=== PATIENT | female | born 1960 | race American Indian/Alaskan Native ===

== ENCOUNTER 2018-01-04 11:30 | Inpatient (IN) | payer MEDICAID, OTHER ==
[2018-01-04 11:35] VITALS: BMI 24.1
[2018-01-04] MEDS ORDERED: Iodixanol 320 mg/ml 150 ml Bottle IV ONE (11:41)
[2018-01-04 11:49] LABS: BASO # 0.1 K/uL (0.0-0.2); BASO % 0.8 % (0.0-2.0); EOS % 0.1 % (0.0-4.0); HEMOGLOBIN 13.1 g/dL (11.0-16.0); LYMPH # 2.4 K/uL (1.0-4.3); LYMPH % 21.8 % (20.0-40.0); MEAN CELL VOLUME 95.3 fL (81.0-99.0); MEAN CORPUSCULAR HEMOGLOBIN 32.6 pg (27.0-31.0); MEAN CORPUSCULAR HGB CONC 34.2 g/dL (33.0-37.0); MEAN PLATELET VOLUME 7.9 fL (7.2-11.7); MONO # 0.8 K/uL (0.0-0.8); MONO % 7.1 % (0.0-10.0); NEUT # 7.8 K/uL (1.8-7.0); NEUT % 70.2 % (50.0-75.0); RBC 4.03 Mil/uL (3.80-5.20); RED CELL DISTRIBUTION WIDTH 15.3 % (11.5-14.5); WHITE BLOOD COUNT 11.1 K/uL (4.8-10.8)
[2018-01-04 11:57] LABS: INR 1.1; PROTHROMBIN TIME 12.2 SECONDS (9.7-12.2)
[2018-01-04 12:02] LABS: ALB/GLOB RATIO 0.9 (1.0-2.1); ALBUMIN 3.9 g/dL (3.5-5.0); ALT/SGPT 59 U/L (9-52); AST/SGOT 88 U/L (14-36); BLOOD UREA NITROGEN 4 mg/dL (7-17); GFR AFRICAN-AMERICAN > 60; GFR NON-AFRICAN AMERICAN > 60; HDL CHOLESTEROL 81 mg/dL (30-70)
--- NOTE | 2018-01-04 12:07 | CT ---
PROCEDURE: CT HEAD WITHOUT CONTRAST. HISTORY: Code Stroke, left-sided weakness COMPARISON: None available. TECHNIQUE: Axial computed tomography images were obtained through the head/brain without intravenous contrast. Radiation dose: Total exam DLP = 860.66 mGy-cm. This CT exam was performed using one or more of the following dose reduction techniques: Automated exposure control, adjustment of the mA and/or kV according to patient size, and/or use of iterative reconstruction technique. FINDINGS: HEMORRHAGE: No intracranial hemorrhage. BRAIN: Hypodensity and loss of rushing-white matter differentiation noted at the right temporal frontal anterior parietal lobe suggestive of acute right MCA territory infarction. There is suspicious for right dens MCA sign. No atrophy or chronic microvascular ischemic changes. VENTRICLES: Unremarkable. No hydrocephalus. CALVARIUM: Unremarkable. PARANASAL SINUSES: Unremarkable as visualized. No significant inflammatory changes. MASTOID AIR CELLS: Unremarkable as visualized. No inflammatory changes. OTHER FINDINGS: None. IMPRESSION: Large hypodensity at the right brain suggestive of acute right MCA territory infarction. Suspicious for right dense MCA sign. If clinically warranted CTA of the head is suggested to evaluate for right MCA occlusion.
[2018-01-04 12:12] LABS: LDL CHOLESTEROL 92 mg/dL (0-129)
[2018-01-04] MEDS ORDERED: Potassium Chl 40 mEq in D5-1/2 1,000 ML IV SCH (12:30)
--- NOTE | 2018-01-04 12:43 | CT ---
PROCEDURE: CT Angiography of the NECK AND Brain. HISTORY: code stroke, LEFT-SIDED WEAKNESS COMPARISON: None available. TECHNIQUE: CT angiography of the neck and intracranial arteries was performed. Coronal and sagittal maximum intensity projection reformated images were generated. This CT exam was performed using one or more of the following dose reduction techniques: Automated exposure control, adjustment of the mA and/or kV according to patient size, and/or use of iterative reconstruction technique. Total exam DLP: 514.46 FINDINGS: There is common origin of the right brachiocephalic artery and left common carotid artery. The left vertebral artery originates from the aortic arch. RIGHT CAROTID ARTERIES: Common Carotid Artery: Tortuous without evidence of focal stenosis. Carotid Bifurcation: Small foci of calcifications seen. Internal Carotid Artery:There is focal moderate approximately 75-80 percent stenosis seen at the origin of right internal carotid artery. External Carotid Artery (proximal branches): Normal. LEFT CAROTID ARTERIES: Common Carotid Artery: Atherosclerotic calcifications seen at the distal left common carotid artery Carotid Bifurcation: Atherosclerotic disease and mural thickening with focal stenosis noted at the carotid bifurcation Internal Carotid Artery:Mild approximately 50 percent stenosis seen at the origin of the left internal carotid artery. External Carotid Artery (proximal branches): Normal. VERTEBRAL ARTERIES: Right Vertebral Artery: Patent Left Vertebral Artery: Patent INTERNAL CEREBRAL ARTERIES: . The skull base, petrous, cavernous and supraclinoid segments are bilaterally patent. There are foci of mild approximately 50 percent stenosis seen at the supraclinoid portion of the left internal carotid artery There are foci of atherosclerotic calcifications seen at the supraclinoid segments and in the internal terminus portion of the distal internal carotid arteries. ANTERIOR CEREBRAL ARTERIES: The left A1 is very small in size/hypoplastic. The right A1 is patent. Post anterior cerebral arteries are patent. MIDDLE CEREBRAL ARTERIES: There is diffuse narrowing of the M1 segment of the right middle cerebral artery. There is a sharp cart of at the M1 bifurcation of the right middle cerebral artery. There is occlusion of the anterior temporal into segment of the right middle cerebral artery. POSTERIOR CIRCULATION: Basilar Artery: Unremarkable. Distal Vertebral Arteries: Small size distal vertebral arteries noted. Posterior Cerebral Arteries: Post posterior cerebral arteries are patent. Posterior Inferior Cerebellar Arteries: Unremarkable. ANEURYSM/ VASCULAR MALFORMATIONS: None. OTHER FINDINGS: None. IMPRESSION: Focal moderate stenosis approximately 75-80 percent noted at the origin of the right internal carotid artery with possible soft plaque. Mild approximately 55 percent stenosis noted at the origin of the left internal carotid artery. Diffuse atherosclerotic disease and calcification noted at the distal internal carotid arteries bilaterally with foci of mild stenosis noted at the supraclinoid portion of the left internal carotid artery. Diffuse approximately 50 percent stenosis of M1 segment of the right middle cerebral artery. Sharp cut off at the M1 bifurcation of the right middle cerebral artery noted. Occlusion of the anterior temporal M2 segment of the right middle cerebral artery at its origin.
--- NOTE | 2018-01-04 12:53 | C.PDOC ---
History Of Present Illness Patient is a 57 y/o female who presents to the ED with family complaining of slurred speech and leaning to the left side at 11am this morning. Patient's family reported patient was last seen at baseline around 9:30 pm last night. Patient admits to drinking Merlot last night; family notes slurred speech subsequent to 9:30pm when patient answered a phone call, but attributed it to alcohol intoxication; patient also rolled out of bed last night and hit head. Denies any CP or SOB. No other physical complaints at this time. Time Seen by Provider: 01/04/18 11:35 Chief Complaint (Nursing): Weakness/Neurological Deficit History Per: Patient, Family History/Exam Limitations: no limitations Onset/Duration Of Symptoms: Hrs (last at baseline at 9:30pm last night) Current Symptoms Are (Timing): Still Present Recent travel outside of the [place]: No - Symptoms Of CVA Associated Symptoms: Impaired Speech, Decreased Ability To Walk (leaning to the left) Recent Head Trauma: Yes Past Medical History Reviewed: Historical Data, Nursing Documentation, Vital Signs Vital Signs: Last Vital Signs Temp 98 F 01/04/18 13:13 Pulse 99 H 01/04/18 13:13 Resp 18 01/04/18 13:13 BP 173/104 H 01/04/18 13:13 Pulse Ox 100 01/04/18 13:25 - Medical History PMH: No Chronic Diseases Surgical History: No Surg Hx Family History: States: No Known Family Hx - Social History Hx Tobacco Use: Yes Hx Alcohol Use: Yes Hx Substance Use: No - Immunization History Hx Tetanus Toxoid Vaccination: No Hx Influenza Vaccination: No Hx Pneumococcal Vaccination: No Review Of Systems Neurological: Positive for: Change in Speech (slurred) Physical Exam - Physical Exam Appears: No Acute Distress Skin: Normal Color, Warm, Dry Head: Atraumatic, Normacephalic Eye(s): right: Other (right gaze palsy with inability to look to the left) Oral Mucosa: Moist Cardiovascular: Rhythm Regular, No Murmur Respiratory: Normal Breath Sounds, No Rales, No Rhonchi, No Wheezing Gastrointestinal/Abdominal: Soft, No Tenderness Neurological/Psych: Normal Motor (0/5 strength in left upper and lower extremities) Other Neurological Findings: Facial Palsy (left facial palsy) Additional Physical Exam Comments: Assessment: CVA ED Course And Treatment - Laboratory Results Result Diagrams: 01/04/18 11:43 01/04/18 11:43 ECG: Interpreted By Me, Viewed By Me ECG Rhythm: Sinus Rhythm, Nonspecific Changes Interpretation Of ECG: normal intervals, normal axis, no ST/T wave abnormalities Rate From EC (bpm) O2 Sat by Pulse Oximetry: 100 (room air) Pulse Ox Interpretation: Normal - CT Scan/US CTA Other Rad Studies (CT/US): Interpreted By Me, Read By Radiologist CT/US Interpretation: PROCEDURE: CT Angiography of the NECK AND Brain. HISTORY : code stroke, LEFT-SIDED WEAKNESS. COMPARISON: None available. TECHNIQUE: CT angiography of the neck and intracranial arteries was performed. Coronal and sagittal maximum intensity projection reformated images were generated. This CT exam was performed using one or more of the following dose reduction techniques: Automated exposure control, adjustment of the mA and/or kV according to patient size, and/or use of iterative reconstruction technique. Total exam DLP: 514.46. FINDINGS: There is common origin of the right brachiocephalic artery and left common carotid artery. The left vertebral artery originates from the aortic arch. RIGHT CAROTID ARTERIES: Common Carotid Artery: Tortuous without evidence of focal stenosis. Carotid Bifurcation: Small foci of calcifications seen. Internal Carotid Artery:There is focal moderate approximately 75-80 percent stenosis seen at the origin of right internal carotid artery. External Carotid Artery (proximal branches): Normal. LEFT CAROTID ARTERIES: Common Carotid Artery: Atherosclerotic calcifications seen at the distal left common carotid artery. Carotid Bifurcation: Atherosclerotic disease and mural thickening with focal stenosis noted at the carotid bifurcation. Internal Carotid Artery:Mild approximately 50 percent stenosis seen at the origin of the left internal carotid artery. External Carotid Artery (proximal branches): Normal. VERTEBRAL ARTERIES: Right Vertebral Artery: Patent. Left Vertebral Artery: Patent. INTERNAL CEREBRAL ARTERIES: . The skull base, petrous, cavernous and supraclinoid segments are bilaterally patent. There are foci of mild approximately 50 percent stenosis seen at the supraclinoid portion of the left internal carotid artery There are foci of atherosclerotic calcifications seen at the supraclinoid segments and in the internal terminus portion of the distal internal carotid arteries. ANTERIOR CEREBRAL ARTERIES: The left A1 is very small in size/hypoplastic. The right A1 is patent. Post anterior cerebral arteries are patent. MIDDLE CEREBRAL ARTERIES: There is diffuse narrowing of the M1 segment of the right middle cerebral artery. There is a sharp cart of at the M1 bifurcation of the right middle cerebral artery. There is occlusion of the anterior temporal into segment of the right middle cerebral artery. POSTERIOR CIRCULATION: Basilar Artery: Unremarkable. Distal Vertebral Arteries : Small size distal vertebral arteries noted. Posterior Cerebral Arteries: Post posterior cerebral arteries are patent. Posterior Inferior Cerebellar Arteries: Unremarkable. ANEURYSM/ VASCULAR MALFORMATIONS: None. OTHER FINDINGS: None. IMPRESSION: Focal moderate stenosis approximately 75-80 percent noted at the origin of the right internal carotid artery with possible soft plaque. Mild approximately 55 percent stenosis noted at the origin of the left internal carotid artery. Diffuse atherosclerotic disease and calcification noted at the distal internal carotid arteries bilaterally with foci of mild stenosis noted at the supraclinoid portion of the left internal carotid artery. Diffuse approximately 50 percent stenosis of M1 segment of the right middle cerebral artery. Sharp cut off at the M1 bifurcation of the right middle cerebral artery noted. Occlusion of the anterior temporal M2 segment of the right middle cerebral artery at its origin. CT head Other Rad Studies (CT/US): Interpreted By Me, Read By Radiologist CT/US Interpretation: PROCEDURE: CT HEAD WITHOUT CONTRAST. HISTORY: Code Stroke, left-sided weakness. COMPARISON: None available. TECHNIQUE: Axial computed tomography images were obtained through the head/brain without intravenous contrast. Radiation dose: Total exam DLP = 860.66 mGy-cm. This CT exam was performed using one or more of the following dose reduction techniques: Automated exposure control, adjustment of the mA and/or kV according to patient size, and/or use of iterative reconstruction technique. FINDINGS: HEMORRHAGE: No intracranial hemorrhage. BRAIN: Hypodensity and loss of rushing-white matter differentiation noted at the right temporal frontal anterior parietal lobe suggestive of acute right MCA territory infarction. There is suspicious for right dens MCA sign. No atrophy or chronic microvascular ischemic changes. VENTRICLES: Unremarkable. No hydrocephalus. CALVARIUM: Unremarkable. PARANASAL SINUSES: Unremarkable as visualized. No significant inflammatory changes. MASTOID AIR CELLS: Unremarkable as visualized. No inflammatory changes. OTHER FINDINGS: None. IMPRESSION: Large hypodensity at the right brain suggestive of acute right MCA territory infarction. Suspicious for right dense MCA sign. If clinically warranted CTA of the head is suggested to evaluate for right MCA occlusion. Progress Note: Head CT, EKG, CXR, drug screen, echo, and blood work ordered. Aspirin, IV fluids, and dextrose administered. Case discussed with Dr. Lebron; Dr. Villarreal notified for admission. ICU evaluated and accepted patient under Dr. Villarreal's service. - Physician Consult Information Time Consulting Physician Contacted: 12:30 Physician Contacted: Lars Castillo Outcome Of Conversation: CT and CTA ordered. CT demonstrates right CVA and case discussed further with Dr. Castillo at 12:40pm; patient is not a candidate for TPA. Critical Care Time - Critical Care Note Total Time (in mins): 90 Documented critical care: time excludes all time spent performing seperately billable procedures. Disposition Discussed With DrNicole: Vitaliy Villarreal Doctor Will See Patient In The: Hospital Counseled Patient/Family Regarding: Studies Performed, Diagnosis - Disposition Disposition: HOSPITALIZED Disposition Time: 13:21 Condition: FAIR - Clinical Impression Clinical Impression: CVA (cerebral vascular accident) - Scribe Statement The provider has reviewed the documentation as recorded by the Scribe Bridgette Ingram All medical record entries made by the Scribe were at my direction and personally dictated by me. I have reviewed the chart and agree that the record accurately reflects my personal performance of the history, physical exam, medical decision making, and the department course for this patient. I have also personally directed, reviewed, and agree with the discharge instructions and disposition. NIHSS Stroke Scale - Date/Time Evaluation Performed Date Performed: 01/04/18 Time Performed: 11:35 When Was NIHSS Performed: Baseline - How Severe is the Stroke Level of Consciousness: 0=Alert LOC to Questions: 0=Both comments correct LOC to commands: 0=Obeys both correctly Best Gaze: 1=Partial gaze palsy Visual: 1=Partial hemianopia Facial: 2=Partial (lower face paralysis) Motor Arm - Left: 4=No movement Motor Arm - Right: 0=No drift Motor Leg - Left: 4=No movement Motor Leg - Right: 0=No drift Limb Ataxia: 1=Present Upper or Lower Sensory: 1=Mild to moderate loss Best Language: 1=Mild to moderate aphasia Dysarthia: 1=Mild to moderate slurring Extinction & Inattention (Neglect): 1=Partial neglect (mild santino-attention) Score: 17
[2018-01-04 12:59] LABS: SQUAMOUS EPITHIAL < 1 /hpf (0-5); URINE BACTERIA MANY (<OCC); URINE BILIRUBIN NEGATIVE (NEGATIVE); URINE BLOOD 1+ (NEGATIVE); URINE CLARITY Clear (Clear); URINE COLOR Yellow (YELLOW); URINE GLUCOSE (UA) NORMAL (Normal); URINE LEUKOCYTE ESTERASE NEG Leu/uL (Negative); URINE PROTEIN NEGATIVE (NEGATIVE); URINE UROBILINOGEN NORMAL mg/dL (0.2-1.0)
[2018-01-04 13:19] LABS: BENZODIAZEPINES, UR NEGATIVE (NEGATIVE); OPIATES, UR NEGATIVE (NEGATIVE); PHENCYCLIDINE, UR NEGATIVE (NEGATIVE)
[2018-01-04 13:25] LABS: BARBITURATES, UR NEGATIVE (NEGATIVE)
--- NOTE | 2018-01-04 13:34 | CP.PCM.CON ---
History of Present Illness - History of Present Illness History of Present Illness: Chief complaint: Slurred speech History of present illness: Consultation was called for ICU because of the acute CVA. Patient is a 57-year-old female with known history of hypertension but not on any medication as per the family patient does not take any medication, but she used to be a heavy smoker. On also heavy drinker. Patient was living in [place], she recently came to [place]. Yesterday she was comparing of some headache, and she was also having some trouble according to the patient's family but at that time they did not call the ambulance, and it other family members was trying to get the ambulance but unable to bring her to the hospital. Again this morning when she wake up she was having slurred speech, weakness on the left side, and called the ambulance and came to the emergency room. The family is at bedside. Patient's sister at bedside I spoke to her in details. According to her patient is a heavy drinker, and also heavy smoker, does not see , and doesn't take any medications. In the past patient was hospitalized with the alcoholic intoxication and withdrawal. Past medical history unknown Allergies no known drug allergy Personal history: Alcoholic, and also smoker long time. Review of systems: Patient is currently awake and responding, but dense hemiplegia on the left side , and also slurred speech noted. Patient is able to understand. She does not have any chest pain, mild headache in the back of the neck noted, also sensory symptoms in the left leg on the left side noted On examination: Vital signs are reviewed Mild tachycardia, and elevated blood pressure noted Chest bilateral good air entry. Regular heart sound. Abdomen soft. Nontender. Next images no pedal edema CEO NA patient is alert and awake. Oriented. Patient has a dense hemiplegia involving the left side, associated with a sensory loss. Decreased reflexes. The patient able to comprehend, able to speak, left-sided facial weakness noted Labs reviewed Nonspecific Serum alcohol level less than [address] scan of the head showing evidence of acute right MCA territory infarct with the demarcation in the brain, suggesting recent acute CVA, non-negative CT angiogram showing atherosclerotic disease involving the right MCA occlusion Also right coronary artery disease 75-80% occlusion Assessment and recommendation: 57-year-old female with a possible history of alcoholism and hypertension and withdrawal admitted with acute right-sided ischemic infarct, and associated with left-sided dense hemiplegia with the sensory symptoms. Underlying alcoholism, withdrawal cannot be ruled out. Hypertension. Atherosclerosis. Closely monitor. ICU. Neuro watch. Neurosurgical intervention may be needed, neurological consultation. Antiplatelets, anticholesterol and DVT prophylaxis aspiration prevention and other routine ICU management Past Patient History - Past Social History Smoking Status: Heavy Smoker > 10 Cigarettes Daily - PSYCHIATRIC Hx Substance Use: No - SURGICAL HISTORY Hx Surgeries: No Meds Allergies/Adverse Reactions: Allergies Allergy/AdvReac Type Severity Reaction Status Date / Time No Known Allergies Allergy Verified 01/04/18 11:34 - Medications Medications: Current Medications Potassium Chloride/Dextrose/Sod Cl (Potassium Chl 40 Meq In D5-1/2ns) 1,000 mls @ 0 mls/hr IV .Q0M REYNALDO PRN Reason: Per Protocol Rosuvastatin Calcium (Crestor) 5 mg PO HS REYNALDO Results - Vital Signs Recent Vital Signs: Last Vital Signs Temp 98 F 01/04/18 13:13 Pulse 99 H 01/04/18 13:13 Resp 18 01/04/18 13:13 BP 173/104 H 01/04/18 13:13 Pulse Ox 100 01/04/18 13:27 - Labs Result Diagrams: 01/04/18 11:43 01/04/18 11:43 Labs: Laboratory Results - last 24 hr 01/04/18 01/04/18 01/04/18 11:35 11:43 11:43 WBC 11.1 H RBC 4.03 Hgb 13.1 Hct 38.4 MCV 95.3 MCH 32.6 H MCHC 34.2 RDW 15.3 H Plt Count 281 MPV 7.9 Neut % (Auto) 70.2 Lymph % (Auto) 21.8 Kane % (Auto) 7.1 Eos % (Auto) 0.1 Baso % (Auto) 0.8 Neut # (Auto) 7.8 H Lymph # (Auto) 2.4 Kane # (Auto) 0.8 Eos # (Auto) 0.0 Baso # (Auto) 0.1 PT 12.2 INR 1.1 APTT 26 Sodium Potassium Chloride Carbon Dioxide Anion Gap BUN Creatinine Est GFR ( Amer) Est GFR (Non-Af Amer) POC Glucose (mg/dL) 98 Random Glucose Hemoglobin A1c Calcium Total Bilirubin AST ALT Alkaline Phosphatase Troponin I Total Protein Albumin Globulin Albumin/Globulin Ratio Triglycerides Cholesterol LDL Cholesterol Direct HDL Cholesterol Urine Color Urine Clarity Urine pH Ur Specific [place] Urine Protein Urine Glucose (UA) Urine Ketones Urine Blood Urine Nitrate Urine Bilirubin Urine Urobilinogen Ur Leukocyte Esterase Urine WBC (Auto) Urine RBC (Auto) Ur Squamous Epith Cells Urine Bacteria Urine Opiates Screen Urine Methadone Screen Ur Barbiturates Screen Ur Phencyclidine Scrn Ur Amphetamines Screen U Benzodiazepines Scrn U Oth Cocaine Metabols U Cannabinoids Screen Alcohol, Quantitative Blood Type Antibody Screen 01/04/18 01/04/18 01/04/18 11:43 11:43 11:43 WBC RBC Hgb Hct MCV MCH MCHC RDW Plt Count MPV Neut % (Auto) Lymph % (Auto) Kane % (Auto) Eos % (Auto) Baso % (Auto) Neut # (Auto) Lymph # (Auto) Kane # (Auto) Eos # (Auto) Baso # (Auto) PT INR APTT Sodium 141 Potassium 3.1 L Chloride 106 Carbon Dioxide 22 Anion Gap 16 BUN 4 L Creatinine 0.5 L Est GFR ( Amer) > 60 Est GFR (Non-Af Amer) > 60 POC Glucose (mg/dL) Random Glucose 106 H Hemoglobin A1c 5.0 Calcium 9.0 Total Bilirubin 0.9 AST 88 H ALT 59 H Alkaline Phosphatase 96 Troponin I < 0.0120 Total Protein 8.0 Albumin 3.9 Globulin 4.1 H Albumin/Globulin Ratio 0.9 L Triglycerides 248 H Cholesterol 210 H LDL Cholesterol Direct 92 HDL Cholesterol 81 H Urine Color Urine Clarity Urine pH Ur Specific [place] Urine Protein Urine Glucose (UA) Urine Ketones Urine Blood Urine Nitrate Urine Bilirubin Urine Urobilinogen Ur Leukocyte Esterase Urine WBC (Auto) Urine RBC (Auto) Ur Squamous Epith Cells Urine Bacteria Urine Opiates Screen Urine Methadone Screen Ur Barbiturates Screen Ur Phencyclidine Scrn Ur Amphetamines Screen U Benzodiazepines Scrn U Oth Cocaine Metabols U Cannabinoids Screen Alcohol, Quantitative < 10 Blood Type O POSITIVE Antibody Screen Negative 01/04/18 01/04/18 12:38 12:38 WBC RBC Hgb Hct MCV MCH MCHC RDW Plt Count MPV Neut % (Auto) Lymph % (Auto) Kane % (Auto) Eos % (Auto) Baso % (Auto) Neut # (Auto) Lymph # (Auto) Kane # (Auto) Eos # (Auto) Baso # (Auto) PT INR APTT Sodium Potassium Chloride Carbon Dioxide Anion Gap BUN Creatinine Est GFR ( Amer) Est GFR (Non-Af Amer) POC Glucose (mg/dL) Random Glucose Hemoglobin A1c Calcium Total Bilirubin AST ALT Alkaline Phosphatase Troponin I Total Protein Albumin Globulin Albumin/Globulin Ratio Triglycerides Cholesterol LDL Cholesterol Direct HDL Cholesterol Urine Color Yellow Urine Clarity Clear Urine pH 5.0 Ur Specific [place] 1.031 H Urine Protein Negative Urine Glucose (UA) Normal Urine Ketones Negative Urine Blood 1+ H Urine Nitrate Positive H Urine Bilirubin Negative Urine Urobilinogen Normal Ur Leukocyte Esterase Neg Urine WBC (Auto) 2 Urine RBC (Auto) 1 Ur Squamous Epith Cells < 1 Urine Bacteria Many H Urine Opiates Screen Negative Urine Methadone Screen Negative Ur Barbiturates Screen Negative Ur Phencyclidine Scrn Negative Ur Amphetamines Screen Negative U Benzodiazepines Scrn Negative U Oth Cocaine Metabols Negative U Cannabinoids Screen Negative Alcohol, Quantitative Blood Type Antibody Screen
[2018-01-04] MEDS ORDERED: Thiamine 100 mg/ml Inj IV ONE (13:38)
[2018-01-04] MEDS ORDERED: Sodium Chloride 0.9% 1,000 ML IV SCH (13:45)
--- NOTE | 2018-01-04 15:17 | CP.PCM.HP ---
<Juanita Yan - Last Filed: 01/04/18 15:30> History of Present Illness - History of Present Illness History of Present Illness: HPI: Patient is a 57 year old female with no significant PMH who presents to the ED with LEFT sided paralysis. Her family was at bedside. Patient was here from [place] visiting her family and last night she started having slurred speech around 8 pm. The family was a little concerned but knew she had been drinking wine so they were unsure if it was an actual problem. They then noticed she was acting "off" and had some weakness in her LEFT arm around 9:45 pm. Family called the ambulance, however when the ambulance arrived, the son and patient would not let the EMS in the door. Patient says she had a RIGHT- sided headache all night and then when she woke up this morning she could not move her LEFT arm or leg and also had no feeling in these extremities. Patient relays a recent history of tauma to her head stating that she had fallen on her birthday in [birth year] and noticed blurring of her vision out of her LEFT eye since then. She also remembers falling out of her bed yesterday morning and bumping her head. She denies any fever, chills, dizziness, changes in her hearing, chest pain, SOB, palpitations, cough, abdominal pain, nausea, vomiting , diarrhea, constipation, dysuria, urinary frequency, blood in urine/stool, and lower extremity pain or edema. PMD: patient cannot remember the name but sees a primary care doctor in [place] PMH: denies Meds: denies Allergies: NKDA FH: denies SH: heavy drinker (quit drinking liquor 1 month ago but still has wine everyday) ; smokes 1/2-1 PPD for 45 years; denies elicit drug use Present on Admission - Present on Admission Any Indicators Present on Admission: No Review of Systems - Constitutional Constitutional: Headache, Weakness. absent: Chills, Fever - EENT Eyes: Blurred Vision (left eye ), Diplopia (left eye ) Ears: absent: Decreased Hearing Nose/Mouth/Throat: Dysphagia - Cardiovascular Cardiovascular: absent: Chest Pain, Dyspnea, Palpitations - Respiratory Respiratory: absent: Cough, Dyspnea - Gastrointestinal Gastrointestinal: absent: Abdominal Pain, Change in Bowel Habits, Constipation, Diarrhea, Hematochezia, Melena, Nausea, Vomiting - Genitourinary Genitourinary: absent: Dysuria, Urinary Frequency, Urinary Urgency - Musculoskeletal Musculoskeletal: Limited Range of Motion, Muscle Weakness, Numbness - Integumentary Integumentary: absent: Rash - Neurological Neurological: Abnormal Speech, Numbness, Headaches, Loss of Vision, Sensory Deficit, Weakness. absent: Abnormal Hearing, Syncope - Psychiatric Psychiatric: Anxiety - Hematologic/Lymphatic Hematologic: absent: Easy Bleeding, Easy Bruising Past Patient History - Past Social History Smoking Status: Heavy Smoker > 10 Cigarettes Daily - PSYCHIATRIC Hx Substance Use: No - SURGICAL HISTORY Hx Surgeries: No Meds Allergies/Adverse Reactions: Allergies Allergy/AdvReac Type Severity Reaction Status Date / Time No Known Allergies Allergy Verified 01/04/18 11:34 Physical Exam - Constitutional Appears: Non-toxic, No Acute Distress - Head Exam Head Exam: ATRAUMATIC, NORMAL INSPECTION, NORMOCEPHALIC - Eye Exam Additional comments: Left pupil sluggish to react to light rightward gaze preference - ENT Exam ENT Exam: Mucous Membranes Moist - Neck Exam Neck exam: Positive for: Normal Inspection - Respiratory Exam Respiratory Exam: Clear to Auscultation Bilateral, NORMAL BREATHING PATTERN - Cardiovascular Exam Cardiovascular Exam: Tachycardia, REGULAR RHYTHM, +S1, +S2. absent: Diastolic murmur, Gallop, Rubs, Systolic Murmur - GI/Abdominal Exam GI & Abdominal Exam: Normal Bowel Sounds, Soft. absent: Distended, Tenderness - Extremities Exam Extremities exam: Negative for: calf tenderness, pedal edema - Back Exam Back exam: NORMAL INSPECTION - Neurological Exam Neurological exam: Alert, Motor Sensory Deficit, Oriented x3 - Expanded Neurological Exam Expanded Neurological exam: Tremor (occasional, patient attributes this to anxiety ) Speech: Slurred Speech Cranial nerves: EOM's Intact: Abnormal Left, Abnormal Right (right gaze preference), Facial Palsey w/Forehead Movement: Abnormal Left, Facial Sensation : Abnormal Left, Tongue Deviation: Abnormal Left Upper motor neuron: Victoriano Neglect: Abnormal Left Sensory exam: Lower Extremity 2 Point Discrimination: Abnormal Left, Lower Extremity Light Touch: Abnormal Left, Lower Extremity Pin Prick: Abnormal Left, Lower Extremity Temperature: Abnormal Left, Upper Extremity 2 Point Discrimination: Abnormal Left, Upper Extremity Light Touch: Abnormal Left, Upper Extremity Pin Prick: Abnormal Left, Upper Extremity Temperature: Abnormal Left Neuro motor strength exam: Left Upper Extremity: 0, Right Upper Extremity: 5, Left Lower Extremity: 0, Right Lower Extremity: 5 DTR: Achilles Tendon Left: 0, Brachioradialis Left: 1+, Patellar Left: 0, Tricep Left: 1+ Coma Scale Eye Opening: SPONTANEOUS Coma Scale Motor Response: OBEYS COMMANDS Coma Scale Verbal: Oriented Coma Scale Total: 15 - Psychiatric Exam Psychiatric exam: Anxious - Skin Skin Exam: Dry, Intact, Normal Color, Warm Results - Vital Signs Recent Vital Signs: Last Vital Signs Temp 98.3 F 01/04/18 13:45 Pulse 89 01/04/18 14:03 Resp 18 01/04/18 14:03 BP 170/106 H 01/04/18 14:03 Pulse Ox 99 01/04/18 14:03 - Labs Result Diagrams: 01/04/18 11:43 01/04/18 11:43 Labs: Laboratory Results - last 24 hr 01/04/18 01/04/18 01/04/18 11:35 11:43 11:43 WBC 11.1 H RBC 4.03 Hgb 13.1 Hct 38.4 MCV 95.3 MCH 32.6 H MCHC 34.2 RDW 15.3 H Plt Count 281 MPV 7.9 Neut % (Auto) 70.2 Lymph % (Auto) 21.8 Stevens % (Auto) 7.1 Eos % (Auto) 0.1 Baso % (Auto) 0.8 Neut # (Auto) 7.8 H Lymph # (Auto) 2.4 Stevens # (Auto) 0.8 Eos # (Auto) 0.0 Baso # (Auto) 0.1 PT 12.2 INR 1.1 APTT 26 Sodium Potassium Chloride Carbon Dioxide Anion Gap BUN Creatinine Est GFR ( Amer) Est GFR (Non-Af Amer) POC Glucose (mg/dL) 98 Random Glucose Hemoglobin A1c Calcium Total Bilirubin AST ALT Alkaline Phosphatase Troponin I Total Protein Albumin Globulin Albumin/Globulin Ratio Triglycerides Cholesterol LDL Cholesterol Direct HDL Cholesterol Urine Color Urine Clarity Urine pH Ur Specific [place] Urine Protein Urine Glucose (UA) Urine Ketones Urine Blood Urine Nitrate Urine Bilirubin Urine Urobilinogen Ur Leukocyte Esterase Urine WBC (Auto) Urine RBC (Auto) Ur Squamous Epith Cells Urine Bacteria Urine Opiates Screen Urine Methadone Screen Ur Barbiturates Screen Ur Phencyclidine Scrn Ur Amphetamines Screen U Benzodiazepines Scrn U Oth Cocaine Metabols U Cannabinoids Screen Alcohol, Quantitative Blood Type Antibody Screen 01/04/18 01/04/18 01/04/18 11:43 11:43 11:43 WBC RBC Hgb Hct MCV MCH MCHC RDW Plt Count MPV Neut % (Auto) Lymph % (Auto) Stevens % (Auto) Eos % (Auto) Baso % (Auto) Neut # (Auto) Lymph # (Auto) Stevens # (Auto) Eos # (Auto) Baso # (Auto) PT INR APTT Sodium 141 Potassium 3.1 L Chloride 106 Carbon Dioxide 22 Anion Gap 16 BUN 4 L Creatinine 0.5 L Est GFR ( Amer) > 60 Est GFR (Non-Af Amer) > 60 POC Glucose (mg/dL) Random Glucose 106 H Hemoglobin A1c 5.0 Calcium 9.0 Total Bilirubin 0.9 AST 88 H ALT 59 H Alkaline Phosphatase 96 Troponin I < 0.0120 Total Protein 8.0 Albumin 3.9 Globulin 4.1 H Albumin/Globulin Ratio 0.9 L Triglycerides 248 H Cholesterol 210 H LDL Cholesterol Direct 92 HDL Cholesterol 81 H Urine Color Urine Clarity Urine pH Ur Specific [place] Urine Protein Urine Glucose (UA) Urine Ketones Urine Blood Urine Nitrate Urine Bilirubin Urine Urobilinogen Ur Leukocyte Esterase Urine WBC (Auto) Urine RBC (Auto) Ur Squamous Epith Cells Urine Bacteria Urine Opiates Screen Urine Methadone Screen Ur Barbiturates Screen Ur Phencyclidine Scrn Ur Amphetamines Screen U Benzodiazepines Scrn U Oth Cocaine Metabols U Cannabinoids Screen Alcohol, Quantitative < 10 Blood Type O POSITIVE Antibody Screen Negative 01/04/18 01/04/18 12:38 12:38 WBC RBC Hgb Hct MCV MCH MCHC RDW Plt Count MPV Neut % (Auto) Lymph % (Auto) Stevens % (Auto) Eos % (Auto) Baso % (Auto) Neut # (Auto) Lymph # (Auto) Stevens # (Auto) Eos # (Auto) Baso # (Auto) PT INR APTT Sodium Potassium Chloride Carbon Dioxide Anion Gap BUN Creatinine Est GFR ( Amer) Est GFR (Non-Af Amer) POC Glucose (mg/dL) Random Glucose Hemoglobin A1c Calcium Total Bilirubin AST ALT Alkaline Phosphatase Troponin I Total Protein Albumin Globulin Albumin/Globulin Ratio Triglycerides Cholesterol LDL Cholesterol Direct HDL Cholesterol Urine Color Yellow Urine Clarity Clear Urine pH 5.0 Ur Specific [place] 1.031 H Urine Protein Negative Urine Glucose (UA) Normal Urine Ketones Negative Urine Blood 1+ H Urine Nitrate Positive H Urine Bilirubin Negative Urine Urobilinogen Normal Ur Leukocyte Esterase Neg Urine WBC (Auto) 2 Urine RBC (Auto) 1 Ur Squamous Epith Cells < 1 Urine Bacteria Many H Urine Opiates Screen Negative Urine Methadone Screen Negative Ur Barbiturates Screen Negative Ur Phencyclidine Scrn Negative Ur Amphetamines Screen Negative U Benzodiazepines Scrn Negative U Oth Cocaine Metabols Negative U Cannabinoids Screen Negative Alcohol, Quantitative Blood Type Antibody Screen Assessment & Plan - Assessment and Plan (Free Text) Plan: Acute CVA - CT head noncontrast 11:30 AM 01/04 - large hypodensity at the right brain suggestive of acute right MCA territory infarction - Dr. Castillo, neurology consulted help appreciated: not a TPA candidate - out of time window - Admission to ICU - NIHSS - 17 - Neuro checks Q1hour, BP checks Q15 min (will intervene if bp exceed 210/110) - Elevate head of bed to 30 degrees, aspiration precautions - will follow up repeat CT in 12 hours to observe for progression and monitor for herniation - Head/Neck CTA - right coronary artyer disease 75-80% oclusion - Patient failed nursing swallow screen - f/u swalloe eval - NPO - ASA 325 given rectally in the ED - Crestor to be given when patient is able to tolerate PO, will consider NG placement - PT/OT - HbA1c 5 - UDS negative, Alcohol <10 - f/u TSH, am labs Hyperlipidemia - Tchol 210, Triglycerides 248, LDL 92, HDL 81 - Statin to be started when patient can tolerate PO Hypokalemia - K 3.1 - f/u Mg - Replaced with IV K Elevated LFTS - f/u hepatitis, GGT Leukocytosis - could be reactive - f/u UA, chest X ray Prophylaxis - Protonix 40mg IVP daily - SCDs <Vitaliy Villarreal H - Last Filed: 01/04/18 17:14> Results - Vital Signs Recent Vital Signs: Last Vital Signs Temp 98.1 F 01/04/18 16:03 Pulse 98 H 01/04/18 16:08 Resp 15 01/04/18 16:08 BP 170/106 H 01/04/18 14:03 Pulse Ox 100 01/04/18 16:08 - Labs Result Diagrams: 01/04/18 11:43 01/04/18 11:43 Labs: Laboratory Results - last 24 hr 01/04/18 01/04/18 01/04/18 11:35 11:43 11:43 WBC 11.1 H RBC 4.03 Hgb 13.1 Hct 38.4 MCV 95.3 MCH 32.6 H MCHC 34.2 RDW 15.3 H Plt Count 281 MPV 7.9 Neut % (Auto) 70.2 Lymph % (Auto) 21.8 Stevens % (Auto) 7.1 Eos % (Auto) 0.1 Baso % (Auto) 0.8 Neut # (Auto) 7.8 H Lymph # (Auto) 2.4 Stevens # (Auto) 0.8 Eos # (Auto) 0.0 Baso # (Auto) 0.1 PT 12.2 INR 1.1 APTT 26 Sodium Potassium Chloride Carbon Dioxide Anion Gap BUN Creatinine Est GFR ( Amer) Est GFR (Non-Af Amer) POC Glucose (mg/dL) 98 Random Glucose Hemoglobin A1c Calcium Total Bilirubin AST ALT Alkaline Phosphatase Troponin I Total Protein Albumin Globulin Albumin/Globulin Ratio Triglycerides Cholesterol LDL Cholesterol Direct HDL Cholesterol Urine Color Urine Clarity Urine pH Ur Specific [place] Urine Protein Urine Glucose (UA) Urine Ketones Urine Blood Urine Nitrate Urine Bilirubin Urine Urobilinogen Ur Leukocyte Esterase Urine WBC (Auto) Urine RBC (Auto) Ur Squamous Epith Cells Urine Bacteria Urine Opiates Screen Urine Methadone Screen Ur Barbiturates Screen Ur Phencyclidine Scrn Ur Amphetamines Screen U Benzodiazepines Scrn U Oth Cocaine Metabols U Cannabinoids Screen Alcohol, Quantitative Blood Type Antibody Screen 01/04/18 01/04/18 01/04/18 11:43 11:43 11:43 WBC RBC Hgb Hct MCV MCH MCHC RDW Plt Count MPV Neut % (Auto) Lymph % (Auto) Stevens % (Auto) Eos % (Auto) Baso % (Auto) Neut # (Auto) Lymph # (Auto) Stevens # (Auto) Eos # (Auto) Baso # (Auto) PT INR APTT Sodium 141 Potassium 3.1 L Chloride 106 Carbon Dioxide 22 Anion Gap 16 BUN 4 L Creatinine 0.5 L Est GFR ( Amer) > 60 Est GFR (Non-Af Amer) > 60 POC Glucose (mg/dL) Random Glucose 106 H Hemoglobin A1c 5.0 Calcium 9.0 Total Bilirubin 0.9 AST 88 H ALT 59 H Alkaline Phosphatase 96 Troponin I < 0.0120 Total Protein 8.0 Albumin 3.9 Globulin 4.1 H Albumin/Globulin Ratio 0.9 L Triglycerides 248 H Cholesterol 210 H LDL Cholesterol Direct 92 HDL Cholesterol 81 H Urine Color Urine Clarity Urine pH Ur Specific [place] Urine Protein Urine Glucose (UA) Urine Ketones Urine Blood Urine Nitrate Urine Bilirubin Urine Urobilinogen Ur Leukocyte Esterase Urine WBC (Auto) Urine RBC (Auto) Ur Squamous Epith Cells Urine Bacteria Urine Opiates Screen Urine Methadone Screen Ur Barbiturates Screen Ur Phencyclidine Scrn Ur Amphetamines Screen U Benzodiazepines Scrn U Oth Cocaine Metabols U Cannabinoids Screen Alcohol, Quantitative < 10 Blood Type O POSITIVE Antibody Screen Negative 01/04/18 01/04/18 12:38 12:38 WBC RBC Hgb Hct MCV MCH MCHC RDW Plt Count MPV Neut % (Auto) Lymph % (Auto) Stevens % (Auto) Eos % (Auto) Baso % (Auto) Neut # (Auto) Lymph # (Auto) Stevens # (Auto) Eos # (Auto) Baso # (Auto) PT INR APTT Sodium Potassium Chloride Carbon Dioxide Anion Gap BUN Creatinine Est GFR ( Amer) Est GFR (Non-Af Amer) POC Glucose (mg/dL) Random Glucose Hemoglobin A1c Calcium Total Bilirubin AST ALT Alkaline Phosphatase Troponin I Total Protein Albumin Globulin Albumin/Globulin Ratio Triglycerides Cholesterol LDL Cholesterol Direct HDL Cholesterol Urine Color Yellow Urine Clarity Clear Urine pH 5.0 Ur Specific [place] 1.031 H Urine Protein Negative Urine Glucose (UA) Normal Urine Ketones Negative Urine Blood 1+ H Urine Nitrate Positive H Urine Bilirubin Negative Urine Urobilinogen Normal Ur Leukocyte Esterase Neg Urine WBC (Auto) 2 Urine RBC (Auto) 1 Ur Squamous Epith Cells < 1 Urine Bacteria Many H Urine Opiates Screen Negative Urine Methadone Screen Negative Ur Barbiturates Screen Negative Ur Phencyclidine Scrn Negative Ur Amphetamines Screen Negative U Benzodiazepines Scrn Negative U Oth Cocaine Metabols Negative U Cannabinoids Screen Negative Alcohol, Quantitative Blood Type Antibody Screen Attending/Attestation - Attestation I have personally seen and examined this patient.: Yes I have fully participated in the care of the patient.: Yes I have reviewed all pertinent clinical information: Yes Notes (Text): Medical attending: Patient was seen and examined by me. Agree with the above note by the general medical practitioner. After reported, this is a 57 year old female who [place] when at 8 PM yesterday the family did note change in the patient. The patient - there were some family members who were concerned and at that time called an ambulance however when they did come to the house for some reason EMS was then turned away. By the morning the patient was still noted to by other family members to have weakness and this time she was brought to the ER. In the emergency room she had finding concerning for a CVA since she had very significant left arm, left leg weakness as well as left facial drooping. There is no muscle strength on the left side as well as no sensation. A CT scan was done and showed she did in fact have an acute CVA involving the Right MCA area. ER notified neurology and because of the length of time before she came into the ER she was out of the window for TPA to be given. She was able to talk, however voice / speech is very slurred. She is aware of person, place and time. There is Right side eye deviation. She has difficulty with moving eyes to the left. Pupils do contract. Her togune deviates to the left side. A CTA of the head and neck was done showing she does have on the right coronary artery stenosis of 75 to 80%. When the patient is more stable we will probably need either vascular surgery eval or neurological interventional evaluation. ASA was given rectally. She will be monitored in the ICU for changes in blood pressure as well as for any potential further neurological changes. A CT scan of the head will be repeated in 12 hrs. Because she failed the swallow study, she will be NPO. She we will also repeat swallowing study as well. I did explain to the patient and family that at some point she may need an NGT for a short period of time. Also the patient is a heavy smoker as well, we discussed this with the family. Our other large concern is the extent that the patient drinks alcohol. For now there is a PRN ativan order. However I'm not certain the patient is telling us everything about her drinking. thank you Vitaliy Villarreal
--- NOTE | 2018-01-04 15:19 | CP.PCM.PN ---
Objective - Vital Signs/Intake and Output Vital Signs (last 24 hours): Temp Pulse Resp BP Pulse Ox 98.3 F 89 18 170/106 H 99 01/04/18 13:45 01/04/18 14:03 01/04/18 14:03 01/04/18 14:03 01/04/18 14:03 - Medications Medications: Current Medications Aspirin (Aspirin) 325 mg PO DAILY REYNALDO Potassium Chloride/Dextrose/Sod Cl (Potassium Chl 40 Meq In D5-1/2ns) 1,000 mls @ 0 mls/hr IV .Q0M REYNALDO PRN Reason: Per Protocol Folic Acid 1 mg/ Sodium (Chloride) 100.2 mls @ 60 mls/hr IV DAILY REYNALDO Sodium Chloride (Sodium Chloride 0.9%) 1,000 mls @ 50 mls/hr IV .Q20H REYNALDO Last Admin: 01/04/18 14:22 Dose: 50 mls/hr Lorazepam (Ativan) 1 mg IVP Q6H PRN PRN Reason: Anxiety Pantoprazole Sodium (Protonix Inj) 40 mg IVP DAILY REYNALDO Rosuvastatin Calcium (Crestor) 5 mg PO HS REYNALDO - Labs Labs: 01/04/18 11:43 01/04/18 11:43 PT 12.2 SECONDS (9.7-12.2) 01/04/18 11:43 INR 1.1 01/04/18 11:43 APTT 26 SECONDS (21-34) 01/04/18 11:43 Assessment and Plan - Assessment and Plan (Free Text) Assessment: Acute CVA - CT head noncontrast 11:30 AM 01/04 - large hypodensity at the right brain suggestive of acute right MCA territory infarction - Dr. Castillo, neurology consulted help appreciated: not a TPA candidate - out of time window - Admission to ICU - NIHSS - 17 - Neuro checks Q1hour, BP checks Q15 min (will intervene if bp exceed 210/110) - Elevate head of bed to 30 degrees, aspiration precautions - will follow up repeat CT in 12 hours to observe for progression and monitor for herniation - Head/Neck CTA - right coronary artyer disease 75-80% oclusion - Patient failed nursing swallow screen - f/u swalloe eval - NPO - ASA 325 given rectally in the ED - Crestor to be given when patient is able to tolerate PO, will consider NG placement - PT/OT - HbA1c 5 - UDS negative, Alcohol <10 - f/u TSH, am labs Hyperlipidemia - Tchol 210, Triglycerides 248, LDL 92, HDL 81 - Statin to be started when patient can tolerate PO Hypokalemia - K 3.1 - f/u Mg - Replaced with IV K Elevated LFTS - f/u hepatitis, GGT Leukocytosis - could be reactive - f/u UA, chest X ray Prophylaxis - Protonix 40mg IVP daily - SCDs
--- NOTE | 2018-01-04 16:44 | RAD ---
HISTORY: Code Stroke COMPARISON: Comparison is made to 10/28/2012 FINDINGS: LUNGS: No active pulmonary disease. PLEURA: No significant pleural effusion identified, no pneumothorax apparent. CARDIOVASCULAR: Normal. OSSEOUS STRUCTURES: No significant abnormalities. VISUALIZED UPPER ABDOMEN: Normal. OTHER FINDINGS: None. IMPRESSION: No active disease.
--- NOTE | 2018-01-04 19:41 | CP.PCM.CON ---
History of Present Illness - History of Present Illness History of Present Illness: Mrs. Bui is a 57-year-old woman with no significant past medical history, who presented to the ED with left side weakness. The last time she was known well was last night at around 9 PM. According to the family's report, the patient began having left side weakness at around 9:45 PM last night and EMS was called, but the patient did not want to let them in. She had a right sided headache all night and when she woke up this morning, she could not move her left side. She presented to the ED this morning and CT scan of the head showed a large right MCA subacute ischemic stroke. CTA of the head/neck showed right ICA stenosis and right MCA multiple areas of occlusions and stenosis. She was not a candidate for IV tPA due to being outside the 4.5 hour time window, and was not a good candidate for thrombectomy due to multiple areas of completed infarct and ASPECT score below 6. Review of Systems - Review of Systems All systems: reviewed and no additional remarkable complaints except Past Patient History - Past Social History Smoking Status: Heavy Smoker > 10 Cigarettes Daily - MUSCULOSKELETAL/RHEUMATOLOGICAL Hx Falls: No - PSYCHIATRIC Hx Substance Use: No - SURGICAL HISTORY Hx Surgeries: No Meds Allergies/Adverse Reactions: Allergies Allergy/AdvReac Type Severity Reaction Status Date / Time No Known Allergies Allergy Verified 01/04/18 11:34 - Medications Medications: Current Medications Aspirin (Aspirin) 325 mg PO DAILY [facility] Potassium Chloride/Dextrose/Sod Cl (Potassium Chl 40 Meq In D5-1/2ns) 1,000 mls @ 0 mls/hr IV .Q0M [facility] PRN Reason: Per Protocol Folic Acid 1 mg/ Sodium (Chloride) 100.2 mls @ 60 mls/hr IV DAILY [facility] Sodium Chloride (Sodium Chloride 0.9%) 1,000 mls @ 50 mls/hr IV .Q20H [facility] Last Admin: 01/04/18 14:22 Dose: 50 mls/hr Lorazepam (Ativan) 1 mg IVP Q6H PRN PRN Reason: Anxiety Pantoprazole Sodium (Protonix Inj) 40 mg IVP DAILY [facility] Rosuvastatin Calcium (Crestor) 5 mg PO HS [facility] Physical Exam - Neurological Exam Additional comments: Dysarthria, not aphasia. Left side hemiplegia, left side neglect with anesthesia, upgoing plantar response. NIHSS = 14 Results - Vital Signs Recent Vital Signs: Last Vital Signs Temp 98.1 F 01/04/18 16:03 Pulse 98 H 01/04/18 16:08 Resp 15 01/04/18 16:08 BP 170/106 H 01/04/18 14:03 Pulse Ox 100 01/04/18 16:08 - Labs Result Diagrams: 01/04/18 11:43 01/04/18 11:43 Labs: Laboratory Results - last 24 hr 01/04/18 01/04/18 01/04/18 11:35 11:43 11:43 WBC 11.1 H RBC 4.03 Hgb 13.1 Hct 38.4 MCV 95.3 MCH 32.6 H MCHC 34.2 RDW 15.3 H Plt Count 281 MPV 7.9 Neut % (Auto) 70.2 Lymph % (Auto) 21.8 Leake % (Auto) 7.1 Eos % (Auto) 0.1 Baso % (Auto) 0.8 Neut # (Auto) 7.8 H Lymph # (Auto) 2.4 Leake # (Auto) 0.8 Eos # (Auto) 0.0 Baso # (Auto) 0.1 PT 12.2 INR 1.1 APTT 26 Sodium Potassium Chloride Carbon Dioxide Anion Gap BUN Creatinine Est GFR ( Amer) Est GFR (Non-Af Amer) POC Glucose (mg/dL) 98 Random Glucose Hemoglobin A1c Calcium Total Bilirubin AST ALT Alkaline Phosphatase Troponin I Total Protein Albumin Globulin Albumin/Globulin Ratio Triglycerides Cholesterol LDL Cholesterol Direct HDL Cholesterol Urine Color Urine Clarity Urine pH Ur Specific [place] Urine Protein Urine Glucose (UA) Urine Ketones Urine Blood Urine Nitrate Urine Bilirubin Urine Urobilinogen Ur Leukocyte Esterase Urine WBC (Auto) Urine RBC (Auto) Ur Squamous Epith Cells Urine Bacteria Urine Opiates Screen Urine Methadone Screen Ur Barbiturates Screen Ur Phencyclidine Scrn Ur Amphetamines Screen U Benzodiazepines Scrn U Oth Cocaine Metabols U Cannabinoids Screen Alcohol, Quantitative Blood Type Antibody Screen 01/04/18 01/04/18 01/04/18 11:43 11:43 11:43 WBC RBC Hgb Hct MCV MCH MCHC RDW Plt Count MPV Neut % (Auto) Lymph % (Auto) Leake % (Auto) Eos % (Auto) Baso % (Auto) Neut # (Auto) Lymph # (Auto) Leake # (Auto) Eos # (Auto) Baso # (Auto) PT INR APTT Sodium 141 Potassium 3.1 L Chloride 106 Carbon Dioxide 22 Anion Gap 16 BUN 4 L Creatinine 0.5 L Est GFR ( Amer) > 60 Est GFR (Non-Af Amer) > 60 POC Glucose (mg/dL) Random Glucose 106 H Hemoglobin A1c 5.0 Calcium 9.0 Total Bilirubin 0.9 AST 88 H ALT 59 H Alkaline Phosphatase 96 Troponin I < 0.0120 Total Protein 8.0 Albumin 3.9 Globulin 4.1 H Albumin/Globulin Ratio 0.9 L Triglycerides 248 H Cholesterol 210 H LDL Cholesterol Direct 92 HDL Cholesterol 81 H Urine Color Urine Clarity Urine pH Ur Specific [place] Urine Protein Urine Glucose (UA) Urine Ketones Urine Blood Urine Nitrate Urine Bilirubin Urine Urobilinogen Ur Leukocyte Esterase Urine WBC (Auto) Urine RBC (Auto) Ur Squamous Epith Cells Urine Bacteria Urine Opiates Screen Urine Methadone Screen Ur Barbiturates Screen Ur Phencyclidine Scrn Ur Amphetamines Screen U Benzodiazepines Scrn U Oth Cocaine Metabols U Cannabinoids Screen Alcohol, Quantitative < 10 Blood Type O POSITIVE Antibody Screen Negative 01/04/18 01/04/18 01/04/18 12:38 12:38 17:33 WBC RBC Hgb Hct MCV MCH MCHC RDW Plt Count MPV Neut % (Auto) Lymph % (Auto) Leake % (Auto) Eos % (Auto) Baso % (Auto) Neut # (Auto) Lymph # (Auto) Leake # (Auto) Eos # (Auto) Baso # (Auto) PT INR APTT Sodium Potassium Chloride Carbon Dioxide Anion Gap BUN Creatinine Est GFR ( Amer) Est GFR (Non-Af Amer) POC Glucose (mg/dL) 102 Random Glucose Hemoglobin A1c Calcium Total Bilirubin AST ALT Alkaline Phosphatase Troponin I Total Protein Albumin Globulin Albumin/Globulin Ratio Triglycerides Cholesterol LDL Cholesterol Direct HDL Cholesterol Urine Color Yellow Urine Clarity Clear Urine pH 5.0 Ur Specific [place] 1.031 H Urine Protein Negative Urine Glucose (UA) Normal Urine Ketones Negative Urine Blood 1+ H Urine Nitrate Positive H Urine Bilirubin Negative Urine Urobilinogen Normal Ur Leukocyte Esterase Neg Urine WBC (Auto) 2 Urine RBC (Auto) 1 Ur Squamous Epith Cells < 1 Urine Bacteria Many H Urine Opiates Screen Negative Urine Methadone Screen Negative Ur Barbiturates Screen Negative Ur Phencyclidine Scrn Negative Ur Amphetamines Screen Negative U Benzodiazepines Scrn Negative U Oth Cocaine Metabols Negative U Cannabinoids Screen Negative Alcohol, Quantitative Blood Type Antibody Screen Assessment & Plan (1) CVA (cerebral vascular accident) Assessment and Plan: Continue close observation in the ICU and check for signs of cerebral edema or herniation by monitoring pupil diameter hourly. Furthermore, I recommend the followin. Telemetry 2. MRI of the brain without contrast 3. Echocardiogram with bubble study 4. Aspirin 81 mg daily and Plavix 75 mg daily, place NGT if needed 5. Check lipids, HbA1c, B12, folate, Vitamin D, homocysteine levels, hypercoagulable work-up 6. PT/OT eval and treatment early 7. DVT Px 8. Fluids with NS at 100 mL/hr 9. Repeat CT head without contrast at 11 PM to evaluate for midline shift 10. Case management consult Thank you. Status: Acute Priority: High
[2018-01-04] MEDS: Sodium Chloride 0.9% 1,000 ML IV SCH (20:02)
[2018-01-04] MEDS ORDERED: SODIUM CHLORIDE IV ONE (23:00)
[2018-01-04] MEDS ORDERED: [UNRECOGNIZED DRUG - OTHER] IV ONE (23:00)
--- NOTE | 2018-01-04 23:43 | CT ---
EXAM: CT Head Without Intravenous Contrast CLINICAL HISTORY: 57 years old, female; Condition or disease; Other: 12 hr follow up for stroke; Additional info: Code damien - repeat 12 hours TECHNIQUE: Axial computed tomography images of the head/brain without intravenous contrast. All CT scans at this facility use one or more dose reduction techniques, viz.: automated exposure control; ma/kV adjustment per patient size (including targeted exams where dose is matched to indication; i.e. head); or iterative reconstruction technique. Coronal and sagittal reformatted images were created and reviewed. COMPARISON: No relevant prior studies available. Prior report dated the same day. FINDINGS: Brain: Decreased attenuation and loss of rushing-white matter differentiation in the right frontal, parietal and temporal lobes consistent with an acute infarct. There is mass effect upon the right lateral ventricle with mild midline shift to the left approximately 3 mm. No acute hemorrhage. Ventricles: Unremarkable. No ventriculomegaly. Bones/joints: Unremarkable. No acute fracture. Soft tissues: Unremarkable. Sinuses: Unremarkable as visualized. No acute sinusitis. Mastoid air cells: Unremarkable as visualized. No mastoid effusion. IMPRESSION: Acute infarct in the right frontal, parietal and temporal lobes. No acute hemorrhage. Midline shift to the left. Prior images have been requested for direct comparison. Comparison is made to prior report.
[2018-01-05] MEDS: Acetaminophen-Codeine 300/30 mg Tab PO PRN ×2 (00:15→09:00)
[2018-01-05] MEDS: Sodium Chloride 0.9% 1,000 ML IV SCH (05:09)
[2018-01-05 06:03] LABS: BASO % 0.3 % (0.0-2.0); EOS % 0.1 % (0.0-4.0); HEMOGLOBIN 11.8 g/dL (11.0-16.0); LYMPH # 1.6 K/uL (1.0-4.3); LYMPH % 22.2 % (20.0-40.0); MEAN CORPUSCULAR HEMOGLOBIN 32.5 pg (27.0-31.0); MEAN CORPUSCULAR HGB CONC 33.9 g/dL (33.0-37.0); MEAN PLATELET VOLUME 8.3 fL (7.2-11.7); MONO # 0.5 K/uL (0.0-0.8); MONO % 7.3 % (0.0-10.0); NEUT # 5.1 K/uL (1.8-7.0); NEUT % 70.1 % (50.0-75.0); NRBC % 0.1 % (0.0-2.0); RBC 3.64 Mil/uL (3.80-5.20); RED CELL DISTRIBUTION WIDTH 15.2 % (11.5-14.5); WHITE BLOOD COUNT 7.2 K/uL (4.8-10.8)
--- NOTE | 2018-01-05 06:47 | CP.PCM.PN ---
Subjective - Date & Time of Evaluation Date of Evaluation: 01/05/18 Time of Evaluation: 06:41 - Subjective Subjective: Ms. Bui was seen and examined at the bedside in ICU. She is alert, awake, able to verbalize place ( hospital), but unable to state time and person. She denies any headache, dizziness. She is able to follow simple commands such as field accommodation, raising her bilateral upper and lower extremities with left upper extremity flaccid, left lower extremity able to response to pain stimuli. She has left facial droop and left side neglect. She has mild dysarthria. Her pupils are unequal with right 3 mm, brisk and left eye 4 mm sluggish.She complain of headache last night, CT of the head without contrast done and showed acute infarct in the right frontal, parietal, and temporal lobes. No macute hemorrhage. Midline shift to the left. Objective - Vital Signs/Intake and Output Vital Signs (last 24 hours): Temp Pulse Resp BP Pulse Ox 98.4 F 85 14 176/98 H 98 01/05/18 06:00 01/05/18 06:00 01/05/18 06:00 01/05/18 05:11 01/05/18 06:00 Intake and Output: 01/04/18 01/05/18 18:59 06:59 Intake Total 250 985 Output Total 620 600 Balance -370 385 - Medications Medications: Current Medications Acetaminophen/Codeine Phosphate (Tylenol/Codeine 300 Mg/30 Mg) 1 ea PO Q4 PRN PRN Reason: Headache Last Admin: 01/05/18 00:15 Dose: 1 ea Aspirin (Aspirin) 325 mg PO DAILY [facility] Potassium Chloride/Dextrose/Sod Cl (Potassium Chl 40 Meq In D5-1/2ns) 1,000 mls @ 0 mls/hr IV .Q0M [facility] PRN Reason: Per Protocol Folic Acid 1 mg/ Sodium (Chloride) 100.2 mls @ 60 mls/hr IV DAILY [facility] Sodium Chloride (Sodium Chloride 0.9%) 1,000 mls @ 100 mls/hr IV .Q10H [facility] Last Admin: 01/05/18 05:09 Dose: Not Given Sodium Chloride 195.2 meq/ (Sodium Chloride) 1,000 mls @ 75 mls/hr IV ONCE ONE Stop: 01/05/18 12:19 Last Admin: 01/05/18 00:15 Dose: 75 mls/hr Lorazepam (Ativan) 1 mg IVP Q6H PRN PRN Reason: Anxiety Pantoprazole Sodium (Protonix Inj) 40 mg IVP DAILY [facility] Rosuvastatin Calcium (Crestor) 5 mg PO HS [facility] Last Admin: 01/04/18 21:11 Dose: Not Given - Labs Labs: 01/05/18 05:56 01/04/18 11:43 PT 12.2 SECONDS (9.7-12.2) 01/04/18 11:43 INR 1.1 01/04/18 11:43 APTT 26 SECONDS (21-34) 01/04/18 11:43 - Constitutional Appears: No Acute Distress - Head Exam Head Exam: NORMAL INSPECTION - Eye Exam Pupil Exam: Unequal Additional comments: pupils are unequal with right 3 mm, brisk and left eye 4 mm sluggish - Neurological Exam Neurological Exam: Alert, Awake Neuro motor strength exam: Left Upper Extremity: 0, Right Upper Extremity: 4, Left Lower Extremity: 0, Right Lower Extremity: 4 Additional comments: able to follow simple commands such as field accommodation, raising her bilateral upper and lower extremities with left upper extremity flaccid, left lower extremity able to response to pain stimuli. She has left facial droop and left side neglect. She has mild dysarthria. Her pupils are unequal with right 3 mm, brisk and left eye 4 mm sluggish Assessment and Plan (1) CVA (cerebral vascular accident) Assessment & Plan: Case discussed with Dr. Jacob, continue all current medical, physical, occupational, and speech therapies. Recommend repeat CT scan of the head today. Recommend aspirin 81 mg via NGT daily and plavix 75 mg via NGT daily. Recommend permissive HTN until 11am and control blood pressure after 11 am. Pending MRI of the brain and echocardiogram. Status: Acute
[2018-01-05 06:54] LABS: HEPATITIS B SURFACE AG Negative (NEGATIVE)
[2018-01-05 06:59] LABS: HEPATITIS A IGM NEGATIVE (NEGATIVE); HEPATITIS B CORE AB NEGATIVE (NEGATIVE)
[2018-01-05 07:11] LABS: HEPATITIS C ANTIBODY NEGATIVE (NEGATIVE)
[2018-01-05 07:32] LABS: ALB/GLOB RATIO 0.9 (1.0-2.1); ALT/SGPT 37 U/L (9-52); AST/SGOT 53 U/L (14-36); BLOOD UREA NITROGEN 3 mg/dL (7-17); CALCIUM 8.3 mg/dl (8.6-10.4); GAMMA GLUTAMYL TRANSPEPTIDASE 550 U/L (8-78); GFR AFRICAN-AMERICAN > 60; GFR NON-AFRICAN AMERICAN > 60; HDL CHOLESTEROL 77 mg/dL (30-70)
[2018-01-05 08:12] LABS: LDL CHOLESTEROL 137 mg/dL (0-129)
[2018-01-05 09:00] LABS: FOLATE > 20.0 ng/mL
[2018-01-05] MEDS ORDERED: Magnesium Sulfate 1 gm in D5W 1 GM/100 ML BAG IVPB ONE (09:28)
--- NOTE | 2018-01-05 10:15 | CT ---
PROCEDURE: CT scan brain dated 01/05/2018. HISTORY: Followup midline shift, CVA COMPARISON: Comparison made with prior study dated 01/04/2018 TECHNIQUE: Contiguous helical/transaxial computed tomography images were obtained through the head/brain without intravenous contrast. Radiation dose: Total exam DLP = 1038.09 mGy-cm. This CT exam was performed using one or more of the following dose reduction techniques: Automated exposure control, adjustment of the mA and/or kV according to patient size, and/or use of iterative reconstruction technique. . FINDINGS: HEMORRHAGE: No acute parenchymal subarachnoid nor extra-axial hemorrhage. BRAIN: Re- demonstrated are large areas of low attenuation throughout the the right cerebral hemisphere consistent with is patient's history acute MCA and the LAURI territory infarct changes. There is overlying sulcal effacement and compression of the right lateral ventricle including the right temporal horn with mild persistent [id number] midline shift. . Additionally, there are mild diffuse/confluent chronic periventricular white matter ischemic changes seen about the left frontal horn and scattered throughout the deep and subcortical white matter of the left cerebral hemisphere is well. Vascular calcifications both carotid siphons again noted. VENTRICLES: No obstructive hydrocephalus. CALVARIUM: There are no acute calvarial fractures. PARANASAL SINUSES: Mild mucosal thickening noted within the ethmoid air complex. MASTOID AIR CELLS: Unremarkable as visualized. No inflammatory changes. OTHER FINDINGS: None. IMPRESSION: Large right MCA and LAURI territory infarct changes which involve a large portion of the right cerebral hemisphere. The infarct exerts considerable mass effect with overlying sulcal effacement and compressive effects on the right lateral ventricle particularly the right temporal horn with mild [id number] midline shift. No evidence of acute intracranial hemorrhage. Mild underlying chronic white matter ischemic changes seen left cerebral hemisphere as well. No obstructive hydrocephalus.
--- NOTE | 2018-01-05 12:23 | CP.PCM.PN ---
Subjective - Date & Time of Evaluation Date of Evaluation: 01/05/18 Time of Evaluation: 09:30 - Subjective Subjective: Patient was seen and examined by me earlier in the morning. She had just returned from the 3rd CT scan of the head w/o contrast. Overnight the second CT of the head @ 23:00 showed again the the stroke however there was the development of a mid-line shift development. She was given hypertonic saline overnight and the third repeat CT of the head shows she still has the midline shift - however it does not look as severe as the second one. The patient was awake and alert. Her voice was still slurred, however not as severe as yesterday. Overnight she did have an NGT, this was removed earlier in the morning before I saw her. She still has the full left side 0/5 muscle strength as well as the left facial droop. Also still has the lateral eye deviation and tounge deviation as well. The left pupil was sluggish to light response. Nevertheless I spoke with patient as well as patient's power of disability attorney that should the swelling return or worsen - then she may need surgical intervention to relieve the pressure in the brain. I louis out a picture to help explain this to the family members at bedside. Objective - Vital Signs/Intake and Output Vital Signs (last 24 hours): Temp Pulse Resp BP Pulse Ox 98.4 F 85 14 189/105 H 99 01/05/18 06:00 01/05/18 07:11 01/05/18 07:11 01/05/18 07:11 01/05/18 07:11 Intake and Output: 01/05/18 01/05/18 06:59 18:59 Intake Total 985 75 Output Total 600 Balance 385 75 - Medications Medications: Current Medications Acetaminophen/Codeine Phosphate (Tylenol/Codeine 300 Mg/30 Mg) 1 ea PO Q4 PRN PRN Reason: Headache Last Admin: 01/05/18 09:00 Dose: 1 ea Aspirin (Aspirin Chewable) 81 mg NG DAILY [facility] Last Admin: 01/05/18 09:00 Dose: 81 mg Clopidogrel Bisulfate (Plavix) 75 mg NG DAILY [facility] Last Admin: 01/05/18 09:01 Dose: 75 mg Famotidine (Pepcid) 20 mg IVP Q12 [facility] Last Admin: 01/05/18 09:01 Dose: 20 mg Potassium Chloride/Dextrose/Sod Cl (Potassium Chl 40 Meq In D5-1/2ns) 1,000 mls @ 0 mls/hr IV .Q0M [facility] PRN Reason: Per Protocol Folic Acid 1 mg/ Sodium (Chloride) 100.2 mls @ 60 mls/hr IV DAILY [facility] Last Admin: 01/05/18 10:18 Dose: 60 mls/hr Sodium Chloride (Sodium Chloride 0.9%) 1,000 mls @ 100 mls/hr IV .Q10H [facility] Last Admin: 01/05/18 05:09 Dose: Not Given Potassium Chloride (Potassium Chloride 20 Meq/100 Ml) 20 meq in 100 mls @ 50 mls/hr IVPB Q4H [facility] Stop: 01/05/18 23:29 Last Admin: 01/05/18 10:18 Dose: 50 mls/hr Lorazepam (Ativan) 1 mg IVP Q6H PRN PRN Reason: Anxiety Rosuvastatin Calcium (Crestor) 5 mg PO HS [facility] Last Admin: 01/04/18 21:11 Dose: Not Given - Labs Labs: 01/05/18 05:56 01/05/18 05:56 PT 12.2 SECONDS (9.7-12.2) 01/04/18 11:43 INR 1.1 01/04/18 11:43 APTT 26 SECONDS (21-34) 01/04/18 11:43 - Constitutional Appears: Chronically Ill - Eye Exam Pupil Exam: Irregular, Unequal Additional comments: Pupil left side sluggish to light. There is a lateral gaze that is not easily overcome. - ENT Exam Additional comments: left tounge deviation - Cardiovascular Exam Cardiovascular Exam: REGULAR RHYTHM - GI/Abdominal Exam GI & Abdominal Exam: Soft, Normal Bowel Sounds - Neurological Exam Neurological Exam: Alert, Awake. absent: CN II-XII Intact, Reflexes Normal Neuro motor strength exam: Left Upper Extremity: 0, Right Upper Extremity: 4, Left Lower Extremity: 0, Right Lower Extremity: 4 Additional comments: As mentioned previously there is left upper and lower extremity weakness. 0/5 strength. Also no sensation at all in the upper and lower extremities. There is lateral gaze not easily overcome, the left pupil is slower to react to light There is also tounge deviation noted as well. - Psychiatric Exam Psychiatric exam: Depressed, Flat Affect Assessment and Plan - Assessment and Plan (Free Text) Assessment: Acute CVA affecting the right parietal/temporal area. 01/05/2018: The second head CT at 23:00 showed midline shifting from right to left. She was given hypertonic saline. The third CT this morning done at 8:30 again shows the the midline shift, to my very untrained eyes it looked not as severe as the second CT. Nevertheless from what I understand ICU is continuing with the hypertonic saline. I also had a very long discussion with the patient's family at bedside and told them that she may need neurosurgical intervention to relieve the pressure that was seen. Later today for MRI, echo. She had NGT removed earlier this morning for swallow eval. She is on Plavix and Crestor. This might need to be placed back in again depending on swallow eval. - CT 1:30 AM 01/04 - large hypodensity at the right brain suggestive of acute right MCA territory infarction - CT @ 12:30: there is mass affect now a 3 mm left shift - CT @ 8:00 AM showed the right MCA/LAURI area with mass effect and compreesion with right to left midline shoft - Dr. Castillo, neurology consulted help appreciated: not a TPA candidate - out of time window - NIHSS - 17 - Neuro checks Q1hour, BP checks Q15 min (will intervene if bp exceed 210/110) - Elevate head of bed to 30 degrees, aspiration precautions - will follow up repeat CT in 12 hours to observe for progression and monitor for herniation - Head/Neck CTA - right coronary artyer disease 75-80% oclusion - Patient failed nursing swallow screen in ER - NPO Heavy alcohol use 01/05/2018: Patient maybe a heavy alcohol user. She did not show signs of withdrawl this morning. Continue to monitor. Hyperlipidemia Tchol 210, Triglycerides 248, LDL 92, HDL 81 Statin to be started when patient can tolerate PO Prophylaxis Protonix 40mg IVP daily [facility]
[2018-01-05 14:30] LABS: BLOOD UREA NITROGEN 2 mg/dL (7-17); CALCIUM 7.9 mg/dl (8.6-10.4); GFR AFRICAN-AMERICAN > 60; GFR NON-AFRICAN AMERICAN > 60
--- NOTE | 2018-01-05 16:15 | MRI ---
PROCEDURE: MRI of the brain dated 01/05/2018. HISTORY: CVA COMPARISON: Comparison made with prior CT scan brain earlier same day TECHNIQUE: Multiplanar, multisequence MR images of the brain were obtained without intravenous contrast enhancement. FINDINGS: DWI: Acute infarct changes involving distal branches of the right middle cerebral artery as well as right anterior cerebral artery (which involves the portions of the right cerebral hemisphere including the right basal ganglia. Questionable early hemorrhagic conversion changes right basal ganglia evidenced by foci of dark T2 signal in these locations on gradient echo sequence with isointense T1 signal Diffuse cytotoxic edema does exert surrounding mass effect with mild overlying sulcal effacement as well as compression of the right lateral ventricle (Particularly the right frontal horn) and minimal shift of the septum pellucidum from right to left. BRAIN PARENCHYMA: Mild chronic white matter ischemic changes are also seen left cerebral hemisphere VENTRICLES: No obstructive hydrocephalus. . CRANIUM: Unremarkable ORBITS: Orbits and contents unremarkable. . PARANASAL SINUSES/MASTOIDS: Mucoperiosteal inflammatory changes both maxillary antra left greater than right and to a lesser degree ethmoid air complex. VASCULAR SYSTEM: Visualized major vascular flow voids at skull base patent. . OTHER FINDINGS: None. IMPRESSION: Acute infarct changes involving a good portion of the right cerebral hemisphere (distal branches of the right middle cerebral artery and anterior cerebral nor arteries). Questionable early hemorrhagic conversion changes right basal ganglia evidenced by foci of dark T2 signal in these locations on gradient echo sequence with isointense T1 signal. Persistent mass effect with mild midline shift HEMORRHAGE: Questionable early hemorrhagic conversion changes right basal ganglia evidenced by foci of dark T2 signal in these locations on gradient echo sequence with isointense T1 signal
[2018-01-05] MEDS ORDERED: Sodium Chloride 3% 500 ML IV ONE (17:00)
--- NOTE | 2018-01-05 18:51 | RAD ---
HISTORY: central line placed. right IJ COMPARISON: 01/04/2018. FINDINGS: LUNGS: No active pulmonary disease. PLEURA: No significant pleural effusion identified, no pneumothorax apparent. CARDIOVASCULAR: No radiographic findings to suggest acute or significant cardiovascular disease. Venous access catheter in satisfactory position. The tip is within 2 cm of the cavoatrial junction. OSSEOUS STRUCTURES: No significant abnormalities. VISUALIZED UPPER ABDOMEN: Normal. OTHER FINDINGS: None. IMPRESSION: Satisfactory position of recently placed right IJ venous access catheter. No pneumothorax.
--- NOTE | 2018-01-05 19:08 | CP.CCUPN ---
CCU Subjective - Physician Review Subjective (Free Text): 01/05/18 18:51 Patient seen and examined. Patient complaining of mild headache. Patient continues to have left sided weakness. CCU Objective - Vital Signs / Intake & Output Vital Signs (Last 4 hours): Vital Signs Temp Pulse Resp BP Pulse Ox 01/05/18 16:00 98.1 F 01/05/18 15:11 77 13 162/93 H 01/05/18 15:00 76 14 100 Intake and Output (Last 8hrs): Intake & Output 01/05/18 01/05/18 01/05/18 06:59 14:59 22:59 Intake Total 685 1000 Output Total 600 Balance 85 1000 Weight 151 lb 0.266 oz Intake: Intake, IV Amount 625 1000 Right Forearm 625 600 y line to R FA 400 Oral 0 0 Other 60 Output: Urine 600 Urine, Voided 600 Other: # Bowel Movements 1 - Physical Exam Head: Positive for: Atraumatic, Normocephalic Pupils: Positive for: PERRL Mouth: Positive for: Moist Mucous Membranes Respiratory/Chest: Positive for: Clear to Auscultation. Negative for: Wheezes, Rales, Rhonchi Cardiovascular: Positive for: Regular Rate and Rhythm, Normal S1, S2 Abdomen: Positive for: Normal Bowel Sounds. Negative for: Tenderness, Distention Upper Extremity: Positive for: Normal Inspection Lower Extremity: Positive for: Normal Inspection Neurological: Positive for: GCS=15. Negative for: Motor Func Grossly Intact ( left sided weakness upper and lower extremities) Skin: Positive for: Warm, Dry Psychiatric: Positive for: Alert, Oriented x 3 - Medications Active Medications: Active Medications Generic Name Dose Route Start Last Admin Trade Name Freq PRN Reason Stop Dose Admin Acetaminophen/Codeine Phosphate 1 ea 01/04/18 23:44 01/05/18 09:00 Tylenol/Codeine 300 Mg/30 Mg PO 1 ea Q4 PRN Administration Headache Aspirin 81 mg 01/05/18 09:00 01/05/18 09:00 Aspirin Chewable NG 81 mg DAILY REYNALDO Administration Clopidogrel Bisulfate 75 mg 01/05/18 09:00 01/05/18 09:01 Plavix NG 75 mg DAILY REYNALDO Administration Famotidine 20 mg 01/05/18 09:00 01/05/18 09:01 Pepcid IVP 20 mg Q12 REYNALDO Administration Folic Acid 1 mg/ Sodium 100.2 mls @ 60 mls/hr 01/05/18 10:00 01/05/18 10:18 Chloride IV 60 mls/hr DAILY REYNALDO Administration Potassium Chloride 20 meq in 100 mls @ 50 mls/hr 01/05/18 09:30 01/05/18 10: 18 Potassium Chloride 20 Meq/100 Ml IVPB 01/05/18 23:29 50 mls/hr Q4H REYNALDO Administration Sodium Chloride 500 mls @ 50 mls/hr 01/05/18 17:00 Hypertonic Saline 3% IV 01/06/18 02:59 ONCE ONE Lorazepam 1 mg 01/04/18 13:38 Ativan IVP Q6H PRN Anxiety Rosuvastatin Calcium 5 mg 01/04/18 22:00 01/04/18 21:11 Crestor PO Not Given HS REYNALDO - Patient Studies Lab Studies: Lab Studies 01/05/18 01/05/18 01/05/18 Range/Units 17:49 14:06 14:06 WBC (4.8-10.8) K/uL RBC (3.80-5.20) Mil/uL Hgb (11.0-16.0) g/dL Hct (34.0-47.0) % MCV (81.0-99.0) fL MCH (27.0-31.0) pg MCHC (33.0-37.0) g/dL RDW (11.5-14.5) % Plt Count (130-400) K/uL MPV (7.2-11.7) fL Neut % (Auto) (50.0-75.0) % Lymph % (Auto) (20.0-40.0) % Placer % (Auto) (0.0-10.0) % Eos % (Auto) (0.0-4.0) % Baso % (Auto) (0.0-2.0) % Neut # (Auto) (1.8-7.0) K/uL Lymph # (Auto) (1.0-4.3) K/uL Placer # (Auto) (0.0-0.8) K/uL Eos # (Auto) (0.0-0.7) K/uL Baso # (Auto) (0.0-0.2) K/uL Sodium 143 (132-148) mmol/L Potassium 2.6 L (3.6-5.2) mmol/L Chloride 111 H (98-107) mmol/L Carbon Dioxide 22 (22-30) mmol/L Anion Gap 13 (10-20) BUN 2 L (7-17) mg/dL Creatinine 0.5 L (0.7-1.2) mg/dL Est GFR ( Amer) > 60 Est GFR (Non-Af Amer) > 60 POC Glucose (mg/dL) 97 (65-110) mg/dL Random Glucose 89 (65-105) mg/dL Hemoglobin A1c (4.2-6.5) % Serum Osmolality 307 H (272-300) mosm/kg Calcium 7.9 L (8.6-10.4) mg/dl Phosphorus (2.5-4.5) mg/dL Magnesium (1.6-2.3) mg/dL Total Bilirubin (0.2-1.3) mg/dL GGT (8-78) U/L AST (14-36) U/L ALT (9-52) U/L Alkaline Phosphatase (38-126) U/L Total Protein (6.3-8.3) g/dL Albumin (3.5-5.0) g/dL Globulin (2.2-3.9) gm/dL Albumin/Globulin Ratio (1.0-2.1) Triglycerides (0-149) mg/dL Cholesterol (0-199) mg/dL LDL Cholesterol Direct (0-129) mg/dL HDL Cholesterol (30-70) mg/dL Vitamin B12 (239-931) pg/mL Folate ng/mL Homocysteine (4.7-12.6) umol/L Hepatitis A IgM Ab (NEGATIVE) Hep Bs Antigen (NEGATIVE) Hep B Core IgM Ab (NEGATIVE) Hepatitis C Antibody (NEGATIVE) 01/05/18 01/05/18 01/05/18 Range/Units 12:10 06:02 05:56 WBC (4.8-10.8) K/uL RBC (3.80-5.20) Mil/uL Hgb (11.0-16.0) g/dL Hct (34.0-47.0) % MCV (81.0-99.0) fL MCH (27.0-31.0) pg MCHC (33.0-37.0) g/dL RDW (11.5-14.5) % Plt Count (130-400) K/uL MPV (7.2-11.7) fL Neut % (Auto) (50.0-75.0) % Lymph % (Auto) (20.0-40.0) % Placer % (Auto) (0.0-10.0) % Eos % (Auto) (0.0-4.0) % Baso % (Auto) (0.0-2.0) % Neut # (Auto) (1.8-7.0) K/uL Lymph # (Auto) (1.0-4.3) K/uL Placer # (Auto) (0.0-0.8) K/uL Eos # (Auto) (0.0-0.7) K/uL Baso # (Auto) (0.0-0.2) K/uL Sodium (132-148) mmol/L Potassium (3.6-5.2) mmol/L Chloride (98-107) mmol/L Carbon Dioxide (22-30) mmol/L Anion Gap (10-20) BUN (7-17) mg/dL Creatinine (0.7-1.2) mg/dL Est GFR ( Amer) Est GFR (Non-Af Amer) POC Glucose (mg/dL) 102 110 (65-110) mg/dL Random Glucose (65-105) mg/dL Hemoglobin A1c (4.2-6.5) % Serum Osmolality 297 (272-300) mosm/kg Calcium (8.6-10.4) mg/dl Phosphorus (2.5-4.5) mg/dL Magnesium (1.6-2.3) mg/dL Total Bilirubin (0.2-1.3) mg/dL GGT (8-78) U/L AST (14-36) U/L ALT (9-52) U/L Alkaline Phosphatase (38-126) U/L Total Protein (6.3-8.3) g/dL Albumin (3.5-5.0) g/dL Globulin (2.2-3.9) gm/dL Albumin/Globulin Ratio (1.0-2.1) Triglycerides (0-149) mg/dL Cholesterol (0-199) mg/dL LDL Cholesterol Direct (0-129) mg/dL HDL Cholesterol (30-70) mg/dL Vitamin B12 (239-931) pg/mL Folate ng/mL Homocysteine (4.7-12.6) umol/L Hepatitis A IgM Ab (NEGATIVE) Hep Bs Antigen (NEGATIVE) Hep B Core IgM Ab (NEGATIVE) Hepatitis C Antibody (NEGATIVE) 01/05/18 01/05/18 01/05/18 Range/Units 05:56 05:56 05:56 WBC (4.8-10.8) K/uL RBC (3.80-5.20) Mil/uL Hgb (11.0-16.0) g/dL Hct (34.0-47.0) % MCV (81.0-99.0) fL MCH (27.0-31.0) pg MCHC (33.0-37.0) g/dL RDW (11.5-14.5) % Plt Count (130-400) K/uL MPV (7.2-11.7) fL Neut % (Auto) (50.0-75.0) % Lymph % (Auto) (20.0-40.0) % Placer % (Auto) (0.0-10.0) % Eos % (Auto) (0.0-4.0) % Baso % (Auto) (0.0-2.0) % Neut # (Auto) (1.8-7.0) K/uL Lymph # (Auto) (1.0-4.3) K/uL Placer # (Auto) (0.0-0.8) K/uL Eos # (Auto) (0.0-0.7) K/uL Baso # (Auto) (0.0-0.2) K/uL Sodium 142 (132-148) mmol/L Potassium 2.8 L (3.6-5.2) mmol/L Chloride 111 H (98-107) mmol/L Carbon Dioxide 21 L (22-30) mmol/L Anion Gap 13 (10-20) BUN 3 L (7-17) mg/dL Creatinine 0.5 L (0.7-1.2) mg/dL Est GFR ( Amer) > 60 Est GFR (Non-Af Amer) > 60 POC Glucose (mg/dL) (65-110) mg/dL Random Glucose 95 (65-105) mg/dL Hemoglobin A1c 4.9 (4.2-6.5) % Serum Osmolality (272-300) mosm/kg Calcium 8.3 L (8.6-10.4) mg/dl Phosphorus 3.9 (2.5-4.5) mg/dL Magnesium 1.7 (1.6-2.3) mg/dL Total Bilirubin 1.1 (0.2-1.3) mg/dL GGT 550 H (8-78) U/L AST 53 H D (14-36) U/L ALT 37 (9-52) U/L Alkaline Phosphatase 73 (38-126) U/L Total Protein 6.6 (6.3-8.3) g/dL Albumin 3.0 L D (3.5-5.0) g/dL Globulin 3.5 (2.2-3.9) gm/dL Albumin/Globulin Ratio 0.9 L (1.0-2.1) Triglycerides 116 D (0-149) mg/dL Cholesterol 215 H (0-199) mg/dL LDL Cholesterol Direct 137 H (0-129) mg/dL HDL Cholesterol 77 H (30-70) mg/dL Vitamin B12 587 (239-931) pg/mL Folate > 20.0 ng/mL Homocysteine 33.1 H (4.7-12.6) umol/L Hepatitis A IgM Ab Negative (NEGATIVE) Hep Bs Antigen Negative (NEGATIVE) Hep B Core IgM Ab Negative (NEGATIVE) Hepatitis C Antibody Negative (NEGATIVE) 01/05/18 01/04/18 Range/Units 05:56 23:36 WBC 7.2 (4.8-10.8) K/uL RBC 3.64 L (3.80-5.20) Mil/uL Hgb 11.8 (11.0-16.0) g/dL Hct 34.9 (34.0-47.0) % MCV 96.0 (81.0-99.0) fL MCH 32.5 H (27.0-31.0) pg MCHC 33.9 (33.0-37.0) g/dL RDW 15.2 H (11.5-14.5) % Plt Count 246 (130-400) K/uL MPV 8.3 (7.2-11.7) fL Neut % (Auto) 70.1 (50.0-75.0) % Lymph % (Auto) 22.2 (20.0-40.0) % Placer % (Auto) 7.3 (0.0-10.0) % Eos % (Auto) 0.1 (0.0-4.0) % Baso % (Auto) 0.3 (0.0-2.0) % Neut # (Auto) 5.1 (1.8-7.0) K/uL Lymph # (Auto) 1.6 (1.0-4.3) K/uL Placer # (Auto) 0.5 (0.0-0.8) K/uL Eos # (Auto) 0.0 (0.0-0.7) K/uL Baso # (Auto) 0.0 (0.0-0.2) K/uL Sodium (132-148) mmol/L Potassium (3.6-5.2) mmol/L Chloride (98-107) mmol/L Carbon Dioxide (22-30) mmol/L Anion Gap (10-20) BUN (7-17) mg/dL Creatinine (0.7-1.2) mg/dL Est GFR ( Amer) Est GFR (Non-Af Amer) POC Glucose (mg/dL) 100 (65-110) mg/dL Random Glucose (65-105) mg/dL Hemoglobin A1c (4.2-6.5) % Serum Osmolality (272-300) mosm/kg Calcium (8.6-10.4) mg/dl Phosphorus (2.5-4.5) mg/dL Magnesium (1.6-2.3) mg/dL Total Bilirubin (0.2-1.3) mg/dL GGT (8-78) U/L AST (14-36) U/L ALT (9-52) U/L Alkaline Phosphatase (38-126) U/L Total Protein (6.3-8.3) g/dL Albumin (3.5-5.0) g/dL Globulin (2.2-3.9) gm/dL Albumin/Globulin Ratio (1.0-2.1) Triglycerides (0-149) mg/dL Cholesterol (0-199) mg/dL LDL Cholesterol Direct (0-129) mg/dL HDL Cholesterol (30-70) mg/dL Vitamin B12 (239-931) pg/mL Folate ng/mL Homocysteine (4.7-12.6) umol/L Hepatitis A IgM Ab (NEGATIVE) Hep Bs Antigen (NEGATIVE) Hep B Core IgM Ab (NEGATIVE) Hepatitis C Antibody (NEGATIVE) Laboratory Results - last 24 hr 01/04/18 01/05/18 01/05/18 23:36 05:56 05:56 WBC 7.2 RBC 3.64 L Hgb 11.8 Hct 34.9 MCV 96.0 MCH 32.5 H MCHC 33.9 RDW 15.2 H Plt Count 246 MPV 8.3 Neut % (Auto) 70.1 Lymph % (Auto) 22.2 Placer % (Auto) 7.3 Eos % (Auto) 0.1 Baso % (Auto) 0.3 Neut # (Auto) 5.1 Lymph # (Auto) 1.6 Placer # (Auto) 0.5 Eos # (Auto) 0.0 Baso # (Auto) 0.0 Sodium 142 Potassium 2.8 L Chloride 111 H Carbon Dioxide 21 L Anion Gap 13 BUN 3 L Creatinine 0.5 L Est GFR ( Amer) > 60 Est GFR (Non-Af Amer) > 60 POC Glucose (mg/dL) 100 Random Glucose 95 Hemoglobin A1c Serum Osmolality Calcium 8.3 L Phosphorus 3.9 Magnesium 1.7 Total Bilirubin 1.1 GGT 550 H AST 53 H D ALT 37 Alkaline Phosphatase 73 Total Protein 6.6 Albumin 3.0 L D Globulin 3.5 Albumin/Globulin Ratio 0.9 L Triglycerides 116 D Cholesterol 215 H LDL Cholesterol Direct 137 H HDL Cholesterol 77 H Vitamin B12 587 Folate > 20.0 Homocysteine 33.1 H Hepatitis A IgM Ab Hep Bs Antigen Hep B Core IgM Ab Hepatitis C Antibody 01/05/18 01/05/18 01/05/18 05:56 05:56 05:56 WBC RBC Hgb Hct MCV MCH MCHC RDW Plt Count MPV Neut % (Auto) Lymph % (Auto) Placer % (Auto) Eos % (Auto) Baso % (Auto) Neut # (Auto) Lymph # (Auto) Placer # (Auto) Eos # (Auto) Baso # (Auto) Sodium Potassium Chloride Carbon Dioxide Anion Gap BUN Creatinine Est GFR ( Amer) Est GFR (Non-Af Amer) POC Glucose (mg/dL) Random Glucose Hemoglobin A1c 4.9 Serum Osmolality 297 Calcium Phosphorus Magnesium Total Bilirubin GGT AST ALT Alkaline Phosphatase Total Protein Albumin Globulin Albumin/Globulin Ratio Triglycerides Cholesterol LDL Cholesterol Direct HDL Cholesterol Vitamin B12 Folate Homocysteine Hepatitis A IgM Ab Negative Hep Bs Antigen Negative Hep B Core IgM Ab Negative Hepatitis C Antibody Negative 01/05/18 01/05/18 01/05/18 06:02 12:10 14:06 WBC RBC Hgb Hct MCV MCH MCHC RDW Plt Count MPV Neut % (Auto) Lymph % (Auto) Placer % (Auto) Eos % (Auto) Baso % (Auto) Neut # (Auto) Lymph # (Auto) Placer # (Auto) Eos # (Auto) Baso # (Auto) Sodium 143 Potassium 2.6 L Chloride 111 H Carbon Dioxide 22 Anion Gap 13 BUN 2 L Creatinine 0.5 L Est GFR ( Amer) > 60 Est GFR (Non-Af Amer) > 60 POC Glucose (mg/dL) 110 102 Random Glucose 89 Hemoglobin A1c Serum Osmolality Calcium 7.9 L Phosphorus Magnesium Total Bilirubin GGT AST ALT Alkaline Phosphatase Total Protein Albumin Globulin Albumin/Globulin Ratio Triglycerides Cholesterol LDL Cholesterol Direct HDL Cholesterol Vitamin B12 Folate Homocysteine Hepatitis A IgM Ab Hep Bs Antigen Hep B Core IgM Ab Hepatitis C Antibody 01/05/18 01/05/18 14:06 17:49 WBC RBC Hgb Hct MCV MCH MCHC RDW Plt Count MPV Neut % (Auto) Lymph % (Auto) Placer % (Auto) Eos % (Auto) Baso % (Auto) Neut # (Auto) Lymph # (Auto) Placer # (Auto) Eos # (Auto) Baso # (Auto) Sodium Potassium Chloride Carbon Dioxide Anion Gap BUN Creatinine Est GFR ( Amer) Est GFR (Non-Af Amer) POC Glucose (mg/dL) 97 Random Glucose Hemoglobin A1c Serum Osmolality 307 H Calcium Phosphorus Magnesium Total Bilirubin GGT AST ALT Alkaline Phosphatase Total Protein Albumin Globulin Albumin/Globulin Ratio Triglycerides Cholesterol LDL Cholesterol Direct HDL Cholesterol Vitamin B12 Folate Homocysteine Hepatitis A IgM Ab Hep Bs Antigen Hep B Core IgM Ab Hepatitis C Antibody Fingerstick Blood Sugar Results: 110 Critical Care Progress Note - Nutrition Nutrition: Nutrition Category Date Time Status NPO Diet [DIET] Diets 01/04/18 Dinner Active Assessment/Plan - Assessment and Plan (Free Text) Assessment: This is a 57 year old female with no significant PMHx who presented with left sided weakness. Patient has large MCA and LAURI territory infarct. Neuro Neurology consulted Hypertonic saline running Per neuro keep sodium between 145-150 and serum osmolality below 320 Recheck Q12H Cardio May gradually reduce the BP Crestor 5 HS Pulm saturating well GI NPO diet Pepcid 20 mg IV BID Heme/onc f/u bilateral LE dopplers Prophylaxis Pepcid not currently on VTE due to risk of bleeding Right IJ TLC placed Discussed with Dr. Lebron
--- NOTE | 2018-01-05 19:09 | PCM.PROC ---
Procedures Attestation:: I certify that I have explained the specified Operation(s) or Procedure(s), risks, benefits and reasonable alternatives to the Patient and/or other person responsible. The opportunity was given to ask questions and all questions answered - Central Line Placement Right Internal Jugular Triple Lumen Catheter Aseptic technique was employed throughout the procedure: Hand Hygiene done prior to procedure, Full sterile barriers (mask, hair cover, sterile gown, sterile gloves), Full body sterile drape, Chloraprep Antiseptic: 30 second prep for IJ or SC sites Central Line Prep: Chlorhexidine-Alcohol Combination Local Anesthesia Used: Lidocaine 2% Ultrasound Used for Placement: Yes Central Line Lumen Inserted: triple Post Procedure: Sutured in Place, Good Blood Return, All Ports Aspirated, Flushed, Capped, Sterile Dressing Applied Secured by: Suture Post procedure dressing: Chlorhexidine disc (Biopatch) Post Procedure X-Ray: Yes Patient Tolerated Procedure: Well Immediate Complications: None
[2018-01-05] MEDS ORDERED: Labetalol 25mg/5ml Syringe IVP STA (21:06)
[2018-01-05] MEDS ORDERED: Nitroglycerin 2% Ointment Foilpak UD TOP ONE (23:30)
[2018-01-06] MEDS ORDERED: Morphine 4 MG/ML VIAL IVP STA (00:14)
--- NOTE | 2018-01-06 01:22 | CARD ---
APPROVED REPORT EXAM: Two-dimensional and M-mode echocardiogram with Doppler and color Doppler. Other Information Quality : GoodRhythm : INDICATION Congestive Heart Failure RISK FACTORS Hypertension 2D DIMENSIONS IVSd0.8 (0.7-1.1cm)LVDd4.2 (3.9-5.9cm) PWd0.9 (0.7-1.1cm)LVDs1.9 (2.5-4.0cm) FS (%) 55.5 %LVEF (%)70.0 (>50%) M-Mode DIMENSIONS Left Atrium (MM)2.44 (2.5-4.0cm)Aortic Root2.84 (2.2-3.7cm) Aortic Cusp Exc.1.64 (1.5-2.0cm) Mitral Valve MV E Ugknfzrd69.4cm/sMV A Eayforhp96.0cm/sE/A ratio1.0 TDI E/Lateral E'0.0E/Medial E'0.0 Tricuspid Valve TR Peak [id number]/sTR Peak Gr.21mmHg LEFT VENTRICLE The left ventricle is normal size. There is normal left ventricular wall thickness. Left ventricle systolic function is normal. The Ejection Fraction is 65-70%. There is normal LV segmental wall motion. The left ventricular diastolic function is normal. There is no ventricular septal defect visualized. RIGHT VENTRICLE The right ventricle is normal size. The right ventricular systolic function is normal. ATRIA The left atrium size is normal. The right atrium size is normal. AORTIC VALVE The aortic valve is mildly sclerotic. The aortic valve is tri-cuspid. No aortic regurgitation is present. There is no aortic valvular stenosis. MITRAL VALVE The mitral valve is normal in structure. There is no evidence of mitral valve prolapse. There is no mitral valve regurgitation noted. TRICUSPID VALVE The tricuspid valve is normal in structure. There is no tricuspid valve regurgitation noted. PULMONIC VALVE The pulmonic valve is not well visualized. There is no pulmonic valvular regurgitation. GREAT VESSELS The aortic root is normal in size. The ascending aorta is normal in size. The IVC is normal in size and collapses >50% with inspiration. PERICARDIAL EFFUSION There is no pericardial effusion. <Conclusion> Left ventricle systolic function is normal. The Ejection Fraction is 65-70%. There is normal LV segmental wall motion.
--- NOTE | 2018-01-06 02:03 | CARD ---
APPROVED REPORT EKG Measurement Heart [id number] <Conclusion> Normal sinus rhythm Normal ECG
[2018-01-06 06:20] LABS: BASO % 0.5 % (0.0-2.0); EOS % 0.4 % (0.0-4.0); HEMOGLOBIN 10.6 g/dL (11.0-16.0); LYMPH # 1.2 K/uL (1.0-4.3); LYMPH % 19.3 % (20.0-40.0); MEAN CELL VOLUME 97.7 fL (81.0-99.0); MEAN CORPUSCULAR HEMOGLOBIN 32.9 pg (27.0-31.0); MEAN CORPUSCULAR HGB CONC 33.7 g/dL (33.0-37.0); MEAN PLATELET VOLUME 8.5 fL (7.2-11.7); MONO # 0.5 K/uL (0.0-0.8); MONO % 8.4 % (0.0-10.0); NEUT # 4.5 K/uL (1.8-7.0); NEUT % 71.4 % (50.0-75.0); NRBC % 0.1 % (0.0-2.0); RBC 3.22 Mil/uL (3.80-5.20); RED CELL DISTRIBUTION WIDTH 15.3 % (11.5-14.5); WHITE BLOOD COUNT 6.3 K/uL (4.8-10.8)
[2018-01-06 06:40] LABS: ALB/GLOB RATIO 0.8 (1.0-2.1); ALBUMIN 2.9 g/dL (3.5-5.0); ALT/SGPT 29 U/L (9-52); AST/SGOT 40 U/L (14-36); BLOOD UREA NITROGEN 2 mg/dL (7-17); CALCIUM 8.6 mg/dl (8.6-10.4); GFR AFRICAN-AMERICAN > 60; GFR NON-AFRICAN AMERICAN > 60
[2018-01-06] MEDS ORDERED: Sodium Chloride 3% 500 ML IV ONE ×3 (07:30→19:30)
[2018-01-06] MEDS: Acetaminophen-Codeine 300/30 mg Tab PO PRN ×2 (10:57→17:47)
--- NOTE | 2018-01-06 11:23 | CP.CCUPN ---
<Hesham Fragoso - Last Filed: 01/06/18 15:26> CCU Subjective - Physician Review Subjective (Free Text): 01/05/18 18:51 Patient seen and examined. Patient complaining of mild headache. Patient continues to have left sided weakness. 01/06/18 11:17 Patient seen and examined. Patient continues to complain of headache. Patient is also complaining of neck discomfort as well. She continues to have left sided weakness, although she has recovered some sensation on the left side now. CCU Objective - Vital Signs / Intake & Output Vital Signs (Last 4 hours): Vital Signs Temp Pulse Resp BP Pulse Ox 01/06/18 10:11 87 15 196/106 H 100 01/06/18 10:00 68 14 97 01/06/18 09:11 71 15 178/101 H 98 01/06/18 09:00 83 13 100 01/06/18 08:11 99 H 15 189/111 H 100 01/06/18 08:00 98.5 F 72 13 100 Intake and Output (Last 8hrs): Intake & Output 01/05/18 01/06/18 01/06/18 22:59 06:59 14:59 Intake Total 450 400 50 Output Total 700 900 0 Balance -250 -500 50 Weight 156 lb Intake: Intake, IV Amount 450 400 50 Right Forearm 100 Right Internal Jugular 250 400 50 y line to R FA 100 Output: Urine 700 900 Urine, Voided 700 900 Stool 0 0 0 - Physical Exam Head: Positive for: Atraumatic, Normocephalic Pupils: Positive for: PERRL Mouth: Positive for: Moist Mucous Membranes Respiratory/Chest: Positive for: Clear to Auscultation. Negative for: Wheezes, Rales, Rhonchi Cardiovascular: Positive for: Regular Rate and Rhythm, Normal S1, S2 Abdomen: Positive for: Normal Bowel Sounds. Negative for: Tenderness, Distention Upper Extremity: Positive for: Normal Inspection Lower Extremity: Positive for: Normal Inspection Neurological: Positive for: GCS=15. Negative for: Motor Func Grossly Intact ( left sided weakness upper and lower extremities) Skin: Positive for: Warm, Dry Psychiatric: Positive for: Alert, Oriented x 3 - Medications Active Medications: Active Medications Generic Name Dose Route Start Last Admin Trade Name Freq PRN Reason Stop Dose Admin Acetaminophen/Codeine Phosphate 1 ea 01/04/18 23:44 01/06/18 10:57 Tylenol/Codeine 300 Mg/30 Mg PO 1 ea Q4 PRN Administration Headache Aspirin 81 mg 01/05/18 09:00 01/06/18 09:49 Aspirin Chewable NG 81 mg DAILY REYNALDO Administration Clopidogrel Bisulfate 75 mg 01/05/18 09:00 01/06/18 09:49 Plavix NG 75 mg DAILY REYNALDO Administration Famotidine 20 mg 01/05/18 09:00 01/06/18 09:57 Pepcid IVP 20 mg Q12 REYNALDO Administration Hydralazine HCl 10 mg 01/06/18 11:05 Apresoline IVP 01/06/18 11:06 STAT STA Folic Acid 1 mg/ Sodium 100.2 mls @ 60 mls/hr 01/05/18 10:00 01/06/18 09:47 Chloride IV 60 mls/hr DAILY REYNALDO Administration Sodium Chloride 500 mls @ 50 mls/hr 01/06/18 07:30 01/06/18 09:59 Hypertonic Saline 3% IV 01/06/18 17:29 50 mls/hr .Q10H ONE Administration Lorazepam 1 mg 01/04/18 13:38 01/05/18 15:45 Ativan IVP 1 mg Q6H PRN Administration Anxiety Rosuvastatin Calcium 5 mg 01/04/18 22:00 01/05/18 23:17 Crestor PO 5 mg HS REYNALDO Administration - Patient Studies Lab Studies: Microbiology Studies 01/04/18 Unknown MRSA Culture (Admit) - Final Naris MRSA NOT DETECTED Lab Studies 01/06/18 01/06/18 01/06/18 Range/Units 06:14 06:12 06:04 WBC 6.3 (4.8-10.8) K/uL RBC 3.22 L (3.80-5.20) Mil/uL Hgb 10.6 L (11.0-16.0) g/dL Hct 31.4 L (34.0-47.0) % MCV 97.7 (81.0-99.0) fL MCH 32.9 H (27.0-31.0) pg MCHC 33.7 (33.0-37.0) g/dL RDW 15.3 H (11.5-14.5) % Plt Count 202 (130-400) K/uL MPV 8.5 (7.2-11.7) fL Neut % (Auto) 71.4 (50.0-75.0) % Lymph % (Auto) 19.3 L (20.0-40.0) % Ocean % (Auto) 8.4 (0.0-10.0) % Eos % (Auto) 0.4 (0.0-4.0) % Baso % (Auto) 0.5 (0.0-2.0) % Neut # (Auto) 4.5 (1.8-7.0) K/uL Lymph # (Auto) 1.2 (1.0-4.3) K/uL Ocean # (Auto) 0.5 (0.0-0.8) K/uL Eos # (Auto) 0.0 (0.0-0.7) K/uL Baso # (Auto) 0.0 (0.0-0.2) K/uL Sodium 142 (132-148) mmol/L Potassium 3.8 (3.6-5.2) mmol/L Chloride 112 H (98-107) mmol/L Carbon Dioxide 24 (22-30) mmol/L Anion Gap 10 (10-20) BUN 2 L (7-17) mg/dL Creatinine 0.5 L (0.7-1.2) mg/dL Est GFR ( Amer) > 60 Est GFR (Non-Af Amer) > 60 POC Glucose (mg/dL) 104 (65-110) mg/dL Random Glucose 103 (65-105) mg/dL Serum Osmolality (272-300) mosm/kg Calcium 8.6 (8.6-10.4) mg/dl Phosphorus 3.4 (2.5-4.5) mg/dL Magnesium 1.8 (1.6-2.3) mg/dL Total Bilirubin 0.7 (0.2-1.3) mg/dL AST 40 H D (14-36) U/L ALT 29 (9-52) U/L Alkaline Phosphatase 69 (38-126) U/L Total Protein 6.3 (6.3-8.3) g/dL Albumin 2.9 L (3.5-5.0) g/dL Globulin 3.4 (2.2-3.9) gm/dL Albumin/Globulin Ratio 0.8 L (1.0-2.1) 01/06/18 01/06/18 01/05/18 Range/Units 03:36 00:30 21:03 WBC (4.8-10.8) K/uL RBC (3.80-5.20) Mil/uL Hgb (11.0-16.0) g/dL Hct (34.0-47.0) % MCV (81.0-99.0) fL MCH (27.0-31.0) pg MCHC (33.0-37.0) g/dL RDW (11.5-14.5) % Plt Count (130-400) K/uL MPV (7.2-11.7) fL Neut % (Auto) (50.0-75.0) % Lymph % (Auto) (20.0-40.0) % Ocean % (Auto) (0.0-10.0) % Eos % (Auto) (0.0-4.0) % Baso % (Auto) (0.0-2.0) % Neut # (Auto) (1.8-7.0) K/uL Lymph # (Auto) (1.0-4.3) K/uL Ocean # (Auto) (0.0-0.8) K/uL Eos # (Auto) (0.0-0.7) K/uL Baso # (Auto) (0.0-0.2) K/uL Sodium (132-148) mmol/L Potassium (3.6-5.2) mmol/L Chloride (98-107) mmol/L Carbon Dioxide (22-30) mmol/L Anion Gap (10-20) BUN (7-17) mg/dL Creatinine (0.7-1.2) mg/dL Est GFR ( Amer) Est GFR (Non-Af Amer) POC Glucose (mg/dL) 108 (65-110) mg/dL Random Glucose (65-105) mg/dL Serum Osmolality 304 H 296 (272-300) mosm/kg Calcium (8.6-10.4) mg/dl Phosphorus (2.5-4.5) mg/dL Magnesium (1.6-2.3) mg/dL Total Bilirubin (0.2-1.3) mg/dL AST (14-36) U/L ALT (9-52) U/L Alkaline Phosphatase (38-126) U/L Total Protein (6.3-8.3) g/dL Albumin (3.5-5.0) g/dL Globulin (2.2-3.9) gm/dL Albumin/Globulin Ratio (1.0-2.1) 01/05/18 01/05/18 01/05/18 Range/Units 17:49 14:06 14:06 WBC (4.8-10.8) K/uL RBC (3.80-5.20) Mil/uL Hgb (11.0-16.0) g/dL Hct (34.0-47.0) % MCV (81.0-99.0) fL MCH (27.0-31.0) pg MCHC (33.0-37.0) g/dL RDW (11.5-14.5) % Plt Count (130-400) K/uL MPV (7.2-11.7) fL Neut % (Auto) (50.0-75.0) % Lymph % (Auto) (20.0-40.0) % Ocean % (Auto) (0.0-10.0) % Eos % (Auto) (0.0-4.0) % Baso % (Auto) (0.0-2.0) % Neut # (Auto) (1.8-7.0) K/uL Lymph # (Auto) (1.0-4.3) K/uL Ocean # (Auto) (0.0-0.8) K/uL Eos # (Auto) (0.0-0.7) K/uL Baso # (Auto) (0.0-0.2) K/uL Sodium 143 (132-148) mmol/L Potassium 2.6 L (3.6-5.2) mmol/L Chloride 111 H (98-107) mmol/L Carbon Dioxide 22 (22-30) mmol/L Anion Gap 13 (10-20) BUN 2 L (7-17) mg/dL Creatinine 0.5 L (0.7-1.2) mg/dL Est GFR ( Amer) > 60 Est GFR (Non-Af Amer) > 60 POC Glucose (mg/dL) 97 (65-110) mg/dL Random Glucose 89 (65-105) mg/dL Serum Osmolality 307 H (272-300) mosm/kg Calcium 7.9 L (8.6-10.4) mg/dl Phosphorus (2.5-4.5) mg/dL Magnesium (1.6-2.3) mg/dL Total Bilirubin (0.2-1.3) mg/dL AST (14-36) U/L ALT (9-52) U/L Alkaline Phosphatase (38-126) U/L Total Protein (6.3-8.3) g/dL Albumin (3.5-5.0) g/dL Globulin (2.2-3.9) gm/dL Albumin/Globulin Ratio (1.0-2.1) / Range/Units 12:10 WBC (4.8-10.8) K/uL RBC (3.80-5.20) Mil/uL Hgb (11.0-16.0) g/dL Hct (34.0-47.0) % MCV (81.0-99.0) fL MCH (27.0-31.0) pg MCHC (33.0-37.0) g/dL RDW (11.5-14.5) % Plt Count (130-400) K/uL MPV (7.2-11.7) fL Neut % (Auto) (50.0-75.0) % Lymph % (Auto) (20.0-40.0) % Ocean % (Auto) (0.0-10.0) % Eos % (Auto) (0.0-4.0) % Baso % (Auto) (0.0-2.0) % Neut # (Auto) (1.8-7.0) K/uL Lymph # (Auto) (1.0-4.3) K/uL Ocean # (Auto) (0.0-0.8) K/uL Eos # (Auto) (0.0-0.7) K/uL Baso # (Auto) (0.0-0.2) K/uL Sodium (132-148) mmol/L Potassium (3.6-5.2) mmol/L Chloride (98-107) mmol/L Carbon Dioxide (22-30) mmol/L Anion Gap (10-20) BUN (7-17) mg/dL Creatinine (0.7-1.2) mg/dL Est GFR ( Amer) Est GFR (Non-Af Amer) POC Glucose (mg/dL) 102 (65-110) mg/dL Random Glucose (65-105) mg/dL Serum Osmolality (272-300) mosm/kg Calcium (8.6-10.4) mg/dl Phosphorus (2.5-4.5) mg/dL Magnesium (1.6-2.3) mg/dL Total Bilirubin (0.2-1.3) mg/dL AST (14-36) U/L ALT (9-52) U/L Alkaline Phosphatase (38-126) U/L Total Protein (6.3-8.3) g/dL Albumin (3.5-5.0) g/dL Globulin (2.2-3.9) gm/dL Albumin/Globulin Ratio (1.0-2.1) Laboratory Results - last 24 hr 01/05/18 01/05/18 01/05/18 12:10 14:06 14:06 WBC RBC Hgb Hct MCV MCH MCHC RDW Plt Count MPV Neut % (Auto) Lymph % (Auto) Ocean % (Auto) Eos % (Auto) Baso % (Auto) Neut # (Auto) Lymph # (Auto) Ocean # (Auto) Eos # (Auto) Baso # (Auto) Sodium 143 Potassium 2.6 L Chloride 111 H Carbon Dioxide 22 Anion Gap 13 BUN 2 L Creatinine 0.5 L Est GFR ( Amer) > 60 Est GFR (Non-Af Amer) > 60 POC Glucose (mg/dL) 102 Random Glucose 89 Serum Osmolality 307 H Calcium 7.9 L Phosphorus Magnesium Total Bilirubin AST ALT Alkaline Phosphatase Total Protein Albumin Globulin Albumin/Globulin Ratio 01/05/18 01/05/18 01/06/18 17:49 21:03 00:30 WBC RBC Hgb Hct MCV MCH MCHC RDW Plt Count MPV Neut % (Auto) Lymph % (Auto) Ocean % (Auto) Eos % (Auto) Baso % (Auto) Neut # (Auto) Lymph # (Auto) Ocean # (Auto) Eos # (Auto) Baso # (Auto) Sodium Potassium Chloride Carbon Dioxide Anion Gap BUN Creatinine Est GFR ( Amer) Est GFR (Non-Af Amer) POC Glucose (mg/dL) 97 108 Random Glucose Serum Osmolality 296 Calcium Phosphorus Magnesium Total Bilirubin AST ALT Alkaline Phosphatase Total Protein Albumin Globulin Albumin/Globulin Ratio 01/06/18 01/06/18 01/06/18 03:36 06:04 06:12 WBC 6.3 RBC 3.22 L Hgb 10.6 L Hct 31.4 L MCV 97.7 MCH 32.9 H MCHC 33.7 RDW 15.3 H Plt Count 202 MPV 8.5 Neut % (Auto) 71.4 Lymph % (Auto) 19.3 L Ocean % (Auto) 8.4 Eos % (Auto) 0.4 Baso % (Auto) 0.5 Neut # (Auto) 4.5 Lymph # (Auto) 1.2 Ocean # (Auto) 0.5 Eos # (Auto) 0.0 Baso # (Auto) 0.0 Sodium Potassium Chloride Carbon Dioxide Anion Gap BUN Creatinine Est GFR ( Amer) Est GFR (Non-Af Amer) POC Glucose (mg/dL) 104 Random Glucose Serum Osmolality 304 H Calcium Phosphorus Magnesium Total Bilirubin AST ALT Alkaline Phosphatase Total Protein Albumin Globulin Albumin/Globulin Ratio 01/06/18 06:14 WBC RBC Hgb Hct MCV MCH MCHC RDW Plt Count MPV Neut % (Auto) Lymph % (Auto) Ocean % (Auto) Eos % (Auto) Baso % (Auto) Neut # (Auto) Lymph # (Auto) Ocean # (Auto) Eos # (Auto) Baso # (Auto) Sodium 142 Potassium 3.8 Chloride 112 H Carbon Dioxide 24 Anion Gap 10 BUN 2 L Creatinine 0.5 L Est GFR ( Amer) > 60 Est GFR (Non-Af Amer) > 60 POC Glucose (mg/dL) Random Glucose 103 Serum Osmolality Calcium 8.6 Phosphorus 3.4 Magnesium 1.8 Total Bilirubin 0.7 AST 40 H D ALT 29 Alkaline Phosphatase 69 Total Protein 6.3 Albumin 2.9 L Globulin 3.4 Albumin/Globulin Ratio 0.8 L Fingerstick Blood Sugar Results: 104 Critical Care Progress Note - Nutrition Nutrition: Nutrition Category Date Time Status NPO Diet [DIET] Diets 01/04/18 Dinner Active Assessment/Plan - Assessment and Plan (Free Text) Assessment: This is a 57 year old female with no significant PMHx who presented with left sided weakness. 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 There are early signs of hemorrhagic conversion per MRI. Neuro Neurology consulted Hypertonic saline running Per neuro keep sodium between 145-150 and serum osmolality below 320 Recheck Q12H f/u further neurology recommendations Cardio May gradually reduce the BP Crestor 5 HS Pulm saturating well GI NPO diet Pepcid 20 mg IV BID Heme/onc f/u bilateral LE dopplers Prophylaxis Pepcid not currently on VTE due to risk of bleeding Right IJ TLC placed on 01/05/[address] Sanchez <Andrade Sanchez S - Last Filed: 01/06/18 16:54> CCU Objective - Vital Signs / Intake & Output Vital Signs (Last 4 hours): Vital Signs Temp Pulse Resp BP Pulse Ox 01/06/18 16:11 91 H 16 165/107 H 01/06/18 16:00 97.6 F 105 H 23 01/06/18 15:12 96 H 16 188/109 H 01/06/18 15:00 95 H 15 84 L 01/06/18 14:47 100 H 15 162/114 H 100 01/06/18 14:20 94 H 14 184/107 H 99 01/06/18 14:11 101 H 15 192/109 H 100 01/06/18 14:00 80 13 100 01/06/18 13:12 95 H 13 156/90 H 01/06/18 13:00 80 13 98 Intake and Output (Last 8hrs): Intake & Output 01/06/18 01/06/18 01/06/18 06:59 14:59 22:59 Intake Total 400 350 100 Output Total 900 0 Balance -500 350 100 Weight 156 lb Intake: Intake, IV Amount 400 350 100 Right Internal Jugular 400 350 100 Output: Urine 900 Urine, Voided 900 Stool 0 0 - Medications Active Medications: Active Medications Generic Name Dose Route Start Last Admin Trade Name Freq PRN Reason Stop Dose Admin Acetaminophen/Codeine Phosphate 1 ea 01/04/18 23:44 01/06/18 10:57 Tylenol/Codeine 300 Mg/30 Mg PO 1 ea Q4 PRN Administration Headache Aspirin 81 mg 01/05/18 09:00 01/06/18 09:49 Aspirin Chewable NG 81 mg DAILY REYNALDO Administration Clopidogrel Bisulfate 75 mg 01/05/18 09:00 01/06/18 09:49 Plavix NG 75 mg DAILY REYNALDO Administration Famotidine 20 mg 01/05/18 09:00 01/06/18 09:57 Pepcid IVP 20 mg Q12 REYNALDO Administration Folic Acid 1 mg/ Sodium 100.2 mls @ 60 mls/hr 01/05/18 10:00 01/06/18 09:47 Chloride IV 60 mls/hr DAILY REYNALDO Administration Sodium Chloride 500 mls @ 50 mls/hr 01/06/18 07:30 01/06/18 09:59 Hypertonic Saline 3% IV 01/06/18 17:29 50 mls/hr .Q10H ONE Administration Lorazepam 1 mg 01/04/18 13:38 01/05/18 15:45 Ativan IVP 1 mg Q6H PRN Administration Anxiety Rosuvastatin Calcium 5 mg 01/04/18 22:00 01/05/18 23:17 Crestor PO 5 mg HS REYNALDO Administration - Patient Studies Lab Studies: Microbiology Studies 01/04/18 Unknown MRSA Culture (Admit) - Final Naris MRSA NOT DETECTED Lab Studies 01/06/18 01/06/18 01/06/18 Range/Units 11:38 06:14 06:12 WBC 6.3 (4.8-10.8) K/uL RBC 3.22 L (3.80-5.20) Mil/uL Hgb 10.6 L (11.0-16.0) g/dL Hct 31.4 L (34.0-47.0) % MCV 97.7 (81.0-99.0) fL MCH 32.9 H (27.0-31.0) pg MCHC 33.7 (33.0-37.0) g/dL RDW 15.3 H (11.5-14.5) % Plt Count 202 (130-400) K/uL MPV 8.5 (7.2-11.7) fL Neut % (Auto) 71.4 (50.0-75.0) % Lymph % (Auto) 19.3 L (20.0-40.0) % Ocean % (Auto) 8.4 (0.0-10.0) % Eos % (Auto) 0.4 (0.0-4.0) % Baso % (Auto) 0.5 (0.0-2.0) % Neut # (Auto) 4.5 (1.8-7.0) K/uL Lymph # (Auto) 1.2 (1.0-4.3) K/uL Ocean # (Auto) 0.5 (0.0-0.8) K/uL Eos # (Auto) 0.0 (0.0-0.7) K/uL Baso # (Auto) 0.0 (0.0-0.2) K/uL Sodium 142 (132-148) mmol/L Potassium 3.8 (3.6-5.2) mmol/L Chloride 112 H (98-107) mmol/L Carbon Dioxide 24 (22-30) mmol/L Anion Gap 10 (10-20) BUN 2 L (7-17) mg/dL Creatinine 0.5 L (0.7-1.2) mg/dL Est GFR ( Amer) > 60 Est GFR (Non-Af Amer) > 60 POC Glucose (mg/dL) 123 H (65-110) mg/dL Random Glucose 103 (65-105) mg/dL Serum Osmolality (272-300) mosm/kg Calcium 8.6 (8.6-10.4) mg/dl Phosphorus 3.4 (2.5-4.5) mg/dL Magnesium 1.8 (1.6-2.3) mg/dL Total Bilirubin 0.7 (0.2-1.3) mg/dL AST 40 H D (14-36) U/L ALT 29 (9-52) U/L Alkaline Phosphatase 69 (38-126) U/L Total Protein 6.3 (6.3-8.3) g/dL Albumin 2.9 L (3.5-5.0) g/dL Globulin 3.4 (2.2-3.9) gm/dL Albumin/Globulin Ratio 0.8 L (1.0-2.1) 01/06/18 01/06/18 01/06/18 Range/Units 06:04 03:36 00:30 WBC (4.8-10.8) K/uL RBC (3.80-5.20) Mil/uL Hgb (11.0-16.0) g/dL Hct (34.0-47.0) % MCV (81.0-99.0) fL MCH (27.0-31.0) pg MCHC (33.0-37.0) g/dL RDW (11.5-14.5) % Plt Count (130-400) K/uL MPV (7.2-11.7) fL Neut % (Auto) (50.0-75.0) % Lymph % (Auto) (20.0-40.0) % Ocean % (Auto) (0.0-10.0) % Eos % (Auto) (0.0-4.0) % Baso % (Auto) (0.0-2.0) % Neut # (Auto) (1.8-7.0) K/uL Lymph # (Auto) (1.0-4.3) K/uL Ocean # (Auto) (0.0-0.8) K/uL Eos # (Auto) (0.0-0.7) K/uL Baso # (Auto) (0.0-0.2) K/uL Sodium (132-148) mmol/L Potassium (3.6-5.2) mmol/L Chloride (98-107) mmol/L Carbon Dioxide (22-30) mmol/L Anion Gap (10-20) BUN (7-17) mg/dL Creatinine (0.7-1.2) mg/dL Est GFR ( Amer) Est GFR (Non-Af Amer) POC Glucose (mg/dL) 104 108 (65-110) mg/dL Random Glucose (65-105) mg/dL Serum Osmolality 304 H (272-300) mosm/kg Calcium (8.6-10.4) mg/dl Phosphorus (2.5-4.5) mg/dL Magnesium (1.6-2.3) mg/dL Total Bilirubin (0.2-1.3) mg/dL AST (14-36) U/L ALT (9-52) U/L Alkaline Phosphatase (38-126) U/L Total Protein (6.3-8.3) g/dL Albumin (3.5-5.0) g/dL Globulin (2.2-3.9) gm/dL Albumin/Globulin Ratio (1.0-2.1) 01/05/18 01/05/18 Range/Units 21:03 17:49 WBC (4.8-10.8) K/uL RBC (3.80-5.20) Mil/uL Hgb (11.0-16.0) g/dL Hct (34.0-47.0) % MCV (81.0-99.0) fL MCH (27.0-31.0) pg MCHC (33.0-37.0) g/dL RDW (11.5-14.5) % Plt Count (130-400) K/uL MPV (7.2-11.7) fL Neut % (Auto) (50.0-75.0) % Lymph % (Auto) (20.0-40.0) % Ocean % (Auto) (0.0-10.0) % Eos % (Auto) (0.0-4.0) % Baso % (Auto) (0.0-2.0) % Neut # (Auto) (1.8-7.0) K/uL Lymph # (Auto) (1.0-4.3) K/uL Ocean # (Auto) (0.0-0.8) K/uL Eos # (Auto) (0.0-0.7) K/uL Baso # (Auto) (0.0-0.2) K/uL Sodium (132-148) mmol/L Potassium (3.6-5.2) mmol/L Chloride (98-107) mmol/L Carbon Dioxide (22-30) mmol/L Anion Gap (10-20) BUN (7-17) mg/dL Creatinine (0.7-1.2) mg/dL Est GFR ( Amer) Est GFR (Non-Af Amer) POC Glucose (mg/dL) 97 (65-110) mg/dL Random Glucose (65-105) mg/dL Serum Osmolality 296 (272-300) mosm/kg Calcium (8.6-10.4) mg/dl Phosphorus (2.5-4.5) mg/dL Magnesium (1.6-2.3) mg/dL Total Bilirubin (0.2-1.3) mg/dL AST (14-36) U/L ALT (9-52) U/L Alkaline Phosphatase (38-126) U/L Total Protein (6.3-8.3) g/dL Albumin (3.5-5.0) g/dL Globulin (2.2-3.9) gm/dL Albumin/Globulin Ratio (1.0-2.1) Laboratory Results - last 24 hr 01/05/18 01/05/18 01/06/18 17:49 21:03 00:30 WBC RBC Hgb Hct MCV MCH MCHC RDW Plt Count MPV Neut % (Auto) Lymph % (Auto) Ocean % (Auto) Eos % (Auto) Baso % (Auto) Neut # (Auto) Lymph # (Auto) Ocean # (Auto) Eos # (Auto) Baso # (Auto) Sodium Potassium Chloride Carbon Dioxide Anion Gap BUN Creatinine Est GFR ( Amer) Est GFR (Non-Af Amer) POC Glucose (mg/dL) 97 108 Random Glucose Serum Osmolality 296 Calcium Phosphorus Magnesium Total Bilirubin AST ALT Alkaline Phosphatase Total Protein Albumin Globulin Albumin/Globulin Ratio 01/06/18 01/06/18 01/06/18 03:36 06:04 06:12 WBC 6.3 RBC 3.22 L Hgb 10.6 L Hct 31.4 L MCV 97.7 MCH 32.9 H MCHC 33.7 RDW 15.3 H Plt Count 202 MPV 8.5 Neut % (Auto) 71.4 Lymph % (Auto) 19.3 L Ocean % (Auto) 8.4 Eos % (Auto) 0.4 Baso % (Auto) 0.5 Neut # (Auto) 4.5 Lymph # (Auto) 1.2 Ocean # (Auto) 0.5 Eos # (Auto) 0.0 Baso # (Auto) 0.0 Sodium Potassium Chloride Carbon Dioxide Anion Gap BUN Creatinine Est GFR ( Amer) Est GFR (Non-Af Amer) POC Glucose (mg/dL) 104 Random Glucose Serum Osmolality 304 H Calcium Phosphorus Magnesium Total Bilirubin AST ALT Alkaline Phosphatase Total Protein Albumin Globulin Albumin/Globulin Ratio 01/06/18 01/06/18 06:14 11:38 WBC RBC Hgb Hct MCV MCH MCHC RDW Plt Count MPV Neut % (Auto) Lymph % (Auto) Ocean % (Auto) Eos % (Auto) Baso % (Auto) Neut # (Auto) Lymph # (Auto) Ocean # (Auto) Eos # (Auto) Baso # (Auto) Sodium 142 Potassium 3.8 Chloride 112 H Carbon Dioxide 24 Anion Gap 10 BUN 2 L Creatinine 0.5 L Est GFR ( Amer) > 60 Est GFR (Non-Af Amer) > 60 POC Glucose (mg/dL) 123 H Random Glucose 103 Serum Osmolality Calcium 8.6 Phosphorus 3.4 Magnesium 1.8 Total Bilirubin 0.7 AST 40 H D ALT 29 Alkaline Phosphatase 69 Total Protein 6.3 Albumin 2.9 L Globulin 3.4 Albumin/Globulin Ratio 0.8 L Critical Care Progress Note - Nutrition Nutrition: Nutrition Category Date Time Status Pureed [Dysphagia/Modified Consistency Diet] [DIET] Diets 01/06/18 Lunch Active Attending/Attestation - Attestation I have personally seen and examined this patient.: Yes I have fully participated in the care of the patient.: Yes I have reviewed all pertinent clinical information: Yes Notes (Text): 01/06/18 16:54 patient seen and examined in the intensive care unit. mRI and repeat CAT scan of the head noted Patient on aspirin and Plavix Continue 3% normal saline and monitor sodium and serum osmolality Neurology follow-up
--- NOTE | 2018-01-06 12:23 | CP.PCM.PN ---
Subjective - Date & Time of Evaluation Date of Evaluation: 01/06/18 Time of Evaluation: 12:00 - Subjective Subjective: Patient was seen and examined by me. When I saw her she was difficult to arouse - per nursing she had just recieved tylenol - before this she was very awake and alert, albeit with ongoing left leg weakness that is not changed since she came in with the CVA She had an MRI yesterday and this showed acute infarct involving the R cerebral hemisphere and also questionable early hemmorrhagic conversion. And there is the persistent mass effect with midline shift The patient is going for another CT scan at this moment. Per neurology may have to stop the ASA and Plavix depending on this new CT scan She remains on slow hypertonic saline at this moment. Objective - Vital Signs/Intake and Output Vital Signs (last 24 hours): Temp Pulse Resp BP Pulse Ox 98.5 F 87 15 196/106 H 100 01/06/18 08:00 01/06/18 10:11 01/06/18 10:11 01/06/18 10:11 01/06/18 10:11 Intake and Output: 01/06/18 01/06/18 06:59 18:59 Intake Total 650 50 Output Total 900 0 Balance -250 50 - Medications Medications: Current Medications Acetaminophen/Codeine Phosphate (Tylenol/Codeine 300 Mg/30 Mg) 1 ea PO Q4 PRN PRN Reason: Headache Last Admin: 01/06/18 10:57 Dose: 1 ea Aspirin (Aspirin Chewable) 81 mg NG DAILY [facility] Last Admin: 01/06/18 09:49 Dose: 81 mg Clopidogrel Bisulfate (Plavix) 75 mg NG DAILY [facility] Last Admin: 01/06/18 09:49 Dose: 75 mg Famotidine (Pepcid) 20 mg IVP Q12 [facility] Last Admin: 01/06/18 09:57 Dose: 20 mg Folic Acid 1 mg/ Sodium (Chloride) 100.2 mls @ 60 mls/hr IV DAILY [facility] Last Admin: 01/06/18 09:47 Dose: 60 mls/hr Sodium Chloride (Hypertonic Saline 3%) 500 mls @ 50 mls/hr IV .Q10H ONE Stop: 01/06/18 17:29 Last Admin: 01/06/18 09:59 Dose: 50 mls/hr Lorazepam (Ativan) 1 mg IVP Q6H PRN PRN Reason: Anxiety Last Admin: 01/05/18 15:45 Dose: 1 mg Rosuvastatin Calcium (Crestor) 5 mg PO HS [facility] Last Admin: 01/05/18 23:17 Dose: 5 mg - Labs Labs: 01/06/18 06:12 01/06/18 06:14 PT 12.2 SECONDS (9.7-12.2) 01/04/18 11:43 INR 1.1 01/04/18 11:43 APTT 26 SECONDS (21-34) 01/04/18 11:43 Assessment and Plan - Assessment and Plan (Free Text) Assessment: Acute CVA affecting the right parietal/temporal area. 01/06/2018: Patient remains on slow IVF hypertonic saline. She underwent MRI and besides the CVA she had it also is reported as questionable hemorrhage seen. Per neurology we are getting a new CT of the head and decide if need to stop the ASA and Plavix. The echo returned, EF is 55 to 60% 01/05/2018: The second head CT at 23:00 showed midline shifting from right to left. She was given hypertonic saline. The third CT this morning done at 8:30 again shows the the midline shift, to my very untrained eyes it looked not as severe as the second CT. Nevertheless from what I understand ICU is continuing with the hypertonic saline. I also had a very long discussion with the patient's family at bedside and told them that she may need neurosurgical intervention to relieve the pressure that was seen. Later today for MRI, echo. She had NGT removed earlier this morning for swallow eval. She is on Plavix and Crestor. This might need to be placed back in again depending on swallow eval. - CT 1:30 AM 01/04 - large hypodensity at the right brain suggestive of acute right MCA territory infarction - CT @ 12:30: there is mass affect now a 3 mm left shift - CT @ 8:00 AM showed the right MCA/LAURI area with mass effect and compreesion with right to left midline shoft - Dr. Castillo, neurology consulted help appreciated: not a TPA candidate - out of time window - NIHSS - 17 - Neuro checks Q1hour, BP checks Q15 min (will intervene if bp exceed 210/110) - Elevate head of bed to 30 degrees, aspiration precautions - will follow up repeat CT in 12 hours to observe for progression and monitor for herniation - Head/Neck CTA - right coronary artyer disease 75-80% oclusion - Patient failed nursing swallow screen in ER - NPO Heavy alcohol use 01/05/2018: Patient maybe a heavy alcohol user. She did not show signs of withdrawl this morning. Continue to monitor. Hyperlipidemia Tchol 210, Triglycerides 248, LDL 92, HDL 81 Statin to be started when patient can tolerate PO Prophylaxis Protonix 40mg IVP daily SCDs
--- NOTE | 2018-01-06 13:42 | CT ---
PROCEDURE: CT HEAD WITHOUT CONTRAST. HISTORY: stroke COMPARISON: None available. TECHNIQUE: Axial computed tomography images were obtained through the head/brain without intravenous contrast. Radiation dose: Total exam DLP = 1147.31 mGy-cm. This CT exam was performed using one or more of the following dose reduction techniques: Automated exposure control, adjustment of the mA and/or kV according to patient size, and/or use of iterative reconstruction technique. FINDINGS: HEMORRHAGE: No interval intracranial hemorrhage. BRAIN: A large right lower brain infarction is appreciated affecting distributions of the right anterior and middle cerebral arteries once again with persistent effacement of the sulci throughout the right cerebrum and causing a minimal leftward midline shift of 3-4 mm once again. The right lateral ventricle remains partially effaced. No definite newly infarcted territory seen outside of this distribution with the right frontal parietal and temporal lobes again affected at the mid to superior distribution overall. Left cerebral hemisphere remains diffusely unremarkable as well as the brainstem and cerebellum. No suspicious extra-axial fluid collection. Basilar cisterns remain widely patent. Trace chronic microangiopathy is seen at the left cerebrum once again. VENTRICLES: Unremarkable. No hydrocephalus. CALVARIUM: Unremarkable. PARANASAL SINUSES: Unremarkable as visualized. No significant inflammatory changes. MASTOID AIR CELLS: Unremarkable as visualized. No inflammatory changes. OTHER FINDINGS: None. 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 No interval intracranial hemorrhage or expansion of the infarcted territory appreciated. Limited age-related neuro degenerative change reiterated at the left cerebral hemisphere.
[2018-01-07] MEDS: Acetaminophen-Codeine 300/30 mg Tab PO PRN ×2 (01:15→06:35)
[2018-01-07 06:14] LABS: BASO % 0.4 % (0.0-2.0); EOS % 0.3 % (0.0-4.0); HEMOGLOBIN 11.4 g/dL (11.0-16.0); LYMPH # 1.6 K/uL (1.0-4.3); LYMPH % 18.5 % (20.0-40.0); MEAN CELL VOLUME 95.7 fL (81.0-99.0); MEAN CORPUSCULAR HGB CONC 34.5 g/dL (33.0-37.0); MEAN PLATELET VOLUME 8.4 fL (7.2-11.7); MONO # 0.7 K/uL (0.0-0.8); NEUT # 6.2 K/uL (1.8-7.0); NEUT % 72.8 % (50.0-75.0); NRBC % 0.1 % (0.0-2.0); RBC 3.46 Mil/uL (3.80-5.20); RED CELL DISTRIBUTION WIDTH 15.2 % (11.5-14.5); WHITE BLOOD COUNT 8.5 K/uL (4.8-10.8)
[2018-01-07 06:26] LABS: ALB/GLOB RATIO 0.8 (1.0-2.1); ALBUMIN 3.2 g/dL (3.5-5.0); ALT/SGPT 31 U/L (9-52); AST/SGOT 40 U/L (14-36); CALCIUM 8.6 mg/dl (8.6-10.4); GFR AFRICAN-AMERICAN > 60; GFR NON-AFRICAN AMERICAN > 60
--- NOTE | 2018-01-07 06:38 | CP.PCM.PN ---
Subjective - Date & Time of Evaluation Date of Evaluation: 01/07/18 Time of Evaluation: 06:33 - Subjective Subjective: Ms. Bui was seen and examined at the bedside in ICU. She is alert, oriented in all spheres. Her speech is clear.She denies any dizziness, blurred vision, nausea, or vomiting. She is complaining of headache with pain scale 5/10, located in the right parietal area, radiating to her right side of her neck.She was able to follow commands with left facial droop, and left hemiplegia. Sensation is asymmetrical especially on the left side. She is currently receiving 3% hytertonic IV at 50 ml/hr.solution According to staff, the patient has episode of confusion at nighttime. The MRI of the brain done 01/05/2018 showed acute infarct changes involving a good portion of the right cerebral hemisphere ( distal braches) of the right MCA and anterior cerebbral arteries. Questionable early hemorrhagic conversion changes right basal ganglia evidenced by foci dark T2 signal in theses location. Persistent mass effect with mild midline shift. CT scan done 01/06/2018 showed stable large right right infarcted involving the right anterior MCA territories and stable mass effect effacing the sulci of the right cerebral hemispheres in causing a limited leftward some fall seen shift 3-4 mm . No interval intracranial hemorrhage or expansion of the infarcted territory. Limited age-related neuro-degenerative change reiterated at the left cerebral hemisphere. Latest Na level -140 and serum osmolality- 289.There was no untoward events overnight. Objective - Vital Signs/Intake and Output Vital Signs (last 24 hours): Temp Pulse Resp BP Pulse Ox 98.9 F 86 14 159/72 H 99 01/07/18 04:00 01/07/18 04:01 01/07/18 04:01 01/07/18 04:01 01/07/18 04:01 Intake and Output: 01/06/18 01/07/18 18:59 06:59 Intake Total 550 620 Output Total 600 300 Balance -50 320 - Medications Medications: Current Medications Acetaminophen/Codeine Phosphate (Tylenol/Codeine 300 Mg/30 Mg) 1 ea PO Q4 PRN PRN Reason: Headache Last Admin: 01/07/18 01:15 Dose: 1 ea Aspirin (Aspirin Chewable) 81 mg NG DAILY [facility] Last Admin: 01/06/18 09:49 Dose: 81 mg Clopidogrel Bisulfate (Plavix) 75 mg NG DAILY [facility] Last Admin: 01/06/18 09:49 Dose: 75 mg Famotidine (Pepcid) 20 mg IVP Q12 [facility] Last Admin: 01/06/18 22:00 Dose: 20 mg Hydralazine HCl (Apresoline) 10 mg IVP Q6H PRN PRN Reason: SBP>160 Last Admin: 01/06/18 22:00 Dose: 10 mg Folic Acid 1 mg/ Sodium (Chloride) 100.2 mls @ 60 mls/hr IV DAILY [facility] Last Admin: 01/06/18 09:47 Dose: 60 mls/hr Lorazepam (Ativan) 1 mg IVP Q6H PRN PRN Reason: Anxiety Last Admin: 01/05/18 15:45 Dose: 1 mg Rosuvastatin Calcium (Crestor) 5 mg PO HS [facility] Last Admin: 01/06/18 22:00 Dose: 5 mg - Labs Labs: 01/07/18 06:04 01/07/18 06:04 PT 12.2 SECONDS (9.7-12.2) 01/04/18 11:43 INR 1.1 01/04/18 11:43 APTT 26 SECONDS (21-34) 01/04/18 11:43 - Constitutional Appears: No Acute Distress - Head Exam Head Exam: NORMAL INSPECTION - Eye Exam Pupil Exam: Irregular Additional comments: right eye 2 mm- brisk and left eye 3 mm sluggish - Neurological Exam Neurological Exam: Alert, Awake, Oriented x3 Neuro motor strength exam: Left Upper Extremity: 0, Right Upper Extremity: 5, Left Lower Extremity: 0, Right Lower Extremity: 5 Additional comments: Neurological improved , she is alert, oriented, follows commands with asymmetrical sensation. Assessment and Plan (1) CVA (cerebral vascular accident) Assessment & Plan: Case discussed with Dr. Jacob, continue all current medical, physical, and occupational therapies. Recommend depakote for her recurrent headache and will help with her mood stability. If the headache persist to repeat CT scan of the head without contrast.Seroquel 25 mg PO at HS for her confusion at nighttime. Recommend to monitor valproic and liver enzymes. Status: Acute
[2018-01-07 06:40] LABS: BLOOD UREA NITROGEN < 2 mg/dL (7-17)
[2018-01-07] MEDS: Valproate 500 MG in Sodium Chloride 0.9% 100 ML IVPB SCH ×3 (07:15→22:41)
[2018-01-07] MEDS ORDERED: Potassium Chloride 20 mEq/15 ml LIQ UD PO ONE ×2 (07:45→09:15)
--- NOTE | 2018-01-07 09:06 | VASCLAB ---
PROCEDURE: Lower Extremity Venous Duplex Exam. HISTORY: LE Edema PRIORS: None. TECHNIQUE: Bilateral common femoral, femoral, popliteal and posterior tibial, peroneal and great saphenous veins were evaluated. Flow was assessed with color Doppler, compressibility, assessment of phasic flow and augmentation response. Report prepared by BHUPINDER Reyes, RVT FINDINGS: RIGHT: 1. Common Femoral Vein: 1.1. Compressibility - Fully compressible: Thrombus - None : Flow - Phasic: Augmentation -Normal: Reflux - None. 2. Femoral Vein: 2.1. Compressibility - Fully compressible: Thrombus - None : Flow - Phasic: Augmentation -Normal: Reflux - None. 3. Popliteal Vein: 3.1. Compressibility - Fully compressible: Thrombus - None : Flow - Phasic: Augmentation -Normal: Reflux - None. 4. Posterior Tibial Vein: 4.1. Compressibility - Fully compressible: Thrombus - None: Flow - Phasic: Augmentation -Normal: Reflux - None. 5. Peroneal Vein: 5.1. Compressibility - Fully compressible: Thrombus - None: Flow - Phasic: Augmentation -Normal: Reflux - None. 6. Great Saphenous Vein: 6.1. Compressibility - Fully compressible: Thrombus - None: Flow - Phasic: Augmentation - Normal: Reflux - severe. LEFT: 1. Common Femoral Vein: 1.1. Compressibility - Fully compressible: Thrombus - None: Flow - Phasic: Augmentation -Normal: Reflux - None. 2. Femoral Vein: 2.1. Compressibility - Fully compressible: Thrombus - None: Flow - Phasic: Augmentation -Normal: Reflux - None. 3. Popliteal Vein: 3.1. Compressibility - Fully compressible: Thrombus - None : Flow - Phasic: Augmentation -Normal: Reflux - None. 4. Posterior Tibial Vein: 4.1. Compressibility - Fully compressible: Thrombus - None: Flow - Phasic: Augmentation -Normal: Reflux - None. 5. Peroneal Vein: 5.1. Compressibility - Fully compressible: Thrombus - None: Flow - Phasic: Augmentation -Normal: Reflux - None. 6. Great Saphenous Vein: 6.1. Compressibility - Fully compressible: Thrombus - None: Flow - Phasic: Augmentation - Normal: Reflux - None. OTHER FINDINGS: Right: None significant. Left: None significant. IMPRESSION: Right: No evidence of deep or superficial vein thrombosis of the right lower extremity. Valvular incompetence of the right greater saphenous vein. Left: No evidence of deep or superficial vein thrombosis of the left lower extremity. Normal valve function noted of the left side.
[2018-01-07] MEDS: Magnesium Sulfate 1 gm in D5W 1 GM/100 ML BAG IVPB SCH ×2 (09:17→11:45)
[2018-01-07] MEDS ORDERED: Sodium Chloride 3% 500 ML IV ONE ×2 (10:00→20:55)
--- NOTE | 2018-01-07 11:49 | CT ---
PROCEDURE: CT HEAD WITHOUT CONTRAST. HISTORY: follow up hemorrhagic conversion seen in the MRI, COMPARISON: None available. TECHNIQUE: Axial computed tomography images were obtained through the head/brain without intravenous contrast. Radiation dose: Total exam DLP = 832.2 not mGy-cm. This CT exam was performed using one or more of the following dose reduction techniques: Automated exposure control, adjustment of the mA and/or kV according to patient size, and/or use of iterative reconstruction technique. FINDINGS: HEMORRHAGE: No intracranial hemorrhage. BRAIN: Large right frontotemporoparietal infarct unchanged in extent compared to prior examination. This involves both LAURI and MCA territory. 2-3 mm midline shift towards the left. Mild effacement of the right lateral ventricle. VENTRICLES: No hydrocephalus. 2-3 mm midline shift towards the left. Mild effacement of right lateral ventricle. No downward herniation. CALVARIUM: Unremarkable. PARANASAL SINUSES: Unremarkable as visualized. No significant inflammatory changes. MASTOID AIR CELLS: Unremarkable as visualized. No inflammatory changes. OTHER FINDINGS: None. IMPRESSION: Acute/ subacute right frontotemporoparietal infarct. This involves both the LAURI and MCA territory. No hemorrhage. 2-3 mm midline shift towards the left. No significant change from prior examination.
--- NOTE | 2018-01-07 11:51 | CP.CCUPN ---
<Hesham Fragoso - Last Filed: 01/07/18 11:43> CCU Subjective - Physician Review Subjective (Free Text): 01/05/18 18:51 Patient seen and examined. Patient complaining of mild headache. Patient continues to have left sided weakness. 01/06/18 11:17 Patient seen and examined. Patient continues to complain of headache. Patient is also complaining of neck discomfort as well. She continues to have left sided weakness, although she has recovered some sensation on the left side now. 01/07/18 11:43 Patient seen and examined. Patient has continued left sided weakness. Patient is also feeling lethargic this morning after having been given medication overnight for agitation/confusion. CCU Objective - Vital Signs / Intake & Output Vital Signs (Last 4 hours): Vital Signs Temp Pulse Resp BP Pulse Ox 01/07/18 10:01 94 H 17 148/87 98 01/07/18 10:00 95 H 17 98 01/07/18 09:01 95 H 14 165/88 H 98 01/07/18 09:00 101 H 16 98 01/07/18 08:01 95 H 15 140/79 98 01/07/18 08:00 98.1 F 97 H 16 98 Intake and Output (Last 8hrs): Intake & Output 01/06/18 01/07/18 01/07/18 22:59 06:59 14:59 Intake Total 460 560 400 Output Total 600 500 Balance -140 60 400 Weight 148 lb 3 oz Intake: Intake, IV Amount 400 500 400 Right Internal Jugular 200 Right Medial Port 200 400 200 Internal Jugular Right Proximal Port 0 100 200 Internal Jugular Oral 60 60 Output: Urine 600 500 Urine, Voided 600 500 - Physical Exam Head: Positive for: Atraumatic, Normocephalic Pupils: Positive for: PERRL Mouth: Positive for: Moist Mucous Membranes Nose (Internal): Positive for: Other (Right IJ TLC) Respiratory/Chest: Positive for: Clear to Auscultation. Negative for: Wheezes, Rales, Rhonchi Cardiovascular: Positive for: Regular Rate and Rhythm, Normal S1, S2 Abdomen: Positive for: Normal Bowel Sounds. Negative for: Tenderness, Distention Upper Extremity: Positive for: Normal Inspection Lower Extremity: Positive for: Normal Inspection Neurological: Positive for: GCS=15. Negative for: Motor Func Grossly Intact ( left sided weakness upper and lower extremities) Skin: Positive for: Warm, Dry Psychiatric: Positive for: Alert, Oriented x 3 - Medications Active Medications: Active Medications Generic Name Dose Route Start Last Admin Trade Name Freq PRN Reason Stop Dose Admin Acetaminophen/Codeine Phosphate 1 ea 01/04/18 23:44 01/07/18 06:35 Tylenol/Codeine 300 Mg/30 Mg PO 1 ea Q4 PRN Administration Headache Aspirin 81 mg 01/05/18 09:00 01/06/18 09:49 Aspirin Chewable NG 81 mg DAILY REYNALDO Administration Clopidogrel Bisulfate 75 mg 01/05/18 09:00 01/06/18 09:49 Plavix NG 75 mg DAILY REYNALDO Administration Famotidine 20 mg 01/05/18 09:00 01/07/18 09:17 Pepcid IVP 20 mg Q12 REYNALDO Administration Hydralazine HCl 10 mg 01/06/18 18:26 01/07/18 06:35 Apresoline IVP 10 mg Q6H PRN Administration SBP>160 Folic Acid 1 mg/ Sodium 100.2 mls @ 60 mls/hr 01/05/18 10:00 01/07/18 09:59 Chloride IV 60 mls/hr DAILY REYNALDO Administration Valproate Sodium 500 mg/ 105 mls @ 0 mls/hr 01/07/18 06:39 01/07/18 09:54 Sodium Chloride IVPB 500 mls/hr Q12 REYNALDO Administration Per Protocol Sodium Chloride 500 mls @ 50 mls/hr 01/07/18 10:00 01/07/18 10:00 Hypertonic Saline 3% IV 01/07/18 19:59 50 mls/hr .Q10H ONE Administration Lorazepam 1 mg 01/04/18 13:38 01/05/18 15:45 Ativan IVP 1 mg Q6H PRN Administration Anxiety Quetiapine Fumarate 25 mg 01/07/18 17:00 Seroquel PO DAILY REYNALDO Rosuvastatin Calcium 5 mg 01/04/18 22:00 01/06/18 22:00 Crestor PO 5 mg HS REYNALDO Administration - Patient Studies Lab Studies: Lab Studies 01/07/18 01/07/18 01/07/18 Range/Units 11:22 07:33 06:04 WBC (4.8-10.8) K/uL RBC (3.80-5.20) Mil/uL Hgb (11.0-16.0) g/dL Hct (34.0-47.0) % MCV (81.0-99.0) fL MCH (27.0-31.0) pg MCHC (33.0-37.0) g/dL RDW (11.5-14.5) % Plt Count (130-400) K/uL MPV (7.2-11.7) fL Neut % (Auto) (50.0-75.0) % Lymph % (Auto) (20.0-40.0) % [place] % (Auto) (0.0-10.0) % Eos % (Auto) (0.0-4.0) % Baso % (Auto) (0.0-2.0) % Neut # (Auto) (1.8-7.0) K/uL Lymph # (Auto) (1.0-4.3) K/uL [place] # (Auto) (0.0-0.8) K/uL Eos # (Auto) (0.0-0.7) K/uL Baso # (Auto) (0.0-0.2) K/uL Sodium (132-148) mmol/L Potassium (3.6-5.2) mmol/L Chloride (98-107) mmol/L Carbon Dioxide (22-30) mmol/L Anion Gap (10-20) BUN (7-17) mg/dL Creatinine (0.7-1.2) mg/dL Est GFR ( Amer) Est GFR (Non-Af Amer) POC Glucose (mg/dL) 121 H 128 H (65-110) mg/dL Random Glucose (65-105) mg/dL Serum Osmolality 289 (272-300) mosm/kg Calcium (8.6-10.4) mg/dl Phosphorus (2.5-4.5) mg/dL Magnesium (1.6-2.3) mg/dL Total Bilirubin (0.2-1.3) mg/dL AST (14-36) U/L ALT (9-52) U/L Alkaline Phosphatase (38-126) U/L Total Protein (6.3-8.3) g/dL Albumin (3.5-5.0) g/dL Globulin (2.2-3.9) gm/dL Albumin/Globulin Ratio (1.0-2.1) 01/07/18 01/07/18 01/06/18 Range/Units 06:04 06:04 21:09 WBC 8.5 (4.8-10.8) K/uL RBC 3.46 L (3.80-5.20) Mil/uL Hgb 11.4 (11.0-16.0) g/dL Hct 33.1 L (34.0-47.0) % MCV 95.7 D (81.0-99.0) fL MCH 33.0 H (27.0-31.0) pg MCHC 34.5 (33.0-37.0) g/dL RDW 15.2 H (11.5-14.5) % Plt Count 216 (130-400) K/uL MPV 8.4 (7.2-11.7) fL Neut % (Auto) 72.8 (50.0-75.0) % Lymph % (Auto) 18.5 L (20.0-40.0) % [place] % (Auto) 8.0 (0.0-10.0) % Eos % (Auto) 0.3 (0.0-4.0) % Baso % (Auto) 0.4 (0.0-2.0) % Neut # (Auto) 6.2 (1.8-7.0) K/uL Lymph # (Auto) 1.6 (1.0-4.3) K/uL [place] # (Auto) 0.7 (0.0-0.8) K/uL Eos # (Auto) 0.0 (0.0-0.7) K/uL Baso # (Auto) 0.0 (0.0-0.2) K/uL Sodium 140 (132-148) mmol/L Potassium 3.1 L (3.6-5.2) mmol/L Chloride 106 (98-107) mmol/L Carbon Dioxide 25 (22-30) mmol/L Anion Gap 13 (10-20) BUN < 2 L (7-17) mg/dL Creatinine 0.4 L (0.7-1.2) mg/dL Est GFR ( Amer) > 60 Est GFR (Non-Af Amer) > 60 POC Glucose (mg/dL) 101 (65-110) mg/dL Random Glucose 116 H (65-105) mg/dL Serum Osmolality (272-300) mosm/kg Calcium 8.6 (8.6-10.4) mg/dl Phosphorus 3.7 (2.5-4.5) mg/dL Magnesium 1.5 L (1.6-2.3) mg/dL Total Bilirubin 0.7 (0.2-1.3) mg/dL AST 40 H (14-36) U/L ALT 31 (9-52) U/L Alkaline Phosphatase 73 (38-126) U/L Total Protein 6.9 (6.3-8.3) g/dL Albumin 3.2 L (3.5-5.0) g/dL Globulin 3.8 (2.2-3.9) gm/dL Albumin/Globulin Ratio 0.8 L (1.0-2.1) 01/06/18 01/06/18 01/06/18 Range/Units 18:54 17:32 11:38 WBC (4.8-10.8) K/uL RBC (3.80-5.20) Mil/uL Hgb (11.0-16.0) g/dL Hct (34.0-47.0) % MCV (81.0-99.0) fL MCH (27.0-31.0) pg MCHC (33.0-37.0) g/dL RDW (11.5-14.5) % Plt Count (130-400) K/uL MPV (7.2-11.7) fL Neut % (Auto) (50.0-75.0) % Lymph % (Auto) (20.0-40.0) % [place] % (Auto) (0.0-10.0) % Eos % (Auto) (0.0-4.0) % Baso % (Auto) (0.0-2.0) % Neut # (Auto) (1.8-7.0) K/uL Lymph # (Auto) (1.0-4.3) K/uL [place] # (Auto) (0.0-0.8) K/uL Eos # (Auto) (0.0-0.7) K/uL Baso # (Auto) (0.0-0.2) K/uL Sodium (132-148) mmol/L Potassium (3.6-5.2) mmol/L Chloride (98-107) mmol/L Carbon Dioxide (22-30) mmol/L Anion Gap (10-20) BUN (7-17) mg/dL Creatinine (0.7-1.2) mg/dL Est GFR ( Amer) Est GFR (Non-Af Amer) POC Glucose (mg/dL) 104 123 H (65-110) mg/dL Random Glucose (65-105) mg/dL Serum Osmolality 293 (272-300) mosm/kg Calcium (8.6-10.4) mg/dl Phosphorus (2.5-4.5) mg/dL Magnesium (1.6-2.3) mg/dL Total Bilirubin (0.2-1.3) mg/dL AST (14-36) U/L ALT (9-52) U/L Alkaline Phosphatase (38-126) U/L Total Protein (6.3-8.3) g/dL Albumin (3.5-5.0) g/dL Globulin (2.2-3.9) gm/dL Albumin/Globulin Ratio (1.0-2.1) Laboratory Results - last 24 hr 01/06/18 01/06/18 01/06/18 11:38 17:32 18:54 WBC RBC Hgb Hct MCV MCH MCHC RDW Plt Count MPV Neut % (Auto) Lymph % (Auto) [place] % (Auto) Eos % (Auto) Baso % (Auto) Neut # (Auto) Lymph # (Auto) [place] # (Auto) Eos # (Auto) Baso # (Auto) Sodium Potassium Chloride Carbon Dioxide Anion Gap BUN Creatinine Est GFR ( Amer) Est GFR (Non-Af Amer) POC Glucose (mg/dL) 123 H 104 Random Glucose Serum Osmolality 293 Calcium Phosphorus Magnesium Total Bilirubin AST ALT Alkaline Phosphatase Total Protein Albumin Globulin Albumin/Globulin Ratio 01/06/18 01/07/18 01/07/18 21:09 06:04 06:04 WBC 8.5 RBC 3.46 L Hgb 11.4 Hct 33.1 L MCV 95.7 D MCH 33.0 H MCHC 34.5 RDW 15.2 H Plt Count 216 MPV 8.4 Neut % (Auto) 72.8 Lymph % (Auto) 18.5 L [place] % (Auto) 8.0 Eos % (Auto) 0.3 Baso % (Auto) 0.4 Neut # (Auto) 6.2 Lymph # (Auto) 1.6 [place] # (Auto) 0.7 Eos # (Auto) 0.0 Baso # (Auto) 0.0 Sodium 140 Potassium 3.1 L Chloride 106 Carbon Dioxide 25 Anion Gap 13 BUN < 2 L Creatinine 0.4 L Est GFR ( Amer) > 60 Est GFR (Non-Af Amer) > 60 POC Glucose (mg/dL) 101 Random Glucose 116 H Serum Osmolality Calcium 8.6 Phosphorus 3.7 Magnesium 1.5 L Total Bilirubin 0.7 AST 40 H ALT 31 Alkaline Phosphatase 73 Total Protein 6.9 Albumin 3.2 L Globulin 3.8 Albumin/Globulin Ratio 0.8 L 01/07/18 01/07/18 01/07/18 06:04 07:33 11:22 WBC RBC Hgb Hct MCV MCH MCHC RDW Plt Count MPV Neut % (Auto) Lymph % (Auto) [place] % (Auto) Eos % (Auto) Baso % (Auto) Neut # (Auto) Lymph # (Auto) [place] # (Auto) Eos # (Auto) Baso # (Auto) Sodium Potassium Chloride Carbon Dioxide Anion Gap BUN Creatinine Est GFR ( Amer) Est GFR (Non-Af Amer) POC Glucose (mg/dL) 128 H 121 H Random Glucose Serum Osmolality 289 Calcium Phosphorus Magnesium Total Bilirubin AST ALT Alkaline Phosphatase Total Protein Albumin Globulin Albumin/Globulin Ratio Fingerstick Blood Sugar Results: 101 Critical Care Progress Note - Nutrition Nutrition: Nutrition Category Date Time Status Pureed [Dysphagia/Modified Consistency Diet] [DIET] Diets 01/06/18 Lunch Active Assessment/Plan - Assessment and Plan (Free Text) Assessment: This is a 57 year old female with no significant PMHx who presented with left sided weakness. 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 There are early signs of hemorrhagic conversion per MRI. Repeat head CT demonstrates no significant changes in midline shift. Neuro Neurology consulted Hypertonic saline running Per neuro keep sodium between 145-150 and serum osmolality below 320 Recheck Q12H in nursing communications Repeat head CT demonstrates no significant changes in midline shift. f/u further neurology recommendations Cardio May gradually reduce the BP Hydralazine 10 mg IV Q6 prn Crestor 5 HS Pulm saturating well GI Pureed diet Pepcid 20 mg IV BID Heme/onc Bilateral LE dopplers negative preliminary Prophylaxis Pepcid not currently on VTE due to risk of bleeding Right IJ TLC placed on 01/05/[address] Sanchez <Andrade Sanchez - Last Filed: 01/07/18 18:00> CCU Objective - Vital Signs / Intake & Output Vital Signs (Last 4 hours): Vital Signs Temp Pulse Resp BP Pulse Ox 01/07/18 17:01 178/88 H 01/07/18 17:00 106 H 13 99 01/07/18 16:01 107 H 17 163/80 H 99 01/07/18 16:00 98.4 F 01/07/18 15:01 101 H 19 157/78 H 99 01/07/18 15:00 102 H 13 99 01/07/18 14:01 96 H 14 170/92 H 99 01/07/18 14:00 101 H 12 159/87 H 99 Intake and Output (Last 8hrs): Intake & Output 01/07/18 01/07/18 01/07/18 06:59 14:59 22:59 Intake Total 560 1180 510 Output Total 500 Balance 60 1180 510 Weight 148 lb 3 oz Intake: Intake, IV Amount 500 700 150 Right Medial Port 400 400 150 Internal Jugular Right Proximal Port 100 300 Internal Jugular Oral 60 480 360 Output: Urine 500 Urine, Voided 500 - Medications Active Medications: Active Medications Generic Name Dose Route Start Last Admin Trade Name Freq PRN Reason Stop Dose Admin Acetaminophen/Codeine Phosphate 1 ea 01/04/18 23:44 01/07/18 06:35 Tylenol/Codeine 300 Mg/30 Mg PO 1 ea Q4 PRN Administration Headache Aspirin 81 mg 01/05/18 09:00 01/07/18 12:04 Aspirin Chewable NG 81 mg DAILY REYNALDO Administration Clopidogrel Bisulfate 75 mg 01/05/18 09:00 01/07/18 12:04 Plavix NG 75 mg DAILY REYNALDO Administration Famotidine 20 mg 01/05/18 09:00 01/07/18 09:17 Pepcid IVP 20 mg Q12 REYNALDO Administration Hydralazine HCl 10 mg 01/06/18 18:26 01/07/18 06:35 Apresoline IVP 10 mg Q6H PRN Administration SBP>160 Folic Acid 1 mg/ Sodium 100.2 mls @ 60 mls/hr 01/05/18 10:00 01/07/18 09:59 Chloride IV 60 mls/hr DAILY REYNALDO Administration Valproate Sodium 500 mg/ 105 mls @ 0 mls/hr 01/07/18 06:39 01/07/18 09:54 Sodium Chloride IVPB 500 mls/hr Q12 REYNALDO Administration Per Protocol Sodium Chloride 500 mls @ 50 mls/hr 01/07/18 10:00 01/07/18 10:00 Hypertonic Saline 3% IV 01/07/18 19:59 50 mls/hr .Q10H ONE Administration Lorazepam 1 mg 01/04/18 13:38 01/05/18 15:45 Ativan IVP 1 mg Q6H PRN Administration Anxiety Quetiapine Fumarate 25 mg 01/07/18 17:00 Seroquel PO DAILY REYNALDO Rosuvastatin Calcium 5 mg 01/04/18 22:00 01/06/18 22:00 Crestor PO 5 mg HS REYNALDO Administration - Patient Studies Lab Studies: Lab Studies 01/07/18 01/07/18 01/07/18 Range/Units 15:57 11:22 07:33 WBC (4.8-10.8) K/uL RBC (3.80-5.20) Mil/uL Hgb (11.0-16.0) g/dL Hct (34.0-47.0) % MCV (81.0-99.0) fL MCH (27.0-31.0) pg MCHC (33.0-37.0) g/dL RDW (11.5-14.5) % Plt Count (130-400) K/uL MPV (7.2-11.7) fL Neut % (Auto) (50.0-75.0) % Lymph % (Auto) (20.0-40.0) % [place] % (Auto) (0.0-10.0) % Eos % (Auto) (0.0-4.0) % Baso % (Auto) (0.0-2.0) % Neut # (Auto) (1.8-7.0) K/uL Lymph # (Auto) (1.0-4.3) K/uL [place] # (Auto) (0.0-0.8) K/uL Eos # (Auto) (0.0-0.7) K/uL Baso # (Auto) (0.0-0.2) K/uL Sodium (132-148) mmol/L Potassium (3.6-5.2) mmol/L Chloride (98-107) mmol/L Carbon Dioxide (22-30) mmol/L Anion Gap (10-20) BUN (7-17) mg/dL Creatinine (0.7-1.2) mg/dL Est GFR ( Amer) Est GFR (Non-Af Amer) POC Glucose (mg/dL) 119 H 121 H 128 H (65-110) mg/dL Random Glucose (65-105) mg/dL Serum Osmolality (272-300) mosm/kg Calcium (8.6-10.4) mg/dl Phosphorus (2.5-4.5) mg/dL Magnesium (1.6-2.3) mg/dL Total Bilirubin (0.2-1.3) mg/dL AST (14-36) U/L ALT (9-52) U/L Alkaline Phosphatase (38-126) U/L Total Protein (6.3-8.3) g/dL Albumin (3.5-5.0) g/dL Globulin (2.2-3.9) gm/dL Albumin/Globulin Ratio (1.0-2.1) 01/07/18 01/07/18 01/07/18 Range/Units 06:04 06:04 06:04 WBC 8.5 (4.8-10.8) K/uL RBC 3.46 L (3.80-5.20) Mil/uL Hgb 11.4 (11.0-16.0) g/dL Hct 33.1 L (34.0-47.0) % MCV 95.7 D (81.0-99.0) fL MCH 33.0 H (27.0-31.0) pg MCHC 34.5 (33.0-37.0) g/dL RDW 15.2 H (11.5-14.5) % Plt Count 216 (130-400) K/uL MPV 8.4 (7.2-11.7) fL Neut % (Auto) 72.8 (50.0-75.0) % Lymph % (Auto) 18.5 L (20.0-40.0) % [place] % (Auto) 8.0 (0.0-10.0) % Eos % (Auto) 0.3 (0.0-4.0) % Baso % (Auto) 0.4 (0.0-2.0) % Neut # (Auto) 6.2 (1.8-7.0) K/uL Lymph # (Auto) 1.6 (1.0-4.3) K/uL [place] # (Auto) 0.7 (0.0-0.8) K/uL Eos # (Auto) 0.0 (0.0-0.7) K/uL Baso # (Auto) 0.0 (0.0-0.2) K/uL Sodium 140 (132-148) mmol/L Potassium 3.1 L (3.6-5.2) mmol/L Chloride 106 (98-107) mmol/L Carbon Dioxide 25 (22-30) mmol/L Anion Gap 13 (10-20) BUN < 2 L (7-17) mg/dL Creatinine 0.4 L (0.7-1.2) mg/dL Est GFR ( Amer) > 60 Est GFR (Non-Af Amer) > 60 POC Glucose (mg/dL) (65-110) mg/dL Random Glucose 116 H (65-105) mg/dL Serum Osmolality 289 (272-300) mosm/kg Calcium 8.6 (8.6-10.4) mg/dl Phosphorus 3.7 (2.5-4.5) mg/dL Magnesium 1.5 L (1.6-2.3) mg/dL Total Bilirubin 0.7 (0.2-1.3) mg/dL AST 40 H (14-36) U/L ALT 31 (9-52) U/L Alkaline Phosphatase 73 (38-126) U/L Total Protein 6.9 (6.3-8.3) g/dL Albumin 3.2 L (3.5-5.0) g/dL Globulin 3.8 (2.2-3.9) gm/dL Albumin/Globulin Ratio 0.8 L (1.0-2.1) 01/06/18 01/06/1818 Range/Units 21:09 18:54 17:32 WBC (4.8-10.8) K/uL RBC (3.80-5.20) Mil/uL Hgb (11.0-16.0) g/dL Hct (34.0-47.0) % MCV (81.0-99.0) fL MCH (27.0-31.0) pg MCHC (33.0-37.0) g/dL RDW (11.5-14.5) % Plt Count (130-400) K/uL MPV (7.2-11.7) fL Neut % (Auto) (50.0-75.0) % Lymph % (Auto) (20.0-40.0) % [place] % (Auto) (0.0-10.0) % Eos % (Auto) (0.0-4.0) % Baso % (Auto) (0.0-2.0) % Neut # (Auto) (1.8-7.0) K/uL Lymph # (Auto) (1.0-4.3) K/uL [place] # (Auto) (0.0-0.8) K/uL Eos # (Auto) (0.0-0.7) K/uL Baso # (Auto) (0.0-0.2) K/uL Sodium (132-148) mmol/L Potassium (3.6-5.2) mmol/L Chloride (98-107) mmol/L Carbon Dioxide (22-30) mmol/L Anion Gap (10-20) BUN (7-17) mg/dL Creatinine (0.7-1.2) mg/dL Est GFR ( Amer) Est GFR (Non-Af Amer) POC Glucose (mg/dL) 101 104 (65-110) mg/dL Random Glucose (65-105) mg/dL Serum Osmolality 293 (272-300) mosm/kg Calcium (8.6-10.4) mg/dl Phosphorus (2.5-4.5) mg/dL Magnesium (1.6-2.3) mg/dL Total Bilirubin (0.2-1.3) mg/dL AST (14-36) U/L ALT (9-52) U/L Alkaline Phosphatase (38-126) U/L Total Protein (6.3-8.3) g/dL Albumin (3.5-5.0) g/dL Globulin (2.2-3.9) gm/dL Albumin/Globulin Ratio (1.0-2.1) Laboratory Results - last 24 hr 01/06/18 01/06/18 01/06/18 17:32 18:54 21:09 WBC RBC Hgb Hct MCV MCH MCHC RDW Plt Count MPV Neut % (Auto) Lymph % (Auto) [place] % (Auto) Eos % (Auto) Baso % (Auto) Neut # (Auto) Lymph # (Auto) [place] # (Auto) Eos # (Auto) Baso # (Auto) Sodium Potassium Chloride Carbon Dioxide Anion Gap BUN Creatinine Est GFR ( Amer) Est GFR (Non-Af Amer) POC Glucose (mg/dL) 104 101 Random Glucose Serum Osmolality 293 Calcium Phosphorus Magnesium Total Bilirubin AST ALT Alkaline Phosphatase Total Protein Albumin Globulin Albumin/Globulin Ratio 01/07/18 01/07/18 01/07/18 06:04 06:04 06:04 WBC 8.5 RBC 3.46 L Hgb 11.4 Hct 33.1 L MCV 95.7 D MCH 33.0 H MCHC 34.5 RDW 15.2 H Plt Count 216 MPV 8.4 Neut % (Auto) 72.8 Lymph % (Auto) 18.5 L [place] % (Auto) 8.0 Eos % (Auto) 0.3 Baso % (Auto) 0.4 Neut # (Auto) 6.2 Lymph # (Auto) 1.6 [place] # (Auto) 0.7 Eos # (Auto) 0.0 Baso # (Auto) 0.0 Sodium 140 Potassium 3.1 L Chloride 106 Carbon Dioxide 25 Anion Gap 13 BUN < 2 L Creatinine 0.4 L Est GFR ( Amer) > 60 Est GFR (Non-Af Amer) > 60 POC Glucose (mg/dL) Random Glucose 116 H Serum Osmolality 289 Calcium 8.6 Phosphorus 3.7 Magnesium 1.5 L Total Bilirubin 0.7 AST 40 H ALT 31 Alkaline Phosphatase 73 Total Protein 6.9 Albumin 3.2 L Globulin 3.8 Albumin/Globulin Ratio 0.8 L 01/07/18 01/07/18 01/07/18 07:33 11:22 15:57 WBC RBC Hgb Hct MCV MCH MCHC RDW Plt Count MPV Neut % (Auto) Lymph % (Auto) [place] % (Auto) Eos % (Auto) Baso % (Auto) Neut # (Auto) Lymph # (Auto) [place] # (Auto) Eos # (Auto) Baso # (Auto) Sodium Potassium Chloride Carbon Dioxide Anion Gap BUN Creatinine Est GFR ( Amer) Est GFR (Non-Af Amer) POC Glucose (mg/dL) 128 H 121 H 119 H Random Glucose Serum Osmolality Calcium Phosphorus Magnesium Total Bilirubin AST ALT Alkaline Phosphatase Total Protein Albumin Globulin Albumin/Globulin Ratio Critical Care Progress Note - Nutrition Nutrition: Nutrition Category Date Time Status Pureed [Dysphagia/Modified Consistency Diet] [DIET] Diets 01/06/18 Lunch Active Attending/Attestation - Attestation I have personally seen and examined this patient.: Yes I have fully participated in the care of the patient.: Yes I have reviewed all pertinent clinical information: Yes Notes (Text): 01/07/18 17:56 patient seen and examined in the intensive care unit. Case discussed with house staff in the morning patient is awake and responsive with left-sided weakness Hypertonic saline running Per neuro keep sodium between 145-150 and serum osmolality below [address] demonstrates no significant changes patient started on Depakote and seraquil by neurology
--- NOTE | 2018-01-07 11:57 | CP.PCM.PN ---
Subjective - Date & Time of Evaluation Date of Evaluation: 01/07/18 Time of Evaluation: 11:15 - Subjective Subjective: Patient was seen and examined by me earlier in the morning. Her daughter (Renetta Lobato) and POA was also at bedside. The patient had a lot of questions. To help answer their questions I louis out on a piece of paper a very simple picture of the brain of where the stroke was as well as why she has the left body weakness. Also they had questions about why she has needed so many head CTs and I louis out in the picture that there was swelling and how it is pushing and edema etc. I think that helped the patient and family understand the situation. Currently still on the slow hypertonic IVF, remains on the plavix and ASA for now. Objective - Vital Signs/Intake and Output Vital Signs (last 24 hours): Temp Pulse Resp BP Pulse Ox 98.1 F 94 H 17 148/87 98 01/07/18 08:00 01/07/18 10:01 01/07/18 10:01 01/07/18 10:01 01/07/18 10:01 Intake and Output: 01/07/18 01/07/18 06:59 18:59 Intake Total 820 450 Output Total 500 Balance 320 450 - Medications Medications: Current Medications Acetaminophen/Codeine Phosphate (Tylenol/Codeine 300 Mg/30 Mg) 1 ea PO Q4 PRN PRN Reason: Headache Last Admin: 01/07/18 06:35 Dose: 1 ea Aspirin (Aspirin Chewable) 81 mg NG DAILY [facility] Last Admin: 01/06/18 09:49 Dose: 81 mg Clopidogrel Bisulfate (Plavix) 75 mg NG DAILY [facility] Last Admin: 01/06/18 09:49 Dose: 75 mg Famotidine (Pepcid) 20 mg IVP Q12 [facility] Last Admin: 01/07/18 09:17 Dose: 20 mg Hydralazine HCl (Apresoline) 10 mg IVP Q6H PRN PRN Reason: SBP>160 Last Admin: 01/07/18 06:35 Dose: 10 mg Folic Acid 1 mg/ Sodium (Chloride) 100.2 mls @ 60 mls/hr IV DAILY [facility] Last Admin: 01/07/18 09:59 Dose: 60 mls/hr Valproate Sodium 500 mg/ (Sodium Chloride) 105 mls @ 0 mls/hr IVPB Q12 [facility] PRN Reason: Per Protocol Last Admin: 01/07/18 09:54 Dose: 500 mls/hr Sodium Chloride (Hypertonic Saline 3%) 500 mls @ 50 mls/hr IV .Q10H ONE Stop: 01/07/18 19:59 Last Admin: 01/07/18 10:00 Dose: 50 mls/hr Lorazepam (Ativan) 1 mg IVP Q6H PRN PRN Reason: Anxiety Last Admin: 01/05/18 15:45 Dose: 1 mg Quetiapine Fumarate (Seroquel) 25 mg PO DAILY [facility] Rosuvastatin Calcium (Crestor) 5 mg PO HS [facility] Last Admin: 01/06/18 22:00 Dose: 5 mg - Labs Labs: 01/07/18 06:04 01/07/18 06:04 PT 12.2 SECONDS (9.7-12.2) 01/04/18 11:43 INR 1.1 01/04/18 11:43 APTT 26 SECONDS (21-34) 01/04/18 11:43 - Constitutional Appears: Agitated, Chronically Ill - Eye Exam Eye Exam: absent: EOMI, Normal appearance Pupil Exam: Unequal Additional comments: Cannot move eyes to the right. Also the left pupil is again slow to light reaction - ENT Exam Additional comments: central line - Respiratory Exam Respiratory Exam: Clear to Ausculation Bilateral, NORMAL BREATHING PATTERN - Cardiovascular Exam Cardiovascular Exam: REGULAR RHYTHM - GI/Abdominal Exam GI & Abdominal Exam: Soft. 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 01/07: Repeat CT scans have not shown hemmorage. There is still a midline shift that 2 to 3 mm. On slow hypertonic saline 01/06/2018: Patient remains on slow IVF hypertonic saline. She underwent MRI and besides the CVA she had it also is reported as questionable hemorrhage seen. Per neurology we are getting a new CT of the head and decide if need to stop the ASA and Plavix. The echo returned, EF is 55 to 60% 01/05/2018: The second head CT at 23:00 showed midline shifting from right to left. She was given hypertonic saline. The third CT this morning done at 8:30 again shows the the midline shift, to my very untrained eyes it looked not as severe as the second CT. Nevertheless from what I understand ICU is continuing with the hypertonic saline. I also had a very long discussion with the patient's family at bedside and told them that she may need neurosurgical intervention to relieve the pressure that was seen. Later today for MRI, echo. She had NGT removed earlier this morning for swallow eval. She is on Plavix and Crestor. This might need to be placed back in again depending on swallow eval. - CT 01/07: Again shows the CVA involing the LAURI and MCA area. No bleeding. 2-3 mm midline shift. No signifigant change - CT 1:30 AM 01/04 - large hypodensity at the right brain suggestive of acute right MCA territory infarction - CT @ 12:30: there is mass affect now a 3 mm left shift - CT @ 8:00 AM showed the right MCA/LAURI area with mass effect and compreesion with right to left midline shoft - Dr. Castillo, neurology consulted help appreciated: not a TPA candidate - out of time window - NIHSS - 17 - Neuro checks Q1hour, BP checks Q15 min (will intervene if bp exceed 210/110) - Elevate head of bed to 30 degrees, aspiration precautions - will follow up repeat CT in 12 hours to observe for progression and monitor for herniation - Head/Neck CTA - right coronary artyer disease 75-80% oclusion Heavy alcohol use 01/05/2018: Patient maybe a heavy alcohol user. She did not show signs of withdrawl this morning. Continue to monitor. Hyperlipidemia Tchol 210, Triglycerides 248, LDL 92, HDL 81 01/07: Remains on Plavix and Statin and ASA Prophylaxis Protonix 40mg IVP daily SCDs
[2018-01-07 18:04] LABS: BLOOD UREA NITROGEN 2 mg/dL (7-17); CALCIUM 8.3 mg/dl (8.6-10.4); GFR AFRICAN-AMERICAN > 60; GFR NON-AFRICAN AMERICAN > 60
[2018-01-08] MEDS: Acetaminophen-Codeine 300/30 mg Tab PO PRN ×2 (00:02→21:45)
[2018-01-08 04:33] LABS: BASO % 0.3 % (0.0-2.0); EOS # 0.1 K/uL (0.0-0.7); EOS % 0.8 % (0.0-4.0); HEMOGLOBIN 10.6 g/dL (11.0-16.0); LYMPH # 1.2 K/uL (1.0-4.3); LYMPH % 14.5 % (20.0-40.0); MEAN CELL VOLUME 97.1 fL (81.0-99.0); MEAN CORPUSCULAR HEMOGLOBIN 32.3 pg (27.0-31.0); MEAN CORPUSCULAR HGB CONC 33.3 g/dL (33.0-37.0); MEAN PLATELET VOLUME 7.9 fL (7.2-11.7); MONO # 0.7 K/uL (0.0-0.8); NEUT # 6.5 K/uL (1.8-7.0); NEUT % 76.4 % (50.0-75.0); RBC 3.28 Mil/uL (3.80-5.20); RED CELL DISTRIBUTION WIDTH 15.2 % (11.5-14.5); WHITE BLOOD COUNT 8.5 K/uL (4.8-10.8)
[2018-01-08 04:57] LABS: ALB/GLOB RATIO 0.9 (1.0-2.1); ALBUMIN 2.9 g/dL (3.5-5.0); ALT/SGPT 17 U/L (9-52); AST/SGOT 36 U/L (14-36); BILIRUBIN,DIRECT 0.4 mg/dL (0.0-0.4); BLOOD UREA NITROGEN 2 mg/dL (7-17); CALCIUM 8.4 mg/dl (8.6-10.4); GFR AFRICAN-AMERICAN > 60; GFR NON-AFRICAN AMERICAN > 60
--- NOTE | 2018-01-08 07:02 | CP.PCM.PN ---
Subjective - Date & Time of Evaluation Date of Evaluation: 01/08/18 Time of Evaluation: 06:56 - Subjective Subjective: Ms. Bui was seen and examined at the bedside in ICU. She remains alert, oriented and able to remember of stating wrong time earlier. She denies any headache, dizziness. She is able to follow simple commands and able to verbalize immediate needs to staff. She remains with left facial droop and left hemiplegia. She also has left side neglect. She has bilateral lower extremities SCD's. The CT scan done 01/07/2018 showed acute/subacute right frontotemporoparietal infarct. This involves both LAURI and MCA territory. There is no hemorrhage, There is 2-3 mm midline shift towards the left. There is no significant change from prior examination. There was no untoward events overnight. Objective - Vital Signs/Intake and Output Vital Signs (last 24 hours): Temp Pulse Resp BP Pulse Ox 98.7 F 100 H 20 129/73 97 01/08/18 04:00 01/08/18 06:00 01/08/18 06:00 01/08/18 06:01 01/08/18 06:00 Intake and Output: 01/07/18 01/08/18 18:59 06:59 Intake Total 1740 1680 Output Total 300 Balance 1440 1680 - Medications Medications: Current Medications Acetaminophen/Codeine Phosphate (Tylenol/Codeine 300 Mg/30 Mg) 1 ea PO Q4 PRN PRN Reason: Headache Last Admin: 01/08/18 00:02 Dose: 1 ea Aspirin (Aspirin Chewable) 81 mg NG DAILY [facility] Last Admin: 01/07/18 12:04 Dose: 81 mg Clopidogrel Bisulfate (Plavix) 75 mg NG DAILY [facility] Last Admin: 01/07/18 12:04 Dose: 75 mg Famotidine (Pepcid) 20 mg PO BID [facility] Last Admin: 01/07/18 23:26 Dose: 20 mg Hydralazine HCl (Apresoline) 10 mg IVP Q6H PRN PRN Reason: SBP>160 Last Admin: 01/08/18 01:06 Dose: 10 mg Folic Acid 1 mg/ Sodium (Chloride) 100.2 mls @ 60 mls/hr IV DAILY [facility] Last Admin: 01/07/18 09:59 Dose: 60 mls/hr Valproate Sodium 500 mg/ (Sodium Chloride) 105 mls @ 0 mls/hr IVPB Q12 [facility] PRN Reason: Per Protocol Last Admin: 01/07/18 22:41 Dose: 100 mls/hr Lorazepam (Ativan) 1 mg IVP Q6H PRN PRN Reason: Anxiety Last Admin: 01/08/18 03:34 Dose: 1 mg Quetiapine Fumarate (Seroquel) 25 mg PO DAILY [facility] Last Admin: 01/07/18 18:26 Dose: 25 mg Rosuvastatin Calcium (Crestor) 5 mg PO HS [facility] Last Admin: 01/07/18 22:43 Dose: 5 mg - Labs Labs: 01/08/18 04:30 01/08/18 04:30 PT 12.2 SECONDS (9.7-12.2) 01/04/18 11:43 INR 1.1 01/04/18 11:43 APTT 26 SECONDS (21-34) 01/04/18 11:43 - Constitutional Appears: No Acute Distress - Head Exam Head Exam: NORMAL INSPECTION - Eye Exam Pupil Exam: Irregular Additional comments: right eye - 2mm ( brisk) and left 3mm sluggish - Neurological Exam Neurological Exam: Alert, Awake Neuro motor strength exam: Left Upper Extremity: 0, Right Upper Extremity: 5, Left Lower Extremity: 0, Right Lower Extremity: 5 Additional comments: She is alert, oriented, able to follow simple commands. Sensation is asymmetrical adenike. in her left side. Assessment and Plan (1) CVA (cerebral vascular accident) Assessment & Plan: Case discussed with Dr. Jacob, continue all current medical, physical, occupational, and speech therapies. Recommend to treat any underlying electrolyte abnormalities and blood pressure control. Valproic level schedule heladio. Status: Acute
[2018-01-08] MEDS ORDERED: Potassium Chloride 20 mEq/15 ml LIQ UD PO ONE (08:00)
[2018-01-08] MEDS ORDERED: Sodium Chloride 3% 500 ML IV ONE (08:30)
[2018-01-08] MEDS: Valproate 500 MG in Sodium Chloride 0.9% 100 ML IVPB SCH ×2 (09:25→21:45)
--- NOTE | 2018-01-08 13:18 | CP.CCUPN ---
<Hesham Fragoso - Last Filed: 01/08/18 13:09> CCU Subjective - Physician Review Subjective (Free Text): 01/05/18 18:51 Patient seen and examined. Patient complaining of mild headache. Patient continues to have left sided weakness. 01/06/18 11:17 Patient seen and examined. Patient continues to complain of headache. Patient is also complaining of neck discomfort as well. She continues to have left sided weakness, although she has recovered some sensation on the left side now. 01/07/18 11:43 Patient seen and examined. Patient has continued left sided weakness. Patient is also feeling lethargic this morning after having been given medication overnight for agitation/confusion. 01/08/18 13:09 Patient seen and examined. Patient remains with left sided weakness. Patient continues to have intermittent headache likely also exacerbated by positioning of her neck when she sleeps. CCU Objective - Vital Signs / Intake & Output Vital Signs (Last 4 hours): Vital Signs Pulse Resp BP Pulse Ox 01/08/18 13:02 105 H 21 117/69 99 01/08/18 12:12 99 H 23 153/84 H 100 01/08/18 11:01 111 H 19 172/85 H 100 01/08/18 10:28 117 H 19 174/81 H Intake and Output (Last 8hrs): Intake & Output 01/07/18 01/08/18 01/08/18 22:59 06:59 14:59 Intake Total 1250 990 780 Output Total 300 250 Balance 950 990 530 Intake: Intake, IV Amount 650 600 430 Right Medial Port 450 600 225 Internal Jugular Right Proximal Port 200 205 Internal Jugular Oral 600 390 350 Output: Urine 300 250 Urine, Voided 300 250 Other: # Bowel Movements 1 - Physical Exam Head: Positive for: Atraumatic, Normocephalic Pupils: Positive for: PERRL Mouth: Positive for: Moist Mucous Membranes Neck: Positive for: Other (Right IJ TLC) Respiratory/Chest: Positive for: Clear to Auscultation. Negative for: Wheezes, Rales, Rhonchi Cardiovascular: Positive for: Regular Rate and Rhythm, Normal S1, S2 Abdomen: Positive for: Normal Bowel Sounds. Negative for: Tenderness, Distention Upper Extremity: Positive for: Normal Inspection Lower Extremity: Positive for: Normal Inspection Neurological: Positive for: GCS=15. Negative for: Motor Func Grossly Intact ( left sided weakness upper and lower extremities) Skin: Positive for: Warm, Dry Psychiatric: Positive for: Alert, Oriented x 3 - Medications Active Medications: Active Medications Generic Name Dose Route Start Last Admin Trade Name Freq PRN Reason Stop Dose Admin Acetaminophen/Codeine Phosphate 1 ea 01/04/18 23:44 01/08/18 00:02 Tylenol/Codeine 300 Mg/30 Mg PO 1 ea Q4 PRN Administration Headache Amlodipine Besylate 10 mg 01/08/18 10:00 01/08/18 10:56 Norvasc PO 10 mg DAILY REYNALDO Administration Aspirin 81 mg 01/05/18 09:00 01/08/18 09:40 Aspirin Chewable NG 81 mg DAILY REYNALDO Administration Clopidogrel Bisulfate 75 mg 01/05/18 09:00 01/08/18 09:40 Plavix NG 75 mg DAILY REYNALDO Administration Famotidine 20 mg 01/07/18 22:30 01/08/18 09:40 Pepcid PO 20 mg BID REYNALDO Administration Heparin Sodium (Porcine) 5,000 units 01/08/18 11:00 01/08/18 10:32 Heparin SC 5,000 units Q12H REYNALDO Administration Hydralazine HCl 10 mg 01/06/18 18:26 01/08/18 09:44 Apresoline IVP 10 mg Q6H PRN Administration SBP>160 Folic Acid 1 mg/ Sodium 100.2 mls @ 60 mls/hr 01/05/18 10:00 01/08/18 09:28 Chloride IV 60 mls/hr DAILY REYNALDO Administration Valproate Sodium 500 mg/ 105 mls @ 0 mls/hr 01/07/18 06:39 01/08/18 09:25 Sodium Chloride IVPB 105 mls/hr Q12 REYNALDO Administration Per Protocol Sodium Chloride 500 mls @ 75 mls/hr 01/08/18 08:30 01/08/18 08:00 Hypertonic Saline 3% IV 01/08/18 15:09 75 mls/hr .Q6H40M ONE Administration Lorazepam 1 mg 01/04/18 13:38 01/08/18 03:34 Ativan IVP 1 mg Q6H PRN Administration Anxiety Quetiapine Fumarate 25 mg 01/07/18 17:00 01/08/18 09:40 Seroquel PO 25 mg DAILY REYNALDO Administration Rosuvastatin Calcium 5 mg 01/04/18 22:00 01/07/18 22:43 Crestor PO 5 mg HS REYNALDO Administration - Patient Studies Lab Studies: Lab Studies 01/08/18 01/08/18 01/08/18 Range/Units 11:20 07:17 04:30 WBC 8.5 (4.8-10.8) K/uL RBC 3.28 L (3.80-5.20) Mil/uL Hgb 10.6 L (11.0-16.0) g/dL Hct 31.8 L (34.0-47.0) % MCV 97.1 (81.0-99.0) fL MCH 32.3 H (27.0-31.0) pg MCHC 33.3 (33.0-37.0) g/dL RDW 15.2 H (11.5-14.5) % Plt Count 199 (130-400) K/uL MPV 7.9 (7.2-11.7) fL Neut % (Auto) 76.4 H (50.0-75.0) % Lymph % (Auto) 14.5 L (20.0-40.0) % [place] % (Auto) 8.0 (0.0-10.0) % Eos % (Auto) 0.8 (0.0-4.0) % Baso % (Auto) 0.3 (0.0-2.0) % Neut # (Auto) 6.5 (1.8-7.0) K/uL Lymph # (Auto) 1.2 (1.0-4.3) K/uL [place] # (Auto) 0.7 (0.0-0.8) K/uL Eos # (Auto) 0.1 (0.0-0.7) K/uL Baso # (Auto) 0.0 (0.0-0.2) K/uL Sodium (132-148) mmol/L Potassium (3.6-5.2) mmol/L Chloride (98-107) mmol/L Carbon Dioxide (22-30) mmol/L Anion Gap (10-20) BUN (7-17) mg/dL Creatinine (0.7-1.2) mg/dL Est GFR ( Amer) Est GFR (Non-Af Amer) POC Glucose (mg/dL) 114 H 101 (65-110) mg/dL Random Glucose (65-105) mg/dL Serum Osmolality (272-300) mosm/kg Calcium (8.6-10.4) mg/dl Phosphorus (2.5-4.5) mg/dL Magnesium (1.6-2.3) mg/dL Total Bilirubin (0.2-1.3) mg/dL Direct Bilirubin (0.0-0.4) mg/dL AST (14-36) U/L ALT (9-52) U/L Alkaline Phosphatase (38-126) U/L Total Protein (6.3-8.3) g/dL Albumin (3.5-5.0) g/dL Globulin (2.2-3.9) gm/dL Albumin/Globulin Ratio (1.0-2.1) 01/08/18 01/07/18 01/07/18 Range/Units 04:30 17:48 17:48 WBC (4.8-10.8) K/uL RBC (3.80-5.20) Mil/uL Hgb (11.0-16.0) g/dL Hct (34.0-47.0) % MCV (81.0-99.0) fL MCH (27.0-31.0) pg MCHC (33.0-37.0) g/dL RDW (11.5-14.5) % Plt Count (130-400) K/uL MPV (7.2-11.7) fL Neut % (Auto) (50.0-75.0) % Lymph % (Auto) (20.0-40.0) % [place] % (Auto) (0.0-10.0) % Eos % (Auto) (0.0-4.0) % Baso % (Auto) (0.0-2.0) % Neut # (Auto) (1.8-7.0) K/uL Lymph # (Auto) (1.0-4.3) K/uL [place] # (Auto) (0.0-0.8) K/uL Eos # (Auto) (0.0-0.7) K/uL Baso # (Auto) (0.0-0.2) K/uL Sodium 143 140 (132-148) mmol/L Potassium 3.5 L 3.5 L (3.6-5.2) mmol/L Chloride 111 H 109 H (98-107) mmol/L Carbon Dioxide 23 23 (22-30) mmol/L Anion Gap 12 12 (10-20) BUN 2 L 2 L (7-17) mg/dL Creatinine 0.5 L 0.6 L (0.7-1.2) mg/dL Est GFR ( Amer) > 60 > 60 Est GFR (Non-Af Amer) > 60 > 60 POC Glucose (mg/dL) (65-110) mg/dL Random Glucose 93 130 H (65-105) mg/dL Serum Osmolality 294 (272-300) mosm/kg Calcium 8.4 L 8.3 L (8.6-10.4) mg/dl Phosphorus 3.4 (2.5-4.5) mg/dL Magnesium 1.9 (1.6-2.3) mg/dL Total Bilirubin 0.5 (0.2-1.3) mg/dL Direct Bilirubin 0.4 (0.0-0.4) mg/dL AST 36 (14-36) U/L ALT 17 (9-52) U/L Alkaline Phosphatase 70 (38-126) U/L Total Protein 6.2 L (6.3-8.3) g/dL Albumin 2.9 L (3.5-5.0) g/dL Globulin 3.3 (2.2-3.9) gm/dL Albumin/Globulin Ratio 0.9 L (1.0-2.1) 01/07/18 Range/Units 15:57 WBC (4.8-10.8) K/uL RBC (3.80-5.20) Mil/uL Hgb (11.0-16.0) g/dL Hct (34.0-47.0) % MCV (81.0-99.0) fL MCH (27.0-31.0) pg MCHC (33.0-37.0) g/dL RDW (11.5-14.5) % Plt Count (130-400) K/uL MPV (7.2-11.7) fL Neut % (Auto) (50.0-75.0) % Lymph % (Auto) (20.0-40.0) % [place] % (Auto) (0.0-10.0) % Eos % (Auto) (0.0-4.0) % Baso % (Auto) (0.0-2.0) % Neut # (Auto) (1.8-7.0) K/uL Lymph # (Auto) (1.0-4.3) K/uL [place] # (Auto) (0.0-0.8) K/uL Eos # (Auto) (0.0-0.7) K/uL Baso # (Auto) (0.0-0.2) K/uL Sodium (132-148) mmol/L Potassium (3.6-5.2) mmol/L Chloride (98-107) mmol/L Carbon Dioxide (22-30) mmol/L Anion Gap (10-20) BUN (7-17) mg/dL Creatinine (0.7-1.2) mg/dL Est GFR ( Amer) Est GFR (Non-Af Amer) POC Glucose (mg/dL) 119 H (65-110) mg/dL Random Glucose (65-105) mg/dL Serum Osmolality (272-300) mosm/kg Calcium (8.6-10.4) mg/dl Phosphorus (2.5-4.5) mg/dL Magnesium (1.6-2.3) mg/dL Total Bilirubin (0.2-1.3) mg/dL Direct Bilirubin (0.0-0.4) mg/dL AST (14-36) U/L ALT (9-52) U/L Alkaline Phosphatase (38-126) U/L Total Protein (6.3-8.3) g/dL Albumin (3.5-5.0) g/dL Globulin (2.2-3.9) gm/dL Albumin/Globulin Ratio (1.0-2.1) Laboratory Results - last 24 hr 01/07/18 01/07/18 01/07/18 15:57 17:48 17:48 WBC RBC Hgb Hct MCV MCH MCHC RDW Plt Count MPV Neut % (Auto) Lymph % (Auto) [place] % (Auto) Eos % (Auto) Baso % (Auto) Neut # (Auto) Lymph # (Auto) [place] # (Auto) Eos # (Auto) Baso # (Auto) Sodium 140 Potassium 3.5 L Chloride 109 H Carbon Dioxide 23 Anion Gap 12 BUN 2 L Creatinine 0.6 L Est GFR ( Amer) > 60 Est GFR (Non-Af Amer) > 60 POC Glucose (mg/dL) 119 H Random Glucose 130 H Serum Osmolality 294 Calcium 8.3 L Phosphorus Magnesium Total Bilirubin Direct Bilirubin AST ALT Alkaline Phosphatase Total Protein Albumin Globulin Albumin/Globulin Ratio 01/08/18 01/08/18 01/08/18 04:30 04:30 07:17 WBC 8.5 RBC 3.28 L Hgb 10.6 L Hct 31.8 L MCV 97.1 MCH 32.3 H MCHC 33.3 RDW 15.2 H Plt Count 199 MPV 7.9 Neut % (Auto) 76.4 H Lymph % (Auto) 14.5 L [place] % (Auto) 8.0 Eos % (Auto) 0.8 Baso % (Auto) 0.3 Neut # (Auto) 6.5 Lymph # (Auto) 1.2 [place] # (Auto) 0.7 Eos # (Auto) 0.1 Baso # (Auto) 0.0 Sodium 143 Potassium 3.5 L Chloride 111 H Carbon Dioxide 23 Anion Gap 12 BUN 2 L Creatinine 0.5 L Est GFR ( Amer) > 60 Est GFR (Non-Af Amer) > 60 POC Glucose (mg/dL) 101 Random Glucose 93 Serum Osmolality Calcium 8.4 L Phosphorus 3.4 Magnesium 1.9 Total Bilirubin 0.5 Direct Bilirubin 0.4 AST 36 ALT 17 Alkaline Phosphatase 70 Total Protein 6.2 L Albumin 2.9 L Globulin 3.3 Albumin/Globulin Ratio 0.9 L 01/08/18 11:20 WBC RBC Hgb Hct MCV MCH MCHC RDW Plt Count MPV Neut % (Auto) Lymph % (Auto) [place] % (Auto) Eos % (Auto) Baso % (Auto) Neut # (Auto) Lymph # (Auto) [place] # (Auto) Eos # (Auto) Baso # (Auto) Sodium Potassium Chloride Carbon Dioxide Anion Gap BUN Creatinine Est GFR ( Amer) Est GFR (Non-Af Amer) POC Glucose (mg/dL) 114 H Random Glucose Serum Osmolality Calcium Phosphorus Magnesium Total Bilirubin Direct Bilirubin AST ALT Alkaline Phosphatase Total Protein Albumin Globulin Albumin/Globulin Ratio Fingerstick Blood Sugar Results: 101 Critical Care Progress Note - Nutrition Nutrition: Nutrition Category Date Time Status Pureed [Dysphagia/Modified Consistency Diet] [DIET] Diets 01/06/18 Lunch Active Assessment/Plan - Assessment and Plan (Free Text) Assessment: This is a 57 year old female with no significant PMHx who presented with left sided weakness. 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 There are early signs of hemorrhagic conversion per MRI. Serial repeat head CT demonstrates no significant changes in midline shift. Neuro Neurology on consult Hypertonic saline discontinued The repeat head CT's have shown no significant changes in midline shift. f/u further neurology recommendations Cardio May gradually reduce the BP Hydralazine 10 mg IV Q6 prn Norvasc 10 mg PO daily Will add HCTZ if needed later Crestor 5 HS Pulm saturating well GI Pureed diet Pepcid 20 mg PO BID Heme/onc Bilateral LE dopplers negative preliminary Prophylaxis Pepcid Heparin SC Q12H Right IJ TLC placed on 01/05/[address] Davis <Rony Davis - Last Filed: 01/08/18 15:18> CCU Objective - Vital Signs / Intake & Output Vital Signs (Last 4 hours): Vital Signs Temp Pulse Resp BP Pulse Ox 01/08/18 14:01 100 H 19 109/65 99 01/08/18 13:02 105 H 21 117/69 99 01/08/18 12:12 99 H 23 153/84 H 100 01/08/18 12:00 98.8 F 98 01/08/18 11:01 111 H 19 172/85 H 100 01/08/18 10:28 117 H 19 174/81 H Intake and Output (Last 8hrs): Intake & Output 01/07/18 01/08/18 01/08/18 22:59 06:59 14:59 Intake Total 1250 990 880 Output Total 300 250 Balance 950 990 630 Intake: Intake, IV Amount 650 600 430 Right Medial Port 450 600 225 Internal Jugular Right Proximal Port 200 205 Internal Jugular Oral 600 390 450 Output: Urine 300 250 Urine, Voided 300 250 Other: # Bowel Movements 1 - Medications Active Medications: Active Medications Generic Name Dose Route Start Last Admin Trade Name Freq PRN Reason Stop Dose Admin Acetaminophen/Codeine Phosphate 1 ea 01/04/18 23:44 01/08/18 00:02 Tylenol/Codeine 300 Mg/30 Mg PO 1 ea Q4 PRN Administration Headache Amlodipine Besylate 10 mg 01/08/18 10:00 01/08/18 10:56 Norvasc PO 10 mg DAILY REYNALDO Administration Aspirin 81 mg 01/05/18 09:00 01/08/18 09:40 Aspirin Chewable NG 81 mg DAILY REYNALDO Administration Clopidogrel Bisulfate 75 mg 01/05/18 09:00 01/08/18 09:40 Plavix NG 75 mg DAILY REYNALDO Administration Famotidine 20 mg 01/07/18 22:30 01/08/18 09:40 Pepcid PO 20 mg BID REYNALDO Administration Heparin Sodium (Porcine) 5,000 units 01/08/18 11:00 01/08/18 10:32 Heparin SC 5,000 units Q12H REYNALDO Administration Hydralazine HCl 10 mg 01/06/18 18:26 01/08/18 09:44 Apresoline IVP 10 mg Q6H PRN Administration SBP>160 Folic Acid 1 mg/ Sodium 100.2 mls @ 60 mls/hr 01/05/18 10:00 01/08/18 09:28 Chloride IV 60 mls/hr DAILY REYNALDO Administration Valproate Sodium 500 mg/ 105 mls @ 0 mls/hr 01/07/18 06:39 01/08/18 09:25 Sodium Chloride IVPB 105 mls/hr Q12 REYNALDO Administration Per Protocol Sodium Chloride 500 mls @ 75 mls/hr 01/08/18 08:30 01/08/18 08:00 Hypertonic Saline 3% IV 01/08/18 15:09 75 mls/hr .Q6H40M ONE Administration Lorazepam 1 mg 01/04/18 13:38 01/08/18 03:34 Ativan IVP 1 mg Q6H PRN Administration Anxiety Quetiapine Fumarate 25 mg 01/07/18 17:00 01/08/18 09:40 Seroquel PO 25 mg DAILY REYNALDO Administration Rosuvastatin Calcium 5 mg 01/04/18 22:00 01/07/18 22:43 Crestor PO 5 mg HS REYNALDO Administration - Patient Studies Lab Studies: Lab Studies 01/08/18 01/08/18 01/08/18 Range/Units 11:20 07:17 04:30 WBC 8.5 (4.8-10.8) K/uL RBC 3.28 L (3.80-5.20) Mil/uL Hgb 10.6 L (11.0-16.0) g/dL Hct 31.8 L (34.0-47.0) % MCV 97.1 (81.0-99.0) fL MCH 32.3 H (27.0-31.0) pg MCHC 33.3 (33.0-37.0) g/dL RDW 15.2 H (11.5-14.5) % Plt Count 199 (130-400) K/uL MPV 7.9 (7.2-11.7) fL Neut % (Auto) 76.4 H (50.0-75.0) % Lymph % (Auto) 14.5 L (20.0-40.0) % [place] % (Auto) 8.0 (0.0-10.0) % Eos % (Auto) 0.8 (0.0-4.0) % Baso % (Auto) 0.3 (0.0-2.0) % Neut # (Auto) 6.5 (1.8-7.0) K/uL Lymph # (Auto) 1.2 (1.0-4.3) K/uL [place] # (Auto) 0.7 (0.0-0.8) K/uL Eos # (Auto) 0.1 (0.0-0.7) K/uL Baso # (Auto) 0.0 (0.0-0.2) K/uL Sodium (132-148) mmol/L Potassium (3.6-5.2) mmol/L Chloride (98-107) mmol/L Carbon Dioxide (22-30) mmol/L Anion Gap (10-20) BUN (7-17) mg/dL Creatinine (0.7-1.2) mg/dL Est GFR ( Amer) Est GFR (Non-Af Amer) POC Glucose (mg/dL) 114 H 101 (65-110) mg/dL Random Glucose (65-105) mg/dL Serum Osmolality (272-300) mosm/kg Calcium (8.6-10.4) mg/dl Phosphorus (2.5-4.5) mg/dL Magnesium (1.6-2.3) mg/dL Total Bilirubin (0.2-1.3) mg/dL Direct Bilirubin (0.0-0.4) mg/dL AST (14-36) U/L ALT (9-52) U/L Alkaline Phosphatase (38-126) U/L Total Protein (6.3-8.3) g/dL Albumin (3.5-5.0) g/dL Globulin (2.2-3.9) gm/dL Albumin/Globulin Ratio (1.0-2.1) 01/08/18 01/07/18 01/07/18 Range/Units 04:30 17:48 17:48 WBC (4.8-10.8) K/uL RBC (3.80-5.20) Mil/uL Hgb (11.0-16.0) g/dL Hct (34.0-47.0) % MCV (81.0-99.0) fL MCH (27.0-31.0) pg MCHC (33.0-37.0) g/dL RDW (11.5-14.5) % Plt Count (130-400) K/uL MPV (7.2-11.7) fL Neut % (Auto) (50.0-75.0) % Lymph % (Auto) (20.0-40.0) % [place] % (Auto) (0.0-10.0) % Eos % (Auto) (0.0-4.0) % Baso % (Auto) (0.0-2.0) % Neut # (Auto) (1.8-7.0) K/uL Lymph # (Auto) (1.0-4.3) K/uL [place] # (Auto) (0.0-0.8) K/uL Eos # (Auto) (0.0-0.7) K/uL Baso # (Auto) (0.0-0.2) K/uL Sodium 143 140 (132-148) mmol/L Potassium 3.5 L 3.5 L (3.6-5.2) mmol/L Chloride 111 H 109 H (98-107) mmol/L Carbon Dioxide 23 23 (22-30) mmol/L Anion Gap 12 12 (10-20) BUN 2 L 2 L (7-17) mg/dL Creatinine 0.5 L 0.6 L (0.7-1.2) mg/dL Est GFR ( Amer) > 60 > 60 Est GFR (Non-Af Amer) > 60 > 60 POC Glucose (mg/dL) (65-110) mg/dL Random Glucose 93 130 H (65-105) mg/dL Serum Osmolality 294 (272-300) mosm/kg Calcium 8.4 L 8.3 L (8.6-10.4) mg/dl Phosphorus 3.4 (2.5-4.5) mg/dL Magnesium 1.9 (1.6-2.3) mg/dL Total Bilirubin 0.5 (0.2-1.3) mg/dL Direct Bilirubin 0.4 (0.0-0.4) mg/dL AST 36 (14-36) U/L ALT 17 (9-52) U/L Alkaline Phosphatase 70 (38-126) U/L Total Protein 6.2 L (6.3-8.3) g/dL Albumin 2.9 L (3.5-5.0) g/dL Globulin 3.3 (2.2-3.9) gm/dL Albumin/Globulin Ratio 0.9 L (1.0-2.1) 01/07/18 Range/Units 15:57 WBC (4.8-10.8) K/uL RBC (3.80-5.20) Mil/uL Hgb (11.0-16.0) g/dL Hct (34.0-47.0) % MCV (81.0-99.0) fL MCH (27.0-31.0) pg MCHC (33.0-37.0) g/dL RDW (11.5-14.5) % Plt Count (130-400) K/uL MPV (7.2-11.7) fL Neut % (Auto) (50.0-75.0) % Lymph % (Auto) (20.0-40.0) % [place] % (Auto) (0.0-10.0) % Eos % (Auto) (0.0-4.0) % Baso % (Auto) (0.0-2.0) % Neut # (Auto) (1.8-7.0) K/uL Lymph # (Auto) (1.0-4.3) K/uL [place] # (Auto) (0.0-0.8) K/uL Eos # (Auto) (0.0-0.7) K/uL Baso # (Auto) (0.0-0.2) K/uL Sodium (132-148) mmol/L Potassium (3.6-5.2) mmol/L Chloride (98-107) mmol/L Carbon Dioxide (22-30) mmol/L Anion Gap (10-20) BUN (7-17) mg/dL Creatinine (0.7-1.2) mg/dL Est GFR ( Amer) Est GFR (Non-Af Amer) POC Glucose (mg/dL) 119 H (65-110) mg/dL Random Glucose (65-105) mg/dL Serum Osmolality (272-300) mosm/kg Calcium (8.6-10.4) mg/dl Phosphorus (2.5-4.5) mg/dL Magnesium (1.6-2.3) mg/dL Total Bilirubin (0.2-1.3) mg/dL Direct Bilirubin (0.0-0.4) mg/dL AST (14-36) U/L ALT (9-52) U/L Alkaline Phosphatase (38-126) U/L Total Protein (6.3-8.3) g/dL Albumin (3.5-5.0) g/dL Globulin (2.2-3.9) gm/dL Albumin/Globulin Ratio (1.0-2.1) Laboratory Results - last 24 hr 01/07/18 01/07/18 01/07/18 15:57 17:48 17:48 WBC RBC Hgb Hct MCV MCH MCHC RDW Plt Count MPV Neut % (Auto) Lymph % (Auto) [place] % (Auto) Eos % (Auto) Baso % (Auto) Neut # (Auto) Lymph # (Auto) [place] # (Auto) Eos # (Auto) Baso # (Auto) Sodium 140 Potassium 3.5 L Chloride 109 H Carbon Dioxide 23 Anion Gap 12 BUN 2 L Creatinine 0.6 L Est GFR ( Amer) > 60 Est GFR (Non-Af Amer) > 60 POC Glucose (mg/dL) 119 H Random Glucose 130 H Serum Osmolality 294 Calcium 8.3 L Phosphorus Magnesium Total Bilirubin Direct Bilirubin AST ALT Alkaline Phosphatase Total Protein Albumin Globulin Albumin/Globulin Ratio 01/08/18 01/08/18 01/08/18 04:30 04:30 07:17 WBC 8.5 RBC 3.28 L Hgb 10.6 L Hct 31.8 L MCV 97.1 MCH 32.3 H MCHC 33.3 RDW 15.2 H Plt Count 199 MPV 7.9 Neut % (Auto) 76.4 H Lymph % (Auto) 14.5 L [place] % (Auto) 8.0 Eos % (Auto) 0.8 Baso % (Auto) 0.3 Neut # (Auto) 6.5 Lymph # (Auto) 1.2 [place] # (Auto) 0.7 Eos # (Auto) 0.1 Baso # (Auto) 0.0 Sodium 143 Potassium 3.5 L Chloride 111 H Carbon Dioxide 23 Anion Gap 12 BUN 2 L Creatinine 0.5 L Est GFR ( Amer) > 60 Est GFR (Non-Af Amer) > 60 POC Glucose (mg/dL) 101 Random Glucose 93 Serum Osmolality Calcium 8.4 L Phosphorus 3.4 Magnesium 1.9 Total Bilirubin 0.5 Direct Bilirubin 0.4 AST 36 ALT 17 Alkaline Phosphatase 70 Total Protein 6.2 L Albumin 2.9 L Globulin 3.3 Albumin/Globulin Ratio 0.9 L 01/08/18 11:20 WBC RBC Hgb Hct MCV MCH MCHC RDW Plt Count MPV Neut % (Auto) Lymph % (Auto) [place] % (Auto) Eos % (Auto) Baso % (Auto) Neut # (Auto) Lymph # (Auto) [place] # (Auto) Eos # (Auto) Baso # (Auto) Sodium Potassium Chloride Carbon Dioxide Anion Gap BUN Creatinine Est GFR ( Amer) Est GFR (Non-Af Amer) POC Glucose (mg/dL) 114 H Random Glucose Serum Osmolality Calcium Phosphorus Magnesium Total Bilirubin Direct Bilirubin AST ALT Alkaline Phosphatase Total Protein Albumin Globulin Albumin/Globulin Ratio Critical Care Progress Note - Nutrition Nutrition: Nutrition Category Date Time Status Pureed [Dysphagia/Modified Consistency Diet] [DIET] Diets 01/06/18 Lunch Active Attending/Attestation - Attestation I have personally seen and examined this patient.: Yes I have fully participated in the care of the patient.: Yes I have reviewed all pertinent clinical information: Yes Notes (Text): 01/08/18 14:16 I have seen and examined the patient. Medical records, lab studies, and imaging were reviewed by me and a management plan was formulated on multidisciplinary rounds with resident Dr. Fragoso. I agree with their documented assessment and plan. Patient still has dense left sided hemiparesis, no dramatic improvements. Stopping hypertonic saline, starting DVT prophylaxis. Critical Care Time 35 minutes. Multi-disciplinary rounds were performed with house staff, nursing, speech therapy, respiratory therapy, pharmacy and nutrition with integrated input from the primary team/attending and other consulting services. The documented time is cumulative and includes review of patient data/exams/labs/chart review and examination of the patient on rounds and throughout the day; time is exclusive of any procedures or teaching time.
--- NOTE | 2018-01-08 18:30 | CP.PCM.PN ---
Subjective - Date & Time of Evaluation Date of Evaluation: 01/08/18 Time of Evaluation: 18:27 - Subjective Subjective: patient aao confused slightly has some neglect of left side Objective - Vital Signs/Intake and Output Vital Signs (last 24 hours): Temp Pulse Resp BP Pulse Ox 97.6 F 108 H 18 149/80 100 01/08/18 16:00 01/08/18 18:01 01/08/18 18:01 01/08/18 18:01 01/08/18 18:01 Intake and Output: 01/08/18 01/08/18 06:59 18:59 Intake Total 1680 1275 Output Total 800 Balance 1680 475 - Medications Medications: Current Medications Acetaminophen/Codeine Phosphate (Tylenol/Codeine 300 Mg/30 Mg) 1 ea PO Q4 PRN PRN Reason: Headache Last Admin: 01/08/18 00:02 Dose: 1 ea Amlodipine Besylate (Norvasc) 10 mg PO DAILY [facility] Last Admin: 01/08/18 10:56 Dose: 10 mg Ascorbic Acid (Vitamin C 500 Mg Tab) 500 mg PO DAILY [facility] Aspirin (Aspirin Chewable) 81 mg NG DAILY [facility] Last Admin: 01/08/18 09:40 Dose: 81 mg Clopidogrel Bisulfate (Plavix) 75 mg NG DAILY [facility] Last Admin: 01/08/18 09:40 Dose: 75 mg Famotidine (Pepcid) 20 mg PO BID [facility] Last Admin: 01/08/18 17:28 Dose: 20 mg Fluoxetine HCl (Prozac) 20 mg PO DAILY [facility] Stop: 02/07/18 18:14 Heparin Sodium (Porcine) (Heparin) 5,000 units SC Q12H [facility] Last Admin: 01/08/18 10:32 Dose: 5,000 units Hydralazine HCl (Apresoline) 10 mg IVP Q6H PRN PRN Reason: SBP>160 Last Admin: 01/08/18 09:44 Dose: 10 mg Folic Acid 1 mg/ Sodium (Chloride) 100.2 mls @ 60 mls/hr IV DAILY [facility] Last Admin: 01/08/18 09:28 Dose: 60 mls/hr Valproate Sodium 500 mg/ (Sodium Chloride) 105 mls @ 0 mls/hr IVPB Q12 [facility] PRN Reason: Per Protocol Last Admin: 01/08/18 09:25 Dose: 105 mls/hr Lorazepam (Ativan) 1 mg IVP Q6H PRN PRN Reason: Anxiety Last Admin: 01/08/18 03:34 Dose: 1 mg Quetiapine Fumarate (Seroquel) 25 mg PO DAILY [facility] Last Admin: 01/08/18 09:40 Dose: 25 mg Rosuvastatin Calcium (Crestor) 5 mg PO HS [facility] Last Admin: 01/07/18 22:43 Dose: 5 mg Zinc Sulfate (Zinc Sulfate 220 Mg Cap) 220 mg PO DAILY [facility] - Labs Labs: 01/08/18 04:30 01/08/18 04:30 PT 12.2 SECONDS (9.7-12.2) 01/04/18 11:43 INR 1.1 01/04/18 11:43 APTT 26 SECONDS (21-34) 01/04/18 11:43 - Constitutional Appears: Non-toxic, No Acute Distress - Head Exam Head Exam: ATRAUMATIC - Eye Exam Eye Exam: Normal appearance - ENT Exam ENT Exam: Mucous Membranes Dry - Respiratory Exam Respiratory Exam: Clear to Ausculation Bilateral, NORMAL BREATHING PATTERN - Cardiovascular Exam Cardiovascular Exam: REGULAR RHYTHM, +S1, +S2 - GI/Abdominal Exam GI & Abdominal Exam: Soft, Normal Bowel Sounds. 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
[2018-01-09 06:25] LABS: BASO % 0.2 % (0.0-2.0); EOS # 0.1 K/uL (0.0-0.7); EOS % 1.1 % (0.0-4.0); HEMOGLOBIN 9.7 g/dL (11.0-16.0); LYMPH # 1.2 K/uL (1.0-4.3); LYMPH % 16.9 % (20.0-40.0); MEAN CELL VOLUME 96.4 fL (81.0-99.0); MEAN CORPUSCULAR HEMOGLOBIN 33.1 pg (27.0-31.0); MEAN CORPUSCULAR HGB CONC 34.3 g/dL (33.0-37.0); MONO # 0.7 K/uL (0.0-0.8); MONO % 10.3 % (0.0-10.0); NEUT % 71.5 % (50.0-75.0); RBC 2.94 Mil/uL (3.80-5.20); RED CELL DISTRIBUTION WIDTH 15.3 % (11.5-14.5)
[2018-01-09 06:56] LABS: BLOOD UREA NITROGEN 2 mg/dL (7-17); GFR AFRICAN-AMERICAN > 60; GFR NON-AFRICAN AMERICAN > 60
[2018-01-09 06:57] LABS: ALB/GLOB RATIO 0.9 (1.0-2.1); ALBUMIN 2.7 g/dL (3.5-5.0); ALT/SGPT 19 U/L (9-52); AST/SGOT 28 U/L (14-36); CALCIUM 8.4 mg/dl (8.6-10.4)
--- NOTE | 2018-01-09 07:06 | CP.PCM.PN ---
Subjective - Date & Time of Evaluation Date of Evaluation: 01/09/18 Time of Evaluation: 07:06 - Subjective Subjective: Ms. Bui was seen and examined at the bedside in ICU. She remains alert, oriented and able to remember of stating wrong time earlier. She denies any headache, dizziness. She is able to follow simple commands and able to verbalize immediate needs to staff. She remains with left facial droop and left hemiplegia. She also has left side neglect. She has bilateral lower extremities SCD's. According to the staff, patient has episode of disorientation of time between 12 midnight and 3 am. The patient claims that she usually eats breakfast early in the morning. There was no untoward events overnight. Objective - Vital Signs/Intake and Output Vital Signs (last 24 hours): Temp Pulse Resp BP Pulse Ox 98.2 F 85 18 166/88 H 99 01/09/18 04:00 01/09/18 07:01 01/09/18 07:01 01/09/18 07:01 01/09/18 07:01 Intake and Output: 01/09/18 01/09/18 06:59 18:59 Intake Total 301 0 Output Total 1600 Balance -1299 0 - Medications Medications: Current Medications Acetaminophen/Codeine Phosphate (Tylenol/Codeine 300 Mg/30 Mg) 1 ea PO Q4 PRN PRN Reason: Headache Last Admin: 01/08/18 21:45 Dose: 1 ea Amlodipine Besylate (Norvasc) 10 mg PO DAILY [facility] Last Admin: 01/08/18 10:56 Dose: 10 mg Ascorbic Acid (Vitamin C 500 Mg Tab) 500 mg PO DAILY [facility] Last Admin: 01/08/18 18:29 Dose: 500 mg Aspirin (Aspirin Chewable) 81 mg NG DAILY [facility] Last Admin: 01/08/18 09:40 Dose: 81 mg Clopidogrel Bisulfate (Plavix) 75 mg NG DAILY [facility] Last Admin: 01/08/18 09:40 Dose: 75 mg Famotidine (Pepcid) 20 mg PO BID [facility] Last Admin: 01/08/18 17:28 Dose: 20 mg Fluoxetine HCl (Prozac) 20 mg PO DAILY [facility] Stop: 02/07/18 18:14 Last Admin: 01/08/18 18:29 Dose: 20 mg Heparin Sodium (Porcine) (Heparin) 5,000 units SC Q12H [facility] Last Admin: 01/08/18 22:00 Dose: 5,000 units Hydralazine HCl (Apresoline) 10 mg IVP Q6H PRN PRN Reason: SBP>160 Last Admin: 01/08/18 09:44 Dose: 10 mg Folic Acid 1 mg/ Sodium (Chloride) 100.2 mls @ 60 mls/hr IV DAILY [facility] Last Admin: 01/08/18 09:28 Dose: 60 mls/hr Valproate Sodium 500 mg/ (Sodium Chloride) 105 mls @ 0 mls/hr IVPB Q12 [facility] PRN Reason: Per Protocol Last Admin: 01/08/18 21:45 Dose: 100 mls/hr Lorazepam (Ativan) 1 mg IVP Q6H PRN PRN Reason: Anxiety Last Admin: 01/09/18 03:55 Dose: 1 mg Quetiapine Fumarate (Seroquel) 25 mg PO DAILY [facility] Last Admin: 01/08/18 09:40 Dose: 25 mg Rosuvastatin Calcium (Crestor) 5 mg PO HS [facility] Last Admin: 01/08/18 21:45 Dose: 5 mg Zinc Sulfate (Zinc Sulfate 220 Mg Cap) 220 mg PO DAILY [facility] Last Admin: 01/08/18 18:29 Dose: 220 mg - Labs Labs: 01/09/18 06:15 01/09/18 06:15 PT 12.2 SECONDS (9.7-12.2) 01/04/18 11:43 INR 1.1 01/04/18 11:43 APTT 26 SECONDS (21-34) 01/04/18 11:43 - Constitutional Appears: Well, No Acute Distress - Head Exam Head Exam: NORMAL INSPECTION - Eye Exam Pupil Exam: PERRL, Unequal Additional comments: right 3 mm, left 4 mm both are sluggish Assessment and Plan (1) CVA (cerebral vascular accident) Assessment & Plan: Case discussed with Dr. Jacob, continue all current medical, physical, occupational, and speech therapies. Recommend blood pressure control and acute rehab for discharge planning. Status: Acute
[2018-01-09] MEDS ORDERED: Potassium Chloride 20 mEq/15 ml LIQ UD PO ONE (08:00)
[2018-01-09] MEDS: Magnesium Sulfate 1 gm in D5W 1 GM/100 ML BAG IVPB SCH ×2 (08:05→09:00)
[2018-01-09] MEDS: Valproate 500 MG in Sodium Chloride 0.9% 100 ML IVPB SCH ×2 (09:00→22:30)
--- NOTE | 2018-01-09 16:50 | CP.PCM.PN ---
Subjective - Date & Time of Evaluation Date of Evaluation: 01/09/18 Time of Evaluation: 16:49 - Subjective Subjective: sleepy some neglect left side nurse reported some confusion at night Objective - Vital Signs/Intake and Output Vital Signs (last 24 hours): Temp Pulse Resp BP Pulse Ox 98.2 F 92 H 16 115/65 97 01/09/18 12:00 01/09/18 15:02 01/09/18 15:02 01/09/18 15:02 01/09/18 15:02 Intake and Output: 01/09/18 01/09/18 06:59 18:59 Intake Total 301 980 Output Total 1600 900 Balance -1299 80 - Medications Medications: Current Medications Acetaminophen/Codeine Phosphate (Tylenol/Codeine 300 Mg/30 Mg) 1 ea PO Q4 PRN PRN Reason: Headache Last Admin: 01/08/18 21:45 Dose: 1 ea Amlodipine Besylate (Norvasc) 10 mg PO DAILY [facility] Last Admin: 01/09/18 09:38 Dose: 10 mg Ascorbic Acid (Vitamin C 500 Mg Tab) 500 mg PO DAILY [facility] Last Admin: 01/09/18 09:39 Dose: 500 mg Aspirin (Aspirin Chewable) 81 mg NG DAILY [facility] Last Admin: 01/09/18 09:39 Dose: 81 mg Clopidogrel Bisulfate (Plavix) 75 mg NG DAILY [facility] Last Admin: 01/09/18 09:40 Dose: 75 mg Famotidine (Pepcid) 20 mg PO BID [facility] Last Admin: 01/09/18 09:39 Dose: 20 mg Fluoxetine HCl (Prozac) 20 mg PO DAILY [facility] Stop: 02/07/18 18:14 Last Admin: 01/09/18 09:40 Dose: 20 mg Heparin Sodium (Porcine) (Heparin) 5,000 units SC Q12H [facility] Last Admin: 01/09/18 10:04 Dose: 5,000 units Hydralazine HCl (Apresoline) 10 mg IVP Q6H PRN PRN Reason: SBP>160 Last Admin: 01/08/18 09:44 Dose: 10 mg Folic Acid 1 mg/ Sodium (Chloride) 100.2 mls @ 60 mls/hr IV DAILY [facility] Last Admin: 01/09/18 10:01 Dose: 60 mls/hr Valproate Sodium 500 mg/ (Sodium Chloride) 105 mls @ 0 mls/hr IVPB Q12 [facility] PRN Reason: Per Protocol Last Admin: 01/09/18 09:00 Dose: 105 mls/hr Lorazepam (Ativan) 1 mg IVP Q6H PRN PRN Reason: Anxiety Last Admin: 01/09/18 03:55 Dose: 1 mg Quetiapine Fumarate (Seroquel) 25 mg PO DAILY [facility] Last Admin: 01/09/18 09:40 Dose: 25 mg Rosuvastatin Calcium (Crestor) 5 mg PO HS [facility] Last Admin: 01/08/18 21:45 Dose: 5 mg Zinc Sulfate (Zinc Sulfate 220 Mg Cap) 220 mg PO DAILY [facility] Last Admin: 01/09/18 09:41 Dose: 220 mg - Labs Labs: 01/09/18 06:15 01/09/18 06:15 PT 12.2 SECONDS (9.7-12.2) 01/04/18 11:43 INR 1.1 01/04/18 11:43 APTT 26 SECONDS (21-34) 01/04/18 11:43 - Head Exam Head Exam: ATRAUMATIC - Respiratory Exam Respiratory Exam: Clear to Ausculation Bilateral, NORMAL BREATHING PATTERN - Cardiovascular Exam Cardiovascular Exam: REGULAR RHYTHM, +S1, +S2 - Neurological Exam Neurological Exam: Alert, Awake, Oriented x3 Neuro motor strength exam: Left Upper Extremity: 0, Right Upper Extremity: 5, Left Lower Extremity: 0, Right Lower Extremity: 5 - Psychiatric Exam Psychiatric exam: Anxious - Skin Skin Exam: Normal Color Assessment and Plan - Assessment and Plan (Free Text) Assessment: acute cva of right mca- leading to left side paralysis right side brain swelling post cva PT/OT
[2018-01-10] MEDS: Valproate 500 MG in Sodium Chloride 0.9% 100 ML IVPB SCH ×2 (09:43→22:00)
--- NOTE | 2018-01-10 09:57 | CP.PCM.PN ---
Subjective - Date & Time of Evaluation Date of Evaluation: 01/10/18 Time of Evaluation: 09:30 - Subjective Subjective: Patient was seen and examined by me. The patient was awake and alert. As previously mentioned she continues to have the left body total hemiplegia, hemiparesis. She has the left facial droop. The left pupil remains dilated as well. Family not present at this moment Objective - Vital Signs/Intake and Output Vital Signs (last 24 hours): Temp Pulse Resp BP Pulse Ox 98.1 F 80 14 150/76 100 01/10/18 04:00 01/10/18 08:00 01/10/18 08:00 01/10/18 06:37 01/10/18 08:00 Intake and Output: 01/10/18 01/10/18 06:59 18:59 Intake Total 320 Output Total 1550 Balance -1230 - Medications Medications: Current Medications Acetaminophen/Codeine Phosphate (Tylenol/Codeine 300 Mg/30 Mg) 1 ea PO Q4 PRN PRN Reason: Headache Last Admin: 01/08/18 21:45 Dose: 1 ea Amlodipine Besylate (Norvasc) 10 mg PO DAILY [facility] Last Admin: 01/10/18 09:44 Dose: 10 mg Ascorbic Acid (Vitamin C 500 Mg Tab) 500 mg PO DAILY [facility] Last Admin: 01/10/18 09:44 Dose: 500 mg Aspirin (Aspirin Chewable) 81 mg NG DAILY [facility] Last Admin: 01/10/18 09:44 Dose: 81 mg Clopidogrel Bisulfate (Plavix) 75 mg NG DAILY [facility] Last Admin: 01/10/18 09:44 Dose: 75 mg Famotidine (Pepcid) 20 mg PO BID [facility] Last Admin: 01/10/18 09:44 Dose: 20 mg Fluoxetine HCl (Prozac) 20 mg PO DAILY [facility] Stop: 02/07/18 18:14 Last Admin: 01/10/18 09:44 Dose: 20 mg Heparin Sodium (Porcine) (Heparin) 5,000 units SC Q12H [facility] Last Admin: 01/09/18 22:28 Dose: 5,000 units Hydralazine HCl (Apresoline) 10 mg IVP Q6H PRN PRN Reason: SBP>160 Last Admin: 01/08/18 09:44 Dose: 10 mg Folic Acid 1 mg/ Sodium (Chloride) 100.2 mls @ 60 mls/hr IV DAILY [facility] Last Admin: 01/10/18 09:44 Dose: 60 mls/hr Valproate Sodium 500 mg/ (Sodium Chloride) 105 mls @ 0 mls/hr IVPB Q12 [facility] PRN Reason: Per Protocol Last Admin: 01/10/18 09:43 Dose: 100 mls/hr Lorazepam (Ativan) 1 mg IVP Q6H PRN PRN Reason: Anxiety Last Admin: 01/09/18 03:55 Dose: 1 mg Quetiapine Fumarate (Seroquel) 25 mg PO DAILY [facility] Last Admin: 01/10/18 09:44 Dose: 25 mg Rosuvastatin Calcium (Crestor) 5 mg PO HS [facility] Last Admin: 01/09/18 22:29 Dose: 5 mg Zinc Sulfate (Zinc Sulfate 220 Mg Cap) 220 mg PO DAILY [facility] Last Admin: 01/10/18 09:44 Dose: 220 mg - Labs Labs: 01/09/18 06:15 01/09/18 06:15 PT 12.2 SECONDS (9.7-12.2) 01/04/18 11:43 INR 1.1 01/04/18 11:43 APTT 26 SECONDS (21-34) 01/04/18 11:43 - Constitutional Appears: No Acute Distress, Unkempt, Chronically Ill - Eye Exam Eye Exam: EOMI - ENT Exam ENT Exam: Mucous Membranes Moist - Respiratory Exam Respiratory Exam: Clear to Ausculation Bilateral, NORMAL BREATHING PATTERN - Cardiovascular Exam Cardiovascular Exam: REGULAR RHYTHM - GI/Abdominal Exam GI & Abdominal Exam: Soft, Normal Bowel Sounds - Neurological Exam Neurological Exam: Alert, Awake, Oriented x3 Neuro motor strength exam: Left Upper Extremity: 0, Right Upper Extremity: 4, Left Lower Extremity: 0, Right Lower Extremity: 4 - Psychiatric Exam Psychiatric exam: Depressed, Flat Affect - Skin Skin Exam: Normal Color, Warm Assessment and Plan - Assessment and Plan (Free Text) Assessment: Acute CVA affecting the right parietal/temporal area. 01/10: Continue with PT/OT. Today added on lisinopril 5 for more BP control. Continue previous medications. 01/07: Repeat CT scans have not shown hemmorage. There is still a midline shift that 2 to 3 mm. On slow hypertonic saline 01/06/2018: Patient remains on slow IVF hypertonic saline. She underwent MRI and besides the CVA she had it also is reported as questionable hemorrhage seen. Per neurology we are getting a new CT of the head and decide if need to stop the ASA and Plavix. The echo returned, EF is 55 to 60% 01/05/2018: The second head CT at 23:00 showed midline shifting from right to left. She was given hypertonic saline. The third CT this morning done at 8:30 again shows the the midline shift, to my very untrained eyes it looked not as severe as the second CT. Nevertheless from what I understand ICU is continuing with the hypertonic saline. I also had a very long discussion with the patient's family at bedside and told them that she may need neurosurgical intervention to relieve the pressure that was seen. Later today for MRI, echo. She had NGT removed earlier this morning for swallow eval. She is on Plavix and Crestor. This might need to be placed back in again depending on swallow eval. - CT 01/07: Again shows the CVA involing the LAURI and MCA area. No bleeding. 2-3 mm midline shift. No signifigant change - CT 1:30 AM 01/04 - large hypodensity at the right brain suggestive of acute right MCA territory infarction - CT @ 12:30: there is mass affect now a 3 mm left shift - CT @ 8:00 AM showed the right MCA/LAURI area with mass effect and compreesion with right to left midline shoft - Dr. Castillo, neurology consulted help appreciated: not a TPA candidate - out of time window - NIHSS - 17 - Neuro checks Q1hour, BP checks Q15 min (will intervene if bp exceed 210/110) - Elevate head of bed to 30 degrees, aspiration precautions - will follow up repeat CT in 12 hours to observe for progression and monitor for herniation - Head/Neck CTA - right coronary artyer disease 75-80% oclusion Heavy alcohol use 01/05/2018: Patient maybe a heavy alcohol user. She did not show signs of withdrawl this morning. Continue to monitor. Hyperlipidemia Tchol 210, Triglycerides 248, LDL 92, HDL 81 01/07: Remains on Plavix and Statin and ASA Prophylaxis Protonix 40mg IVP daily [facility]
[2018-01-11 07:45] LABS: BASO % 0.4 % (0.0-2.0); EOS # 0.1 K/uL (0.0-0.7); EOS % 1.2 % (0.0-4.0); LYMPH # 1.6 K/uL (1.0-4.3); LYMPH % 31.2 % (20.0-40.0); MEAN CELL VOLUME 96.7 fL (81.0-99.0); MEAN CORPUSCULAR HEMOGLOBIN 32.4 pg (27.0-31.0); MEAN CORPUSCULAR HGB CONC 33.5 g/dL (33.0-37.0); MEAN PLATELET VOLUME 8.1 fL (7.2-11.7); MONO # 0.8 K/uL (0.0-0.8); MONO % 15.2 % (0.0-10.0); NEUT # 2.7 K/uL (1.8-7.0); NRBC % 0.1 % (0.0-2.0); RBC 3.4 Mil/uL (3.80-5.20); RED CELL DISTRIBUTION WIDTH 15.2 % (11.5-14.5); WHITE BLOOD COUNT 5.2 K/uL (4.8-10.8)
[2018-01-11 08:05] LABS: ALB/GLOB RATIO 0.9 (1.0-2.1); ALBUMIN 3.4 g/dL (3.5-5.0); ALT/SGPT 34 U/L (9-52); AST/SGOT 69 U/L (14-36); BLOOD UREA NITROGEN 5 mg/dL (7-17); CALCIUM 9.3 mg/dl (8.6-10.4); GFR AFRICAN-AMERICAN > 60; GFR NON-AFRICAN AMERICAN > 60
--- NOTE | 2018-01-11 08:24 | CP.PCM.PN ---
Subjective - Date & Time of Evaluation Date of Evaluation: 01/11/18 Time of Evaluation: 08:00 - Subjective Subjective: Patient was moved out of ICU last night. No acute changes overnight. She denied chest pain, denied shortness of breath, denied palpitations. She still has the left side hemiparesis/neglect. Left side facial droop, and also left pupil remains sluggish and non responsive to light. Starting additional BP medication today. Normally family is present at bedside, however not this morning. Objective - Vital Signs/Intake and Output Vital Signs (last 24 hours): Temp Pulse Resp BP Pulse Ox 98.3 F 87 20 150/90 97 01/11/18 04:19 01/11/18 04:19 01/11/18 04:19 01/11/18 04:28 01/11/18 04:19 Intake and Output: 01/11/18 01/11/18 06:59 18:59 Intake Total 118 Output Total 725 Balance -607 - Medications Medications: Current Medications Acetaminophen/Codeine Phosphate (Tylenol/Codeine 300 Mg/30 Mg) 1 ea PO Q4 PRN PRN Reason: Headache Last Admin: 01/08/18 21:45 Dose: 1 ea Amlodipine Besylate (Norvasc) 10 mg PO DAILY [facility] Last Admin: 01/10/18 09:44 Dose: 10 mg Ascorbic Acid (Vitamin C 500 Mg Tab) 500 mg PO DAILY [facility] Last Admin: 01/10/18 09:44 Dose: 500 mg Aspirin (Aspirin Chewable) 81 mg NG DAILY [facility] Last Admin: 01/10/18 09:44 Dose: 81 mg Clopidogrel Bisulfate (Plavix) 75 mg NG DAILY [facility] Last Admin: 01/10/18 09:44 Dose: 75 mg Famotidine (Pepcid) 20 mg PO BID [facility] Last Admin: 01/10/18 18:54 Dose: 20 mg Fluoxetine HCl (Prozac) 20 mg PO DAILY [facility] Stop: 02/07/18 18:14 Last Admin: 01/10/18 09:44 Dose: 20 mg Heparin Sodium (Porcine) (Heparin) 5,000 units SC Q12H [facility] Last Admin: 01/10/18 22:00 Dose: 5,000 units Hydralazine HCl (Apresoline) 10 mg IVP Q6H PRN PRN Reason: SBP>160 Last Admin: 01/08/18 09:44 Dose: 10 mg Folic Acid 1 mg/ Sodium (Chloride) 100.2 mls @ 60 mls/hr IV DAILY [facility] Last Admin: 01/10/18 09:44 Dose: 60 mls/hr Valproate Sodium 500 mg/ (Sodium Chloride) 105 mls @ 0 mls/hr IVPB Q12 [facility] PRN Reason: Per Protocol Last Admin: 01/10/18 22:00 Dose: 100 mls/hr Lisinopril (Zestril) 5 mg PO DAILY [facility] Lorazepam (Ativan) 1 mg IVP Q6H PRN PRN Reason: Anxiety Last Admin: 01/09/18 03:55 Dose: 1 mg Quetiapine Fumarate (Seroquel) 25 mg PO DAILY [facility] Last Admin: 01/10/18 09:44 Dose: 25 mg Rosuvastatin Calcium (Crestor) 5 mg PO HS [facility] Last Admin: 01/10/18 22:00 Dose: 5 mg Zinc Sulfate (Zinc Sulfate 220 Mg Cap) 220 mg PO DAILY [facility] Last Admin: 01/10/18 09:44 Dose: 220 mg - Labs Labs: 01/11/18 07:36 01/11/18 07:36 PT 12.2 SECONDS (9.7-12.2) 01/04/18 11:43 INR 1.1 01/04/18 11:43 APTT 26 SECONDS (21-34) 01/04/18 11:43 - Head Exam Additional comments: Left face drooping, nasal labial fold - Eye Exam Pupil Exam: Irregular, Unequal Additional comments: The left pupil - like before non responsive to light. Also she continues to have no left lateral movment - ENT Exam ENT Exam: Mucous Membranes Moist - Respiratory Exam Respiratory Exam: Clear to Ausculation Bilateral, NORMAL BREATHING PATTERN - Cardiovascular Exam Cardiovascular Exam: REGULAR RHYTHM - GI/Abdominal Exam GI & Abdominal Exam: Soft, Normal Bowel Sounds - Neurological Exam Neurological Exam: Alert, Awake, Motor Sensory Deficit, Oriented x3. absent: CN II-XII Intact Neuro motor strength exam: Left Upper Extremity: 0, Right Upper Extremity: 4, Left Lower Extremity: 0, Right Lower Extremity: 4 - Psychiatric Exam Psychiatric exam: Depressed, Flat Affect - Skin Skin Exam: Normal Color, Warm Assessment and Plan - Assessment and Plan (Free Text) Assessment: Acute CVA affecting the right parietal/temporal area. 01/11: Probably will need acute rehab, however given social situation this may not be possible. Will need to see what case workers / social workers are able to do this comming week. 01/10: Continue with PT/OT. Today added on lisinopril 5 for more BP control. Continue previous medications. 01/07: Repeat CT scans have not shown hemmorage. There is still a midline shift that 2 to 3 mm. On slow hypertonic saline 01/06/2018: Patient remains on slow IVF hypertonic saline. She underwent MRI and besides the CVA she had it also is reported as questionable hemorrhage seen. Per neurology we are getting a new CT of the head and decide if need to stop the ASA and Plavix. The echo returned, EF is 55 to 60% 01/05/2018: The second head CT at 23:00 showed midline shifting from right to left. She was given hypertonic saline. The third CT this morning done at 8:30 again shows the the midline shift, to my very untrained eyes it looked not as severe as the second CT. Nevertheless from what I understand ICU is continuing with the hypertonic saline. I also had a very long discussion with the patient's family at bedside and told them that she may need neurosurgical intervention to relieve the pressure that was seen. Later today for MRI, echo. She had NGT removed earlier this morning for swallow eval. She is on Plavix and Crestor. This might need to be placed back in again depending on swallow eval. - CT 01/07: Again shows the CVA involing the LAURI and MCA area. No bleeding. 2-3 mm midline shift. No signifigant change - CT 1:30 AM 01/04 - large hypodensity at the right brain suggestive of acute right MCA territory infarction - CT @ 12:30: there is mass affect now a 3 mm left shift - CT @ 8:00 AM showed the right MCA/LAURI area with mass effect and compreesion with right to left midline shoft - Dr. Castillo, neurology consulted help appreciated: not a TPA candidate - out of time window - NIHSS - 17 - Neuro checks Q1hour, BP checks Q15 min (will intervene if bp exceed 210/110) - Elevate head of bed to 30 degrees, aspiration precautions - will follow up repeat CT in 12 hours to observe for progression and monitor for herniation - Head/Neck CTA - right coronary artyer disease 75-80% oclusion Heavy alcohol use 01/11: We haven't had any problems with withdrawl symptoms 01/05/2018: Patient maybe a heavy alcohol user. She did not show signs of withdrawl this morning. Continue to monitor. Hyperlipidemia Tchol 210, Triglycerides 248, LDL 92, HDL 81 01/07: Remains on Plavix and Statin and ASA Prophylaxis Protonix 40mg IVP daily [facility]
[2018-01-11] MEDS: Valproate 500 MG in Sodium Chloride 0.9% 100 ML IVPB SCH ×2 (09:46→21:29)
--- NOTE | 2018-01-11 11:09 | CP.PCM.PN ---
Subjective - Date & Time of Evaluation Date of Evaluation: 01/11/18 Time of Evaluation: 11:09 - Subjective Subjective: Ms. Bui was seen and examined at the bedside . She remains alert, oriented. She is very sleepy but able to answer and follow simple commands.She denies any headache, dizziness. She able to verbalize immediate needs to staff. She remains with left facial droop and left hemiplegia. She also has left side neglect. She has bilateral lower extremities SCD's. She is ableto tolerate PO intake. She is on telesitter for patient safety. There was no untoward events overnight. Objective - Vital Signs/Intake and Output Vital Signs (last 24 hours): Temp Pulse Resp BP Pulse Ox 98.0 F 87 18 169/86 H 100 01/11/18 07:05 01/11/18 08:00 01/11/18 07:05 01/11/18 07:05 01/11/18 07:05 Intake and Output: 01/11/18 01/11/18 06:59 18:59 Intake Total 118 Output Total 725 Balance -607 - Medications Medications: Current Medications Amlodipine Besylate (Norvasc) 10 mg PO DAILY [facility] Last Admin: 01/11/18 09:42 Dose: 10 mg Ascorbic Acid (Vitamin C 500 Mg Tab) 500 mg PO DAILY [facility] Last Admin: 01/11/18 09:42 Dose: 500 mg Aspirin (Aspirin Chewable) 81 mg NG DAILY [facility] Last Admin: 01/11/18 09:42 Dose: 81 mg Clopidogrel Bisulfate (Plavix) 75 mg NG DAILY [facility] Last Admin: 01/11/18 09:42 Dose: 75 mg Famotidine (Pepcid) 20 mg PO BID [facility] Last Admin: 01/11/18 09:42 Dose: 20 mg Fluoxetine HCl (Prozac) 20 mg PO DAILY [facility] Stop: 02/07/18 18:14 Last Admin: 01/11/18 09:42 Dose: 20 mg Hydralazine HCl (Apresoline) 10 mg IVP Q6H PRN PRN Reason: SBP>160 Last Admin: 01/08/18 09:44 Dose: 10 mg Folic Acid 1 mg/ Sodium (Chloride) 100.2 mls @ 60 mls/hr IV DAILY [facility] Last Admin: 01/11/18 09:48 Dose: 60 mls/hr Valproate Sodium 500 mg/ (Sodium Chloride) 105 mls @ 0 mls/hr IVPB Q12 [facility] PRN Reason: Per Protocol Last Admin: 01/11/18 09:46 Dose: 100 mls/hr Lisinopril (Zestril) 5 mg PO DAILY [facility] Last Admin: 01/11/18 09:42 Dose: 5 mg Lorazepam (Ativan) 1 mg IVP Q6H PRN PRN Reason: Anxiety Last Admin: 01/09/18 03:55 Dose: 1 mg Quetiapine Fumarate (Seroquel) 25 mg PO DAILY [facility] Last Admin: 01/11/18 09:42 Dose: 25 mg Rosuvastatin Calcium (Crestor) 5 mg PO HS [facility] Last Admin: 01/10/18 22:00 Dose: 5 mg Zinc Sulfate (Zinc Sulfate 220 Mg Cap) 220 mg PO DAILY [facility] Last Admin: 01/11/18 09:42 Dose: 220 mg - Labs Labs: 01/11/18 07:36 01/11/18 07:36 PT 12.2 SECONDS (9.7-12.2) 01/04/18 11:43 INR 1.1 01/04/18 11:43 APTT 26 SECONDS (21-34) 01/04/18 11:43 - Head Exam Head Exam: NORMAL INSPECTION - Neurological Exam Neurological Exam: Alert, Awake, Oriented x3 Neuro motor strength exam: Left Upper Extremity: 0, Right Upper Extremity: 4, Left Lower Extremity: 0, Right Lower Extremity: 4 Additional comments: Neurological unchanged from previous examination. Assessment and Plan (1) CVA (cerebral vascular accident) Assessment & Plan: Fernando discussed with Dr. Jacob, continue all current medical, physical, occupational , and speech therapies. Recommend blood pressure control. If patient continues to be very sleepy becoming lethargic to repeat a CT of the head without contrast. Status: Acute
[2018-01-12] MEDS ORDERED: Acetaminophen-Codeine 300/30 mg Tab PO ONE (00:41)
--- NOTE | 2018-01-12 07:58 | CP.PCM.PN ---
Subjective - Date & Time of Evaluation Date of Evaluation: 01/12/18 Time of Evaluation: 07:54 - Subjective Subjective: Ms. Bui is seen and examined at the bedside. She remains alert, oriented in all spheres. She complains of experiencing very mild frontal headache with pain scale 2/10, non-radiating, denies any blurred vision, dizziness, lightheadedness , nausea, or vomiting. She is able to follow simple commands with left facial droop, left side hemiplegia. She is requesting to step up her diet, explained to the patient the importance of re-evaluation of swallowing in order to do that , verbalizes understanding. She reamins on telesitter for patient safety.There was no untoward events overnight. Objective - Vital Signs/Intake and Output Vital Signs (last 24 hours): Temp Pulse Resp BP Pulse Ox 98.1 F 71 18 134/80 98 01/12/18 07:20 01/12/18 07:20 01/12/18 07:20 01/12/18 07:20 01/12/18 07:20 Intake and Output: 01/12/18 01/12/18 06:59 18:59 Intake Total 120 Output Total 900 Balance -780 - Medications Medications: Current Medications Amlodipine Besylate (Norvasc) 10 mg PO DAILY [facility] Last Admin: 01/11/18 09:42 Dose: 10 mg Ascorbic Acid (Vitamin C 500 Mg Tab) 500 mg PO DAILY [facility] Last Admin: 01/11/18 09:42 Dose: 500 mg Aspirin (Aspirin Chewable) 81 mg NG DAILY [facility] Last Admin: 01/11/18 09:42 Dose: 81 mg Clopidogrel Bisulfate (Plavix) 75 mg NG DAILY [facility] Last Admin: 01/11/18 09:42 Dose: 75 mg Famotidine (Pepcid) 20 mg PO BID [facility] Last Admin: 01/11/18 17:42 Dose: 20 mg Fluoxetine HCl (Prozac) 20 mg PO DAILY [facility] Stop: 02/07/18 18:14 Last Admin: 01/11/18 09:42 Dose: 20 mg Hydralazine HCl (Apresoline) 10 mg IVP Q6H PRN PRN Reason: SBP>160 Last Admin: 01/08/18 09:44 Dose: 10 mg Folic Acid 1 mg/ Sodium (Chloride) 100.2 mls @ 60 mls/hr IV DAILY [facility] Last Admin: 01/11/18 09:48 Dose: 60 mls/hr Valproate Sodium 500 mg/ (Sodium Chloride) 105 mls @ 0 mls/hr IVPB Q12 [facility] PRN Reason: Per Protocol Last Admin: 01/11/18 21:29 Dose: 100 mls/hr Lisinopril (Zestril) 5 mg PO DAILY [facility] Last Admin: 01/11/18 09:42 Dose: 5 mg Quetiapine Fumarate (Seroquel) 25 mg PO DAILY [facility] Last Admin: 01/11/18 09:42 Dose: 25 mg Rosuvastatin Calcium (Crestor) 40 mg PO HS [facility] Last Admin: 01/11/18 21:30 Dose: 40 mg Zinc Sulfate (Zinc Sulfate 220 Mg Cap) 220 mg PO DAILY [facility] Last Admin: 01/11/18 09:42 Dose: 220 mg - Labs Labs: 01/11/18 07:36 01/11/18 07:36 PT 12.2 SECONDS (9.7-12.2) 01/04/18 11:43 INR 1.1 01/04/18 11:43 APTT 26 SECONDS (21-34) 01/04/18 11:43 - Constitutional Appears: No Acute Distress - Head Exam Head Exam: NORMAL INSPECTION - Neurological Exam Neurological Exam: Alert, Awake, Oriented x3 Neuro motor strength exam: Left Upper Extremity: 0, Right Upper Extremity: 4, Left Lower Extremity: 0, Right Lower Extremity: 4 Additional comments: Neurological unchanged from previous examination. Assessment and Plan (1) CVA (cerebral vascular accident) Assessment & Plan: Case discussed with Dr. Castillo, continue all current medical, physical, and occupational therapies. Recommend blood pressure control and maintain head of bed at least 30 degrees. Recommend acute rehab for discharge planning. Status: Acute
[2018-01-12 08:14] LABS: ALB/GLOB RATIO 0.9 (1.0-2.1); ALBUMIN 3.4 g/dL (3.5-5.0); ALT/SGPT 31 U/L (9-52); AST/SGOT 64 U/L (14-36); BLOOD UREA NITROGEN 8 mg/dL (7-17); CALCIUM 9.5 mg/dl (8.6-10.4); GFR AFRICAN-AMERICAN > 60; GFR NON-AFRICAN AMERICAN > 60
--- NOTE | 2018-01-12 09:58 | CP.PCM.PN ---
<Juanita Yan - Last Filed: 01/12/18 12:57> Subjective - Date & Time of Evaluation Date of Evaluation: 01/12/18 Time of Evaluation: 06:50 - Subjective Subjective: Patient seen and examined at bedside. Patient resting comfortably in bed with no new complaints at this time. Patient says she has been working on moving her left side but still has not been able to do so, however, she is regaining some sensation there. She denies fever, chills, chest pain, SOB, palpitations, abdominal pain, n/v/d/c, and lower extremity swelling/pain. Objective - Vital Signs/Intake and Output Vital Signs (last 24 hours): Temp Pulse Resp BP Pulse Ox 98.1 F 71 18 134/80 98 01/12/18 07:20 01/12/18 07:20 01/12/18 07:20 01/12/18 07:20 01/12/18 07:20 Intake and Output: 01/12/18 01/12/18 06:59 18:59 Intake Total 120 Output Total 900 Balance -780 - Medications Medications: Current Medications Amlodipine Besylate (Norvasc) 10 mg PO DAILY [facility] Last Admin: 01/11/18 09:42 Dose: 10 mg Ascorbic Acid (Vitamin C 500 Mg Tab) 500 mg PO DAILY [facility] Last Admin: 01/11/18 09:42 Dose: 500 mg Aspirin (Aspirin Chewable) 81 mg NG DAILY [facility] Last Admin: 01/11/18 09:42 Dose: 81 mg Clopidogrel Bisulfate (Plavix) 75 mg NG DAILY [facility] Last Admin: 01/11/18 09:42 Dose: 75 mg Famotidine (Pepcid) 20 mg PO BID [facility] Last Admin: 01/11/18 17:42 Dose: 20 mg Fluoxetine HCl (Prozac) 20 mg PO DAILY [facility] Stop: 02/07/18 18:14 Last Admin: 01/11/18 09:42 Dose: 20 mg Hydralazine HCl (Apresoline) 10 mg IVP Q6H PRN PRN Reason: SBP>160 Last Admin: 01/08/18 09:44 Dose: 10 mg Folic Acid 1 mg/ Sodium (Chloride) 100.2 mls @ 60 mls/hr IV DAILY [facility] Last Admin: 01/11/18 09:48 Dose: 60 mls/hr Valproate Sodium 500 mg/ (Sodium Chloride) 105 mls @ 0 mls/hr IVPB Q12 [facility] PRN Reason: Per Protocol Last Admin: 01/11/18 21:29 Dose: 100 mls/hr Lisinopril (Zestril) 5 mg PO DAILY [facility] Last Admin: 01/11/18 09:42 Dose: 5 mg Quetiapine Fumarate (Seroquel) 25 mg PO DAILY [facility] Last Admin: 01/11/18 09:42 Dose: 25 mg Rosuvastatin Calcium (Crestor) 40 mg PO HS [facility] Last Admin: 01/11/18 21:30 Dose: 40 mg Zinc Sulfate (Zinc Sulfate 220 Mg Cap) 220 mg PO DAILY [facility] Last Admin: 01/11/18 09:42 Dose: 220 mg - Labs Labs: 01/11/18 07:36 01/12/18 06:57 PT 12.2 SECONDS (9.7-12.2) 01/04/18 11:43 INR 1.1 01/04/18 11:43 APTT 26 SECONDS (21-34) 01/04/18 11:43 - Constitutional Appears: Non-toxic, No Acute Distress - Head Exam Head Exam: ATRAUMATIC, NORMAL INSPECTION, NORMOCEPHALIC - Eye Exam Eye Exam: PERRL (sluggish response on the left). absent: EOMI (right gaze preference) - ENT Exam ENT Exam: Mucous Membranes Moist - Respiratory Exam Respiratory Exam: Clear to Ausculation Bilateral, NORMAL BREATHING PATTERN - Cardiovascular Exam Cardiovascular Exam: RRR, +S1, +S2 - GI/Abdominal Exam GI & Abdominal Exam: Soft, Normal Bowel Sounds. absent: Distended, Tenderness - Extremities Exam Extremities Exam: absent: Calf Tenderness, Pedal Edema - Neurological Exam Neurological Exam: Alert, Awake. absent: CN II-XII Intact (left facial droop) Neuro motor strength exam: Left Upper Extremity: 0, Right Upper Extremity: 4, Left Lower Extremity: 0, Right Lower Extremity: 4 - Psychiatric Exam Psychiatric exam: Normal Affect, Normal Mood - Skin Skin Exam: Dry, Intact, Normal Color, Warm Assessment and Plan - Assessment and Plan (Free Text) Plan: Disposition: Patient needs acute rehab at discharge, however she has no insurance. Case management is working on securing some kind of outpatient rehab , but patient will stay here in the meantime. Acute CVA affecting the right parietal/temporal area. * Dr. Castillo (neuro) consulted, help appreciated * Pureed/dysphagia diet * Head of bed elevation * PT/OT Imaging: * 01/[address]: Large hypodensity at the right brain suggestive of acute right MCA territory infarction. Suspicious for right dense MCA sign. If clinically warranted CTA of the head is suggested to evaluate for right MCA occlusion. * 01/04 CTA head and neck: Focal moderate stenosis approximately 75-80 percent noted at the origin of the right internal carotid artery with possible soft plaque. Mild approximately 55 percent stenosis noted at the origin of the left internal carotid artery. Diffuse atherosclerotic disease and calcification noted at the distal internal carotid arteries bilaterally with foci of mild stenosis noted at the supraclinoid portion of the left internal carotid artery. Diffuse approximately 50 percent stenosis of M1 segment of the right middle cerebral artery. Sharp cut off at the M1 bifurcation of the right middle cerebral artery noted. Occlusion of the anterior temporal M2 segment of the right middle cerebral artery at its origin. * 01/[address]: Acute infarct in the right frontal, parietal and temporal lobes. No acute hemorrhage. Midline shift to the left. Prior images have been requested for direct comparison. Comparison is made to prior report. * 01/04 Echo: Normal study with EF 65-70% * 01/[address]: Large right MCA and LAURI territory infarct changes which involve a large portion of the right cerebral hemisphere. The infarct exerts considerable mass effect with overlying sulcal effacement and compressive effects on the right lateral ventricle particularly the right temporal horn with mild [id number] midline shift. No evidence of acute intracranial hemorrhage. Mild underlying chronic white matter ischemic changes seen left cerebral hemisphere as well. No obstructive hydrocephalus. * 01/05 MRI Brain: Acute infarct changes involving a good portion of the right cerebral hemisphere (distal branches of the right middle cerebral artery and anterior cerebral nor arteries). Questionable early hemorrhagic conversion changes right basal ganglia evidenced by foci of dark T2 signal in these locations on gradient echo sequence with isointense T1 signal. Persistent mass effect with mild midline shift. HEMORRHAGE: Questionable early hemorrhagic conversion changes right basal ganglia evidenced by foci of dark T2 signal in these locations on gradient echo sequence with isointense T1 signal * 01/05 Lower extremity US: negative for DVT * 01/[address]: Stable large right renal infarcted involving the right anterior middle cerebral artery territories as discussed above with stable mass effect effacing the sulci of the right cerebral hemisphere in causing a limited leftward some fall seen shift of 3-4 mm once again. No interval intracranial hemorrhage or expansion of the infarcted territory appreciated. Limited age- related neuro degenerative change reiterated at the left cerebral hemisphere. * 01/[address]: Acute/ subacute right frontotemporoparietal infarct. This involves both the LAURI and MCA territory. No hemorrhage. 2-3 mm midline shift towards the left. No significant change from prior examination. Meds: * Norvasc 10 mg QD * Hydralazine 10 mg IV Q6 PRN * Lisinopril 5 mg QD * ASA 81 mg QD * Plavix 75 mg QD * Valproate 500 mg IV Q12h * Seroquel 25 mg QD * Fluoxetine 20 mg QD * Zinc 220 mg QD Heavy alcohol use * No withdrawal symptoms up to this point * Counseled on cessation Hyperlipidemia * Cholesterol 210, Triglycerides 248, LDL 92, HDL 81 * Crestor 40 mg HS Prophylaxis * Pepcid 20 mg BID * SCDs <Lacy Keenan - Last Filed: 01/12/18 17:07> Objective - Vital Signs/Intake and Output Vital Signs (last 24 hours): Temp Pulse Resp BP Pulse Ox 98.1 F 79 20 106/72 98 01/12/18 15:00 01/12/18 15:00 01/12/18 15:00 01/12/18 15:00 01/12/18 15:00 Intake and Output: 01/12/18 01/12/18 06:59 18:59 Intake Total 120 Output Total 900 Balance -780 - Medications Medications: Current Medications Amlodipine Besylate (Norvasc) 10 mg PO DAILY [facility] Last Admin: 01/12/18 10:23 Dose: 10 mg Ascorbic Acid (Vitamin C 500 Mg Tab) 500 mg PO DAILY [facility] Last Admin: 01/12/18 10:23 Dose: 500 mg Aspirin (Aspirin Chewable) 81 mg NG DAILY [facility] Last Admin: 01/12/18 10:23 Dose: 81 mg Clopidogrel Bisulfate (Plavix) 75 mg NG DAILY [facility] Last Admin: 01/12/18 10:23 Dose: 75 mg Famotidine (Pepcid) 20 mg PO BID [facility] Last Admin: 01/12/18 10:23 Dose: 20 mg Fluoxetine HCl (Prozac) 20 mg PO DAILY [facility] Stop: 02/07/18 18:14 Last Admin: 01/12/18 10:23 Dose: 20 mg Hydralazine HCl (Apresoline) 10 mg IVP Q6H PRN PRN Reason: SBP>160 Last Admin: 01/08/18 09:44 Dose: 10 mg Folic Acid 1 mg/ Sodium (Chloride) 100.2 mls @ 60 mls/hr IV DAILY [facility] Last Admin: 01/12/18 11:33 Dose: 60 mls/hr Valproate Sodium 500 mg/ (Sodium Chloride) 105 mls @ 0 mls/hr IVPB Q12 [facility] PRN Reason: Per Protocol Last Admin: 01/12/18 10:25 Dose: 100 mls/hr Lisinopril (Zestril) 5 mg PO DAILY [facility] Last Admin: 01/12/18 10:23 Dose: 5 mg Loratadine (Claritin) 10 mg PO DAILY PRN PRN Reason: Allergy symptoms Quetiapine Fumarate (Seroquel) 25 mg PO DAILY [facility] Last Admin: 01/12/18 10:23 Dose: 25 mg Rosuvastatin Calcium (Crestor) 40 mg PO HS [facility] Last Admin: 01/11/18 21:30 Dose: 40 mg Zinc Sulfate (Zinc Sulfate 220 Mg Cap) 220 mg PO DAILY [facility] Last Admin: 01/12/18 10:23 Dose: 220 mg - Labs Labs: 01/11/18 07:36 01/12/18 06:57 PT 12.2 SECONDS (9.7-12.2) 01/04/18 11:43 INR 1.1 01/04/18 11:43 APTT 26 SECONDS (21-34) 01/04/18 11:43 Attending/Attestation - Attestation I have personally seen and examined this patient.: Yes I have fully participated in the care of the patient.: Yes I have reviewed all pertinent clinical information, including history, physical exam and plan: Yes Notes (Text): seen and examined Has left side weakness d/w her sister at bed side Assessment,plan and medications discussed with the resident I agree with the documentation
[2018-01-12] MEDS: Valproate 500 MG in Sodium Chloride 0.9% 100 ML IVPB SCH ×2 (10:25→21:29)
--- NOTE | 2018-01-13 07:53 | CP.PCM.PN ---
<Juanita Yan - Last Filed: 01/13/18 14:27> Subjective - Date & Time of Evaluation Date of Evaluation: 01/13/18 Time of Evaluation: 07:49 - Subjective Subjective: Patient seen and examined at bedside. Patient resting comfortably in bed with no new complaints at this time. Patient still working on moving her left side and regaining some sensation. Patient is complaining of nasal congestion and pruritus that she attributes to allergies, however she has no rash. She denies fever, chills, chest pain, SOB, palpitations, abdominal pain, n/v/d/c, and lower extremity swelling/pain. Objective - Vital Signs/Intake and Output Vital Signs (last 24 hours): Temp Pulse Resp BP Pulse Ox 98.0 F 73 20 127/78 97 01/13/18 03:00 01/13/18 04:25 01/13/18 03:00 01/13/18 03:00 01/13/18 03:00 Intake and Output: 01/13/18 01/13/18 06:59 18:59 Intake Total 670 Output Total 600 Balance 70 - Medications Medications: Current Medications Amlodipine Besylate (Norvasc) 10 mg PO DAILY [facility] Last Admin: 01/12/18 10:23 Dose: 10 mg Ascorbic Acid (Vitamin C 500 Mg Tab) 500 mg PO DAILY [facility] Last Admin: 01/12/18 10:23 Dose: 500 mg Aspirin (Aspirin Chewable) 81 mg NG DAILY [facility] Last Admin: 01/12/18 10:23 Dose: 81 mg Clopidogrel Bisulfate (Plavix) 75 mg NG DAILY [facility] Last Admin: 01/12/18 10:23 Dose: 75 mg Famotidine (Pepcid) 20 mg PO BID [facility] Last Admin: 01/12/18 17:11 Dose: 20 mg Fluoxetine HCl (Prozac) 20 mg PO DAILY [facility] Stop: 02/07/18 18:14 Last Admin: 01/12/18 10:23 Dose: 20 mg Hydralazine HCl (Apresoline) 10 mg IVP Q6H PRN PRN Reason: SBP>160 Last Admin: 01/08/18 09:44 Dose: 10 mg Folic Acid 1 mg/ Sodium (Chloride) 100.2 mls @ 60 mls/hr IV DAILY [facility] Last Admin: 01/12/18 11:33 Dose: 60 mls/hr Valproate Sodium 500 mg/ (Sodium Chloride) 105 mls @ 0 mls/hr IVPB Q12 [facility] PRN Reason: Per Protocol Last Admin: 01/12/18 21:29 Dose: 100 mls/hr Lisinopril (Zestril) 5 mg PO DAILY [facility] Last Admin: 01/12/18 10:23 Dose: 5 mg Loratadine (Claritin) 10 mg PO DAILY PRN PRN Reason: Allergy symptoms Quetiapine Fumarate (Seroquel) 25 mg PO DAILY [facility] Last Admin: 01/12/18 10:23 Dose: 25 mg Rosuvastatin Calcium (Crestor) 40 mg PO HS [facility] Last Admin: 01/12/18 21:29 Dose: 40 mg Zinc Sulfate (Zinc Sulfate 220 Mg Cap) 220 mg PO DAILY [facility] Last Admin: 01/12/18 10:23 Dose: 220 mg - Labs Labs: 01/11/18 07:36 01/12/18 06:57 PT 12.2 SECONDS (9.7-12.2) 01/04/18 11:43 INR 1.1 01/04/18 11:43 APTT 26 SECONDS (21-34) 01/04/18 11:43 - Additional Findings Additional findings: - Constitutional Appears: Non-toxic, No Acute Distress - Head Exam Head Exam: ATRAUMATIC, NORMAL INSPECTION, NORMOCEPHALIC - Eye Exam Eye Exam: PERRL (sluggish response on the left). EOMI Patient can now move eyes to the left - ENT Exam ENT Exam: Mucous Membranes Moist - Respiratory Exam Respiratory Exam: Clear to Ausculation Bilateral, NORMAL BREATHING PATTERN - Cardiovascular Exam Cardiovascular Exam: RRR, +S1, +S2 - GI/Abdominal Exam GI & Abdominal Exam: Soft, Normal Bowel Sounds. absent: Distended, Tenderness - Extremities Exam Extremities Exam: absent: Calf Tenderness, Pedal Edema - Neurological Exam Neurological Exam: Alert, Awake. absent: CN II-XII Intact (left facial droop) Neuro motor strength exam: Left Upper Extremity: 0, Right Upper Extremity: 4, Left Lower Extremity: 0, Right Lower Extremity: 4 - Psychiatric Exam Psychiatric exam: Normal Affect, Normal Mood - Skin Skin Exam: Dry, Intact, Normal Color, Warm Assessment and Plan - Assessment and Plan (Free Text) Plan: Disposition: Patient needs acute rehab at discharge, however she has no insurance. Will continue to work with case management for discharge plans. Per PT, patient can not use a wheelchair because she cannot transfer from bed to chair without max assistance. Acute CVA affecting the right parietal/temporal area. * Dr. Castillo (neuro) consulted, help appreciated * Pureed/dysphagia diet * Head of bed elevation * PT/OT Imaging: * 01/[address]: Large hypodensity at the right brain suggestive of acute right MCA territory infarction. Suspicious for right dense MCA sign. If clinically warranted CTA of the head is suggested to evaluate for right MCA occlusion. * 01/04 CTA head and neck: Focal moderate stenosis approximately 75-80 percent noted at the origin of the right internal carotid artery with possible soft plaque. Mild approximately 55 percent stenosis noted at the origin of the left internal carotid artery. Diffuse atherosclerotic disease and calcification noted at the distal internal carotid arteries bilaterally with foci of mild stenosis noted at the supraclinoid portion of the left internal carotid artery. Diffuse approximately 50 percent stenosis of M1 segment of the right middle cerebral artery. Sharp cut off at the M1 bifurcation of the right middle cerebral artery noted. Occlusion of the anterior temporal M2 segment of the right middle cerebral artery at its origin. * 01/[address]: Acute infarct in the right frontal, parietal and temporal lobes. No acute hemorrhage. Midline shift to the left. Prior images have been requested for direct comparison. Comparison is made to prior report. * 01/04 Echo: Normal study with EF 65-70% * 01/[address]: Large right MCA and LAURI territory infarct changes which involve a large portion of the right cerebral hemisphere. The infarct exerts considerable mass effect with overlying sulcal effacement and compressive effects on the right lateral ventricle particularly the right temporal horn with mild [id number] midline shift. No evidence of acute intracranial hemorrhage. Mild underlying chronic white matter ischemic changes seen left cerebral hemisphere as well. No obstructive hydrocephalus. * 01/05 MRI Brain: Acute infarct changes involving a good portion of the right cerebral hemisphere (distal branches of the right middle cerebral artery and anterior cerebral nor arteries). Questionable early hemorrhagic conversion changes right basal ganglia evidenced by foci of dark T2 signal in these locations on gradient echo sequence with isointense T1 signal. Persistent mass effect with mild midline shift. HEMORRHAGE: Questionable early hemorrhagic conversion changes right basal ganglia evidenced by foci of dark T2 signal in these locations on gradient echo sequence with isointense T1 signal * 4/16 Lower extremity US: negative for DVT * 01/[address]: Stable large right renal infarcted involving the right anterior middle cerebral artery territories as discussed above with stable mass effect effacing the sulci of the right cerebral hemisphere in causing a limited leftward some fall seen shift of 3-4 mm once again. No interval intracranial hemorrhage or expansion of the infarcted territory appreciated. Limited age- related neuro degenerative change reiterated at the left cerebral hemisphere. * 01/[address]: Acute/ subacute right frontotemporoparietal infarct. This involves both the LAURI and MCA territory. No hemorrhage. 2-3 mm midline shift towards the left. No significant change from prior examination. Meds: * Norvasc 10 mg QD * Lisinopril 5 mg QD * ASA 81 mg QD * Plavix 75 mg QD * Valproate 500 mg IV Q12h - will change to PO if OK'd by neurology * Seroquel 25 mg QD * Fluoxetine 20 mg QD * Zinc 220 mg QD Heavy alcohol use * No withdrawal symptoms up to this point * Counseled on cessation Hyperlipidemia * Cholesterol 210, Triglycerides 248, LDL 92, HDL 81 * Crestor 40 mg HS Prophylaxis * Pepcid 20 mg BID * SCDs <Lacy Keenan - Last Filed: 01/14/18 15:02> Objective - Vital Signs/Intake and Output Vital Signs (last 24 hours): Temp Pulse Resp BP Pulse Ox 98.1 F 78 20 131/84 98 01/14/18 12:30 01/14/18 12:30 01/14/18 12:30 01/14/18 12:30 01/14/18 12:30 Intake and Output: 01/14/18 01/14/18 06:59 18:59 Intake Total 800 Output Total 2700 Balance -1900 - Medications Medications: Current Medications Amlodipine Besylate (Norvasc) 10 mg PO DAILY [facility] Last Admin: 01/14/18 10:24 Dose: 10 mg Ascorbic Acid (Vitamin C 500 Mg Tab) 500 mg PO DAILY [facility] Last Admin: 01/14/18 10:24 Dose: 500 mg Aspirin (Aspirin Chewable) 81 mg NG DAILY [facility] Last Admin: 01/14/18 10:24 Dose: 81 mg Clopidogrel Bisulfate (Plavix) 75 mg NG DAILY [facility] Last Admin: 01/14/18 10:25 Dose: 75 mg Famotidine (Pepcid) 20 mg PO BID [facility] Last Admin: 01/14/18 10:24 Dose: 20 mg Fluoxetine HCl (Prozac) 20 mg PO DAILY [facility] Stop: 02/07/18 18:14 Last Admin: 01/14/18 10:25 Dose: 20 mg Folic Acid (Folic Acid) 1 mg PO DAILY [facility] Last Admin: 01/14/18 10:25 Dose: 1 mg Valproate Sodium 500 mg/ (Sodium Chloride) 105 mls @ 0 mls/hr IVPB Q12 [facility] PRN Reason: Per Protocol Last Admin: 01/14/18 10:26 Dose: 100 mls/hr Lisinopril (Zestril) 5 mg PO DAILY [facility] Last Admin: 01/14/18 10:24 Dose: 5 mg Loratadine (Claritin) 10 mg PO DAILY PRN PRN Reason: Allergy symptoms Quetiapine Fumarate (Seroquel) 25 mg PO DAILY [facility] Last Admin: 01/14/18 10:24 Dose: 25 mg Rosuvastatin Calcium (Crestor) 40 mg PO HS [facility] Last Admin: 01/13/18 21:32 Dose: 40 mg Zinc Sulfate (Zinc Sulfate 220 Mg Cap) 220 mg PO DAILY [facility] Last Admin: 01/14/18 10:25 Dose: 220 mg - Labs Labs: 01/14/18 06:25 01/14/18 06:25 PT 12.2 SECONDS (9.7-12.2) 01/04/18 11:43 INR 1.1 01/04/18 11:43 APTT 26 SECONDS (21-34) 01/04/18 11:43 Attending/Attestation - Attestation I have personally seen and examined this patient.: Yes I have fully participated in the care of the patient.: Yes I have reviewed all pertinent clinical information, including history, physical exam and plan: Yes Notes (Text): seen and examined by me,no changes noted patient has no complain. spoke to her son at bedside 1.CVA with left hemiparesis 2.Hyperlipidemia 3.HTN 4.Smoker Patient is a good candidate for rehab.Applying for medicaid d/w CW Discuss with the resident. I agree with the documentation of the resident's assessment and the plan
[2018-01-13 08:18] LABS: BASO # 0.1 K/uL (0.0-0.2); BASO % 0.9 % (0.0-2.0); EOS # 0.1 K/uL (0.0-0.7); EOS % 1.2 % (0.0-4.0); HEMOGLOBIN 10.8 g/dL (11.0-16.0); LYMPH % 34.8 % (20.0-40.0); MEAN CELL VOLUME 96.2 fL (81.0-99.0); MEAN CORPUSCULAR HEMOGLOBIN 32.6 pg (27.0-31.0); MEAN CORPUSCULAR HGB CONC 33.9 g/dL (33.0-37.0); MONO # 0.8 K/uL (0.0-0.8); MONO % 13.3 % (0.0-10.0); NEUT # 2.8 K/uL (1.8-7.0); NEUT % 49.8 % (50.0-75.0); NRBC % 0.1 % (0.0-2.0); RBC 3.32 Mil/uL (3.80-5.20); RED CELL DISTRIBUTION WIDTH 15.2 % (11.5-14.5); WHITE BLOOD COUNT 5.7 K/uL (4.8-10.8)
[2018-01-13 08:37] LABS: ALB/GLOB RATIO 0.9 (1.0-2.1); ALBUMIN 3.5 g/dL (3.5-5.0); ALT/SGPT 34 U/L (9-52); AST/SGOT 71 U/L (14-36); BLOOD UREA NITROGEN 10 mg/dL (7-17); CALCIUM 9.3 mg/dl (8.6-10.4); GFR AFRICAN-AMERICAN > 60; GFR NON-AFRICAN AMERICAN > 60
[2018-01-13] MEDS: Valproate 500 MG in Sodium Chloride 0.9% 100 ML IVPB SCH ×2 (10:12→21:32)
[2018-01-14 06:33] LABS: BASO % 0.5 % (0.0-2.0); EOS # 0.1 K/uL (0.0-0.7); EOS % 1.2 % (0.0-4.0); HEMOGLOBIN 11.3 g/dL (11.0-16.0); LYMPH # 1.7 K/uL (1.0-4.3); LYMPH % 27.8 % (20.0-40.0); MEAN CORPUSCULAR HEMOGLOBIN 32.6 pg (27.0-31.0); MEAN CORPUSCULAR HGB CONC 33.9 g/dL (33.0-37.0); MEAN PLATELET VOLUME 7.4 fL (7.2-11.7); MONO # 0.8 K/uL (0.0-0.8); MONO % 12.7 % (0.0-10.0); NEUT # 3.5 K/uL (1.8-7.0); NEUT % 57.8 % (50.0-75.0); NRBC % 0.1 % (0.0-2.0); RBC 3.47 Mil/uL (3.80-5.20); RED CELL DISTRIBUTION WIDTH 14.7 % (11.5-14.5)
[2018-01-14 06:57] LABS: ALB/GLOB RATIO 0.9 (1.0-2.1); ALBUMIN 3.6 g/dL (3.5-5.0); ALT/SGPT 28 U/L (9-52); AST/SGOT 59 U/L (14-36); BLOOD UREA NITROGEN 9 mg/dL (7-17); CALCIUM 9.6 mg/dl (8.6-10.4); GFR AFRICAN-AMERICAN > 60; GFR NON-AFRICAN AMERICAN > 60
--- NOTE | 2018-01-14 07:18 | CP.PCM.PN ---
<Juanita Yan - Last Filed: 01/14/18 11:28> Subjective - Date & Time of Evaluation Date of Evaluation: 01/14/18 Time of Evaluation: 07:17 - Subjective Subjective: Patient seen and examined at bedside. Patient resting comfortably in bed. She is complaining of headache, nasal/sinus congestion, and sore throat. Patient is asking for allergy medication. I told the patient I ordered Claritin for her but she says she has not been getting it. I told her to make sure she asks the nurse for this. Patient otherwise denies fever, chills, chest pain, cough, SOB, palpitations, abdominal pain, n/v/d/c, and lower extremity pain/swelling. Objective - Vital Signs/Intake and Output Vital Signs (last 24 hours): Temp Pulse Resp BP Pulse Ox 98.6 F 77 20 137/81 97 01/14/18 04:05 01/14/18 04:19 01/14/18 04:05 01/14/18 04:05 01/14/18 04:05 Intake and Output: 01/14/18 01/14/18 06:59 18:59 Intake Total 800 Output Total 2700 Balance -1900 - Medications Medications: Current Medications Amlodipine Besylate (Norvasc) 10 mg PO DAILY [facility] Last Admin: 01/13/18 10:06 Dose: 10 mg Ascorbic Acid (Vitamin C 500 Mg Tab) 500 mg PO DAILY [facility] Last Admin: 01/13/18 10:05 Dose: 500 mg Aspirin (Aspirin Chewable) 81 mg NG DAILY [facility] Last Admin: 01/13/18 10:05 Dose: 81 mg Clopidogrel Bisulfate (Plavix) 75 mg NG DAILY [facility] Last Admin: 01/13/18 10:05 Dose: 75 mg Famotidine (Pepcid) 20 mg PO BID [facility] Last Admin: 01/13/18 17:39 Dose: 20 mg Fluoxetine HCl (Prozac) 20 mg PO DAILY [facility] Stop: 02/07/18 18:14 Last Admin: 01/13/18 10:11 Dose: 20 mg Folic Acid (Folic Acid) 1 mg PO DAILY [facility] Valproate Sodium 500 mg/ (Sodium Chloride) 105 mls @ 0 mls/hr IVPB Q12 [facility] PRN Reason: Per Protocol Last Admin: 01/13/18 21:32 Dose: 100 mls/hr Lisinopril (Zestril) 5 mg PO DAILY [facility] Last Admin: 01/13/18 10:05 Dose: 5 mg Loratadine (Claritin) 10 mg PO DAILY PRN PRN Reason: Allergy symptoms Quetiapine Fumarate (Seroquel) 25 mg PO DAILY [facility] Last Admin: 01/13/18 10:05 Dose: 25 mg Rosuvastatin Calcium (Crestor) 40 mg PO HS [facility] Last Admin: 01/13/18 21:32 Dose: 40 mg Zinc Sulfate (Zinc Sulfate 220 Mg Cap) 220 mg PO DAILY [facility] Last Admin: 01/13/18 10:05 Dose: 220 mg - Labs Labs: 01/14/18 06:25 01/14/18 06:25 PT 12.2 SECONDS (9.7-12.2) 01/04/18 11:43 INR 1.1 01/04/18 11:43 APTT 26 SECONDS (21-34) 01/04/18 11:43 - Additional Findings Additional findings: - Constitutional Appears: Non-toxic, No Acute Distress - Head Exam Head Exam: ATRAUMATIC, NORMAL INSPECTION, NORMOCEPHALIC - Eye Exam Eye Exam: PERRL (sluggish response on the left). EOMI Patient can now move eyes to the left - ENT Exam ENT Exam: Mucous Membranes Moist Throat clear without erythema or exudates - Respiratory Exam Respiratory Exam: Clear to Ausculation Bilateral, NORMAL BREATHING PATTERN - Cardiovascular Exam Cardiovascular Exam: RRR, +S1, +S2 - GI/Abdominal Exam GI & Abdominal Exam: Soft, Normal Bowel Sounds. absent: Distended, Tenderness - Extremities Exam Extremities Exam: absent: Calf Tenderness, Pedal Edema - Neurological Exam Neurological Exam: Alert, Awake. absent: CN II-XII Intact (left facial droop) Neuro motor strength exam: Left Upper Extremity: 0, Right Upper Extremity: 4, Left Lower Extremity: 0, Right Lower Extremity: 4 - Psychiatric Exam Psychiatric exam: Normal Affect, Normal Mood - Skin Skin Exam: Dry, Intact, Normal Color, Warm Assessment and Plan - Assessment and Plan (Free Text) Plan: Disposition: Patient needs acute rehab at discharge, however she has no insurance. Will continue to work with case management for discharge plans. Per PT, patient can not use a wheelchair because she cannot transfer from bed to chair without max assistance. Acute CVA affecting the right parietal/temporal area. * Dr. Castillo (neuro) consulted, help appreciated * Pureed/dysphagia diet * Head of bed elevation * PT/OT Imaging: * 01/[address]: Large hypodensity at the right brain suggestive of acute right MCA territory infarction. Suspicious for right dense MCA sign. If clinically warranted CTA of the head is suggested to evaluate for right MCA occlusion. * 01/04 CTA head and neck: Focal moderate stenosis approximately 75-80 percent noted at the origin of the right internal carotid artery with possible soft plaque. Mild approximately 55 percent stenosis noted at the origin of the left internal carotid artery. Diffuse atherosclerotic disease and calcification noted at the distal internal carotid arteries bilaterally with foci of mild stenosis noted at the supraclinoid portion of the left internal carotid artery. Diffuse approximately 50 percent stenosis of M1 segment of the right middle cerebral artery. Sharp cut off at the M1 bifurcation of the right middle cerebral artery noted. Occlusion of the anterior temporal M2 segment of the right middle cerebral artery at its origin. * 01/[address]: Acute infarct in the right frontal, parietal and temporal lobes. No acute hemorrhage. Midline shift to the left. Prior images have been requested for direct comparison. Comparison is made to prior report. * 01/04 Echo: Normal study with EF 65-70% * 01/[address]: Large right MCA and LAURI territory infarct changes which involve a large portion of the right cerebral hemisphere. The infarct exerts considerable mass effect with overlying sulcal effacement and compressive effects on the right lateral ventricle particularly the right temporal horn with mild [id number] midline shift. No evidence of acute intracranial hemorrhage. Mild underlying chronic white matter ischemic changes seen left cerebral hemisphere as well. No obstructive hydrocephalus. * 01/05 MRI Brain: Acute infarct changes involving a good portion of the right cerebral hemisphere (distal branches of the right middle cerebral artery and anterior cerebral nor arteries). Questionable early hemorrhagic conversion changes right basal ganglia evidenced by foci of dark T2 signal in these locations on gradient echo sequence with isointense T1 signal. Persistent mass effect with mild midline shift. HEMORRHAGE: Questionable early hemorrhagic conversion changes right basal ganglia evidenced by foci of dark T2 signal in these locations on gradient echo sequence with isointense T1 signal * 01/05 Lower extremity US: negative for DVT * 01/[address]: Stable large right renal infarcted involving the right anterior middle cerebral artery territories as discussed above with stable mass effect effacing the sulci of the right cerebral hemisphere in causing a limited leftward some fall seen shift of 3-4 mm once again. No interval intracranial hemorrhage or expansion of the infarcted territory appreciated. Limited age- related neuro degenerative change reiterated at the left cerebral hemisphere. * 01/[address]: Acute/ subacute right frontotemporoparietal infarct. This involves both the LAURI and MCA territory. No hemorrhage. 2-3 mm midline shift towards the left. No significant change from prior examination. Meds: * Norvasc 10 mg QD * Lisinopril 5 mg QD * ASA 81 mg QD * Plavix 75 mg QD * Valproate 500 mg IV Q12h - will change to PO if OK'd by neurology * Seroquel 25 mg QD * Fluoxetine 20 mg QD * Zinc 220 mg QD Heavy alcohol use * No withdrawal symptoms up to this point * Counseled on cessation Hyperlipidemia * Cholesterol 210, Triglycerides 248, LDL 92, HDL 81 * Crestor 40 mg HS Prophylaxis * Pepcid 20 mg BID * SCDs * Claritin PRN allergy symptoms <Lacy Keenan - Last Filed: 01/14/18 15:03> Objective - Vital Signs/Intake and Output Vital Signs (last 24 hours): Temp Pulse Resp BP Pulse Ox 98.1 F 78 20 131/84 98 01/14/18 12:30 01/14/18 12:30 01/14/18 12:30 01/14/18 12:30 01/14/18 12:30 Intake and Output: 01/14/18 01/14/18 06:59 18:59 Intake Total 800 Output Total 2700 Balance -1900 - Medications Medications: Current Medications Amlodipine Besylate (Norvasc) 10 mg PO DAILY [facility] Last Admin: 01/14/18 10:24 Dose: 10 mg Ascorbic Acid (Vitamin C 500 Mg Tab) 500 mg PO DAILY [facility] Last Admin: 01/14/18 10:24 Dose: 500 mg Aspirin (Aspirin Chewable) 81 mg NG DAILY [facility] Last Admin: 01/14/18 10:24 Dose: 81 mg Clopidogrel Bisulfate (Plavix) 75 mg NG DAILY [facility] Last Admin: 01/14/18 10:25 Dose: 75 mg Famotidine (Pepcid) 20 mg PO BID [facility] Last Admin: 01/14/18 10:24 Dose: 20 mg Fluoxetine HCl (Prozac) 20 mg PO DAILY [facility] Stop: 02/07/18 18:14 Last Admin: 01/14/18 10:25 Dose: 20 mg Folic Acid (Folic Acid) 1 mg PO DAILY [facility] Last Admin: 01/14/18 10:25 Dose: 1 mg Valproate Sodium 500 mg/ (Sodium Chloride) 105 mls @ 0 mls/hr IVPB Q12 [facility] PRN Reason: Per Protocol Last Admin: 01/14/18 10:26 Dose: 100 mls/hr Lisinopril (Zestril) 5 mg PO DAILY [facility] Last Admin: 01/14/18 10:24 Dose: 5 mg Loratadine (Claritin) 10 mg PO DAILY PRN PRN Reason: Allergy symptoms Quetiapine Fumarate (Seroquel) 25 mg PO DAILY [facility] Last Admin: 01/14/18 10:24 Dose: 25 mg Rosuvastatin Calcium (Crestor) 40 mg PO HS [facility] Last Admin: 01/13/18 21:32 Dose: 40 mg Zinc Sulfate (Zinc Sulfate 220 Mg Cap) 220 mg PO DAILY [facility] Last Admin: 01/14/18 10:25 Dose: 220 mg - Labs Labs: 01/14/18 06:25 01/14/18 06:25 PT 12.2 SECONDS (9.7-12.2) 01/04/18 11:43 INR 1.1 01/04/18 11:43 APTT 26 SECONDS (21-34) 01/04/18 11:43 Attending/Attestation - Attestation I have personally seen and examined this patient.: Yes I have fully participated in the care of the patient.: Yes I have reviewed all pertinent clinical information, including history, physical exam and plan: Yes Notes (Text): The patient was seen and examined by me,no changes noted patient has no complain. spoke to her sister at bedside 1.CVA with left hemiparesis 2.Hyperlipidemia 3.HTN 4.Smoker Patient is a good candidate for rehab.Applying for medicaid we will follow with [facility] Discuss with the resident. I agree with the documentation of the resident's assessment and the plan
--- NOTE | 2018-01-14 07:22 | CP.PCM.PN ---
Subjective - Date & Time of Evaluation Date of Evaluation: 01/14/18 Time of Evaluation: 07:22 - Subjective Subjective: Ms. Bui is seen and examined at the bedside. She remains alert, oriented in all spheres. She complains of experiencing very mild frontal headache with pain scale 7/10, non-radiating, located in the frontal area, denies any blurred vision, dizziness, lightheadedness, nausea, or vomiting. She is able to follow simple commands with left facial droop, left side hemiplegia, and left side neglect.She is requesting to step up her diet, explained to the patient the importance of re-evaluation of swallowing in order to do that, verbalizes understanding. She has bilateral SCD on her lower extremities.She remains on telesitter for patient safety.There was no untoward events overnight. Objective - Vital Signs/Intake and Output Vital Signs (last 24 hours): Temp Pulse Resp BP Pulse Ox 98.6 F 77 20 137/81 97 01/14/18 04:05 01/14/18 04:19 01/14/18 04:05 01/14/18 04:05 01/14/18 04:05 Intake and Output: 01/14/18 01/14/18 06:59 18:59 Intake Total 800 Output Total 2700 Balance -1900 - Medications Medications: Current Medications Amlodipine Besylate (Norvasc) 10 mg PO DAILY [facility] Last Admin: 01/13/18 10:06 Dose: 10 mg Ascorbic Acid (Vitamin C 500 Mg Tab) 500 mg PO DAILY [facility] Last Admin: 01/13/18 10:05 Dose: 500 mg Aspirin (Aspirin Chewable) 81 mg NG DAILY [facility] Last Admin: 01/13/18 10:05 Dose: 81 mg Clopidogrel Bisulfate (Plavix) 75 mg NG DAILY [facility] Last Admin: 01/13/18 10:05 Dose: 75 mg Famotidine (Pepcid) 20 mg PO BID [facility] Last Admin: 01/13/18 17:39 Dose: 20 mg Fluoxetine HCl (Prozac) 20 mg PO DAILY [facility] Stop: 02/07/18 18:14 Last Admin: 01/13/18 10:11 Dose: 20 mg Folic Acid (Folic Acid) 1 mg PO DAILY [facility] Valproate Sodium 500 mg/ (Sodium Chloride) 105 mls @ 0 mls/hr IVPB Q12 [facility] PRN Reason: Per Protocol Last Admin: 01/13/18 21:32 Dose: 100 mls/hr Lisinopril (Zestril) 5 mg PO DAILY [facility] Last Admin: 01/13/18 10:05 Dose: 5 mg Loratadine (Claritin) 10 mg PO DAILY PRN PRN Reason: Allergy symptoms Quetiapine Fumarate (Seroquel) 25 mg PO DAILY [facility] Last Admin: 01/13/18 10:05 Dose: 25 mg Rosuvastatin Calcium (Crestor) 40 mg PO HS [facility] Last Admin: 01/13/18 21:32 Dose: 40 mg Zinc Sulfate (Zinc Sulfate 220 Mg Cap) 220 mg PO DAILY [facility] Last Admin: 01/13/18 10:05 Dose: 220 mg - Labs Labs: 01/14/18 06:25 01/14/18 06:25 PT 12.2 SECONDS (9.7-12.2) 01/04/18 11:43 INR 1.1 01/04/18 11:43 APTT 26 SECONDS (21-34) 01/04/18 11:43 - Constitutional Appears: No Acute Distress - Head Exam Head Exam: NORMAL INSPECTION - Neurological Exam Neurological Exam: Alert, Awake, Oriented x3 Neuro motor strength exam: Left Upper Extremity: 0, Right Upper Extremity: 4, Left Lower Extremity: 0, Right Lower Extremity: 4 Additional comments: Neurological unchanged from previous examination. Assessment and Plan (1) CVA (cerebral vascular accident) Assessment & Plan: Case discussed with Dr. Castillo, continue all current medical, physical, and occupational therapies. Recommend blood pressure control and maintain head of bed at least 30 degrees. Recommend out of bed to amos chair. Status: Acute
[2018-01-14] MEDS: Valproate 500 MG in Sodium Chloride 0.9% 100 ML IVPB SCH ×2 (10:26→21:46)
[2018-01-14] MEDS ORDERED: guaiFENesin 100 mg/5 ml Syrup UD PO STA (16:43)
--- NOTE | 2018-01-15 07:18 | CP.PCM.PN ---
<Juanita Yan - Last Filed: 01/15/18 10:40> Subjective - Date & Time of Evaluation Date of Evaluation: 01/15/18 Time of Evaluation: 07:18 - Subjective Subjective: Patient seen and examined at bedside. Patient resting comfortably in bed with no new complaints at this time. Patient is still having a right sided frontal headache. She continues to show left sided paralysis, facial droop, and hemineglect. She denies fever, chills, chest pain, SOB, abdominal pain, N/V/D/C , and lower extremity pain/swelling. Objective - Vital Signs/Intake and Output Vital Signs (last 24 hours): Temp Pulse Resp BP Pulse Ox 98.2 F 69 20 144/82 97 01/15/18 05:00 01/15/18 05:00 01/15/18 05:00 01/15/18 05:00 01/14/18 23:40 Intake and Output: 01/15/18 01/15/18 06:59 18:59 Output Total 1300 Balance -1300 - Medications Medications: Current Medications Amlodipine Besylate (Norvasc) [address] [facility] Last Admin: 01/14/18 10:24 Dose: 10 mg Ascorbic Acid (Vitamin C 500 Mg Tab) [address] [facility] Last Admin: 01/14/18 10:24 Dose: 500 mg Aspirin (Aspirin Chewable) [address] [facility] Last Admin: 01/14/18 10:24 Dose: 81 mg Clopidogrel Bisulfate (Plavix) [address] [facility] Last Admin: 01/14/18 10:25 Dose: 75 mg Famotidine (Pepcid) [address] [facility] Last Admin: 01/14/18 18:11 Dose: 20 mg Fluoxetine HCl (Prozac) [address] [facility] Stop: 02/07/18 18:14 Last Admin: 01/14/18 10:25 Dose: 20 mg Folic Acid (Folic Acid) [address] [facility] Last Admin: 01/14/18 10:25 Dose: 1 mg Valproate Sodium 500 mg/ (Sodium Chloride) 105 mls @ 0 mls/hr IVPB Q12 [facility] PRN Reason: Per Protocol Last Admin: 01/14/18 21:46 Dose: 100 mls/hr Lisinopril (Zestril) [address] [facility] Last Admin: 01/14/18 10:24 Dose: 5 mg Loratadine (Claritin) 10 mg PO DAILY PRN PRN Reason: Allergy symptoms Quetiapine Fumarate (Seroquel) [address] [facility] Last Admin: 01/14/18 10:24 Dose: 25 mg Rosuvastatin Calcium (Crestor) [address] [facility] Last Admin: 01/14/18 21:40 Dose: 40 mg Zinc Sulfate (Zinc Sulfate 220 Mg Cap) [address] [facility] Last Admin: 01/14/18 10:25 Dose: 220 mg - Labs Labs: 01/14/18 06:25 01/14/18 06:25 PT 12.2 SECONDS (9.7-12.2) 01/04/18 11:43 INR 1.1 01/04/18 11:43 APTT 26 SECONDS (21-34) 01/04/18 11:43 - Additional Findings Additional findings: - Constitutional Appears: Non-toxic, No Acute Distress - Head Exam Head Exam: ATRAUMATIC, NORMAL INSPECTION, NORMOCEPHALIC - Eye Exam Eye Exam: PERRL (sluggish response on the left). EOMI - ENT Exam ENT Exam: Mucous Membranes Moist - Respiratory Exam Respiratory Exam: Clear to Ausculation Bilateral, NORMAL BREATHING PATTERN - Cardiovascular Exam Cardiovascular Exam: RRR, +S1, +S2 - GI/Abdominal Exam GI & Abdominal Exam: Soft, Normal Bowel Sounds. absent: Distended, Tenderness - Extremities Exam Extremities Exam: absent: Calf Tenderness, Pedal Edema - Neurological Exam Neurological Exam: Alert, Awake. absent: CN II-XII Intact (left facial droop) Neuro motor strength exam: Left Upper Extremity: 0, Right Upper Extremity: 4, Left Lower Extremity: 0, Right Lower Extremity: 4 - Psychiatric Exam Psychiatric exam: Normal Affect, Normal Mood - Skin Skin Exam: Dry, Intact, Normal Color, Warm Assessment and Plan - Assessment and Plan (Free Text) Plan: Disposition: Patient needs acute rehab at discharge, however she has no insurance. Will continue to work with case management for discharge plans. Per PT, patient can not use a wheelchair because she cannot transfer from bed to chair without max assistance. Acute CVA affecting the right parietal/temporal area. * Dr. Castillo (neuro) consulted, help appreciated * Pureed/dysphagia diet * Head of bed elevation * PT/OT Imaging: * 01/[address]: Large hypodensity at the right brain suggestive of acute right MCA territory infarction. Suspicious for right dense MCA sign. If clinically warranted CTA of the head is suggested to evaluate for right MCA occlusion. * 01/04 CTA head and neck: Focal moderate stenosis approximately 75-80 percent noted at the origin of the right internal carotid artery with possible soft plaque. Mild approximately 55 percent stenosis noted at the origin of the left internal carotid artery. Diffuse atherosclerotic disease and calcification noted at the distal internal carotid arteries bilaterally with foci of mild stenosis noted at the supraclinoid portion of the left internal carotid artery. Diffuse approximately 50 percent stenosis of M1 segment of the right middle cerebral artery. Sharp cut off at the M1 bifurcation of the right middle cerebral artery noted. Occlusion of the anterior temporal M2 segment of the right middle cerebral artery at its origin. * 01/[address]: Acute infarct in the right frontal, parietal and temporal lobes. No acute hemorrhage. Midline shift to the left. Prior images have been requested for direct comparison. Comparison is made to prior report. * 01/04 Echo: Normal study with EF 65-70% * 01/[address]: Large right MCA and LAURI territory infarct changes which involve a large portion of the right cerebral hemisphere. The infarct exerts considerable mass effect with overlying sulcal effacement and compressive effects on the right lateral ventricle particularly the right temporal horn with mild [id number] midline shift. No evidence of acute intracranial hemorrhage. Mild underlying chronic white matter ischemic changes seen left cerebral hemisphere as well. No obstructive hydrocephalus. * 01/05 MRI Brain: Acute infarct changes involving a good portion of the right cerebral hemisphere (distal branches of the right middle cerebral artery and anterior cerebral nor arteries). Questionable early hemorrhagic conversion changes right basal ganglia evidenced by foci of dark T2 signal in these locations on gradient echo sequence with isointense T1 signal. Persistent mass effect with mild midline shift. HEMORRHAGE: Questionable early hemorrhagic conversion changes right basal ganglia evidenced by foci of dark T2 signal in these locations on gradient echo sequence with isointense T1 signal * 01/05 Lower extremity US: negative for DVT * 01/[address]: Stable large right renal infarcted involving the right anterior middle cerebral artery territories as discussed above with stable mass effect effacing the sulci of the right cerebral hemisphere in causing a limited leftward some fall seen shift of 3-4 mm once again. No interval intracranial hemorrhage or expansion of the infarcted territory appreciated. Limited age- related neuro degenerative change reiterated at the left cerebral hemisphere. * 01/[address]: Acute/ subacute right frontotemporoparietal infarct. This involves both the LAURI and MCA territory. No hemorrhage. 2-3 mm midline shift towards the left. No significant change from prior examination. Meds: * Norvasc 10 mg QD * Lisinopril 5 mg QD * ASA 81 mg QD * Plavix 75 mg QD * Valproate 500 mg IV Q12h - will change to PO if OK'd by neurology * Seroquel 25 mg QD * Fluoxetine 20 mg QD * Zinc 220 mg QD Headache * Per Neuro, was given 1 dose of decadron and mag sulfate today with plan to repeat Head CT Heavy alcohol use * No withdrawal symptoms up to this point * Counseled on cessation Hyperlipidemia * Cholesterol 210, Triglycerides 248, LDL 92, HDL 81 * Crestor 40 mg HS Prophylaxis * Pepcid 20 mg BID * SCDs * Claritin PRN allergy symptoms <Lacy Keenan - Last Filed: 01/15/18 16:55> Objective - Vital Signs/Intake and Output Vital Signs (last 24 hours): Temp Pulse Resp BP Pulse Ox 97.4 F L 90 20 129/87 98 01/15/18 15:32 01/15/18 15:32 01/15/18 15:32 01/15/18 15:32 01/15/18 15:32 Intake and Output: 01/15/18 01/15/18 06:59 18:59 Intake Total 120 700 Output Total 1300 200 Balance -1180 500 - Medications Medications: Current Medications Amlodipine Besylate (Norvasc) [address] [facility] Last Admin: 01/15/18 10:38 Dose: 10 mg Ascorbic Acid (Vitamin C 500 Mg Tab) [address] [facility] Last Admin: 01/15/18 10:37 Dose: 500 mg Aspirin (Aspirin Chewable) [address] [facility] Last Admin: 01/15/18 10:38 Dose: 81 mg Clopidogrel Bisulfate (Plavix) [address] [facility] Last Admin: 01/15/18 10:38 Dose: 75 mg Famotidine (Pepcid) [address] [facility] Last Admin: 01/15/18 10:38 Dose: 20 mg Fluoxetine HCl (Prozac) [address] [facility] Stop: 02/07/18 18:14 Last Admin: 01/15/18 10:38 Dose: 20 mg Folic Acid (Folic Acid) [address] [facility] Last Admin: 01/15/18 10:38 Dose: 1 mg Valproate Sodium 500 mg/ (Sodium Chloride) 105 mls @ 0 mls/hr IVPB Q12 [facility] PRN Reason: Per Protocol Last Admin: 01/15/18 10:25 Dose: 100 mls/hr Lisinopril (Zestril) [address] [facility] Last Admin: 01/15/18 10:38 Dose: 5 mg Loratadine (Claritin) 10 mg PO DAILY PRN PRN Reason: Allergy symptoms Quetiapine Fumarate (Seroquel) [address] [facility] Last Admin: 01/15/18 13:35 Dose: Not Given Rosuvastatin Calcium (Crestor) [address] [facility] Last Admin: 01/14/18 21:40 Dose: 40 mg Zinc Sulfate (Zinc Sulfate 220 Mg Cap) [address] [facility] Last Admin: 01/15/18 10:38 Dose: 220 mg - Labs Labs: 01/14/18 06:25 01/14/18 06:25 PT 12.2 SECONDS (9.7-12.2) 01/04/18 11:43 INR 1.1 01/04/18 11:43 APTT 26 SECONDS (21-34) 01/04/18 11:43 Attending/Attestation - Attestation I have personally seen and examined this patient.: Yes I have fully participated in the care of the patient.: Yes I have reviewed all pertinent clinical information, including history, physical exam and plan: Yes Notes (Text): Seen and examined Had headache this morining. CT brain done.No acute bleeding,no new infarct Patient was told about the report.she thinks headache may be due to Sleep disturbance. 1.CVA with left hemiparesis Pending rehab placement /medicaid continue asprin,statin and plavix On Valproat and seroquel 2.Hypertension continue amlodipine and lisinopril 3.hyperlipidemia 4.DVT prophy-not on DVT prophylasix due to questionable hemorrhagic conversion on infarct On pepcid for GI d/w Resident.follow SW for medicaid and placement
--- NOTE | 2018-01-15 08:14 | CP.PCM.PN ---
Subjective - Date & Time of Evaluation Date of Evaluation: 01/15/18 Time of Evaluation: 08:14 - Subjective Subjective: Ms. Bui is seen and examined at the bedside. She remains alert, oriented in all spheres. She complains of experiencing very mild frontal headache with pain scale 8/10, non-radiating, located in the frontal area, denies any blurred vision, dizziness, lightheadedness, nausea, or vomiting. She is able to follow simple commands with left facial droop, left side hemiplegia, and left side neglect.She is requesting to step up her diet, explained to the patient the importance of re-evaluation of swallowing in order to do that, verbalizes understanding. She has bilateral SCD on her lower extremities.She remains on telesitter for patient safety. She had an episode of abdominal pain yesterday which toradol was given with relief.There was no untoward events overnight. Objective - Vital Signs/Intake and Output Vital Signs (last 24 hours): Temp Pulse Resp BP Pulse Ox 98.2 F 69 20 144/82 97 01/15/18 05:00 01/15/18 05:00 01/15/18 05:00 01/15/18 05:00 01/14/18 23:40 Intake and Output: 01/15/18 01/15/18 06:59 18:59 Output Total 1300 Balance -1300 - Medications Medications: Current Medications Amlodipine Besylate (Norvasc) 10 mg PO DAILY [facility] Last Admin: 01/14/18 10:24 Dose: 10 mg Ascorbic Acid (Vitamin C 500 Mg Tab) 500 mg PO DAILY [facility] Last Admin: 01/14/18 10:24 Dose: 500 mg Aspirin (Aspirin Chewable) 81 mg NG DAILY [facility] Last Admin: 01/14/18 10:24 Dose: 81 mg Clopidogrel Bisulfate (Plavix) 75 mg NG DAILY [facility] Last Admin: 01/14/18 10:25 Dose: 75 mg Dexamethasone (Decadron Inj) 10 mg IVP ONCE ONE Stop: 01/15/18 08:14 Famotidine (Pepcid) 20 mg PO BID [facility] Last Admin: 01/14/18 18:11 Dose: 20 mg Fluoxetine HCl (Prozac) 20 mg PO DAILY [facility] Stop: 02/07/18 18:14 Last Admin: 01/14/18 10:25 Dose: 20 mg Folic Acid (Folic Acid) 1 mg PO DAILY [facility] Last Admin: 01/14/18 10:25 Dose: 1 mg Valproate Sodium 500 mg/ (Sodium Chloride) 105 mls @ 0 mls/hr IVPB Q12 [facility] PRN Reason: Per Protocol Last Admin: 01/14/18 21:46 Dose: 100 mls/hr Magnesium Sulfate/Dextrose (Magnesium Sulfate 1 Gm/100 Ml D5w) 1 gm in 100 mls @ 300 mls/hr IVPB Q30M [facility] Stop: 01/15/18 09:04 Lisinopril (Zestril) 5 mg PO DAILY [facility] Last Admin: 01/14/18 10:24 Dose: 5 mg Loratadine (Claritin) 10 mg PO DAILY PRN PRN Reason: Allergy symptoms Quetiapine Fumarate (Seroquel) 25 mg PO DAILY [facility] Last Admin: 01/14/18 10:24 Dose: 25 mg Rosuvastatin Calcium (Crestor) 40 mg PO HS [facility] Last Admin: 01/14/18 21:40 Dose: 40 mg Zinc Sulfate (Zinc Sulfate 220 Mg Cap) 220 mg PO DAILY [facility] Last Admin: 01/14/18 10:25 Dose: 220 mg - Labs Labs: 01/14/18 06:25 01/14/18 06:25 PT 12.2 SECONDS (9.7-12.2) 01/04/18 11:43 INR 1.1 01/04/18 11:43 APTT 26 SECONDS (21-34) 01/04/18 11:43 - Constitutional Appears: No Acute Distress - Head Exam Head Exam: NORMAL INSPECTION - Neurological Exam Neurological Exam: Alert, Awake, Oriented x3 Neuro motor strength exam: Left Upper Extremity: 0, Right Upper Extremity: 4, Left Lower Extremity: 0, Right Lower Extremity: 4 Additional comments: Neurological unchanged from previous examination. Assessment and Plan (1) CVA (cerebral vascular accident) Assessment & Plan: Case discussed with Dr. Castillo, continue all current medical, physical, and occupational therapies. Recommend blood pressure control and maintain head of bed at least 30 degrees. Recommend out of bed to amos chair. Status: Acute (2) Headache Assessment & Plan: Case discussed with Dr. Castillo, recommend magnesium sulfate 2 gms IVPB for one dose and decadron 10 mg IV for one dose, and repeat CT scan of the head without contrast. Status: Acute
[2018-01-15] MEDS: Magnesium Sulfate 1 gm in D5W 1 GM/100 ML BAG IVPB SCH ×2 (08:59→12:04)
[2018-01-15] MEDS: Valproate 500 MG in Sodium Chloride 0.9% 100 ML IVPB SCH ×2 (10:25→21:48)
--- NOTE | 2018-01-15 12:21 | CT ---
PROCEDURE: CT HEAD WITHOUT CONTRAST. HISTORY: headache, follow up ischemic stroke COMPARISON: None available. TECHNIQUE: Axial computed tomography images were obtained through the head/brain without intravenous contrast. Radiation dose: Total exam DLP = 1009.67 mGy-cm. This CT exam was performed using one or more of the following dose reduction techniques: Automated exposure control, adjustment of the mA and/or kV according to patient size, and/or use of iterative reconstruction technique. FINDINGS: HEMORRHAGE: No intracranial hemorrhage. BRAIN: No intracranial mass. Previously noted right LAURI and MCA infarcts are less prominent. There is some residual patchy low-attenuation particularly in the MCA territory. There is high attenuation seen along the cortical ribbon in both LAURI and MCA distribution likely representing cortical laminar necrosis. . VENTRICLES: No hydrocephalus. Minimal midline shift towards the left by approximately 1 mm. No downward herniation. Basilar cisterns are preserved. CALVARIUM: Unremarkable. PARANASAL SINUSES: Unremarkable as visualized. No significant inflammatory changes. MASTOID AIR CELLS: Unremarkable as visualized. No inflammatory changes. OTHER FINDINGS: None. IMPRESSION: Expected changes status post right frontotemporoparietal infarct now with cortical laminar necrosis. No hemorrhage. Minimal midline shift.
[2018-01-15 16:29] LABS: BASO % 0.2 % (0.0-2.0); HEMOGLOBIN 11.7 g/dL (11.0-16.0); LYMPH # 0.5 K/uL (1.0-4.3); LYMPH % 9.3 % (20.0-40.0); MEAN CELL VOLUME 95.4 fL (81.0-99.0); MEAN CORPUSCULAR HEMOGLOBIN 32.9 pg (27.0-31.0); MEAN CORPUSCULAR HGB CONC 34.5 g/dL (33.0-37.0); MEAN PLATELET VOLUME 7.7 fL (7.2-11.7); MONO % 0.8 % (0.0-10.0); NEUT % 89.7 % (50.0-75.0); NRBC % 0.1 % (0.0-2.0); PLATELET COUNT 453 K/uL (130-400); RBC 3.57 Mil/uL (3.80-5.20); RED CELL DISTRIBUTION WIDTH 14.4 % (11.5-14.5); WHITE BLOOD COUNT 5.6 K/uL (4.8-10.8)
[2018-01-15 16:47] LABS: ALBUMIN 3.9 g/dL (3.5-5.0); ALT/SGPT 32 U/L (9-52); AST/SGOT 48 U/L (14-36); BLOOD UREA NITROGEN 14 mg/dL (7-17); CALCIUM 9.5 mg/dl (8.6-10.4); GFR AFRICAN-AMERICAN > 60; GFR NON-AFRICAN AMERICAN > 60
[2018-01-15 17:46] LABS: BANDS 1 % (0-2); LYMPHOCYTE 11 % (20-40); MICROCYTOSIS SLIGHT; MONOCYTE 3 % (0-10); NEUTROPHIL 85 % (50-75); PLATELET ESTIMATE NORMAL (NORMAL); TOTAL CELLS COUNTED 100
[2018-01-15 17:47] LABS: HYPOCHROMIC SLIGHT
[2018-01-16] MEDS ORDERED: Acetaminophen 650mg/20.3ml solution UD PO STA ×2 (06:00→06:08)
--- NOTE | 2018-01-16 06:55 | CP.PCM.PN ---
Subjective - Date & Time of Evaluation Date of Evaluation: 01/16/18 Time of Evaluation: 06:54 - Subjective Subjective: Ms. Bui is seen and examined at the bedside. She remains alert, oriented in all spheres. She complains of experiencing very mild frontal headache with pain scale 1/10, non-radiating, located in the frontal area, denies any blurred vision, dizziness, lightheadedness, nausea, or vomiting. She further claims due to being awake most of the night.She is able to follow simple commands with left facial droop, left side hemiplegia, and left side neglect.She is requesting to step up her diet, explained to the patient the importance of re- evaluation of swallowing in order to do that, verbalizes understanding. She has bilateral SCD on her lower extremities.She remains on telesitter for patient safety. CT scan of the head done yesterday showed expected changes status post right frontotemporoparietal infarct with cortical nectrosis. There is no hemorrhage. There is a minimal midline shift. There was untoward events overnight. Objective - Vital Signs/Intake and Output Vital Signs (last 24 hours): Temp Pulse Resp BP Pulse Ox 97.9 F 82 20 156/86 H 98 01/16/18 04:54 01/16/18 04:54 01/16/18 04:54 01/16/18 04:54 01/16/18 04:54 Intake and Output: 01/15/18 01/16/18 18:59 06:59 Intake Total 700 Output Total 200 400 Balance 500 -400 - Medications Medications: Current Medications Amlodipine Besylate (Norvasc) 10 mg PO DAILY [facility] Last Admin: 01/15/18 10:38 Dose: 10 mg Ascorbic Acid (Vitamin C 500 Mg Tab) 500 mg PO DAILY [facility] Last Admin: 01/15/18 10:37 Dose: 500 mg Aspirin (Aspirin Chewable) 81 mg NG DAILY [facility] Last Admin: 01/15/18 10:38 Dose: 81 mg Clopidogrel Bisulfate (Plavix) 75 mg NG DAILY [facility] Last Admin: 01/15/18 10:38 Dose: 75 mg Famotidine (Pepcid) 20 mg PO BID [facility] Last Admin: 01/15/18 18:14 Dose: 20 mg Fluoxetine HCl (Prozac) 20 mg PO DAILY [facility] Stop: 02/07/18 18:14 Last Admin: 01/15/18 10:38 Dose: 20 mg Folic Acid (Folic Acid) 1 mg PO DAILY [facility] Last Admin: 01/15/18 10:38 Dose: 1 mg Valproate Sodium 500 mg/ (Sodium Chloride) 105 mls @ 0 mls/hr IVPB Q12 [facility] PRN Reason: Per Protocol Last Admin: 01/15/18 21:48 Dose: 100 mls/hr Lisinopril (Zestril) 5 mg PO DAILY [facility] Last Admin: 01/15/18 10:38 Dose: 5 mg Loratadine (Claritin) 10 mg PO DAILY PRN PRN Reason: Allergy symptoms Last Admin: 01/15/18 19:44 Dose: 10 mg Quetiapine Fumarate (Seroquel) 25 mg PO DAILY [facility] Last Admin: 01/15/18 13:35 Dose: Not Given Rosuvastatin Calcium (Crestor) 40 mg PO HS [facility] Last Admin: 01/15/18 21:17 Dose: 40 mg Zinc Sulfate (Zinc Sulfate 220 Mg Cap) 220 mg PO DAILY [facility] Last Admin: 01/15/18 10:38 Dose: 220 mg - Labs Labs: 01/15/18 16:24 01/15/18 16:24 PT 12.2 SECONDS (9.7-12.2) 01/04/18 11:43 INR 1.1 01/04/18 11:43 APTT 26 SECONDS (21-34) 01/04/18 11:43 - Constitutional Appears: No Acute Distress - Head Exam Head Exam: NORMAL INSPECTION - Neurological Exam Neurological Exam: Alert, Awake, Oriented x3 Neuro motor strength exam: Left Upper Extremity: 0, Right Upper Extremity: 5, Left Lower Extremity: 0, Right Lower Extremity: 5 Additional comments: Neurological unchanged from previous examination. Assessment and Plan (1) CVA (cerebral vascular accident) Assessment & Plan: Case discussed with Dr. Castillo, continue all current medical, physical, occupational, and speech therapies. Recommend monitoring valproic level. Status: Acute
[2018-01-16 08:25] LABS: HEMOGLOBIN 11.7 g/dL (11.0-16.0); MEAN CELL VOLUME 95.7 fL (81.0-99.0); MEAN CORPUSCULAR HEMOGLOBIN 33.6 pg (27.0-31.0); MEAN CORPUSCULAR HGB CONC 35.1 g/dL (33.0-37.0); RBC 3.48 Mil/uL (3.80-5.20); RED CELL DISTRIBUTION WIDTH 14.7 % (11.5-14.5)
[2018-01-16 08:26] LABS: BASO % 0.2 % (0.0-2.0); LYMPH # 1.1 K/uL (1.0-4.3); LYMPH % 12.2 % (20.0-40.0); MONO # 0.7 K/uL (0.0-0.8); MONO % 7.2 % (0.0-10.0); NEUT # 7.2 K/uL (1.8-7.0); NEUT % 80.4 % (50.0-75.0)
[2018-01-16 08:52] LABS: ALB/GLOB RATIO 0.9 (1.0-2.1); ALBUMIN 3.7 g/dL (3.5-5.0); ALT/SGPT 32 U/L (9-52); AST/SGOT 44 U/L (14-36); BLOOD UREA NITROGEN 13 mg/dL (7-17); CALCIUM 9.9 mg/dl (8.6-10.4); GFR AFRICAN-AMERICAN > 60; GFR NON-AFRICAN AMERICAN > 60
[2018-01-16] MEDS: Divalproex 500 mg DR Tab PO SCH ×2 (09:44→22:19)
--- NOTE | 2018-01-16 12:54 | CP.PCM.PN ---
<Chelle Sanches - Last Filed: 01/16/18 12:55> Subjective - Date & Time of Evaluation Date of Evaluation: 01/16/18 Time of Evaluation: 07:00 - Subjective Subjective: PGY1- Medicine Note Patient seen and examined at bedside. Patient resting comfortably in bed with no new complaints at this time. Patient is still having a right sided frontal headache. She continues to show left sided paralysis, facial droop, and hemineglect. She denies fever, chills, chest pain, SOB, abdominal pain, N/V/D/C , and lower extremity pain/swelling. Objective - Vital Signs/Intake and Output Vital Signs (last 24 hours): Temp Pulse Resp BP Pulse Ox 98.3 F 82 18 153/85 H 99 01/16/18 07:00 01/16/18 10:50 01/16/18 07:00 01/16/18 10:50 01/16/18 07:00 Intake and Output: 01/16/18 01/16/18 06:59 18:59 Intake Total 120 Output Total 1050 Balance -930 - Medications Medications: Current Medications Amlodipine Besylate (Norvasc) 10 mg PO DAILY [facility] Last Admin: 01/16/18 09:42 Dose: 10 mg Ascorbic Acid (Vitamin C 500 Mg Tab) 500 mg PO DAILY [facility] Last Admin: 01/16/18 09:42 Dose: 500 mg Aspirin (Aspirin Chewable) 81 mg NG DAILY [facility] Last Admin: 01/16/18 09:41 Dose: 81 mg Clopidogrel Bisulfate (Plavix) 75 mg NG DAILY [facility] Last Admin: 01/16/18 09:42 Dose: 75 mg Divalproex Sodium (Depakote Dr) 500 mg PO Q12 [facility] Last Admin: 01/16/18 09:44 Dose: 500 mg Famotidine (Pepcid) 20 mg PO BID [facility] Last Admin: 01/16/18 09:43 Dose: 20 mg Fluoxetine HCl (Prozac) 20 mg PO DAILY [facility] Stop: 02/07/18 18:14 Last Admin: 01/16/18 09:42 Dose: 20 mg Folic Acid (Folic Acid) 1 mg PO DAILY [facility] Last Admin: 01/16/18 09:42 Dose: 1 mg Lisinopril (Zestril) 5 mg PO DAILY [facility] Last Admin: 01/16/18 09:41 Dose: 5 mg Loratadine (Claritin) 10 mg PO DAILY PRN PRN Reason: Allergy symptoms Last Admin: 01/15/18 19:44 Dose: 10 mg Quetiapine Fumarate (Seroquel) 25 mg PO DAILY [facility] Last Admin: 01/16/18 10:50 Dose: 25 mg Rosuvastatin Calcium (Crestor) 40 mg PO HS [facility] Last Admin: 01/15/18 21:17 Dose: 40 mg Zinc Sulfate (Zinc Sulfate 220 Mg Cap) 220 mg PO DAILY [facility] Last Admin: 01/16/18 09:42 Dose: 220 mg - Labs Labs: 01/16/18 08:13 01/16/18 08:13 PT 12.2 SECONDS (9.7-12.2) 01/04/18 11:43 INR 1.1 01/04/18 11:43 APTT 26 SECONDS (21-34) 01/04/18 11:43 - Additional Findings Additional findings: - Constitutional Appears: Non-toxic, No Acute Distress - Head Exam Head Exam: ATRAUMATIC, NORMAL INSPECTION, NORMOCEPHALIC - Eye Exam Eye Exam: PERRL (sluggish response on the left). EOMI - ENT Exam ENT Exam: Mucous Membranes Moist - Respiratory Exam Respiratory Exam: Clear to Ausculation Bilateral, NORMAL BREATHING PATTERN - Cardiovascular Exam Cardiovascular Exam: RRR, +S1, +S2 - GI/Abdominal Exam GI & Abdominal Exam: Soft, Normal Bowel Sounds. absent: Distended, Tenderness - Extremities Exam Extremities Exam: absent: Calf Tenderness, Pedal Edema - Neurological Exam Neurological Exam: Alert, Awake. absent: CN II-XII Intact (left facial droop) Neuro motor strength exam: Left Upper Extremity: 0, Right Upper Extremity: 4, Left Lower Extremity: 0, Right Lower Extremity: 4 - Psychiatric Exam Psychiatric exam: Normal Affect, Normal Mood - Skin Skin Exam: Dry, Intact, Normal Color, Warm Assessment and Plan - Assessment and Plan (Free Text) Assessment: Disposition: Patient needs acute rehab at discharge, however she has no insurance. Will continue to work with case management for discharge plans. Per PT, patient can not use a wheelchair because she cannot transfer from bed to chair without max assistance. Acute CVA affecting the right parietal/temporal area. * Dr. Castillo (neuro) consulted, help appreciated * Pureed/dysphagia diet * Head of bed elevation * PT/OT Imaging: * 01/[address]: Large hypodensity at the right brain suggestive of acute right MCA territory infarction. Suspicious for right dense MCA sign. If clinically warranted CTA of the head is suggested to evaluate for right MCA occlusion. * 01/04 CTA head and neck: Focal moderate stenosis approximately 75-80 percent noted at the origin of the right internal carotid artery with possible soft plaque. Mild approximately 55 percent stenosis noted at the origin of the left internal carotid artery. Diffuse atherosclerotic disease and calcification noted at the distal internal carotid arteries bilaterally with foci of mild stenosis noted at the supraclinoid portion of the left internal carotid artery. Diffuse approximately 50 percent stenosis of M1 segment of the right middle cerebral artery. Sharp cut off at the M1 bifurcation of the right middle cerebral artery noted. Occlusion of the anterior temporal M2 segment of the right middle cerebral artery at its origin. * 01/[address]: Acute infarct in the right frontal, parietal and temporal lobes. No acute hemorrhage. Midline shift to the left. Prior images have been requested for direct comparison. Comparison is made to prior report. * 01/04 Echo: Normal study with EF 65-70% * 01/[address]: Large right MCA and LAURI territory infarct changes which involve a large portion of the right cerebral hemisphere. The infarct exerts considerable mass effect with overlying sulcal effacement and compressive effects on the right lateral ventricle particularly the right temporal horn with mild [id number] midline shift. No evidence of acute intracranial hemorrhage. Mild underlying chronic white matter ischemic changes seen left cerebral hemisphere as well. No obstructive hydrocephalus. * 01/05 MRI Brain: Acute infarct changes involving a good portion of the right cerebral hemisphere (distal branches of the right middle cerebral artery and anterior cerebral nor arteries). Questionable early hemorrhagic conversion changes right basal ganglia evidenced by foci of dark T2 signal in these locations on gradient echo sequence with isointense T1 signal. Persistent mass effect with mild midline shift. HEMORRHAGE: Questionable early hemorrhagic conversion changes right basal ganglia evidenced by foci of dark T2 signal in these locations on gradient echo sequence with isointense T1 signal * 01/05 Lower extremity US: negative for DVT * 01/[address]: Stable large right renal infarcted involving the right anterior middle cerebral artery territories as discussed above with stable mass effect effacing the sulci of the right cerebral hemisphere in causing a limited leftward some fall seen shift of 3-4 mm once again. No interval intracranial hemorrhage or expansion of the infarcted territory appreciated. Limited age- related neuro degenerative change reiterated at the left cerebral hemisphere. * 01/[address]: Acute/ subacute right frontotemporoparietal infarct. This involves both the LAURI and MCA territory. No hemorrhage. 2-3 mm midline shift towards the left. No significant change from prior examination. Meds: * Norvasc 10 mg QD * Lisinopril 5 mg QD * ASA 81 mg QD * Plavix 75 mg QD * Valproate 500 mg IV Q12h - will change to PO if OK'd by neurology * Seroquel 25 mg QD * Fluoxetine 20 mg QD * Zinc 220 mg QD Headache * Per Neuro, was given 1 dose of decadron and mag sulfate today with plan to repeat Head CT Heavy alcohol use * No withdrawal symptoms up to this point * Counseled on cessation Hyperlipidemia * Cholesterol 210, Triglycerides 248, LDL 92, HDL 81 * Crestor 40 mg HS Prophylaxis * Pepcid 20 mg BID * SCDs * Claritin PRN allergy symptoms <Lacy Keenan - Last Filed: 01/18/18 20:08> Objective - Vital Signs/Intake and Output Vital Signs (last 24 hours): Temp Pulse Resp BP Pulse Ox 98.3 F 80 18 143/88 99 01/16/18 07:00 01/16/18 12:45 01/16/18 07:00 01/16/18 12:45 01/16/18 07:00 Intake and Output: 01/16/18 01/16/18 06:59 18:59 Intake Total 120 400 Output Total 1050 200 Balance -930 200 - Medications Medications: Current Medications Amlodipine Besylate (Norvasc) 10 mg PO DAILY [facility] Last Admin: 01/16/18 09:42 Dose: 10 mg Ascorbic Acid (Vitamin C 500 Mg Tab) 500 mg PO DAILY [facility] Last Admin: 01/16/18 09:42 Dose: 500 mg Aspirin (Aspirin Chewable) 81 mg NG DAILY [facility] Last Admin: 01/16/18 09:41 Dose: 81 mg Clopidogrel Bisulfate (Plavix) 75 mg NG DAILY [facility] Last Admin: 01/16/18 09:42 Dose: 75 mg Divalproex Sodium (Depakote Dr) 500 mg PO Q12 [facility] Last Admin: 01/16/18 09:44 Dose: 500 mg Famotidine (Pepcid) 20 mg PO BID [facility] Last Admin: 01/16/18 09:43 Dose: 20 mg Fluoxetine HCl (Prozac) 20 mg PO DAILY [facility] Stop: 02/07/18 18:14 Last Admin: 01/16/18 09:42 Dose: 20 mg Folic Acid (Folic Acid) 1 mg PO DAILY [facility] Last Admin: 01/16/18 09:42 Dose: 1 mg Lisinopril (Zestril) 5 mg PO DAILY [facility] Last Admin: 01/16/18 09:41 Dose: 5 mg Loratadine (Claritin) 10 mg PO DAILY PRN PRN Reason: Allergy symptoms Last Admin: 01/15/18 19:44 Dose: 10 mg Quetiapine Fumarate (Seroquel) 25 mg PO DAILY [facility] Last Admin: 01/16/18 10:50 Dose: 25 mg Rosuvastatin Calcium (Crestor) 40 mg PO HS [facility] Last Admin: 01/15/18 21:17 Dose: 40 mg Zinc Sulfate (Zinc Sulfate 220 Mg Cap) 220 mg PO DAILY [facility] Last Admin: 01/16/18 09:42 Dose: 220 mg - Labs Labs: 01/16/18 08:13 01/16/18 08:13 PT 12.2 SECONDS (9.7-12.2) 01/04/18 11:43 INR 1.1 01/04/18 11:43 APTT 26 SECONDS (21-34) 01/04/18 11:43 Attending/Attestation - Attestation I have personally seen and examined this patient.: Yes I have fully participated in the care of the patient.: Yes I have reviewed all pertinent clinical information, including history, physical exam and plan: Yes Notes (Text): Seen and examined by me. I agree with the resident's documentation of the assessment and the plan. No new changes
--- NOTE | 2018-01-17 00:03 | CP.PCM.PN ---
<Juanita Yan - Last Filed: 01/17/18 00:00> Subjective - Date & Time of Evaluation Date of Evaluation: 01/17/18 Time of Evaluation: 00:00 - Subjective Subjective: Patient seen and examined at bedside. Patient resting comfortably in bed with no new complaints at this time. Patient continues to have mild right sided frontal headache. She denies fever, chills, chest pain, SOB, abdominal pain, N/V /D/C, and lower extremity pain/swelling. Objective - Vital Signs/Intake and Output Vital Signs (last 24 hours): Temp Pulse Resp BP Pulse Ox 97.4 F L 84 20 145/90 95 01/16/18 15:02 01/16/18 15:02 01/16/18 15:02 01/16/18 15:02 01/16/18 15:02 Intake and Output: 01/16/18 01/17/18 18:59 06:59 Intake Total 400 250 Output Total 200 475 Balance 200 -225 - Medications Medications: Current Medications Amlodipine Besylate (Norvasc) 10 mg PO DAILY [facility] Last Admin: 01/16/18 09:42 Dose: 10 mg Ascorbic Acid (Vitamin C 500 Mg Tab) 500 mg PO DAILY [facility] Last Admin: 01/16/18 09:42 Dose: 500 mg Aspirin (Aspirin Chewable) 81 mg NG DAILY [facility] Last Admin: 01/16/18 09:41 Dose: 81 mg Clopidogrel Bisulfate (Plavix) 75 mg NG DAILY [facility] Last Admin: 01/16/18 09:42 Dose: 75 mg Divalproex Sodium (Depakote Dr) 500 mg PO Q12 [facility] Last Admin: 01/16/18 22:19 Dose: 500 mg Famotidine (Pepcid) 20 mg PO BID [facility] Last Admin: 01/16/18 17:39 Dose: 20 mg Fluoxetine HCl (Prozac) 20 mg PO DAILY [facility] Stop: 02/07/18 18:14 Last Admin: 01/16/18 09:42 Dose: 20 mg Folic Acid (Folic Acid) 1 mg PO DAILY [facility] Last Admin: 01/16/18 09:42 Dose: 1 mg Lisinopril (Zestril) 5 mg PO DAILY [facility] Last Admin: 01/16/18 09:41 Dose: 5 mg Loratadine (Claritin) 10 mg PO DAILY PRN PRN Reason: Allergy symptoms Last Admin: 01/15/18 19:44 Dose: 10 mg Quetiapine Fumarate (Seroquel) 25 mg PO DAILY [facility] Last Admin: 01/16/18 10:50 Dose: 25 mg Rosuvastatin Calcium (Crestor) 40 mg PO HS [facility] Last Admin: 01/16/18 22:19 Dose: 40 mg Zinc Sulfate (Zinc Sulfate 220 Mg Cap) 220 mg PO DAILY [facility] Last Admin: 01/16/18 09:42 Dose: 220 mg - Labs Labs: 01/16/18 08:13 01/16/18 08:13 PT 12.2 SECONDS (9.7-12.2) 01/04/18 11:43 INR 1.1 01/04/18 11:43 APTT 26 SECONDS (21-34) 01/04/18 11:43 - Additional Findings Additional findings: - Constitutional Appears: Non-toxic, No Acute Distress - Head Exam Head Exam: ATRAUMATIC, NORMAL INSPECTION, NORMOCEPHALIC - Eye Exam Eye Exam: PERRL (sluggish response on the left). EOMI - ENT Exam ENT Exam: Mucous Membranes Moist - Respiratory Exam Respiratory Exam: Clear to Ausculation Bilateral, NORMAL BREATHING PATTERN - Cardiovascular Exam Cardiovascular Exam: RRR, +S1, +S2 - GI/Abdominal Exam GI & Abdominal Exam: Soft, Normal Bowel Sounds. absent: Distended, Tenderness - Extremities Exam Extremities Exam: absent: Calf Tenderness, Pedal Edema - Neurological Exam Neurological Exam: Alert, Awake. absent: CN II-XII Intact (left facial droop) Neuro motor strength exam: Left Upper Extremity: 0, Right Upper Extremity: 4, Left Lower Extremity: 0, Right Lower Extremity: 4 - Psychiatric Exam Psychiatric exam: Normal Affect, Normal Mood - Skin Skin Exam: Dry, Intact, Normal Color, Warm Assessment and Plan - Assessment and Plan (Free Text) Plan: Disposition: Patient needs acute rehab at discharge, however she has no insurance. Will continue to work with case management for discharge plans. Per PT, patient can not use a wheelchair because she cannot transfer from bed to chair without max assistance. Acute CVA affecting the right parietal/temporal area. * Dr. Castillo (neuro) consulted, help appreciated * Pureed/dysphagia diet * Head of bed elevation * PT/OT Imaging: * 01/[address]: Large hypodensity at the right brain suggestive of acute right MCA territory infarction. Suspicious for right dense MCA sign. If clinically warranted CTA of the head is suggested to evaluate for right MCA occlusion. * 01/04 CTA head and neck: Focal moderate stenosis approximately 75-80 percent noted at the origin of the right internal carotid artery with possible soft plaque. Mild approximately 55 percent stenosis noted at the origin of the left internal carotid artery. Diffuse atherosclerotic disease and calcification noted at the distal internal carotid arteries bilaterally with foci of mild stenosis noted at the supraclinoid portion of the left internal carotid artery. Diffuse approximately 50 percent stenosis of M1 segment of the right middle cerebral artery. Sharp cut off at the M1 bifurcation of the right middle cerebral artery noted. Occlusion of the anterior temporal M2 segment of the right middle cerebral artery at its origin. * 01/[address]: Acute infarct in the right frontal, parietal and temporal lobes. No acute hemorrhage. Midline shift to the left. Prior images have been requested for direct comparison. Comparison is made to prior report. * 01/04 Echo: Normal study with EF 65-70% * 01/[address]: Large right MCA and LAURI territory infarct changes which involve a large portion of the right cerebral hemisphere. The infarct exerts considerable mass effect with overlying sulcal effacement and compressive effects on the right lateral ventricle particularly the right temporal horn with mild [id number] midline shift. No evidence of acute intracranial hemorrhage. Mild underlying chronic white matter ischemic changes seen left cerebral hemisphere as well. No obstructive hydrocephalus. * 01/05 MRI Brain: Acute infarct changes involving a good portion of the right cerebral hemisphere (distal branches of the right middle cerebral artery and anterior cerebral nor arteries). Questionable early hemorrhagic conversion changes right basal ganglia evidenced by foci of dark T2 signal in these locations on gradient echo sequence with isointense T1 signal. Persistent mass effect with mild midline shift. HEMORRHAGE: Questionable early hemorrhagic conversion changes right basal ganglia evidenced by foci of dark T2 signal in these locations on gradient echo sequence with isointense T1 signal * 01/05 Lower extremity US: negative for DVT * 01/[address]: Stable large right renal infarcted involving the right anterior middle cerebral artery territories as discussed above with stable mass effect effacing the sulci of the right cerebral hemisphere in causing a limited leftward some fall seen shift of 3-4 mm once again. No interval intracranial hemorrhage or expansion of the infarcted territory appreciated. Limited age- related neuro degenerative change reiterated at the left cerebral hemisphere. * 01/[address]: Acute/ subacute right frontotemporoparietal infarct. This involves both the LAURI and MCA territory. No hemorrhage. 2-3 mm midline shift towards the left. No significant change from prior examination. Meds: * Norvasc 10 mg QD * Lisinopril 5 mg QD * ASA 81 mg QD * Plavix 75 mg QD * Valproate 500 mg IV Q12h - will change to PO if OK'd by neurology * Seroquel 25 mg QD * Fluoxetine 20 mg QD * Zinc 220 mg QD Headache * Per Neuro, was given 1 dose of decadron and mag sulfate today with plan to repeat Head CT Heavy alcohol use * No withdrawal symptoms up to this point * Counseled on cessation Hyperlipidemia * Cholesterol 210, Triglycerides 248, LDL 92, HDL 81 * Crestor 40 mg HS Prophylaxis * Pepcid 20 mg BID * SCDs * Claritin PRN allergy symptoms <Lacy Keenan - Last Filed: 01/18/18 20:10> Objective - Vital Signs/Intake and Output Vital Signs (last 24 hours): Temp Pulse Resp BP Pulse Ox 98.2 F 79 20 101/69 97 01/18/18 15:57 01/18/18 15:57 01/18/18 15:57 01/18/18 15:57 01/18/18 15:57 Intake and Output: 01/18/18 01/19/18 18:59 06:59 Intake Total 480 Output Total 250 Balance 230 - Medications Medications: Current Medications Amlodipine Besylate (Norvasc) 10 mg PO DAILY [facility] Last Admin: 01/18/18 09:20 Dose: 10 mg Ascorbic Acid (Vitamin C 500 Mg Tab) 500 mg PO DAILY [facility] Last Admin: 01/18/18 09:20 Dose: 500 mg Aspirin (Aspirin Chewable) 81 mg NG DAILY [facility] Last Admin: 01/18/18 09:20 Dose: 81 mg Clopidogrel Bisulfate (Plavix) 75 mg NG DAILY [facility] Last Admin: 01/18/18 09:20 Dose: 75 mg Divalproex Sodium (Depakote Dr) 500 mg PO Q12 [facility] Last Admin: 01/18/18 09:21 Dose: 500 mg Docusate Sodium (Colace) 100 mg PO BID [facility] Last Admin: 01/18/18 17:40 Dose: 100 mg Famotidine (Pepcid) 20 mg PO BID [facility] Last Admin: 01/18/18 17:40 Dose: 20 mg Fluoxetine HCl (Prozac) 20 mg PO DAILY [facility] Stop: 02/07/18 18:14 Last Admin: 01/18/18 09:21 Dose: 20 mg Folic Acid (Folic Acid) 1 mg PO DAILY [facility] Last Admin: 01/18/18 09:20 Dose: 1 mg Lisinopril (Zestril) 5 mg PO DAILY [facility] Last Admin: 01/18/18 09:20 Dose: 5 mg Loratadine (Claritin) 10 mg PO DAILY PRN PRN Reason: Allergy symptoms Last Admin: 01/18/18 17:40 Dose: 10 mg Quetiapine Fumarate (Seroquel) 25 mg PO DAILY [facility] Last Admin: 01/18/18 09:20 Dose: 25 mg Rosuvastatin Calcium (Crestor) 40 mg PO HS [facility] Last Admin: 01/17/18 21:21 Dose: 40 mg Tetrahydrozoline HCl/Zinc Sulfate (Visine 0.05% Opht Soln) 2 ml OD Q4H PRN PRN Reason: itchy eyes Zinc Sulfate (Zinc Sulfate 220 Mg Cap) 220 mg PO DAILY [facility] Last Admin: 01/18/18 09:21 Dose: 220 mg - Labs Labs: 01/18/18 08:04 01/18/18 08:04 PT 12.2 SECONDS (9.7-12.2) 01/04/18 11:43 INR 1.1 01/04/18 11:43 APTT 26 SECONDS (21-34) 01/04/18 11:43 Attending/Attestation - Attestation I have personally seen and examined this patient.: Yes I have fully participated in the care of the patient.: Yes I have reviewed all pertinent clinical information, including history, physical exam and plan: Yes Notes (Text): The patient was seen and examined by me,no changes noted patient has no complain. 1.CVA with left hemiparesis 2.Hyperlipidemia 3.HTN 4.Smoker Discuss with the resident. I agree with the documentation of the resident's assessment and the plan
[2018-01-17 07:39] LABS: BASO # 0.1 K/uL (0.0-0.2); BASO % 0.8 % (0.0-2.0); EOS % 0.5 % (0.0-4.0); HEMOGLOBIN 11.4 g/dL (11.0-16.0); LYMPH # 2.3 K/uL (1.0-4.3); MEAN CELL VOLUME 95.5 fL (81.0-99.0); MEAN CORPUSCULAR HEMOGLOBIN 32.8 pg (27.0-31.0); MEAN CORPUSCULAR HGB CONC 34.4 g/dL (33.0-37.0); MEAN PLATELET VOLUME 7.9 fL (7.2-11.7); MONO # 0.8 K/uL (0.0-0.8); MONO % 10.5 % (0.0-10.0); NEUT # 4.1 K/uL (1.8-7.0); NEUT % 57.2 % (50.0-75.0); NRBC % 0.1 % (0.0-2.0); RBC 3.48 Mil/uL (3.80-5.20); RED CELL DISTRIBUTION WIDTH 14.7 % (11.5-14.5); WHITE BLOOD COUNT 7.3 K/uL (4.8-10.8)
[2018-01-17 08:17] LABS: ALBUMIN 3.7 g/dL (3.5-5.0); ALT/SGPT 46 U/L (9-52); AST/SGOT 52 U/L (14-36); BLOOD UREA NITROGEN 13 mg/dL (7-17); CALCIUM 9.8 mg/dl (8.6-10.4); GFR AFRICAN-AMERICAN > 60; GFR NON-AFRICAN AMERICAN > 60
[2018-01-17] MEDS: Divalproex 500 mg DR Tab PO SCH ×2 (11:14→21:21)
--- NOTE | 2018-01-18 02:34 | CP.PCM.PN ---
<Juanita Yan - Last Filed: 01/18/18 02:32> Subjective - Date & Time of Evaluation Date of Evaluation: 01/18/18 Time of Evaluation: 02:32 - Subjective Subjective: Patient seen and examined at bedside. Patient resting comfortably in bed. Patient is complaining of abdominal pain and asking for toradol which she says helped her yesterday. She denies fever, chills, chest pain, SOB, N/V/D/C, and lower extremity pain/swelling. Objective - Vital Signs/Intake and Output Vital Signs (last 24 hours): Temp Pulse Resp BP Pulse Ox 98.9 F 75 20 120/81 98 01/17/18 23:40 01/17/18 23:40 01/17/18 23:40 01/17/18 23:40 01/17/18 23:40 Intake and Output: 01/17/18 01/18/18 18:59 06:59 Intake Total 450 Output Total 600 Balance -150 - Medications Medications: Current Medications Amlodipine Besylate (Norvasc) 10 mg PO DAILY [facility] Last Admin: 01/17/18 11:14 Dose: 10 mg Ascorbic Acid (Vitamin C 500 Mg Tab) 500 mg PO DAILY [facility] Last Admin: 01/17/18 11:15 Dose: 500 mg Aspirin (Aspirin Chewable) 81 mg NG DAILY [facility] Last Admin: 01/17/18 11:14 Dose: 81 mg Clopidogrel Bisulfate (Plavix) 75 mg NG DAILY [facility] Last Admin: 01/17/18 11:14 Dose: 75 mg Divalproex Sodium (Depakote Dr) 500 mg PO Q12 [facility] Last Admin: 01/17/18 21:21 Dose: 500 mg Famotidine (Pepcid) 20 mg PO BID [facility] Last Admin: 01/17/18 18:14 Dose: 20 mg Fluoxetine HCl (Prozac) 20 mg PO DAILY [facility] Stop: 02/07/18 18:14 Last Admin: 01/17/18 11:15 Dose: 20 mg Folic Acid (Folic Acid) 1 mg PO DAILY [facility] Last Admin: 01/17/18 11:14 Dose: 1 mg Lisinopril (Zestril) 5 mg PO DAILY [facility] Last Admin: 01/17/18 11:14 Dose: 5 mg Loratadine (Claritin) 10 mg PO DAILY PRN PRN Reason: Allergy symptoms Last Admin: 01/15/18 19:44 Dose: 10 mg Quetiapine Fumarate (Seroquel) 25 mg PO DAILY [facility] Last Admin: 01/17/18 11:13 Dose: 25 mg Rosuvastatin Calcium (Crestor) 40 mg PO HS [facility] Last Admin: 01/17/18 21:21 Dose: 40 mg Zinc Sulfate (Zinc Sulfate 220 Mg Cap) 220 mg PO DAILY [facility] Last Admin: 01/17/18 11:14 Dose: 220 mg - Labs Labs: 01/17/18 07:27 01/17/18 07:27 PT 12.2 SECONDS (9.7-12.2) 01/04/18 11:43 INR 1.1 01/04/18 11:43 APTT 26 SECONDS (21-34) 01/04/18 11:43 - Additional Findings Additional findings: - Constitutional Appears: Non-toxic, No Acute Distress - Head Exam Head Exam: ATRAUMATIC, NORMAL INSPECTION, NORMOCEPHALIC - Eye Exam Eye Exam: PERRL (sluggish response on the left). EOMI - ENT Exam ENT Exam: Mucous Membranes Moist - Respiratory Exam Respiratory Exam: Clear to Ausculation Bilateral, NORMAL BREATHING PATTERN - Cardiovascular Exam Cardiovascular Exam: RRR, +S1, +S2 - GI/Abdominal Exam GI & Abdominal Exam: Soft, Normal Bowel Sounds. absent: Distended, Tenderness - Extremities Exam Extremities Exam: absent: Calf Tenderness, Pedal Edema - Neurological Exam Neurological Exam: Alert, Awake. absent: CN II-XII Intact (left facial droop) Neuro motor strength exam: Left Upper Extremity: 0, Right Upper Extremity: 4, Left Lower Extremity: 0, Right Lower Extremity: 4 - Psychiatric Exam Psychiatric exam: Normal Affect, Normal Mood - Skin Skin Exam: Dry, Intact, Normal Color, Warm Assessment and Plan - Assessment and Plan (Free Text) Plan: Disposition: Patient needs acute rehab at discharge, however she has no insurance. Will continue to work with case management for discharge plans. Per PT, patient can not use a wheelchair because she cannot transfer from bed to chair without max assistance. Acute CVA affecting the right parietal/temporal area. * Dr. Castillo (neuro) consulted, help appreciated * Pureed/dysphagia diet * Head of bed elevation * PT/OT Imaging: * 01/[address]: Large hypodensity at the right brain suggestive of acute right MCA territory infarction. Suspicious for right dense MCA sign. If clinically warranted CTA of the head is suggested to evaluate for right MCA occlusion. * 01/04 CTA head and neck: Focal moderate stenosis approximately 75-80 percent noted at the origin of the right internal carotid artery with possible soft plaque. Mild approximately 55 percent stenosis noted at the origin of the left internal carotid artery. Diffuse atherosclerotic disease and calcification noted at the distal internal carotid arteries bilaterally with foci of mild stenosis noted at the supraclinoid portion of the left internal carotid artery. Diffuse approximately 50 percent stenosis of M1 segment of the right middle cerebral artery. Sharp cut off at the M1 bifurcation of the right middle cerebral artery noted. Occlusion of the anterior temporal M2 segment of the right middle cerebral artery at its origin. * 01/[address]: Acute infarct in the right frontal, parietal and temporal lobes. No acute hemorrhage. Midline shift to the left. Prior images have been requested for direct comparison. Comparison is made to prior report. * 01/04 Echo: Normal study with EF 65-70% * 01/[address]: Large right MCA and LAURI territory infarct changes which involve a large portion of the right cerebral hemisphere. The infarct exerts considerable mass effect with overlying sulcal effacement and compressive effects on the right lateral ventricle particularly the right temporal horn with mild [id number] midline shift. No evidence of acute intracranial hemorrhage. Mild underlying chronic white matter ischemic changes seen left cerebral hemisphere as well. No obstructive hydrocephalus. * 01/05 MRI Brain: Acute infarct changes involving a good portion of the right cerebral hemisphere (distal branches of the right middle cerebral artery and anterior cerebral nor arteries). Questionable early hemorrhagic conversion changes right basal ganglia evidenced by foci of dark T2 signal in these locations on gradient echo sequence with isointense T1 signal. Persistent mass effect with mild midline shift. HEMORRHAGE: Questionable early hemorrhagic conversion changes right basal ganglia evidenced by foci of dark T2 signal in these locations on gradient echo sequence with isointense T1 signal * 01/05 Lower extremity US: negative for DVT * 01/[address]: Stable large right renal infarcted involving the right anterior middle cerebral artery territories as discussed above with stable mass effect effacing the sulci of the right cerebral hemisphere in causing a limited leftward some fall seen shift of 3-4 mm once again. No interval intracranial hemorrhage or expansion of the infarcted territory appreciated. Limited age- related neuro degenerative change reiterated at the left cerebral hemisphere. * 01/[address]: Acute/ subacute right frontotemporoparietal infarct. This involves both the LAURI and MCA territory. No hemorrhage. 2-3 mm midline shift towards the left. No significant change from prior examination. Meds: * Norvasc 10 mg QD * Lisinopril 5 mg QD * ASA 81 mg QD * Plavix 75 mg QD * Valproate 500 mg IV Q12h - will change to PO if OK'd by neurology * Seroquel 25 mg QD * Fluoxetine 20 mg QD * Zinc 220 mg QD Headache * Per Neuro, was given 1 dose of decadron and mag sulfate today with plan to repeat Head CT Heavy alcohol use * No withdrawal symptoms up to this point * Counseled on cessation Hyperlipidemia * Cholesterol 210, Triglycerides 248, LDL 92, HDL 81 * Crestor 40 mg HS Prophylaxis * Pepcid 20 mg BID * SCDs * Claritin PRN allergy symptoms <Lacy Keenan - Last Filed: 01/18/18 20:11> Objective - Vital Signs/Intake and Output Vital Signs (last 24 hours): Temp Pulse Resp BP Pulse Ox 98.2 F 79 20 101/69 97 01/18/18 15:57 01/18/18 15:57 01/18/18 15:57 01/18/18 15:57 01/18/18 15:57 Intake and Output: 01/18/18 01/19/18 18:59 06:59 Intake Total 480 Output Total 250 Balance 230 - Medications Medications: Current Medications Amlodipine Besylate (Norvasc) 10 mg PO DAILY [facility] Last Admin: 01/18/18 09:20 Dose: 10 mg Ascorbic Acid (Vitamin C 500 Mg Tab) 500 mg PO DAILY [facility] Last Admin: 01/18/18 09:20 Dose: 500 mg Aspirin (Aspirin Chewable) 81 mg NG DAILY [facility] Last Admin: 01/18/18 09:20 Dose: 81 mg Clopidogrel Bisulfate (Plavix) 75 mg NG DAILY [facility] Last Admin: 01/18/18 09:20 Dose: 75 mg Divalproex Sodium (Depakote Dr) 500 mg PO Q12 [facility] Last Admin: 01/18/18 09:21 Dose: 500 mg Docusate Sodium (Colace) 100 mg PO BID [facility] Last Admin: 01/18/18 17:40 Dose: 100 mg Famotidine (Pepcid) 20 mg PO BID [facility] Last Admin: 01/18/18 17:40 Dose: 20 mg Fluoxetine HCl (Prozac) 20 mg PO DAILY [facility] Stop: 02/07/18 18:14 Last Admin: 01/18/18 09:21 Dose: 20 mg Folic Acid (Folic Acid) 1 mg PO DAILY [facility] Last Admin: 01/18/18 09:20 Dose: 1 mg Lisinopril (Zestril) 5 mg PO DAILY [facility] Last Admin: 01/18/18 09:20 Dose: 5 mg Loratadine (Claritin) 10 mg PO DAILY PRN PRN Reason: Allergy symptoms Last Admin: 01/18/18 17:40 Dose: 10 mg Quetiapine Fumarate (Seroquel) 25 mg PO DAILY [facility] Last Admin: 01/18/18 09:20 Dose: 25 mg Rosuvastatin Calcium (Crestor) 40 mg PO HS [facility] Last Admin: 01/17/18 21:21 Dose: 40 mg Tetrahydrozoline HCl/Zinc Sulfate (Visine 0.05% Opht Soln) 2 ml OD Q4H PRN PRN Reason: itchy eyes Zinc Sulfate (Zinc Sulfate 220 Mg Cap) 220 mg PO DAILY [facility] Last Admin: 01/18/18 09:21 Dose: 220 mg - Labs Labs: 01/18/18 08:04 01/18/18 08:04 PT 12.2 SECONDS (9.7-12.2) 01/04/18 11:43 INR 1.1 01/04/18 11:43 APTT 26 SECONDS (21-34) 01/04/18 11:43 Attending/Attestation - Attestation I have personally seen and examined this patient.: Yes I have fully participated in the care of the patient.: Yes I have reviewed all pertinent clinical information, including history, physical exam and plan: Yes Notes (Text): The patient was seen and examined by me,no changes noted patient has no complain. 1.CVA with left hemiparesis 2.Hyperlipidemia 3.HTN 4.Smoker Discuss with the resident. I agree with the documentation of the resident's assessment and the plan
[2018-01-18 08:19] LABS: BASO # 0.1 K/uL (0.0-0.2); BASO % 0.9 % (0.0-2.0); EOS # 0.1 K/uL (0.0-0.7); EOS % 1.1 % (0.0-4.0); LYMPH # 1.7 K/uL (1.0-4.3); LYMPH % 23.4 % (20.0-40.0); MEAN CELL VOLUME 95.8 fL (81.0-99.0); MEAN CORPUSCULAR HEMOGLOBIN 32.8 pg (27.0-31.0); MEAN CORPUSCULAR HGB CONC 34.2 g/dL (33.0-37.0); MEAN PLATELET VOLUME 7.9 fL (7.2-11.7); MONO % 13.9 % (0.0-10.0); NEUT # 4.4 K/uL (1.8-7.0); NEUT % 60.7 % (50.0-75.0); RBC 3.35 Mil/uL (3.80-5.20); RED CELL DISTRIBUTION WIDTH 14.2 % (11.5-14.5); WHITE BLOOD COUNT 7.3 K/uL (4.8-10.8)
[2018-01-18 08:45] LABS: ALB/GLOB RATIO 0.9 (1.0-2.1); ALBUMIN 3.3 g/dL (3.5-5.0); ALT/SGPT 32 U/L (9-52); AST/SGOT 43 U/L (14-36); BLOOD UREA NITROGEN 11 mg/dL (7-17); CALCIUM 9.6 mg/dl (8.6-10.4); GFR AFRICAN-AMERICAN > 60; GFR NON-AFRICAN AMERICAN > 60
[2018-01-18] MEDS: Divalproex 500 mg DR Tab PO SCH ×2 (09:21→21:46)
--- NOTE | 2018-01-18 11:04 | CP.PCM.PN ---
Subjective - Date & Time of Evaluation Date of Evaluation: 01/18/18 Time of Evaluation: 11:03 - Subjective Subjective: Ms. Bui is seen and examined at the bedside. She remains alert, oriented in all spheres. She denies any blurred vision, dizziness, lightheadedness, nausea, or vomiting. She further claims due to being awake most of the night.She is able to follow simple commands with left facial droop, left side hemiplegia, and left side neglect.She is requesting to step up her diet, explained to the patient the importance of re-evaluation of swallowing in order to do that, verbalizes understanding. She has bilateral SCD on her lower extremities.She remains on telesitter for patient safety. There was no untoward events overnight. Objective - Vital Signs/Intake and Output Vital Signs (last 24 hours): Temp Pulse Resp BP Pulse Ox 97.8 F 62 18 120/81 98 01/18/18 09:24 01/18/18 09:24 01/18/18 09:24 01/18/18 09:24 01/18/18 09:24 Intake and Output: 01/18/18 01/18/18 06:59 18:59 Intake Total 450 Output Total 950 Balance -500 - Medications Medications: Current Medications Amlodipine Besylate (Norvasc) 10 mg PO DAILY [facility] Last Admin: 01/18/18 09:20 Dose: 10 mg Ascorbic Acid (Vitamin C 500 Mg Tab) 500 mg PO DAILY [facility] Last Admin: 01/18/18 09:20 Dose: 500 mg Aspirin (Aspirin Chewable) 81 mg NG DAILY [facility] Last Admin: 01/18/18 09:20 Dose: 81 mg Clopidogrel Bisulfate (Plavix) 75 mg NG DAILY [facility] Last Admin: 01/18/18 09:20 Dose: 75 mg Divalproex Sodium (Depakote Dr) 500 mg PO Q12 [facility] Last Admin: 01/18/18 09:21 Dose: 500 mg Famotidine (Pepcid) 20 mg PO BID [facility] Last Admin: 01/18/18 09:20 Dose: 20 mg Fluoxetine HCl (Prozac) 20 mg PO DAILY [facility] Stop: 02/07/18 18:14 Last Admin: 01/18/18 09:21 Dose: 20 mg Folic Acid (Folic Acid) 1 mg PO DAILY [facility] Last Admin: 01/18/18 09:20 Dose: 1 mg Lisinopril (Zestril) 5 mg PO DAILY [facility] Last Admin: 01/18/18 09:20 Dose: 5 mg Loratadine (Claritin) 10 mg PO DAILY PRN PRN Reason: Allergy symptoms Last Admin: 01/15/18 19:44 Dose: 10 mg Quetiapine Fumarate (Seroquel) 25 mg PO DAILY [facility] Last Admin: 01/18/18 09:20 Dose: 25 mg Rosuvastatin Calcium (Crestor) 40 mg PO HS [facility] Last Admin: 01/17/18 21:21 Dose: 40 mg Zinc Sulfate (Zinc Sulfate 220 Mg Cap) 220 mg PO DAILY [facility] Last Admin: 01/18/18 09:21 Dose: 220 mg - Labs Labs: 01/18/18 08:04 01/18/18 08:04 PT 12.2 SECONDS (9.7-12.2) 01/04/18 11:43 INR 1.1 01/04/18 11:43 APTT 26 SECONDS (21-34) 01/04/18 11:43 - Constitutional Appears: No Acute Distress - Head Exam Head Exam: NORMAL INSPECTION - Neurological Exam Neurological Exam: Alert, Awake, Oriented x3 Neuro motor strength exam: Left Upper Extremity: 0, Right Upper Extremity: 4, Left Lower Extremity: 0, Right Lower Extremity: 4 Additional comments: Neurological unchanged from previous examination. Assessment and Plan (1) CVA (cerebral vascular accident) Assessment & Plan: Case discussed with Dr. Castillo, continue all current medical, physical, occupational, and speech therapies. Recommend blood pressure control and keep head of bed elevated at least 30 degrees. Status: Acute
[2018-01-18] MEDS ORDERED: oxyCODONE 5 mg Immediate Release Tab PO ONE (20:22)
[2018-01-19] MEDS: Tetrahydrozoline Opht 0.05% Sol (15 ml) OD PRN ×2 (06:14→23:47)
[2018-01-19 07:38] LABS: BASO % 0.7 % (0.0-2.0); EOS # 0.1 K/uL (0.0-0.7); HEMOGLOBIN 11.2 g/dL (11.0-16.0); LYMPH # 1.9 K/uL (1.0-4.3); LYMPH % 26.7 % (20.0-40.0); MEAN CELL VOLUME 95.7 fL (81.0-99.0); MEAN CORPUSCULAR HEMOGLOBIN 32.6 pg (27.0-31.0); MEAN CORPUSCULAR HGB CONC 34.1 g/dL (33.0-37.0); MEAN PLATELET VOLUME 7.8 fL (7.2-11.7); MONO # 0.9 K/uL (0.0-0.8); MONO % 12.4 % (0.0-10.0); NEUT # 4.1 K/uL (1.8-7.0); NEUT % 58.2 % (50.0-75.0); NRBC % 0.1 % (0.0-2.0); RBC 3.44 Mil/uL (3.80-5.20); RED CELL DISTRIBUTION WIDTH 14.5 % (11.5-14.5)
[2018-01-19 07:45] LABS: ALB/GLOB RATIO 0.9 (1.0-2.1); ALBUMIN 3.5 g/dL (3.5-5.0); ALT/SGPT 37 U/L (9-52); AST/SGOT 82 U/L (14-36); BLOOD UREA NITROGEN 10 mg/dL (7-17); CALCIUM 9.4 mg/dl (8.6-10.4); GFR AFRICAN-AMERICAN > 60; GFR NON-AFRICAN AMERICAN > 60
--- NOTE | 2018-01-19 08:06 | CP.PCM.PN ---
Subjective - Date & Time of Evaluation Date of Evaluation: 01/19/18 Time of Evaluation: 08:06 - Subjective Subjective: Ms. Bui is seen and examined at the bedside. She remains alert. She denies any dizziness, nausea, or vomiting, but claims of dull mild frontal headache non -raditing. She further states of her desire to be able to walk with at least walker. She also verbalize of left arm pain last night which she was given pain medications with relief.She is able to follow simple commands with left facial droop, left side hemiplegia, and left side neglect.She is requesting to step up her diet, explained to the patient the importance of re-evaluation of swallowing in order to do that, verbalizes understanding. She has bilateral SCD on her lower extremities.She remains on telesitter for patient safety. Her AST level is slowing increasing with the latest level of 82 from 42.There was no untoward events overnight. Objective - Vital Signs/Intake and Output Vital Signs (last 24 hours): Temp Pulse Resp BP Pulse Ox 98.0 F 70 20 131/85 97 01/19/18 07:15 01/19/18 07:15 01/19/18 07:15 01/19/18 07:15 01/19/18 07:15 Intake and Output: 01/19/18 01/19/18 06:59 18:59 Output Total 1700 Balance -1700 - Medications Medications: Current Medications Amlodipine Besylate (Norvasc) 10 mg PO DAILY [facility] Last Admin: 01/18/18 09:20 Dose: 10 mg Ascorbic Acid (Vitamin C 500 Mg Tab) 500 mg PO DAILY [facility] Last Admin: 01/18/18 09:20 Dose: 500 mg Aspirin (Aspirin Chewable) 81 mg NG DAILY [facility] Last Admin: 01/18/18 09:20 Dose: 81 mg Clopidogrel Bisulfate (Plavix) 75 mg NG DAILY [facility] Last Admin: 01/18/18 09:20 Dose: 75 mg Docusate Sodium (Colace) 100 mg PO BID [facility] Last Admin: 01/18/18 17:40 Dose: 100 mg Famotidine (Pepcid) 20 mg PO BID [facility] Last Admin: 01/18/18 17:40 Dose: 20 mg Fluoxetine HCl (Prozac) 20 mg PO DAILY [facility] Stop: 02/07/18 18:14 Last Admin: 01/18/18 09:21 Dose: 20 mg Folic Acid (Folic Acid) 1 mg PO DAILY [facility] Last Admin: 01/18/18 09:20 Dose: 1 mg Lisinopril (Zestril) 5 mg PO DAILY [facility] Last Admin: 01/18/18 09:20 Dose: 5 mg Loratadine (Claritin) 10 mg PO DAILY PRN PRN Reason: Allergy symptoms Last Admin: 01/18/18 17:40 Dose: 10 mg Magnesium Oxide (Mag-Ox) 400 mg PO BID [facility] Quetiapine Fumarate (Seroquel) 25 mg PO DAILY [facility] Last Admin: 01/18/18 09:20 Dose: 25 mg Rosuvastatin Calcium (Crestor) 40 mg PO HS [facility] Last Admin: 01/18/18 21:46 Dose: 40 mg Tetrahydrozoline HCl/Zinc Sulfate (Visine 0.05% Opht Soln) 2 ml OD Q4H PRN PRN Reason: itchy eyes Last Admin: 01/19/18 06:14 Dose: 1 drop Zinc Sulfate (Zinc Sulfate 220 Mg Cap) 220 mg PO DAILY [facility] Last Admin: 01/18/18 09:21 Dose: 220 mg - Labs Labs: 01/19/18 07:12 01/19/18 07:12 PT 12.2 SECONDS (9.7-12.2) 01/04/18 11:43 INR 1.1 01/04/18 11:43 APTT 26 SECONDS (21-34) 01/04/18 11:43 - Constitutional Appears: No Acute Distress - Head Exam Head Exam: NORMAL INSPECTION - Neurological Exam Neurological Exam: Alert, Awake, Oriented x3 Neuro motor strength exam: Left Upper Extremity: 0, Right Upper Extremity: 5, Left Lower Extremity: 0, Right Lower Extremity: 5 Additional comments: Neurological unchanged from previous examination. Assessment and Plan (1) CVA (cerebral vascular accident) Assessment & Plan: Case discussed with Dr. Jacob, continue all current medical, physical, occupational, and speech therapies. Recommend to discontinue depakote due to elevated AST level and magnesium oxide 400 mg PO BID for headache. Will monitor for any s/s seizures. Status: Acute
[2018-01-19] MEDS: Magnesium Oxide 400 mg Tab UD PO SCH ×2 (10:58→17:52)
--- NOTE | 2018-01-19 15:40 | CP.PCM.PN ---
Subjective - Date & Time of Evaluation Date of Evaluation: 01/19/18 Time of Evaluation: 15:36 - Subjective Subjective: Patient seen and examined at bedside. Patient resting comfortably in bed. Patient complaining of mild epigastric pain and nausea. Patient is still tolerating her diet and denies vomiting and diarrhea. Patient says she had a BM this morning but states that it was not very much. Patient still with paralysis of LUE nad LLE. She denies fever, chills, chest pain, SOB, and pain/swelling in the lower extremities. Objective - Vital Signs/Intake and Output Vital Signs (last 24 hours): Temp Pulse Resp BP Pulse Ox 97.9 F 84 18 108/72 98 01/19/18 11:40 01/19/18 11:40 01/19/18 11:40 01/19/18 11:40 01/19/18 11:40 Intake and Output: 01/19/18 01/19/18 06:59 18:59 Intake Total 600 Output Total 1700 300 Balance -1700 300 - Medications Medications: Current Medications Amlodipine Besylate (Norvasc) 10 mg PO DAILY [facility] Last Admin: 01/19/18 10:57 Dose: 10 mg Ascorbic Acid (Vitamin C 500 Mg Tab) 500 mg PO DAILY [facility] Last Admin: 01/19/18 10:58 Dose: 500 mg Aspirin (Aspirin Chewable) 81 mg NG DAILY [facility] Last Admin: 01/19/18 10:58 Dose: 81 mg Clopidogrel Bisulfate (Plavix) 75 mg NG DAILY [facility] Last Admin: 01/19/18 10:58 Dose: 75 mg Docusate Sodium (Colace) 100 mg PO BID [facility] Last Admin: 01/19/18 10:57 Dose: 100 mg Famotidine (Pepcid) 20 mg PO BID [facility] Last Admin: 01/19/18 10:57 Dose: 20 mg Fluoxetine HCl (Prozac) 20 mg PO DAILY [facility] Stop: 02/07/18 18:14 Last Admin: 01/19/18 10:58 Dose: 20 mg Folic Acid (Folic Acid) 1 mg PO DAILY [facility] Last Admin: 01/19/18 10:58 Dose: 1 mg Lisinopril (Zestril) 5 mg PO DAILY [facility] Last Admin: 01/19/18 10:57 Dose: 5 mg Loratadine (Claritin) 10 mg PO DAILY PRN PRN Reason: Allergy symptoms Last Admin: 01/18/18 17:40 Dose: 10 mg Magnesium Oxide (Mag-Ox) 400 mg PO BID [facility] Last Admin: 01/19/18 10:58 Dose: 400 mg Ondansetron HCl (Zofran Inj) 4 mg IVP DAILY@ONCE PRN PRN Reason: Nausea/Vomiting Quetiapine Fumarate (Seroquel) 25 mg PO DAILY [facility] Last Admin: 01/19/18 10:58 Dose: 25 mg Rosuvastatin Calcium (Crestor) 40 mg PO HS [facility] Last Admin: 01/18/18 21:46 Dose: 40 mg Tetrahydrozoline HCl/Zinc Sulfate (Visine 0.05% Opht Soln) 2 ml OD Q4H PRN PRN Reason: itchy eyes Last Admin: 01/19/18 06:14 Dose: 1 drop Zinc Sulfate (Zinc Sulfate 220 Mg Cap) 220 mg PO DAILY [facility] Last Admin: 01/19/18 10:59 Dose: 220 mg - Labs Labs: 01/19/18 07:12 01/19/18 07:12 PT 12.2 SECONDS (9.7-12.2) 01/04/18 11:43 INR 1.1 01/04/18 11:43 APTT 26 SECONDS (21-34) 01/04/18 11:43 - Additional Findings Additional findings: - Constitutional Appears: Non-toxic, No Acute Distress - Head Exam Head Exam: ATRAUMATIC, NORMAL INSPECTION, NORMOCEPHALIC - Eye Exam Eye Exam: PERRL (sluggish response on the left). EOMI - ENT Exam ENT Exam: Mucous Membranes Moist - Respiratory Exam Respiratory Exam: Clear to Ausculation Bilateral, NORMAL BREATHING PATTERN - Cardiovascular Exam Cardiovascular Exam: RRR, +S1, +S2 - GI/Abdominal Exam GI & Abdominal Exam: Tender (mild epigastric) Soft, Normal Bowel Sounds. absent : Distended - Extremities Exam Extremities Exam: absent: Calf Tenderness, Pedal Edema - Neurological Exam Neurological Exam: Alert, Awake. absent: CN II-XII Intact (left facial droop) Neuro motor strength exam: Left Upper Extremity: 0, Right Upper Extremity: 4, Left Lower Extremity: 0, Right Lower Extremity: 4 - Psychiatric Exam Psychiatric exam: Normal Affect, Normal Mood - Skin Skin Exam: Dry, Intact, Normal Color, Warm Assessment and Plan - Assessment and Plan (Free Text) Plan: Disposition: Patient needs acute rehab at discharge, however she has no insurance. Will continue to work with case management for discharge plans. Per PT, patient can not use a wheelchair because she cannot transfer from bed to chair without max assistance. Acute CVA affecting the right parietal/temporal area. * Dr. Castillo (neuro) consulted, help appreciated * Pureed/dysphagia diet * Head of bed elevation * PT/OT Imaging: * 01/[address]: Large hypodensity at the right brain suggestive of acute right MCA territory infarction. Suspicious for right dense MCA sign. If clinically warranted CTA of the head is suggested to evaluate for right MCA occlusion. * 01/04 CTA head and neck: Focal moderate stenosis approximately 75-80 percent noted at the origin of the right internal carotid artery with possible soft plaque. Mild approximately 55 percent stenosis noted at the origin of the left internal carotid artery. Diffuse atherosclerotic disease and calcification noted at the distal internal carotid arteries bilaterally with foci of mild stenosis noted at the supraclinoid portion of the left internal carotid artery. Diffuse approximately 50 percent stenosis of M1 segment of the right middle cerebral artery. Sharp cut off at the M1 bifurcation of the right middle cerebral artery noted. Occlusion of the anterior temporal M2 segment of the right middle cerebral artery at its origin. * 01/[address]: Acute infarct in the right frontal, parietal and temporal lobes. No acute hemorrhage. Midline shift to the left. Prior images have been requested for direct comparison. Comparison is made to prior report. * 01/04 Echo: Normal study with EF 65-70% * 01/[address]: Large right MCA and LAURI territory infarct changes which involve a large portion of the right cerebral hemisphere. The infarct exerts considerable mass effect with overlying sulcal effacement and compressive effects on the right lateral ventricle particularly the right temporal horn with mild [id number] midline shift. No evidence of acute intracranial hemorrhage. Mild underlying chronic white matter ischemic changes seen left cerebral hemisphere as well. No obstructive hydrocephalus. * 01/05 MRI Brain: Acute infarct changes involving a good portion of the right cerebral hemisphere (distal branches of the right middle cerebral artery and anterior cerebral nor arteries). Questionable early hemorrhagic conversion changes right basal ganglia evidenced by foci of dark T2 signal in these locations on gradient echo sequence with isointense T1 signal. Persistent mass effect with mild midline shift. HEMORRHAGE: Questionable early hemorrhagic conversion changes right basal ganglia evidenced by foci of dark T2 signal in these locations on gradient echo sequence with isointense T1 signal * 01/05 Lower extremity US: negative for DVT * 01/[address]: Stable large right renal infarcted involving the right anterior middle cerebral artery territories as discussed above with stable mass effect effacing the sulci of the right cerebral hemisphere in causing a limited leftward some fall seen shift of 3-4 mm once again. No interval intracranial hemorrhage or expansion of the infarcted territory appreciated. Limited age- related neuro degenerative change reiterated at the left cerebral hemisphere. * 01/[address]: Acute/ subacute right frontotemporoparietal infarct. This involves both the LAURI and MCA territory. No hemorrhage. 2-3 mm midline shift towards the left. No significant change from prior examination. * 01/[address]: Expected changes status post right frontotemporoparietal infarct now with cortical laminar necrosis. No hemorrhage. Minimal midline shift. Meds: * Norvasc 10 mg QD * Lisinopril 5 mg QD * ASA 81 mg QD * Plavix 75 mg QD * discontinued Valproate 500 mg IV Q12h due to elevated liver enzymes * Seroquel 25 mg QD * Fluoxetine 20 mg QD * Zinc 220 mg QD Heavy alcohol use * Counseled on cessation Hyperlipidemia * Cholesterol 210, Triglycerides 248, LDL 92, HDL 81 * Crestor 40 mg HS Prophylaxis * Pepcid 20 mg BID * SCDs * Claritin PRN allergy symptoms
[2018-01-19] MEDS ORDERED: Aluminum Hydroxide/Magnesium Hydroxide Susp (30 mL) PO ONE (19:30)
[2018-01-20] MEDS ORDERED: Sucralfate 1 gm/10 ml Oral Susp UD PO STA (01:21)
[2018-01-20] MEDS: Magnesium Oxide 400 mg Tab UD PO SCH ×2 (09:02→17:22)
--- NOTE | 2018-01-20 17:08 | CP.PCM.PN ---
Subjective - Date & Time of Evaluation Date of Evaluation: 01/20/18 Time of Evaluation: 17:02 - Subjective Subjective: Patient seen and examined at bedside. Patient resting comfortably in bed. Patient was having some lightheadedness this morning but it was gone when I saw her. Patient no longer has abdominal pain or nausea. Patient still with paralysis of LUE and LLE. She denies fever, chills, chest pain, SOB, and pain/ swelling in the lower extremities. Objective - Vital Signs/Intake and Output Vital Signs (last 24 hours): Temp Pulse Resp BP Pulse Ox 97.9 F 83 18 141/72 98 01/20/18 15:40 01/20/18 15:40 01/20/18 15:40 01/20/18 15:40 01/20/18 15:40 Intake and Output: 01/20/18 01/20/18 06:59 18:59 Intake Total 500 400 Output Total 1250 730 Balance -750 -330 - Medications Medications: Current Medications Amlodipine Besylate (Norvasc) 10 mg PO DAILY [facility] Last Admin: 01/20/18 09:01 Dose: 10 mg Ascorbic Acid (Vitamin C 500 Mg Tab) 500 mg PO DAILY [facility] Last Admin: 01/20/18 09:18 Dose: 500 mg Aspirin (Aspirin Chewable) 81 mg NG DAILY [facility] Last Admin: 01/20/18 09:02 Dose: 81 mg Clopidogrel Bisulfate (Plavix) 75 mg NG DAILY [facility] Last Admin: 01/20/18 09:02 Dose: 75 mg Docusate Sodium (Colace) 100 mg PO BID [facility] Last Admin: 01/20/18 09:02 Dose: 100 mg Famotidine (Pepcid) 20 mg PO BID [facility] Last Admin: 01/20/18 09:02 Dose: 20 mg Fluoxetine HCl (Prozac) 20 mg PO DAILY [facility] Stop: 02/07/18 18:14 Last Admin: 01/20/18 09:02 Dose: 20 mg Folic Acid (Folic Acid) 1 mg PO DAILY [facility] Last Admin: 01/20/18 09:02 Dose: 1 mg Lisinopril (Zestril) 5 mg PO DAILY [facility] Last Admin: 01/20/18 09:02 Dose: 5 mg Loratadine (Claritin) 10 mg PO DAILY PRN PRN Reason: Allergy symptoms Last Admin: 01/20/18 09:02 Dose: 10 mg Magnesium Oxide (Mag-Ox) 400 mg PO BID [facility] Last Admin: 01/20/18 09:02 Dose: 400 mg Ondansetron HCl (Zofran Inj) 4 mg IVP DAILY@ONCE PRN PRN Reason: Nausea/Vomiting Last Admin: 01/20/18 05:08 Dose: 4 mg Quetiapine Fumarate (Seroquel) 25 mg PO DAILY [facility] Last Admin: 01/20/18 09:03 Dose: 25 mg Rosuvastatin Calcium (Crestor) 40 mg PO HS [facility] Last Admin: 01/19/18 21:31 Dose: 40 mg Tetrahydrozoline HCl/Zinc Sulfate (Visine 0.05% Opht Soln) 2 ml OD Q4H PRN PRN Reason: itchy eyes Last Admin: 01/19/18 23:47 Dose: 1 drop Zinc Sulfate (Zinc Sulfate 220 Mg Cap) 220 mg PO DAILY [facility] Last Admin: 01/20/18 09:03 Dose: 220 mg - Labs Labs: 01/19/18 07:12 01/19/18 07:12 PT 12.2 SECONDS (9.7-12.2) 01/04/18 11:43 INR 1.1 01/04/18 11:43 APTT 26 SECONDS (21-34) 01/04/18 11:43 - Additional Findings Additional findings: - Constitutional Appears: Non-toxic, No Acute Distress - Head Exam Head Exam: ATRAUMATIC, NORMAL INSPECTION, NORMOCEPHALIC - Eye Exam Eye Exam: PERRL (sluggish response on the left). EOMI - ENT Exam ENT Exam: Mucous Membranes Moist - Respiratory Exam Respiratory Exam: Clear to Ausculation Bilateral, NORMAL BREATHING PATTERN - Cardiovascular Exam Cardiovascular Exam: RRR, +S1, +S2 - GI/Abdominal Exam GI & Abdominal Exam: Tender (mild epigastric) Soft, Normal Bowel Sounds. absent : Distended - Extremities Exam Extremities Exam: absent: Calf Tenderness, Pedal Edema - Neurological Exam Neurological Exam: Alert, Awake. absent: CN II-XII Intact (left facial droop) Neuro motor strength exam: Left Upper Extremity: 0, Right Upper Extremity: 4, Left Lower Extremity: 0, Right Lower Extremity: 4 - Psychiatric Exam Psychiatric exam: Normal Affect, Normal Mood - Skin Skin Exam: Dry, Intact, Normal Color, Warm Assessment and Plan - Assessment and Plan (Free Text) Plan: Disposition: Patient needs acute rehab at discharge, however she has no insurance. Will continue to work with case management for discharge plans. Per PT, patient can not use a wheelchair because she cannot transfer from bed to chair without max assistance. No changes at this time. Acute CVA affecting the right parietal/temporal area. * Dr. Castillo (neuro) consulted, help appreciated * Pureed/dysphagia diet * Head of bed elevation * PT/OT Imaging: * 01/[address]: Large hypodensity at the right brain suggestive of acute right MCA territory infarction. Suspicious for right dense MCA sign. If clinically warranted CTA of the head is suggested to evaluate for right MCA occlusion. * 01/04 CTA head and neck: Focal moderate stenosis approximately 75-80 percent noted at the origin of the right internal carotid artery with possible soft plaque. Mild approximately 55 percent stenosis noted at the origin of the left internal carotid artery. Diffuse atherosclerotic disease and calcification noted at the distal internal carotid arteries bilaterally with foci of mild stenosis noted at the supraclinoid portion of the left internal carotid artery. Diffuse approximately 50 percent stenosis of M1 segment of the right middle cerebral artery. Sharp cut off at the M1 bifurcation of the right middle cerebral artery noted. Occlusion of the anterior temporal M2 segment of the right middle cerebral artery at its origin. * 01/[address]: Acute infarct in the right frontal, parietal and temporal lobes. No acute hemorrhage. Midline shift to the left. Prior images have been requested for direct comparison. Comparison is made to prior report. * 01/04 Echo: Normal study with EF 65-70% * 01/[address]: Large right MCA and LAURI territory infarct changes which involve a large portion of the right cerebral hemisphere. The infarct exerts considerable mass effect with overlying sulcal effacement and compressive effects on the right lateral ventricle particularly the right temporal horn with mild [id number] midline shift. No evidence of acute intracranial hemorrhage. Mild underlying chronic white matter ischemic changes seen left cerebral hemisphere as well. No obstructive hydrocephalus. * 01/05 MRI Brain: Acute infarct changes involving a good portion of the right cerebral hemisphere (distal branches of the right middle cerebral artery and anterior cerebral nor arteries). Questionable early hemorrhagic conversion changes right basal ganglia evidenced by foci of dark T2 signal in these locations on gradient echo sequence with isointense T1 signal. Persistent mass effect with mild midline shift. HEMORRHAGE: Questionable early hemorrhagic conversion changes right basal ganglia evidenced by foci of dark T2 signal in these locations on gradient echo sequence with isointense T1 signal * 01/05 Lower extremity US: negative for DVT * 01/[address]: Stable large right renal infarcted involving the right anterior middle cerebral artery territories as discussed above with stable mass effect effacing the sulci of the right cerebral hemisphere in causing a limited leftward some fall seen shift of 3-4 mm once again. No interval intracranial hemorrhage or expansion of the infarcted territory appreciated. Limited age- related neuro degenerative change reiterated at the left cerebral hemisphere. * 01/[address]: Acute/ subacute right frontotemporoparietal infarct. This involves both the LAURI and MCA territory. No hemorrhage. 2-3 mm midline shift towards the left. No significant change from prior examination. * 01/[address]: Expected changes status post right frontotemporoparietal infarct now with cortical laminar necrosis. No hemorrhage. Minimal midline shift. Meds: * Norvasc 10 mg QD * Lisinopril 5 mg QD * ASA 81 mg QD * Plavix 75 mg QD * discontinued Valproate 500 mg IV Q12h due to elevated liver enzymes * Seroquel 25 mg QD * Fluoxetine 20 mg QD * Zinc 220 mg QD Heavy alcohol use * Counseled on cessation Hyperlipidemia * Cholesterol 210, Triglycerides 248, LDL 92, HDL 81 * Crestor 40 mg HS Prophylaxis * Pepcid 20 mg BID * SCDs * Claritin PRN allergy symptoms
[2018-01-20] MEDS ORDERED: Magnesium Hydroxide Susp 30 ml UD PO ONE (21:00)
[2018-01-20] MEDS: Tetrahydrozoline Opht 0.05% Sol (15 ml) OD PRN (23:53)
--- NOTE | 2018-01-21 08:01 | CP.PCM.PN ---
Subjective - Date & Time of Evaluation Date of Evaluation: 01/21/18 Time of Evaluation: 08:01 - Subjective Subjective: Ms. Bui is seen and examined at the bedside. She remains alert. She denies any headache, dizziness, nausea, or vomiting. She state of able to progress with her physical therapy yesterday such as able to walk few steps.She is able to follow simple commands with left facial droop, left side hemiplegia, and left side neglect.She is requesting to professor of social work to assist her with her insurance and possible rehab. placement. She has bilateral SCD on her lower extremities.She remains on telesitter for patient safety. There was no untoward events overnight. Objective - Vital Signs/Intake and Output Vital Signs (last 24 hours): Temp Pulse Resp BP Pulse Ox 98.2 F 80 20 158/91 H 95 01/21/18 07:00 01/21/18 07:00 01/21/18 07:00 01/21/18 07:00 01/21/18 07:00 Intake and Output: 01/21/18 01/21/18 06:59 18:59 Output Total 750 Balance -750 - Medications Medications: Current Medications Amlodipine Besylate (Norvasc) 10 mg PO DAILY [facility] Last Admin: 01/20/18 09:01 Dose: 10 mg Ascorbic Acid (Vitamin C 500 Mg Tab) 500 mg PO DAILY [facility] Last Admin: 01/20/18 09:18 Dose: 500 mg Aspirin (Aspirin Chewable) 81 mg NG DAILY [facility] Last Admin: 01/20/18 09:02 Dose: 81 mg Clopidogrel Bisulfate (Plavix) 75 mg NG DAILY [facility] Last Admin: 01/20/18 09:02 Dose: 75 mg Docusate Sodium (Colace) 100 mg PO BID [facility] Last Admin: 01/20/18 17:22 Dose: 100 mg Famotidine (Pepcid) 20 mg PO BID [facility] Last Admin: 01/20/18 17:21 Dose: 20 mg Fluoxetine HCl (Prozac) 20 mg PO DAILY [facility] Stop: 02/07/18 18:14 Last Admin: 01/20/18 09:02 Dose: 20 mg Folic Acid (Folic Acid) 1 mg PO DAILY [facility] Last Admin: 01/20/18 09:02 Dose: 1 mg Lisinopril (Zestril) 5 mg PO DAILY [facility] Last Admin: 01/20/18 09:02 Dose: 5 mg Loratadine (Claritin) 10 mg PO DAILY PRN PRN Reason: Allergy symptoms Last Admin: 01/20/18 09:02 Dose: 10 mg Magnesium Oxide (Mag-Ox) 400 mg PO BID [facility] Last Admin: 01/20/18 17:22 Dose: 400 mg Ondansetron HCl (Zofran Inj) 4 mg IVP DAILY@ONCE PRN PRN Reason: Nausea/Vomiting Last Admin: 01/20/18 22:52 Dose: 4 mg Quetiapine Fumarate (Seroquel) 25 mg PO DAILY [facility] Last Admin: 01/20/18 09:03 Dose: 25 mg Rosuvastatin Calcium (Crestor) 40 mg PO HS [facility] Last Admin: 01/20/18 21:14 Dose: 40 mg Tetrahydrozoline HCl/Zinc Sulfate (Visine 0.05% Opht Soln) 2 ml OD Q4H PRN PRN Reason: itchy eyes Last Admin: 01/20/18 23:53 Dose: 1 drop Zinc Sulfate (Zinc Sulfate 220 Mg Cap) 220 mg PO DAILY [facility] Last Admin: 01/20/18 09:03 Dose: 220 mg - Labs Labs: 01/19/18 07:12 01/19/18 07:12 PT 12.2 SECONDS (9.7-12.2) 01/04/18 11:43 INR 1.1 01/04/18 11:43 APTT 26 SECONDS (21-34) 01/04/18 11:43 - Constitutional Appears: No Acute Distress - Head Exam Head Exam: NORMAL INSPECTION - Neurological Exam Neurological Exam: Alert, Awake, Oriented x3 Neuro motor strength exam: Left Upper Extremity: 0, Right Upper Extremity: 5, Left Lower Extremity: 0, Right Lower Extremity: 5 Additional comments: Neurological unchanged from previous examination. Assessment and Plan (1) CVA (cerebral vascular accident) Assessment & Plan: Case discussed with Dr. Jacob, continue all current medical, physical, occupational, and speech therapies. Will monitor for any s/s seizures. Recommend professor of social work referral for assistance with rehab. placement. Status: Acute
[2018-01-21] MEDS: Magnesium Oxide 400 mg Tab UD PO SCH ×2 (10:47→17:35)
--- NOTE | 2018-01-21 15:21 | CP.PCM.PN ---
<Juanita Yan - Last Filed: 01/21/18 15:18> Subjective - Date & Time of Evaluation Date of Evaluation: 01/21/18 Time of Evaluation: 15:19 - Subjective Subjective: Patient seen and examined at bedside. Patient resting comfortably in bed. Patient was having some abdominal pain and lightheadedness this morning. Patient still with paralysis of LUE and LLE. She denies fever, chills, chest pain, SOB, and pain/swelling in the lower extremities. Objective - Vital Signs/Intake and Output Vital Signs (last 24 hours): Temp Pulse Resp BP Pulse Ox 98.2 F 80 20 158/91 H 95 01/21/18 07:00 01/21/18 07:00 01/21/18 07:00 01/21/18 07:00 01/21/18 07:00 Intake and Output: 01/21/18 01/21/18 06:59 18:59 Output Total 750 Balance -750 - Medications Medications: Current Medications Amlodipine Besylate (Norvasc) 10 mg PO DAILY [facility] Last Admin: 01/21/18 10:46 Dose: 10 mg Ascorbic Acid (Vitamin C 500 Mg Tab) 500 mg PO DAILY [facility] Last Admin: 01/21/18 10:47 Dose: 500 mg Aspirin (Aspirin Chewable) 81 mg NG DAILY [facility] Last Admin: 01/21/18 10:45 Dose: 81 mg Clopidogrel Bisulfate (Plavix) 75 mg NG DAILY [facility] Last Admin: 01/21/18 10:47 Dose: 75 mg Docusate Sodium (Colace) 100 mg PO BID [facility] Last Admin: 01/21/18 10:45 Dose: 100 mg Famotidine (Pepcid) 20 mg PO BID [facility] Last Admin: 01/21/18 10:46 Dose: 20 mg Fluoxetine HCl (Prozac) 20 mg PO DAILY [facility] Stop: 02/07/18 18:14 Last Admin: 01/21/18 10:48 Dose: 20 mg Folic Acid (Folic Acid) 1 mg PO DAILY [facility] Last Admin: 01/21/18 10:46 Dose: 1 mg Lisinopril (Zestril) 5 mg PO DAILY [facility] Last Admin: 01/21/18 10:47 Dose: 5 mg Loratadine (Claritin) 10 mg PO DAILY PRN PRN Reason: Allergy symptoms Last Admin: 01/20/18 09:02 Dose: 10 mg Magnesium Oxide (Mag-Ox) 400 mg PO BID [facility] Last Admin: 01/21/18 10:47 Dose: 400 mg Ondansetron HCl (Zofran Inj) 4 mg IVP DAILY@ONCE PRN PRN Reason: Nausea/Vomiting Last Admin: 01/20/18 22:52 Dose: 4 mg Quetiapine Fumarate (Seroquel) 25 mg PO DAILY [facility] Last Admin: 01/21/18 10:45 Dose: 25 mg Rosuvastatin Calcium (Crestor) 40 mg PO HS [facility] Last Admin: 01/20/18 21:14 Dose: 40 mg Tetrahydrozoline HCl/Zinc Sulfate (Visine 0.05% Opht Soln) 2 ml OD Q4H PRN PRN Reason: itchy eyes Last Admin: 01/20/18 23:53 Dose: 1 drop Zinc Sulfate (Zinc Sulfate 220 Mg Cap) 220 mg PO DAILY [facility] Last Admin: 01/21/18 10:47 Dose: 220 mg - Labs Labs: 01/19/18 07:12 01/19/18 07:12 PT 12.2 SECONDS (9.7-12.2) 01/04/18 11:43 INR 1.1 01/04/18 11:43 APTT 26 SECONDS (21-34) 01/04/18 11:43 - Additional Findings Additional findings: - Constitutional Appears: Non-toxic, No Acute Distress - Head Exam Head Exam: ATRAUMATIC, NORMAL INSPECTION, NORMOCEPHALIC - Eye Exam Eye Exam: PERRL (sluggish response on the left). EOMI - ENT Exam ENT Exam: Mucous Membranes Moist - Respiratory Exam Respiratory Exam: Clear to Ausculation Bilateral, NORMAL BREATHING PATTERN - Cardiovascular Exam Cardiovascular Exam: RRR, +S1, +S2 - GI/Abdominal Exam GI & Abdominal Exam: Tender (mild epigastric) Soft, Normal Bowel Sounds. absent : Distended - Extremities Exam Extremities Exam: absent: Calf Tenderness, Pedal Edema - Neurological Exam Neurological Exam: Alert, Awake. absent: CN II-XII Intact (left facial droop) Neuro motor strength exam: Left Upper Extremity: 0, Right Upper Extremity: 4, Left Lower Extremity: 0, Right Lower Extremity: 4 - Psychiatric Exam Psychiatric exam: Normal Affect, Normal Mood - Skin Skin Exam: Dry, Intact, Normal Color, Warm Assessment and Plan - Assessment and Plan (Free Text) Plan: Disposition: Patient needs acute rehab at discharge, however she has no insurance. Will continue to work with case management for discharge plans. Per PT, patient can not use a wheelchair because she cannot transfer from bed to chair without max assistance. No changes at this time. Acute CVA affecting the right parietal/temporal area. * Dr. Castillo (neuro) consulted, help appreciated * Pureed/dysphagia diet * Head of bed elevation * PT/OT Imaging: * 01/[address]: Large hypodensity at the right brain suggestive of acute right MCA territory infarction. Suspicious for right dense MCA sign. If clinically warranted CTA of the head is suggested to evaluate for right MCA occlusion. * 01/04 CTA head and neck: Focal moderate stenosis approximately 75-80 percent noted at the origin of the right internal carotid artery with possible soft plaque. Mild approximately 55 percent stenosis noted at the origin of the left internal carotid artery. Diffuse atherosclerotic disease and calcification noted at the distal internal carotid arteries bilaterally with foci of mild stenosis noted at the supraclinoid portion of the left internal carotid artery. Diffuse approximately 50 percent stenosis of M1 segment of the right middle cerebral artery. Sharp cut off at the M1 bifurcation of the right middle cerebral artery noted. Occlusion of the anterior temporal M2 segment of the right middle cerebral artery at its origin. * 01/[address]: Acute infarct in the right frontal, parietal and temporal lobes. No acute hemorrhage. Midline shift to the left. Prior images have been requested for direct comparison. Comparison is made to prior report. * 01/04 Echo: Normal study with EF 65-70% * 01/[address]: Large right MCA and LAURI territory infarct changes which involve a large portion of the right cerebral hemisphere. The infarct exerts considerable mass effect with overlying sulcal effacement and compressive effects on the right lateral ventricle particularly the right temporal horn with mild [id number] midline shift. No evidence of acute intracranial hemorrhage. Mild underlying chronic white matter ischemic changes seen left cerebral hemisphere as well. No obstructive hydrocephalus. * 01/05 MRI Brain: Acute infarct changes involving a good portion of the right cerebral hemisphere (distal branches of the right middle cerebral artery and anterior cerebral nor arteries). Questionable early hemorrhagic conversion changes right basal ganglia evidenced by foci of dark T2 signal in these locations on gradient echo sequence with isointense T1 signal. Persistent mass effect with mild midline shift. HEMORRHAGE: Questionable early hemorrhagic conversion changes right basal ganglia evidenced by foci of dark T2 signal in these locations on gradient echo sequence with isointense T1 signal * 01/05 Lower extremity US: negative for DVT * 01/[address]: Stable large right renal infarcted involving the right anterior middle cerebral artery territories as discussed above with stable mass effect effacing the sulci of the right cerebral hemisphere in causing a limited leftward some fall seen shift of 3-4 mm once again. No interval intracranial hemorrhage or expansion of the infarcted territory appreciated. Limited age- related neuro degenerative change reiterated at the left cerebral hemisphere. * 01/[address]: Acute/ subacute right frontotemporoparietal infarct. This involves both the LAURI and MCA territory. No hemorrhage. 2-3 mm midline shift towards the left. No significant change from prior examination. * 01/[address]: Expected changes status post right frontotemporoparietal infarct now with cortical laminar necrosis. No hemorrhage. Minimal midline shift. Meds: * Norvasc 10 mg QD * Lisinopril 5 mg QD * ASA 81 mg QD * Plavix 75 mg QD * discontinued Valproate 500 mg IV Q12h due to elevated liver enzymes * Seroquel 25 mg QD * Fluoxetine 20 mg QD * Zinc 220 mg QD Heavy alcohol use * Counseled on cessation Hyperlipidemia * Cholesterol 210, Triglycerides 248, LDL 92, HDL 81 * Crestor 40 mg HS Prophylaxis * Pepcid 20 mg BID * SCDs * Claritin PRN allergy symptoms <Vitaliy Villarreal H - Last Filed: 01/21/18 16:07> Objective - Vital Signs/Intake and Output Vital Signs (last 24 hours): Temp Pulse Resp BP Pulse Ox 98.2 F 80 20 158/91 H 95 01/21/18 07:00 01/21/18 07:00 01/21/18 07:00 01/21/18 07:00 01/21/18 07:00 Intake and Output: 01/21/18 01/21/18 06:59 18:59 Output Total 750 Balance -750 - Medications Medications: Current Medications Amlodipine Besylate (Norvasc) 10 mg PO DAILY [facility] Last Admin: 01/21/18 10:46 Dose: 10 mg Ascorbic Acid (Vitamin C 500 Mg Tab) 500 mg PO DAILY [facility] Last Admin: 01/21/18 10:47 Dose: 500 mg Aspirin (Aspirin Chewable) 81 mg NG DAILY [facility] Last Admin: 01/21/18 10:45 Dose: 81 mg Clopidogrel Bisulfate (Plavix) 75 mg NG DAILY [facility] Last Admin: 01/21/18 10:47 Dose: 75 mg Docusate Sodium (Colace) 100 mg PO BID [facility] Last Admin: 01/21/18 10:45 Dose: 100 mg Famotidine (Pepcid) 20 mg PO BID [facility] Last Admin: 01/21/18 10:46 Dose: 20 mg Fluoxetine HCl (Prozac) 20 mg PO DAILY [facility] Stop: 02/07/18 18:14 Last Admin: 01/21/18 10:48 Dose: 20 mg Folic Acid (Folic Acid) 1 mg PO DAILY [facility] Last Admin: 01/21/18 10:46 Dose: 1 mg Lisinopril (Zestril) 5 mg PO DAILY [facility] Last Admin: 01/21/18 10:47 Dose: 5 mg Loratadine (Claritin) 10 mg PO DAILY PRN PRN Reason: Allergy symptoms Last Admin: 01/20/18 09:02 Dose: 10 mg Magnesium Oxide (Mag-Ox) 400 mg PO BID [facility] Last Admin: 01/21/18 10:47 Dose: 400 mg Ondansetron HCl (Zofran Inj) 4 mg IVP DAILY@ONCE PRN PRN Reason: Nausea/Vomiting Last Admin: 01/20/18 22:52 Dose: 4 mg Quetiapine Fumarate (Seroquel) 25 mg PO DAILY [facility] Last Admin: 01/21/18 10:45 Dose: 25 mg Rosuvastatin Calcium (Crestor) 40 mg PO HS [facility] Last Admin: 01/20/18 21:14 Dose: 40 mg Tetrahydrozoline HCl/Zinc Sulfate (Visine 0.05% Opht Soln) 2 ml OD Q4H PRN PRN Reason: itchy eyes Last Admin: 01/20/18 23:53 Dose: 1 drop Zinc Sulfate (Zinc Sulfate 220 Mg Cap) 220 mg PO DAILY [facility] Last Admin: 01/21/18 10:47 Dose: 220 mg - Labs Labs: 01/19/18 07:12 01/19/18 07:12 PT 12.2 SECONDS (9.7-12.2) 01/04/18 11:43 INR 1.1 01/04/18 11:43 APTT 26 SECONDS (21-34) 01/04/18 11:43 Attending/Attestation - Attestation I have personally seen and examined this patient.: Yes I have fully participated in the care of the patient.: Yes I have reviewed all pertinent clinical information, including history, physical exam and plan: Yes Notes (Text): 01/21/18 16:05 Medical attending: Patient was seen and examined by me. Agree with the above note by the resident The patient's family member Reba Bui at bedside as well. There are no new changes from previous. She continues to have ongoing left arm and left leg unable to movement At this moment we are pending to see if case/social services technician will be able to arrange for some sort of therapy or PT that she can go to. Because of social situation she does not have Medicaid at this moment. thank you Vitaliy Villarreal
[2018-01-21] MEDS ORDERED: Sucralfate 1 gm/10 ml Oral Susp UD PO STA (20:44)
[2018-01-21] MEDS: Saccharomyces Boulardi 250 mg Cap PO SCH (21:24)
--- NOTE | 2018-01-22 06:38 | CP.PCM.PN ---
Subjective - Date & Time of Evaluation Date of Evaluation: 01/22/18 Time of Evaluation: 06:38 - Subjective Subjective: Ms. Bui is seen and examined at the bedside. She remains alert. She denies any headache, dizziness, nausea, or vomiting. She state of able to progress with her physical therapy yesterday such as able to walk few steps.She is able to follow simple commands with left facial droop, left side hemiplegia, and left side neglect. She has bilateral SCD on her lower extremities.She remains on telesitter for patient safety. There was no untoward events overnight. Objective - Vital Signs/Intake and Output Vital Signs (last 24 hours): Temp Pulse Resp BP Pulse Ox 98.4 F 81 20 122/83 99 01/21/18 23:20 01/21/18 23:20 01/21/18 23:20 01/21/18 23:20 01/21/18 23:20 Intake and Output: 01/21/18 01/22/18 18:59 06:59 Intake Total 600 Balance 600 - Medications Medications: Current Medications Acetaminophen (Tylenol 325mg Tab) 975 mg PO Q6 PRN PRN Reason: Pain, Mild (1-3) Last Admin: 01/21/18 23:52 Dose: 975 mg Amlodipine Besylate (Norvasc) 10 mg PO DAILY [facility] Last Admin: 01/21/18 10:46 Dose: 10 mg Ascorbic Acid (Vitamin C 500 Mg Tab) 500 mg PO DAILY [facility] Last Admin: 01/21/18 10:47 Dose: 500 mg Aspirin (Aspirin Chewable) 81 mg NG DAILY [facility] Last Admin: 01/21/18 10:45 Dose: 81 mg Clopidogrel Bisulfate (Plavix) 75 mg NG DAILY [facility] Last Admin: 01/21/18 10:47 Dose: 75 mg Docusate Sodium (Colace) 100 mg PO BID [facility] Last Admin: 01/21/18 17:35 Dose: 100 mg Famotidine (Pepcid) 20 mg PO BID [facility] Last Admin: 01/21/18 17:35 Dose: 20 mg Fluoxetine HCl (Prozac) 20 mg PO DAILY [facility] Stop: 02/07/18 18:14 Last Admin: 01/21/18 10:48 Dose: 20 mg Folic Acid (Folic Acid) 1 mg PO DAILY [facility] Last Admin: 01/21/18 10:46 Dose: 1 mg Lisinopril (Zestril) 5 mg PO DAILY [facility] Last Admin: 01/21/18 10:47 Dose: 5 mg Loratadine (Claritin) 10 mg PO DAILY PRN PRN Reason: Allergy symptoms Last Admin: 01/20/18 09:02 Dose: 10 mg Magnesium Oxide (Mag-Ox) 400 mg PO BID [facility] Last Admin: 01/21/18 17:35 Dose: 400 mg Ondansetron HCl (Zofran Inj) 4 mg IVP DAILY@ONCE PRN PRN Reason: Nausea/Vomiting Last Admin: 01/20/18 22:52 Dose: 4 mg Quetiapine Fumarate (Seroquel) 25 mg PO DAILY [facility] Last Admin: 01/21/18 10:45 Dose: 25 mg Rosuvastatin Calcium (Crestor) 40 mg PO HS [facility] Last Admin: 01/21/18 21:23 Dose: 40 mg Saccharomyces Boulardii (Florastor) 250 mg PO BID [facility] Last Admin: 01/21/18 21:24 Dose: 250 mg Tetrahydrozoline HCl/Zinc Sulfate (Visine 0.05% Opht Soln) 2 ml OD Q4H PRN PRN Reason: itchy eyes Last Admin: 01/20/18 23:53 Dose: 1 drop Zinc Sulfate (Zinc Sulfate 220 Mg Cap) 220 mg PO DAILY [facility] Last Admin: 01/21/18 10:47 Dose: 220 mg - Labs Labs: 01/19/18 07:12 01/19/18 07:12 PT 12.2 SECONDS (9.7-12.2) 01/04/18 11:43 INR 1.1 01/04/18 11:43 APTT 26 SECONDS (21-34) 01/04/18 11:43 Assessment and Plan (1) CVA (cerebral vascular accident) Assessment & Plan: Case discussed with Dr. Jacob, continue all current medical, physical, occupational, and speech therapies. Recommend blood pressure and glycemic control. Status: Acute
[2018-01-22] MEDS ORDERED: guaiFENesin 600 mg ER Tab PO ONE (07:31)
--- NOTE | 2018-01-22 10:03 | CP.PCM.PN ---
<Juanita Yan - Last Filed: 01/22/18 11:04> Subjective - Date & Time of Evaluation Date of Evaluation: 01/22/18 Time of Evaluation: 10:00 - Subjective Subjective: Patient seen and examined at bedside. Patient resting comfortably in bed. Patient feels congested this morning and is asking for a decongestant. She was having some vaginal itching yesterday afternoon and was given a 1 time dose of diflucan. Patient says it is better this morning. Patient still with paralysis of LUE and LLE. She denies dizziness, fever, chills, chest pain, SOB, and pain/ swelling in the lower extremities. Objective - Vital Signs/Intake and Output Vital Signs (last 24 hours): Temp Pulse Resp BP Pulse Ox 98.2 F 78 20 129/89 99 01/22/18 07:30 01/22/18 07:30 01/22/18 07:30 01/22/18 07:30 01/22/18 07:30 Intake and Output: 01/22/18 01/22/18 06:59 18:59 Intake Total 600 Balance 600 - Medications Medications: Current Medications Acetaminophen (Tylenol 325mg Tab) 975 mg PO Q6 PRN PRN Reason: Pain, Mild (1-3) Last Admin: 01/21/18 23:52 Dose: 975 mg Amlodipine Besylate (Norvasc) 10 mg PO DAILY [facility] Last Admin: 01/21/18 10:46 Dose: 10 mg Ascorbic Acid (Vitamin C 500 Mg Tab) 500 mg PO DAILY [facility] Last Admin: 01/21/18 10:47 Dose: 500 mg Aspirin (Aspirin Chewable) 81 mg NG DAILY [facility] Last Admin: 01/21/18 10:45 Dose: 81 mg Clopidogrel Bisulfate (Plavix) 75 mg NG DAILY [facility] Last Admin: 01/21/18 10:47 Dose: 75 mg Docusate Sodium (Colace) 100 mg PO BID [facility] Last Admin: 01/21/18 17:35 Dose: 100 mg Famotidine (Pepcid) 20 mg PO BID [facility] Last Admin: 01/21/18 17:35 Dose: 20 mg Fluoxetine HCl (Prozac) 20 mg PO DAILY [facility] Stop: 02/07/18 18:14 Last Admin: 01/21/18 10:48 Dose: 20 mg Folic Acid (Folic Acid) 1 mg PO DAILY [facility] Last Admin: 01/21/18 10:46 Dose: 1 mg Lisinopril (Zestril) 5 mg PO DAILY [facility] Last Admin: 01/21/18 10:47 Dose: 5 mg Loratadine (Claritin) 10 mg PO DAILY PRN PRN Reason: Allergy symptoms Last Admin: 01/20/18 09:02 Dose: 10 mg Magnesium Oxide (Mag-Ox) 400 mg PO BID [facility] Last Admin: 01/21/18 17:35 Dose: 400 mg Ondansetron HCl (Zofran Inj) 4 mg IVP DAILY@ONCE PRN PRN Reason: Nausea/Vomiting Last Admin: 01/20/18 22:52 Dose: 4 mg Quetiapine Fumarate (Seroquel) 25 mg PO DAILY [facility] Last Admin: 01/21/18 10:45 Dose: 25 mg Rosuvastatin Calcium (Crestor) 40 mg PO HS [facility] Last Admin: 01/21/18 21:23 Dose: 40 mg Saccharomyces Boulardii (Florastor) 250 mg PO BID [facility] Last Admin: 01/21/18 21:24 Dose: 250 mg Tetrahydrozoline HCl/Zinc Sulfate (Visine 0.05% Opht Soln) 2 ml OD Q4H PRN PRN Reason: itchy eyes Last Admin: 01/20/18 23:53 Dose: 1 drop Zinc Sulfate (Zinc Sulfate 220 Mg Cap) 220 mg PO DAILY [facility] Last Admin: 01/21/18 10:47 Dose: 220 mg - Labs Labs: 01/19/18 07:12 01/19/18 07:12 PT 12.2 SECONDS (9.7-12.2) 01/04/18 11:43 INR 1.1 01/04/18 11:43 APTT 26 SECONDS (21-34) 01/04/18 11:43 - Additional Findings Additional findings: - Constitutional Appears: Non-toxic, No Acute Distress - Head Exam Head Exam: ATRAUMATIC, NORMAL INSPECTION, NORMOCEPHALIC - Eye Exam Eye Exam: PERRL (sluggish response on the left). EOMI - ENT Exam ENT Exam: Mucous Membranes Moist - Respiratory Exam Respiratory Exam: Clear to Ausculation Bilateral, NORMAL BREATHING PATTERN - Cardiovascular Exam Cardiovascular Exam: RRR, +S1, +S2 - GI/Abdominal Exam GI & Abdominal Exam: Tender (mild epigastric) Soft, Normal Bowel Sounds. absent : Distended - Extremities Exam Extremities Exam: absent: Calf Tenderness, Pedal Edema - Neurological Exam Neurological Exam: Alert, Awake. absent: CN II-XII Intact (left facial droop) Neuro motor strength exam: Left Upper Extremity: 0, Right Upper Extremity: 4, Left Lower Extremity: 0, Right Lower Extremity: 4 - Psychiatric Exam Psychiatric exam: Normal Affect, Normal Mood - Skin Skin Exam: Dry, Intact, Normal Color, Warm Assessment and Plan - Assessment and Plan (Free Text) Plan: Disposition: Patient needs acute rehab at discharge, however she has no insurance. Will continue to work with case management for discharge plans. Per PT, patient can not use a wheelchair because she cannot transfer from bed to chair without max assistance. No changes at this time. Acute CVA affecting the right parietal/temporal area. * Dr. Castillo (neuro) consulted, help appreciated * Pureed/dysphagia diet * Head of bed elevation * PT/OT Imaging: * 01/[address]: Large hypodensity at the right brain suggestive of acute right MCA territory infarction. Suspicious for right dense MCA sign. If clinically warranted CTA of the head is suggested to evaluate for right MCA occlusion. * 01/04 CTA head and neck: Focal moderate stenosis approximately 75-80 percent noted at the origin of the right internal carotid artery with possible soft plaque. Mild approximately 55 percent stenosis noted at the origin of the left internal carotid artery. Diffuse atherosclerotic disease and calcification noted at the distal internal carotid arteries bilaterally with foci of mild stenosis noted at the supraclinoid portion of the left internal carotid artery. Diffuse approximately 50 percent stenosis of M1 segment of the right middle cerebral artery. Sharp cut off at the M1 bifurcation of the right middle cerebral artery noted. Occlusion of the anterior temporal M2 segment of the right middle cerebral artery at its origin. * 01/[address]: Acute infarct in the right frontal, parietal and temporal lobes. No acute hemorrhage. Midline shift to the left. Prior images have been requested for direct comparison. Comparison is made to prior report. * 01/04 Echo: Normal study with EF 65-70% * 01/[address]: Large right MCA and LAURI territory infarct changes which involve a large portion of the right cerebral hemisphere. The infarct exerts considerable mass effect with overlying sulcal effacement and compressive effects on the right lateral ventricle particularly the right temporal horn with mild [id number] midline shift. No evidence of acute intracranial hemorrhage. Mild underlying chronic white matter ischemic changes seen left cerebral hemisphere as well. No obstructive hydrocephalus. * 01/05 MRI Brain: Acute infarct changes involving a good portion of the right cerebral hemisphere (distal branches of the right middle cerebral artery and anterior cerebral nor arteries). Questionable early hemorrhagic conversion changes right basal ganglia evidenced by foci of dark T2 signal in these locations on gradient echo sequence with isointense T1 signal. Persistent mass effect with mild midline shift. HEMORRHAGE: Questionable early hemorrhagic conversion changes right basal ganglia evidenced by foci of dark T2 signal in these locations on gradient echo sequence with isointense T1 signal * 01/05 Lower extremity US: negative for DVT * 01/[address]: Stable large right renal infarcted involving the right anterior middle cerebral artery territories as discussed above with stable mass effect effacing the sulci of the right cerebral hemisphere in causing a limited leftward some fall seen shift of 3-4 mm once again. No interval intracranial hemorrhage or expansion of the infarcted territory appreciated. Limited age- related neuro degenerative change reiterated at the left cerebral hemisphere. * 01/[address]: Acute/ subacute right frontotemporoparietal infarct. This involves both the LAURI and MCA territory. No hemorrhage. 2-3 mm midline shift towards the left. No significant change from prior examination. * 01/[address]: Expected changes status post right frontotemporoparietal infarct now with cortical laminar necrosis. No hemorrhage. Minimal midline shift. Meds: * Norvasc 10 mg QD * Lisinopril 5 mg QD * ASA 81 mg QD * Plavix 75 mg QD * discontinued Valproate 500 mg IV Q12h due to elevated liver enzymes * Seroquel 25 mg QD * Fluoxetine 20 mg QD * Zinc 220 mg QD Suprapubic Abdominal Pain * UA * Urine culture * CT abdomen and pelvis without contrast * Post void residual Vaginal yeast infection * Diflucan 200 mg PO once * Florastor 250 PO BID Seasonal Allergies * Claritin PRN * Visine PRN * Mucinex x1 dose on 01/22 Heavy alcohol use * Counseled on cessation Hyperlipidemia * Cholesterol 210, Triglycerides 248, LDL 92, HDL 81 * Crestor 40 mg HS Prophylaxis * Pepcid 20 mg BID * SCDs * Claritin PRN allergy symptoms <Vitaliy Villarreal - Last Filed: 01/22/18 12:45> Objective - Vital Signs/Intake and Output Vital Signs (last 24 hours): Temp Pulse Resp BP Pulse Ox 98.2 F 78 20 129/89 99 01/22/18 07:30 01/22/18 07:30 01/22/18 07:30 01/22/18 07:30 01/22/18 07:30 Intake and Output: 01/22/18 01/22/18 06:59 18:59 Intake Total 600 Balance 600 - Medications Medications: Current Medications Acetaminophen (Tylenol 325mg Tab) 975 mg PO Q6 PRN PRN Reason: Pain, Mild (1-3) Last Admin: 01/21/18 23:52 Dose: 975 mg Amlodipine Besylate (Norvasc) 10 mg PO DAILY [facility] Last Admin: 01/22/18 10:12 Dose: 10 mg Ascorbic Acid (Vitamin C 500 Mg Tab) 500 mg PO DAILY [facility] Last Admin: 01/22/18 10:12 Dose: 500 mg Aspirin (Aspirin Chewable) 81 mg NG DAILY [facility] Last Admin: 01/22/18 10:12 Dose: 81 mg Clopidogrel Bisulfate (Plavix) 75 mg NG DAILY [facility] Last Admin: 01/22/18 10:12 Dose: 75 mg Docusate Sodium (Colace) 100 mg PO BID [facility] Last Admin: 01/22/18 10:12 Dose: 100 mg Famotidine (Pepcid) 20 mg PO BID [facility] Last Admin: 01/22/18 10:11 Dose: 20 mg Fluoxetine HCl (Prozac) 20 mg PO DAILY [facility] Stop: 02/07/18 18:14 Last Admin: 01/22/18 10:13 Dose: 20 mg Folic Acid (Folic Acid) 1 mg PO DAILY [facility] Last Admin: 01/22/18 10:12 Dose: 1 mg Lisinopril (Zestril) 5 mg PO DAILY [facility] Last Admin: 01/22/18 10:12 Dose: 5 mg Loratadine (Claritin) 10 mg PO DAILY PRN PRN Reason: Allergy symptoms Last Admin: 01/20/18 09:02 Dose: 10 mg Magnesium Oxide (Mag-Ox) 400 mg PO BID [facility] Last Admin: 01/22/18 10:11 Dose: 400 mg Ondansetron HCl (Zofran Inj) 4 mg IVP DAILY@ONCE PRN PRN Reason: Nausea/Vomiting Last Admin: 01/20/18 22:52 Dose: 4 mg Quetiapine Fumarate (Seroquel) 25 mg PO DAILY [facility] Last Admin: 01/22/18 10:12 Dose: 25 mg Rosuvastatin Calcium (Crestor) 40 mg PO HS [facility] Last Admin: 01/21/18 21:23 Dose: 40 mg Saccharomyces Boulardii (Florastor) 250 mg PO BID [facility] Last Admin: 01/22/18 10:12 Dose: 250 mg Tetrahydrozoline HCl/Zinc Sulfate (Visine 0.05% Opht Soln) 2 ml OD Q4H PRN PRN Reason: itchy eyes Last Admin: 01/20/18 23:53 Dose: 1 drop Zinc Sulfate (Zinc Sulfate 220 Mg Cap) 220 mg PO DAILY [facility] Last Admin: 01/22/18 10:13 Dose: 220 mg - Labs Labs: 01/19/18 07:12 01/19/18 07:12 PT 12.2 SECONDS (9.7-12.2) 01/04/18 11:43 INR 1.1 01/04/18 11:43 APTT 26 SECONDS (21-34) 01/04/18 11:43 Attending/Attestation - Attestation I have personally seen and examined this patient.: Yes I have fully participated in the care of the patient.: Yes I have reviewed all pertinent clinical information, including history, physical exam and plan: Yes Notes (Text): 01/22/18 12:43 Medical attending: Patient was seen and examined by me, agree with the above note by the resident The patient was not in any acute distress today. Family member present at bedside. The patient today reported fullness in her lower abdomen. It feels full on exmaination and so will check to see if there is a potential urinary retention. Also a UA and urine culture and sensitivity CT of the abdomen and pelvis as well thank you Vitaliy Villarreal
[2018-01-22] MEDS: Magnesium Oxide 400 mg Tab UD PO SCH ×2 (10:11→17:35)
[2018-01-22] MEDS: Saccharomyces Boulardi 250 mg Cap PO SCH ×2 (10:12→17:34)
--- NOTE | 2018-01-22 12:41 | CT ---
PROCEDURE: CT Abdomen and Pelvis without intravenous contrast HISTORY: abdominal/right flank pain COMPARISON: None. TECHNIQUE: CT scan of the abdomen and pelvis was performed without administration of intravenous contrast. Oral contrast was not administered. Coronal and sagittal reformatted images were obtained. Radiation dose: Total exam DLP = Total exam DLP = 772.47 mGy-cm. This CT exam was performed using one or more of the following dose reduction techniques: Automated exposure control, adjustment of the mA and/or kV according to patient size, and/or use of iterative reconstruction technique. FINDINGS: LOWER THORAX: The lung bases are clear. LIVER: Normal in size. No gross lesion or ductal dilatation. GALLBLADDER AND BILE DUCTS: The gallbladder is contracted. PANCREAS: Normal in size. No gross lesion or ductal dilatation. SPLEEN: Normal in size. ADRENALS: No discrete nodule. KIDNEYS AND URETERS: Both kidneys are normal in size without nephrolithiasis. No hydronephrosis. No solid mass. VASCULATURE: There are early atherosclerotic aortoiliac calcifications. No aortic aneurysm. BOWEL: The small bowel loops are normal in caliber. There is large amount of stool in the colon and fecal stasis in the sigmoid colon and rectum. APPENDIX: Normal appendix. PERITONEUM: No free fluid. No free air. LYMPH NODES: No enlarged lymph nodes. BLADDER: Normal in appearance. REPRODUCTIVE: The uterus is normal in size. BONES: No acute fracture. Mild dextroscoliosis in the lumbar spine. Severe degenerative disc disease at L5-S1 with a vacuum disc. OTHER FINDINGS: There is a small fat containing umbilical hernia. IMPRESSION: 1. Constipation with fecal stasis in the sigmoid colon and rectum. No evidence of bowel obstruction. 2. No acute abdominal or pelvic abnormality.
[2018-01-22 13:04] LABS: SQUAMOUS EPITHIAL < 1 /hpf (0-5); URINE BACTERIA FEW (<OCC); URINE BILIRUBIN NEGATIVE (NEGATIVE); URINE BLOOD NEGATIVE (NEGATIVE); URINE CLARITY Hazy (Clear); URINE COLOR Yellow (YELLOW); URINE GLUCOSE (UA) NORMAL (Normal); URINE LEUKOCYTE ESTERASE 1+ Leu/uL (Negative); URINE PROTEIN NEGATIVE (NEGATIVE); URINE UROBILINOGEN NORMAL mg/dL (0.2-1.0)
--- NOTE | 2018-01-23 06:47 | CP.PCM.PN ---
Subjective - Date & Time of Evaluation Date of Evaluation: 01/23/18 Time of Evaluation: 06:47 - Subjective Subjective: Ms. Bui is seen and examined at the bedside. She remains alert, but very sleepy. She denies any headache, dizziness, nausea, or vomiting. She is unable to follow simple commands due to state of mind, with left facial droop, left side hemiplegia, and left side neglect. She has bilateral SCD on her lower extremities.She remains on telesitter for patient safety. There was no untoward events overnight. Objective - Vital Signs/Intake and Output Vital Signs (last 24 hours): Temp Pulse Resp BP Pulse Ox 98.2 F 73 20 103/69 96 01/23/18 04:38 01/23/18 04:38 01/23/18 04:38 01/23/18 04:38 01/23/18 04:38 Intake and Output: 01/22/18 01/23/18 18:59 06:59 Intake Total 800 Output Total 1050 Balance -250 - Medications Medications: Current Medications Acetaminophen (Tylenol 325mg Tab) 975 mg PO Q6 PRN PRN Reason: Pain, Mild (1-3) Last Admin: 01/21/18 23:52 Dose: 975 mg Amlodipine Besylate (Norvasc) 10 mg PO DAILY [facility] Last Admin: 01/22/18 10:12 Dose: 10 mg Ascorbic Acid (Vitamin C 500 Mg Tab) 500 mg PO DAILY [facility] Last Admin: 01/22/18 10:12 Dose: 500 mg Aspirin (Aspirin Chewable) 81 mg NG DAILY [facility] Last Admin: 01/22/18 10:12 Dose: 81 mg Clopidogrel Bisulfate (Plavix) 75 mg NG DAILY [facility] Last Admin: 01/22/18 10:12 Dose: 75 mg Docusate Sodium (Colace) 100 mg PO BID [facility] Last Admin: 01/22/18 17:35 Dose: 100 mg Famotidine (Pepcid) 20 mg PO BID [facility] Last Admin: 01/22/18 17:34 Dose: 20 mg Fluoxetine HCl (Prozac) 20 mg PO DAILY [facility] Stop: 02/07/18 18:14 Last Admin: 01/22/18 10:13 Dose: 20 mg Folic Acid (Folic Acid) 1 mg PO DAILY [facility] Last Admin: 01/22/18 10:12 Dose: 1 mg Lisinopril (Zestril) 5 mg PO DAILY [facility] Last Admin: 01/22/18 10:12 Dose: 5 mg Loratadine (Claritin) 10 mg PO DAILY PRN PRN Reason: Allergy symptoms Last Admin: 01/20/18 09:02 Dose: 10 mg Magnesium Oxide (Mag-Ox) 400 mg PO BID [facility] Last Admin: 01/22/18 17:35 Dose: 400 mg Ondansetron HCl (Zofran Inj) 4 mg IVP DAILY@ONCE PRN PRN Reason: Nausea/Vomiting Last Admin: 01/20/18 22:52 Dose: 4 mg Quetiapine Fumarate (Seroquel) 25 mg PO DAILY [facility] Last Admin: 01/22/18 10:12 Dose: 25 mg Rosuvastatin Calcium (Crestor) 40 mg PO HS [facility] Last Admin: 01/22/18 21:46 Dose: 40 mg Saccharomyces Boulardii (Florastor) 250 mg PO BID [facility] Last Admin: 01/22/18 17:34 Dose: 250 mg Tetrahydrozoline HCl/Zinc Sulfate (Visine 0.05% Opht Soln) 2 ml OD Q4H PRN PRN Reason: itchy eyes Last Admin: 01/20/18 23:53 Dose: 1 drop Zinc Sulfate (Zinc Sulfate 220 Mg Cap) 220 mg PO DAILY [facility] Last Admin: 01/22/18 10:13 Dose: 220 mg - Labs Labs: 01/19/18 07:12 01/19/18 07:12 PT 12.2 SECONDS (9.7-12.2) 01/04/18 11:43 INR 1.1 01/04/18 11:43 APTT 26 SECONDS (21-34) 01/04/18 11:43 - Constitutional Appears: No Acute Distress - Head Exam Head Exam: NORMAL INSPECTION - Neurological Exam Neuro motor strength exam: Left Upper Extremity: 0, Right Upper Extremity: 5, Left Lower Extremity: 2/1, Right Lower Extremity: 5 Additional comments: Neurological unchanged from previous examination, just sleepy this am. Assessment and Plan (1) CVA (cerebral vascular accident) Assessment & Plan: Case discussed with Dr. Jacob, continue all current medical, physical, occupational, and speech therapies. Recommend head of bed elevated, blood pressure and glycemic control.If the patient's mental status decline, please repeat CT scan of the head without contrast. Status: Acute
[2018-01-23] MEDS: Tetrahydrozoline Opht 0.05% Sol (15 ml) OD PRN (09:14)
[2018-01-23] MEDS ORDERED: POLYETHYLENE GLYCOL 3350 17 GM/Dose PACKET PO PRN (09:16)
[2018-01-23] MEDS ORDERED: guaiFENesin 600 mg ER Tab PO ONE ×2 (09:17→10:45)
--- NOTE | 2018-01-23 10:44 | CP.PCM.PN ---
<Juanita Yan - Last Filed: 01/23/18 10:57> Subjective - Date & Time of Evaluation Date of Evaluation: 01/23/18 Time of Evaluation: 10:36 - Subjective Subjective: Patient seen and examined at beside. Patient resting comfortably in bed. Patient is still having abdominal pain and feels constipated. She is still having some congestion this morning but says the mucinex helped yesterday. Patient still with paralysis of LUE and LLE. She denies dizziness, fever, chills , chest pain, SOB, and pain/swelling in the lower extremities. Objective - Vital Signs/Intake and Output Vital Signs (last 24 hours): Temp Pulse Resp BP Pulse Ox 98.2 F 93 H 20 125/88 99 01/23/18 07:00 01/23/18 07:00 01/23/18 07:00 01/23/18 07:00 01/23/18 07:00 Intake and Output: 01/23/18 01/23/18 06:59 18:59 Intake Total 800 Output Total 1050 Balance -250 - Medications Medications: Current Medications Acetaminophen (Tylenol 325mg Tab) 975 mg PO Q6 PRN PRN Reason: Pain, Mild (1-3) Last Admin: 01/21/18 23:52 Dose: 975 mg Amlodipine Besylate (Norvasc) 10 mg PO DAILY [facility], [facility] Last Admin: 01/22/18 10:12 Dose: 10 mg Ascorbic Acid (Vitamin C 500 Mg Tab) 500 mg PO DAILY [facility], [facility] Last Admin: 01/22/18 10:12 Dose: 500 mg Aspirin (Aspirin Chewable) 81 mg NG DAILY [facility], [facility] Last Admin: 01/22/18 10:12 Dose: 81 mg Clopidogrel Bisulfate (Plavix) 75 mg NG DAILY [facility], [facility] Last Admin: 01/22/18 10:12 Dose: 75 mg Docusate Sodium (Colace) 100 mg PO BID [facility] Last Admin: 01/22/18 17:35 Dose: 100 mg Famotidine (Pepcid) 20 mg PO BID [facility] Last Admin: 01/22/18 17:34 Dose: 20 mg Fluoxetine HCl (Prozac) 20 mg PO DAILY [facility]1983 Stop: 02/07/18 18:14 Last Admin: 01/22/18 10:13 Dose: 20 mg Folic Acid (Folic Acid) 1 mg PO DAILY [facility] Last Admin: 01/22/18 10:12 Dose: 1 mg Lisinopril (Zestril) 5 mg PO DAILY [facility] Last Admin: 01/22/18 10:12 Dose: 5 mg Loratadine (Claritin) 10 mg PO DAILY PRN PRN Reason: Allergy symptoms Last Admin: 01/23/18 08:46 Dose: 10 mg Magnesium Oxide (Mag-Ox) 400 mg PO BID [facility] Last Admin: 01/22/18 17:35 Dose: 400 mg Ondansetron HCl (Zofran Inj) 4 mg IVP DAILY@ONCE PRN PRN Reason: Nausea/Vomiting Last Admin: 01/20/18 22:52 Dose: 4 mg Polyethylene Glycol (Miralax) 17 gm PO DAILY PRN PRN Reason: Constipation Quetiapine Fumarate (Seroquel) 25 mg PO DAILY [facility] Last Admin: 01/22/18 10:12 Dose: 25 mg Rosuvastatin Calcium (Crestor) 40 mg PO HS [facility] Last Admin: 01/22/18 21:46 Dose: 40 mg Saccharomyces Boulardii (Florastor) 250 mg PO BID [facility] Last Admin: 01/22/18 17:34 Dose: 250 mg Tetrahydrozoline HCl/Zinc Sulfate (Visine 0.05% Opht Soln) 2 ml OD Q4H PRN PRN Reason: itchy eyes Last Admin: 01/23/18 09:14 Dose: 1 drop Zinc Sulfate (Zinc Sulfate 220 Mg Cap) 220 mg PO DAILY [facility] Last Admin: 01/22/18 10:13 Dose: 220 mg - Labs Labs: 01/19/18 07:12 01/19/18 07:12 PT 12.2 SECONDS (9.7-12.2) 01/04/18 11:43 INR 1.1 01/04/18 11:43 APTT 26 SECONDS (21-34) 01/04/18 11:43 - Additional Findings Additional findings: - Constitutional Appears: Non-toxic, No Acute Distress - Head Exam Head Exam: ATRAUMATIC, NORMAL INSPECTION, NORMOCEPHALIC - Eye Exam Eye Exam: PERRL (sluggish response on the left). EOMI - ENT Exam ENT Exam: Mucous Membranes Moist - Respiratory Exam Respiratory Exam: Clear to Ausculation Bilateral, NORMAL BREATHING PATTERN - Cardiovascular Exam Cardiovascular Exam: RRR, +S1, +S2 - GI/Abdominal Exam GI & Abdominal Exam: Tender (mild epigastric) Soft, Normal Bowel Sounds. absent : Distended - Extremities Exam Extremities Exam: absent: Calf Tenderness, Pedal Edema - Neurological Exam Neurological Exam: Alert, Awake. absent: CN II-XII Intact (left facial droop) Neuro motor strength exam: Left Upper Extremity: 0, Right Upper Extremity: 4, Left Lower Extremity: 0, Right Lower Extremity: 4 - Psychiatric Exam Psychiatric exam: Normal Affect, Normal Mood - Skin Skin Exam: Dry, Intact, Normal Color, Warm Assessment and Plan - Assessment and Plan (Free Text) Plan: Disposition: Patient needs acute rehab at discharge, however she has no insurance. Will continue to work with case management for discharge plans. Per PT, patient can not use a wheelchair because she cannot transfer from bed to chair without max assistance. No changes at this time. Acute CVA affecting the right parietal/temporal area. * Dr. Castillo (neuro) consulted, help appreciated * Pureed/dysphagia diet * Head of bed elevation * PT/OT Imaging: * 01/[address]: Large hypodensity at the right brain suggestive of acute right MCA territory infarction. Suspicious for right dense MCA sign. If clinically warranted CTA of the head is suggested to evaluate for right MCA occlusion. * 01/04 CTA head and neck: Focal moderate stenosis approximately 75-80 percent noted at the origin of the right internal carotid artery with possible soft plaque. Mild approximately 55 percent stenosis noted at the origin of the left internal carotid artery. Diffuse atherosclerotic disease and calcification noted at the distal internal carotid arteries bilaterally with foci of mild stenosis noted at the supraclinoid portion of the left internal carotid artery. Diffuse approximately 50 percent stenosis of M1 segment of the right middle cerebral artery. Sharp cut off at the M1 bifurcation of the right middle cerebral artery noted. Occlusion of the anterior temporal M2 segment of the right middle cerebral artery at its origin. * 01/[address]: Acute infarct in the right frontal, parietal and temporal lobes. No acute hemorrhage. Midline shift to the left. Prior images have been requested for direct comparison. Comparison is made to prior report. * 01/04 Echo: Normal study with EF 65-70% * 01/[address]: Large right MCA and LAURI territory infarct changes which involve a large portion of the right cerebral hemisphere. The infarct exerts considerable mass effect with overlying sulcal effacement and compressive effects on the right lateral ventricle particularly the right temporal horn with mild [id number] midline shift. No evidence of acute intracranial hemorrhage. Mild underlying chronic white matter ischemic changes seen left cerebral hemisphere as well. No obstructive hydrocephalus. * 01/05 MRI Brain: Acute infarct changes involving a good portion of the right cerebral hemisphere (distal branches of the right middle cerebral artery and anterior cerebral nor arteries). Questionable early hemorrhagic conversion changes right basal ganglia evidenced by foci of dark T2 signal in these locations on gradient echo sequence with isointense T1 signal. Persistent mass effect with mild midline shift. HEMORRHAGE: Questionable early hemorrhagic conversion changes right basal ganglia evidenced by foci of dark T2 signal in these locations on gradient echo sequence with isointense T1 signal * 01/05 Lower extremity US: negative for DVT * 01/[address]: Stable large right renal infarcted involving the right anterior middle cerebral artery territories as discussed above with stable mass effect effacing the sulci of the right cerebral hemisphere in causing a limited leftward some fall seen shift of 3-4 mm once again. No interval intracranial hemorrhage or expansion of the infarcted territory appreciated. Limited age- related neuro degenerative change reiterated at the left cerebral hemisphere. * 01/[address]: Acute/ subacute right frontotemporoparietal infarct. This involves both the LAURI and MCA territory. No hemorrhage. 2-3 mm midline shift towards the left. No significant change from prior examination. * 01/[address]: Expected changes status post right frontotemporoparietal infarct now with cortical laminar necrosis. No hemorrhage. Minimal midline shift. Meds: * Norvasc 10 mg QD * Lisinopril 5 mg QD * ASA 81 mg QD * Plavix 75 mg QD * discontinued Valproate 500 mg IV Q12h due to elevated liver enzymes * Seroquel 25 mg QD * Fluoxetine 20 mg QD * Zinc 220 mg QD Suprapubic Abdominal Pain * Likely constipation * UA: +1 Leuk esterase, * Urine culture * CT abdomen and pelvis without contrast: 1. Constipation with fecal stasis in the sigmoid colon and rectum. No evidence of bowel obstruction. 2. No acute abdominal or pelvic abnormality. * On colace BID * gave 1 dose of miralax today - will advance if needed * Will check Post void residual Vaginal yeast infection * Diflucan 200 mg PO once * Florastor 250 PO BID Seasonal Allergies * Claritin PRN * Visine PRN * Mucinex x1 dose on 01/22 Heavy alcohol use * Counseled on cessation Hyperlipidemia * Cholesterol 210, Triglycerides 248, LDL 92, HDL 81 * Crestor 40 mg HS Prophylaxis * Pepcid 20 mg BID * SCDs * Claritin PRN allergy symptoms <Vitaliy Villarreal H - Last Filed: 01/23/18 11:29> Objective - Vital Signs/Intake and Output Vital Signs (last 24 hours): Temp Pulse Resp BP Pulse Ox 98.2 F 93 H 20 125/88 99 01/23/18 07:00 01/23/18 07:00 01/23/18 07:00 01/23/18 07:00 01/23/18 07:00 Intake and Output: 01/23/18 01/23/18 06:59 18:59 Intake Total 800 Output Total 1050 Balance -250 - Medications Medications: Current Medications Acetaminophen (Tylenol 325mg Tab) 975 mg PO Q6 PRN PRN Reason: Pain, Mild (1-3) Last Admin: 01/21/18 23:52 Dose: 975 mg Amlodipine Besylate (Norvasc) 10 mg PO DAILY [facility], [facility] Last Admin: 01/23/18 11:01 Dose: 10 mg Ascorbic Acid (Vitamin C 500 Mg Tab) 500 mg PO DAILY [facility] Last Admin: 01/23/18 11:01 Dose: 500 mg Aspirin (Aspirin Chewable) 81 mg NG DAILY [facility] Last Admin: 01/23/18 11:02 Dose: 81 mg Clopidogrel Bisulfate (Plavix) 75 mg NG DAILY [facility] Last Admin: 01/23/18 11:00 Dose: 75 mg Docusate Sodium (Colace) 100 mg PO BID [facility] Last Admin: 01/23/18 11:01 Dose: 100 mg Famotidine (Pepcid) 20 mg PO BID [facility] Last Admin: 01/23/18 11:00 Dose: 20 mg Fluoxetine HCl (Prozac) 20 mg PO DAILY [facility]1983 Stop: 02/07/18 18:14 Last Admin: 01/23/18 11:01 Dose: 20 mg Folic Acid (Folic Acid) 1 mg PO DAILY [facility] Last Admin: 01/23/18 11:01 Dose: 1 mg Lisinopril (Zestril) 5 mg PO DAILY [facility] Last Admin: 01/23/18 11:01 Dose: 5 mg Loratadine (Claritin) 10 mg PO DAILY PRN PRN Reason: Allergy symptoms Last Admin: 01/23/18 08:46 Dose: 10 mg Magnesium Oxide (Mag-Ox) 400 mg PO BID [facility] Last Admin: 01/23/18 11:02 Dose: 400 mg Ondansetron HCl (Zofran Inj) 4 mg IVP DAILY@ONCE PRN PRN Reason: Nausea/Vomiting Last Admin: 01/20/18 22:52 Dose: 4 mg Polyethylene Glycol (Miralax) 17 gm PO DAILY PRN PRN Reason: Constipation Quetiapine Fumarate (Seroquel) 25 mg PO DAILY [facility] Last Admin: 01/23/18 11:02 Dose: 25 mg Rosuvastatin Calcium (Crestor) 40 mg PO HS [facility] Last Admin: 01/22/18 21:46 Dose: 40 mg Saccharomyces Boulardii (Florastor) 250 mg PO BID [facility] Last Admin: 01/23/18 11:01 Dose: 250 mg Tetrahydrozoline HCl/Zinc Sulfate (Visine 0.05% Opht Soln) 2 ml OD Q4H PRN PRN Reason: itchy eyes Last Admin: 01/23/18 09:14 Dose: 1 drop Zinc Sulfate (Zinc Sulfate 220 Mg Cap) 220 mg PO DAILY [facility] Last Admin: 01/23/18 11:03 Dose: 220 mg - Labs Labs: 01/19/18 07:12 01/19/18 07:12 PT 12.2 SECONDS (9.7-12.2) 01/04/18 11:43 INR 1.1 01/04/18 11:43 APTT 26 SECONDS (21-34) 01/04/18 11:43 Attending/Attestation - Attestation I have personally seen and examined this patient.: Yes I have fully participated in the care of the patient.: Yes I have reviewed all pertinent clinical information, including history, physical exam and plan: Yes Notes (Text): 01/23/18 11:26 Medical attending: Patient was seen and examined by me. Agree with the above by the resident. We saw the patient together Patient had CT of abd and pelvis which did not show any acute process - it did note she has stool retention. We will try medication to help with the constipation. Otherwise patient continues with PT and hopefully for Medicaid thank you Vitaliy Villarreal
[2018-01-23] MEDS: Saccharomyces Boulardi 250 mg Cap PO SCH ×2 (11:01→18:00)
[2018-01-23] MEDS: Magnesium Oxide 400 mg Tab UD PO SCH ×2 (11:02→18:00)
[2018-01-23] MEDS ORDERED: Bisacodyl 5mg EC Tab PO ONE (22:15)
--- NOTE | 2018-01-24 00:37 | CP.PCM.PN ---
<JoseGuero ruiz - Last Filed: 01/24/18 00:34> Subjective - Date & Time of Evaluation Date of Evaluation: 01/24/18 Time of Evaluation: 00:34 - Subjective Subjective: Patient seen and examined at bedside States she has some belly pain that she attributes to her constipation Has a headache she rates as a 3/10 and describes as throbbing on the R. side States PT has come to see her to exercise her left side. She as well admits to doing daily exercises Objective - Vital Signs/Intake and Output Vital Signs (last 24 hours): Temp Pulse Resp BP Pulse Ox 98.2 F 84 18 111/71 98 01/23/18 16:00 01/23/18 16:00 01/23/18 16:00 01/23/18 16:00 01/23/18 16:00 Intake and Output: 01/23/18 01/24/18 18:59 06:59 Intake Total 600 Balance 600 - Medications Medications: Current Medications Acetaminophen (Tylenol 325mg Tab) 975 mg PO Q6 PRN PRN Reason: Pain, Mild (1-3) Last Admin: 01/23/18 22:29 Dose: 975 mg Amlodipine Besylate (Norvasc) 10 mg PO DAILY [facility] Last Admin: 01/23/18 11:01 Dose: 10 mg Ascorbic Acid (Vitamin C 500 Mg Tab) 500 mg PO DAILY [facility] Last Admin: 01/23/18 11:01 Dose: 500 mg Aspirin (Aspirin Chewable) 81 mg NG DAILY [facility] Last Admin: 01/23/18 11:02 Dose: 81 mg Clopidogrel Bisulfate (Plavix) 75 mg NG DAILY [facility] Last Admin: 01/23/18 11:00 Dose: 75 mg Docusate Sodium (Colace) 100 mg PO BID [facility] Last Admin: 01/23/18 18:00 Dose: 100 mg Famotidine (Pepcid) 20 mg PO BID [facility] Last Admin: 01/23/18 18:00 Dose: 20 mg Fluoxetine HCl (Prozac) 20 mg PO DAILY [facility] Stop: 02/07/18 18:14 Last Admin: 01/23/18 11:01 Dose: 20 mg Folic Acid (Folic Acid) 1 mg PO DAILY [facility] Last Admin: 01/23/18 11:01 Dose: 1 mg Lisinopril (Zestril) 5 mg PO DAILY [facility] Last Admin: 01/23/18 11:01 Dose: 5 mg Loratadine (Claritin) 10 mg PO DAILY PRN PRN Reason: Allergy symptoms Last Admin: 01/23/18 08:46 Dose: 10 mg Magnesium Oxide (Mag-Ox) 400 mg PO BID [facility] Last Admin: 01/23/18 18:00 Dose: 400 mg Ondansetron HCl (Zofran Inj) 4 mg IVP DAILY@ONCE PRN PRN Reason: Nausea/Vomiting Last Admin: 01/20/18 22:52 Dose: 4 mg Polyethylene Glycol (Miralax) 17 gm PO DAILY PRN PRN Reason: Constipation Quetiapine Fumarate (Seroquel) 25 mg PO DAILY [facility] Last Admin: 01/23/18 11:02 Dose: 25 mg Rosuvastatin Calcium (Crestor) 40 mg PO HS [facility] Last Admin: 01/23/18 22:29 Dose: 40 mg Saccharomyces Boulardii (Florastor) 250 mg PO BID [facility] Last Admin: 01/23/18 18:00 Dose: 250 mg Tetrahydrozoline HCl/Zinc Sulfate (Visine 0.05% Opht Soln) 2 ml OD Q4H PRN PRN Reason: itchy eyes Last Admin: 01/23/18 09:14 Dose: 1 drop Zinc Sulfate (Zinc Sulfate 220 Mg Cap) 220 mg PO DAILY [facility] Last Admin: 01/23/18 11:03 Dose: 220 mg - Labs Labs: 01/19/18 07:12 01/19/18 07:12 PT 12.2 SECONDS (9.7-12.2) 01/04/18 11:43 INR 1.1 01/04/18 11:43 APTT 26 SECONDS (21-34) 01/04/18 11:43 - Additional Findings Additional findings: - Constitutional Appears: Non-toxic, No Acute Distress - Head Exam Head Exam: ATRAUMATIC, NORMAL INSPECTION, NORMOCEPHALIC - Eye Exam Eye Exam: PERRL (sluggish response on the left). EOMI - ENT Exam ENT Exam: Mucous Membranes Moist - Respiratory Exam Respiratory Exam: Clear to Ausculation Bilateral, NORMAL BREATHING PATTERN - Cardiovascular Exam Cardiovascular Exam: RRR, +S1, +S2 - GI/Abdominal Exam GI & Abdominal Exam: Tender (mild epigastric) Soft, Normal Bowel Sounds. absent : Distended - Extremities Exam Extremities Exam: absent: Calf Tenderness, Pedal Edema - Neurological Exam Neurological Exam: Alert, Awake. absent: CN II-XII Intact (left facial droop) Neuro motor strength exam: Left Upper Extremity: 0, Right Upper Extremity: 4, Left Lower Extremity: 0, Right Lower Extremity: 4 - Psychiatric Exam Psychiatric exam: Normal Affect, Normal Mood - Skin Skin Exam: Dry, Intact, Normal Color, Warm Assessment and Plan - Assessment and Plan (Free Text) Assessment: Disposition: Patient needs acute rehab at discharge, however she has no insurance. Will continue to work with case management for discharge plans. Per PT, patient can not use a wheelchair because she cannot transfer from bed to chair without max assistance. No changes at this time. Acute CVA affecting the right parietal/temporal area. * Dr. Castillo (neuro) consulted, help appreciated * Pureed/dysphagia diet * Head of bed elevation * PT/OT Imaging: * 01/[address]: Large hypodensity at the right brain suggestive of acute right MCA territory infarction. Suspicious for right dense MCA sign. If clinically warranted CTA of the head is suggested to evaluate for right MCA occlusion. * 01/04 CTA head and neck: Focal moderate stenosis approximately 75-80 percent noted at the origin of the right internal carotid artery with possible soft plaque. Mild approximately 55 percent stenosis noted at the origin of the left internal carotid artery. Diffuse atherosclerotic disease and calcification noted at the distal internal carotid arteries bilaterally with foci of mild stenosis noted at the supraclinoid portion of the left internal carotid artery. Diffuse approximately 50 percent stenosis of M1 segment of the right middle cerebral artery. Sharp cut off at the M1 bifurcation of the right middle cerebral artery noted. Occlusion of the anterior temporal M2 segment of the right middle cerebral artery at its origin. * 01/[address]: Acute infarct in the right frontal, parietal and temporal lobes. No acute hemorrhage. Midline shift to the left. Prior images have been requested for direct comparison. Comparison is made to prior report. * 01/04 Echo: Normal study with EF 65-70% * 01/[address]: Large right MCA and LAURI territory infarct changes which involve a large portion of the right cerebral hemisphere. The infarct exerts considerable mass effect with overlying sulcal effacement and compressive effects on the right lateral ventricle particularly the right temporal horn with mild [id number] midline shift. No evidence of acute intracranial hemorrhage. Mild underlying chronic white matter ischemic changes seen left cerebral hemisphere as well. No obstructive hydrocephalus. * 01/05 MRI Brain: Acute infarct changes involving a good portion of the right cerebral hemisphere (distal branches of the right middle cerebral artery and anterior cerebral nor arteries). Questionable early hemorrhagic conversion changes right basal ganglia evidenced by foci of dark T2 signal in these locations on gradient echo sequence with isointense T1 signal. Persistent mass effect with mild midline shift. HEMORRHAGE: Questionable early hemorrhagic conversion changes right basal ganglia evidenced by foci of dark T2 signal in these locations on gradient echo sequence with isointense T1 signal * 01/05 Lower extremity US: negative for DVT * 01/[address]: Stable large right renal infarcted involving the right anterior middle cerebral artery territories as discussed above with stable mass effect effacing the sulci of the right cerebral hemisphere in causing a limited leftward some fall seen shift of 3-4 mm once again. No interval intracranial hemorrhage or expansion of the infarcted territory appreciated. Limited age- related neuro degenerative change reiterated at the left cerebral hemisphere. * 01/[address]: Acute/ subacute right frontotemporoparietal infarct. This involves both the LAURI and MCA territory. No hemorrhage. 2-3 mm midline shift towards the left. No significant change from prior examination. * 01/[address]: Expected changes status post right frontotemporoparietal infarct now with cortical laminar necrosis. No hemorrhage. Minimal midline shift. Meds: * Norvasc 10 mg QD * Lisinopril 5 mg QD * ASA 81 mg QD * Plavix 75 mg QD * discontinued Valproate 500 mg IV Q12h due to elevated liver enzymes * Seroquel 25 mg QD * Fluoxetine 20 mg QD * Zinc 220 mg QD Suprapubic Abdominal Pain * Likely constipation * UA: +1 Leuk esterase, * Urine culture * CT abdomen and pelvis without contrast: 1. Constipation with fecal stasis in the sigmoid colon and rectum. No evidence of bowel obstruction. 2. No acute abdominal or pelvic abnormality. * On colace BID * gave 1 dose of miralax today - will advance if needed * Will check Post void residual Vaginal yeast infection * Diflucan 200 mg PO once * Florastor 250 PO BID Seasonal Allergies * Claritin PRN * Visine PRN * Mucinex x1 dose on 01/22 Heavy alcohol use * Counseled on cessation Hyperlipidemia * Cholesterol 210, Triglycerides 248, LDL 92, HDL 81 * Crestor 40 mg HS Prophylaxis * Pepcid 20 mg BID * SCDs * Claritin PRN allergy symptoms <Vitaliy Villarreal H - Last Filed: 01/24/18 08:44> Objective - Vital Signs/Intake and Output Vital Signs (last 24 hours): Temp Pulse Resp BP Pulse Ox 97.8 F 71 20 124/84 99 01/24/18 08:25 01/24/18 08:25 01/24/18 08:25 01/24/18 08:25 01/24/18 08:25 Intake and Output: 01/24/18 01/24/18 06:59 18:59 Intake Total 600 Balance 600 - Medications Medications: Current Medications Acetaminophen (Tylenol 325mg Tab) 975 mg PO Q6 PRN PRN Reason: Pain, Mild (1-3) Last Admin: 01/23/18 22:29 Dose: 975 mg Amlodipine Besylate (Norvasc) 10 mg PO DAILY [facility] Last Admin: 01/23/18 11:01 Dose: 10 mg Ascorbic Acid (Vitamin C 500 Mg Tab) 500 mg PO DAILY [facility] Last Admin: 01/23/18 11:01 Dose: 500 mg Aspirin (Aspirin Chewable) 81 mg NG DAILY [facility] Last Admin: 01/23/18 11:02 Dose: 81 mg Clopidogrel Bisulfate (Plavix) 75 mg NG DAILY [facility] Last Admin: 01/23/18 11:00 Dose: 75 mg Docusate Sodium (Colace) 100 mg PO BID [facility] Last Admin: 01/23/18 18:00 Dose: 100 mg Famotidine (Pepcid) 20 mg PO BID [facility] Last Admin: 01/23/18 18:00 Dose: 20 mg Fluoxetine HCl (Prozac) 20 mg PO DAILY [facility] Stop: 02/07/18 18:14 Last Admin: 01/23/18 11:01 Dose: 20 mg Folic Acid (Folic Acid) 1 mg PO DAILY [facility] Last Admin: 01/23/18 11:01 Dose: 1 mg Lisinopril (Zestril) 5 mg PO DAILY [facility] Last Admin: 01/23/18 11:01 Dose: 5 mg Loratadine (Claritin) 10 mg PO DAILY PRN PRN Reason: Allergy symptoms Last Admin: 01/23/18 08:46 Dose: 10 mg Magnesium Oxide (Mag-Ox) 400 mg PO BID [facility] Last Admin: 01/23/18 18:00 Dose: 400 mg Ondansetron HCl (Zofran Inj) 4 mg IVP DAILY@ONCE PRN PRN Reason: Nausea/Vomiting Last Admin: 01/20/18 22:52 Dose: 4 mg Polyethylene Glycol (Miralax) 17 gm PO DAILY PRN PRN Reason: Constipation Quetiapine Fumarate (Seroquel) 25 mg PO DAILY [facility] Last Admin: 01/23/18 11:02 Dose: 25 mg Rosuvastatin Calcium (Crestor) 40 mg PO HS [facility] Last Admin: 01/23/18 22:29 Dose: 40 mg Saccharomyces Boulardii (Florastor) 250 mg PO BID [facility] Last Admin: 01/23/18 18:00 Dose: 250 mg Tetrahydrozoline HCl/Zinc Sulfate (Visine 0.05% Opht Soln) 2 ml OD Q4H PRN PRN Reason: itchy eyes Last Admin: 01/23/18 09:14 Dose: 1 drop Zinc Sulfate (Zinc Sulfate 220 Mg Cap) 220 mg PO DAILY [facility] Last Admin: 01/23/18 11:03 Dose: 220 mg - Labs Labs: 01/19/18 07:12 01/19/18 07:12 PT 12.2 SECONDS (9.7-12.2) 01/04/18 11:43 INR 1.1 01/04/18 11:43 APTT 26 SECONDS (21-34) 01/04/18 11:43 Attending/Attestation - Attestation I have personally seen and examined this patient.: Yes I have fully participated in the care of the patient.: Yes I have reviewed all pertinent clinical information, including history, physical exam and plan: Yes Notes (Text): 01/24/18 08:43 Medical attending: Patient was seen and examined by me. Agree with the above note by the resident Patient refused to have the enema last night - today this morning when I spoke to her she has not had a BM yet. Still reporting the fullness sensation over abdomen. Explained to her that the recent CT is suggesting a lot of stool retention. After discussion she said she would be willing to try the enema thank you Vitaliy Villarreal
[2018-01-24] MEDS: Saccharomyces Boulardi 250 mg Cap PO SCH ×2 (09:54→17:35)
[2018-01-24] MEDS: Magnesium Oxide 400 mg Tab UD PO SCH ×2 (09:54→17:35)
[2018-01-24] MEDS: Ciprofloxacin 400mg/200ml D5W 400 MG/200 ML BAG IVPB SCH (21:32)
--- NOTE | 2018-01-25 03:43 | CP.PCM.PN ---
<Guero Ziegler - Last Filed: 01/25/18 03:41> Subjective - Date & Time of Evaluation Date of Evaluation: 01/25/18 Time of Evaluation: 03:41 - Subjective Subjective: patient seen and examined at bedside resting comfortably in bed states she is yet to have a BM. Willing to try enema at this time Denying any urinary complaints to me. Objective - Vital Signs/Intake and Output Vital Signs (last 24 hours): Temp Pulse Resp BP Pulse Ox 98 F 89 20 113/73 98 01/24/18 23:40 01/24/18 23:40 01/24/18 23:40 01/24/18 23:40 01/24/18 23:40 Intake and Output: 01/24/18 01/25/18 18:59 06:59 Intake Total 400 800 Output Total 300 400 Balance 100 400 - Medications Medications: Current Medications Acetaminophen (Tylenol 325mg Tab) 975 mg PO Q6 PRN PRN Reason: Pain, Mild (1-3) Last Admin: 01/24/18 17:37 Dose: 975 mg Amlodipine Besylate (Norvasc) 10 mg PO DAILY [facility] Last Admin: 01/24/18 09:54 Dose: 10 mg Ascorbic Acid (Vitamin C 500 Mg Tab) 500 mg PO DAILY [facility] Last Admin: 01/24/18 09:55 Dose: 500 mg Aspirin (Aspirin Chewable) 81 mg NG DAILY [facility] Last Admin: 01/24/18 09:54 Dose: 81 mg Clopidogrel Bisulfate (Plavix) 75 mg NG DAILY [facility] Last Admin: 01/24/18 09:55 Dose: 75 mg Docusate Sodium (Colace) 100 mg PO BID [facility] Last Admin: 01/24/18 17:35 Dose: 100 mg Famotidine (Pepcid) 20 mg PO BID [facility] Last Admin: 01/24/18 17:35 Dose: 20 mg Fluoxetine HCl (Prozac) 20 mg PO DAILY [facility] Stop: 02/07/18 18:14 Last Admin: 01/24/18 09:54 Dose: 20 mg Folic Acid (Folic Acid) 1 mg PO DAILY [facility] Last Admin: 01/24/18 09:55 Dose: 1 mg Ciprofloxacin (Cipro 400mg/200ml Dsw) 400 mg in 200 mls @ 133 mls/hr IVPB Q12H [facility] PRN Reason: Protocol Stop: 01/31/18 20:01 Last Admin: 01/24/18 21:32 Dose: 133 mls/hr Lisinopril (Zestril) 5 mg PO DAILY [facility] Last Admin: 01/24/18 09:54 Dose: 5 mg Loratadine (Claritin) 10 mg PO DAILY PRN PRN Reason: Allergy symptoms Last Admin: 01/24/18 09:55 Dose: 10 mg Magnesium Oxide (Mag-Ox) 400 mg PO BID [facility] Last Admin: 01/24/18 17:35 Dose: 400 mg Ondansetron HCl (Zofran Inj) 4 mg IVP DAILY@ONCE PRN PRN Reason: Nausea/Vomiting Last Admin: 01/20/18 22:52 Dose: 4 mg Polyethylene Glycol (Miralax) 17 gm PO DAILY PRN PRN Reason: Constipation Quetiapine Fumarate (Seroquel) 25 mg PO DAILY [facility] Last Admin: 01/24/18 09:54 Dose: 25 mg Rosuvastatin Calcium (Crestor) 40 mg PO HS [facility] Last Admin: 01/24/18 21:32 Dose: 40 mg Saccharomyces Boulardii (Florastor) 250 mg PO BID [facility] Last Admin: 01/24/18 17:35 Dose: 250 mg Tetrahydrozoline HCl/Zinc Sulfate (Visine 0.05% Opht Soln) 2 ml OD Q4H PRN PRN Reason: itchy eyes Last Admin: 01/23/18 09:14 Dose: 1 drop Zinc Sulfate (Zinc Sulfate 220 Mg Cap) 220 mg PO DAILY [facility] Last Admin: 01/24/18 10:01 Dose: 220 mg - Labs Labs: 01/19/18 07:12 01/19/18 07:12 PT 12.2 SECONDS (9.7-12.2) 01/04/18 11:43 INR 1.1 01/04/18 11:43 APTT 26 SECONDS (21-34) 01/04/18 11:43 - Additional Findings Additional findings: - Constitutional Appears: Non-toxic, No Acute Distress - Head Exam Head Exam: ATRAUMATIC, NORMAL INSPECTION, NORMOCEPHALIC - Eye Exam Eye Exam: PERRL (sluggish response on the left). EOMI - ENT Exam ENT Exam: Mucous Membranes Moist - Respiratory Exam Respiratory Exam: Clear to Ausculation Bilateral, NORMAL BREATHING PATTERN - Cardiovascular Exam Cardiovascular Exam: RRR, +S1, +S2 - GI/Abdominal Exam GI & Abdominal Exam: Tender (mild epigastric) Soft, Normal Bowel Sounds. absent : Distended - Extremities Exam Extremities Exam: absent: Calf Tenderness, Pedal Edema - Neurological Exam Neurological Exam: Alert, Awake. absent: CN II-XII Intact (left facial droop) Neuro motor strength exam: Left Upper Extremity: 0, Right Upper Extremity: 4, Left Lower Extremity: 0, Right Lower Extremity: 4 - Psychiatric Exam Psychiatric exam: Normal Affect, Normal Mood - Skin Skin Exam: Dry, Intact, Normal Color, Warm <Villarreal,Peter H - Last Filed: 01/25/18 08:55> Objective - Vital Signs/Intake and Output Vital Signs (last 24 hours): Temp Pulse Resp BP Pulse Ox 98 F 89 20 113/73 98 01/24/18 23:40 01/24/18 23:40 01/24/18 23:40 01/24/18 23:40 01/24/18 23:40 Intake and Output: 01/25/18 01/25/18 06:59 18:59 Intake Total 800 Output Total 400 Balance 400 - Medications Medications: Current Medications Acetaminophen (Tylenol 325mg Tab) 975 mg PO Q6 PRN PRN Reason: Pain, Mild (1-3) Last Admin: 01/24/18 17:37 Dose: 975 mg Amlodipine Besylate (Norvasc) 10 mg PO DAILY [facility] Last Admin: 01/24/18 09:54 Dose: 10 mg Ascorbic Acid (Vitamin C 500 Mg Tab) 500 mg PO DAILY [facility] Last Admin: 01/24/18 09:55 Dose: 500 mg Aspirin (Aspirin Chewable) 81 mg NG DAILY [facility] Last Admin: 01/24/18 09:54 Dose: 81 mg Clopidogrel Bisulfate (Plavix) 75 mg NG DAILY [facility] Last Admin: 01/24/18 09:55 Dose: 75 mg Docusate Sodium (Colace) 100 mg PO BID [facility] Last Admin: 01/24/18 17:35 Dose: 100 mg Famotidine (Pepcid) 20 mg PO BID [facility] Last Admin: 01/24/18 17:35 Dose: 20 mg Fluoxetine HCl (Prozac) 20 mg PO DAILY [facility] Stop: 02/07/18 18:14 Last Admin: 01/24/18 09:54 Dose: 20 mg Folic Acid (Folic Acid) 1 mg PO DAILY [facility] Last Admin: 01/24/18 09:55 Dose: 1 mg Ciprofloxacin (Cipro 400mg/200ml Dsw) 400 mg in 200 mls @ 133 mls/hr IVPB Q12H [facility] PRN Reason: Protocol Stop: 01/31/18 20:01 Last Admin: 01/25/18 07:50 Dose: 133 mls/hr Lisinopril (Zestril) 5 mg PO DAILY [facility] Last Admin: 01/24/18 09:54 Dose: 5 mg Loratadine (Claritin) 10 mg PO DAILY PRN PRN Reason: Allergy symptoms Last Admin: 01/24/18 09:55 Dose: 10 mg Magnesium Oxide (Mag-Ox) 400 mg PO BID [facility] Last Admin: 01/24/18 17:35 Dose: 400 mg Ondansetron HCl (Zofran Inj) 4 mg IVP DAILY@ONCE PRN PRN Reason: Nausea/Vomiting Last Admin: 01/20/18 22:52 Dose: 4 mg Polyethylene Glycol (Miralax) 17 gm PO DAILY PRN PRN Reason: Constipation Quetiapine Fumarate (Seroquel) 25 mg PO DAILY [facility] Last Admin: 01/24/18 09:54 Dose: 25 mg Rosuvastatin Calcium (Crestor) 40 mg PO HS [facility] Last Admin: 01/24/18 21:32 Dose: 40 mg Saccharomyces Boulardii (Florastor) 250 mg PO BID [facility] Last Admin: 01/24/18 17:35 Dose: 250 mg Tetrahydrozoline HCl/Zinc Sulfate (Visine 0.05% Opht Soln) 2 ml OD Q4H PRN PRN Reason: itchy eyes Last Admin: 01/23/18 09:14 Dose: 1 drop Zinc Sulfate (Zinc Sulfate 220 Mg Cap) 220 mg PO DAILY [facility] Last Admin: 01/24/18 10:01 Dose: 220 mg - Labs Labs: 01/19/18 07:12 01/19/18 07:12 PT 12.2 SECONDS (9.7-12.2) 01/04/18 11:43 INR 1.1 01/04/18 11:43 APTT 26 SECONDS (21-34) 01/04/18 11:43 Attending/Attestation - Attestation I have personally seen and examined this patient.: Yes I have fully participated in the care of the patient.: Yes I have reviewed all pertinent clinical information, including history, physical exam and plan: Yes Notes (Text): Medical attending: Patient was seen and examined by me. Agree with the above note by the resident. She reports a lot of relief from the enema and had a large BM. She no longer has the right lower quadrant pain fullness. Today this morning reporting soreness of left thigh area. Tylenol does not help. Will try Toradol x 1 thank you Vitaliy Villarreal
[2018-01-25] MEDS: Ciprofloxacin 400mg/200ml D5W 400 MG/200 ML BAG IVPB SCH ×2 (07:50→21:08)
[2018-01-25] MEDS: Saccharomyces Boulardi 250 mg Cap PO SCH ×2 (09:22→17:00)
[2018-01-25] MEDS: Magnesium Oxide 400 mg Tab UD PO SCH ×2 (09:23→17:00)
--- NOTE | 2018-01-26 06:46 | CP.PCM.PN ---
Subjective - Date & Time of Evaluation Date of Evaluation: 01/26/18 Time of Evaluation: 06:44 - Subjective Subjective: Ms. Bui is seen and examined at the bedside. She remains alert, but very sleepy. She denies any headache, dizziness, nausea, or vomiting. She is unable to follow simple commands due to state of mind, with left facial droop, left side hemiplegia, and left side neglect. She claims of experiencing leg pain yesterday, whcih she was given pain medication with relief.She has bilateral SCD on her lower extremities.She remains on telesitter for patient safety. There was no untoward events overnight. Objective - Vital Signs/Intake and Output Vital Signs (last 24 hours): Temp Pulse Resp BP Pulse Ox 98.1 F 89 20 114/77 99 01/25/18 23:05 01/25/18 23:05 01/25/18 23:05 01/25/18 23:05 01/25/18 23:05 Intake and Output: 01/25/18 01/26/18 18:59 06:59 Intake Total 500 Output Total 650 1300 Balance -150 -1300 - Medications Medications: Current Medications Acetaminophen (Tylenol 325mg Tab) 975 mg PO Q6 PRN PRN Reason: Pain, Mild (1-3) Last Admin: 01/24/18 17:37 Dose: 975 mg Amlodipine Besylate (Norvasc) 10 mg PO DAILY [facility] Last Admin: 01/25/18 09:23 Dose: 10 mg Ascorbic Acid (Vitamin C 500 Mg Tab) 500 mg PO DAILY [facility] Last Admin: 01/25/18 09:23 Dose: 500 mg Aspirin (Aspirin Chewable) 81 mg NG DAILY [facility] Last Admin: 01/25/18 09:22 Dose: 81 mg Clopidogrel Bisulfate (Plavix) 75 mg NG DAILY [facility] Last Admin: 01/25/18 09:23 Dose: 75 mg Docusate Sodium (Colace) 100 mg PO BID [facility] Last Admin: 01/25/18 17:00 Dose: 100 mg Famotidine (Pepcid) 20 mg PO BID [facility] Last Admin: 01/25/18 17:00 Dose: 20 mg Fluoxetine HCl (Prozac) 20 mg PO DAILY [facility] Stop: 02/07/18 18:14 Last Admin: 01/25/18 09:23 Dose: 20 mg Folic Acid (Folic Acid) 1 mg PO DAILY [facility] Last Admin: 01/25/18 09:23 Dose: 1 mg Ciprofloxacin (Cipro 400mg/200ml Dsw) 400 mg in 200 mls @ 133 mls/hr IVPB Q12H [facility] PRN Reason: Protocol Stop: 01/31/18 20:01 Last Admin: 01/25/18 21:08 Dose: 133 mls/hr Lisinopril (Zestril) 5 mg PO DAILY [facility] Last Admin: 01/25/18 09:22 Dose: 5 mg Loratadine (Claritin) 10 mg PO DAILY PRN PRN Reason: Allergy symptoms Last Admin: 01/25/18 17:00 Dose: 10 mg Magnesium Oxide (Mag-Ox) 400 mg PO BID [facility] Last Admin: 01/25/18 17:00 Dose: 400 mg Ondansetron HCl (Zofran Inj) 4 mg IVP DAILY@ONCE PRN PRN Reason: Nausea/Vomiting Last Admin: 01/20/18 22:52 Dose: 4 mg Polyethylene Glycol (Miralax) 17 gm PO DAILY PRN PRN Reason: Constipation Quetiapine Fumarate (Seroquel) 25 mg PO DAILY [facility] Last Admin: 01/25/18 09:22 Dose: 25 mg Rosuvastatin Calcium (Crestor) 40 mg PO HS [facility] Last Admin: 01/25/18 21:08 Dose: 40 mg Saccharomyces Boulardii (Florastor) 250 mg PO BID [facility] Last Admin: 01/25/18 17:00 Dose: 250 mg Tetrahydrozoline HCl/Zinc Sulfate (Visine 0.05% Opht Soln) 2 ml OD Q4H PRN PRN Reason: itchy eyes Last Admin: 01/23/18 09:14 Dose: 1 drop Zinc Sulfate (Zinc Sulfate 220 Mg Cap) 220 mg PO DAILY [facility] Last Admin: 01/25/18 09:22 Dose: 220 mg - Labs Labs: 01/19/18 07:12 01/19/18 07:12 PT 12.2 SECONDS (9.7-12.2) 01/04/18 11:43 INR 1.1 01/04/18 11:43 APTT 26 SECONDS (21-34) 01/04/18 11:43 - Constitutional Appears: No Acute Distress - Head Exam Head Exam: NORMAL INSPECTION - Neurological Exam Neurological Exam: Alert, Awake, Oriented x3 Neuro motor strength exam: Left Upper Extremity: 0, Right Upper Extremity: 5, Left Lower Extremity: 2/1, Right Lower Extremity: 5 Additional comments: Neurological unchanged from previous examination. Assessment and Plan (1) CVA (cerebral vascular accident) Assessment & Plan: Case discussed with Dr. Castillo, continue all current medical, physical, occupational, and speech therapies. Recommend head of bed elevated, blood pressure and glycemic control.If the patient's mental status decline, please repeat CT scan of the head without contrast. Status: Acute
[2018-01-26 07:31] LABS: BASO % 0.6 % (0.0-2.0); EOS # 0.2 K/uL (0.0-0.7); EOS % 2.5 % (0.0-4.0); HEMOGLOBIN 11.1 g/dL (11.0-16.0); LYMPH # 1.6 K/uL (1.0-4.3); LYMPH % 22.6 % (20.0-40.0); MEAN CELL VOLUME 95.1 fL (81.0-99.0); MEAN CORPUSCULAR HEMOGLOBIN 32.8 pg (27.0-31.0); MEAN CORPUSCULAR HGB CONC 34.5 g/dL (33.0-37.0); MEAN PLATELET VOLUME 8.8 fL (7.2-11.7); MONO # 0.8 K/uL (0.0-0.8); MONO % 11.5 % (0.0-10.0); NEUT # 4.6 K/uL (1.8-7.0); NEUT % 62.8 % (50.0-75.0); NRBC % 0.1 % (0.0-2.0); RBC 3.38 Mil/uL (3.80-5.20); RED CELL DISTRIBUTION WIDTH 14.1 % (11.5-14.5); WHITE BLOOD COUNT 7.3 K/uL (4.8-10.8)
--- NOTE | 2018-01-26 08:13 | CP.PCM.PN ---
<Eileen Anaya - Last Filed: 01/26/18 13:20> Subjective - Date & Time of Evaluation Date of Evaluation: 01/26/18 Time of Evaluation: 07:00 - Subjective Subjective: Medicine Progress Note: Patient was seen and examined at bedside in the AM. Per nurse no events overnight. Patient states she is feeling well and has been practicing some of her facial muscle exercises. Patient continues to have paralysis of LUE and LLE. She denies dizziness, fever, chills, chest pain, SOB, and pain/swelling in the lower extremities. Objective - Vital Signs/Intake and Output Vital Signs (last 24 hours): Temp Pulse Resp BP Pulse Ox 98.3 F 71 20 130/83 100 01/26/18 07:51 01/26/18 07:51 01/26/18 07:51 01/26/18 07:51 01/26/18 07:51 Intake and Output: 01/26/18 01/26/18 06:59 18:59 Output Total 1300 Balance -1300 - Medications Medications: Current Medications Acetaminophen (Tylenol 325mg Tab) 975 mg PO Q6 PRN PRN Reason: Pain, Mild (1-3) Last Admin: 01/24/18 17:37 Dose: 975 mg Amlodipine Besylate (Norvasc) 10 mg PO DAILY [facility] Last Admin: 01/25/18 09:23 Dose: 10 mg Ascorbic Acid (Vitamin C 500 Mg Tab) 500 mg PO DAILY [facility] Last Admin: 01/25/18 09:23 Dose: 500 mg Aspirin (Aspirin Chewable) 81 mg NG DAILY [facility] Last Admin: 01/25/18 09:22 Dose: 81 mg Clopidogrel Bisulfate (Plavix) 75 mg NG DAILY [facility] Last Admin: 01/25/18 09:23 Dose: 75 mg Docusate Sodium (Colace) 100 mg PO BID [facility] Last Admin: 01/25/18 17:00 Dose: 100 mg Famotidine (Pepcid) 20 mg PO BID [facility] Last Admin: 01/25/18 17:00 Dose: 20 mg Fluoxetine HCl (Prozac) 20 mg PO DAILY [facility] Stop: 02/07/18 18:14 Last Admin: 01/25/18 09:23 Dose: 20 mg Folic Acid (Folic Acid) 1 mg PO DAILY [facility] Last Admin: 01/25/18 09:23 Dose: 1 mg Ciprofloxacin (Cipro 400mg/200ml Dsw) 400 mg in 200 mls @ 133 mls/hr IVPB Q12H [facility] PRN Reason: Protocol Stop: 01/31/18 20:01 Last Admin: 01/25/18 21:08 Dose: 133 mls/hr Lisinopril (Zestril) 5 mg PO DAILY [facility] Last Admin: 01/25/18 09:22 Dose: 5 mg Loratadine (Claritin) 10 mg PO DAILY PRN PRN Reason: Allergy symptoms Last Admin: 01/25/18 17:00 Dose: 10 mg Magnesium Oxide (Mag-Ox) 400 mg PO BID [facility] Last Admin: 01/25/18 17:00 Dose: 400 mg Ondansetron HCl (Zofran Inj) 4 mg IVP DAILY@ONCE PRN PRN Reason: Nausea/Vomiting Last Admin: 01/20/18 22:52 Dose: 4 mg Polyethylene Glycol (Miralax) 17 gm PO DAILY PRN PRN Reason: Constipation Quetiapine Fumarate (Seroquel) 25 mg PO DAILY [facility] Last Admin: 01/25/18 09:22 Dose: 25 mg Rosuvastatin Calcium (Crestor) 40 mg PO HS [facility] Last Admin: 01/25/18 21:08 Dose: 40 mg Saccharomyces Boulardii (Florastor) 250 mg PO BID [facility] Last Admin: 01/25/18 17:00 Dose: 250 mg Tetrahydrozoline HCl/Zinc Sulfate (Visine 0.05% Opht Soln) 2 ml OD Q4H PRN PRN Reason: itchy eyes Last Admin: 01/23/18 09:14 Dose: 1 drop Zinc Sulfate (Zinc Sulfate 220 Mg Cap) 220 mg PO DAILY [facility] Last Admin: 01/25/18 09:22 Dose: 220 mg - Labs Labs: 01/26/18 06:58 01/19/18 07:12 PT 12.2 SECONDS (9.7-12.2) 01/04/18 11:43 INR 1.1 01/04/18 11:43 APTT 26 SECONDS (21-34) 01/04/18 11:43 - Constitutional Appears: No Acute Distress - Head Exam Head Exam: ATRAUMATIC, NORMAL INSPECTION - Eye Exam Eye Exam: EOMI, Normal appearance - ENT Exam ENT Exam: Mucous Membranes Moist - Respiratory Exam Respiratory Exam: Clear to Ausculation Bilateral, NORMAL BREATHING PATTERN - Cardiovascular Exam Cardiovascular Exam: REGULAR RHYTHM, +S1, +S2 - GI/Abdominal Exam GI & Abdominal Exam: Soft, Normal Bowel Sounds. absent: Tenderness - Extremities Exam Extremities Exam: absent: Pedal Edema, Tenderness - Neurological Exam Neurological Exam: Alert, Awake, Oriented x3. absent: CN II-XII Intact (left facial droop) Neuro motor strength exam: Left Upper Extremity: 0, Right Upper Extremity: 4, Left Lower Extremity: 0, Right Lower Extremity: 4 - Psychiatric Exam Psychiatric exam: Normal Affect, Normal Mood - Skin Skin Exam: absent: Rash Assessment and Plan - Assessment and Plan (Free Text) Assessment: Disposition: Patient needs acute rehab at discharge, however she has no insurance. Will continue to work with case management for discharge plans. Per PT, patient can not use a wheelchair because she cannot transfer from bed to chair without max assistance. No changes at this time. 1.) Acute CVA affecting the right parietal/temporal area. * Dr. Castillo (neuro) consulted, help appreciated * Pureed/dysphagia diet * Head of bed elevation * PT/OT Imaging: * 01/[address]: Large hypodensity at the right brain suggestive of acute right MCA territory infarction. Suspicious for right dense MCA sign. If clinically warranted CTA of the head is suggested to evaluate for right MCA occlusion. * 01/04 CTA head and neck: Focal moderate stenosis approximately 75-80 percent noted at the origin of the right internal carotid artery with possible soft plaque. Mild approximately 55 percent stenosis noted at the origin of the left internal carotid artery. Diffuse atherosclerotic disease and calcification noted at the distal internal carotid arteries bilaterally with foci of mild stenosis noted at the supraclinoid portion of the left internal carotid artery. Diffuse approximately 50 percent stenosis of M1 segment of the right middle cerebral artery. Sharp cut off at the M1 bifurcation of the right middle cerebral artery noted. Occlusion of the anterior temporal M2 segment of the right middle cerebral artery at its origin. * 01/[address]: Acute infarct in the right frontal, parietal and temporal lobes. No acute hemorrhage. Midline shift to the left. Prior images have been requested for direct comparison. Comparison is made to prior report. * 01/04 Echo: Normal study with EF 65-70% * 01/[address]: Large right MCA and LAURI territory infarct changes which involve a large portion of the right cerebral hemisphere. The infarct exerts considerable mass effect with overlying sulcal effacement and compressive effects on the right lateral ventricle particularly the right temporal horn with mild [id number] midline shift. No evidence of acute intracranial hemorrhage. Mild underlying chronic white matter ischemic changes seen left cerebral hemisphere as well. No obstructive hydrocephalus. * 01/05 MRI Brain: Acute infarct changes involving a good portion of the right cerebral hemisphere (distal branches of the right middle cerebral artery and anterior cerebral nor arteries). Questionable early hemorrhagic conversion changes right basal ganglia evidenced by foci of dark T2 signal in these locations on gradient echo sequence with isointense T1 signal. Persistent mass effect with mild midline shift. HEMORRHAGE: Questionable early hemorrhagic conversion changes right basal ganglia evidenced by foci of dark T2 signal in these locations on gradient echo sequence with isointense T1 signal * 01/05 Lower extremity US: negative for DVT * 01/[address]: Stable large right renal infarcted involving the right anterior middle cerebral artery territories as discussed above with stable mass effect effacing the sulci of the right cerebral hemisphere in causing a limited leftward some fall seen shift of 3-4 mm once again. No interval intracranial hemorrhage or expansion of the infarcted territory appreciated. Limited age- related neuro degenerative change reiterated at the left cerebral hemisphere. * 01/[address]: Acute/ subacute right frontotemporoparietal infarct. This involves both the LAURI and MCA territory. No hemorrhage. 2-3 mm midline shift towards the left. No significant change from prior examination. * 01/[address]: Expected changes status post right frontotemporoparietal infarct now with cortical laminar necrosis. No hemorrhage. Minimal midline shift. Medications: * Norvasc 10 mg QD * Lisinopril 5 mg QD * ASA 81 mg QD * Plavix 75 mg QD * discontinued (01/16/18) Valproate 500 mg IV Q12h due to elevated liver enzymes * Seroquel 25 mg QD * Fluoxetine 20 mg QD * Zinc 220 mg QD 2.) UTI * UA: +1 Leuk esterase * Urine culture: Klebsiella Pneumoniae * Ciprofloxacin 400 mg in 200 mls @ 133 mls/hr IVPB Q12H [facility] * Stop date: 01/31/18 * Florastor 250 PO BID 3.) Constipation - resolved * CT abdomen and pelvis without contrast: 1. Constipation with fecal stasis in the sigmoid colon and rectum. No evidence of bowel obstruction. 2. No acute abdominal or pelvic abnormality. * On colace BID * gave 1 dose of miralax today - will advance if needed 4.) Vaginal yeast infection - resolved * Diflucan 200 mg PO once 5.) Seasonal Allergies * Claritin PRN * Visine PRN * Mucinex x1 dose on 01/22 6.) Heavy alcohol use * Counseled on cessation 7.) Hyperlipidemia * Cholesterol 210, Triglycerides 248, LDL 92, HDL 81 * Crestor 40 mg HS 8.) Prophylaxis * Pepcid 20 mg BID * Florastor 250 PO BID * SCDs * Claritin PRN allergy symptoms Case discussed with Dr. Shlomo Anaya PGY-1 <Lacy Keenan - Last Filed: 01/26/18 13:37> Objective - Vital Signs/Intake and Output Vital Signs (last 24 hours): Temp Pulse Resp BP Pulse Ox 98.3 F 71 20 130/83 100 01/26/18 07:51 01/26/18 07:51 01/26/18 07:51 01/26/18 07:51 01/26/18 07:51 Intake and Output: 01/26/18 01/26/18 06:59 18:59 Output Total 1300 Balance -1300 - Medications Medications: Current Medications Acetaminophen (Tylenol 325mg Tab) 975 mg PO Q6 PRN PRN Reason: Pain, Mild (1-3) Last Admin: 01/24/18 17:37 Dose: 975 mg Amlodipine Besylate (Norvasc) 10 mg PO DAILY [facility] Last Admin: 01/26/18 10:37 Dose: 10 mg Ascorbic Acid (Vitamin C 500 Mg Tab) 500 mg PO DAILY [facility] Last Admin: 01/26/18 10:37 Dose: 500 mg Aspirin (Aspirin Chewable) 81 mg NG DAILY [facility] Last Admin: 01/26/18 10:35 Dose: 81 mg Clopidogrel Bisulfate (Plavix) 75 mg NG DAILY [facility] Last Admin: 01/26/18 10:36 Dose: 75 mg Docusate Sodium (Colace) 100 mg PO BID [facility] Last Admin: 01/26/18 10:37 Dose: 100 mg Famotidine (Pepcid) 20 mg PO BID [facility] Last Admin: 01/26/18 10:36 Dose: 20 mg Fluoxetine HCl (Prozac) 20 mg PO DAILY [facility] Stop: 02/07/18 18:14 Last Admin: 01/26/18 10:37 Dose: 20 mg Folic Acid (Folic Acid) 1 mg PO DAILY [facility] Last Admin: 01/26/18 10:37 Dose: 1 mg Ciprofloxacin (Cipro 400mg/200ml Dsw) 400 mg in 200 mls @ 133 mls/hr IVPB Q12H [facility] PRN Reason: Protocol Stop: 01/31/18 20:01 Last Admin: 01/26/18 08:43 Dose: 133 mls/hr Lisinopril (Zestril) 5 mg PO DAILY [facility] Last Admin: 01/26/18 10:36 Dose: 5 mg Loratadine (Claritin) 10 mg PO DAILY PRN PRN Reason: Allergy symptoms Last Admin: 01/26/18 10:36 Dose: 10 mg Magnesium Oxide (Mag-Ox) 400 mg PO BID [facility] Last Admin: 01/26/18 10:35 Dose: 400 mg Ondansetron HCl (Zofran Inj) 4 mg IVP DAILY@ONCE PRN PRN Reason: Nausea/Vomiting Last Admin: 01/20/18 22:52 Dose: 4 mg Polyethylene Glycol (Miralax) 17 gm PO DAILY PRN PRN Reason: Constipation Quetiapine Fumarate (Seroquel) 25 mg PO DAILY [facility] Last Admin: 01/26/18 10:36 Dose: 25 mg Rosuvastatin Calcium (Crestor) 40 mg PO HS [facility] Last Admin: 01/25/18 21:08 Dose: 40 mg Saccharomyces Boulardii (Florastor) 250 mg PO BID [facility] Last Admin: 01/26/18 10:35 Dose: 250 mg Tetrahydrozoline HCl/Zinc Sulfate (Visine 0.05% Opht Soln) 2 ml OD Q4H PRN PRN Reason: itchy eyes Last Admin: 01/23/18 09:14 Dose: 1 drop Zinc Sulfate (Zinc Sulfate 220 Mg Cap) 220 mg PO DAILY [facility] Last Admin: 01/26/18 10:36 Dose: 220 mg - Labs Labs: 01/26/18 06:58 01/26/18 06:58 PT 12.2 SECONDS (9.7-12.2) 01/04/18 11:43 INR 1.1 01/04/18 11:43 APTT 26 SECONDS (21-34) 01/04/18 11:43 Attending/Attestation - Attestation I have personally seen and examined this patient.: Yes I have fully participated in the care of the patient.: Yes I have reviewed all pertinent clinical information, including history, physical exam and plan: Yes Notes (Text): seen and examined by me no complain,no pain,no constipation On cipro for UIT(starting 01/24/2018 Her sister is applying for medic acid I agree with the documentation of the resident's assessment and the plan.
[2018-01-26 08:17] LABS: ALBUMIN 3.3 g/dL (3.5-5.0); ALT/SGPT 31 U/L (9-52); AST/SGOT 36 U/L (14-36); BLOOD UREA NITROGEN 13 mg/dL (7-17); CALCIUM 9.3 mg/dl (8.6-10.4); GFR AFRICAN-AMERICAN > 60; GFR NON-AFRICAN AMERICAN > 60
[2018-01-26] MEDS: Ciprofloxacin 400mg/200ml D5W 400 MG/200 ML BAG IVPB SCH ×2 (08:43→19:00)
[2018-01-26] MEDS: Saccharomyces Boulardi 250 mg Cap PO SCH ×2 (10:35→17:46)
[2018-01-26] MEDS: Magnesium Oxide 400 mg Tab UD PO SCH ×2 (10:35→17:46)
--- NOTE | 2018-01-27 06:39 | CP.PCM.PN ---
Subjective - Date & Time of Evaluation Date of Evaluation: 01/27/18 Time of Evaluation: 06:39 - Subjective Subjective: Ms. Bui is seen and examined at the bedside. She remains alert, oriented. She denies any headache, dizziness, nausea, or vomiting. She further states of feeling positive with her physical therapy.She is able to follow simple commands, with left facial droop, left side hemiplegia, and left side neglect. She has bilateral SCD on her lower extremities.She remains on telesitter for patient safety. There was no untoward events overnight. Objective - Vital Signs/Intake and Output Vital Signs (last 24 hours): Temp Pulse Resp BP Pulse Ox 98.1 F 77 20 122/81 100 01/26/18 23:10 01/26/18 23:10 01/26/18 23:10 01/26/18 23:10 01/26/18 23:10 Intake and Output: 01/26/18 01/27/18 18:59 06:59 Intake Total 1000 800 Output Total 1000 600 Balance 0 200 - Medications Medications: Current Medications Acetaminophen (Tylenol 325mg Tab) 975 mg PO Q6 PRN PRN Reason: Pain, Mild (1-3) Last Admin: 01/24/18 17:37 Dose: 975 mg Amlodipine Besylate (Norvasc) 10 mg PO DAILY [facility] Last Admin: 01/26/18 10:37 Dose: 10 mg Ascorbic Acid (Vitamin C 500 Mg Tab) 500 mg PO DAILY [facility] Last Admin: 01/26/18 10:37 Dose: 500 mg Aspirin (Aspirin Chewable) 81 mg NG DAILY [facility] Last Admin: 01/26/18 10:35 Dose: 81 mg Clopidogrel Bisulfate (Plavix) 75 mg NG DAILY [facility] Last Admin: 01/26/18 10:36 Dose: 75 mg Docusate Sodium (Colace) 100 mg PO BID [facility] Last Admin: 01/26/18 17:46 Dose: 100 mg Famotidine (Pepcid) 20 mg PO BID [facility] Last Admin: 01/26/18 17:46 Dose: 20 mg Fluoxetine HCl (Prozac) 20 mg PO DAILY [facility] Stop: 02/07/18 18:14 Last Admin: 01/26/18 10:37 Dose: 20 mg Folic Acid (Folic Acid) 1 mg PO DAILY [facility] Last Admin: 01/26/18 10:37 Dose: 1 mg Ciprofloxacin (Cipro 400mg/200ml Dsw) 400 mg in 200 mls @ 133 mls/hr IVPB Q12H [facility] PRN Reason: Protocol Stop: 01/31/18 20:01 Last Admin: 01/26/18 19:00 Dose: 133 mls/hr Lisinopril (Zestril) 5 mg PO DAILY [facility] Last Admin: 01/26/18 10:36 Dose: 5 mg Loratadine (Claritin) 10 mg PO DAILY PRN PRN Reason: Allergy symptoms Last Admin: 01/26/18 10:36 Dose: 10 mg Magnesium Oxide (Mag-Ox) 400 mg PO BID [facility] Last Admin: 01/26/18 17:46 Dose: 400 mg Ondansetron HCl (Zofran Inj) 4 mg IVP DAILY@ONCE PRN PRN Reason: Nausea/Vomiting Last Admin: 01/20/18 22:52 Dose: 4 mg Polyethylene Glycol (Miralax) 17 gm PO DAILY PRN PRN Reason: Constipation Quetiapine Fumarate (Seroquel) 25 mg PO DAILY [facility] Last Admin: 01/26/18 10:36 Dose: 25 mg Rosuvastatin Calcium (Crestor) 40 mg PO HS [facility] Last Admin: 01/26/18 21:44 Dose: 40 mg Saccharomyces Boulardii (Florastor) 250 mg PO BID [facility] Last Admin: 01/26/18 17:46 Dose: 250 mg Tetrahydrozoline HCl/Zinc Sulfate (Visine 0.05% Opht Soln) 2 ml OD Q4H PRN PRN Reason: itchy eyes Last Admin: 01/23/18 09:14 Dose: 1 drop Zinc Sulfate (Zinc Sulfate 220 Mg Cap) 220 mg PO DAILY [facility] Last Admin: 01/26/18 10:36 Dose: 220 mg - Labs Labs: 01/26/18 06:58 01/26/18 06:58 PT 12.2 SECONDS (9.7-12.2) 01/04/18 11:43 INR 1.1 01/04/18 11:43 APTT 26 SECONDS (21-34) 01/04/18 11:43 - Constitutional Appears: No Acute Distress - Head Exam Head Exam: NORMAL INSPECTION - Neurological Exam Neurological Exam: Alert, Awake, Oriented x3 Neuro motor strength exam: Left Upper Extremity: 0, Right Upper Extremity: 5, Left Lower Extremity: 3, Right Lower Extremity: 5 Additional comments: Neurological unchanged from previous examination. Assessment and Plan (1) CVA (cerebral vascular accident) Assessment & Plan: Case discussed with Dr. Castillo, continue all current medical, physical, occupational, and speech therapies. Recommend head of bed elevated, blood pressure and glycemic control.If the patient's mental status decline, please repeat CT scan of the head without contrast. Status: Acute
--- NOTE | 2018-01-27 06:59 | CP.PCM.PN ---
<Eileen Anaya MoisésNicole - Last Filed: 01/27/18 13:48> Subjective - Date & Time of Evaluation Date of Evaluation: 01/27/18 Time of Evaluation: 07:00 - Subjective Subjective: Medicine Progress Note: Patient was seen and examined at bedside in the AM. Per nurse no events overnight. Patient states she is feeling well and has been practicing some of her facial muscle exercises with her family. Patient continues to have paralysis of LUE and LLE. She denies dizziness, fever, chills, chest pain, SOB, and pain/swelling in the lower extremities. Objective - Vital Signs/Intake and Output Vital Signs (last 24 hours): Temp Pulse Resp BP Pulse Ox 98.1 F 77 20 122/81 100 01/26/18 23:10 01/26/18 23:10 01/26/18 23:10 01/26/18 23:10 01/26/18 23:10 Intake and Output: 01/26/18 01/27/18 18:59 06:59 Intake Total 1000 800 Output Total 1000 800 Balance 0 0 - Medications Medications: Current Medications Acetaminophen (Tylenol 325mg Tab) 975 mg PO Q6 PRN PRN Reason: Pain, Mild (1-3) Last Admin: 01/24/18 17:37 Dose: 975 mg Amlodipine Besylate (Norvasc) 10 mg PO DAILY [facility] Last Admin: 01/26/18 10:37 Dose: 10 mg Ascorbic Acid (Vitamin C 500 Mg Tab) 500 mg PO DAILY [facility] Last Admin: 01/26/18 10:37 Dose: 500 mg Aspirin (Aspirin Chewable) 81 mg NG DAILY [facility] Last Admin: 01/26/18 10:35 Dose: 81 mg Clopidogrel Bisulfate (Plavix) 75 mg NG DAILY [facility] Last Admin: 01/26/18 10:36 Dose: 75 mg Docusate Sodium (Colace) 100 mg PO BID [facility] Last Admin: 01/26/18 17:46 Dose: 100 mg Famotidine (Pepcid) 20 mg PO BID [facility] Last Admin: 01/26/18 17:46 Dose: 20 mg Fluoxetine HCl (Prozac) 20 mg PO DAILY [facility] Stop: 02/07/18 18:14 Last Admin: 01/26/18 10:37 Dose: 20 mg Folic Acid (Folic Acid) 1 mg PO DAILY [facility] Last Admin: 01/26/18 10:37 Dose: 1 mg Ciprofloxacin (Cipro 400mg/200ml Dsw) 400 mg in 200 mls @ 133 mls/hr IVPB Q12H [facility] PRN Reason: Protocol Stop: 01/31/18 20:01 Last Admin: 01/26/18 19:00 Dose: 133 mls/hr Lisinopril (Zestril) 5 mg PO DAILY [facility] Last Admin: 01/26/18 10:36 Dose: 5 mg Loratadine (Claritin) 10 mg PO DAILY PRN PRN Reason: Allergy symptoms Last Admin: 01/26/18 10:36 Dose: 10 mg Magnesium Oxide (Mag-Ox) 400 mg PO BID [facility] Last Admin: 01/26/18 17:46 Dose: 400 mg Ondansetron HCl (Zofran Inj) 4 mg IVP DAILY@ONCE PRN PRN Reason: Nausea/Vomiting Last Admin: 01/20/18 22:52 Dose: 4 mg Polyethylene Glycol (Miralax) 17 gm PO DAILY PRN PRN Reason: Constipation Quetiapine Fumarate (Seroquel) 25 mg PO DAILY [facility] Last Admin: 01/26/18 10:36 Dose: 25 mg Rosuvastatin Calcium (Crestor) 40 mg PO HS [facility] Last Admin: 01/26/18 21:44 Dose: 40 mg Saccharomyces Boulardii (Florastor) 250 mg PO BID [facility] Last Admin: 01/26/18 17:46 Dose: 250 mg Tetrahydrozoline HCl/Zinc Sulfate (Visine 0.05% Opht Soln) 2 ml OD Q4H PRN PRN Reason: itchy eyes Last Admin: 01/23/18 09:14 Dose: 1 drop Zinc Sulfate (Zinc Sulfate 220 Mg Cap) 220 mg PO DAILY [facility] Last Admin: 01/26/18 10:36 Dose: 220 mg - Labs Labs: 01/26/18 06:58 01/26/18 06:58 PT 12.2 SECONDS (9.7-12.2) 01/04/18 11:43 INR 1.1 01/04/18 11:43 APTT 26 SECONDS (21-34) 01/04/18 11:43 - Constitutional Appears: No Acute Distress - Head Exam Head Exam: ATRAUMATIC, NORMAL INSPECTION - Eye Exam Eye Exam: EOMI, Normal appearance - ENT Exam ENT Exam: Mucous Membranes Moist - Respiratory Exam Respiratory Exam: Clear to Ausculation Bilateral, NORMAL BREATHING PATTERN - Cardiovascular Exam Cardiovascular Exam: REGULAR RHYTHM, +S1, +S2 - GI/Abdominal Exam GI & Abdominal Exam: Soft, Normal Bowel Sounds. absent: Tenderness - Extremities Exam Extremities Exam: absent: Pedal Edema, Tenderness - Neurological Exam Neurological Exam: Alert, Awake, Oriented x3. absent: CN II-XII Intact (left facial droop) Neuro motor strength exam: Left Upper Extremity: 0, Right Upper Extremity: 4, Left Lower Extremity: 0, Right Lower Extremity: 4 - Psychiatric Exam Psychiatric exam: Normal Mood - Skin Skin Exam: Normal Color Assessment and Plan - Assessment and Plan (Free Text) Assessment: Disposition: Patient needs acute rehab at discharge, however she has no insurance. Will continue to work with case management for discharge plans. Per PT, patient can not use a wheelchair because she cannot transfer from bed to chair without max assistance. No changes at this time. 1.) Acute CVA affecting the right parietal/temporal area. * Dr. Castillo (neuro) consulted, help appreciated * Pureed/dysphagia diet * Head of bed elevation * PT/OT Imaging: * 01/[address]: Large hypodensity at the right brain suggestive of acute right MCA territory infarction. Suspicious for right dense MCA sign. If clinically warranted CTA of the head is suggested to evaluate for right MCA occlusion. * 01/04 CTA head and neck: Focal moderate stenosis approximately 75-80 percent noted at the origin of the right internal carotid artery with possible soft plaque. Mild approximately 55 percent stenosis noted at the origin of the left internal carotid artery. Diffuse atherosclerotic disease and calcification noted at the distal internal carotid arteries bilaterally with foci of mild stenosis noted at the supraclinoid portion of the left internal carotid artery. Diffuse approximately 50 percent stenosis of M1 segment of the right middle cerebral artery. Sharp cut off at the M1 bifurcation of the right middle cerebral artery noted. Occlusion of the anterior temporal M2 segment of the right middle cerebral artery at its origin. * 01/[address]: Acute infarct in the right frontal, parietal and temporal lobes. No acute hemorrhage. Midline shift to the left. Prior images have been requested for direct comparison. Comparison is made to prior report. * 01/04 Echo: Normal study with EF 65-70% * 01/[address]: Large right MCA and LAURI territory infarct changes which involve a large portion of the right cerebral hemisphere. The infarct exerts considerable mass effect with overlying sulcal effacement and compressive effects on the right lateral ventricle particularly the right temporal horn with mild [id number] midline shift. No evidence of acute intracranial hemorrhage. Mild underlying chronic white matter ischemic changes seen left cerebral hemisphere as well. No obstructive hydrocephalus. * 01/05 MRI Brain: Acute infarct changes involving a good portion of the right cerebral hemisphere (distal branches of the right middle cerebral artery and anterior cerebral nor arteries). Questionable early hemorrhagic conversion changes right basal ganglia evidenced by foci of dark T2 signal in these locations on gradient echo sequence with isointense T1 signal. Persistent mass effect with mild midline shift. HEMORRHAGE: Questionable early hemorrhagic conversion changes right basal ganglia evidenced by foci of dark T2 signal in these locations on gradient echo sequence with isointense T1 signal * 01/05 Lower extremity US: negative for DVT * 01/[address]: Stable large right renal infarcted involving the right anterior middle cerebral artery territories as discussed above with stable mass effect effacing the sulci of the right cerebral hemisphere in causing a limited leftward some fall seen shift of 3-4 mm once again. No interval intracranial hemorrhage or expansion of the infarcted territory appreciated. Limited age- related neuro degenerative change reiterated at the left cerebral hemisphere. * 01/[address]: Acute/ subacute right frontotemporoparietal infarct. This involves both the LAURI and MCA territory. No hemorrhage. 2-3 mm midline shift towards the left. No significant change from prior examination. * 01/[address]: Expected changes status post right frontotemporoparietal infarct now with cortical laminar necrosis. No hemorrhage. Minimal midline shift. Medications: * Norvasc 10 mg QD * Lisinopril 5 mg QD * ASA 81 mg QD * Plavix 75 mg QD * discontinued (01/16/18) Valproate 500 mg IV Q12h due to elevated liver enzymes * Seroquel 25 mg QD * Fluoxetine 20 mg QD * Zinc 220 mg QD 2.) UTI * UA: +1 Leuk esterase * Urine culture: Klebsiella Pneumoniae * Ciprofloxacin 400 mg in 200 mls @ 133 mls/hr IVPB Q12H [facility] * Stop date: 01/31/18 * Florastor 250 PO BID 3.) Constipation - resolved * CT abdomen and pelvis without contrast: 1. Constipation with fecal stasis in the sigmoid colon and rectum. No evidence of bowel obstruction. 2. No acute abdominal or pelvic abnormality. * On colace BID * gave 1 dose of miralax today - will advance if needed 4.) Vaginal yeast infection - resolved * Diflucan 200 mg PO once 5.) Seasonal Allergies * Claritin PRN * Visine PRN * Saline Nasal [place] * Mucinex x1 dose on 01/22 6.) Heavy alcohol use * Counseled on cessation 7.) Hyperlipidemia * Cholesterol 210, Triglycerides 248, LDL 92, HDL 81 * Crestor 40 mg HS 8.) Prophylaxis * Pepcid 20 mg BID * Florastor 250 PO BID * SCDs * Claritin PRN allergy symptoms Case discussed with Dr. Shlomo Anaya PGY-1 <Lacy Keenan - Last Filed: 01/27/18 16:16> Objective - Vital Signs/Intake and Output Vital Signs (last 24 hours): Temp Pulse Resp BP Pulse Ox 97.5 F L 82 20 118/76 100 01/27/18 07:15 01/27/18 09:15 01/27/18 07:15 01/27/18 09:15 01/27/18 07:15 Intake and Output: 01/27/18 01/27/18 06:59 18:59 Intake Total 800 600 Output Total 800 200 Balance 0 400 - Medications Medications: Current Medications Acetaminophen (Tylenol 325mg Tab) 975 mg PO Q6 PRN PRN Reason: Pain, Mild (1-3) Last Admin: 01/24/18 17:37 Dose: 975 mg Amlodipine Besylate (Norvasc) 10 mg PO DAILY [facility] Last Admin: 01/27/18 09:32 Dose: 10 mg Ascorbic Acid (Vitamin C 500 Mg Tab) 500 mg PO DAILY [facility] Last Admin: 01/27/18 10:01 Dose: 500 mg Aspirin (Aspirin Chewable) 81 mg NG DAILY [facility] Last Admin: 01/27/18 09:32 Dose: 81 mg Clopidogrel Bisulfate (Plavix) 75 mg NG DAILY [facility] Last Admin: 01/27/18 10:01 Dose: 75 mg Docusate Sodium (Colace) 100 mg PO BID [facility] Last Admin: 01/27/18 10:01 Dose: 100 mg Famotidine (Pepcid) 20 mg PO BID [facility] Last Admin: 01/27/18 09:32 Dose: 20 mg Fluoxetine HCl (Prozac) 20 mg PO DAILY [facility] Stop: 02/07/18 18:14 Last Admin: 01/27/18 09:31 Dose: 20 mg Folic Acid (Folic Acid) 1 mg PO DAILY [facility] Last Admin: 01/27/18 09:32 Dose: 1 mg Ciprofloxacin (Cipro 400mg/200ml Dsw) 400 mg in 200 mls @ 133 mls/hr IVPB Q12H [facility] PRN Reason: Protocol Stop: 01/31/18 20:01 Last Admin: 01/27/18 08:56 Dose: 133 mls/hr Lisinopril (Zestril) 5 mg PO DAILY [facility] Last Admin: 01/27/18 10:02 Dose: 5 mg Loratadine (Claritin) 10 mg PO DAILY PRN PRN Reason: Allergy symptoms Last Admin: 01/27/18 13:18 Dose: 10 mg Magnesium Oxide (Mag-Ox) 400 mg PO BID [facility] Last Admin: 01/27/18 10:01 Dose: 400 mg Ondansetron HCl (Zofran Inj) 4 mg IVP DAILY@ONCE PRN PRN Reason: Nausea/Vomiting Last Admin: 01/20/18 22:52 Dose: 4 mg Polyethylene Glycol (Miralax) 17 gm PO DAILY PRN PRN Reason: Constipation Quetiapine Fumarate (Seroquel) 25 mg PO DAILY [facility] Last Admin: 01/27/18 09:32 Dose: 25 mg Rosuvastatin Calcium (Crestor) 40 mg PO HS [facility] Last Admin: 01/26/18 21:44 Dose: 40 mg Saccharomyces Boulardii (Florastor) 250 mg PO BID [facility] Last Admin: 01/27/18 09:31 Dose: 250 mg Sodium Chloride ([place] Baby Saline 30 Ml) 0 ml JYOTHI Q4H [facility] Last Admin: 01/27/18 12:42 Dose: 2 sprays Tetrahydrozoline HCl/Zinc Sulfate (Visine 0.05% Opht Soln) 2 ml OD Q4H PRN PRN Reason: itchy eyes Last Admin: 01/23/18 09:14 Dose: 1 drop Zinc Sulfate (Zinc Sulfate 220 Mg Cap) 220 mg PO DAILY [facility] Last Admin: 01/27/18 09:31 Dose: 220 mg - Labs Labs: 01/26/18 06:58 01/26/18 06:58 PT 12.2 SECONDS (9.7-12.2) 01/04/18 11:43 INR 1.1 01/04/18 11:43 APTT 26 SECONDS (21-34) 01/04/18 11:43 Attending/Attestation - Attestation I have personally seen and examined this patient.: No I have fully participated in the care of the patient.: Yes I have reviewed all pertinent clinical information, including history, physical exam and plan: Yes
[2018-01-27] MEDS: Ciprofloxacin 400mg/200ml D5W 400 MG/200 ML BAG IVPB SCH ×2 (08:56→19:21)
[2018-01-27] MEDS: Sodium Chloride Nasal 0.65% Soln (30ml) NAS SCH ×5 (08:57→23:58)
[2018-01-27] MEDS: Saccharomyces Boulardi 250 mg Cap PO SCH ×2 (09:31→18:13)
[2018-01-27] MEDS: Magnesium Oxide 400 mg Tab UD PO SCH ×2 (10:01→18:13)
[2018-01-28] MEDS: Sodium Chloride Nasal 0.65% Soln (30ml) NAS SCH ×5 (04:00→19:43)
[2018-01-28] MEDS: Ciprofloxacin 400mg/200ml D5W 400 MG/200 ML BAG IVPB SCH ×2 (07:55→19:44)
--- NOTE | 2018-01-28 10:29 | CP.PCM.PN ---
<HéctorEileen MoisésNicole - Last Filed: 01/28/18 10:24> Subjective - Date & Time of Evaluation Date of Evaluation: 01/28/18 Time of Evaluation: 07:00 - Subjective Subjective: Medicine Progress Note: Patient was seen and examined at bedside in the AM. Per nurse no events overnight. Patient states she has minor left shoulder and left hip discomfort. Patient states she had physical therapy yesterday and continues to practice some of her facial muscle exercises with her family. Patient continues to have paralysis of LUE and LLE. She denies dizziness, fever, chills, chest pain, SOB, and swelling in the lower extremities. Objective - Vital Signs/Intake and Output Vital Signs (last 24 hours): Temp Pulse Resp BP Pulse Ox 97.9 F 71 20 128/83 98 01/28/18 07:20 01/28/18 07:20 01/28/18 07:20 01/28/18 07:20 01/28/18 07:20 Intake and Output: 01/28/18 01/28/18 06:59 18:59 Intake Total 200 Output Total 1150 Balance -950 - Medications Medications: Current Medications Acetaminophen (Tylenol 325mg Tab) 975 mg PO Q6 PRN PRN Reason: Pain, Mild (1-3) Last Admin: 01/28/18 07:59 Dose: 975 mg Amlodipine Besylate (Norvasc) 10 mg PO DAILY [facility] Last Admin: 01/27/18 09:32 Dose: 10 mg Ascorbic Acid (Vitamin C 500 Mg Tab) 500 mg PO DAILY [facility] Last Admin: 01/27/18 10:01 Dose: 500 mg Aspirin (Aspirin Chewable) 81 mg NG DAILY [facility] Last Admin: 01/27/18 09:32 Dose: 81 mg Clopidogrel Bisulfate (Plavix) 75 mg NG DAILY [facility] Last Admin: 01/27/18 10:01 Dose: 75 mg Docusate Sodium (Colace) 100 mg PO BID [facility] Last Admin: 01/27/18 18:13 Dose: 100 mg Famotidine (Pepcid) 20 mg PO BID [facility] Last Admin: 01/27/18 18:13 Dose: 20 mg Fluoxetine HCl (Prozac) 20 mg PO DAILY [facility] Stop: 02/07/18 18:14 Last Admin: 01/27/18 09:31 Dose: 20 mg Folic Acid (Folic Acid) 1 mg PO DAILY [facility] Last Admin: 01/27/18 09:32 Dose: 1 mg Ciprofloxacin (Cipro 400mg/200ml Dsw) 400 mg in 200 mls @ 133 mls/hr IVPB Q12H [facility] PRN Reason: Protocol Stop: 01/31/18 20:01 Last Admin: 01/28/18 07:55 Dose: 133 mls/hr Lisinopril (Zestril) 5 mg PO DAILY [facility] Last Admin: 01/27/18 10:02 Dose: 5 mg Loratadine (Claritin) 10 mg PO DAILY PRN PRN Reason: Allergy symptoms Last Admin: 01/27/18 13:18 Dose: 10 mg Magnesium Oxide (Mag-Ox) 400 mg PO BID [facility] Last Admin: 01/27/18 18:13 Dose: 400 mg Ondansetron HCl (Zofran Inj) 4 mg IVP DAILY@ONCE PRN PRN Reason: Nausea/Vomiting Last Admin: 01/20/18 22:52 Dose: 4 mg Polyethylene Glycol (Miralax) 17 gm PO DAILY PRN PRN Reason: Constipation Quetiapine Fumarate (Seroquel) 25 mg PO DAILY [facility] Last Admin: 01/27/18 09:32 Dose: 25 mg Rosuvastatin Calcium (Crestor) 40 mg PO HS [facility] Last Admin: 01/27/18 21:29 Dose: 40 mg Saccharomyces Boulardii (Florastor) 250 mg PO BID [facility] Last Admin: 01/27/18 18:13 Dose: 250 mg Sodium Chloride ([place] Baby Saline 30 Ml) 0 ml JYOTHI Q4H [facility] Last Admin: 01/28/18 04:00 Dose: Not Given Tetrahydrozoline HCl/Zinc Sulfate (Visine 0.05% Opht Soln) 2 ml OD Q4H PRN PRN Reason: itchy eyes Last Admin: 01/23/18 09:14 Dose: 1 drop Zinc Sulfate (Zinc Sulfate 220 Mg Cap) 220 mg PO DAILY [facility] Last Admin: 01/27/18 09:31 Dose: 220 mg - Labs Labs: 01/26/18 06:58 01/26/18 06:58 PT 12.2 SECONDS (9.7-12.2) 01/04/18 11:43 INR 1.1 01/04/18 11:43 APTT 26 SECONDS (21-34) 01/04/18 11:43 - Constitutional Appears: No Acute Distress - Head Exam Head Exam: ATRAUMATIC, NORMAL INSPECTION - Eye Exam Eye Exam: EOMI, Normal appearance - ENT Exam ENT Exam: Mucous Membranes Moist - Respiratory Exam Respiratory Exam: Clear to Ausculation Bilateral, NORMAL BREATHING PATTERN - Cardiovascular Exam Cardiovascular Exam: REGULAR RHYTHM, +S1, +S2 - GI/Abdominal Exam GI & Abdominal Exam: Soft, Normal Bowel Sounds. absent: Tenderness - Extremities Exam Extremities Exam: absent: Pedal Edema, Tenderness - Neurological Exam Neurological Exam: Alert, Awake, Oriented x3. absent: CN II-XII Intact (left facial droop) Neuro motor strength exam: Left Upper Extremity: 0, Right Upper Extremity: 4, Left Lower Extremity: 0, Right Lower Extremity: 4 - Psychiatric Exam Psychiatric exam: Normal Affect, Normal Mood - Skin Skin Exam: Normal Color Assessment and Plan - Assessment and Plan (Free Text) Assessment: Disposition: Patient needs acute rehab at discharge, however she has no insurance. Will continue to work with case management for discharge plans. Per PT, patient can not use a wheelchair because she cannot transfer from bed to chair without max assistance. No changes at this time. 1.) Acute CVA affecting the right parietal/temporal area. * Dr. Castillo (neuro) consulted, help appreciated * Pureed/dysphagia diet * Head of bed elevation * PT/OT Imaging: * 01/[address]: Large hypodensity at the right brain suggestive of acute right MCA territory infarction. Suspicious for right dense MCA sign. If clinically warranted CTA of the head is suggested to evaluate for right MCA occlusion. * 01/04 CTA head and neck: Focal moderate stenosis approximately 75-80 percent noted at the origin of the right internal carotid artery with possible soft plaque. Mild approximately 55 percent stenosis noted at the origin of the left internal carotid artery. Diffuse atherosclerotic disease and calcification noted at the distal internal carotid arteries bilaterally with foci of mild stenosis noted at the supraclinoid portion of the left internal carotid artery. Diffuse approximately 50 percent stenosis of M1 segment of the right middle cerebral artery. Sharp cut off at the M1 bifurcation of the right middle cerebral artery noted. Occlusion of the anterior temporal M2 segment of the right middle cerebral artery at its origin. * 01/[address]: Acute infarct in the right frontal, parietal and temporal lobes. No acute hemorrhage. Midline shift to the left. Prior images have been requested for direct comparison. Comparison is made to prior report. * 01/04 Echo: Normal study with EF 65-70% * 01/[address]: Large right MCA and LAURI territory infarct changes which involve a large portion of the right cerebral hemisphere. The infarct exerts considerable mass effect with overlying sulcal effacement and compressive effects on the right lateral ventricle particularly the right temporal horn with mild [id number] midline shift. No evidence of acute intracranial hemorrhage. Mild underlying chronic white matter ischemic changes seen left cerebral hemisphere as well. No obstructive hydrocephalus. * 01/05 MRI Brain: Acute infarct changes involving a good portion of the right cerebral hemisphere (distal branches of the right middle cerebral artery and anterior cerebral nor arteries). Questionable early hemorrhagic conversion changes right basal ganglia evidenced by foci of dark T2 signal in these locations on gradient echo sequence with isointense T1 signal. Persistent mass effect with mild midline shift. HEMORRHAGE: Questionable early hemorrhagic conversion changes right basal ganglia evidenced by foci of dark T2 signal in these locations on gradient echo sequence with isointense T1 signal * 01/05 Lower extremity US: negative for DVT * 01/[address]: Stable large right renal infarcted involving the right anterior middle cerebral artery territories as discussed above with stable mass effect effacing the sulci of the right cerebral hemisphere in causing a limited leftward some fall seen shift of 3-4 mm once again. No interval intracranial hemorrhage or expansion of the infarcted territory appreciated. Limited age- related neuro degenerative change reiterated at the left cerebral hemisphere. * 01/[address]: Acute/ subacute right frontotemporoparietal infarct. This involves both the LAURI and MCA territory. No hemorrhage. 2-3 mm midline shift towards the left. No significant change from prior examination. * 01/[address]: Expected changes status post right frontotemporoparietal infarct now with cortical laminar necrosis. No hemorrhage. Minimal midline shift. Medications: * Norvasc 10 mg QD * Lisinopril 5 mg QD * ASA 81 mg QD * Plavix 75 mg QD * discontinued (01/16/18) Valproate 500 mg IV Q12h due to elevated liver enzymes * Seroquel 25 mg QD * Fluoxetine 20 mg QD * Zinc 220 mg QD * Tylenol 975mg po q6h prn 2.) UTI * UA: +1 Leuk esterase * Urine culture: Klebsiella Pneumoniae * Ciprofloxacin 400 mg in 200 mls @ 133 mls/hr IVPB Q12H [facility] * Stop date: 01/31/18 * Florastor 250 PO BID 3.) Constipation - resolved * CT abdomen and pelvis without contrast: 1. Constipation with fecal stasis in the sigmoid colon and rectum. No evidence of bowel obstruction. 2. No acute abdominal or pelvic abnormality. * On colace BID * gave 1 dose of miralax today - will advance if needed 4.) Vaginal yeast infection - resolved * Diflucan 200 mg PO once 5.) Seasonal Allergies * Claritin PRN * Visine PRN * Saline Nasal [place] * Mucinex x1 dose on 01/22 6.) Heavy alcohol use * Counseled on cessation 7.) Hyperlipidemia * Cholesterol 210, Triglycerides 248, LDL 92, HDL 81 * Crestor 40 mg HS 8.) Prophylaxis * Pepcid 20 mg BID * Florastor 250 PO BID * SCDs * Claritin PRN allergy symptoms Case discussed with Dr. Shlomo Anaya PGY-1 <Lacy Keenan - Last Filed: 01/28/18 12:18> Objective - Vital Signs/Intake and Output Vital Signs (last 24 hours): Temp Pulse Resp BP Pulse Ox 97.9 F 71 20 128/83 98 01/28/18 07:20 01/28/18 07:20 01/28/18 07:20 01/28/18 07:20 01/28/18 07:20 Intake and Output: 01/28/18 01/28/18 06:59 18:59 Intake Total 200 Output Total 1150 Balance -950 - Medications Medications: Current Medications Acetaminophen (Tylenol 325mg Tab) 975 mg PO Q6 PRN PRN Reason: Pain, Mild (1-3) Last Admin: 01/28/18 07:59 Dose: 975 mg Amlodipine Besylate (Norvasc) 10 mg PO DAILY [facility] Last Admin: 01/28/18 10:57 Dose: 10 mg Ascorbic Acid (Vitamin C 500 Mg Tab) 500 mg PO DAILY [facility] Last Admin: 01/28/18 10:57 Dose: 500 mg Aspirin (Aspirin Chewable) 81 mg NG DAILY [facility] Last Admin: 01/28/18 10:57 Dose: 81 mg Clopidogrel Bisulfate (Plavix) 75 mg NG DAILY [facility] Last Admin: 01/28/18 10:57 Dose: 75 mg Docusate Sodium (Colace) 100 mg PO BID [facility] Last Admin: 01/28/18 10:57 Dose: 100 mg Famotidine (Pepcid) 20 mg PO BID [facility] Last Admin: 01/28/18 10:58 Dose: 20 mg Fluoxetine HCl (Prozac) 20 mg PO DAILY [facility] Stop: 02/07/18 18:14 Last Admin: 01/28/18 10:57 Dose: 20 mg Folic Acid (Folic Acid) 1 mg PO DAILY [facility] Last Admin: 01/28/18 10:57 Dose: 1 mg Ciprofloxacin (Cipro 400mg/200ml Dsw) 400 mg in 200 mls @ 133 mls/hr IVPB Q12H [facility] PRN Reason: Protocol Stop: 01/31/18 20:01 Last Admin: 01/28/18 07:55 Dose: 133 mls/hr Lisinopril (Zestril) 5 mg PO DAILY [facility] Last Admin: 01/28/18 10:57 Dose: 5 mg Loratadine (Claritin) 10 mg PO DAILY PRN PRN Reason: Allergy symptoms Last Admin: 01/28/18 10:57 Dose: 10 mg Magnesium Oxide (Mag-Ox) 400 mg PO BID [facility] Last Admin: 01/28/18 10:58 Dose: 400 mg Ondansetron HCl (Zofran Inj) 4 mg IVP DAILY@ONCE PRN PRN Reason: Nausea/Vomiting Last Admin: 01/20/18 22:52 Dose: 4 mg Polyethylene Glycol (Miralax) 17 gm PO DAILY PRN PRN Reason: Constipation Quetiapine Fumarate (Seroquel) 25 mg PO DAILY [facility] Last Admin: 01/28/18 11:01 Dose: 25 mg Rosuvastatin Calcium (Crestor) 40 mg PO [facility] Last Admin: 01/27/18 21:29 Dose: 40 mg Saccharomyces Boulardii (Florastor) 250 mg PO BID [facility] Last Admin: 01/28/18 10:57 Dose: 250 mg Sodium Chloride ([place] Baby Saline 30 Ml) 0 ml JYOTHI Q4H [facility] Last Admin: 01/28/18 04:00 Dose: Not Given Tetrahydrozoline HCl/Zinc Sulfate (Visine 0.05% Opht Soln) 2 ml OD Q4H PRN PRN Reason: itchy eyes Last Admin: 01/23/18 09:14 Dose: 1 drop Zinc Sulfate (Zinc Sulfate 220 Mg Cap) 220 mg PO DAILY [facility] Last Admin: 01/28/18 11:01 Dose: 220 mg - Labs Labs: 01/26/18 06:58 01/26/18 06:58 PT 12.2 SECONDS (9.7-12.2) 01/04/18 11:43 INR 1.1 01/04/18 11:43 APTT 26 SECONDS (21-34) 01/04/18 11:43 Attending/Attestation - Attestation I have personally seen and examined this patient.: Yes I have fully participated in the care of the patient.: Yes I have reviewed all pertinent clinical information, including history, physical exam and plan: Yes Notes (Text): Patient was seen and examined this morning. Complaining of left shoulder and left thigh pain. She wants pain medication. On examination no signs of inflammation and no joint swelling. This constant pain is after stroke. Getting IV cipro for UTI. She thinks she is gaining weight. Her family bring food. I see changes/gaining weight.( Her charted weight does goes with our observation) Patient was encouraged to do exercise her left arm and leg. Discussed about her diet and maintaining her weight d/w the resident. I agree with the documentation of the resident's assessment and the plan
[2018-01-28] MEDS: Saccharomyces Boulardi 250 mg Cap PO SCH ×2 (10:57→17:50)
[2018-01-28] MEDS: Magnesium Oxide 400 mg Tab UD PO SCH ×2 (10:58→17:50)
--- NOTE | 2018-01-28 15:13 | CP.PCM.PN ---
Subjective - Date & Time of Evaluation Date of Evaluation: 01/28/18 Time of Evaluation: 15:12 - Subjective Subjective: Ms. Bui is seen and examined at the bedside. She remains alert, oriented. She denies any headache, dizziness, nausea, or vomiting. She further states of feeling positive with her physical therapy.She is able to follow simple commands, with left facial droop, left side hemiplegia, and left side neglect. She is excited of her supplement ensure. She is able to feed herself independently. She has bilateral SCD on her lower extremities.She remains on telesitter for patient safety. There was no untoward events overnight. Objective - Vital Signs/Intake and Output Vital Signs (last 24 hours): Temp Pulse Resp BP Pulse Ox 97.9 F 71 20 128/83 98 01/28/18 07:20 01/28/18 07:20 01/28/18 07:20 01/28/18 07:20 01/28/18 07:20 Intake and Output: 01/28/18 01/28/18 06:59 18:59 Intake Total 200 Output Total 1150 Balance -950 - Medications Medications: Current Medications Acetaminophen (Tylenol 325mg Tab) 975 mg PO Q6 PRN PRN Reason: Pain, Mild (1-3) Last Admin: 01/28/18 07:59 Dose: 975 mg Amlodipine Besylate (Norvasc) 10 mg PO DAILY [facility] Last Admin: 01/28/18 10:57 Dose: 10 mg Ascorbic Acid (Vitamin C 500 Mg Tab) 500 mg PO DAILY [facility] Last Admin: 01/28/18 10:57 Dose: 500 mg Aspirin (Aspirin Chewable) 81 mg NG DAILY [facility] Last Admin: 01/28/18 10:57 Dose: 81 mg Clopidogrel Bisulfate (Plavix) 75 mg NG DAILY [facility] Last Admin: 01/28/18 10:57 Dose: 75 mg Docusate Sodium (Colace) 100 mg PO BID [facility] Last Admin: 01/28/18 10:57 Dose: 100 mg Famotidine (Pepcid) 20 mg PO BID [facility] Last Admin: 01/28/18 10:58 Dose: 20 mg Fluoxetine HCl (Prozac) 20 mg PO DAILY [facility] Stop: 02/07/18 18:14 Last Admin: 01/28/18 10:57 Dose: 20 mg Folic Acid (Folic Acid) 1 mg PO DAILY [facility] Last Admin: 01/28/18 10:57 Dose: 1 mg Ciprofloxacin (Cipro 400mg/200ml Dsw) 400 mg in 200 mls @ 133 mls/hr IVPB Q12H [facility] PRN Reason: Protocol Stop: 01/31/18 20:01 Last Admin: 01/28/18 07:55 Dose: 133 mls/hr Lisinopril (Zestril) 5 mg PO DAILY [facility] Last Admin: 01/28/18 10:57 Dose: 5 mg Loratadine (Claritin) 10 mg PO DAILY PRN PRN Reason: Allergy symptoms Last Admin: 01/28/18 10:57 Dose: 10 mg Magnesium Oxide (Mag-Ox) 400 mg PO BID [facility] Last Admin: 01/28/18 10:58 Dose: 400 mg Ondansetron HCl (Zofran Inj) 4 mg IVP DAILY@ONCE PRN PRN Reason: Nausea/Vomiting Last Admin: 01/20/18 22:52 Dose: 4 mg Polyethylene Glycol (Miralax) 17 gm PO DAILY PRN PRN Reason: Constipation Quetiapine Fumarate (Seroquel) 25 mg PO DAILY [facility] Last Admin: 01/28/18 11:01 Dose: 25 mg Rosuvastatin Calcium (Crestor) 40 mg PO HS [facility] Last Admin: 01/27/18 21:29 Dose: 40 mg Saccharomyces Boulardii (Florastor) 250 mg PO BID [facility] Last Admin: 01/28/18 10:57 Dose: 250 mg Sodium Chloride ([place] Baby Saline 30 Ml) 0 ml JYOTHI Q4H [facility] Last Admin: 01/28/18 04:00 Dose: Not Given Tetrahydrozoline HCl/Zinc Sulfate (Visine 0.05% Opht Soln) 2 ml OD Q4H PRN PRN Reason: itchy eyes Last Admin: 01/23/18 09:14 Dose: 1 drop Zinc Sulfate (Zinc Sulfate 220 Mg Cap) 220 mg PO DAILY [facility] Last Admin: 01/28/18 11:01 Dose: 220 mg - Labs Labs: 01/26/18 06:58 01/26/18 06:58 PT 12.2 SECONDS (9.7-12.2) 01/04/18 11:43 INR 1.1 01/04/18 11:43 APTT 26 SECONDS (21-34) 01/04/18 11:43 - Constitutional Appears: No Acute Distress - Head Exam Head Exam: NORMAL INSPECTION - Neurological Exam Neurological Exam: Alert, Awake, Oriented x3 Neuro motor strength exam: Left Upper Extremity: 0, Right Upper Extremity: 5, Left Lower Extremity: 3, Right Lower Extremity: 5 Additional comments: Neurological unchanged from previous examination. Assessment and Plan (1) CVA (cerebral vascular accident) Assessment & Plan: Case discussed with Dr. Castillo, continue all current medical, physical, occupational, and speech therapies. Recommend head of bed elevated, blood pressure and glycemic control.If the patient's mental status decline, please repeat CT scan of the head without contrast. Status: Acute
[2018-01-29] MEDS: Sodium Chloride Nasal 0.65% Soln (30ml) NAS SCH ×6 (04:00→20:54)
--- NOTE | 2018-01-29 06:51 | CP.PCM.PN ---
<HéctorEileen MoisésNicole - Last Filed: 01/29/18 09:26> Subjective - Date & Time of Evaluation Date of Evaluation: 01/29/18 Time of Evaluation: 07:00 - Subjective Subjective: Medicine Progress Note: Patient was seen and examined at bedside in the AM. Per nurse no events overnight. Patient states she feels well today. Patient states she continues to practice some of her facial muscle exercises with her family. Patient continues to have paralysis of LUE and LLE. She denies dizziness, fever, chills , chest pain, SOB, and swelling in the lower extremities. Objective - Vital Signs/Intake and Output Vital Signs (last 24 hours): Temp Pulse Resp BP Pulse Ox 98.2 F 72 20 108/72 99 01/29/18 04:10 01/29/18 04:10 01/29/18 04:10 01/29/18 04:10 01/29/18 04:10 Intake and Output: 01/28/18 01/29/18 18:59 06:59 Intake Total 200 100 Output Total 800 Balance 200 -700 - Medications Medications: Current Medications Acetaminophen (Tylenol 325mg Tab) 975 mg PO Q6 PRN PRN Reason: Pain, Mild (1-3) Last Admin: 01/28/18 07:59 Dose: 975 mg Amlodipine Besylate (Norvasc) 10 mg PO DAILY [facility] Last Admin: 01/28/18 10:57 Dose: 10 mg Ascorbic Acid (Vitamin C 500 Mg Tab) 500 mg PO DAILY [facility] Last Admin: 01/28/18 10:57 Dose: 500 mg Aspirin (Aspirin Chewable) 81 mg NG DAILY [facility] Last Admin: 01/28/18 10:57 Dose: 81 mg Clopidogrel Bisulfate (Plavix) 75 mg NG DAILY [facility] Last Admin: 01/28/18 10:57 Dose: 75 mg Docusate Sodium (Colace) 100 mg PO BID [facility] Last Admin: 01/28/18 17:50 Dose: 100 mg Famotidine (Pepcid) 20 mg PO BID [facility] Last Admin: 01/28/18 17:50 Dose: 20 mg Fluoxetine HCl (Prozac) 20 mg PO DAILY [facility] Stop: 02/07/18 18:14 Last Admin: 01/28/18 10:57 Dose: 20 mg Folic Acid (Folic Acid) 1 mg PO DAILY [facility] Last Admin: 01/28/18 10:57 Dose: 1 mg Ciprofloxacin (Cipro 400mg/200ml Dsw) 400 mg in 200 mls @ 133 mls/hr IVPB Q12H [facility] PRN Reason: Protocol Stop: 01/31/18 20:01 Last Admin: 01/28/18 19:44 Dose: 133 mls/hr Lisinopril (Zestril) 5 mg PO DAILY [facility] Last Admin: 01/28/18 10:57 Dose: 5 mg Loratadine (Claritin) 10 mg PO DAILY PRN PRN Reason: Allergy symptoms Last Admin: 01/28/18 10:57 Dose: 10 mg Magnesium Oxide (Mag-Ox) 400 mg PO BID [facility] Last Admin: 01/28/18 17:50 Dose: 400 mg Ondansetron HCl (Zofran Inj) 4 mg IVP DAILY@ONCE PRN PRN Reason: Nausea/Vomiting Last Admin: 01/20/18 22:52 Dose: 4 mg Polyethylene Glycol (Miralax) 17 gm PO DAILY PRN PRN Reason: Constipation Quetiapine Fumarate (Seroquel) 25 mg PO DAILY [facility] Last Admin: 01/28/18 11:01 Dose: 25 mg Rosuvastatin Calcium (Crestor) 40 mg PO HS [facility] Last Admin: 01/28/18 21:08 Dose: 40 mg Saccharomyces Boulardii (Florastor) 250 mg PO BID [facility] Last Admin: 01/28/18 17:50 Dose: 250 mg Sodium Chloride (Dora Baby Saline 30 Ml) 0 ml JYOTHI Q4H [facility] Last Admin: 01/29/18 00:00 Dose: Not Given Tetrahydrozoline HCl/Zinc Sulfate (Visine 0.05% Opht Soln) 2 ml OD Q4H PRN PRN Reason: itchy eyes Last Admin: 01/23/18 09:14 Dose: 1 drop Zinc Sulfate (Zinc Sulfate 220 Mg Cap) 220 mg PO DAILY [facility] Last Admin: 01/28/18 11:01 Dose: 220 mg - Labs Labs: 01/26/18 06:58 01/26/18 06:58 PT 12.2 SECONDS (9.7-12.2) 01/04/18 11:43 INR 1.1 01/04/18 11:43 APTT 26 SECONDS (21-34) 01/04/18 11:43 - Constitutional Appears: No Acute Distress - Head Exam Head Exam: ATRAUMATIC, NORMAL INSPECTION - Eye Exam Eye Exam: EOMI, Normal appearance - ENT Exam ENT Exam: Mucous Membranes Moist - Respiratory Exam Respiratory Exam: Clear to Ausculation Bilateral, NORMAL BREATHING PATTERN - Cardiovascular Exam Cardiovascular Exam: REGULAR RHYTHM, +S1, +S2 - GI/Abdominal Exam GI & Abdominal Exam: Soft, Normal Bowel Sounds. absent: Tenderness - Extremities Exam Extremities Exam: Normal Inspection - Neurological Exam Neurological Exam: Alert, Awake, Oriented x3 Neuro motor strength exam: Left Upper Extremity: 0, Right Upper Extremity: 4, Left Lower Extremity: 0, Right Lower Extremity: 4 - Psychiatric Exam Psychiatric exam: Normal Affect, Normal Mood - Skin Skin Exam: Normal Color Assessment and Plan - Assessment and Plan (Free Text) Assessment: Disposition: Patient needs acute rehab at discharge, however she has no insurance. Will continue to work with case management for discharge plans. Per PT, patient can not use a wheelchair because she cannot transfer from bed to chair without max assistance. No changes at this time. 1.) Acute CVA affecting the right parietal/temporal area. * Dr. Castillo (neuro) consulted, help appreciated * Pureed/dysphagia diet * Head of bed elevation * PT/OT Imaging: * 01/[address]: Large hypodensity at the right brain suggestive of acute right MCA territory infarction. Suspicious for right dense MCA sign. If clinically warranted CTA of the head is suggested to evaluate for right MCA occlusion. * 01/04 CTA head and neck: Focal moderate stenosis approximately 75-80 percent noted at the origin of the right internal carotid artery with possible soft plaque. Mild approximately 55 percent stenosis noted at the origin of the left internal carotid artery. Diffuse atherosclerotic disease and calcification noted at the distal internal carotid arteries bilaterally with foci of mild stenosis noted at the supraclinoid portion of the left internal carotid artery. Diffuse approximately 50 percent stenosis of M1 segment of the right middle cerebral artery. Sharp cut off at the M1 bifurcation of the right middle cerebral artery noted. Occlusion of the anterior temporal M2 segment of the right middle cerebral artery at its origin. * 01/[address]: Acute infarct in the right frontal, parietal and temporal lobes. No acute hemorrhage. Midline shift to the left. Prior images have been requested for direct comparison. Comparison is made to prior report. * 01/04 Echo: Normal study with EF 65-70% * 01/[address]: Large right MCA and LAURI territory infarct changes which involve a large portion of the right cerebral hemisphere. The infarct exerts considerable mass effect with overlying sulcal effacement and compressive effects on the right lateral ventricle particularly the right temporal horn with mild [id number] midline shift. No evidence of acute intracranial hemorrhage. Mild underlying chronic white matter ischemic changes seen left cerebral hemisphere as well. No obstructive hydrocephalus. * 01/05 MRI Brain: Acute infarct changes involving a good portion of the right cerebral hemisphere (distal branches of the right middle cerebral artery and anterior cerebral nor arteries). Questionable early hemorrhagic conversion changes right basal ganglia evidenced by foci of dark T2 signal in these locations on gradient echo sequence with isointense T1 signal. Persistent mass effect with mild midline shift. HEMORRHAGE: Questionable early hemorrhagic conversion changes right basal ganglia evidenced by foci of dark T2 signal in these locations on gradient echo sequence with isointense T1 signal * 01/05 Lower extremity US: negative for DVT * 01/[address]: Stable large right renal infarcted involving the right anterior middle cerebral artery territories as discussed above with stable mass effect effacing the sulci of the right cerebral hemisphere in causing a limited leftward some fall seen shift of 3-4 mm once again. No interval intracranial hemorrhage or expansion of the infarcted territory appreciated. Limited age- related neuro degenerative change reiterated at the left cerebral hemisphere. * 01/[address]: Acute/ subacute right frontotemporoparietal infarct. This involves both the LAURI and MCA territory. No hemorrhage. 2-3 mm midline shift towards the left. No significant change from prior examination. * 01/[address]: Expected changes status post right frontotemporoparietal infarct now with cortical laminar necrosis. No hemorrhage. Minimal midline shift. Medications: * Norvasc 10 mg QD * Lisinopril 5 mg QD * ASA 81 mg QD * Plavix 75 mg QD * discontinued (01/16/18) Valproate 500 mg IV Q12h due to elevated liver enzymes * Seroquel 25 mg QD * Fluoxetine 20 mg QD * Zinc 220 mg QD * Tylenol 975mg po q6h prn 2.) UTI * UA: +1 Leuk esterase * Urine culture: Klebsiella Pneumoniae * Ciprofloxacin 400 mg in 200 mls @ 133 mls/hr IVPB Q12H [facility] * Stop date: 01/31/18 * Florastor 250 PO BID 3.) Constipation - resolved * CT abdomen and pelvis without contrast: 1. Constipation with fecal stasis in the sigmoid colon and rectum. No evidence of bowel obstruction. 2. No acute abdominal or pelvic abnormality. * On colace BID * gave 1 dose of miralax today - will advance if needed 4.) Vaginal yeast infection - resolved * Diflucan 200 mg PO once 5.) Seasonal Allergies * Claritin PRN * Visine PRN * Saline Nasal [place] * Mucinex x1 dose on 01/22 6.) Heavy alcohol use * Counseled on cessation 7.) Hyperlipidemia * Cholesterol 210, Triglycerides 248, LDL 92, HDL 81 * Crestor 40 mg HS 8.) Prophylaxis * Pepcid 20 mg BID * Florastor 250 PO BID * SCDs * Claritin PRN allergy symptoms Case discussed with Dr. Shlomo Anaya PGY-1 <Lacy Keenan - Last Filed: 01/29/18 15:14> Objective - Vital Signs/Intake and Output Vital Signs (last 24 hours): Temp Pulse Resp BP Pulse Ox 98.1 F 84 18 115/81 100 01/29/18 07:30 01/29/18 09:31 01/29/18 07:30 01/29/18 09:31 01/29/18 07:30 Intake and Output: 01/29/18 01/29/18 06:59 18:59 Intake Total 100 550 Output Total 800 300 Balance -700 250 - Medications Medications: Current Medications Acetaminophen (Tylenol 325mg Tab) 975 mg PO Q6 PRN PRN Reason: Pain, Mild (1-3) Last Admin: 01/29/18 12:46 Dose: 975 mg Amlodipine Besylate (Norvasc) 10 mg PO DAILY [facility] Last Admin: 01/29/18 09:34 Dose: 10 mg Ascorbic Acid (Vitamin C 500 Mg Tab) 500 mg PO DAILY [facility] Last Admin: 01/29/18 09:33 Dose: 500 mg Aspirin (Aspirin Chewable) 81 mg NG DAILY [facility] Last Admin: 01/29/18 09:33 Dose: 81 mg Clopidogrel Bisulfate (Plavix) 75 mg NG DAILY [facility] Last Admin: 01/29/18 09:33 Dose: 75 mg Docusate Sodium (Colace) 100 mg PO BID [facility] Last Admin: 01/29/18 09:34 Dose: 100 mg Famotidine (Pepcid) 20 mg PO BID [facility] Last Admin: 01/29/18 09:34 Dose: 20 mg Fluoxetine HCl (Prozac) 20 mg PO DAILY [facility] Stop: 02/07/18 18:14 Last Admin: 01/29/18 09:34 Dose: 20 mg Folic Acid (Folic Acid) 1 mg PO DAILY [facility] Last Admin: 01/29/18 09:34 Dose: 1 mg Ciprofloxacin (Cipro 400mg/200ml Dsw) 400 mg in 200 mls @ 133 mls/hr IVPB Q12H [facility] PRN Reason: Protocol Stop: 01/31/18 20:01 Last Admin: 01/29/18 08:54 Dose: 133 mls/hr Lisinopril (Zestril) 5 mg PO DAILY [facility] Last Admin: 01/29/18 09:34 Dose: 5 mg Loratadine (Claritin) 10 mg PO DAILY PRN PRN Reason: Allergy symptoms Last Admin: 01/29/18 11:35 Dose: 10 mg Magnesium Oxide (Mag-Ox) 400 mg PO BID [facility] Last Admin: 01/29/18 09:34 Dose: 400 mg Ondansetron HCl (Zofran Inj) 4 mg IVP DAILY@ONCE PRN PRN Reason: Nausea/Vomiting Last Admin: 01/20/18 22:52 Dose: 4 mg Polyethylene Glycol (Miralax) 17 gm PO DAILY PRN PRN Reason: Constipation Quetiapine Fumarate (Seroquel) 25 mg PO DAILY [facility] Last Admin: 01/29/18 09:33 Dose: 25 mg Rosuvastatin Calcium (Crestor) 40 mg PO HS [facility] Last Admin: 01/28/18 21:08 Dose: 40 mg Saccharomyces Boulardii (Florastor) 250 mg PO BID [facility] Last Admin: 01/29/18 09:33 Dose: 250 mg Sodium Chloride (Dora Baby Saline 30 Ml) 0 ml JYOTHI Q4H [facility] Last Admin: 01/29/18 11:35 Dose: 2 sprays Tetrahydrozoline HCl/Zinc Sulfate (Visine 0.05% Opht Soln) 2 ml OD Q4H PRN PRN Reason: itchy eyes Last Admin: 01/23/18 09:14 Dose: 1 drop Zinc Sulfate (Zinc Sulfate 220 Mg Cap) 220 mg PO DAILY [facility] Last Admin: 01/29/18 09:33 Dose: 220 mg - Labs Labs: 01/26/18 06:58 01/26/18 06:58 PT 12.2 SECONDS (9.7-12.2) 01/04/18 11:43 INR 1.1 01/04/18 11:43 APTT 26 SECONDS (21-34) 01/04/18 11:43 Attending/Attestation - Attestation I have personally seen and examined this patient.: No I have fully participated in the care of the patient.: Yes I have reviewed all pertinent clinical information, including history, physical exam and plan: Yes
[2018-01-29] MEDS: Ciprofloxacin 400mg/200ml D5W 400 MG/200 ML BAG IVPB SCH ×2 (08:54→20:50)
[2018-01-29] MEDS: Saccharomyces Boulardi 250 mg Cap PO SCH ×2 (09:33→18:46)
[2018-01-29] MEDS: Magnesium Oxide 400 mg Tab UD PO SCH ×2 (09:34→18:46)
[2018-01-30] MEDS: Sodium Chloride Nasal 0.65% Soln (30ml) NAS SCH ×6 (04:00→21:05)
--- NOTE | 2018-01-30 07:16 | CP.PCM.PN ---
<Eileen Anaya MoisésNicole - Last Filed: 01/30/18 10:23> Subjective - Date & Time of Evaluation Date of Evaluation: 01/30/18 Time of Evaluation: 07:00 - Subjective Subjective: Medicine Progress Note: Patient was seen and examined at bedside in the AM. Per nurse no events overnight. Patient states she feels well today. Patient continues to have paralysis of LUE and LLE. She denies dizziness, fever, chills, chest pain, SOB, and swelling in the lower extremities. Objective - Vital Signs/Intake and Output Vital Signs (last 24 hours): Temp Pulse Resp BP Pulse Ox 97.8 F 84 20 129/74 100 01/30/18 04:00 01/30/18 04:00 01/30/18 04:00 01/30/18 04:00 01/30/18 04:00 Intake and Output: 01/30/18 01/30/18 06:59 18:59 Intake Total 520 Output Total 1250 Balance -730 - Medications Medications: Current Medications Acetaminophen (Tylenol 325mg Tab) 975 mg PO Q6 PRN PRN Reason: Pain, Mild (1-3) Last Admin: 01/29/18 21:45 Dose: 975 mg Amlodipine Besylate (Norvasc) 10 mg PO DAILY [facility] Last Admin: 01/29/18 09:34 Dose: 10 mg Ascorbic Acid (Vitamin C 500 Mg Tab) 500 mg PO DAILY [facility] Last Admin: 01/29/18 09:33 Dose: 500 mg Aspirin (Aspirin Chewable) 81 mg NG DAILY [facility] Last Admin: 01/29/18 09:33 Dose: 81 mg Clopidogrel Bisulfate (Plavix) 75 mg NG DAILY [facility] Last Admin: 01/29/18 09:33 Dose: 75 mg Docusate Sodium (Colace) 100 mg PO BID [facility] Last Admin: 01/29/18 18:47 Dose: Not Given Famotidine (Pepcid) 20 mg PO BID [facility] Last Admin: 01/29/18 18:46 Dose: 20 mg Fluoxetine HCl (Prozac) 20 mg PO DAILY [facility] Stop: 02/07/18 18:14 Last Admin: 01/29/18 09:34 Dose: 20 mg Folic Acid (Folic Acid) 1 mg PO DAILY [facility] Last Admin: 01/29/18 09:34 Dose: 1 mg Lisinopril (Zestril) 5 mg PO DAILY [facility] Last Admin: 01/29/18 09:34 Dose: 5 mg Loratadine (Claritin) 10 mg PO DAILY PRN PRN Reason: Allergy symptoms Last Admin: 01/29/18 11:35 Dose: 10 mg Magnesium Oxide (Mag-Ox) 400 mg PO BID [facility] Last Admin: 01/29/18 18:46 Dose: 400 mg Ondansetron HCl (Zofran Inj) 4 mg IVP DAILY@ONCE PRN PRN Reason: Nausea/Vomiting Last Admin: 01/20/18 22:52 Dose: 4 mg Polyethylene Glycol (Miralax) 17 gm PO DAILY PRN PRN Reason: Constipation Quetiapine Fumarate (Seroquel) 25 mg PO DAILY [facility] Last Admin: 01/29/18 09:33 Dose: 25 mg Rosuvastatin Calcium (Crestor) 40 mg PO HS [facility] Last Admin: 01/29/18 21:00 Dose: 40 mg Saccharomyces Boulardii (Florastor) 250 mg PO BID [facility] Last Admin: 01/29/18 18:46 Dose: 250 mg Sodium Chloride ([place] Baby Saline 30 Ml) 0 ml JYOTHI Q4H [facility] Last Admin: 01/30/18 04:00 Dose: Not Given Tetrahydrozoline HCl/Zinc Sulfate (Visine 0.05% Opht Soln) 2 ml OD Q4H PRN PRN Reason: itchy eyes Last Admin: 01/23/18 09:14 Dose: 1 drop Zinc Sulfate (Zinc Sulfate 220 Mg Cap) 220 mg PO DAILY [facility] Last Admin: 01/29/18 09:33 Dose: 220 mg - Labs Labs: 01/26/18 06:58 01/26/18 06:58 PT 12.2 SECONDS (9.7-12.2) 01/04/18 11:43 INR 1.1 01/04/18 11:43 APTT 26 SECONDS (21-34) 01/04/18 11:43 - Constitutional Appears: No Acute Distress - Head Exam Head Exam: ATRAUMATIC, NORMAL INSPECTION - Eye Exam Eye Exam: EOMI, Normal appearance - ENT Exam ENT Exam: Mucous Membranes Moist - Respiratory Exam Respiratory Exam: Clear to Ausculation Bilateral, NORMAL BREATHING PATTERN - Cardiovascular Exam Cardiovascular Exam: REGULAR RHYTHM, +S1, +S2 - GI/Abdominal Exam GI & Abdominal Exam: Soft, Normal Bowel Sounds. absent: Tenderness - Extremities Exam Extremities Exam: Normal Inspection - Neurological Exam Neurological Exam: Alert, Awake, Oriented x3 Neuro motor strength exam: Left Upper Extremity: 0, Right Upper Extremity: 4, Left Lower Extremity: 0, Right Lower Extremity: 4 - Psychiatric Exam Psychiatric exam: Normal Affect, Normal Mood - Skin Skin Exam: Normal Color, Warm Assessment and Plan - Assessment and Plan (Free Text) Assessment: Disposition: Patient needs acute rehab at discharge, however she has no insurance. Patient to have interview 01/30/18 for insurance approval. Will continue to work with case management for discharge plans. Per PT, patient can not use a wheelchair because she cannot transfer from bed to chair without max assistance. No changes at this time. 1.) Acute CVA affecting the right parietal/temporal area. * Dr. Castillo (neuro) consulted, help appreciated * Pureed/dysphagia diet * Head of bed elevation * PT/OT Imaging: * 01/[address]: Large hypodensity at the right brain suggestive of acute right MCA territory infarction. Suspicious for right dense MCA sign. If clinically warranted CTA of the head is suggested to evaluate for right MCA occlusion. * 01/04 CTA head and neck: Focal moderate stenosis approximately 75-80 percent noted at the origin of the right internal carotid artery with possible soft plaque. Mild approximately 55 percent stenosis noted at the origin of the left internal carotid artery. Diffuse atherosclerotic disease and calcification noted at the distal internal carotid arteries bilaterally with foci of mild stenosis noted at the supraclinoid portion of the left internal carotid artery. Diffuse approximately 50 percent stenosis of M1 segment of the right middle cerebral artery. Sharp cut off at the M1 bifurcation of the right middle cerebral artery noted. Occlusion of the anterior temporal M2 segment of the right middle cerebral artery at its origin. * 01/[address]: Acute infarct in the right frontal, parietal and temporal lobes. No acute hemorrhage. Midline shift to the left. Prior images have been requested for direct comparison. Comparison is made to prior report. * 01/04 Echo: Normal study with EF 65-70% * 01/[address]: Large right MCA and LAURI territory infarct changes which involve a large portion of the right cerebral hemisphere. The infarct exerts considerable mass effect with overlying sulcal effacement and compressive effects on the right lateral ventricle particularly the right temporal horn with mild [id number] midline shift. No evidence of acute intracranial hemorrhage. Mild underlying chronic white matter ischemic changes seen left cerebral hemisphere as well. No obstructive hydrocephalus. * 01/05 MRI Brain: Acute infarct changes involving a good portion of the right cerebral hemisphere (distal branches of the right middle cerebral artery and anterior cerebral nor arteries). Questionable early hemorrhagic conversion changes right basal ganglia evidenced by foci of dark T2 signal in these locations on gradient echo sequence with isointense T1 signal. Persistent mass effect with mild midline shift. HEMORRHAGE: Questionable early hemorrhagic conversion changes right basal ganglia evidenced by foci of dark T2 signal in these locations on gradient echo sequence with isointense T1 signal * 01/05 Lower extremity US: negative for DVT * 01/[address]: Stable large right renal infarcted involving the right anterior middle cerebral artery territories as discussed above with stable mass effect effacing the sulci of the right cerebral hemisphere in causing a limited leftward some fall seen shift of 3-4 mm once again. No interval intracranial hemorrhage or expansion of the infarcted territory appreciated. Limited age- related neuro degenerative change reiterated at the left cerebral hemisphere. * 01/[address]: Acute/ subacute right frontotemporoparietal infarct. This involves both the LAURI and MCA territory. No hemorrhage. 2-3 mm midline shift towards the left. No significant change from prior examination. * 01/[address]: Expected changes status post right frontotemporoparietal infarct now with cortical laminar necrosis. No hemorrhage. Minimal midline shift. Medications: * Norvasc 10 mg QD * Lisinopril 5 mg QD * ASA 81 mg QD * Plavix 75 mg QD * discontinued (01/16/18) Valproate 500 mg IV Q12h due to elevated liver enzymes * Seroquel 25 mg QD * Fluoxetine 20 mg QD * Zinc 220 mg QD * Tylenol 975mg po q6h prn 2.) UTI * UA: +1 Leuk esterase * Urine culture: Klebsiella Pneumoniae * Ciprofloxacin 400 mg in 200 mls @ 133 mls/hr IVPB Q12H [facility]LDO * Stop date: 01/31/18 * Florastor 250 PO BID 3.) Constipation - resolved * CT abdomen and pelvis without contrast: 1. Constipation with fecal stasis in the sigmoid colon and rectum. No evidence of bowel obstruction. 2. No acute abdominal or pelvic abnormality. * On colace BID * gave 1 dose of miralax today - will advance if needed 4.) Vaginal yeast infection - resolved * Diflucan 200 mg PO once 5.) Seasonal Allergies * Claritin PRN * Visine PRN * Saline Nasal Lucan * Mucinex x1 dose on 01/22 6.) Heavy alcohol use * Counseled on cessation 7.) Hyperlipidemia * Cholesterol 210, Triglycerides 248, LDL 92, HDL 81 * Crestor 40 mg HS 8.) Prophylaxis * Pepcid 20 mg BID * Florastor 250 PO BID * SCDs * Claritin PRN allergy symptoms Case discussed with Dr. Shlomo Anaya PGY-1 <Lacy Keenan - Last Filed: 01/30/18 18:02> Objective - Vital Signs/Intake and Output Vital Signs (last 24 hours): Temp Pulse Resp BP Pulse Ox 98.4 F 71 20 102/63 97 01/30/18 07:00 01/30/18 07:00 01/30/18 07:00 01/30/18 07:00 01/30/18 07:00 Intake and Output: 01/30/18 01/30/18 06:59 18:59 Intake Total 520 400 Output Total 1250 350 Balance -730 50 - Medications Medications: Current Medications Acetaminophen (Tylenol 325mg Tab) 975 mg PO Q6 PRN PRN Reason: Pain, Mild (1-3) Last Admin: 01/30/18 10:39 Dose: 975 mg Amlodipine Besylate (Norvasc) 10 mg PO DAILY [facility] Last Admin: 01/30/18 10:13 Dose: 10 mg Ascorbic Acid (Vitamin C 500 Mg Tab) 500 mg PO DAILY [facility] Last Admin: 01/30/18 10:13 Dose: 500 mg Aspirin (Aspirin Chewable) 81 mg NG DAILY [facility] Last Admin: 01/30/18 10:13 Dose: 81 mg Clopidogrel Bisulfate (Plavix) 75 mg NG DAILY [facility] Last Admin: 01/30/18 10:13 Dose: 75 mg Docusate Sodium (Colace) 100 mg PO BID [facility] Last Admin: 01/30/18 17:49 Dose: 100 mg Famotidine (Pepcid) 20 mg PO BID [facility] Last Admin: 01/30/18 17:49 Dose: 20 mg Fluoxetine HCl (Prozac) 20 mg PO DAILY [facility] Stop: 02/07/18 18:14 Last Admin: 01/30/18 10:13 Dose: 20 mg Folic Acid (Folic Acid) 1 mg PO DAILY [facility] Last Admin: 01/30/18 10:13 Dose: 1 mg Lisinopril (Zestril) 5 mg PO DAILY [facility] Last Admin: 01/30/18 10:14 Dose: 5 mg Loratadine (Claritin) 10 mg PO DAILY PRN PRN Reason: Allergy symptoms Last Admin: 01/29/18 11:35 Dose: 10 mg Magnesium Oxide (Mag-Ox) 400 mg PO BID [facility] Last Admin: 01/30/18 17:49 Dose: 400 mg Ondansetron HCl (Zofran Inj) 4 mg IVP DAILY@ONCE PRN PRN Reason: Nausea/Vomiting Last Admin: 01/20/18 22:52 Dose: 4 mg Polyethylene Glycol (Miralax) 17 gm PO DAILY PRN PRN Reason: Constipation Quetiapine Fumarate (Seroquel) 25 mg PO DAILY [facility] Last Admin: 01/30/18 10:13 Dose: 25 mg Rosuvastatin Calcium (Crestor) 40 mg PO HS [facility] Last Admin: 01/29/18 21:00 Dose: 40 mg Saccharomyces Boulardii (Florastor) 250 mg PO BID [facility] Last Admin: 01/30/18 17:49 Dose: 250 mg Sodium Chloride ([place] Baby Saline 30 Ml) 0 ml JYOTHI Q4H [facility] Last Admin: 01/30/18 17:49 Dose: 2 sprays Tetrahydrozoline HCl/Zinc Sulfate (Visine 0.05% Opht Soln) 2 ml OD Q4H PRN PRN Reason: itchy eyes Last Admin: 01/23/18 09:14 Dose: 1 drop Zinc Sulfate (Zinc Sulfate 220 Mg Cap) 220 mg PO DAILY [facility] Last Admin: 01/30/18 10:13 Dose: 220 mg - Labs Labs: 01/26/18 06:58 01/26/18 06:58 PT 12.2 SECONDS (9.7-12.2) 01/04/18 11:43 INR 1.1 01/04/18 11:43 APTT 26 SECONDS (21-34) 01/04/18 11:43 Attending/Attestation - Attestation I have personally seen and examined this patient.: Yes I have fully participated in the care of the patient.: Yes I have reviewed all pertinent clinical information, including history, physical exam and plan: Yes Notes (Text): No changes no complain 01/30/18 18:02
--- NOTE | 2018-01-30 08:14 | CP.PCM.PN ---
Subjective - Date & Time of Evaluation Date of Evaluation: 01/30/18 Time of Evaluation: 08:14 - Subjective Subjective: Ms. Bui is seen and examined at the bedside. She remains alert, oriented. She denies any headache, dizziness, nausea, or vomiting. She further states of feeling positive with her physical therapy.She is able to follow simple commands, with left facial droop, left side hemiplegia, and left side neglect. She is excited of her supplement ensure. She is able to feed herself independently. She has bilateral SCD on her lower extremities.She remains on telesitter for patient safety. There was no untoward events overnight. Objective - Vital Signs/Intake and Output Vital Signs (last 24 hours): Temp Pulse Resp BP Pulse Ox 98.4 F 71 20 102/63 97 01/30/18 07:00 01/30/18 07:00 01/30/18 07:00 01/30/18 07:00 01/30/18 07:00 Intake and Output: 01/30/18 01/30/18 06:59 18:59 Intake Total 520 Output Total 1250 Balance -730 - Medications Medications: Current Medications Acetaminophen (Tylenol 325mg Tab) 975 mg PO Q6 PRN PRN Reason: Pain, Mild (1-3) Last Admin: 01/29/18 21:45 Dose: 975 mg Amlodipine Besylate (Norvasc) 10 mg PO DAILY [facility] Last Admin: 01/29/18 09:34 Dose: 10 mg Ascorbic Acid (Vitamin C 500 Mg Tab) 500 mg PO DAILY [facility] Last Admin: 01/29/18 09:33 Dose: 500 mg Aspirin (Aspirin Chewable) 81 mg NG DAILY [facility] Last Admin: 01/29/18 09:33 Dose: 81 mg Clopidogrel Bisulfate (Plavix) 75 mg NG DAILY [facility] Last Admin: 01/29/18 09:33 Dose: 75 mg Docusate Sodium (Colace) 100 mg PO BID [facility] Last Admin: 01/29/18 18:47 Dose: Not Given Famotidine (Pepcid) 20 mg PO BID [facility] Last Admin: 01/29/18 18:46 Dose: 20 mg Fluoxetine HCl (Prozac) 20 mg PO DAILY [facility] Stop: 02/07/18 18:14 Last Admin: 01/29/18 09:34 Dose: 20 mg Folic Acid (Folic Acid) 1 mg PO DAILY [facility] Last Admin: 01/29/18 09:34 Dose: 1 mg Lisinopril (Zestril) 5 mg PO DAILY [facility] Last Admin: 01/29/18 09:34 Dose: 5 mg Loratadine (Claritin) 10 mg PO DAILY PRN PRN Reason: Allergy symptoms Last Admin: 01/29/18 11:35 Dose: 10 mg Magnesium Oxide (Mag-Ox) 400 mg PO BID [facility] Last Admin: 01/29/18 18:46 Dose: 400 mg Ondansetron HCl (Zofran Inj) 4 mg IVP DAILY@ONCE PRN PRN Reason: Nausea/Vomiting Last Admin: 01/20/18 22:52 Dose: 4 mg Polyethylene Glycol (Miralax) 17 gm PO DAILY PRN PRN Reason: Constipation Quetiapine Fumarate (Seroquel) 25 mg PO DAILY [facility] Last Admin: 01/29/18 09:33 Dose: 25 mg Rosuvastatin Calcium (Crestor) 40 mg PO HS [facility] Last Admin: 01/29/18 21:00 Dose: 40 mg Saccharomyces Boulardii (Florastor) 250 mg PO BID [facility] Last Admin: 01/29/18 18:46 Dose: 250 mg Sodium Chloride ([place] Baby Saline 30 Ml) 0 ml JYOTHI Q4H [facility] Last Admin: 01/30/18 04:00 Dose: Not Given Tetrahydrozoline HCl/Zinc Sulfate (Visine 0.05% Opht Soln) 2 ml OD Q4H PRN PRN Reason: itchy eyes Last Admin: 01/23/18 09:14 Dose: 1 drop Zinc Sulfate (Zinc Sulfate 220 Mg Cap) 220 mg PO DAILY [facility] Last Admin: 01/29/18 09:33 Dose: 220 mg - Labs Labs: 01/26/18 06:58 01/26/18 06:58 PT 12.2 SECONDS (9.7-12.2) 01/04/18 11:43 INR 1.1 01/04/18 11:43 APTT 26 SECONDS (21-34) 01/04/18 11:43 - Constitutional Appears: No Acute Distress - Head Exam Head Exam: NORMAL INSPECTION - Neurological Exam Neurological Exam: Alert, Awake, Oriented x3 Neuro motor strength exam: Left Upper Extremity: 0, Right Upper Extremity: 4, Left Lower Extremity: 3, Right Lower Extremity: 4 Additional comments: Neurological unchanged from previous examination. Assessment and Plan (1) CVA (cerebral vascular accident) Assessment & Plan: Case discussed with Dr. Castillo, continue all current medical, physical, occupational, and speech therapies. Recommend head of bed elevated, blood pressure and glycemic control.If the patient's mental status decline, please repeat CT scan of the head without contrast. Status: Acute
[2018-01-30] MEDS: Magnesium Oxide 400 mg Tab UD PO SCH ×2 (10:14→17:49)
[2018-01-30] MEDS: Saccharomyces Boulardi 250 mg Cap PO SCH ×2 (10:14→17:49)
--- NOTE | 2018-01-31 03:45 | CP.PCM.PN ---
<Hannah May - Last Filed: 01/31/18 03:43> Subjective - Date & Time of Evaluation Date of Evaluation: 01/31/18 Time of Evaluation: 03:44 - Subjective Subjective: Progress note for Dr. Keenan Patient seen and examined at bedside. Patient is able to feed herself. Patient had no acute events overnight. Patient denied fever, chills, nausea, vomiting, edema of lower extremities. Objective - Vital Signs/Intake and Output Vital Signs (last 24 hours): Temp Pulse Resp BP Pulse Ox 98.2 F 83 20 96/60 L 98 01/30/18 23:10 01/30/18 23:10 01/30/18 23:10 01/30/18 23:10 01/30/18 23:10 Intake and Output: 01/30/18 01/31/18 18:59 06:59 Intake Total 400 320 Output Total 350 Balance 50 320 - Medications Medications: Current Medications Acetaminophen (Tylenol 325mg Tab) 975 mg PO Q6 PRN PRN Reason: Pain, Mild (1-3) Last Admin: 01/30/18 22:05 Dose: 975 mg Amlodipine Besylate (Norvasc) 10 mg PO DAILY [facility] Last Admin: 01/30/18 10:13 Dose: 10 mg Ascorbic Acid (Vitamin C 500 Mg Tab) 500 mg PO DAILY [facility] Last Admin: 01/30/18 10:13 Dose: 500 mg Aspirin (Aspirin Chewable) 81 mg NG DAILY [facility] Last Admin: 01/30/18 10:13 Dose: 81 mg Clopidogrel Bisulfate (Plavix) 75 mg NG DAILY [facility] Last Admin: 01/30/18 10:13 Dose: 75 mg Docusate Sodium (Colace) 100 mg PO BID [facility] Last Admin: 01/30/18 17:49 Dose: 100 mg Famotidine (Pepcid) 20 mg PO BID [facility] Last Admin: 01/30/18 17:49 Dose: 20 mg Fluoxetine HCl (Prozac) 20 mg PO DAILY [facility] Stop: 02/07/18 18:14 Last Admin: 01/30/18 10:13 Dose: 20 mg Folic Acid (Folic Acid) 1 mg PO DAILY [facility] Last Admin: 01/30/18 10:13 Dose: 1 mg Lisinopril (Zestril) 5 mg PO DAILY [facility] Last Admin: 01/30/18 10:14 Dose: 5 mg Loratadine (Claritin) 10 mg PO DAILY PRN PRN Reason: Allergy symptoms Last Admin: 01/29/18 11:35 Dose: 10 mg Magnesium Oxide (Mag-Ox) 400 mg PO BID [facility] Last Admin: 01/30/18 17:49 Dose: 400 mg Ondansetron HCl (Zofran Inj) 4 mg IVP DAILY@ONCE PRN PRN Reason: Nausea/Vomiting Last Admin: 01/20/18 22:52 Dose: 4 mg Polyethylene Glycol (Miralax) 17 gm PO DAILY PRN PRN Reason: Constipation Quetiapine Fumarate (Seroquel) 25 mg PO DAILY [facility] Last Admin: 01/30/18 10:13 Dose: 25 mg Rosuvastatin Calcium (Crestor) 40 mg PO HS [facility] Last Admin: 01/30/18 21:05 Dose: 40 mg Saccharomyces Boulardii (Florastor) 250 mg PO BID [facility] Last Admin: 01/30/18 17:49 Dose: 250 mg Sodium Chloride ([place] Baby Saline 30 Ml) 0 ml JYOTHI Q4H [facility] Last Admin: 01/30/18 21:05 Dose: 2 sprays Tetrahydrozoline HCl/Zinc Sulfate (Visine 0.05% Opht Soln) 2 ml OD Q4H PRN PRN Reason: itchy eyes Last Admin: 01/23/18 09:14 Dose: 1 drop Zinc Sulfate (Zinc Sulfate 220 Mg Cap) 220 mg PO DAILY [facility] Last Admin: 01/30/18 10:13 Dose: 220 mg - Labs Labs: 01/26/18 06:58 01/26/18 06:58 PT 12.2 SECONDS (9.7-12.2) 01/04/18 11:43 INR 1.1 01/04/18 11:43 APTT 26 SECONDS (21-34) 01/04/18 11:43 - Additional Findings Additional findings: Constitutional Appears: No Acute Distress - Head Exam Head Exam: ATRAUMATIC, NORMAL INSPECTION - Eye Exam Eye Exam: EOMI, Normal appearance - ENT Exam ENT Exam: Mucous Membranes Moist - Respiratory Exam Respiratory Exam: Clear to Ausculation Bilateral, NORMAL BREATHING PATTERN - Cardiovascular Exam Cardiovascular Exam: REGULAR RHYTHM, +S1, +S2 - GI/Abdominal Exam GI & Abdominal Exam: Soft, Normal Bowel Sounds. absent: Tenderness - Extremities Exam Extremities Exam: Normal Inspection - Neurological Exam Neurological Exam: Alert, Awake, Oriented x3 Neuro motor strength exam: Left Upper Extremity: 0, Right Upper Extremity: 4, Left Lower Extremity: 3, Right Lower Extremity: 4 - Psychiatric Exam Psychiatric exam: Normal Affect, Normal Mood - Skin Skin Exam: Normal Color, Warm Assessment and Plan - Assessment and Plan (Free Text) Assessment: - Assessment and Plan (Free Text) Assessment: Disposition: Patient needs acute rehab at discharge, however she has no insurance. Patient to have interview 01/30/18 for insurance approval. Will continue to work with case management for discharge plans. Per PT, patient can not use a wheelchair because she cannot transfer from bed to chair without max assistance. No changes at this time. 1.) Acute CVA affecting the right parietal/temporal area. * Dr. Castillo (neuro) consulted, help appreciated * Pureed/dysphagia diet * Head of bed elevation * PT/OT Imaging: * 01/[address]: Large hypodensity at the right brain suggestive of acute right MCA territory infarction. Suspicious for right dense MCA sign. If clinically warranted CTA of the head is suggested to evaluate for right MCA occlusion. * 01/04 CTA head and neck: Focal moderate stenosis approximately 75-80 percent noted at the origin of the right internal carotid artery with possible soft plaque. Mild approximately 55 percent stenosis noted at the origin of the left internal carotid artery. Diffuse atherosclerotic disease and calcification noted at the distal internal carotid arteries bilaterally with foci of mild stenosis noted at the supraclinoid portion of the left internal carotid artery. Diffuse approximately 50 percent stenosis of M1 segment of the right middle cerebral artery. Sharp cut off at the M1 bifurcation of the right middle cerebral artery noted. Occlusion of the anterior temporal M2 segment of the right middle cerebral artery at its origin. * 01/[address]: Acute infarct in the right frontal, parietal and temporal lobes. No acute hemorrhage. Midline shift to the left. Prior images have been requested for direct comparison. Comparison is made to prior report. * 01/04 Echo: Normal study with EF 65-70% * 01/[address]: Large right MCA and LAURI territory infarct changes which involve a large portion of the right cerebral hemisphere. The infarct exerts considerable mass effect with overlying sulcal effacement and compressive effects on the right lateral ventricle particularly the right temporal horn with mild [id number] midline shift. No evidence of acute intracranial hemorrhage. Mild underlying chronic white matter ischemic changes seen left cerebral hemisphere as well. No obstructive hydrocephalus. * 01/05 MRI Brain: Acute infarct changes involving a good portion of the right cerebral hemisphere (distal branches of the right middle cerebral artery and anterior cerebral nor arteries). Questionable early hemorrhagic conversion changes right basal ganglia evidenced by foci of dark T2 signal in these locations on gradient echo sequence with isointense T1 signal. Persistent mass effect with mild midline shift. HEMORRHAGE: Questionable early hemorrhagic conversion changes right basal ganglia evidenced by foci of dark T2 signal in these locations on gradient echo sequence with isointense T1 signal * 01/05 Lower extremity US: negative for DVT * 01/[address]: Stable large right renal infarcted involving the right anterior middle cerebral artery territories as discussed above with stable mass effect effacing the sulci of the right cerebral hemisphere in causing a limited leftward some fall seen shift of 3-4 mm once again. No interval intracranial hemorrhage or expansion of the infarcted territory appreciated. Limited age- related neuro degenerative change reiterated at the left cerebral hemisphere. * 01/[address]: Acute/ subacute right frontotemporoparietal infarct. This involves both the LAURI and MCA territory. No hemorrhage. 2-3 mm midline shift towards the left. No significant change from prior examination. * 01/[address]: Expected changes status post right frontotemporoparietal infarct now with cortical laminar necrosis. No hemorrhage. Minimal midline shift. Medications: * Norvasc 10 mg QD * Lisinopril 5 mg QD * ASA 81 mg QD * Plavix 75 mg QD * discontinued (01/16/18) Valproate 500 mg IV Q12h due to elevated liver enzymes * Seroquel 25 mg QD * Fluoxetine 20 mg QD * Zinc 220 mg QD * Tylenol 975mg po q6h prn 2.) UTI * UA: +1 Leuk esterase * Urine culture: Klebsiella Pneumoniae * Ciprofloxacin 400 mg in 200 mls @ 133 mls/hr IVPB Q12H [facility]O * Stop date: 01/31/18 * Florastor 250 PO BID 3.) Constipation - resolved * CT abdomen and pelvis without contrast: 1. Constipation with fecal stasis in the sigmoid colon and rectum. No evidence of bowel obstruction. 2. No acute abdominal or pelvic abnormality. * On colace BID * gave 1 dose of miralax today - will advance if needed 4.) Vaginal yeast infection - resolved * Diflucan 200 mg PO once 5.) Seasonal Allergies * Claritin PRN * Visine PRN * Saline Nasal [place] * Mucinex x1 dose on 01/22 6.) Heavy alcohol use * Counseled on cessation 7.) Hyperlipidemia * Cholesterol 210, Triglycerides 248, LDL 92, HDL 81 * Crestor 40 mg HS 8.) Prophylaxis * Pepcid 20 mg BID * Florastor 250 PO BID * SCDs * Claritin PRN allergy symptoms Case discussed with Dr. Shlomo Young Eng, DO PGY1 <Lacy Keenan - Last Filed: 02/01/18 15:46> Objective - Vital Signs/Intake and Output Vital Signs (last 24 hours): Temp Pulse Resp BP Pulse Ox 97.9 F 75 20 131/83 100 02/01/18 07:00 02/01/18 07:00 02/01/18 07:00 02/01/18 07:00 02/01/18 07:00 Intake and Output: 02/01/18 02/01/18 06:59 18:59 Intake Total 380 Output Total 600 Balance -600 380 - Medications Medications: Current Medications Acetaminophen (Tylenol 325mg Tab) 975 mg PO Q6 PRN PRN Reason: Pain, Mild (1-3) Last Admin: 02/01/18 15:16 Dose: 975 mg Amlodipine Besylate (Norvasc) 10 mg PO DAILY [facility] Last Admin: 02/01/18 09:38 Dose: 10 mg Ascorbic Acid (Vitamin C 500 Mg Tab) 500 mg PO DAILY [facility] Last Admin: 02/01/18 09:39 Dose: 500 mg Aspirin (Aspirin Chewable) 81 mg NG DAILY [facility] Last Admin: 02/01/18 09:38 Dose: 81 mg Clopidogrel Bisulfate (Plavix) 75 mg NG DAILY [facility] Last Admin: 02/01/18 09:38 Dose: 75 mg Docusate Sodium (Colace) 100 mg PO BID [facility] Last Admin: 02/01/18 09:38 Dose: 100 mg Famotidine (Pepcid) 20 mg PO BID [facility] Last Admin: 02/01/18 09:38 Dose: 20 mg Fluoxetine HCl (Prozac) 20 mg PO DAILY [facility] Stop: 02/07/18 18:14 Last Admin: 02/01/18 11:00 Dose: 20 mg Folic Acid (Folic Acid) 1 mg PO DAILY [facility] Last Admin: 02/01/18 09:38 Dose: 1 mg Lisinopril (Zestril) 5 mg PO DAILY [facility] Last Admin: 02/01/18 09:38 Dose: 5 mg Loratadine (Claritin) 10 mg PO DAILY PRN PRN Reason: Allergy symptoms Last Admin: 02/01/18 09:39 Dose: 10 mg Magnesium Oxide (Mag-Ox) 400 mg PO BID [facility] Last Admin: 02/01/18 09:38 Dose: 400 mg Ondansetron HCl (Zofran Inj) 4 mg IVP DAILY@ONCE PRN PRN Reason: Nausea/Vomiting Last Admin: 01/20/18 22:52 Dose: 4 mg Polyethylene Glycol (Miralax) 17 gm PO DAILY PRN PRN Reason: Constipation Quetiapine Fumarate (Seroquel) 25 mg PO DAILY [facility] Last Admin: 02/01/18 09:38 Dose: 25 mg Rosuvastatin Calcium (Crestor) 40 mg PO HS [facility] Last Admin: 01/31/18 21:11 Dose: 40 mg Saccharomyces Boulardii (Florastor) 250 mg PO BID [facility] Last Admin: 02/01/18 09:38 Dose: 250 mg Sodium Chloride ([place] Baby Saline 30 Ml) 0 ml JYOTHI Q4H [facility] Last Admin: 02/01/18 13:30 Dose: Not Given Tetrahydrozoline HCl/Zinc Sulfate (Visine 0.05% Opht Soln) 2 ml OD Q4H PRN PRN Reason: itchy eyes Last Admin: 01/23/18 09:14 Dose: 1 drop Zinc Sulfate (Zinc Sulfate 220 Mg Cap) 220 mg PO DAILY [facility] Last Admin: 02/01/18 09:39 Dose: 220 mg - Labs Labs: 01/26/18 06:58 01/26/18 06:58 PT 12.2 SECONDS (9.7-12.2) 01/04/18 11:43 INR 1.1 01/04/18 11:43 APTT 26 SECONDS (21-34) 01/04/18 11:43 Attending/Attestation - Attestation I have personally seen and examined this patient.: No I have fully participated in the care of the patient.: Yes I have reviewed all pertinent clinical information, including history, physical exam and plan: Yes
[2018-01-31] MEDS: Sodium Chloride Nasal 0.65% Soln (30ml) NAS SCH ×6 (04:00→20:00)
[2018-01-31] MEDS: Saccharomyces Boulardi 250 mg Cap PO SCH ×2 (09:29→18:02)
[2018-01-31] MEDS: Magnesium Oxide 400 mg Tab UD PO SCH ×2 (09:30→18:02)
[2018-02-01] MEDS: Sodium Chloride Nasal 0.65% Soln (30ml) NAS SCH ×6 (00:14→20:22)
--- NOTE | 2018-02-01 05:30 | CP.PCM.PN ---
<Hannah May - Last Filed: 02/01/18 05:31> Subjective - Date & Time of Evaluation Date of Evaluation: 02/01/18 Time of Evaluation: 05:30 - Subjective Subjective: Progress note for Dr. Keenan Patient seen and examined at bedside. Patient is able to feed herself. Patient had no acute events overnight. Patient denied fever, chills, nausea, vomiting, edema of lower extremities. Objective - Vital Signs/Intake and Output Vital Signs (last 24 hours): Temp Pulse Resp BP Pulse Ox 97.4 F L 80 20 105/65 97 01/31/18 23:10 01/31/18 23:10 01/31/18 23:10 01/31/18 23:10 01/31/18 23:10 Intake and Output: 01/31/18 02/01/18 18:59 06:59 Output Total 400 Balance -400 - Medications Medications: Current Medications Acetaminophen (Tylenol 325mg Tab) 975 mg PO Q6 PRN PRN Reason: Pain, Mild (1-3) Last Admin: 01/31/18 21:44 Dose: 975 mg Amlodipine Besylate (Norvasc) 10 mg PO DAILY [facility] Last Admin: 01/31/18 09:30 Dose: 10 mg Ascorbic Acid (Vitamin C 500 Mg Tab) 500 mg PO DAILY [facility] Last Admin: 01/31/18 09:30 Dose: 500 mg Aspirin (Aspirin Chewable) 81 mg NG DAILY [facility] Last Admin: 01/31/18 09:29 Dose: 81 mg Clopidogrel Bisulfate (Plavix) 75 mg NG DAILY [facility] Last Admin: 01/31/18 09:30 Dose: 75 mg Docusate Sodium (Colace) 100 mg PO BID [facility] Last Admin: 01/31/18 18:02 Dose: 100 mg Famotidine (Pepcid) 20 mg PO BID [facility] Last Admin: 01/31/18 18:02 Dose: 20 mg Fluoxetine HCl (Prozac) 20 mg PO DAILY [facility] Stop: 02/07/18 18:14 Last Admin: 01/31/18 09:30 Dose: 20 mg Folic Acid (Folic Acid) 1 mg PO DAILY [facility] Last Admin: 01/31/18 09:29 Dose: 1 mg Lisinopril (Zestril) 5 mg PO DAILY [facility] Last Admin: 01/31/18 09:30 Dose: 5 mg Loratadine (Claritin) 10 mg PO DAILY PRN PRN Reason: Allergy symptoms Last Admin: 01/29/18 11:35 Dose: 10 mg Magnesium Oxide (Mag-Ox) 400 mg PO BID [facility] Last Admin: 01/31/18 18:02 Dose: 400 mg Ondansetron HCl (Zofran Inj) 4 mg IVP DAILY@ONCE PRN PRN Reason: Nausea/Vomiting Last Admin: 01/20/18 22:52 Dose: 4 mg Polyethylene Glycol (Miralax) 17 gm PO DAILY PRN PRN Reason: Constipation Quetiapine Fumarate (Seroquel) 25 mg PO DAILY [facility] Last Admin: 01/31/18 09:30 Dose: 25 mg Rosuvastatin Calcium (Crestor) 40 mg PO HS [facility] Last Admin: 01/31/18 21:11 Dose: 40 mg Saccharomyces Boulardii (Florastor) 250 mg PO BID [facility] Last Admin: 01/31/18 18:02 Dose: 250 mg Sodium Chloride ([place] Baby Saline 30 Ml) 0 ml JYOTHI Q4H [facility] Last Admin: 02/01/18 00:14 Dose: 1 sprays Tetrahydrozoline HCl/Zinc Sulfate (Visine 0.05% Opht Soln) 2 ml OD Q4H PRN PRN Reason: itchy eyes Last Admin: 01/23/18 09:14 Dose: 1 drop Zinc Sulfate (Zinc Sulfate 220 Mg Cap) 220 mg PO DAILY [facility] Last Admin: 01/31/18 09:32 Dose: 220 mg - Labs Labs: 01/26/18 06:58 01/26/18 06:58 PT 12.2 SECONDS (9.7-12.2) 01/04/18 11:43 INR 1.1 01/04/18 11:43 APTT 26 SECONDS (21-34) 01/04/18 11:43 - Additional Findings Additional findings: Constitutional Appears: No Acute Distress - Head Exam Head Exam: ATRAUMATIC, NORMAL INSPECTION - Eye Exam Eye Exam: EOMI, Normal appearance - ENT Exam ENT Exam: Mucous Membranes Moist - Respiratory Exam Respiratory Exam: Clear to Ausculation Bilateral, NORMAL BREATHING PATTERN - Cardiovascular Exam Cardiovascular Exam: REGULAR RHYTHM, +S1, +S2 - GI/Abdominal Exam GI & Abdominal Exam: Soft, Normal Bowel Sounds. absent: Tenderness - Extremities Exam Extremities Exam: Normal Inspection - Neurological Exam Neurological Exam: Alert, Awake, Oriented x3 Neuro motor strength exam: Left Upper Extremity: 0, Right Upper Extremity: 4, Left Lower Extremity: 3, Right Lower Extremity: 4 - Psychiatric Exam Psychiatric exam: Normal Affect, Normal Mood - Skin Skin Exam: Normal Color, Warm Assessment and Plan - Assessment and Plan (Free Text) Assessment: Disposition: Patient needs acute rehab at discharge, however she has no insurance. Patient to have interview 01/30/18 for insurance approval. Will continue to work with case management for discharge plans. Per PT, patient can not use a wheelchair because she cannot transfer from bed to chair without max assistance. No changes at this time. 1.) Acute CVA affecting the right parietal/temporal area. * Dr. Castillo (neuro) consulted, help appreciated * Pureed/dysphagia diet * Head of bed elevation * PT/OT Imaging: * 01/[address]: Large hypodensity at the right brain suggestive of acute right MCA territory infarction. Suspicious for right dense MCA sign. If clinically warranted CTA of the head is suggested to evaluate for right MCA occlusion. * 01/04 CTA head and neck: Focal moderate stenosis approximately 75-80 percent noted at the origin of the right internal carotid artery with possible soft plaque. Mild approximately 55 percent stenosis noted at the origin of the left internal carotid artery. Diffuse atherosclerotic disease and calcification noted at the distal internal carotid arteries bilaterally with foci of mild stenosis noted at the supraclinoid portion of the left internal carotid artery. Diffuse approximately 50 percent stenosis of M1 segment of the right middle cerebral artery. Sharp cut off at the M1 bifurcation of the right middle cerebral artery noted. Occlusion of the anterior temporal M2 segment of the right middle cerebral artery at its origin. * 01/[address]: Acute infarct in the right frontal, parietal and temporal lobes. No acute hemorrhage. Midline shift to the left. Prior images have been requested for direct comparison. Comparison is made to prior report. * 01/04 Echo: Normal study with EF 65-70% * 01/[address]: Large right MCA and LAURI territory infarct changes which involve a large portion of the right cerebral hemisphere. The infarct exerts considerable mass effect with overlying sulcal effacement and compressive effects on the right lateral ventricle particularly the right temporal horn with mild [id number] midline shift. No evidence of acute intracranial hemorrhage. Mild underlying chronic white matter ischemic changes seen left cerebral hemisphere as well. No obstructive hydrocephalus. * 01/05 MRI Brain: Acute infarct changes involving a good portion of the right cerebral hemisphere (distal branches of the right middle cerebral artery and anterior cerebral nor arteries). Questionable early hemorrhagic conversion changes right basal ganglia evidenced by foci of dark T2 signal in these locations on gradient echo sequence with isointense T1 signal. Persistent mass effect with mild midline shift. HEMORRHAGE: Questionable early hemorrhagic conversion changes right basal ganglia evidenced by foci of dark T2 signal in these locations on gradient echo sequence with isointense T1 signal * 01/05 Lower extremity US: negative for DVT * 01/[address]: Stable large right renal infarcted involving the right anterior middle cerebral artery territories as discussed above with stable mass effect effacing the sulci of the right cerebral hemisphere in causing a limited leftward some fall seen shift of 3-4 mm once again. No interval intracranial hemorrhage or expansion of the infarcted territory appreciated. Limited age- related neuro degenerative change reiterated at the left cerebral hemisphere. * 01/[address]: Acute/ subacute right frontotemporoparietal infarct. This involves both the LAURI and MCA territory. No hemorrhage. 2-3 mm midline shift towards the left. No significant change from prior examination. * 01/[address]: Expected changes status post right frontotemporoparietal infarct now with cortical laminar necrosis. No hemorrhage. Minimal midline shift. Medications: * Norvasc 10 mg QD * Lisinopril 5 mg QD * ASA 81 mg QD * Plavix 75 mg QD * discontinued (01/16/18) Valproate 500 mg IV Q12h due to elevated liver enzymes * Seroquel 25 mg QD * Fluoxetine 20 mg QD * Zinc 220 mg QD * Tylenol 975mg po q6h prn 2.) UTI * UA: +1 Leuk esterase * Urine culture: Klebsiella Pneumoniae * Ciprofloxacin 400 mg in 200 mls @ 133 mls/hr IVPB Q12H [facility] * Stop date: 01/31/18 * Florastor 250 PO BID 3.) Constipation - resolved * CT abdomen and pelvis without contrast: 1. Constipation with fecal stasis in the sigmoid colon and rectum. No evidence of bowel obstruction. 2. No acute abdominal or pelvic abnormality. * On colace BID * gave 1 dose of miralax today - will advance if needed 4.) Vaginal yeast infection - resolved * Diflucan 200 mg PO once 5.) Seasonal Allergies * Claritin PRN * Visine PRN * Saline Nasal Perry * Mucinex x1 dose on 01/22 6.) Heavy alcohol use * Counseled on cessation 7.) Hyperlipidemia * Cholesterol 210, Triglycerides 248, LDL 92, HDL 81 * Crestor 40 mg HS 8.) Prophylaxis * Pepcid 20 mg BID * Florastor 250 PO BID * SCDs * Claritin PRN allergy symptoms Case discussed with Dr. Shlomo May, DO PGY1 <Lacy Keenan - Last Filed: 02/01/18 15:49> Objective - Vital Signs/Intake and Output Vital Signs (last 24 hours): Temp Pulse Resp BP Pulse Ox 97.9 F 75 20 131/83 100 02/01/18 07:00 02/01/18 07:00 02/01/18 07:00 02/01/18 07:00 02/01/18 07:00 Intake and Output: 02/01/18 02/01/18 06:59 18:59 Intake Total 380 Output Total 600 Balance -600 380 - Medications Medications: Current Medications Acetaminophen (Tylenol 325mg Tab) 975 mg PO Q6 PRN PRN Reason: Pain, Mild (1-3) Last Admin: 02/01/18 15:16 Dose: 975 mg Amlodipine Besylate (Norvasc) 10 mg PO DAILY [facility] Last Admin: 02/01/18 09:38 Dose: 10 mg Ascorbic Acid (Vitamin C 500 Mg Tab) 500 mg PO DAILY [facility] Last Admin: 02/01/18 09:39 Dose: 500 mg Aspirin (Aspirin Chewable) 81 mg NG DAILY [facility] Last Admin: 02/01/18 09:38 Dose: 81 mg Clopidogrel Bisulfate (Plavix) 75 mg NG DAILY [facility] Last Admin: 02/01/18 09:38 Dose: 75 mg Docusate Sodium (Colace) 100 mg PO BID [facility] Last Admin: 02/01/18 09:38 Dose: 100 mg Famotidine (Pepcid) 20 mg PO BID [facility] Last Admin: 02/01/18 09:38 Dose: 20 mg Fluoxetine HCl (Prozac) 20 mg PO DAILY [facility] Stop: 02/07/18 18:14 Last Admin: 02/01/18 11:00 Dose: 20 mg Folic Acid (Folic Acid) 1 mg PO DAILY [facility] Last Admin: 02/01/18 09:38 Dose: 1 mg Lisinopril (Zestril) 5 mg PO DAILY [facility] Last Admin: 02/01/18 09:38 Dose: 5 mg Loratadine (Claritin) 10 mg PO DAILY PRN PRN Reason: Allergy symptoms Last Admin: 02/01/18 09:39 Dose: 10 mg Magnesium Oxide (Mag-Ox) 400 mg PO BID [facility] Last Admin: 02/01/18 09:38 Dose: 400 mg Ondansetron HCl (Zofran Inj) 4 mg IVP DAILY@ONCE PRN PRN Reason: Nausea/Vomiting Last Admin: 01/20/18 22:52 Dose: 4 mg Polyethylene Glycol (Miralax) 17 gm PO DAILY PRN PRN Reason: Constipation Quetiapine Fumarate (Seroquel) 25 mg PO DAILY [facility] Last Admin: 02/01/18 09:38 Dose: 25 mg Rosuvastatin Calcium (Crestor) 40 mg PO HS [facility] Last Admin: 01/31/18 21:11 Dose: 40 mg Saccharomyces Boulardii (Florastor) 250 mg PO BID [facility] Last Admin: 02/01/18 09:38 Dose: 250 mg Sodium Chloride ([place] Baby Saline 30 Ml) 0 ml JYOTHI Q4H [facility] Last Admin: 02/01/18 13:30 Dose: Not Given Tetrahydrozoline HCl/Zinc Sulfate (Visine 0.05% Opht Soln) 2 ml OD Q4H PRN PRN Reason: itchy eyes Last Admin: 01/23/18 09:14 Dose: 1 drop Zinc Sulfate (Zinc Sulfate 220 Mg Cap) 220 mg PO DAILY [facility] Last Admin: 02/01/18 09:39 Dose: 220 mg - Labs Labs: 01/26/18 06:58 01/26/18 06:58 PT 12.2 SECONDS (9.7-12.2) 01/04/18 11:43 INR 1.1 01/04/18 11:43 APTT 26 SECONDS (21-34) 01/04/18 11:43 Attending/Attestation - Attestation I have personally seen and examined this patient.: Yes I have fully participated in the care of the patient.: Yes I have reviewed all pertinent clinical information, including history, physical exam and plan: Yes Notes (Text): Seen and examined by me complaining of left arm and leg pain not responding to tylenol. Unable to sleep due to pain I agree with the documentation of the resident's notes Plan-Ultram at bedtime for pain 02/01/18 15:49
[2018-02-01] MEDS: Magnesium Oxide 400 mg Tab UD PO SCH ×2 (09:38→17:30)
[2018-02-01] MEDS: Saccharomyces Boulardi 250 mg Cap PO SCH ×2 (09:38→17:30)
[2018-02-02] MEDS: Sodium Chloride Nasal 0.65% Soln (30ml) NAS SCH ×6 (05:54→21:00)
--- NOTE | 2018-02-02 07:36 | CP.PCM.PN ---
Subjective - Date & Time of Evaluation Date of Evaluation: 02/02/18 Time of Evaluation: 07:36 - Subjective Subjective: Ms. Bui is seen and examined at the bedside. She remains alert, oriented. She denies any headache, dizziness, nausea, or vomiting. She further states of feeling positive with her physical therapy.She is able to follow simple commands, with left facial droop, left side hemiplegia, and left side neglect. She complains of muscle ache of her left side and prefer to lay on that side. She is able to move her lower extremities but weaker today in comparison from previous examination. There was no untoward events overnight. Objective - Vital Signs/Intake and Output Vital Signs (last 24 hours): Temp Pulse Resp BP Pulse Ox 98.5 F 82 20 101/65 96 02/01/18 23:10 02/01/18 23:10 02/01/18 23:10 02/01/18 23:10 02/01/18 23:10 Intake and Output: 02/02/18 02/02/18 06:59 18:59 Intake Total 480 Output Total 900 Balance -420 - Medications Medications: Current Medications Acetaminophen (Tylenol 325mg Tab) 975 mg PO Q6 PRN PRN Reason: Pain, Mild (1-3) Last Admin: 02/01/18 15:16 Dose: 975 mg Amlodipine Besylate (Norvasc) 10 mg PO DAILY [facility] Last Admin: 02/01/18 09:38 Dose: 10 mg Ascorbic Acid (Vitamin C 500 Mg Tab) 500 mg PO DAILY [facility] Last Admin: 02/01/18 09:39 Dose: 500 mg Aspirin (Aspirin Chewable) 81 mg NG DAILY [facility] Last Admin: 02/01/18 09:38 Dose: 81 mg Clopidogrel Bisulfate (Plavix) 75 mg NG DAILY [facility] Last Admin: 02/01/18 09:38 Dose: 75 mg Docusate Sodium (Colace) 100 mg PO BID [facility] Last Admin: 02/01/18 17:31 Dose: 100 mg Famotidine (Pepcid) 20 mg PO BID [facility] Last Admin: 02/01/18 17:31 Dose: 20 mg Fluoxetine HCl (Prozac) 20 mg PO DAILY [facility] Stop: 02/07/18 18:14 Last Admin: 02/01/18 11:00 Dose: 20 mg Folic Acid (Folic Acid) 1 mg PO DAILY [facility] Last Admin: 02/01/18 09:38 Dose: 1 mg Lisinopril (Zestril) 5 mg PO DAILY [facility] Last Admin: 02/01/18 09:38 Dose: 5 mg Loratadine (Claritin) 10 mg PO DAILY PRN PRN Reason: Allergy symptoms Last Admin: 02/01/18 09:39 Dose: 10 mg Magnesium Oxide (Mag-Ox) 400 mg PO BID [facility] Last Admin: 02/01/18 17:30 Dose: 400 mg Ondansetron HCl (Zofran Inj) 4 mg IVP DAILY@ONCE PRN PRN Reason: Nausea/Vomiting Last Admin: 01/20/18 22:52 Dose: 4 mg Polyethylene Glycol (Miralax) 17 gm PO DAILY PRN PRN Reason: Constipation Quetiapine Fumarate (Seroquel) 25 mg PO DAILY [facility] Last Admin: 02/01/18 09:38 Dose: 25 mg Rosuvastatin Calcium (Crestor) 40 mg PO [facility] Last Admin: 02/01/18 21:44 Dose: 40 mg Saccharomyces Boulardii (Florastor) 250 mg PO BID [facility] Last Admin: 02/01/18 17:30 Dose: 250 mg Sodium Chloride ([place] Baby Saline 30 Ml) 0 ml JYOTHI Q4H [facility] Last Admin: 02/02/18 05:54 Dose: 1 sprays Tetrahydrozoline HCl/Zinc Sulfate (Visine 0.05% Opht Soln) 2 ml OD Q4H PRN PRN Reason: itchy eyes Last Admin: 01/23/18 09:14 Dose: 1 drop Tramadol HCl (Ultram) 50 mg PO [facility] Last Admin: 02/01/18 21:44 Dose: 50 mg Zinc Sulfate (Zinc Sulfate 220 Mg Cap) 220 mg PO DAILY [facility] Last Admin: 02/01/18 09:39 Dose: 220 mg - Labs Labs: 01/26/18 06:58 01/26/18 06:58 PT 12.2 SECONDS (9.7-12.2) 01/04/18 11:43 INR 1.1 01/04/18 11:43 APTT 26 SECONDS (21-34) 01/04/18 11:43 - Constitutional Appears: No Acute Distress - Head Exam Head Exam: NORMAL INSPECTION - Neurological Exam Neurological Exam: Alert, Awake, Oriented x3 Neuro motor strength exam: Left Upper Extremity: 0, Right Upper Extremity: 5, Left Lower Extremity: 2/1, Right Lower Extremity: 5 Additional comments: left lower extremities is weaker today in comparison from previous examination. She is also laying on that side. Assessment and Plan (1) CVA (cerebral vascular accident) Assessment & Plan: Case discussed with Dr. Jacob, continue all current medical, physical, and occupational therapies. Recommend to let physical therapy work on her left side muscle aches. Recommend head of bed elevated, blood pressure and glycemic control. Status: Acute
[2018-02-02 08:06] LABS: BASO % 0.9 % (0.0-2.0); EOS # 0.3 K/uL (0.0-0.7); EOS % 5.7 % (0.0-4.0); LYMPH # 1.4 K/uL (1.0-4.3); LYMPH % 25.7 % (20.0-40.0); MEAN CELL VOLUME 93.5 fL (81.0-99.0); MEAN CORPUSCULAR HEMOGLOBIN 32.1 pg (27.0-31.0); MEAN CORPUSCULAR HGB CONC 34.3 g/dL (33.0-37.0); MEAN PLATELET VOLUME 8.5 fL (7.2-11.7); MONO # 0.6 K/uL (0.0-0.8); MONO % 10.5 % (0.0-10.0); NEUT # 3.1 K/uL (1.8-7.0); NEUT % 57.2 % (50.0-75.0); RBC 3.44 Mil/uL (3.80-5.20); RED CELL DISTRIBUTION WIDTH 14.2 % (11.5-14.5); WHITE BLOOD COUNT 5.4 K/uL (4.8-10.8)
[2018-02-02 08:50] LABS: ALBUMIN 3.3 g/dL (3.5-5.0); ALT/SGPT 25 U/L (9-52); AST/SGOT 25 U/L (14-36); BLOOD UREA NITROGEN 13 mg/dL (7-17); CALCIUM 9.6 mg/dl (8.6-10.4); GFR AFRICAN-AMERICAN > 60; GFR NON-AFRICAN AMERICAN > 60
--- NOTE | 2018-02-02 09:18 | CP.PCM.PN ---
<Eileen Anaya MoisésNicole - Last Filed: 02/02/18 14:36> Subjective - Date & Time of Evaluation Date of Evaluation: 02/02/18 Time of Evaluation: 07:00 - Subjective Subjective: Medicine Progress Notes: Patient was seen and examined at bedside in the AM. Patient states she spoke with Medicaid on Friday and patient states she will have another interview on February 18. Patient states she continues to have left sided pain. Patient continues to have paralysis of LUE and LLE. Patient states she had a bowel movement yesterday. She denies dizziness, fever, chills, chest pain, SOB, and swelling in the lower extremities. Objective - Vital Signs/Intake and Output Vital Signs (last 24 hours): Temp Pulse Resp BP Pulse Ox 98.5 F 70 18 124/79 97 02/02/18 07:45 02/02/18 07:45 02/02/18 07:45 02/02/18 07:45 02/02/18 07:45 Intake and Output: 02/02/18 02/02/18 06:59 18:59 Intake Total 480 Output Total 900 Balance -420 - Medications Medications: Current Medications Acetaminophen (Tylenol 325mg Tab) 975 mg PO Q6 PRN PRN Reason: Pain, Mild (1-3) Last Admin: 02/01/18 15:16 Dose: 975 mg Amlodipine Besylate (Norvasc) 10 mg PO DAILY [facility] Last Admin: 02/01/18 09:38 Dose: 10 mg Ascorbic Acid (Vitamin C 500 Mg Tab) 500 mg PO DAILY [facility] Last Admin: 02/01/18 09:39 Dose: 500 mg Aspirin (Aspirin Chewable) 81 mg NG DAILY [facility] Last Admin: 02/01/18 09:38 Dose: 81 mg Clopidogrel Bisulfate (Plavix) 75 mg NG DAILY [facility] Last Admin: 02/01/18 09:38 Dose: 75 mg Docusate Sodium (Colace) 100 mg PO BID [facility] Last Admin: 02/01/18 17:31 Dose: 100 mg Famotidine (Pepcid) 20 mg PO BID [facility] Last Admin: 02/01/18 17:31 Dose: 20 mg Fluoxetine HCl (Prozac) 20 mg PO DAILY [facility] Stop: 02/07/18 18:14 Last Admin: 02/01/18 11:00 Dose: 20 mg Folic Acid (Folic Acid) 1 mg PO DAILY [facility] Last Admin: 02/01/18 09:38 Dose: 1 mg Lisinopril (Zestril) 5 mg PO DAILY [facility] Last Admin: 02/01/18 09:38 Dose: 5 mg Loratadine (Claritin) 10 mg PO DAILY PRN PRN Reason: Allergy symptoms Last Admin: 02/01/18 09:39 Dose: 10 mg Magnesium Oxide (Mag-Ox) 400 mg PO BID [facility] Last Admin: 02/01/18 17:30 Dose: 400 mg Ondansetron HCl (Zofran Inj) 4 mg IVP DAILY@ONCE PRN PRN Reason: Nausea/Vomiting Last Admin: 01/20/18 22:52 Dose: 4 mg Polyethylene Glycol (Miralax) 17 gm PO DAILY PRN PRN Reason: Constipation Quetiapine Fumarate (Seroquel) 25 mg PO DAILY [facility] Last Admin: 02/01/18 09:38 Dose: 25 mg Rosuvastatin Calcium (Crestor) 40 mg PO [facility] Last Admin: 02/01/18 21:44 Dose: 40 mg Saccharomyces Boulardii (Florastor) 250 mg PO BID [facility] Last Admin: 02/01/18 17:30 Dose: 250 mg Sodium Chloride ([place] Baby Saline 30 Ml) 0 ml JYOTHI Q4H [facility] Last Admin: 02/02/18 05:54 Dose: 1 sprays Tetrahydrozoline HCl/Zinc Sulfate (Visine 0.05% Opht Soln) 2 ml OD Q4H PRN PRN Reason: itchy eyes Last Admin: 01/23/18 09:14 Dose: 1 drop Tramadol HCl (Ultram) 50 mg PO [facility] Last Admin: 02/01/18 21:44 Dose: 50 mg Zinc Sulfate (Zinc Sulfate 220 Mg Cap) 220 mg PO DAILY [facility] Last Admin: 02/01/18 09:39 Dose: 220 mg - Labs Labs: 02/02/18 07:58 02/02/18 07:58 PT 12.2 SECONDS (9.7-12.2) 01/04/18 11:43 INR 1.1 01/04/18 11:43 APTT 26 SECONDS (21-34) 01/04/18 11:43 - Constitutional Appears: No Acute Distress - Head Exam Head Exam: ATRAUMATIC, NORMAL INSPECTION - Eye Exam Eye Exam: EOMI, Normal appearance - ENT Exam ENT Exam: Mucous Membranes Moist - Respiratory Exam Respiratory Exam: Clear to Ausculation Bilateral, NORMAL BREATHING PATTERN - Cardiovascular Exam Cardiovascular Exam: REGULAR RHYTHM, +S1, +S2 - Neurological Exam Neurological Exam: Alert, Awake, Oriented x3 Neuro motor strength exam: Left Upper Extremity: 0, Right Upper Extremity: 4, Left Lower Extremity: 0, Right Lower Extremity: 4 - Psychiatric Exam Psychiatric exam: Normal Affect - Skin Skin Exam: Normal Color Assessment and Plan - Assessment and Plan (Free Text) Assessment: Disposition: Patient needs acute rehab at discharge, however she has no insurance. Patient to have interview 01/30/18 for insurance approval. Will continue to work with case management for discharge plans. Per PT, patient can not use a wheelchair because she cannot transfer from bed to chair without max assistance. No changes at this time. 1.) Acute CVA affecting the right parietal/temporal area. * Dr. Castillo (neuro) consulted, help appreciated * Pureed/dysphagia diet * Head of bed elevation * PT/OT Imaging: * 01/[address]: Large hypodensity at the right brain suggestive of acute right MCA territory infarction. Suspicious for right dense MCA sign. If clinically warranted CTA of the head is suggested to evaluate for right MCA occlusion. * 01/04 CTA head and neck: Focal moderate stenosis approximately 75-80 percent noted at the origin of the right internal carotid artery with possible soft plaque. Mild approximately 55 percent stenosis noted at the origin of the left internal carotid artery. Diffuse atherosclerotic disease and calcification noted at the distal internal carotid arteries bilaterally with foci of mild stenosis noted at the supraclinoid portion of the left internal carotid artery. Diffuse approximately 50 percent stenosis of M1 segment of the right middle cerebral artery. Sharp cut off at the M1 bifurcation of the right middle cerebral artery noted. Occlusion of the anterior temporal M2 segment of the right middle cerebral artery at its origin. * 01/[address]: Acute infarct in the right frontal, parietal and temporal lobes. No acute hemorrhage. Midline shift to the left. Prior images have been requested for direct comparison. Comparison is made to prior report. * 01/04 Echo: Normal study with EF 65-70% * 01/[address]: Large right MCA and LAURI territory infarct changes which involve a large portion of the right cerebral hemisphere. The infarct exerts considerable mass effect with overlying sulcal effacement and compressive effects on the right lateral ventricle particularly the right temporal horn with mild [id number] midline shift. No evidence of acute intracranial hemorrhage. Mild underlying chronic white matter ischemic changes seen left cerebral hemisphere as well. No obstructive hydrocephalus. * 01/05 MRI Brain: Acute infarct changes involving a good portion of the right cerebral hemisphere (distal branches of the right middle cerebral artery and anterior cerebral nor arteries). Questionable early hemorrhagic conversion changes right basal ganglia evidenced by foci of dark T2 signal in these locations on gradient echo sequence with isointense T1 signal. Persistent mass effect with mild midline shift. HEMORRHAGE: Questionable early hemorrhagic conversion changes right basal ganglia evidenced by foci of dark T2 signal in these locations on gradient echo sequence with isointense T1 signal * 01/05 Lower extremity US: negative for DVT * 01/[address]: Stable large right renal infarcted involving the right anterior middle cerebral artery territories as discussed above with stable mass effect effacing the sulci of the right cerebral hemisphere in causing a limited leftward some fall seen shift of 3-4 mm once again. No interval intracranial hemorrhage or expansion of the infarcted territory appreciated. Limited age- related neuro degenerative change reiterated at the left cerebral hemisphere. * 01/[address]: Acute/ subacute right frontotemporoparietal infarct. This involves both the LAURI and MCA territory. No hemorrhage. 2-3 mm midline shift towards the left. No significant change from prior examination. * 01/[address]: Expected changes status post right frontotemporoparietal infarct now with cortical laminar necrosis. No hemorrhage. Minimal midline shift. Medications: * Norvasc 10 mg QD * Lisinopril 5 mg QD * ASA 81 mg QD * Plavix 75 mg QD * discontinued (01/16/18) Valproate 500 mg IV Q12h due to elevated liver enzymes * Seroquel 25 mg QD * Fluoxetine 20 mg QD * Zinc 220 mg QD * Gabapentin 100mg TID * Tylenol 975mg po q6h prn 2.) UTI - resolved * UA: +1 Leuk esterase * Urine culture: Klebsiella Pneumoniae * Ciprofloxacin 400 mg in 200 mls @ 133 mls/hr IVPB Q12H REYNALDO * Stop date: 01/31/18 * Florastor 250 PO BID 3.) Constipation - resolved * CT abdomen and pelvis without contrast: 1. Constipation with fecal stasis in the sigmoid colon and rectum. No evidence of bowel obstruction. 2. No acute abdominal or pelvic abnormality. * On colace BID * gave 1 dose of miralax today - will advance if needed 4.) Vaginal yeast infection - resolved * Diflucan 200 mg PO once 5.) Seasonal Allergies * Claritin PRN * Visine PRN * Saline Nasal [place] * Mucinex x1 dose on 01/22 6.) Heavy alcohol use * Counseled on cessation 7.) Hyperlipidemia * Cholesterol 210, Triglycerides 248, LDL 92, HDL 81 * Crestor 40 mg HS 8.) Prophylaxis * Pepcid 20 mg BID * Florastor 250 PO BID * SCDs * Claritin PRN allergy symptoms Case discussed with Dr. Cherelle Anaya PGY-1 <Vitaliy Villarreal - Last Filed: 02/02/18 16:17> Objective - Vital Signs/Intake and Output Vital Signs (last 24 hours): Temp Pulse Resp BP Pulse Ox 98.5 F 70 18 124/79 97 02/02/18 07:45 02/02/18 07:45 02/02/18 07:45 02/02/18 07:45 02/02/18 07:45 Intake and Output: 02/02/18 02/02/18 06:59 18:59 Intake Total 480 Output Total 900 Balance -420 - Medications Medications: Current Medications Acetaminophen (Tylenol 325mg Tab) 975 mg PO Q6 PRN PRN Reason: Pain, Mild (1-3) Last Admin: 02/01/18 15:16 Dose: 975 mg Amlodipine Besylate (Norvasc) 10 mg PO DAILY [facility] Last Admin: 02/02/18 09:52 Dose: 10 mg Ascorbic Acid (Vitamin C 500 Mg Tab) 500 mg PO DAILY [facility] Last Admin: 02/02/18 09:52 Dose: 500 mg Aspirin (Aspirin Chewable) 81 mg NG DAILY [facility] Last Admin: 02/02/18 09:52 Dose: 81 mg Clopidogrel Bisulfate (Plavix) 75 mg NG DAILY [facility] Last Admin: 02/02/18 09:52 Dose: 75 mg Docusate Sodium (Colace) 100 mg PO BID [facility] Last Admin: 02/02/18 09:53 Dose: 100 mg Famotidine (Pepcid) 20 mg PO BID [facility] Last Admin: 02/02/18 09:52 Dose: 20 mg Fluoxetine HCl (Prozac) 20 mg PO DAILY [facility] Stop: 02/07/18 18:14 Last Admin: 02/02/18 09:53 Dose: 20 mg Folic Acid (Folic Acid) 1 mg PO DAILY [facility] Last Admin: 02/02/18 09:52 Dose: 1 mg Gabapentin (Neurontin) 100 mg PO TID [facility] Lisinopril (Zestril) 5 mg PO DAILY [facility] Last Admin: 02/02/18 09:52 Dose: 5 mg Loratadine (Claritin) 10 mg PO DAILY PRN PRN Reason: Allergy symptoms Last Admin: 02/02/18 11:23 Dose: 10 mg Magnesium Oxide (Mag-Ox) 400 mg PO BID [facility] Last Admin: 02/02/18 09:52 Dose: 400 mg Ondansetron HCl (Zofran Inj) 4 mg IVP DAILY@ONCE PRN PRN Reason: Nausea/Vomiting Last Admin: 01/20/18 22:52 Dose: 4 mg Polyethylene Glycol (Miralax) 17 gm PO DAILY PRN PRN Reason: Constipation Quetiapine Fumarate (Seroquel) 25 mg PO DAILY [facility] Last Admin: 02/02/18 09:52 Dose: 25 mg Rosuvastatin Calcium (Crestor) 40 mg PO HS [facility] Last Admin: 02/01/18 21:44 Dose: 40 mg Saccharomyces Boulardii (Florastor) 250 mg PO BID [facility] Last Admin: 02/02/18 09:52 Dose: 250 mg Sodium Chloride ([place] Baby Saline 30 Ml) 0 ml JYOTHI Q4H [facility] Last Admin: 02/02/18 11:23 Dose: Not Given Tetrahydrozoline HCl/Zinc Sulfate (Visine 0.05% Opht Soln) 2 ml OD Q4H PRN PRN Reason: itchy eyes Last Admin: 01/23/18 09:14 Dose: 1 drop Tramadol HCl (Ultram) 50 mg PO HS [facility] Last Admin: 02/01/18 21:44 Dose: 50 mg Zinc Sulfate (Zinc Sulfate 220 Mg Cap) 220 mg PO DAILY [facility] Last Admin: 02/02/18 09:52 Dose: 220 mg - Labs Labs: 02/02/18 07:58 02/02/18 07:58 PT 12.2 SECONDS (9.7-12.2) 01/04/18 11:43 INR 1.1 01/04/18 11:43 APTT 26 SECONDS (21-34) 01/04/18 11:43 Attending/Attestation - Attestation I have personally seen and examined this patient.: Yes I have fully participated in the care of the patient.: Yes I have reviewed all pertinent clinical information, including history, physical exam and plan: Yes Notes (Text): 02/02/18 16:16 Medical attending: Patient was seen and examined by me, agrees the above note by medical center manager. I suspect the patient was be very lonely in the hospital. Every time we meet her she wants to have a very long extended discussion for which we do have. She explained to us that she was having left arm numbness and tingling that was causing her severe discomfort. We'll try to place the patient on gabapentin very low dose at this time of 100 by mouth 3 times a day - we will probably increase this to see if it gives her any relief In the meantime we continue to encourage physical therapy participation. She had a discussion with Medicaid officials earlier last week him being hopefully she'll qualify for something could eventually go to a rehabilitation program Thank you very much, Vitaliy Villarreal
[2018-02-02] MEDS: Magnesium Oxide 400 mg Tab UD PO SCH ×2 (09:52→17:20)
[2018-02-02] MEDS: Saccharomyces Boulardi 250 mg Cap PO SCH ×2 (09:52→17:20)
[2018-02-03] MEDS: Sodium Chloride Nasal 0.65% Soln (30ml) NAS SCH ×5 (04:04→16:22)
--- NOTE | 2018-02-03 07:02 | CP.PCM.PN ---
<Eileen Anaya - Last Filed: 02/03/18 14:07> Subjective - Date & Time of Evaluation Date of Evaluation: 02/03/18 Time of Evaluation: 07:00 - Subjective Subjective: Medicine Progress Notes: Patient was seen and examined at bedside in the AM. Patient states she spoke with Medicaid on Friday and patient states she will have another interview on February 19. Patient states she continues to have left sided pain. Patient continues to have paralysis of LUE and LLE. She denies dizziness, fever, chills , chest pain, SOB, and swelling in the lower extremities. Objective - Vital Signs/Intake and Output Vital Signs (last 24 hours): Temp Pulse Resp BP Pulse Ox 97.5 F L 82 20 109/70 98 02/02/18 23:10 02/02/18 23:10 02/02/18 23:10 02/02/18 23:10 02/02/18 23:10 Intake and Output: 02/03/18 02/03/18 06:59 18:59 Output Total 400 Balance -400 - Medications Medications: Current Medications Acetaminophen (Tylenol 325mg Tab) 975 mg PO Q6 PRN PRN Reason: Pain, Mild (1-3) Last Admin: 02/02/18 16:39 Dose: 975 mg Amlodipine Besylate (Norvasc) 10 mg PO DAILY [facility] Last Admin: 02/02/18 09:52 Dose: 10 mg Ascorbic Acid (Vitamin C 500 Mg Tab) 500 mg PO DAILY [facility] Last Admin: 02/02/18 09:52 Dose: 500 mg Aspirin (Aspirin Chewable) 81 mg NG DAILY [facility] Last Admin: 02/02/18 09:52 Dose: 81 mg Clopidogrel Bisulfate (Plavix) 75 mg NG DAILY [facility] Last Admin: 02/02/18 09:52 Dose: 75 mg Docusate Sodium (Colace) 100 mg PO BID [facility] Last Admin: 02/02/18 17:20 Dose: 100 mg Famotidine (Pepcid) 20 mg PO BID [facility] Last Admin: 02/02/18 17:20 Dose: 20 mg Fluoxetine HCl (Prozac) 20 mg PO DAILY [facility] Stop: 02/07/18 18:14 Last Admin: 02/02/18 09:53 Dose: 20 mg Folic Acid (Folic Acid) 1 mg PO DAILY [facility] Last Admin: 02/02/18 09:52 Dose: 1 mg Gabapentin (Neurontin) 100 mg PO TID [facility] Last Admin: 02/02/18 17:20 Dose: 100 mg Lisinopril (Zestril) 5 mg PO DAILY [facility] Last Admin: 02/02/18 09:52 Dose: 5 mg Loratadine (Claritin) 10 mg PO DAILY PRN PRN Reason: Allergy symptoms Last Admin: 02/02/18 11:23 Dose: 10 mg Magnesium Oxide (Mag-Ox) 400 mg PO BID [facility] Last Admin: 02/02/18 17:20 Dose: 400 mg Ondansetron HCl (Zofran Inj) 4 mg IVP DAILY@ONCE PRN PRN Reason: Nausea/Vomiting Last Admin: 01/20/18 22:52 Dose: 4 mg Polyethylene Glycol (Miralax) 17 gm PO DAILY PRN PRN Reason: Constipation Quetiapine Fumarate (Seroquel) 25 mg PO DAILY [facility] Last Admin: 02/02/18 09:52 Dose: 25 mg Rosuvastatin Calcium (Crestor) 40 mg PO [facility] Last Admin: 02/02/18 21:23 Dose: 40 mg Saccharomyces Boulardii (Florastor) 250 mg PO BID [facility] Last Admin: 02/02/18 17:20 Dose: 250 mg Sodium Chloride ([place] Baby Saline 30 Ml) 0 ml JYOTHI Q4H [facility] Last Admin: 02/03/18 04:04 Dose: Not Given Tetrahydrozoline HCl/Zinc Sulfate (Visine 0.05% Opht Soln) 2 ml OD Q4H PRN PRN Reason: itchy eyes Last Admin: 01/23/18 09:14 Dose: 1 drop Tramadol HCl (Ultram) 50 mg PO [facility] Last Admin: 02/02/18 21:23 Dose: 50 mg Zinc Sulfate (Zinc Sulfate 220 Mg Cap) 220 mg PO DAILY [facility] Last Admin: 02/02/18 09:52 Dose: 220 mg - Labs Labs: 02/02/18 07:58 02/02/18 07:58 PT 12.2 SECONDS (9.7-12.2) 01/04/18 11:43 INR 1.1 01/04/18 11:43 APTT 26 SECONDS (21-34) 01/04/18 11:43 - Constitutional Appears: No Acute Distress - Head Exam Head Exam: ATRAUMATIC, NORMAL INSPECTION - Eye Exam Eye Exam: EOMI, Normal appearance - ENT Exam ENT Exam: Mucous Membranes Moist - Respiratory Exam Respiratory Exam: Clear to Ausculation Bilateral, NORMAL BREATHING PATTERN - Cardiovascular Exam Cardiovascular Exam: REGULAR RHYTHM, RRR, +S1, +S2 - GI/Abdominal Exam GI & Abdominal Exam: Soft, Normal Bowel Sounds. absent: Tenderness - Extremities Exam Extremities Exam: absent: Pedal Edema, Tenderness - Neurological Exam Neurological Exam: Alert, Awake, Oriented x3 Neuro motor strength exam: Left Upper Extremity: 0, Right Upper Extremity: 4, Left Lower Extremity: 0, Right Lower Extremity: 4 - Psychiatric Exam Psychiatric exam: Normal Affect, Normal Mood - Skin Skin Exam: Normal Color Assessment and Plan - Assessment and Plan (Free Text) Assessment: Disposition: Patient needs acute rehab at discharge, however she has no insurance. Patient to have another interview 02/19/18 for insurance approval. Will continue to work with case management for discharge plans. Per PT, patient can not use a wheelchair because she cannot transfer from bed to chair without max assistance. No changes at this time. 1.) Acute CVA affecting the right parietal/temporal area. * Dr. Castillo (neuro) consulted, help appreciated * Pureed/dysphagia diet * Head of bed elevation * PT/OT Imaging: * 01/[address]: Large hypodensity at the right brain suggestive of acute right MCA territory infarction. Suspicious for right dense MCA sign. If clinically warranted CTA of the head is suggested to evaluate for right MCA occlusion. * 01/04 CTA head and neck: Focal moderate stenosis approximately 75-80 percent noted at the origin of the right internal carotid artery with possible soft plaque. Mild approximately 55 percent stenosis noted at the origin of the left internal carotid artery. Diffuse atherosclerotic disease and calcification noted at the distal internal carotid arteries bilaterally with foci of mild stenosis noted at the supraclinoid portion of the left internal carotid artery. Diffuse approximately 50 percent stenosis of M1 segment of the right middle cerebral artery. Sharp cut off at the M1 bifurcation of the right middle cerebral artery noted. Occlusion of the anterior temporal M2 segment of the right middle cerebral artery at its origin. * 01/[address]: Acute infarct in the right frontal, parietal and temporal lobes. No acute hemorrhage. Midline shift to the left. Prior images have been requested for direct comparison. Comparison is made to prior report. * 01/04 Echo: Normal study with EF 65-70% * 01/[address]: Large right MCA and LAURI territory infarct changes which involve a large portion of the right cerebral hemisphere. The infarct exerts considerable mass effect with overlying sulcal effacement and compressive effects on the right lateral ventricle particularly the right temporal horn with mild [id number] midline shift. No evidence of acute intracranial hemorrhage. Mild underlying chronic white matter ischemic changes seen left cerebral hemisphere as well. No obstructive hydrocephalus. * 01/05 MRI Brain: Acute infarct changes involving a good portion of the right cerebral hemisphere (distal branches of the right middle cerebral artery and anterior cerebral nor arteries). Questionable early hemorrhagic conversion changes right basal ganglia evidenced by foci of dark T2 signal in these locations on gradient echo sequence with isointense T1 signal. Persistent mass effect with mild midline shift. HEMORRHAGE: Questionable early hemorrhagic conversion changes right basal ganglia evidenced by foci of dark T2 signal in these locations on gradient echo sequence with isointense T1 signal * 01/05 Lower extremity US: negative for DVT * 01/[address]: Stable large right renal infarcted involving the right anterior middle cerebral artery territories as discussed above with stable mass effect effacing the sulci of the right cerebral hemisphere in causing a limited leftward some fall seen shift of 3-4 mm once again. No interval intracranial hemorrhage or expansion of the infarcted territory appreciated. Limited age- related neuro degenerative change reiterated at the left cerebral hemisphere. * 01/[address]: Acute/ subacute right frontotemporoparietal infarct. This involves both the LAURI and MCA territory. No hemorrhage. 2-3 mm midline shift towards the left. No significant change from prior examination. * 01/[address]: Expected changes status post right frontotemporoparietal infarct now with cortical laminar necrosis. No hemorrhage. Minimal midline shift. Medications: * Norvasc 10 mg QD * Lisinopril 5 mg QD * ASA 81 mg QD * Plavix 75 mg QD * discontinued (01/16/18) Valproate 500 mg IV Q12h due to elevated liver enzymes * Seroquel 25 mg QD * Fluoxetine changed to 10 mg QD (02/03/18 will start tapering the dose- as per patient does not want to continue medication) * Zinc 220 mg QD * Gabapentin 100mg TID * Tylenol 975mg po q6h prn 2.) UTI - resolved * UA: +1 Leuk esterase * Urine culture: Klebsiella Pneumoniae * Ciprofloxacin 400 mg in 200 mls @ 133 mls/hr IVPB Q12H [facility] * Stop date: 01/31/18 * Florastor 250 PO BID 3.) Constipation - resolved * CT abdomen and pelvis without contrast: 1. Constipation with fecal stasis in the sigmoid colon and rectum. No evidence of bowel obstruction. 2. No acute abdominal or pelvic abnormality. * On colace BID * gave 1 dose of miralax today - will advance if needed 4.) Vaginal yeast infection - resolved * Diflucan 200 mg PO once 5.) Seasonal Allergies * Claritin PRN * Visine PRN * Saline Nasal [place] * Mucinex x1 dose on 01/22 6.) Heavy alcohol use * Counseled on cessation 7.) Hyperlipidemia * Cholesterol 210, Triglycerides 248, LDL 92, HDL 81 * Crestor 40 mg HS 8.) Prophylaxis * Pepcid 20 mg BID * Florastor 250 PO BID * SCDs * Claritin PRN allergy symptoms Case discussed with Dr. hCerelle Anaya PGY-1 <Vitaliy Villarreal H - Last Filed: 02/03/18 14:29> Objective - Vital Signs/Intake and Output Vital Signs (last 24 hours): Temp Pulse Resp BP Pulse Ox 98.1 F 70 20 129/88 100 02/03/18 07:20 02/03/18 07:20 02/03/18 07:20 02/03/18 07:20 02/03/18 07:20 Intake and Output: 02/03/18 02/03/18 06:59 18:59 Output Total 400 Balance -400 - Medications Medications: Current Medications Acetaminophen (Tylenol 325mg Tab) 975 mg PO Q6 PRN PRN Reason: Pain, Mild (1-3) Last Admin: 02/03/18 07:03 Dose: 975 mg Amlodipine Besylate (Norvasc) 10 mg PO DAILY [facility] Last Admin: 02/03/18 10:04 Dose: 10 mg Ascorbic Acid (Vitamin C 500 Mg Tab) 500 mg PO DAILY [facility] Last Admin: 02/03/18 10:02 Dose: 500 mg Aspirin (Aspirin Chewable) 81 mg NG DAILY [facility] Last Admin: 02/03/18 10:03 Dose: 81 mg Clopidogrel Bisulfate (Plavix) 75 mg NG DAILY [facility] Last Admin: 02/03/18 10:03 Dose: 75 mg Docusate Sodium (Colace) 100 mg PO BID [facility] Last Admin: 02/03/18 10:03 Dose: 100 mg Famotidine (Pepcid) 20 mg PO BID [facility] Last Admin: 02/03/18 10:02 Dose: 20 mg Fluoxetine HCl (Prozac) 10 mg PO DAILY [facility] Folic Acid (Folic Acid) 1 mg PO DAILY [facility] Last Admin: 02/03/18 10:03 Dose: 1 mg Gabapentin (Neurontin) 100 mg PO TID [facility] Last Admin: 02/03/18 10:02 Dose: 100 mg Lisinopril (Zestril) 5 mg PO DAILY [facility] Last Admin: 02/03/18 10:04 Dose: 5 mg Loratadine (Claritin) 10 mg PO DAILY PRN PRN Reason: Allergy symptoms Last Admin: 02/03/18 10:04 Dose: 10 mg Magnesium Oxide (Mag-Ox) 400 mg PO BID [facility] Last Admin: 02/03/18 10:03 Dose: 400 mg Ondansetron HCl (Zofran Inj) 4 mg IVP DAILY@ONCE PRN PRN Reason: Nausea/Vomiting Last Admin: 01/20/18 22:52 Dose: 4 mg Polyethylene Glycol (Miralax) 17 gm PO DAILY PRN PRN Reason: Constipation Quetiapine Fumarate (Seroquel) 25 mg PO DAILY [facility] Last Admin: 02/03/18 10:03 Dose: 25 mg Rosuvastatin Calcium (Crestor) 40 mg PO [facility] Last Admin: 02/02/18 21:23 Dose: 40 mg Saccharomyces Boulardii (Florastor) 250 mg PO BID [facility] Last Admin: 02/03/18 10:03 Dose: 250 mg Sodium Chloride ([place] Baby Saline 30 Ml) 0 ml JYOTHI Q4H [facility] Last Admin: 02/03/18 04:04 Dose: Not Given Tetrahydrozoline HCl/Zinc Sulfate (Visine 0.05% Opht Soln) 2 ml OD Q4H PRN PRN Reason: itchy eyes Last Admin: 01/23/18 09:14 Dose: 1 drop Tramadol HCl (Ultram) 50 mg PO [facility] Last Admin: 02/02/18 21:23 Dose: 50 mg Zinc Sulfate (Zinc Sulfate 220 Mg Cap) 220 mg PO DAILY [facility] Last Admin: 02/03/18 10:03 Dose: 220 mg - Labs Labs: 02/02/18 07:58 02/02/18 07:58 PT 12.2 SECONDS (9.7-12.2) 01/04/18 11:43 INR 1.1 01/04/18 11:43 APTT 26 SECONDS (21-34) 01/04/18 11:43 Attending/Attestation - Attestation I have personally seen and examined this patient.: Yes I have fully participated in the care of the patient.: Yes I have reviewed all pertinent clinical information, including history, physical exam and plan: Yes Notes (Text): 02/03/18 14:29 Medical attending: Patient was seen and examined by me, agree with the above note by the medical record specialist. The patient was not in any acute distress. She reported some improvement with the oral gabapentin that was given yesterday , we will continue this for the time being and adjust the dose as neccesary We encouraged PT as well Vitaliy Villarreal
[2018-02-03] MEDS: Magnesium Oxide 400 mg Tab UD PO SCH ×2 (10:03→18:22)
[2018-02-03] MEDS: Saccharomyces Boulardi 250 mg Cap PO SCH ×2 (10:03→18:22)
[2018-02-04] MEDS: Sodium Chloride Nasal 0.65% Soln (30ml) NAS SCH ×6 (00:16→21:57)
--- NOTE | 2018-02-04 08:18 | CP.PCM.PN ---
Subjective - Date & Time of Evaluation Date of Evaluation: 02/04/18 Time of Evaluation: 07:00 - Subjective Subjective: Medicine Progress Notes: Patient was seen and examined at bedside in the AM. Patient states she continues to have left sided pain. Patient continues to have paralysis of LUE and LLE. She denies dizziness, fever, chills, chest pain, SOB, and swelling in the lower extremities. Objective - Vital Signs/Intake and Output Vital Signs (last 24 hours): Temp Pulse Resp BP Pulse Ox 97.6 F 82 18 106/67 97 02/04/18 07:05 02/04/18 07:05 02/04/18 07:05 02/04/18 07:05 02/04/18 07:05 Intake and Output: 02/04/18 02/04/18 06:59 18:59 Output Total 700 Balance -700 - Medications Medications: Current Medications Acetaminophen (Tylenol 325mg Tab) 975 mg PO Q6 PRN PRN Reason: Pain, Mild (1-3) Last Admin: 02/04/18 06:06 Dose: 975 mg Amlodipine Besylate (Norvasc) 10 mg PO DAILY [facility] Last Admin: 02/03/18 10:04 Dose: 10 mg Ascorbic Acid (Vitamin C 500 Mg Tab) 500 mg PO DAILY [facility] Last Admin: 02/03/18 10:02 Dose: 500 mg Aspirin (Aspirin Chewable) 81 mg NG DAILY [facility] Last Admin: 02/03/18 10:03 Dose: 81 mg Clopidogrel Bisulfate (Plavix) 75 mg NG DAILY [facility] Last Admin: 02/03/18 10:03 Dose: 75 mg Docusate Sodium (Colace) 100 mg PO BID [facility] Last Admin: 02/03/18 18:21 Dose: 100 mg Famotidine (Pepcid) 20 mg PO BID [facility] Last Admin: 02/03/18 18:26 Dose: 20 mg Fluoxetine HCl (Prozac) 10 mg PO DAILY [facility] Folic Acid (Folic Acid) 1 mg PO DAILY [facility] Last Admin: 02/03/18 10:03 Dose: 1 mg Gabapentin (Neurontin) 100 mg PO TID [facility] Last Admin: 02/03/18 18:22 Dose: 100 mg Lisinopril (Zestril) 5 mg PO DAILY [facility] Last Admin: 02/03/18 10:04 Dose: 5 mg Loratadine (Claritin) 10 mg PO DAILY PRN PRN Reason: Allergy symptoms Last Admin: 02/03/18 10:04 Dose: 10 mg Magnesium Oxide (Mag-Ox) 400 mg PO BID [facility] Last Admin: 02/03/18 18:22 Dose: 400 mg Ondansetron HCl (Zofran Inj) 4 mg IVP DAILY@ONCE PRN PRN Reason: Nausea/Vomiting Last Admin: 01/20/18 22:52 Dose: 4 mg Polyethylene Glycol (Miralax) 17 gm PO DAILY PRN PRN Reason: Constipation Quetiapine Fumarate (Seroquel) 25 mg PO DAILY [facility] Last Admin: 02/03/18 10:03 Dose: 25 mg Rosuvastatin Calcium (Crestor) 40 mg PO HS [facility] Last Admin: 02/03/18 21:30 Dose: 40 mg Saccharomyces Boulardii (Florastor) 250 mg PO BID [facility] Last Admin: 02/03/18 18:22 Dose: 250 mg Sodium Chloride ([place] Baby Saline 30 Ml) 0 ml JYOTHI Q4H [facility] Last Admin: 02/04/18 03:00 Dose: Not Given Tetrahydrozoline HCl/Zinc Sulfate (Visine 0.05% Opht Soln) 2 ml OD Q4H PRN PRN Reason: itchy eyes Last Admin: 01/23/18 09:14 Dose: 1 drop Tramadol HCl (Ultram) 50 mg PO [facility] Last Admin: 02/03/18 21:30 Dose: 50 mg Zinc Sulfate (Zinc Sulfate 220 Mg Cap) 220 mg PO DAILY [facility] Last Admin: 02/03/18 10:03 Dose: 220 mg - Labs Labs: 02/02/18 07:58 02/02/18 07:58 PT 12.2 SECONDS (9.7-12.2) 01/04/18 11:43 INR 1.1 01/04/18 11:43 APTT 26 SECONDS (21-34) 01/04/18 11:43 - Constitutional Appears: No Acute Distress - Head Exam Head Exam: ATRAUMATIC, NORMAL INSPECTION - Eye Exam Eye Exam: EOMI, Normal appearance - ENT Exam ENT Exam: Mucous Membranes Moist - Respiratory Exam Respiratory Exam: Clear to Ausculation Bilateral, NORMAL BREATHING PATTERN - Cardiovascular Exam Cardiovascular Exam: REGULAR RHYTHM, +S1, +S2 - GI/Abdominal Exam GI & Abdominal Exam: Soft, Normal Bowel Sounds. absent: Tenderness - Neurological Exam Neurological Exam: Alert, Awake, Oriented x3 Neuro motor strength exam: Left Upper Extremity: 0, Right Upper Extremity: 4, Left Lower Extremity: 0, Right Lower Extremity: 4 - Psychiatric Exam Psychiatric exam: Normal Affect - Skin Skin Exam: Normal Color Assessment and Plan - Assessment and Plan (Free Text) Assessment: Disposition: Patient needs acute rehab at discharge, however she has no insurance. Patient to have another interview 02/19/18 for insurance approval. Will continue to work with case management for discharge plans. Per PT, patient can not use a wheelchair because she cannot transfer from bed to chair without max assistance. No changes at this time. 1.) Acute CVA affecting the right parietal/temporal area. * Dr. Castillo (neuro) consulted, help appreciated * Pureed/dysphagia diet * Head of bed elevation * PT/OT Imaging: * 01/[address]: Large hypodensity at the right brain suggestive of acute right MCA territory infarction. Suspicious for right dense MCA sign. If clinically warranted CTA of the head is suggested to evaluate for right MCA occlusion. * 01/04 CTA head and neck: Focal moderate stenosis approximately 75-80 percent noted at the origin of the right internal carotid artery with possible soft plaque. Mild approximately 55 percent stenosis noted at the origin of the left internal carotid artery. Diffuse atherosclerotic disease and calcification noted at the distal internal carotid arteries bilaterally with foci of mild stenosis noted at the supraclinoid portion of the left internal carotid artery. Diffuse approximately 50 percent stenosis of M1 segment of the right middle cerebral artery. Sharp cut off at the M1 bifurcation of the right middle cerebral artery noted. Occlusion of the anterior temporal M2 segment of the right middle cerebral artery at its origin. * 01/[address]: Acute infarct in the right frontal, parietal and temporal lobes. No acute hemorrhage. Midline shift to the left. Prior images have been requested for direct comparison. Comparison is made to prior report. * 01/04 Echo: Normal study with EF 65-70% * 01/[address]: Large right MCA and LAURI territory infarct changes which involve a large portion of the right cerebral hemisphere. The infarct exerts considerable mass effect with overlying sulcal effacement and compressive effects on the right lateral ventricle particularly the right temporal horn with mild [id number] midline shift. No evidence of acute intracranial hemorrhage. Mild underlying chronic white matter ischemic changes seen left cerebral hemisphere as well. No obstructive hydrocephalus. * 01/05 MRI Brain: Acute infarct changes involving a good portion of the right cerebral hemisphere (distal branches of the right middle cerebral artery and anterior cerebral nor arteries). Questionable early hemorrhagic conversion changes right basal ganglia evidenced by foci of dark T2 signal in these locations on gradient echo sequence with isointense T1 signal. Persistent mass effect with mild midline shift. HEMORRHAGE: Questionable early hemorrhagic conversion changes right basal ganglia evidenced by foci of dark T2 signal in these locations on gradient echo sequence with isointense T1 signal * 01/05 Lower extremity US: negative for DVT * 01/[address]: Stable large right renal infarcted involving the right anterior middle cerebral artery territories as discussed above with stable mass effect effacing the sulci of the right cerebral hemisphere in causing a limited leftward some fall seen shift of 3-4 mm once again. No interval intracranial hemorrhage or expansion of the infarcted territory appreciated. Limited age- related neuro degenerative change reiterated at the left cerebral hemisphere. * 01/[address]: Acute/ subacute right frontotemporoparietal infarct. This involves both the LAURI and MCA territory. No hemorrhage. 2-3 mm midline shift towards the left. No significant change from prior examination. * 01/[address]: Expected changes status post right frontotemporoparietal infarct now with cortical laminar necrosis. No hemorrhage. Minimal midline shift. Medications: * Norvasc 10 mg QD * Lisinopril 5 mg QD * ASA 81 mg QD * Plavix 75 mg QD * discontinued (01/16/18) Valproate 500 mg IV Q12h due to elevated liver enzymes * Seroquel 25 mg QD * Fluoxetine 10 mg QD * Zinc 220 mg QD * Gabapentin 300mg BID * Tylenol 975mg po q6h prn 2.) UTI - resolved * UA: +1 Leuk esterase * Urine culture: Klebsiella Pneumoniae * Ciprofloxacin 400 mg in 200 mls @ 133 mls/hr IVPB Q12H [facility]LD[facility] * Stop date: 01/31/18 * Florastor 250 PO BID 3.) Constipation - resolved * CT abdomen and pelvis without contrast: 1. Constipation with fecal stasis in the sigmoid colon and rectum. No evidence of bowel obstruction. 2. No acute abdominal or pelvic abnormality. * On colace BID * gave 1 dose of miralax today - will advance if needed 4.) Vaginal yeast infection - resolved * Diflucan 200 mg PO once 5.) Seasonal Allergies * Claritin PRN * Visine PRN * Saline Nasal [place] * Mucinex x1 dose on 01/22 6.) Heavy alcohol use * Counseled on cessation 7.) Hyperlipidemia * Cholesterol 210, Triglycerides 248, LDL 92, HDL 81 * Crestor 40 mg HS 8.) Prophylaxis * Pepcid 20 mg BID * Florastor 250 PO BID * SCDs * Claritin PRN allergy symptoms Case discussed with Dr. Cherelle Anaya PGY-1
--- NOTE | 2018-02-04 08:27 | CP.PCM.PN ---
Subjective - Date & Time of Evaluation Date of Evaluation: 02/04/18 Time of Evaluation: 08:27 - Subjective Subjective: Ms. Bui is seen and examined at the bedside. She remains alert, oriented. She denies any headache, dizziness, nausea, or vomiting. She further states of feeling positive with her physical therapy.She is able to follow simple commands, with left facial droop, left side hemiplegia, and left side neglect. There was no untoward events overnight. Objective - Vital Signs/Intake and Output Vital Signs (last 24 hours): Temp Pulse Resp BP Pulse Ox 97.6 F 82 18 106/67 97 02/04/18 07:05 02/04/18 07:05 02/04/18 07:05 02/04/18 07:05 02/04/18 07:05 Intake and Output: 02/04/18 02/04/18 06:59 18:59 Output Total 700 Balance -700 - Medications Medications: Current Medications Acetaminophen (Tylenol 325mg Tab) 975 mg PO Q6 PRN PRN Reason: Pain, Mild (1-3) Last Admin: 02/04/18 06:06 Dose: 975 mg Amlodipine Besylate (Norvasc) 10 mg PO DAILY [facility] Last Admin: 02/03/18 10:04 Dose: 10 mg Ascorbic Acid (Vitamin C 500 Mg Tab) 500 mg PO DAILY [facility] Last Admin: 02/03/18 10:02 Dose: 500 mg Aspirin (Aspirin Chewable) 81 mg NG DAILY [facility] Last Admin: 02/03/18 10:03 Dose: 81 mg Clopidogrel Bisulfate (Plavix) 75 mg NG DAILY [facility] Last Admin: 02/03/18 10:03 Dose: 75 mg Docusate Sodium (Colace) 100 mg PO BID [facility] Last Admin: 02/03/18 18:21 Dose: 100 mg Famotidine (Pepcid) 20 mg PO BID [facility] Last Admin: 02/03/18 18:26 Dose: 20 mg Fluoxetine HCl (Prozac) 10 mg PO DAILY [facility] Folic Acid (Folic Acid) 1 mg PO DAILY [facility] Last Admin: 02/03/18 10:03 Dose: 1 mg Gabapentin (Neurontin) 100 mg PO TID [facility] Last Admin: 02/03/18 18:22 Dose: 100 mg Lisinopril (Zestril) 5 mg PO DAILY [facility] Last Admin: 02/03/18 10:04 Dose: 5 mg Loratadine (Claritin) 10 mg PO DAILY PRN PRN Reason: Allergy symptoms Last Admin: 02/03/18 10:04 Dose: 10 mg Magnesium Oxide (Mag-Ox) 400 mg PO BID [facility] Last Admin: 02/03/18 18:22 Dose: 400 mg Ondansetron HCl (Zofran Inj) 4 mg IVP DAILY@ONCE PRN PRN Reason: Nausea/Vomiting Last Admin: 01/20/18 22:52 Dose: 4 mg Polyethylene Glycol (Miralax) 17 gm PO DAILY PRN PRN Reason: Constipation Quetiapine Fumarate (Seroquel) 25 mg PO DAILY [facility] Last Admin: 02/03/18 10:03 Dose: 25 mg Rosuvastatin Calcium (Crestor) 40 mg PO HS [facility] Last Admin: 02/03/18 21:30 Dose: 40 mg Saccharomyces Boulardii (Florastor) 250 mg PO BID [facility] Last Admin: 02/03/18 18:22 Dose: 250 mg Sodium Chloride ([place] Baby Saline 30 Ml) 0 ml JYOTHI Q4H [facility] Last Admin: 02/04/18 03:00 Dose: Not Given Tetrahydrozoline HCl/Zinc Sulfate (Visine 0.05% Opht Soln) 2 ml OD Q4H PRN PRN Reason: itchy eyes Last Admin: 01/23/18 09:14 Dose: 1 drop Tramadol HCl (Ultram) 50 mg PO [facility] Last Admin: 02/03/18 21:30 Dose: 50 mg Zinc Sulfate (Zinc Sulfate 220 Mg Cap) 220 mg PO DAILY [facility] Last Admin: 02/03/18 10:03 Dose: 220 mg - Labs Labs: 02/02/18 07:58 02/02/18 07:58 PT 12.2 SECONDS (9.7-12.2) 01/04/18 11:43 INR 1.1 01/04/18 11:43 APTT 26 SECONDS (21-34) 01/04/18 11:43 - Constitutional Appears: No Acute Distress - Head Exam Head Exam: NORMAL INSPECTION - Neurological Exam Neurological Exam: Alert, Awake, Oriented x3 Neuro motor strength exam: Left Upper Extremity: 0, Right Upper Extremity: 5, Left Lower Extremity: 2/1, Right Lower Extremity: 5 Additional comments: Neurological unchanged from previous examination. Assessment and Plan (1) CVA (cerebral vascular accident) Assessment & Plan: Case discussed with Dr. Jacob, continue all current medical, physical, and occupational therapies. Recommend to let physical therapy work on her left side muscle aches. Recommend head of bed elevated, blood pressure and glycemic control. Status: Acute
[2018-02-04] MEDS: Saccharomyces Boulardi 250 mg Cap PO SCH (09:33)
[2018-02-04] MEDS: Magnesium Oxide 400 mg Tab UD PO SCH ×2 (09:33→17:43)
[2018-02-05] MEDS: Sodium Chloride Nasal 0.65% Soln (30ml) NAS SCH ×6 (00:56→21:47)
--- NOTE | 2018-02-05 07:29 | CP.PCM.PN ---
Subjective - Date & Time of Evaluation Date of Evaluation: 02/05/18 Time of Evaluation: 07:00 - Subjective Subjective: Medicine Progress Notes: Patient was seen and examined at bedside in the AM. Patient states the Gabapentin is helping with the eft sided pain. Patient continues to have paralysis of LUE and LLE. She denies dizziness, fever, chills, chest pain, SOB , and swelling in the lower extremities. Objective - Vital Signs/Intake and Output Vital Signs (last 24 hours): Temp Pulse Resp BP Pulse Ox 98.1 F 77 20 95/60 L 99 02/04/18 23:35 02/04/18 23:35 02/04/18 23:35 02/04/18 23:35 02/04/18 23:35 Intake and Output: 02/05/18 02/05/18 06:59 18:59 Intake Total 420 Output Total 1900 Balance -1480 - Medications Medications: Current Medications Acetaminophen (Tylenol 325mg Tab) 650 mg PO Q6 PRN PRN Reason: Pain, Mild (1-3) Last Admin: 02/05/18 01:22 Dose: 650 mg Amlodipine Besylate (Norvasc) 10 mg PO DAILY [facility] Last Admin: 02/04/18 09:33 Dose: 10 mg Ascorbic Acid (Vitamin C 500 Mg Tab) 500 mg PO DAILY [facility] Last Admin: 02/04/18 09:33 Dose: 500 mg Aspirin (Aspirin Chewable) 81 mg NG DAILY [facility] Last Admin: 02/04/18 09:33 Dose: 81 mg Clopidogrel Bisulfate (Plavix) 75 mg NG DAILY [facility] Last Admin: 02/04/18 09:33 Dose: 75 mg Docusate Sodium (Colace) 100 mg PO BID [facility] Last Admin: 02/04/18 17:43 Dose: 100 mg Famotidine (Pepcid) 20 mg PO BID [facility] Last Admin: 02/04/18 17:43 Dose: 20 mg Fluoxetine HCl (Prozac) 10 mg PO DAILY [facility] Last Admin: 02/04/18 09:35 Dose: 10 mg Folic Acid (Folic Acid) 1 mg PO DAILY [facility] Last Admin: 02/04/18 09:33 Dose: 1 mg Gabapentin (Neurontin) 300 mg PO BID [facility] Last Admin: 02/04/18 17:43 Dose: 300 mg Lisinopril (Zestril) 5 mg PO DAILY [facility] Last Admin: 02/04/18 09:33 Dose: 5 mg Loratadine (Claritin) 10 mg PO DAILY PRN PRN Reason: Allergy symptoms Last Admin: 02/04/18 09:33 Dose: 10 mg Magnesium Oxide (Mag-Ox) 400 mg PO BID [facility] Last Admin: 02/04/18 17:43 Dose: 400 mg Ondansetron HCl (Zofran Inj) 4 mg IVP DAILY@ONCE PRN PRN Reason: Nausea/Vomiting Last Admin: 01/20/18 22:52 Dose: 4 mg Polyethylene Glycol (Miralax) 17 gm PO DAILY PRN PRN Reason: Constipation Quetiapine Fumarate (Seroquel) 25 mg PO DAILY [facility] Last Admin: 02/04/18 09:33 Dose: 25 mg Rosuvastatin Calcium (Crestor) 40 mg PO HS [facility] Last Admin: 02/04/18 21:56 Dose: 40 mg Sodium Chloride ([place] Baby Saline 30 Ml) 0 ml JYOTHI Q4H [facility] Last Admin: 02/05/18 03:20 Dose: Not Given Tetrahydrozoline HCl/Zinc Sulfate (Visine 0.05% Opht Soln) 2 ml OD Q4H PRN PRN Reason: itchy eyes Last Admin: 01/23/18 09:14 Dose: 1 drop Tramadol HCl (Ultram) 50 mg PO [facility] Last Admin: 02/04/18 21:56 Dose: 50 mg Zinc Sulfate (Zinc Sulfate 220 Mg Cap) 220 mg PO DAILY [facility] Last Admin: 02/04/18 09:33 Dose: 220 mg - Labs Labs: 02/02/18 07:58 02/02/18 07:58 PT 12.2 SECONDS (9.7-12.2) 01/04/18 11:43 INR 1.1 01/04/18 11:43 APTT 26 SECONDS (21-34) 01/04/18 11:43 - Constitutional Appears: No Acute Distress - Head Exam Head Exam: ATRAUMATIC, NORMAL INSPECTION - Eye Exam Eye Exam: EOMI, Normal appearance - ENT Exam ENT Exam: Mucous Membranes Moist - Respiratory Exam Respiratory Exam: Clear to Ausculation Bilateral, NORMAL BREATHING PATTERN - Cardiovascular Exam Cardiovascular Exam: REGULAR RHYTHM, +S1, +S2 - GI/Abdominal Exam GI & Abdominal Exam: Soft, Normal Bowel Sounds. absent: Tenderness - Extremities Exam Extremities Exam: Normal Inspection. absent: Tenderness - Neurological Exam Neurological Exam: Alert, Awake, Oriented x3 Neuro motor strength exam: Left Upper Extremity: 0, Right Upper Extremity: 4, Left Lower Extremity: 0, Right Lower Extremity: 4 - Psychiatric Exam Psychiatric exam: Normal Affect, Normal Mood - Skin Skin Exam: Normal Color Assessment and Plan - Assessment and Plan (Free Text) Assessment: Disposition: Patient needs acute rehab at discharge, however she has no insurance. Patient to have another interview 02/19/18 for insurance approval. Will continue to work with case management for discharge plans. Per PT, patient can not use a wheelchair because she cannot transfer from bed to chair without max assistance. No changes at this time. 1.) Acute CVA affecting the right parietal/temporal area. * Dr. Castillo (neuro) consulted, help appreciated * Pureed/dysphagia diet * Head of bed elevation * PT/OT Imaging: * 01/[address]: Large hypodensity at the right brain suggestive of acute right MCA territory infarction. Suspicious for right dense MCA sign. If clinically warranted CTA of the head is suggested to evaluate for right MCA occlusion. * 01/04 CTA head and neck: Focal moderate stenosis approximately 75-80 percent noted at the origin of the right internal carotid artery with possible soft plaque. Mild approximately 55 percent stenosis noted at the origin of the left internal carotid artery. Diffuse atherosclerotic disease and calcification noted at the distal internal carotid arteries bilaterally with foci of mild stenosis noted at the supraclinoid portion of the left internal carotid artery. Diffuse approximately 50 percent stenosis of M1 segment of the right middle cerebral artery. Sharp cut off at the M1 bifurcation of the right middle cerebral artery noted. Occlusion of the anterior temporal M2 segment of the right middle cerebral artery at its origin. * 01/[address]: Acute infarct in the right frontal, parietal and temporal lobes. No acute hemorrhage. Midline shift to the left. Prior images have been requested for direct comparison. Comparison is made to prior report. * 01/04 Echo: Normal study with EF 65-70% * 01/[address]: Large right MCA and LAURI territory infarct changes which involve a large portion of the right cerebral hemisphere. The infarct exerts considerable mass effect with overlying sulcal effacement and compressive effects on the right lateral ventricle particularly the right temporal horn with mild [id number] midline shift. No evidence of acute intracranial hemorrhage. Mild underlying chronic white matter ischemic changes seen left cerebral hemisphere as well. No obstructive hydrocephalus. * 01/05 MRI Brain: Acute infarct changes involving a good portion of the right cerebral hemisphere (distal branches of the right middle cerebral artery and anterior cerebral nor arteries). Questionable early hemorrhagic conversion changes right basal ganglia evidenced by foci of dark T2 signal in these locations on gradient echo sequence with isointense T1 signal. Persistent mass effect with mild midline shift. HEMORRHAGE: Questionable early hemorrhagic conversion changes right basal ganglia evidenced by foci of dark T2 signal in these locations on gradient echo sequence with isointense T1 signal * 01/05 Lower extremity US: negative for DVT * 01/[address]: Stable large right renal infarcted involving the right anterior middle cerebral artery territories as discussed above with stable mass effect effacing the sulci of the right cerebral hemisphere in causing a limited leftward some fall seen shift of 3-4 mm once again. No interval intracranial hemorrhage or expansion of the infarcted territory appreciated. Limited age- related neuro degenerative change reiterated at the left cerebral hemisphere. * 01/[address]: Acute/ subacute right frontotemporoparietal infarct. This involves both the LAURI and MCA territory. No hemorrhage. 2-3 mm midline shift towards the left. No significant change from prior examination. * 01/[address]: Expected changes status post right frontotemporoparietal infarct now with cortical laminar necrosis. No hemorrhage. Minimal midline shift. Medications: * Norvasc 10 mg QD * Lisinopril 5 mg QD * ASA 81 mg QD * Plavix 75 mg QD * discontinued (01/16/18) Valproate 500 mg IV Q12h due to elevated liver enzymes * Seroquel 25 mg QD * Fluoxetine 10 mg QD * Zinc 220 mg QD * Gabapentin 300mg BID * Tylenol 975mg po q6h prn 2.) UTI - resolved * UA: +1 Leuk esterase * Urine culture: Klebsiella Pneumoniae * Ciprofloxacin 400 mg in 200 mls @ 133 mls/hr IVPB Q12H [facility] * Stop date: 01/31/18 * Florastor 250 PO BID 3.) Constipation - resolved * CT abdomen and pelvis without contrast: 1. Constipation with fecal stasis in the sigmoid colon and rectum. No evidence of bowel obstruction. 2. No acute abdominal or pelvic abnormality. * On colace BID * gave 1 dose of miralax today - will advance if needed 4.) Vaginal yeast infection - resolved * Diflucan 200 mg PO once 5.) Seasonal Allergies * Claritin PRN * Visine PRN * Saline Nasal [place] * Mucinex x1 dose on 01/22 6.) Heavy alcohol use * Counseled on cessation 7.) Hyperlipidemia * Cholesterol 210, Triglycerides 248, LDL 92, HDL 81 * Crestor 40 mg HS 8.) Prophylaxis * Pepcid 20 mg BID * Florastor 250 PO BID * SCDs * Claritin PRN allergy symptoms Case discussed with Dr. Cherelle Anaya PGY-1
--- NOTE | 2018-02-05 08:04 | CP.PCM.PN ---
Subjective - Date & Time of Evaluation Date of Evaluation: 02/05/18 Time of Evaluation: 08:04 - Subjective Subjective: Ms. Bui is seen and examined at the bedside. She remains alert, oriented. She denies any headache, dizziness, nausea, or vomiting. She further states of feeling positive with her physical therapy.She is able to follow simple commands, with left facial droop, left side hemiplegia, and left side neglect. There was no untoward events overnight. Objective - Vital Signs/Intake and Output Vital Signs (last 24 hours): Temp Pulse Resp BP Pulse Ox 98.1 F 77 20 95/60 L 99 02/04/18 23:35 02/04/18 23:35 02/04/18 23:35 02/04/18 23:35 02/04/18 23:35 Intake and Output: 02/05/18 02/05/18 06:59 18:59 Intake Total 420 Output Total 1900 Balance -1480 - Medications Medications: Current Medications Acetaminophen (Tylenol 325mg Tab) 650 mg PO Q6 PRN PRN Reason: Pain, Mild (1-3) Last Admin: 02/05/18 01:22 Dose: 650 mg Amlodipine Besylate (Norvasc) 10 mg PO DAILY [facility] Last Admin: 02/04/18 09:33 Dose: 10 mg Ascorbic Acid (Vitamin C 500 Mg Tab) 500 mg PO DAILY [facility] Last Admin: 02/04/18 09:33 Dose: 500 mg Aspirin (Aspirin Chewable) 81 mg NG DAILY [facility] Last Admin: 02/04/18 09:33 Dose: 81 mg Clopidogrel Bisulfate (Plavix) 75 mg NG DAILY [facility] Last Admin: 02/04/18 09:33 Dose: 75 mg Docusate Sodium (Colace) 100 mg PO BID [facility] Last Admin: 02/04/18 17:43 Dose: 100 mg Famotidine (Pepcid) 20 mg PO BID [facility] Last Admin: 02/04/18 17:43 Dose: 20 mg Fluoxetine HCl (Prozac) 10 mg PO DAILY [facility] Last Admin: 02/04/18 09:35 Dose: 10 mg Folic Acid (Folic Acid) 1 mg PO DAILY [facility] Last Admin: 02/04/18 09:33 Dose: 1 mg Gabapentin (Neurontin) 300 mg PO BID [facility] Last Admin: 02/04/18 17:43 Dose: 300 mg Lisinopril (Zestril) 5 mg PO DAILY [facility] Last Admin: 02/04/18 09:33 Dose: 5 mg Loratadine (Claritin) 10 mg PO DAILY PRN PRN Reason: Allergy symptoms Last Admin: 02/04/18 09:33 Dose: 10 mg Magnesium Oxide (Mag-Ox) 400 mg PO BID [facility] Last Admin: 02/04/18 17:43 Dose: 400 mg Ondansetron HCl (Zofran Inj) 4 mg IVP DAILY@ONCE PRN PRN Reason: Nausea/Vomiting Last Admin: 01/20/18 22:52 Dose: 4 mg Polyethylene Glycol (Miralax) 17 gm PO DAILY PRN PRN Reason: Constipation Quetiapine Fumarate (Seroquel) 25 mg PO DAILY [facility] Last Admin: 02/04/18 09:33 Dose: 25 mg Rosuvastatin Calcium (Crestor) 40 mg PO HS [facility] Last Admin: 02/04/18 21:56 Dose: 40 mg Sodium Chloride ([place] Baby Saline 30 Ml) 0 ml JYOTHI Q4H [facility] Last Admin: 02/05/18 03:20 Dose: Not Given Tetrahydrozoline HCl/Zinc Sulfate (Visine 0.05% Opht Soln) 2 ml OD Q4H PRN PRN Reason: itchy eyes Last Admin: 01/23/18 09:14 Dose: 1 drop Tramadol HCl (Ultram) 50 mg PO [facility] Last Admin: 02/04/18 21:56 Dose: 50 mg Zinc Sulfate (Zinc Sulfate 220 Mg Cap) 220 mg PO DAILY [facility] Last Admin: 02/04/18 09:33 Dose: 220 mg - Labs Labs: 02/02/18 07:58 02/02/18 07:58 PT 12.2 SECONDS (9.7-12.2) 01/04/18 11:43 INR 1.1 01/04/18 11:43 APTT 26 SECONDS (21-34) 01/04/18 11:43 - Constitutional Appears: No Acute Distress - Head Exam Head Exam: NORMAL INSPECTION - Neurological Exam Neurological Exam: Alert, Awake, Oriented x3 Neuro motor strength exam: Left Upper Extremity: 0, Right Upper Extremity: 5, Left Lower Extremity: 2/1, Right Lower Extremity: 5 Additional comments: Neurological unchanged from previous examination. Assessment and Plan (1) CVA (cerebral vascular accident) Assessment & Plan: Case discussed with Dr. Jacob, continue all current medical, physical, and occupational therapies. Recommend to let physical therapy work on her left side muscle aches. Recommend head of bed elevated, blood pressure and glycemic control. Status: Acute
[2018-02-05] MEDS: Magnesium Oxide 400 mg Tab UD PO SCH ×2 (10:46→17:41)
[2018-02-06] MEDS: Sodium Chloride Nasal 0.65% Soln (30ml) NAS SCH ×5 (00:03→20:00)
[2018-02-06] MEDS: Magnesium Oxide 400 mg Tab UD PO SCH ×2 (10:29→17:29)
--- NOTE | 2018-02-06 10:36 | CP.PCM.PN ---
Subjective - Date & Time of Evaluation Date of Evaluation: 02/06/18 Time of Evaluation: 07:00 - Subjective Subjective: Medicine Progress Notes: Patient was seen and examined at bedside in the AM. Patient states the Gabapentin is helping with the left sided pain but continues to have pain in the left side, thigh, arm with tingling Patient continues to have paralysis of LUE and LLE. She denies dizziness, fever, chills, chest pain, SOB, and swelling in the lower extremities. Objective - Vital Signs/Intake and Output Vital Signs (last 24 hours): Temp Pulse Resp BP Pulse Ox 98.0 F 73 18 116/70 99 02/06/18 07:00 02/06/18 07:00 02/06/18 07:00 02/06/18 07:00 02/06/18 07:00 Intake and Output: 02/06/18 02/06/18 06:59 18:59 Output Total 300 Balance -300 - Medications Medications: Current Medications Acetaminophen (Tylenol 325mg Tab) 650 mg PO Q6 PRN PRN Reason: Pain, Mild (1-3) Last Admin: 02/05/18 16:53 Dose: 650 mg Amlodipine Besylate (Norvasc) 10 mg PO DAILY [facility] Last Admin: 02/05/18 10:46 Dose: 10 mg Ascorbic Acid (Vitamin C 500 Mg Tab) 500 mg PO DAILY [facility] Last Admin: 02/05/18 10:46 Dose: 500 mg Aspirin (Aspirin Chewable) 81 mg NG DAILY [facility] Last Admin: 02/05/18 10:46 Dose: 81 mg Clopidogrel Bisulfate (Plavix) 75 mg NG DAILY [facility] Last Admin: 02/05/18 10:47 Dose: 75 mg Docusate Sodium (Colace) 100 mg PO BID [facility] Last Admin: 02/05/18 17:41 Dose: 100 mg Famotidine (Pepcid) 20 mg PO BID [facility] Last Admin: 02/05/18 17:41 Dose: 20 mg Fluoxetine HCl (Prozac) 10 mg PO DAILY [facility] Last Admin: 02/05/18 10:46 Dose: 10 mg Folic Acid (Folic Acid) 1 mg PO DAILY [facility] Last Admin: 02/05/18 10:46 Dose: 1 mg Gabapentin (Neurontin) 300 mg PO BID [facility] Last Admin: 02/05/18 17:41 Dose: 300 mg Lisinopril (Zestril) 5 mg PO DAILY [facility] Last Admin: 02/05/18 10:46 Dose: 5 mg Loratadine (Claritin) 10 mg PO DAILY PRN PRN Reason: Allergy symptoms Last Admin: 02/04/18 09:33 Dose: 10 mg Magnesium Oxide (Mag-Ox) 400 mg PO BID [facility] Last Admin: 02/05/18 17:41 Dose: 400 mg Ondansetron HCl (Zofran Inj) 4 mg IVP DAILY@ONCE PRN PRN Reason: Nausea/Vomiting Last Admin: 01/20/18 22:52 Dose: 4 mg Polyethylene Glycol (Miralax) 17 gm PO DAILY PRN PRN Reason: Constipation Quetiapine Fumarate (Seroquel) 25 mg PO DAILY [facility] Last Admin: 02/05/18 10:46 Dose: 25 mg Rosuvastatin Calcium (Crestor) 40 mg PO HS [facility] Last Admin: 02/05/18 21:54 Dose: 40 mg Sodium Chloride ([place] Baby Saline 30 Ml) 0 ml JYOTHI Q4H [facility] Last Admin: 02/06/18 07:26 Dose: Not Given Tetrahydrozoline HCl/Zinc Sulfate (Visine 0.05% Opht Soln) 2 ml OD Q4H PRN PRN Reason: itchy eyes Last Admin: 01/23/18 09:14 Dose: 1 drop Tramadol HCl (Ultram) 50 mg PO [facility] Last Admin: 02/05/18 21:54 Dose: 50 mg Zinc Sulfate (Zinc Sulfate 220 Mg Cap) 220 mg PO DAILY [facility] Last Admin: 02/05/18 10:50 Dose: 220 mg - Labs Labs: 02/02/18 07:58 02/02/18 07:58 PT 12.2 SECONDS (9.7-12.2) 01/04/18 11:43 INR 1.1 01/04/18 11:43 APTT 26 SECONDS (21-34) 01/04/18 11:43 - Additional Findings Additional findings: - Constitutional Appears: No Acute Distress - Head Exam Head Exam: ATRAUMATIC, NORMAL INSPECTION - Eye Exam Eye Exam: EOMI, Normal appearance - ENT Exam ENT Exam: Mucous Membranes Moist - Respiratory Exam Respiratory Exam: Clear to Ausculation Bilateral, NORMAL BREATHING PATTERN - Cardiovascular Exam Cardiovascular Exam: REGULAR RHYTHM, +S1, +S2 - GI/Abdominal Exam GI & Abdominal Exam: Soft, Normal Bowel Sounds. absent: Tenderness - Extremities Exam Extremities Exam: Normal Inspection. absent: Tenderness - Neurological Exam Neurological Exam: Alert, Awake, Oriented x3 Neuro motor strength exam: Left Upper Extremity: 0, Right Upper Extremity: 4, Left Lower Extremity: 0, Right Lower Extremity: 4 - Psychiatric Exam Psychiatric exam: Normal Affect, Normal Mood - Skin Skin Exam: Normal Color Assessment and Plan - Assessment and Plan (Free Text) Assessment: Disposition: Patient needs acute rehab at discharge, however she has no insurance. Patient to have another interview 02/19/18 for insurance approval. Will continue to work with case management for discharge plans. Per PT, patient can not use a wheelchair because she cannot transfer from bed to chair without max assistance. No changes at this time. 1.) Acute CVA affecting the right parietal/temporal area. * Dr. Castillo (neuro) consulted, help appreciated * Pureed/dysphagia diet * Head of bed elevation * PT/OT Imaging: * 01/[address]: Large hypodensity at the right brain suggestive of acute right MCA territory infarction. Suspicious for right dense MCA sign. If clinically warranted CTA of the head is suggested to evaluate for right MCA occlusion. * 01/04 CTA head and neck: Focal moderate stenosis approximately 75-80 percent noted at the origin of the right internal carotid artery with possible soft plaque. Mild approximately 55 percent stenosis noted at the origin of the left internal carotid artery. Diffuse atherosclerotic disease and calcification noted at the distal internal carotid arteries bilaterally with foci of mild stenosis noted at the supraclinoid portion of the left internal carotid artery. Diffuse approximately 50 percent stenosis of M1 segment of the right middle cerebral artery. Sharp cut off at the M1 bifurcation of the right middle cerebral artery noted. Occlusion of the anterior temporal M2 segment of the right middle cerebral artery at its origin. * 01/[address]: Acute infarct in the right frontal, parietal and temporal lobes. No acute hemorrhage. Midline shift to the left. Prior images have been requested for direct comparison. Comparison is made to prior report. * 01/04 Echo: Normal study with EF 65-70% * 01/[address]: Large right MCA and LAURI territory infarct changes which involve a large portion of the right cerebral hemisphere. The infarct exerts considerable mass effect with overlying sulcal effacement and compressive effects on the right lateral ventricle particularly the right temporal horn with mild [id number] midline shift. No evidence of acute intracranial hemorrhage. Mild underlying chronic white matter ischemic changes seen left cerebral hemisphere as well. No obstructive hydrocephalus. * 01/05 MRI Brain: Acute infarct changes involving a good portion of the right cerebral hemisphere (distal branches of the right middle cerebral artery and anterior cerebral nor arteries). Questionable early hemorrhagic conversion changes right basal ganglia evidenced by foci of dark T2 signal in these locations on gradient echo sequence with isointense T1 signal. Persistent mass effect with mild midline shift. HEMORRHAGE: Questionable early hemorrhagic conversion changes right basal ganglia evidenced by foci of dark T2 signal in these locations on gradient echo sequence with isointense T1 signal * 01/05 Lower extremity US: negative for DVT * 01/[address]: Stable large right renal infarcted involving the right anterior middle cerebral artery territories as discussed above with stable mass effect effacing the sulci of the right cerebral hemisphere in causing a limited leftward some fall seen shift of 3-4 mm once again. No interval intracranial hemorrhage or expansion of the infarcted territory appreciated. Limited age- related neuro degenerative change reiterated at the left cerebral hemisphere. * 01/[address]: Acute/ subacute right frontotemporoparietal infarct. This involves both the LAURI and MCA territory. No hemorrhage. 2-3 mm midline shift towards the left. No significant change from prior examination. * 01/[address]: Expected changes status post right frontotemporoparietal infarct now with cortical laminar necrosis. No hemorrhage. Minimal midline shift. Medications: * Norvasc 10 mg QD * Lisinopril 5 mg QD * ASA 81 mg QD * Plavix 75 mg QD * discontinued (01/16/18) Valproate 500 mg IV Q12h due to elevated liver enzymes * Seroquel 25 mg QD * Fluoxetine 10 mg QD * Zinc 220 mg QD * Gabapentin 300mg BID * Tylenol 975mg po q6h prn 2.) UTI - resolved * UA: +1 Leuk esterase * Urine culture: Klebsiella Pneumoniae * Ciprofloxacin 400 mg in 200 mls @ 133 mls/hr IVPB Q12H [facility] * Stop date: 01/31/18 * Florastor 250 PO BID 3.) Constipation - resolved * CT abdomen and pelvis without contrast: 1. Constipation with fecal stasis in the sigmoid colon and rectum. No evidence of bowel obstruction. 2. No acute abdominal or pelvic abnormality. * On colace BID * gave 1 dose of miralax today - will advance if needed 4.) Vaginal yeast infection - resolved * Diflucan 200 mg PO once 5.) Seasonal Allergies * Claritin PRN * Visine PRN * Saline Nasal [place] * Mucinex x1 dose on 01/22 6.) Heavy alcohol use * Counseled on cessation 7.) Hyperlipidemia * Cholesterol 210, Triglycerides 248, LDL 92, HDL 81 * Crestor 40 mg HS 8.) Prophylaxis * Pepcid 20 mg BID * Florastor 250 PO BID * SCDs * Claritin PRN allergy symptoms * Ensure BID * PT
[2018-02-06] MEDS ORDERED: Bisacodyl 5mg EC Tab PO ONE (16:57)
--- NOTE | 2018-02-06 20:33 | CP.PCM.PN ---
<Eileen Anaya - Last Filed: 02/07/18 06:09> Subjective - Date & Time of Evaluation Date of Evaluation: 02/07/18 Time of Evaluation: 06:00 - Subjective Subjective: Medicine Progress Note: Patient was seen and examined at bedside in the AM. Patient states the Gabapentin is helping with the left sided pain but continues to have pain in the left side, thigh, arm with tingling. Patient continues to have paralysis of LUE and LLE. Patient states she continues to have constipation but she states she is passing flatus. She denies dizziness, fever, chills, chest pain, SOB, and swelling in the lower extremities. Objective - Vital Signs/Intake and Output Vital Signs (last 24 hours): Temp Pulse Resp BP Pulse Ox 98.3 F 82 20 123/73 98 02/06/18 17:04 02/06/18 17:04 02/06/18 17:04 02/06/18 17:04 02/06/18 17:04 - Medications Medications: Current Medications Acetaminophen (Tylenol 325mg Tab) 650 mg PO Q6 PRN PRN Reason: Pain, Mild (1-3) Last Admin: 02/06/18 10:30 Dose: 650 mg Amlodipine Besylate (Norvasc) 10 mg PO DAILY [facility] Last Admin: 02/06/18 10:29 Dose: 10 mg Ascorbic Acid (Vitamin C 500 Mg Tab) 500 mg PO DAILY [facility] Last Admin: 02/06/18 10:29 Dose: 500 mg Aspirin (Aspirin Chewable) 81 mg NG DAILY [facility] Last Admin: 02/06/18 10:29 Dose: 81 mg Clopidogrel Bisulfate (Plavix) 75 mg NG DAILY [facility] Last Admin: 02/06/18 10:29 Dose: 75 mg Docusate Sodium (Colace) 100 mg PO BID [facility] Last Admin: 02/06/18 17:29 Dose: 100 mg Famotidine (Pepcid) 20 mg PO BID [facility] Last Admin: 02/06/18 17:29 Dose: 20 mg Fluoxetine HCl (Prozac) 10 mg PO DAILY [facility] Last Admin: 02/06/18 10:29 Dose: 10 mg Folic Acid (Folic Acid) 1 mg PO DAILY [facility] Last Admin: 02/06/18 10:29 Dose: 1 mg Gabapentin (Neurontin) 300 mg PO TID [facility] Last Admin: 02/06/18 17:29 Dose: 300 mg Lisinopril (Zestril) 5 mg PO DAILY [facility] Last Admin: 02/06/18 10:29 Dose: 5 mg Loratadine (Claritin) 10 mg PO DAILY PRN PRN Reason: Allergy symptoms Last Admin: 02/04/18 09:33 Dose: 10 mg Magnesium Oxide (Mag-Ox) 400 mg PO BID [facility] Last Admin: 02/06/18 17:29 Dose: 400 mg Ondansetron HCl (Zofran Inj) 4 mg IVP DAILY@ONCE PRN PRN Reason: Nausea/Vomiting Last Admin: 01/20/18 22:52 Dose: 4 mg Polyethylene Glycol (Miralax) 17 gm PO DAILY PRN PRN Reason: Constipation Quetiapine Fumarate (Seroquel) 25 mg PO DAILY [facility] Last Admin: 02/06/18 10:29 Dose: 25 mg Rosuvastatin Calcium (Crestor) 40 mg PO [facility] Last Admin: 02/05/18 21:54 Dose: 40 mg Sodium Chloride ([place] Baby Saline 30 Ml) 0 ml JYOTHI Q4H [facility] Last Admin: 02/06/18 07:26 Dose: Not Given Tetrahydrozoline HCl/Zinc Sulfate (Visine 0.05% Opht Soln) 2 ml OD Q4H PRN PRN Reason: itchy eyes Last Admin: 01/23/18 09:14 Dose: 1 drop Tramadol HCl (Ultram) 50 mg PO [facility] Last Admin: 02/05/18 21:54 Dose: 50 mg Zinc Sulfate (Zinc Sulfate 220 Mg Cap) 220 mg PO DAILY [facility] Last Admin: 02/06/18 10:29 Dose: 220 mg - Labs Labs: 02/02/18 07:58 02/02/18 07:58 PT 12.2 SECONDS (9.7-12.2) 01/04/18 11:43 INR 1.1 01/04/18 11:43 APTT 26 SECONDS (21-34) 01/04/18 11:43 - Constitutional Appears: No Acute Distress - Head Exam Head Exam: ATRAUMATIC, NORMAL INSPECTION - Eye Exam Eye Exam: EOMI, Normal appearance - ENT Exam ENT Exam: Mucous Membranes Moist - Respiratory Exam Respiratory Exam: Clear to Ausculation Bilateral, NORMAL BREATHING PATTERN - Cardiovascular Exam Cardiovascular Exam: REGULAR RHYTHM, +S1, +S2 - GI/Abdominal Exam GI & Abdominal Exam: Distended, Soft, Normal Bowel Sounds. absent: Tenderness - Extremities Exam Extremities Exam: Normal Inspection - Neurological Exam Neurological Exam: Alert, Awake, Oriented x3 Neuro motor strength exam: Left Upper Extremity: 0, Right Upper Extremity: 4, Left Lower Extremity: 0, Right Lower Extremity: 4 - Psychiatric Exam Psychiatric exam: Normal Affect, Normal Mood - Skin Skin Exam: Normal Color Assessment and Plan - Assessment and Plan (Free Text) Assessment: Disposition: Patient needs acute rehab at discharge, however she has no insurance. Patient to have another interview 02/19/18 for insurance approval. Will continue to work with case management for discharge plans. Per PT, patient can not use a wheelchair because she cannot transfer from bed to chair without max assistance. No changes at this time. 1.) Acute CVA affecting the right parietal/temporal area. * Dr. Castillo (neuro) consulted, help appreciated * Pureed/dysphagia diet * Head of bed elevation * PT/OT Imaging: * 01/[address]: Large hypodensity at the right brain suggestive of acute right MCA territory infarction. Suspicious for right dense MCA sign. If clinically warranted CTA of the head is suggested to evaluate for right MCA occlusion. * 01/04 CTA head and neck: Focal moderate stenosis approximately 75-80 percent noted at the origin of the right internal carotid artery with possible soft plaque. Mild approximately 55 percent stenosis noted at the origin of the left internal carotid artery. Diffuse atherosclerotic disease and calcification noted at the distal internal carotid arteries bilaterally with foci of mild stenosis noted at the supraclinoid portion of the left internal carotid artery. Diffuse approximately 50 percent stenosis of M1 segment of the right middle cerebral artery. Sharp cut off at the M1 bifurcation of the right middle cerebral artery noted. Occlusion of the anterior temporal M2 segment of the right middle cerebral artery at its origin. * 01/[address]: Acute infarct in the right frontal, parietal and temporal lobes. No acute hemorrhage. Midline shift to the left. Prior images have been requested for direct comparison. Comparison is made to prior report. * 01/04 Echo: Normal study with EF 65-70% * 01/[address]: Large right MCA and LAURI territory infarct changes which involve a large portion of the right cerebral hemisphere. The infarct exerts considerable mass effect with overlying sulcal effacement and compressive effects on the right lateral ventricle particularly the right temporal horn with mild [id number] midline shift. No evidence of acute intracranial hemorrhage. Mild underlying chronic white matter ischemic changes seen left cerebral hemisphere as well. No obstructive hydrocephalus. * 01/05 MRI Brain: Acute infarct changes involving a good portion of the right cerebral hemisphere (distal branches of the right middle cerebral artery and anterior cerebral nor arteries). Questionable early hemorrhagic conversion changes right basal ganglia evidenced by foci of dark T2 signal in these locations on gradient echo sequence with isointense T1 signal. Persistent mass effect with mild midline shift. HEMORRHAGE: Questionable early hemorrhagic conversion changes right basal ganglia evidenced by foci of dark T2 signal in these locations on gradient echo sequence with isointense T1 signal * 01/05 Lower extremity US: negative for DVT * 01/[address]: Stable large right renal infarcted involving the right anterior middle cerebral artery territories as discussed above with stable mass effect effacing the sulci of the right cerebral hemisphere in causing a limited leftward some fall seen shift of 3-4 mm once again. No interval intracranial hemorrhage or expansion of the infarcted territory appreciated. Limited age- related neuro degenerative change reiterated at the left cerebral hemisphere. * 01/[address]: Acute/ subacute right frontotemporoparietal infarct. This involves both the LAURI and MCA territory. No hemorrhage. 2-3 mm midline shift towards the left. No significant change from prior examination. * 01/[address]: Expected changes status post right frontotemporoparietal infarct now with cortical laminar necrosis. No hemorrhage. Minimal midline shift. Medications: * Norvasc 10 mg QD * Lisinopril 5 mg QD * ASA 81 mg QD * Plavix 75 mg QD * discontinued (01/16/18) Valproate 500 mg IV Q12h due to elevated liver enzymes * Seroquel 25 mg QD * Fluoxetine 10 mg QD * Zinc 220 mg QD * Gabapentin 300mg BID * Tylenol 975mg po q6h prn 2.) UTI - resolved * UA: +1 Leuk esterase * Urine culture: Klebsiella Pneumoniae * Ciprofloxacin 400 mg in 200 mls @ 133 mls/hr IVPB Q12H [facility] * Stop date: 01/31/18 * Florastor 250 PO BID 3.) Constipation - resolved * CT abdomen and pelvis without contrast: 1. Constipation with fecal stasis in the sigmoid colon and rectum. No evidence of bowel obstruction. 2. No acute abdominal or pelvic abnormality. * On colace BID * gave 1 dose of miralax today - will advance if needed 4.) Vaginal yeast infection - resolved * Diflucan 200 mg PO once 5.) Seasonal Allergies * Claritin PRN * Visine PRN * Saline Nasal [place] * Mucinex x1 dose on 01/22 6.) Heavy alcohol use * Counseled on cessation 7.) Hyperlipidemia * Cholesterol 210, Triglycerides 248, LDL 92, HDL 81 * Crestor 40 mg HS 8.) Prophylaxis * Pepcid 20 mg BID * Florastor 250 PO BID * SCDs * Claritin PRN allergy symptoms * Ensure BID * PT <VillarrealVitaliy H - Last Filed: 02/07/18 11:40> Objective - Vital Signs/Intake and Output Vital Signs (last 24 hours): Temp Pulse Resp BP Pulse Ox 97.9 F 80 20 117/75 97 02/07/18 07:00 02/07/18 09:54 02/07/18 07:00 02/07/18 09:54 02/07/18 07:00 Intake and Output: 02/07/18 02/07/18 06:59 18:59 Intake Total 580 Output Total 1400 Balance -820 - Medications Medications: Current Medications Acetaminophen (Tylenol 325mg Tab) 650 mg PO Q6 PRN PRN Reason: Pain, Mild (1-3) Last Admin: 02/07/18 05:39 Dose: 650 mg Amlodipine Besylate (Norvasc) 10 mg PO DAILY [facility] Last Admin: 02/07/18 09:54 Dose: 10 mg Ascorbic Acid (Vitamin C 500 Mg Tab) 500 mg PO DAILY [facility] Last Admin: 02/07/18 09:54 Dose: 500 mg Aspirin (Aspirin Chewable) 81 mg NG DAILY [facility] Last Admin: 02/07/18 09:54 Dose: 81 mg Clopidogrel Bisulfate (Plavix) 75 mg NG DAILY [facility] Last Admin: 02/07/18 09:54 Dose: 75 mg Docusate Sodium (Colace) 100 mg PO BID [facility] Last Admin: 02/07/18 09:54 Dose: 100 mg Famotidine (Pepcid) 20 mg PO BID [facility] Last Admin: 02/07/18 09:54 Dose: 20 mg Fluoxetine HCl (Prozac) 10 mg PO DAILY [facility] Last Admin: 02/07/18 09:54 Dose: 10 mg Folic Acid (Folic Acid) 1 mg PO DAILY [facility] Last Admin: 02/07/18 09:54 Dose: 1 mg Gabapentin (Neurontin) 300 mg PO TID [facility] Last Admin: 02/07/18 09:54 Dose: 300 mg Lisinopril (Zestril) 5 mg PO DAILY [facility] Last Admin: 02/07/18 09:54 Dose: 5 mg Loratadine (Claritin) 10 mg PO DAILY PRN PRN Reason: Allergy symptoms Last Admin: 02/04/18 09:33 Dose: 10 mg Magnesium Oxide (Mag-Ox) 400 mg PO BID [facility] Last Admin: 02/07/18 09:54 Dose: 400 mg Ondansetron HCl (Zofran Inj) 4 mg IVP DAILY@ONCE PRN PRN Reason: Nausea/Vomiting Last Admin: 01/20/18 22:52 Dose: 4 mg Polyethylene Glycol (Miralax) 17 gm PO DAILY PRN PRN Reason: Constipation Quetiapine Fumarate (Seroquel) 25 mg PO DAILY [facility] Last Admin: 02/07/18 09:54 Dose: 25 mg Rosuvastatin Calcium (Crestor) 40 mg PO [facility] Last Admin: 02/06/18 21:24 Dose: 40 mg Sodium Chloride ([place] Baby Saline 30 Ml) 0 ml JYOTHI Q4H [facility] Last Admin: 02/07/18 09:51 Dose: 2 sprays Tetrahydrozoline HCl/Zinc Sulfate (Visine 0.05% Opht Soln) 2 ml OD Q4H PRN PRN Reason: itchy eyes Last Admin: 01/23/18 09:14 Dose: 1 drop Tramadol HCl (Ultram) 50 mg PO [facility] Last Admin: 02/06/18 21:24 Dose: 50 mg Zinc Sulfate (Zinc Sulfate 220 Mg Cap) 220 mg PO DAILY [facility] Last Admin: 02/07/18 09:54 Dose: 220 mg - Labs Labs: 02/02/18 07:58 02/02/18 07:58 PT 12.2 SECONDS (9.7-12.2) 01/04/18 11:43 INR 1.1 01/04/18 11:43 APTT 26 SECONDS (21-34) 01/04/18 11:43 Attending/Attestation - Attestation I have personally seen and examined this patient.: Yes I have fully participated in the care of the patient.: Yes I have reviewed all pertinent clinical information, including history, physical exam and plan: Yes Notes (Text): 02/07/18 11:38 Medical attending: Patient was seen and examined by me. Agree with the above note by the resident The patient was at rest. No acute problems overnight She said that earlier in the morning had a BM Will recheck UA and UC+S today thank you Vitaliy Villarreal
[2018-02-07] MEDS: Sodium Chloride Nasal 0.65% Soln (30ml) NAS SCH ×6 (00:43→19:25)
[2018-02-07] MEDS: Magnesium Oxide 400 mg Tab UD PO SCH ×2 (09:54→17:38)
[2018-02-07 15:03] LABS: URINE BILIRUBIN NEGATIVE (NEGATIVE); URINE BLOOD NEGATIVE (NEGATIVE); URINE CLARITY Clear (Clear); URINE COLOR Yellow (YELLOW); URINE GLUCOSE (UA) NORMAL (Normal); URINE LEUKOCYTE ESTERASE NEG Leu/uL (Negative); URINE PROTEIN NEGATIVE (NEGATIVE); URINE UROBILINOGEN NORMAL mg/dL (0.2-1.0)
--- NOTE | 2018-02-07 22:41 | CP.PCM.PN ---
<Eileen Anaya - Last Filed: 02/08/18 07:18> Subjective - Date & Time of Evaluation Date of Evaluation: 02/08/18 Time of Evaluation: 06:00 - Subjective Subjective: Medicine Progress Note: Patient was seen and examined at bedside in the AM. Patient states the Gabapentin is helping with the left sided pain but continues to have pain in the left side, thigh, arm with tingling. Patient continues to have paralysis of LUE and LLE. Patient states she had a bowel movement with the addition of Lactulose. She denies dizziness, fever, chills, chest pain, SOB, and swelling in the lower extremities. Objective - Vital Signs/Intake and Output Vital Signs (last 24 hours): Temp Pulse Resp BP Pulse Ox 98.7 F 101 H 20 109/75 96 02/07/18 15:57 02/07/18 15:57 02/07/18 15:57 02/07/18 15:57 02/07/18 15:57 Intake and Output: 02/07/18 02/08/18 18:59 06:59 Intake Total 500 Output Total 600 Balance -100 - Medications Medications: Current Medications Acetaminophen (Tylenol 325mg Tab) 650 mg PO Q6 PRN PRN Reason: Pain, Mild (1-3) Last Admin: 02/07/18 19:26 Dose: 650 mg Amlodipine Besylate (Norvasc) 10 mg PO DAILY [facility] Last Admin: 02/07/18 09:54 Dose: 10 mg Ascorbic Acid (Vitamin C 500 Mg Tab) 500 mg PO DAILY [facility] Last Admin: 02/07/18 09:54 Dose: 500 mg Aspirin (Aspirin Chewable) 81 mg NG DAILY [facility] Last Admin: 02/07/18 09:54 Dose: 81 mg Clopidogrel Bisulfate (Plavix) 75 mg NG DAILY [facility] Last Admin: 02/07/18 09:54 Dose: 75 mg Docusate Sodium (Colace) 100 mg PO BID [facility] Last Admin: 02/07/18 17:39 Dose: 100 mg Famotidine (Pepcid) 20 mg PO BID [facility] Last Admin: 02/07/18 17:39 Dose: 20 mg Fluoxetine HCl (Prozac) 10 mg PO DAILY [facility] Last Admin: 02/07/18 09:54 Dose: 10 mg Folic Acid (Folic Acid) 1 mg PO DAILY [facility] Last Admin: 02/07/18 09:54 Dose: 1 mg Gabapentin (Neurontin) 300 mg PO TID [facility] Last Admin: 02/07/18 17:38 Dose: 300 mg Lisinopril (Zestril) 5 mg PO DAILY [facility] Last Admin: 02/07/18 09:54 Dose: 5 mg Loratadine (Claritin) 10 mg PO DAILY PRN PRN Reason: Allergy symptoms Last Admin: 02/04/18 09:33 Dose: 10 mg Magnesium Oxide (Mag-Ox) 400 mg PO BID [facility] Last Admin: 02/07/18 17:38 Dose: 400 mg Ondansetron HCl (Zofran Inj) 4 mg IVP DAILY@ONCE PRN PRN Reason: Nausea/Vomiting Last Admin: 01/20/18 22:52 Dose: 4 mg Polyethylene Glycol (Miralax) 17 gm PO DAILY PRN PRN Reason: Constipation Quetiapine Fumarate (Seroquel) 25 mg PO DAILY [facility] Last Admin: 02/07/18 09:54 Dose: 25 mg Rosuvastatin Calcium (Crestor) 40 mg PO [facility] Last Admin: 02/07/18 22:02 Dose: 40 mg Sodium Chloride ([place] Baby Saline 30 Ml) 0 ml JYOTHI Q4H [facility] Last Admin: 02/07/18 19:25 Dose: Not Given Tetrahydrozoline HCl/Zinc Sulfate (Visine 0.05% Opht Soln) 2 ml OD Q4H PRN PRN Reason: itchy eyes Last Admin: 01/23/18 09:14 Dose: 1 drop Tramadol HCl (Ultram) 50 mg PO [facility] Last Admin: 02/07/18 22:02 Dose: 50 mg Zinc Sulfate (Zinc Sulfate 220 Mg Cap) 220 mg PO DAILY [facility] Last Admin: 02/07/18 09:54 Dose: 220 mg - Labs Labs: 02/02/18 07:58 02/02/18 07:58 PT 12.2 SECONDS (9.7-12.2) 01/04/18 11:43 INR 1.1 01/04/18 11:43 APTT 26 SECONDS (21-34) 01/04/18 11:43 - Constitutional Appears: No Acute Distress - Head Exam Head Exam: ATRAUMATIC, NORMAL INSPECTION - Eye Exam Eye Exam: EOMI, Normal appearance - ENT Exam ENT Exam: Mucous Membranes Moist - Respiratory Exam Respiratory Exam: Clear to Ausculation Bilateral, NORMAL BREATHING PATTERN - Cardiovascular Exam Cardiovascular Exam: REGULAR RHYTHM, +S1, +S2 - GI/Abdominal Exam GI & Abdominal Exam: Soft, Normal Bowel Sounds. absent: Tenderness - Extremities Exam Extremities Exam: Normal Inspection - Neurological Exam Neurological Exam: Alert, Awake, Oriented x3 Neuro motor strength exam: Left Upper Extremity: 0, Right Upper Extremity: 4, Left Lower Extremity: 0, Right Lower Extremity: 4 - Psychiatric Exam Psychiatric exam: Normal Affect, Normal Mood - Skin Skin Exam: Normal Color Assessment and Plan - Assessment and Plan (Free Text) Assessment: Disposition: Patient needs acute rehab at discharge, however she has no insurance. Patient to have another interview 02/19/18 for insurance approval. Will continue to work with case management for discharge plans. Per PT, patient can not use a wheelchair because she cannot transfer from bed to chair without max assistance. No changes at this time. 1.) Acute CVA affecting the right parietal/temporal area. * Dr. Castillo (neuro) consulted, help appreciated * Pureed/dysphagia diet * Head of bed elevation * PT/OT Imaging: * 01/[address]: Large hypodensity at the right brain suggestive of acute right MCA territory infarction. Suspicious for right dense MCA sign. If clinically warranted CTA of the head is suggested to evaluate for right MCA occlusion. * 01/04 CTA head and neck: Focal moderate stenosis approximately 75-80 percent noted at the origin of the right internal carotid artery with possible soft plaque. Mild approximately 55 percent stenosis noted at the origin of the left internal carotid artery. Diffuse atherosclerotic disease and calcification noted at the distal internal carotid arteries bilaterally with foci of mild stenosis noted at the supraclinoid portion of the left internal carotid artery. Diffuse approximately 50 percent stenosis of M1 segment of the right middle cerebral artery. Sharp cut off at the M1 bifurcation of the right middle cerebral artery noted. Occlusion of the anterior temporal M2 segment of the right middle cerebral artery at its origin. * 01/[address]: Acute infarct in the right frontal, parietal and temporal lobes. No acute hemorrhage. Midline shift to the left. Prior images have been requested for direct comparison. Comparison is made to prior report. * 01/04 Echo: Normal study with EF 65-70% * 01/[address]: Large right MCA and LAURI territory infarct changes which involve a large portion of the right cerebral hemisphere. The infarct exerts considerable mass effect with overlying sulcal effacement and compressive effects on the right lateral ventricle particularly the right temporal horn with mild [id number] midline shift. No evidence of acute intracranial hemorrhage. Mild underlying chronic white matter ischemic changes seen left cerebral hemisphere as well. No obstructive hydrocephalus. * 01/05 MRI Brain: Acute infarct changes involving a good portion of the right cerebral hemisphere (distal branches of the right middle cerebral artery and anterior cerebral nor arteries). Questionable early hemorrhagic conversion changes right basal ganglia evidenced by foci of dark T2 signal in these locations on gradient echo sequence with isointense T1 signal. Persistent mass effect with mild midline shift. HEMORRHAGE: Questionable early hemorrhagic conversion changes right basal ganglia evidenced by foci of dark T2 signal in these locations on gradient echo sequence with isointense T1 signal * 01/05 Lower extremity US: negative for DVT * 01/[address]: Stable large right renal infarcted involving the right anterior middle cerebral artery territories as discussed above with stable mass effect effacing the sulci of the right cerebral hemisphere in causing a limited leftward some fall seen shift of 3-4 mm once again. No interval intracranial hemorrhage or expansion of the infarcted territory appreciated. Limited age- related neuro degenerative change reiterated at the left cerebral hemisphere. * 01/[address]: Acute/ subacute right frontotemporoparietal infarct. This involves both the LAURI and MCA territory. No hemorrhage. 2-3 mm midline shift towards the left. No significant change from prior examination. * 01/[address]: Expected changes status post right frontotemporoparietal infarct now with cortical laminar necrosis. No hemorrhage. Minimal midline shift. Medications: * Norvasc 10 mg QD * Lisinopril 5 mg QD * ASA 81 mg QD * Plavix 75 mg QD * discontinued (01/16/18) Valproate 500 mg IV Q12h due to elevated liver enzymes * Seroquel 25 mg QD * Fluoxetine 10 mg QD * Zinc 220 mg QD * Gabapentin 300mg BID * Tylenol 975mg po q6h prn 2.) UTI - resolved * UA: +1 Leuk esterase * Urine culture: Klebsiella Pneumoniae * Ciprofloxacin 400 mg in 200 mls @ 133 mls/hr IVPB Q12H [facility] * Stop date: 01/31/18 * Florastor 250 PO BID 3.) Constipation - resolved * CT abdomen and pelvis without contrast: 1. Constipation with fecal stasis in the sigmoid colon and rectum. No evidence of bowel obstruction. 2. No acute abdominal or pelvic abnormality. * On colace BID * gave 1 dose of miralax today - will advance if needed 4.) Vaginal yeast infection - resolved * Diflucan 200 mg PO once 5.) Seasonal Allergies * Claritin PRN * Visine PRN * Saline Nasal [place] * Mucinex x1 dose on 01/22 6.) Heavy alcohol use * Counseled on cessation 7.) Hyperlipidemia * Cholesterol 210, Triglycerides 248, LDL 92, HDL 81 * Crestor 40 mg HS 8.) Prophylaxis * Pepcid 20 mg BID * Florastor 250 PO BID * SCDs * Claritin PRN allergy symptoms * Ensure BID * PT <VillarrealVitaliy sewell H - Last Filed: 02/08/18 10:56> Objective - Vital Signs/Intake and Output Vital Signs (last 24 hours): Temp Pulse Resp BP Pulse Ox 97.4 F L 82 18 119/77 96 02/08/18 08:50 02/08/18 09:42 02/08/18 08:50 02/08/18 09:42 02/08/18 08:50 Intake and Output: 02/08/18 02/08/18 06:59 18:59 Intake Total 240 Output Total 300 Balance -60 - Medications Medications: Current Medications Acetaminophen (Tylenol 325mg Tab) 650 mg PO Q6 PRN PRN Reason: Pain, Mild (1-3) Last Admin: 02/07/18 19:26 Dose: 650 mg Amlodipine Besylate (Norvasc) 10 mg PO DAILY [facility] Last Admin: 02/08/18 09:44 Dose: 10 mg Ascorbic Acid (Vitamin C 500 Mg Tab) 500 mg PO DAILY [facility] Last Admin: 02/08/18 09:44 Dose: 500 mg Aspirin (Aspirin Chewable) 81 mg NG DAILY [facility] Last Admin: 02/08/18 09:50 Dose: 81 mg Clopidogrel Bisulfate (Plavix) 75 mg NG DAILY [facility] Last Admin: 02/08/18 09:44 Dose: 75 mg Docusate Sodium (Colace) 100 mg PO BID [facility] Last Admin: 02/08/18 09:43 Dose: 100 mg Famotidine (Pepcid) 20 mg PO BID [facility] Last Admin: 02/08/18 09:44 Dose: 20 mg Fluoxetine HCl (Prozac) 10 mg PO DAILY [facility] Last Admin: 02/08/18 09:49 Dose: 10 mg Folic Acid (Folic Acid) 1 mg PO DAILY [facility] Last Admin: 02/08/18 09:44 Dose: 1 mg Gabapentin (Neurontin) 300 mg PO TID [facility] Last Admin: 02/08/18 09:43 Dose: 300 mg Lisinopril (Zestril) 5 mg PO DAILY [facility] Last Admin: 02/08/18 09:44 Dose: 5 mg Loratadine (Claritin) 10 mg PO DAILY PRN PRN Reason: Allergy symptoms Last Admin: 02/04/18 09:33 Dose: 10 mg Magnesium Oxide (Mag-Ox) 400 mg PO BID [facility] Last Admin: 02/08/18 09:43 Dose: 400 mg Ondansetron HCl (Zofran Inj) 4 mg IVP DAILY@ONCE PRN PRN Reason: Nausea/Vomiting Last Admin: 01/20/18 22:52 Dose: 4 mg Polyethylene Glycol (Miralax) 17 gm PO DAILY PRN PRN Reason: Constipation Quetiapine Fumarate (Seroquel) 25 mg PO DAILY [facility] Last Admin: 02/08/18 09:43 Dose: 25 mg Rosuvastatin Calcium (Crestor) 40 mg PO HS [facility] Last Admin: 02/07/18 22:02 Dose: 40 mg Sodium Chloride ([place] Baby Saline 30 Ml) 0 ml JYOTHI Q4H [facility] Last Admin: 02/08/18 08:20 Dose: Not Given Tetrahydrozoline HCl/Zinc Sulfate (Visine 0.05% Opht Soln) 2 ml OD Q4H PRN PRN Reason: itchy eyes Last Admin: 01/23/18 09:14 Dose: 1 drop Tramadol HCl (Ultram) 50 mg PO [facility] Last Admin: 02/07/18 22:02 Dose: 50 mg Zinc Sulfate (Zinc Sulfate 220 Mg Cap) 220 mg PO DAILY [facility] Last Admin: 02/08/18 09:43 Dose: 220 mg - Labs Labs: 02/02/18 07:58 02/02/18 07:58 PT 12.2 SECONDS (9.7-12.2) 01/04/18 11:43 INR 1.1 01/04/18 11:43 APTT 26 SECONDS (21-34) 01/04/18 11:43 Attending/Attestation - Attestation I have personally seen and examined this patient.: Yes I have fully participated in the care of the patient.: Yes I have reviewed all pertinent clinical information, including history, physical exam and plan: Yes Notes (Text): 02/08/18 10:53 Medical attending: Patient was seen and examined by me. Agree with the above note by the resident The patient was not in any acute distress. Tomorrow if she reports still having the parathesia - then probably can increase the gabapentin. Continue with PT - the patient thinks she is having progress with her left side. In reality the PT explain to me that she is still max assist and there isn 't muc improvement of the left side. thank you Vitaliy Villarreal
[2018-02-08] MEDS: Sodium Chloride Nasal 0.65% Soln (30ml) NAS SCH ×6 (04:00→20:30)
[2018-02-08] MEDS: Magnesium Oxide 400 mg Tab UD PO SCH ×2 (09:43→17:43)
[2018-02-09] MEDS: Sodium Chloride Nasal 0.65% Soln (30ml) NAS SCH ×5 (00:46→22:32)
[2018-02-09 07:28] LABS: BASO % 0.5 % (0.0-2.0); EOS # 0.4 K/uL (0.0-0.7); EOS % 9.2 % (0.0-4.0); HEMOGLOBIN 11.1 g/dL (11.0-16.0); LYMPH # 1.5 K/uL (1.0-4.3); LYMPH % 32.7 % (20.0-40.0); MEAN CELL VOLUME 93.6 fL (81.0-99.0); MEAN CORPUSCULAR HEMOGLOBIN 32.2 pg (27.0-31.0); MEAN CORPUSCULAR HGB CONC 34.4 g/dL (33.0-37.0); MEAN PLATELET VOLUME 8.3 fL (7.2-11.7); MONO # 0.5 K/uL (0.0-0.8); MONO % 10.9 % (0.0-10.0); NEUT # 2.2 K/uL (1.8-7.0); NEUT % 46.7 % (50.0-75.0); RBC 3.46 Mil/uL (3.80-5.20); WHITE BLOOD COUNT 4.6 K/uL (4.8-10.8)
--- NOTE | 2018-02-09 07:43 | CP.PCM.PN ---
Subjective - Date & Time of Evaluation Date of Evaluation: 02/09/18 Time of Evaluation: 07:43 - Subjective Subjective: Ms. Bui is seen and examined at the bedside. She remains alert, oriented. She denies any headache, dizziness, nausea, or vomiting. She further states of feeling positive with her physical therapy.She is able to follow simple commands, with left facial droop, left side hemiplegia, and improving left side neglect. She further claims of able to sit at the edge of bed with steady posture. There was no untoward events overnight. Objective - Vital Signs/Intake and Output Vital Signs (last 24 hours): Temp Pulse Resp BP Pulse Ox 97.7 F 82 20 105/65 100 02/08/18 23:35 02/08/18 23:35 02/08/18 23:35 02/08/18 23:35 02/08/18 23:35 Intake and Output: 02/09/18 02/09/18 06:59 18:59 Intake Total 100 Output Total 700 Balance -600 - Medications Medications: Current Medications Acetaminophen (Tylenol 325mg Tab) 650 mg PO Q6 PRN PRN Reason: Pain, Mild (1-3) Last Admin: 02/08/18 19:38 Dose: 650 mg Amlodipine Besylate (Norvasc) 10 mg PO DAILY [facility] Last Admin: 02/08/18 09:44 Dose: 10 mg Ascorbic Acid (Vitamin C 500 Mg Tab) 500 mg PO DAILY [facility] Last Admin: 02/08/18 09:44 Dose: 500 mg Aspirin (Aspirin Chewable) 81 mg NG DAILY [facility] Last Admin: 02/08/18 09:50 Dose: 81 mg Clopidogrel Bisulfate (Plavix) 75 mg NG DAILY [facility] Last Admin: 02/08/18 09:44 Dose: 75 mg Docusate Sodium (Colace) 100 mg PO BID [facility] Last Admin: 02/08/18 17:43 Dose: 100 mg Famotidine (Pepcid) 20 mg PO BID [facility] Last Admin: 02/08/18 17:43 Dose: 20 mg Fluoxetine HCl (Prozac) 10 mg PO DAILY [facility] Last Admin: 02/08/18 09:49 Dose: 10 mg Folic Acid (Folic Acid) 1 mg PO DAILY [facility] Last Admin: 02/08/18 09:44 Dose: 1 mg Gabapentin (Neurontin) 300 mg PO TID [facility] Last Admin: 02/08/18 17:43 Dose: 300 mg Lisinopril (Zestril) 5 mg PO DAILY [facility] Last Admin: 02/08/18 09:44 Dose: 5 mg Loratadine (Claritin) 10 mg PO DAILY PRN PRN Reason: Allergy symptoms Last Admin: 02/08/18 11:54 Dose: 10 mg Magnesium Oxide (Mag-Ox) 400 mg PO BID [facility] Last Admin: 02/08/18 17:43 Dose: 400 mg Ondansetron HCl (Zofran Inj) 4 mg IVP DAILY@ONCE PRN PRN Reason: Nausea/Vomiting Last Admin: 01/20/18 22:52 Dose: 4 mg Polyethylene Glycol (Miralax) 17 gm PO DAILY PRN PRN Reason: Constipation Quetiapine Fumarate (Seroquel) 25 mg PO DAILY [facility] Last Admin: 02/08/18 09:43 Dose: 25 mg Rosuvastatin Calcium (Crestor) 40 mg PO [facility] Last Admin: 02/08/18 21:28 Dose: 40 mg Sodium Chloride ([place] Baby Saline 30 Ml) 0 ml JYOTHI Q4H [facility] Last Admin: 02/09/18 03:01 Dose: Not Given Tetrahydrozoline HCl/Zinc Sulfate (Visine 0.05% Opht Soln) 2 ml OD Q4H PRN PRN Reason: itchy eyes Last Admin: 01/23/18 09:14 Dose: 1 drop Tramadol HCl (Ultram) 50 mg PO [facility] Last Admin: 02/08/18 21:28 Dose: 50 mg Zinc Sulfate (Zinc Sulfate 220 Mg Cap) 220 mg PO DAILY [facility] Last Admin: 02/08/18 09:43 Dose: 220 mg - Labs Labs: 02/09/18 07:20 02/02/18 07:58 PT 12.2 SECONDS (9.7-12.2) 01/04/18 11:43 INR 1.1 01/04/18 11:43 APTT 26 SECONDS (21-34) 01/04/18 11:43 - Constitutional Appears: No Acute Distress - Head Exam Head Exam: NORMAL INSPECTION - Eye Exam Pupil Exam: PERRL - Neurological Exam Neurological Exam: Alert, Awake, Oriented x3 Neuro motor strength exam: Left Upper Extremity: 0, Right Upper Extremity: 5, Left Lower Extremity: 2/1, Right Lower Extremity: 5 Additional comments: Neurological unchanged from previous examination. Assessment and Plan (1) CVA (cerebral vascular accident) Assessment & Plan: Case discussed with Dr. Castillo, continue all current medical, physical, and occupational therapies. Recommend to let physical therapy work on her left side muscle aches. Recommend head of bed elevated, blood pressure and glycemic control. Status: Acute
[2018-02-09 07:56] LABS: ALBUMIN 3.4 g/dL (3.5-5.0); BLOOD UREA NITROGEN 15 mg/dL (7-17); CALCIUM 9.8 mg/dl (8.6-10.4); GFR AFRICAN-AMERICAN > 60; GFR NON-AFRICAN AMERICAN > 60
[2018-02-09 07:57] LABS: ALT/SGPT 25 U/L (9-52); AST/SGOT 27 U/L (14-36)
[2018-02-09] MEDS: Magnesium Oxide 400 mg Tab UD PO SCH ×2 (09:22→17:57)
--- NOTE | 2018-02-09 09:36 | CP.PCM.PN ---
<Eileen Anaya MoisésNicole - Last Filed: 02/09/18 16:24> Subjective - Date & Time of Evaluation Date of Evaluation: 02/09/18 Time of Evaluation: 07:00 - Subjective Subjective: Medicine Progress Note: Patient was seen and examined at bedside in the AM. Patient states she continues to have some pain in the left side, thigh, arm with tingling. Patient continues to have paralysis of LUE and LLE. Patient states she had a bowel movement with the addition of Lactulose on Friday. She denies dizziness , fever, chills, chest pain, SOB, and swelling in the lower extremities. Objective - Vital Signs/Intake and Output Vital Signs (last 24 hours): Temp Pulse Resp BP Pulse Ox 98.2 F 75 20 113/72 99 02/09/18 07:05 02/09/18 07:05 02/09/18 07:05 02/09/18 07:05 02/09/18 07:05 Intake and Output: 02/09/18 02/09/18 06:59 18:59 Intake Total 100 Output Total 700 Balance -600 - Medications Medications: Current Medications Acetaminophen (Tylenol 325mg Tab) 650 mg PO Q6 PRN PRN Reason: Pain, Mild (1-3) Last Admin: 02/08/18 19:38 Dose: 650 mg Amlodipine Besylate (Norvasc) 10 mg PO DAILY [facility] Last Admin: 02/09/18 09:20 Dose: 10 mg Ascorbic Acid (Vitamin C 500 Mg Tab) 500 mg PO DAILY [facility] Last Admin: 02/09/18 09:21 Dose: 500 mg Aspirin (Aspirin Chewable) 81 mg NG DAILY [facility] Last Admin: 02/09/18 09:21 Dose: 81 mg Clopidogrel Bisulfate (Plavix) 75 mg NG DAILY [facility] Last Admin: 02/09/18 09:21 Dose: 75 mg Docusate Sodium (Colace) 100 mg PO BID [facility] Last Admin: 02/09/18 09:20 Dose: 100 mg Famotidine (Pepcid) 20 mg PO BID [facility] Last Admin: 02/09/18 09:23 Dose: 20 mg Fluoxetine HCl (Prozac) 10 mg PO DAILY [facility] Last Admin: 02/09/18 09:22 Dose: 10 mg Folic Acid (Folic Acid) 1 mg PO DAILY [facility] Last Admin: 02/09/18 09:20 Dose: 1 mg Gabapentin (Neurontin) 300 mg PO TID [facility] Last Admin: 02/09/18 09:22 Dose: 300 mg Lisinopril (Zestril) 5 mg PO DAILY [facility] Last Admin: 02/09/18 09:22 Dose: 5 mg Loratadine (Claritin) 10 mg PO DAILY PRN PRN Reason: Allergy symptoms Last Admin: 02/08/18 11:54 Dose: 10 mg Magnesium Oxide (Mag-Ox) 400 mg PO BID [facility] Last Admin: 02/09/18 09:22 Dose: 400 mg Ondansetron HCl (Zofran Inj) 4 mg IVP DAILY@ONCE PRN PRN Reason: Nausea/Vomiting Last Admin: 01/20/18 22:52 Dose: 4 mg Polyethylene Glycol (Miralax) 17 gm PO DAILY PRN PRN Reason: Constipation Quetiapine Fumarate (Seroquel) 25 mg PO DAILY [facility] Last Admin: 02/09/18 09:22 Dose: 25 mg Rosuvastatin Calcium (Crestor) [address] [facility] Last Admin: 02/08/18 21:28 Dose: 40 mg Sodium Chloride (Frohna Baby Saline 30 Ml) 0 ml JYOTHI Q4H [facility] Last Admin: 02/09/18 09:23 Dose: Not Given Tetrahydrozoline HCl/Zinc Sulfate (Visine 0.05% Opht Soln) 2 ml OD Q4H PRN PRN Reason: itchy eyes Last Admin: 01/23/18 09:14 Dose: 1 drop Tramadol HCl (Ultram) [address] [facility] Last Admin: 02/08/18 21:28 Dose: 50 mg Zinc Sulfate (Zinc Sulfate 220 Mg Cap) 220 mg PO DAILY [facility] Last Admin: 02/09/18 09:21 Dose: 220 mg - Labs Labs: 02/09/18 07:20 02/09/18 07:20 PT 12.2 SECONDS (9.7-12.2) 01/04/18 11:43 INR 1.1 01/04/18 11:43 APTT 26 SECONDS (21-34) 01/04/18 11:43 - Constitutional Appears: Non-toxic, No Acute Distress - Head Exam Head Exam: ATRAUMATIC, NORMAL INSPECTION - Eye Exam Eye Exam: EOMI, Normal appearance. absent: Scleral icterus - ENT Exam ENT Exam: Mucous Membranes Moist - Respiratory Exam Respiratory Exam: Clear to Ausculation Bilateral, NORMAL BREATHING PATTERN - Cardiovascular Exam Cardiovascular Exam: REGULAR RHYTHM, +S1, +S2 - GI/Abdominal Exam GI & Abdominal Exam: Soft, Normal Bowel Sounds. absent: Tenderness - Extremities Exam Extremities Exam: Normal Inspection - Neurological Exam Neurological Exam: Alert, Awake, Oriented x3 Neuro motor strength exam: Left Upper Extremity: 0, Right Upper Extremity: 4, Left Lower Extremity: 0, Right Lower Extremity: 4 - Psychiatric Exam Psychiatric exam: Normal Affect - Skin Skin Exam: Normal Color Assessment and Plan - Assessment and Plan (Free Text) Assessment: Disposition: Patient needs acute rehab at discharge, however she has no insurance. Patient to have another interview 02/19/18 for insurance approval. Will continue to work with case management for discharge plans. Per PT, patient can not use a wheelchair because she cannot transfer from bed to chair without max assistance. No changes at this time. 1.) Acute CVA affecting the right parietal/temporal area. * Dr. Castillo (neuro) consulted, help appreciated * Pureed/dysphagia diet * Head of bed elevation * PT/OT Imaging: * 01/[address]: Large hypodensity at the right brain suggestive of acute right MCA territory infarction. Suspicious for right dense MCA sign. If clinically warranted CTA of the head is suggested to evaluate for right MCA occlusion. * 01/04 CTA head and neck: Focal moderate stenosis approximately 75-80 percent noted at the origin of the right internal carotid artery with possible soft plaque. Mild approximately 55 percent stenosis noted at the origin of the left internal carotid artery. Diffuse atherosclerotic disease and calcification noted at the distal internal carotid arteries bilaterally with foci of mild stenosis noted at the supraclinoid portion of the left internal carotid artery. Diffuse approximately 50 percent stenosis of M1 segment of the right middle cerebral artery. Sharp cut off at the M1 bifurcation of the right middle cerebral artery noted. Occlusion of the anterior temporal M2 segment of the right middle cerebral artery at its origin. * 01/[address]: Acute infarct in the right frontal, parietal and temporal lobes. No acute hemorrhage. Midline shift to the left. Prior images have been requested for direct comparison. Comparison is made to prior report. * 01/04 Echo: Normal study with EF 65-70% * 01/[address]: Large right MCA and LAURI territory infarct changes which involve a large portion of the right cerebral hemisphere. The infarct exerts considerable mass effect with overlying sulcal effacement and compressive effects on the right lateral ventricle particularly the right temporal horn with mild [id number] midline shift. No evidence of acute intracranial hemorrhage. Mild underlying chronic white matter ischemic changes seen left cerebral hemisphere as well. No obstructive hydrocephalus. * 01/05 MRI Brain: Acute infarct changes involving a good portion of the right cerebral hemisphere (distal branches of the right middle cerebral artery and anterior cerebral nor arteries). Questionable early hemorrhagic conversion changes right basal ganglia evidenced by foci of dark T2 signal in these locations on gradient echo sequence with isointense T1 signal. Persistent mass effect with mild midline shift. HEMORRHAGE: Questionable early hemorrhagic conversion changes right basal ganglia evidenced by foci of dark T2 signal in these locations on gradient echo sequence with isointense T1 signal * 01/05 Lower extremity US: negative for DVT * 01/[address]: Stable large right renal infarcted involving the right anterior middle cerebral artery territories as discussed above with stable mass effect effacing the sulci of the right cerebral hemisphere in causing a limited leftward some fall seen shift of 3-4 mm once again. No interval intracranial hemorrhage or expansion of the infarcted territory appreciated. Limited age- related neuro degenerative change reiterated at the left cerebral hemisphere. * 01/[address]: Acute/ subacute right frontotemporoparietal infarct. This involves both the LAURI and MCA territory. No hemorrhage. 2-3 mm midline shift towards the left. No significant change from prior examination. * 01/[address]: Expected changes status post right frontotemporoparietal infarct now with cortical laminar necrosis. No hemorrhage. Minimal midline shift. Medications: * Norvasc 10 mg QD * Lisinopril 5 mg QD * ASA 81 mg QD * Plavix 75 mg QD * discontinued (01/16/18) Valproate 500 mg IV Q12h due to elevated liver enzymes * Seroquel 25 mg QD * Fluoxetine 10 mg QD * Zinc 220 mg QD * Gabapentin 300mg BID * Tylenol 975mg po q6h prn 2.) UTI - resolved * UA: +1 Leuk esterase * Urine culture: Klebsiella Pneumoniae * Ciprofloxacin 400 mg in 200 mls @ 133 mls/hr IVPB Q12H [facility] * Stop date: 01/31/18 * Florastor 250 PO BID 3.) Constipation - resolved * CT abdomen and pelvis without contrast: 1. Constipation with fecal stasis in the sigmoid colon and rectum. No evidence of bowel obstruction. 2. No acute abdominal or pelvic abnormality. * On colace BID * gave 1 dose of miralax today - will advance if needed 4.) Vaginal yeast infection - resolved * Diflucan 200 mg PO once 5.) Seasonal Allergies * Claritin PRN * Visine PRN * Saline Nasal [place] * Mucinex x1 dose on 01/22 6.) Heavy alcohol use * Counseled on cessation 7.) Hyperlipidemia * Cholesterol 210, Triglycerides 248, LDL 92, HDL 81 * Crestor 40 mg HS 8.) Prophylaxis * Pepcid 20 mg BID * Florastor 250 PO BID * SCDs * Claritin PRN allergy symptoms * Ensure BID * PT <Lacy Keenan - Last Filed: 02/10/18 17:16> Objective - Vital Signs/Intake and Output Vital Signs (last 24 hours): Temp Pulse Resp BP Pulse Ox 97.5 F L 98 H 20 139/60 98 02/10/18 15:00 02/10/18 15:00 02/10/18 15:00 02/10/18 15:00 02/10/18 15:00 Intake and Output: 02/10/18 02/10/18 06:59 18:59 Intake Total 800 800 Output Total 250 Balance 550 800 - Medications Medications: Current Medications Acetaminophen (Tylenol 325mg Tab) 650 mg PO Q6 PRN PRN Reason: Pain, Mild (1-3) Amlodipine Besylate (Norvasc) 10 mg PO DAILY [facility] Last Admin: 02/10/18 10:09 Dose: 10 mg Ascorbic Acid (Vitamin C 500 Mg Tab) 500 mg PO DAILY [facility] Last Admin: 02/10/18 10:10 Dose: 500 mg Aspirin (Aspirin Chewable) 81 mg NG DAILY [facility] Last Admin: 02/10/18 10:09 Dose: 81 mg Clopidogrel Bisulfate (Plavix) 75 mg NG DAILY [facility] Last Admin: 02/10/18 10:09 Dose: 75 mg Docusate Sodium (Colace) 100 mg PO BID [facility] Last Admin: 02/10/18 10:09 Dose: 100 mg Famotidine (Pepcid) 20 mg PO BID [facility] Last Admin: 02/10/18 10:09 Dose: 20 mg Fluoxetine HCl (Prozac) 10 mg PO DAILY [facility] Last Admin: 02/10/18 10:08 Dose: 10 mg Folic Acid (Folic Acid) 1 mg PO DAILY [facility] Last Admin: 02/10/18 10:09 Dose: 1 mg Gabapentin (Neurontin) 300 mg PO TID [facility] Last Admin: 02/10/18 13:40 Dose: 300 mg Lisinopril (Zestril) 5 mg PO DAILY [facility] Last Admin: 02/10/18 10:09 Dose: 5 mg Loratadine (Claritin) 10 mg PO DAILY PRN PRN Reason: Allergy symptoms Magnesium Oxide (Mag-Ox) 400 mg PO BID [facility] Last Admin: 02/10/18 10:09 Dose: 400 mg Ondansetron HCl (Zofran Inj) 4 mg IVP DAILY@ONCE PRN PRN Reason: Nausea/Vomiting Polyethylene Glycol (Miralax) 17 gm PO DAILY PRN PRN Reason: Constipation Quetiapine Fumarate (Seroquel) 25 mg PO DAILY [facility] Last Admin: 02/10/18 10:10 Dose: 25 mg Rosuvastatin Calcium (Crestor) [address] [facility] Sodium Chloride (Frohna Baby Saline 30 Ml) 0 ml JYOTHI Q4H [facility] Last Admin: 02/10/18 12:08 Dose: 2 sprays Tetrahydrozoline HCl/Zinc Sulfate (Visine 0.05% Opht Soln) 2 ml OD Q4H PRN PRN Reason: itchy eyes Last Admin: 01/23/18 09:14 Dose: 1 drop Tramadol HCl (Ultram) [address] [facility] Zinc Sulfate (Zinc Sulfate 220 Mg Cap) 220 mg PO DAILY [facility] Last Admin: 02/10/18 10:25 Dose: Not Given - Labs Labs: 02/09/18 07:20 02/09/18 07:20 PT 12.2 SECONDS (9.7-12.2) 01/04/18 11:43 INR 1.1 01/04/18 11:43 APTT 26 SECONDS (21-34) 01/04/18 11:43 Attending/Attestation - Attestation I have personally seen and examined this patient.: Yes I have fully participated in the care of the patient.: Yes I have reviewed all pertinent clinical information, including history, physical exam and plan: Yes Notes (Text): seen and examined by me No changes Discussed about diet and exercise. D/W resident Agrees with the documentation
[2018-02-10] MEDS: Sodium Chloride Nasal 0.65% Soln (30ml) NAS SCH ×6 (03:49→21:14)
[2018-02-10] MEDS ORDERED: POLYETHYLENE GLYCOL 3350 17 GM/Dose PACKET PO PRN (08:26)
[2018-02-10] MEDS: Magnesium Oxide 400 mg Tab UD PO SCH ×2 (10:09→17:59)
--- NOTE | 2018-02-10 11:45 | CP.PCM.PN ---
<HéctorEileen MoisésNicole - Last Filed: 02/10/18 14:44> Subjective - Date & Time of Evaluation Date of Evaluation: 02/10/18 Time of Evaluation: 07:00 - Subjective Subjective: Medicine Progress Note: Patient was seen and examined at bedside in the AM. Patient states she continues to have some pain on her left ankle. Patient continues to have paralysis of LUE and LLE. She denies dizziness, fever, chills, chest pain, SOB , and swelling in the lower extremities. Objective - Vital Signs/Intake and Output Vital Signs (last 24 hours): Temp Pulse Resp BP Pulse Ox 98.2 F 82 18 132/86 97 02/10/18 08:00 02/10/18 08:00 02/10/18 08:00 02/10/18 08:00 02/10/18 08:00 Intake and Output: 02/10/18 02/10/18 06:59 18:59 Intake Total 800 Output Total 250 Balance 550 - Medications Medications: Current Medications Acetaminophen (Tylenol 325mg Tab) 650 mg PO Q6 PRN PRN Reason: Pain, Mild (1-3) Amlodipine Besylate (Norvasc) 10 mg PO DAILY [facility] Last Admin: 02/10/18 10:09 Dose: 10 mg Ascorbic Acid (Vitamin C 500 Mg Tab) 500 mg PO DAILY [facility] Last Admin: 02/10/18 10:10 Dose: 500 mg Aspirin (Aspirin Chewable) 81 mg NG DAILY [facility] Last Admin: 02/10/18 10:09 Dose: 81 mg Clopidogrel Bisulfate (Plavix) 75 mg NG DAILY [facility] Last Admin: 02/10/18 10:09 Dose: 75 mg Docusate Sodium (Colace) 100 mg PO BID [facility] Last Admin: 02/10/18 10:09 Dose: 100 mg Famotidine (Pepcid) 20 mg PO BID [facility] Last Admin: 02/10/18 10:09 Dose: 20 mg Fluoxetine HCl (Prozac) 10 mg PO DAILY [facility] Last Admin: 02/10/18 10:08 Dose: 10 mg Folic Acid (Folic Acid) 1 mg PO DAILY [facility] Last Admin: 02/10/18 10:09 Dose: 1 mg Gabapentin (Neurontin) 300 mg PO TID [facility] Last Admin: 02/10/18 10:08 Dose: 300 mg Lisinopril (Zestril) 5 mg PO DAILY [facility] Last Admin: 02/10/18 10:09 Dose: 5 mg Loratadine (Claritin) 10 mg PO DAILY PRN PRN Reason: Allergy symptoms Magnesium Oxide (Mag-Ox) 400 mg PO BID [facility] Last Admin: 02/10/18 10:09 Dose: 400 mg Ondansetron HCl (Zofran Inj) 4 mg IVP DAILY@ONCE PRN PRN Reason: Nausea/Vomiting Polyethylene Glycol (Miralax) 17 gm PO DAILY PRN PRN Reason: Constipation Quetiapine Fumarate (Seroquel) 25 mg PO DAILY [facility] Last Admin: 02/10/18 10:10 Dose: 25 mg Rosuvastatin Calcium (Crestor) 40 mg PO [facility] Sodium Chloride (Mobile Baby Saline 30 Ml) 0 ml JYOTHI Q4H COUNT INCLUDES [facility] Last Admin: 02/10/18 08:38 Dose: 2 sprays Tetrahydrozoline HCl/Zinc Sulfate (Visine 0.05% Opht Soln) 2 ml OD Q4H PRN PRN Reason: itchy eyes Last Admin: 01/23/18 09:14 Dose: 1 drop Tramadol HCl (Ultram) 50 mg PO [facility] Zinc Sulfate (Zinc Sulfate 220 Mg Cap) 220 mg PO DAILY [facility] Last Admin: 02/10/18 10:25 Dose: Not Given - Labs Labs: 02/09/18 07:20 02/09/18 07:20 PT 12.2 SECONDS (9.7-12.2) 01/04/18 11:43 INR 1.1 01/04/18 11:43 APTT 26 SECONDS (21-34) 01/04/18 11:43 - Constitutional Appears: No Acute Distress - Head Exam Head Exam: ATRAUMATIC, NORMAL INSPECTION - Eye Exam Eye Exam: EOMI, Normal appearance - ENT Exam ENT Exam: Mucous Membranes Moist - Respiratory Exam Respiratory Exam: Clear to Ausculation Bilateral, NORMAL BREATHING PATTERN - Cardiovascular Exam Cardiovascular Exam: REGULAR RHYTHM, +S1, +S2 - GI/Abdominal Exam GI & Abdominal Exam: Soft, Normal Bowel Sounds. absent: Tenderness - Extremities Exam Extremities Exam: Normal Inspection - Neurological Exam Neurological Exam: Alert, Awake, Oriented x3 Neuro motor strength exam: Left Upper Extremity: 0, Right Upper Extremity: 4, Left Lower Extremity: 0, Right Lower Extremity: 4 - Psychiatric Exam Psychiatric exam: Normal Affect, Normal Mood - Skin Skin Exam: Normal Color Assessment and Plan - Assessment and Plan (Free Text) Assessment: Disposition: Patient needs acute rehab at discharge Insurance has been approved. Pending placement. Will continue to work with case management for discharge plans. Per PT, patient can not use a wheelchair because she cannot transfer from bed to chair without max assistance. 1.) Acute CVA affecting the right parietal/temporal area. * Dr. Castillo (neuro) consulted, help appreciated * Pureed/dysphagia diet * Head of bed elevation * PT/OT Imaging: * 01/[address]: Large hypodensity at the right brain suggestive of acute right MCA territory infarction. Suspicious for right dense MCA sign. If clinically warranted CTA of the head is suggested to evaluate for right MCA occlusion. * 01/04 CTA head and neck: Focal moderate stenosis approximately 75-80 percent noted at the origin of the right internal carotid artery with possible soft plaque. Mild approximately 55 percent stenosis noted at the origin of the left internal carotid artery. Diffuse atherosclerotic disease and calcification noted at the distal internal carotid arteries bilaterally with foci of mild stenosis noted at the supraclinoid portion of the left internal carotid artery. Diffuse approximately 50 percent stenosis of M1 segment of the right middle cerebral artery. Sharp cut off at the M1 bifurcation of the right middle cerebral artery noted. Occlusion of the anterior temporal M2 segment of the right middle cerebral artery at its origin. * 01/[address]: Acute infarct in the right frontal, parietal and temporal lobes. No acute hemorrhage. Midline shift to the left. Prior images have been requested for direct comparison. Comparison is made to prior report. * 01/04 Echo: Normal study with EF 65-70% * 01/[address]: Large right MCA and LAURI territory infarct changes which involve a large portion of the right cerebral hemisphere. The infarct exerts considerable mass effect with overlying sulcal effacement and compressive effects on the right lateral ventricle particularly the right temporal horn with mild [id number] midline shift. No evidence of acute intracranial hemorrhage. Mild underlying chronic white matter ischemic changes seen left cerebral hemisphere as well. No obstructive hydrocephalus. * 01/05 MRI Brain: Acute infarct changes involving a good portion of the right cerebral hemisphere (distal branches of the right middle cerebral artery and anterior cerebral nor arteries). Questionable early hemorrhagic conversion changes right basal ganglia evidenced by foci of dark T2 signal in these locations on gradient echo sequence with isointense T1 signal. Persistent mass effect with mild midline shift. HEMORRHAGE: Questionable early hemorrhagic conversion changes right basal ganglia evidenced by foci of dark T2 signal in these locations on gradient echo sequence with isointense T1 signal * 01/05 Lower extremity US: negative for DVT * 01/[address]: Stable large right renal infarcted involving the right anterior middle cerebral artery territories as discussed above with stable mass effect effacing the sulci of the right cerebral hemisphere in causing a limited leftward some fall seen shift of 3-4 mm once again. No interval intracranial hemorrhage or expansion of the infarcted territory appreciated. Limited age- related neuro degenerative change reiterated at the left cerebral hemisphere. * 01/[address]: Acute/ subacute right frontotemporoparietal infarct. This involves both the LAURI and MCA territory. No hemorrhage. 2-3 mm midline shift towards the left. No significant change from prior examination. * 01/[address]: Expected changes status post right frontotemporoparietal infarct now with cortical laminar necrosis. No hemorrhage. Minimal midline shift. Medications: * Norvasc 10 mg QD * Lisinopril 5 mg QD * ASA 81 mg QD * Plavix 75 mg QD * discontinued (01/16/18) Valproate 500 mg IV Q12h due to elevated liver enzymes * Seroquel 25 mg QD * Fluoxetine 10 mg QD * Zinc 220 mg QD * Gabapentin 300mg BID * Tylenol 975mg po q6h prn 2.) UTI - resolved * UA: +1 Leuk esterase * Urine culture: Klebsiella Pneumoniae * Ciprofloxacin 400 mg in 200 mls @ 133 mls/hr IVPB Q12H [facility] * Stop date: 01/31/18 * Florastor 250 PO BID 3.) Constipation - resolved * CT abdomen and pelvis without contrast: 1. Constipation with fecal stasis in the sigmoid colon and rectum. No evidence of bowel obstruction. 2. No acute abdominal or pelvic abnormality. * On colace BID * gave 1 dose of miralax today - will advance if needed 4.) Vaginal yeast infection - resolved * Diflucan 200 mg PO once 5.) Seasonal Allergies * Claritin PRN * Visine PRN * Saline Nasal Curtis * Mucinex x1 dose on 01/22 6.) Heavy alcohol use * Counseled on cessation 7.) Hyperlipidemia * Cholesterol 210, Triglycerides 248, LDL 92, HDL 81 * Crestor 40 mg HS 8.) Prophylaxis * Pepcid 20 mg BID * Florastor 250 PO BID * SCDs * Claritin PRN allergy symptoms * Ensure BID * PT <Lacy Keenan - Last Filed: 02/10/18 17:17> Objective - Vital Signs/Intake and Output Vital Signs (last 24 hours): Temp Pulse Resp BP Pulse Ox 97.5 F L 98 H 20 139/60 98 02/10/18 15:00 02/10/18 15:00 02/10/18 15:00 02/10/18 15:00 02/10/18 15:00 Intake and Output: 02/10/18 02/10/18 06:59 18:59 Intake Total 800 800 Output Total 250 Balance 550 800 - Medications Medications: Current Medications Acetaminophen (Tylenol 325mg Tab) 650 mg PO Q6 PRN PRN Reason: Pain, Mild (1-3) Amlodipine Besylate (Norvasc) 10 mg PO DAILY COUNT [facility] Last Admin: 02/10/18 10:09 Dose: 10 mg Ascorbic Acid (Vitamin C 500 Mg Tab) 500 mg PO DAILY COUNT [facility] Last Admin: 02/10/18 10:10 Dose: 500 mg Aspirin (Aspirin Chewable) 81 mg NG DAILY COUNT [facility] Last Admin: 02/10/18 10:09 Dose: 81 mg Clopidogrel Bisulfate (Plavix) 75 mg NG DAILY [facility] Last Admin: 02/10/18 10:09 Dose: 75 mg Docusate Sodium (Colace) 100 mg PO BID [facility] Last Admin: 02/10/18 10:09 Dose: 100 mg Famotidine (Pepcid) 20 mg PO BID [facility] Last Admin: 02/10/18 10:09 Dose: 20 mg Fluoxetine HCl (Prozac) 10 mg PO DAILY [facility] Last Admin: 02/10/18 10:08 Dose: 10 mg Folic Acid (Folic Acid) 1 mg PO DAILY [facility] Last Admin: 02/10/18 10:09 Dose: 1 mg Gabapentin (Neurontin) 300 mg PO TID [facility] Last Admin: 02/10/18 13:40 Dose: 300 mg Lisinopril (Zestril) 5 mg PO DAILY [facility] Last Admin: 02/10/18 10:09 Dose: 5 mg Loratadine (Claritin) 10 mg PO DAILY PRN PRN Reason: Allergy symptoms Magnesium Oxide (Mag-Ox) 400 mg PO BID [facility] Last Admin: 02/10/18 10:09 Dose: 400 mg Ondansetron HCl (Zofran Inj) 4 mg IVP DAILY@ONCE PRN PRN Reason: Nausea/Vomiting Polyethylene Glycol (Miralax) 17 gm PO DAILY PRN PRN Reason: Constipation Quetiapine Fumarate (Seroquel) 25 mg PO DAILY [facility] Last Admin: 02/10/18 10:10 Dose: 25 mg Rosuvastatin Calcium (Crestor) 40 mg PO HS [facility] Sodium Chloride (Mobile Baby Saline 30 Ml) 0 ml JYOTHI Q4H [facility] Last Admin: 02/10/18 12:08 Dose: 2 sprays Tetrahydrozoline HCl/Zinc Sulfate (Visine 0.05% Opht Soln) 2 ml OD Q4H PRN PRN Reason: itchy eyes Last Admin: 01/23/18 09:14 Dose: 1 drop Tramadol HCl (Ultram) 50 mg PO HS [facility] Zinc Sulfate (Zinc Sulfate 220 Mg Cap) 220 mg PO DAILY [facility] Last Admin: 02/10/18 10:25 Dose: Not Given - Labs Labs: 02/09/18 07:20 02/09/18 07:20 PT 12.2 SECONDS (9.7-12.2) 01/04/18 11:43 INR 1.1 01/04/18 11:43 APTT 26 SECONDS (21-34) 01/04/18 11:43 Attending/Attestation - Attestation I have personally seen and examined this patient.: No I have fully participated in the care of the patient.: Yes I have reviewed all pertinent clinical information, including history, physical exam and plan: Yes Notes (Text): d/w CW and the resident about pending rehab placement 02/10/18 17:17
[2018-02-10 20:15] LABS: SQUAMOUS EPITHIAL < 1 /hpf (0-5); URINE BILIRUBIN NEGATIVE (NEGATIVE); URINE BLOOD NEGATIVE (NEGATIVE); URINE CLARITY Clear (Clear); URINE COLOR Straw (YELLOW); URINE GLUCOSE (UA) NORMAL (Normal); URINE LEUKOCYTE ESTERASE NEG Leu/uL (Negative); URINE PROTEIN NEGATIVE (NEGATIVE); URINE UROBILINOGEN NORMAL mg/dL (0.2-1.0)
[2018-02-11] MEDS: Sodium Chloride Nasal 0.65% Soln (30ml) NAS SCH ×6 (04:00→21:06)
--- NOTE | 2018-02-11 08:26 | CP.PCM.PN ---
Subjective - Date & Time of Evaluation Date of Evaluation: 02/11/18 Time of Evaluation: 08:26 - Subjective Subjective: Ms. Bui is seen and examined at the bedside. She remains alert, oriented. She denies any headache, dizziness, nausea, or vomiting. She further states of feeling positive with rehab placment.She is able to follow simple commands, with left facial droop, left side hemiplegia, and improving left side neglect. There was no untoward events overnight. Objective - Vital Signs/Intake and Output Vital Signs (last 24 hours): Temp Pulse Resp BP Pulse Ox 97.7 F 84 20 127/80 98 02/10/18 23:30 02/10/18 23:30 02/10/18 23:30 02/10/18 23:30 02/10/18 23:30 Intake and Output: 02/11/18 02/11/18 06:59 18:59 Output Total 1200 Balance -1200 - Medications Medications: Current Medications Acetaminophen (Tylenol 325mg Tab) 650 mg PO Q6H PRN PRN Reason: Pain, Mild (1-3) Last Admin: 02/11/18 01:44 Dose: 650 mg Amlodipine Besylate (Norvasc) 10 mg PO DAILY [facility] Last Admin: 02/10/18 10:09 Dose: 10 mg Ascorbic Acid (Vitamin C 500 Mg Tab) 500 mg PO DAILY [facility] Last Admin: 02/10/18 10:10 Dose: 500 mg Aspirin (Aspirin Chewable) 81 mg NG DAILY [facility] Last Admin: 02/10/18 10:09 Dose: 81 mg Clopidogrel Bisulfate (Plavix) 75 mg NG DAILY [facility] Last Admin: 02/10/18 10:09 Dose: 75 mg Docusate Sodium (Colace) 100 mg PO BID [facility] Last Admin: 02/10/18 17:59 Dose: 100 mg Famotidine (Pepcid) 20 mg PO BID [facility] Last Admin: 02/10/18 17:59 Dose: 20 mg Fluoxetine HCl (Prozac) 10 mg PO DAILY [facility] Last Admin: 02/10/18 10:08 Dose: 10 mg Folic Acid (Folic Acid) 1 mg PO DAILY [facility] Last Admin: 02/10/18 10:09 Dose: 1 mg Gabapentin (Neurontin) 300 mg PO TID [facility] Last Admin: 02/10/18 17:59 Dose: 300 mg Lisinopril (Zestril) 5 mg PO DAILY [facility] Last Admin: 02/10/18 10:09 Dose: 5 mg Loratadine (Claritin) 10 mg PO DAILY PRN PRN Reason: Allergy symptoms Magnesium Oxide (Mag-Ox) 400 mg PO BID [facility] Last Admin: 02/10/18 17:59 Dose: 400 mg Ondansetron HCl (Zofran Inj) 4 mg IVP DAILY@ONCE PRN PRN Reason: Nausea/Vomiting Polyethylene Glycol (Miralax) 17 gm PO DAILY PRN PRN Reason: Constipation Quetiapine Fumarate (Seroquel) 25 mg PO DAILY [facility] Last Admin: 02/10/18 10:10 Dose: 25 mg Rosuvastatin Calcium (Crestor) 40 mg PO HS [facility] Last Admin: 02/10/18 21:13 Dose: 40 mg Sodium Chloride ([place] Baby Saline 30 Ml) 0 ml JYOTHI Q4H [facility] Last Admin: 02/11/18 08:05 Dose: 2 sprays Tetrahydrozoline HCl/Zinc Sulfate (Visine 0.05% Opht Soln) 2 ml OD Q4H PRN PRN Reason: itchy eyes Last Admin: 01/23/18 09:14 Dose: 1 drop Tramadol HCl (Ultram) 50 mg PO [facility] Last Admin: 02/10/18 21:13 Dose: 50 mg Zinc Sulfate (Zinc Sulfate 220 Mg Cap) 220 mg PO DAILY [facility] Last Admin: 02/10/18 10:25 Dose: Not Given - Labs Labs: 02/09/18 07:20 02/09/18 07:20 PT 12.2 SECONDS (9.7-12.2) 01/04/18 11:43 INR 1.1 01/04/18 11:43 APTT 26 SECONDS (21-34) 01/04/18 11:43 - Constitutional Appears: No Acute Distress - Head Exam Head Exam: NORMAL INSPECTION - Eye Exam Pupil Exam: PERRL - Neurological Exam Neurological Exam: Alert, Awake, Oriented x3 Neuro motor strength exam: Left Upper Extremity: 2/1, Right Upper Extremity: 5, Left Lower Extremity: 2/1, Right Lower Extremity: 5 Additional comments: Neurological unchanged from previous examination. Assessment and Plan (1) CVA (cerebral vascular accident) Assessment & Plan: Case discussed with Dr. Castillo, continue all current medical, physical, and occupational therapies. Recommend head of bed elevated, hydration, blood pressure and glycemic control. There is no new recommendations from neurology. Status: Acute
[2018-02-11] MEDS: Magnesium Oxide 400 mg Tab UD PO SCH ×2 (09:10→16:59)
--- NOTE | 2018-02-11 19:24 | CP.PCM.PN ---
<Eileen Anaya MoisésNicole - Last Filed: 02/11/18 19:22> Subjective - Date & Time of Evaluation Date of Evaluation: 02/11/18 Time of Evaluation: 07:00 - Subjective Subjective: Medicine Progress Note: Patient was seen and examined at bedside in the AM. Patient states she continues to have some pain on her left ankle. Patient continues to have paralysis of LUE and LLE. She denies dizziness, fever, chills, chest pain, SOB , and swelling in the lower extremities. Objective - Vital Signs/Intake and Output Vital Signs (last 24 hours): Temp Pulse Resp BP Pulse Ox 98.7 F 90 20 105/69 98 02/11/18 16:00 02/11/18 16:00 02/11/18 16:00 02/11/18 16:00 02/11/18 16:00 - Medications Medications: Current Medications Acetaminophen (Tylenol 325mg Tab) 650 mg PO Q6H PRN PRN Reason: Pain, Mild (1-3) Last Admin: 02/11/18 17:00 Dose: 650 mg Amlodipine Besylate (Norvasc) 10 mg PO DAILY [facility] Last Admin: 02/11/18 09:11 Dose: 10 mg Ascorbic Acid (Vitamin C 500 Mg Tab) 500 mg PO DAILY [facility] Last Admin: 02/11/18 09:10 Dose: 500 mg Aspirin (Aspirin Chewable) 81 mg NG DAILY [facility] Last Admin: 02/11/18 09:10 Dose: 81 mg Clopidogrel Bisulfate (Plavix) 75 mg NG DAILY [facility] Last Admin: 02/11/18 09:11 Dose: 75 mg Docusate Sodium (Colace) 100 mg PO BID [facility] Last Admin: 02/11/18 16:59 Dose: 100 mg Famotidine (Pepcid) 20 mg PO BID [facility] Last Admin: 02/11/18 16:59 Dose: 20 mg Fluoxetine HCl (Prozac) 10 mg PO DAILY [facility] Last Admin: 02/11/18 09:10 Dose: 10 mg Folic Acid (Folic Acid) 1 mg PO DAILY [facility] Last Admin: 02/11/18 09:11 Dose: 1 mg Gabapentin (Neurontin) 300 mg PO TID [facility] Last Admin: 02/11/18 16:59 Dose: 300 mg Lisinopril (Zestril) 5 mg PO DAILY [facility] Last Admin: 02/11/18 09:11 Dose: 5 mg Loratadine (Claritin) 10 mg PO DAILY PRN PRN Reason: Allergy symptoms Magnesium Oxide (Mag-Ox) 400 mg PO BID [facility] Last Admin: 02/11/18 16:59 Dose: 400 mg Ondansetron HCl (Zofran Inj) 4 mg IVP DAILY@ONCE PRN PRN Reason: Nausea/Vomiting Polyethylene Glycol (Miralax) 17 gm PO DAILY PRN PRN Reason: Constipation Quetiapine Fumarate (Seroquel) 25 mg PO DAILY [facility] Last Admin: 02/11/18 09:11 Dose: 25 mg Rosuvastatin Calcium (Crestor) 40 mg PO HS [facility] Last Admin: 02/10/18 21:13 Dose: 40 mg Sodium Chloride ([place] Baby Saline 30 Ml) 0 ml JYOTHI Q4H [facility] Last Admin: 02/11/18 17:02 Dose: Not Given Tetrahydrozoline HCl/Zinc Sulfate (Visine 0.05% Opht Soln) 2 ml OD Q4H PRN PRN Reason: itchy eyes Last Admin: 01/23/18 09:14 Dose: 1 drop Tramadol HCl (Ultram) 50 mg PO [facility] Last Admin: 02/10/18 21:13 Dose: 50 mg Zinc Sulfate (Zinc Sulfate 220 Mg Cap) 220 mg PO DAILY [facility] Last Admin: 02/11/18 09:11 Dose: 220 mg - Labs Labs: 02/09/18 07:20 02/09/18 07:20 PT 12.2 SECONDS (9.7-12.2) 01/04/18 11:43 INR 1.1 01/04/18 11:43 APTT 26 SECONDS (21-34) 01/04/18 11:43 - Constitutional Appears: No Acute Distress - Head Exam Head Exam: ATRAUMATIC, NORMAL INSPECTION - Eye Exam Eye Exam: EOMI, Normal appearance - ENT Exam ENT Exam: Mucous Membranes Moist - Respiratory Exam Respiratory Exam: Clear to Ausculation Bilateral, NORMAL BREATHING PATTERN - Cardiovascular Exam Cardiovascular Exam: REGULAR RHYTHM, +S1, +S2 - GI/Abdominal Exam GI & Abdominal Exam: Soft, Normal Bowel Sounds. absent: Tenderness - Extremities Exam Extremities Exam: Normal Inspection - Neurological Exam Neurological Exam: Alert, Awake, Oriented x3 Neuro motor strength exam: Left Upper Extremity: 0, Right Upper Extremity: 4, Left Lower Extremity: 0, Right Lower Extremity: 4 - Psychiatric Exam Psychiatric exam: Normal Affect, Normal Mood - Skin Skin Exam: Normal Color Assessment and Plan - Assessment and Plan (Free Text) Assessment: Disposition: Patient needs acute rehab at discharge Insurance has been approved. Pending confirmation of placement. Will continue to work with case management for discharge plans. Per PT, patient can not use a wheelchair because she cannot transfer from bed to chair without max assistance. 1.) Acute CVA affecting the right parietal/temporal area. * Dr. Castillo (neuro) consulted, help appreciated * Pureed/dysphagia diet * Head of bed elevation * PT/OT Imaging: * 01/[address]: Large hypodensity at the right brain suggestive of acute right MCA territory infarction. Suspicious for right dense MCA sign. If clinically warranted CTA of the head is suggested to evaluate for right MCA occlusion. * 01/04 CTA head and neck: Focal moderate stenosis approximately 75-80 percent noted at the origin of the right internal carotid artery with possible soft plaque. Mild approximately 55 percent stenosis noted at the origin of the left internal carotid artery. Diffuse atherosclerotic disease and calcification noted at the distal internal carotid arteries bilaterally with foci of mild stenosis noted at the supraclinoid portion of the left internal carotid artery. Diffuse approximately 50 percent stenosis of M1 segment of the right middle cerebral artery. Sharp cut off at the M1 bifurcation of the right middle cerebral artery noted. Occlusion of the anterior temporal M2 segment of the right middle cerebral artery at its origin. * 01/[address]: Acute infarct in the right frontal, parietal and temporal lobes. No acute hemorrhage. Midline shift to the left. Prior images have been requested for direct comparison. Comparison is made to prior report. * 01/04 Echo: Normal study with EF 65-70% * 01/[address]: Large right MCA and LAURI territory infarct changes which involve a large portion of the right cerebral hemisphere. The infarct exerts considerable mass effect with overlying sulcal effacement and compressive effects on the right lateral ventricle particularly the right temporal horn with mild [id number] midline shift. No evidence of acute intracranial hemorrhage. Mild underlying chronic white matter ischemic changes seen left cerebral hemisphere as well. No obstructive hydrocephalus. * 01/05 MRI Brain: Acute infarct changes involving a good portion of the right cerebral hemisphere (distal branches of the right middle cerebral artery and anterior cerebral nor arteries). Questionable early hemorrhagic conversion changes right basal ganglia evidenced by foci of dark T2 signal in these locations on gradient echo sequence with isointense T1 signal. Persistent mass effect with mild midline shift. HEMORRHAGE: Questionable early hemorrhagic conversion changes right basal ganglia evidenced by foci of dark T2 signal in these locations on gradient echo sequence with isointense T1 signal * 01/05 Lower extremity US: negative for DVT * 01/[address]: Stable large right renal infarcted involving the right anterior middle cerebral artery territories as discussed above with stable mass effect effacing the sulci of the right cerebral hemisphere in causing a limited leftward some fall seen shift of 3-4 mm once again. No interval intracranial hemorrhage or expansion of the infarcted territory appreciated. Limited age- related neuro degenerative change reiterated at the left cerebral hemisphere. * 01/[address]: Acute/ subacute right frontotemporoparietal infarct. This involves both the LAURI and MCA territory. No hemorrhage. 2-3 mm midline shift towards the left. No significant change from prior examination. * 01/[address]: Expected changes status post right frontotemporoparietal infarct now with cortical laminar necrosis. No hemorrhage. Minimal midline shift. Medications: * Norvasc 10 mg QD * Lisinopril 5 mg QD * ASA 81 mg QD * Plavix 75 mg QD * discontinued (01/16/18) Valproate 500 mg IV Q12h due to elevated liver enzymes * Seroquel 25 mg QD * Fluoxetine 10 mg QD * Zinc 220 mg QD * Gabapentin 300mg BID * Tylenol 975mg po q6h prn 2.) UTI - resolved * UA: +1 Leuk esterase * Urine culture: Klebsiella Pneumoniae * Ciprofloxacin 400 mg in 200 mls @ 133 mls/hr IVPB Q12H [facility] * Stop date: 01/31/18 * Florastor 250 PO BID 3.) Constipation - resolved * CT abdomen and pelvis without contrast: 1. Constipation with fecal stasis in the sigmoid colon and rectum. No evidence of bowel obstruction. 2. No acute abdominal or pelvic abnormality. * On colace BID * gave 1 dose of miralax today - will advance if needed 4.) Vaginal yeast infection - resolved * Diflucan 200 mg PO once 5.) Seasonal Allergies * Claritin PRN * Visine PRN * Saline Nasal [place] * Mucinex x1 dose on 01/22 6.) Heavy alcohol use * Counseled on cessation 7.) Hyperlipidemia * Cholesterol 210, Triglycerides 248, LDL 92, HDL 81 * Crestor 40 mg HS 8.) Prophylaxis * Pepcid 20 mg BID * Florastor 250 PO BID * SCDs * Claritin PRN allergy symptoms * Ensure BID * PT <Lacy Keenan - Last Filed: 02/14/18 19:29> Objective - Vital Signs/Intake and Output Vital Signs (last 24 hours): Temp Pulse Resp BP Pulse Ox 98.2 F 90 20 104/65 97 02/14/18 16:00 02/14/18 16:00 02/14/18 16:00 02/14/18 16:00 02/14/18 16:00 Intake and Output: 02/14/18 02/15/18 18:59 06:59 Intake Total 500 Output Total 900 Balance -400 - Medications Medications: Current Medications Acetaminophen (Tylenol 325mg Tab) 650 mg PO Q6H PRN PRN Reason: Pain, Mild (1-3) Last Admin: 02/14/18 10:11 Dose: 650 mg Amlodipine Besylate (Norvasc) 10 mg PO DAILY [facility] Last Admin: 02/14/18 10:08 Dose: 10 mg Ascorbic Acid (Vitamin C 500 Mg Tab) 500 mg PO DAILY [facility] Last Admin: 02/14/18 10:07 Dose: 500 mg Aspirin (Aspirin Chewable) 81 mg NG DAILY [facility] Last Admin: 02/14/18 10:08 Dose: 81 mg Clopidogrel Bisulfate (Plavix) 75 mg NG DAILY [facility] Last Admin: 02/14/18 10:08 Dose: 75 mg Docusate Sodium (Colace) 100 mg PO BID [facility] Last Admin: 02/14/18 18:32 Dose: 100 mg Famotidine (Pepcid) 20 mg PO BID [facility] Last Admin: 02/14/18 18:33 Dose: 20 mg Fluoxetine HCl (Prozac) 10 mg PO DAILY [facility] Last Admin: 02/14/18 10:08 Dose: 10 mg Folic Acid (Folic Acid) 1 mg PO DAILY [facility] Last Admin: 02/14/18 10:08 Dose: 1 mg Gabapentin (Neurontin) 300 mg PO TID [facility] Last Admin: 02/14/18 18:32 Dose: 300 mg Lisinopril (Zestril) 5 mg PO DAILY [facility] Last Admin: 02/14/18 10:07 Dose: 5 mg Loratadine (Claritin) 10 mg PO DAILY PRN PRN Reason: Allergy symptoms Magnesium Oxide (Mag-Ox) 400 mg PO BID [facility] Last Admin: 02/14/18 18:33 Dose: 400 mg Ondansetron HCl (Zofran Inj) 4 mg IVP DAILY@ONCE PRN PRN Reason: Nausea/Vomiting Polyethylene Glycol (Miralax) 17 gm PO DAILY PRN PRN Reason: Constipation Quetiapine Fumarate (Seroquel) 25 mg PO DAILY [facility] Last Admin: 02/14/18 10:07 Dose: 25 mg Rosuvastatin Calcium (Crestor) 40 mg PO HS [facility] Last Admin: 02/13/18 21:51 Dose: 40 mg Sodium Chloride ([place] Baby Saline 30 Ml) 0 ml JYOTHI Q4H [facility] Last Admin: 02/14/18 16:15 Dose: 1 sprays Tetrahydrozoline HCl/Zinc Sulfate (Visine 0.05% Opht Soln) 2 ml OD Q4H PRN PRN Reason: itchy eyes Last Admin: 02/14/18 13:20 Dose: 1 drop Tramadol HCl (Ultram) 50 mg PO HS [facility] Last Admin: 02/13/18 21:51 Dose: 50 mg Zinc Sulfate (Zinc Sulfate 220 Mg Cap) 220 mg PO DAILY [facility] Last Admin: 02/14/18 10:08 Dose: 220 mg - Labs Labs: 02/09/18 07:20 02/09/18 07:20 PT 12.2 SECONDS (9.7-12.2) 01/04/18 11:43 INR 1.1 01/04/18 11:43 APTT 26 SECONDS (21-34) 01/04/18 11:43 Attending/Attestation - Attestation I have personally seen and examined this patient.: No I have fully participated in the care of the patient.: Yes I have reviewed all pertinent clinical information, including history, physical exam and plan: Yes
[2018-02-12] MEDS: Sodium Chloride Nasal 0.65% Soln (30ml) NAS SCH ×6 (00:28→20:30)
--- NOTE | 2018-02-12 06:42 | CP.PCM.PN ---
Subjective - Date & Time of Evaluation Date of Evaluation: 02/12/18 Time of Evaluation: 06:42 - Subjective Subjective: Ms. Bui is seen and examined at the bedside. She remains alert, oriented. She denies any headache, dizziness, nausea, or vomiting. She further states of feeling positive with rehab placement but does not know when. She is able to follow simple commands, with left facial droop, left side hemiplegia, and improving left side neglect. There was no untoward events overnight. Objective - Vital Signs/Intake and Output Vital Signs (last 24 hours): Temp Pulse Resp BP Pulse Ox 97.9 F 81 20 103/67 99 02/11/18 23:35 02/11/18 23:35 02/11/18 23:35 02/11/18 23:35 02/11/18 23:35 - Medications Medications: Current Medications Acetaminophen (Tylenol 325mg Tab) 650 mg PO Q6H PRN PRN Reason: Pain, Mild (1-3) Last Admin: 02/11/18 17:00 Dose: 650 mg Amlodipine Besylate (Norvasc) 10 mg PO DAILY [facility] Last Admin: 02/11/18 09:11 Dose: 10 mg Ascorbic Acid (Vitamin C 500 Mg Tab) 500 mg PO DAILY [facility] Last Admin: 02/11/18 09:10 Dose: 500 mg Aspirin (Aspirin Chewable) 81 mg NG DAILY [facility] Last Admin: 02/11/18 09:10 Dose: 81 mg Clopidogrel Bisulfate (Plavix) 75 mg NG DAILY [facility] Last Admin: 02/11/18 09:11 Dose: 75 mg Docusate Sodium (Colace) 100 mg PO BID [facility] Last Admin: 02/11/18 16:59 Dose: 100 mg Famotidine (Pepcid) 20 mg PO BID [facility] Last Admin: 02/11/18 16:59 Dose: 20 mg Fluoxetine HCl (Prozac) 10 mg PO DAILY [facility] Last Admin: 02/11/18 09:10 Dose: 10 mg Folic Acid (Folic Acid) 1 mg PO DAILY [facility] Last Admin: 02/11/18 09:11 Dose: 1 mg Gabapentin (Neurontin) 300 mg PO TID [facility] Last Admin: 02/11/18 16:59 Dose: 300 mg Lisinopril (Zestril) 5 mg PO DAILY [facility] Last Admin: 02/11/18 09:11 Dose: 5 mg Loratadine (Claritin) 10 mg PO DAILY PRN PRN Reason: Allergy symptoms Magnesium Oxide (Mag-Ox) 400 mg PO BID [facility] Last Admin: 02/11/18 16:59 Dose: 400 mg Ondansetron HCl (Zofran Inj) 4 mg IVP DAILY@ONCE PRN PRN Reason: Nausea/Vomiting Polyethylene Glycol (Miralax) 17 gm PO DAILY PRN PRN Reason: Constipation Quetiapine Fumarate (Seroquel) 25 mg PO DAILY [facility] Last Admin: 02/11/18 09:11 Dose: 25 mg Rosuvastatin Calcium (Crestor) 40 mg PO HS [facility] Last Admin: 02/11/18 21:41 Dose: 40 mg Sodium Chloride ([place] Baby Saline 30 Ml) 0 ml JYOTHI Q4H [facility] Last Admin: 02/12/18 04:38 Dose: Not Given Tetrahydrozoline HCl/Zinc Sulfate (Visine 0.05% Opht Soln) 2 ml OD Q4H PRN PRN Reason: itchy eyes Last Admin: 01/23/18 09:14 Dose: 1 drop Tramadol HCl (Ultram) 50 mg PO [facility] Last Admin: 02/11/18 21:41 Dose: 50 mg Zinc Sulfate (Zinc Sulfate 220 Mg Cap) 220 mg PO DAILY [facility] Last Admin: 02/11/18 09:11 Dose: 220 mg - Labs Labs: 02/09/18 07:20 02/09/18 07:20 PT 12.2 SECONDS (9.7-12.2) 01/04/18 11:43 INR 1.1 01/04/18 11:43 APTT 26 SECONDS (21-34) 01/04/18 11:43 - Constitutional Appears: No Acute Distress - Head Exam Head Exam: NORMAL INSPECTION - Eye Exam Pupil Exam: PERRL - Neurological Exam Neurological Exam: Alert, Awake, Oriented x3 Neuro motor strength exam: Left Upper Extremity: 2/1, Right Upper Extremity: 5, Left Lower Extremity: 2/1, Right Lower Extremity: 5 Additional comments: Neurological unchanged from previous examination. Assessment and Plan (1) CVA (cerebral vascular accident) Assessment & Plan: Case discussed with Dr. Castillo, continue all current medical, physical, and occupational therapies. Recommend head of bed elevated, hydration, blood pressure and glycemic control. There is no new recommendations from neurology. Status: Acute
[2018-02-12] MEDS: Magnesium Oxide 400 mg Tab UD PO SCH ×2 (10:04→17:20)
--- NOTE | 2018-02-12 10:53 | CP.PCM.PN ---
<HéctorEileen Audie - Last Filed: 02/12/18 15:35> Subjective - Date & Time of Evaluation Date of Evaluation: 02/12/18 Time of Evaluation: 07:00 - Subjective Subjective: Medicine Progress Note: Patient was seen and examined at bedside in the AM. Patient states she continues to have some pain on her left ankle when she has physical therapy. Patient continues to have paralysis of LUE and LLE. She denies dizziness, fever , chills, chest pain, SOB, and swelling in the lower extremities. Objective - Vital Signs/Intake and Output Vital Signs (last 24 hours): Temp Pulse Resp BP Pulse Ox 97.6 F 82 18 124/76 97 02/12/18 07:05 02/12/18 07:05 02/12/18 07:05 02/12/18 07:05 02/12/18 07:05 - Medications Medications: Current Medications Acetaminophen (Tylenol 325mg Tab) 650 mg PO Q6H PRN PRN Reason: Pain, Mild (1-3) Last Admin: 02/11/18 17:00 Dose: 650 mg Amlodipine Besylate (Norvasc) 10 mg PO DAILY [facility] Last Admin: 02/12/18 10:05 Dose: 10 mg Ascorbic Acid (Vitamin C 500 Mg Tab) 500 mg PO DAILY [facility] Last Admin: 02/12/18 10:05 Dose: 500 mg Aspirin (Aspirin Chewable) 81 mg NG DAILY [facility] Last Admin: 02/12/18 10:05 Dose: 81 mg Clopidogrel Bisulfate (Plavix) 75 mg NG DAILY [facility] Last Admin: 02/12/18 10:04 Dose: 75 mg Docusate Sodium (Colace) 100 mg PO BID [facility] Last Admin: 02/12/18 10:05 Dose: 100 mg Famotidine (Pepcid) 20 mg PO BID [facility] Last Admin: 02/12/18 10:05 Dose: 20 mg Fluoxetine HCl (Prozac) 10 mg PO DAILY [facility] Last Admin: 02/12/18 10:04 Dose: 10 mg Folic Acid (Folic Acid) 1 mg PO DAILY [facility] Last Admin: 02/12/18 10:04 Dose: 1 mg Gabapentin (Neurontin) 300 mg PO TID [facility] Last Admin: 02/12/18 10:04 Dose: 300 mg Lisinopril (Zestril) 5 mg PO DAILY [facility] Last Admin: 02/12/18 10:04 Dose: 5 mg Loratadine (Claritin) 10 mg PO DAILY PRN PRN Reason: Allergy symptoms Magnesium Oxide (Mag-Ox) 400 mg PO BID [facility] Last Admin: 02/12/18 10:04 Dose: 400 mg Ondansetron HCl (Zofran Inj) 4 mg IVP DAILY@ONCE PRN PRN Reason: Nausea/Vomiting Polyethylene Glycol (Miralax) 17 gm PO DAILY PRN PRN Reason: Constipation Quetiapine Fumarate (Seroquel) 25 mg PO DAILY [facility] Last Admin: 02/12/18 10:04 Dose: 25 mg Rosuvastatin Calcium (Crestor) 40 mg PO HS [facility] Last Admin: 02/11/18 21:41 Dose: 40 mg Sodium Chloride ([place] Baby Saline 30 Ml) 0 ml JYOTHI Q4H [facility] Last Admin: 02/12/18 09:00 Dose: 2 sprays Tetrahydrozoline HCl/Zinc Sulfate (Visine 0.05% Opht Soln) 2 ml OD Q4H PRN PRN Reason: itchy eyes Last Admin: 01/23/18 09:14 Dose: 1 drop Tramadol HCl (Ultram) 50 mg PO HS [facility] Last Admin: 02/11/18 21:41 Dose: 50 mg Zinc Sulfate (Zinc Sulfate 220 Mg Cap) 220 mg PO DAILY [facility] Last Admin: 02/12/18 10:04 Dose: 220 mg - Labs Labs: 02/09/18 07:20 02/09/18 07:20 PT 12.2 SECONDS (9.7-12.2) 01/04/18 11:43 INR 1.1 01/04/18 11:43 APTT 26 SECONDS (21-34) 01/04/18 11:43 - Constitutional Appears: No Acute Distress - Head Exam Head Exam: ATRAUMATIC, NORMAL INSPECTION - Eye Exam Eye Exam: EOMI, Normal appearance - ENT Exam ENT Exam: Mucous Membranes Moist - Respiratory Exam Respiratory Exam: Clear to Ausculation Bilateral, NORMAL BREATHING PATTERN - Cardiovascular Exam Cardiovascular Exam: REGULAR RHYTHM, RRR, +S1, +S2 - GI/Abdominal Exam GI & Abdominal Exam: Soft, Normal Bowel Sounds. absent: Tenderness - Extremities Exam Extremities Exam: Normal Inspection - Neurological Exam Neurological Exam: Alert, Awake, Oriented x3 Neuro motor strength exam: Left Upper Extremity: 0, Right Upper Extremity: 4, Left Lower Extremity: 0, Right Lower Extremity: 4 - Psychiatric Exam Psychiatric exam: Anxious - Skin Skin Exam: Normal Color Assessment and Plan - Assessment and Plan (Free Text) Assessment: Disposition: Patient needs acute rehab at discharge Insurance has been approved. Pending confirmation of placement. Will continue to work with case management for discharge plans. Per PT, patient can not use a wheelchair because she cannot transfer from bed to chair without max assistance. 1.) Acute CVA affecting the right parietal/temporal area. * Dr. Castillo (neuro) consulted, help appreciated * Pureed/dysphagia diet * Head of bed elevation * PT/OT Imaging: * 01/[address]: Large hypodensity at the right brain suggestive of acute right MCA territory infarction. Suspicious for right dense MCA sign. If clinically warranted CTA of the head is suggested to evaluate for right MCA occlusion. * 01/04 CTA head and neck: Focal moderate stenosis approximately 75-80 percent noted at the origin of the right internal carotid artery with possible soft plaque. Mild approximately 55 percent stenosis noted at the origin of the left internal carotid artery. Diffuse atherosclerotic disease and calcification noted at the distal internal carotid arteries bilaterally with foci of mild stenosis noted at the supraclinoid portion of the left internal carotid artery. Diffuse approximately 50 percent stenosis of M1 segment of the right middle cerebral artery. Sharp cut off at the M1 bifurcation of the right middle cerebral artery noted. Occlusion of the anterior temporal M2 segment of the right middle cerebral artery at its origin. * 01/[address]: Acute infarct in the right frontal, parietal and temporal lobes. No acute hemorrhage. Midline shift to the left. Prior images have been requested for direct comparison. Comparison is made to prior report. * 01/04 Echo: Normal study with EF 65-70% * 01/[address]: Large right MCA and LAURI territory infarct changes which involve a large portion of the right cerebral hemisphere. The infarct exerts considerable mass effect with overlying sulcal effacement and compressive effects on the right lateral ventricle particularly the right temporal horn with mild [id number] midline shift. No evidence of acute intracranial hemorrhage. Mild underlying chronic white matter ischemic changes seen left cerebral hemisphere as well. No obstructive hydrocephalus. * 01/05 MRI Brain: Acute infarct changes involving a good portion of the right cerebral hemisphere (distal branches of the right middle cerebral artery and anterior cerebral nor arteries). Questionable early hemorrhagic conversion changes right basal ganglia evidenced by foci of dark T2 signal in these locations on gradient echo sequence with isointense T1 signal. Persistent mass effect with mild midline shift. HEMORRHAGE: Questionable early hemorrhagic conversion changes right basal ganglia evidenced by foci of dark T2 signal in these locations on gradient echo sequence with isointense T1 signal * 01/05 Lower extremity US: negative for DVT * 01/[address]: Stable large right renal infarcted involving the right anterior middle cerebral artery territories as discussed above with stable mass effect effacing the sulci of the right cerebral hemisphere in causing a limited leftward some fall seen shift of 3-4 mm once again. No interval intracranial hemorrhage or expansion of the infarcted territory appreciated. Limited age- related neuro degenerative change reiterated at the left cerebral hemisphere. * 01/[address]: Acute/ subacute right frontotemporoparietal infarct. This involves both the LAURI and MCA territory. No hemorrhage. 2-3 mm midline shift towards the left. No significant change from prior examination. * 01/[address]: Expected changes status post right frontotemporoparietal infarct now with cortical laminar necrosis. No hemorrhage. Minimal midline shift. Medications: * Norvasc 10 mg QD * Lisinopril 5 mg QD * ASA 81 mg QD * Plavix 75 mg QD * discontinued (01/16/18) Valproate 500 mg IV Q12h due to elevated liver enzymes * Seroquel 25 mg QD * Fluoxetine 10 mg QD * Zinc 220 mg QD * Gabapentin 300mg BID * Tylenol 975mg po q6h prn 2.) UTI - resolved * UA: +1 Leuk esterase * Urine culture: Klebsiella Pneumoniae * Ciprofloxacin 400 mg in 200 mls @ 133 mls/hr IVPB Q12H [facility] * Stop date: 01/31/18 * Florastor 250 PO BID 3.) Constipation - resolved * CT abdomen and pelvis without contrast: 1. Constipation with fecal stasis in the sigmoid colon and rectum. No evidence of bowel obstruction. 2. No acute abdominal or pelvic abnormality. * On colace BID * gave 1 dose of miralax today - will advance if needed 4.) Vaginal yeast infection - resolved * Diflucan 200 mg PO once 5.) Seasonal Allergies * Claritin PRN * Visine PRN * Saline Nasal [place] * Mucinex x1 dose on 01/22 6.) Heavy alcohol use * Counseled on cessation 7.) Hyperlipidemia * Cholesterol 210, Triglycerides 248, LDL 92, HDL 81 * Crestor 40 mg HS 8.) Prophylaxis * Pepcid 20 mg BID * Florastor 250 PO BID * SCDs * Claritin PRN allergy symptoms * Ensure BID * PT <Lacy Keenan - Last Filed: 02/14/18 19:30> Objective - Vital Signs/Intake and Output Vital Signs (last 24 hours): Temp Pulse Resp BP Pulse Ox 98.2 F 90 20 104/65 97 02/14/18 16:00 02/14/18 16:00 02/14/18 16:00 02/14/18 16:00 02/14/18 16:00 Intake and Output: 02/14/18 02/15/18 18:59 06:59 Intake Total 500 Output Total 900 Balance -400 - Medications Medications: Current Medications Acetaminophen (Tylenol 325mg Tab) 650 mg PO Q6H PRN PRN Reason: Pain, Mild (1-3) Last Admin: 02/14/18 10:11 Dose: 650 mg Amlodipine Besylate (Norvasc) 10 mg PO DAILY [facility] Last Admin: 02/14/18 10:08 Dose: 10 mg Ascorbic Acid (Vitamin C 500 Mg Tab) 500 mg PO DAILY [facility] Last Admin: 02/14/18 10:07 Dose: 500 mg Aspirin (Aspirin Chewable) 81 mg NG DAILY [facility] Last Admin: 02/14/18 10:08 Dose: 81 mg Clopidogrel Bisulfate (Plavix) 75 mg NG DAILY [facility] Last Admin: 02/14/18 10:08 Dose: 75 mg Docusate Sodium (Colace) 100 mg PO BID [facility] Last Admin: 02/14/18 18:32 Dose: 100 mg Famotidine (Pepcid) 20 mg PO BID [facility] Last Admin: 02/14/18 18:33 Dose: 20 mg Fluoxetine HCl (Prozac) 10 mg PO DAILY [facility] Last Admin: 02/14/18 10:08 Dose: 10 mg Folic Acid (Folic Acid) 1 mg PO DAILY [facility] Last Admin: 02/14/18 10:08 Dose: 1 mg Gabapentin (Neurontin) 300 mg PO TID [facility] Last Admin: 02/14/18 18:32 Dose: 300 mg Lisinopril (Zestril) 5 mg PO DAILY [facility] Last Admin: 02/14/18 10:07 Dose: 5 mg Loratadine (Claritin) 10 mg PO DAILY PRN PRN Reason: Allergy symptoms Magnesium Oxide (Mag-Ox) 400 mg PO BID [facility] Last Admin: 02/14/18 18:33 Dose: 400 mg Ondansetron HCl (Zofran Inj) 4 mg IVP DAILY@ONCE PRN PRN Reason: Nausea/Vomiting Polyethylene Glycol (Miralax) 17 gm PO DAILY PRN PRN Reason: Constipation Quetiapine Fumarate (Seroquel) 25 mg PO DAILY [facility] Last Admin: 02/14/18 10:07 Dose: 25 mg Rosuvastatin Calcium (Crestor) 40 mg PO HS [facility] Last Admin: 02/13/18 21:51 Dose: 40 mg Sodium Chloride ([place] Baby Saline 30 Ml) 0 ml JYOTHI Q4H [facility] Last Admin: 02/14/18 16:15 Dose: 1 sprays Tetrahydrozoline HCl/Zinc Sulfate (Visine 0.05% Opht Soln) 2 ml OD Q4H PRN PRN Reason: itchy eyes Last Admin: 02/14/18 13:20 Dose: 1 drop Tramadol HCl (Ultram) 50 mg PO [facility] Last Admin: 02/13/18 21:51 Dose: 50 mg Zinc Sulfate (Zinc Sulfate 220 Mg Cap) 220 mg PO DAILY [facility] Last Admin: 02/14/18 10:08 Dose: 220 mg - Labs Labs: 02/09/18 07:20 02/09/18 07:20 PT 12.2 SECONDS (9.7-12.2) 01/04/18 11:43 INR 1.1 01/04/18 11:43 APTT 26 SECONDS (21-34) 01/04/18 11:43 Attending/Attestation - Attestation I have personally seen and examined this patient.: Yes I have fully participated in the care of the patient.: Yes I have reviewed all pertinent clinical information, including history, physical exam and plan: Yes Notes (Text): No change ]Seen and examined Pending rehab placement I agree with the documentation of the assessment and the plan
[2018-02-13] MEDS: Sodium Chloride Nasal 0.65% Soln (30ml) NAS SCH ×5 (03:22→16:26)
[2018-02-13] MEDS: Magnesium Oxide 400 mg Tab UD PO SCH ×2 (10:58→18:07)
--- NOTE | 2018-02-13 14:47 | CP.PCM.PN ---
<HéctorEileen MoisésNicole - Last Filed: 02/13/18 14:46> Subjective - Date & Time of Evaluation Date of Evaluation: 02/13/18 Time of Evaluation: 14:46 - Subjective Subjective: Medicine Progress Note: Patient was seen and examined at bedside in the AM. Patient states she continues to have some pain on her left ankle when she has physical therapy. Patient continues to have paralysis of LUE and LLE. She denies dizziness, fever , chills, chest pain, SOB, and swelling in the lower extremities. Objective - Vital Signs/Intake and Output Vital Signs (last 24 hours): Temp Pulse Resp BP Pulse Ox 98.3 F 81 20 124/81 98 02/13/18 09:39 02/13/18 10:58 02/13/18 09:39 02/13/18 10:58 02/13/18 09:39 Intake and Output: 02/13/18 02/13/18 06:59 18:59 Intake Total 150 Output Total 450 Balance -300 - Medications Medications: Current Medications Acetaminophen (Tylenol 325mg Tab) 650 mg PO Q6H PRN PRN Reason: Pain, Mild (1-3) Last Admin: 02/12/18 17:21 Dose: 650 mg Amlodipine Besylate (Norvasc) 10 mg PO DAILY [facility] Last Admin: 02/13/18 10:59 Dose: 10 mg Ascorbic Acid (Vitamin C 500 Mg Tab) 500 mg PO DAILY [facility] Last Admin: 02/13/18 10:58 Dose: 500 mg Aspirin (Aspirin Chewable) 81 mg NG DAILY [facility] Last Admin: 02/13/18 10:59 Dose: 81 mg Clopidogrel Bisulfate (Plavix) 75 mg NG DAILY [facility] Last Admin: 02/13/18 10:58 Dose: 75 mg Docusate Sodium (Colace) 100 mg PO BID [facility] Last Admin: 02/13/18 10:59 Dose: Not Given Famotidine (Pepcid) 20 mg PO BID [facility] Last Admin: 02/13/18 10:58 Dose: 20 mg Fluoxetine HCl (Prozac) 10 mg PO DAILY [facility] Last Admin: 02/13/18 10:59 Dose: 10 mg Folic Acid (Folic Acid) 1 mg PO DAILY [facility] Last Admin: 02/13/18 10:59 Dose: 1 mg Gabapentin (Neurontin) 300 mg PO TID [facility] Last Admin: 02/13/18 14:39 Dose: 300 mg Lisinopril (Zestril) 5 mg PO DAILY [facility] Last Admin: 02/13/18 10:58 Dose: 5 mg Loratadine (Claritin) 10 mg PO DAILY PRN PRN Reason: Allergy symptoms Magnesium Oxide (Mag-Ox) 400 mg PO BID [facility] Last Admin: 02/13/18 10:58 Dose: 400 mg Ondansetron HCl (Zofran Inj) 4 mg IVP DAILY@ONCE PRN PRN Reason: Nausea/Vomiting Polyethylene Glycol (Miralax) 17 gm PO DAILY PRN PRN Reason: Constipation Quetiapine Fumarate (Seroquel) 25 mg PO DAILY [facility] Last Admin: 02/13/18 10:58 Dose: 25 mg Rosuvastatin Calcium (Crestor) 40 mg PO HS [facility] Last Admin: 02/12/18 21:50 Dose: 40 mg Sodium Chloride ([place] Baby Saline 30 Ml) 0 ml JYOTHI Q4H [facility] Last Admin: 02/13/18 11:03 Dose: 2 sprays Tetrahydrozoline HCl/Zinc Sulfate (Visine 0.05% Opht Soln) 2 ml OD Q4H PRN PRN Reason: itchy eyes Last Admin: 01/23/18 09:14 Dose: 1 drop Tramadol HCl (Ultram) 50 mg PO HS [facility] Last Admin: 02/12/18 21:51 Dose: 50 mg Zinc Sulfate (Zinc Sulfate 220 Mg Cap) 220 mg PO DAILY [facility] Last Admin: 02/13/18 10:58 Dose: 220 mg - Labs Labs: 02/09/18 07:20 02/09/18 07:20 PT 12.2 SECONDS (9.7-12.2) 01/04/18 11:43 INR 1.1 01/04/18 11:43 APTT 26 SECONDS (21-34) 01/04/18 11:43 - Constitutional Appears: No Acute Distress - Head Exam Head Exam: ATRAUMATIC, NORMAL INSPECTION - Eye Exam Eye Exam: EOMI, Normal appearance - ENT Exam ENT Exam: Mucous Membranes Moist - Respiratory Exam Respiratory Exam: Clear to Ausculation Bilateral, NORMAL BREATHING PATTERN - Cardiovascular Exam Cardiovascular Exam: REGULAR RHYTHM, +S1, +S2 - GI/Abdominal Exam GI & Abdominal Exam: Soft, Normal Bowel Sounds. absent: Tenderness - Neurological Exam Neurological Exam: Alert, Awake, Oriented x3 Neuro motor strength exam: Left Upper Extremity: 0, Right Upper Extremity: 4, Left Lower Extremity: 0, Right Lower Extremity: 4 - Psychiatric Exam Psychiatric exam: Normal Affect, Normal Mood - Skin Skin Exam: Normal Color Assessment and Plan - Assessment and Plan (Free Text) Assessment: Disposition: Patient needs acute rehab at discharge Insurance has been approved. Pending confirmation of placement. Will continue to work with case management for discharge plans. Per PT, patient can not use a wheelchair because she cannot transfer from bed to chair without max assistance. 1.) Acute CVA affecting the right parietal/temporal area. * Dr. Castillo (neuro) consulted, help appreciated * Pureed/dysphagia diet * Head of bed elevation * PT/OT Imaging: * 01/[address]: Large hypodensity at the right brain suggestive of acute right MCA territory infarction. Suspicious for right dense MCA sign. If clinically warranted CTA of the head is suggested to evaluate for right MCA occlusion. * 01/04 CTA head and neck: Focal moderate stenosis approximately 75-80 percent noted at the origin of the right internal carotid artery with possible soft plaque. Mild approximately 55 percent stenosis noted at the origin of the left internal carotid artery. Diffuse atherosclerotic disease and calcification noted at the distal internal carotid arteries bilaterally with foci of mild stenosis noted at the supraclinoid portion of the left internal carotid artery. Diffuse approximately 50 percent stenosis of M1 segment of the right middle cerebral artery. Sharp cut off at the M1 bifurcation of the right middle cerebral artery noted. Occlusion of the anterior temporal M2 segment of the right middle cerebral artery at its origin. * 01/[address]: Acute infarct in the right frontal, parietal and temporal lobes. No acute hemorrhage. Midline shift to the left. Prior images have been requested for direct comparison. Comparison is made to prior report. * 01/04 Echo: Normal study with EF 65-70% * 01/[address]: Large right MCA and LAURI territory infarct changes which involve a large portion of the right cerebral hemisphere. The infarct exerts considerable mass effect with overlying sulcal effacement and compressive effects on the right lateral ventricle particularly the right temporal horn with mild [id number] midline shift. No evidence of acute intracranial hemorrhage. Mild underlying chronic white matter ischemic changes seen left cerebral hemisphere as well. No obstructive hydrocephalus. * 01/05 MRI Brain: Acute infarct changes involving a good portion of the right cerebral hemisphere (distal branches of the right middle cerebral artery and anterior cerebral nor arteries). Questionable early hemorrhagic conversion changes right basal ganglia evidenced by foci of dark T2 signal in these locations on gradient echo sequence with isointense T1 signal. Persistent mass effect with mild midline shift. HEMORRHAGE: Questionable early hemorrhagic conversion changes right basal ganglia evidenced by foci of dark T2 signal in these locations on gradient echo sequence with isointense T1 signal * 01/05 Lower extremity US: negative for DVT * 01/[address]: Stable large right renal infarcted involving the right anterior middle cerebral artery territories as discussed above with stable mass effect effacing the sulci of the right cerebral hemisphere in causing a limited leftward some fall seen shift of 3-4 mm once again. No interval intracranial hemorrhage or expansion of the infarcted territory appreciated. Limited age- related neuro degenerative change reiterated at the left cerebral hemisphere. * 01/[address]: Acute/ subacute right frontotemporoparietal infarct. This involves both the LAURI and MCA territory. No hemorrhage. 2-3 mm midline shift towards the left. No significant change from prior examination. * 01/[address]: Expected changes status post right frontotemporoparietal infarct now with cortical laminar necrosis. No hemorrhage. Minimal midline shift. Medications: * Norvasc 10 mg QD * Lisinopril 5 mg QD * ASA 81 mg QD * Plavix 75 mg QD * discontinued (01/16/18) Valproate 500 mg IV Q12h due to elevated liver enzymes * Seroquel 25 mg QD * Fluoxetine 10 mg QD * Zinc 220 mg QD * Gabapentin 300mg BID * Tylenol 975mg po q6h prn 2.) UTI - resolved * UA: +1 Leuk esterase * Urine culture: Klebsiella Pneumoniae * Ciprofloxacin 400 mg in 200 mls @ 133 mls/hr IVPB Q12H [facility] * Stop date: 01/31/18 * Florastor 250 PO BID 3.) Constipation - resolved * CT abdomen and pelvis without contrast: 1. Constipation with fecal stasis in the sigmoid colon and rectum. No evidence of bowel obstruction. 2. No acute abdominal or pelvic abnormality. * On colace BID * gave 1 dose of miralax today - will advance if needed 4.) Vaginal yeast infection - resolved * Diflucan 200 mg PO once 5.) Seasonal Allergies * Claritin PRN * Visine PRN * Saline Nasal [place] * Mucinex x1 dose on 01/22 6.) Heavy alcohol use * Counseled on cessation 7.) Hyperlipidemia * Cholesterol 210, Triglycerides 248, LDL 92, HDL 81 * Crestor 40 mg HS 8.) Prophylaxis * Pepcid 20 mg BID * Florastor 250 PO BID * SCDs * Claritin PRN allergy symptoms * Ensure BID * PT <Lacy Keenan - Last Filed: 02/14/18 19:31> Objective - Vital Signs/Intake and Output Vital Signs (last 24 hours): Temp Pulse Resp BP Pulse Ox 98.2 F 90 20 104/65 97 02/14/18 16:00 02/14/18 16:00 02/14/18 16:00 02/14/18 16:00 02/14/18 16:00 Intake and Output: 02/14/18 02/15/18 18:59 06:59 Intake Total 500 Output Total 900 Balance -400 - Medications Medications: Current Medications Acetaminophen (Tylenol 325mg Tab) 650 mg PO Q6H PRN PRN Reason: Pain, Mild (1-3) Last Admin: 02/14/18 10:11 Dose: 650 mg Amlodipine Besylate (Norvasc) 10 mg PO DAILY [facility] Last Admin: 02/14/18 10:08 Dose: 10 mg Ascorbic Acid (Vitamin C 500 Mg Tab) 500 mg PO DAILY [facility] Last Admin: 02/14/18 10:07 Dose: 500 mg Aspirin (Aspirin Chewable) 81 mg NG DAILY [facility] Last Admin: 02/14/18 10:08 Dose: 81 mg Clopidogrel Bisulfate (Plavix) 75 mg NG DAILY [facility] Last Admin: 02/14/18 10:08 Dose: 75 mg Docusate Sodium (Colace) 100 mg PO BID [facility] Last Admin: 02/14/18 18:32 Dose: 100 mg Famotidine (Pepcid) 20 mg PO BID [facility] Last Admin: 02/14/18 18:33 Dose: 20 mg Fluoxetine HCl (Prozac) 10 mg PO DAILY [facility] Last Admin: 02/14/18 10:08 Dose: 10 mg Folic Acid (Folic Acid) 1 mg PO DAILY [facility] Last Admin: 02/14/18 10:08 Dose: 1 mg Gabapentin (Neurontin) 300 mg PO TID [facility] Last Admin: 02/14/18 18:32 Dose: 300 mg Lisinopril (Zestril) 5 mg PO DAILY [facility] Last Admin: 02/14/18 10:07 Dose: 5 mg Loratadine (Claritin) 10 mg PO DAILY PRN PRN Reason: Allergy symptoms Magnesium Oxide (Mag-Ox) 400 mg PO BID [facility] Last Admin: 02/14/18 18:33 Dose: 400 mg Ondansetron HCl (Zofran Inj) 4 mg IVP DAILY@ONCE PRN PRN Reason: Nausea/Vomiting Polyethylene Glycol (Miralax) 17 gm PO DAILY PRN PRN Reason: Constipation Quetiapine Fumarate (Seroquel) 25 mg PO DAILY [facility] Last Admin: 02/14/18 10:07 Dose: 25 mg Rosuvastatin Calcium (Crestor) 40 mg PO HS [facility] Last Admin: 02/13/18 21:51 Dose: 40 mg Sodium Chloride ([place] Baby Saline 30 Ml) 0 ml JYOTHI Q4H [facility] Last Admin: 02/14/18 16:15 Dose: 1 sprays Tetrahydrozoline HCl/Zinc Sulfate (Visine 0.05% Opht Soln) 2 ml OD Q4H PRN PRN Reason: itchy eyes Last Admin: 02/14/18 13:20 Dose: 1 drop Tramadol HCl (Ultram) 50 mg PO HS [facility] Last Admin: 02/13/18 21:51 Dose: 50 mg Zinc Sulfate (Zinc Sulfate 220 Mg Cap) 220 mg PO DAILY [facility] Last Admin: 02/14/18 10:08 Dose: 220 mg - Labs Labs: 02/09/18 07:20 02/09/18 07:20 PT 12.2 SECONDS (9.7-12.2) 01/04/18 11:43 INR 1.1 01/04/18 11:43 APTT 26 SECONDS (21-34) 01/04/18 11:43 Attending/Attestation - Attestation I have personally seen and examined this patient.: Yes I have fully participated in the care of the patient.: Yes I have reviewed all pertinent clinical information, including history, physical exam and plan: Yes Notes (Text): No change ]Seen and examined Pending rehab placement I agree with the documentation of the assessment and the plan
[2018-02-14] MEDS: Sodium Chloride Nasal 0.65% Soln (30ml) NAS SCH ×6 (00:01→22:19)
--- NOTE | 2018-02-14 05:27 | CP.PCM.PN ---
<Mila Modi - Last Filed: 02/14/18 05:24> Subjective - Date & Time of Evaluation Date of Evaluation: 02/14/18 Time of Evaluation: 05:24 - Subjective Subjective: Medicine Progress Note for Dr. Keenan's service Patient was seen and examined at bedside in no acute distress. Patient was sleeping comfortably in bed. Patient chest pain, dyspnea, abdominal pain, dizziness, fever, and pain/swelling in the lower extremities. No acute events overnight. Objective - Vital Signs/Intake and Output Vital Signs (last 24 hours): Temp Pulse Resp BP Pulse Ox 98.0 F 87 20 100/61 97 02/13/18 23:30 02/13/18 23:30 02/13/18 23:30 02/13/18 23:30 02/13/18 23:30 Intake and Output: 02/13/18 02/14/18 18:59 06:59 Intake Total 500 Output Total 400 1100 Balance 100 -1100 - Medications Medications: Current Medications Acetaminophen (Tylenol 325mg Tab) 650 mg PO Q6H PRN PRN Reason: Pain, Mild (1-3) Last Admin: 02/12/18 17:21 Dose: 650 mg Amlodipine Besylate (Norvasc) 10 mg PO DAILY [facility] Last Admin: 02/13/18 10:59 Dose: 10 mg Ascorbic Acid (Vitamin C 500 Mg Tab) 500 mg PO DAILY [facility] Last Admin: 02/13/18 10:58 Dose: 500 mg Aspirin (Aspirin Chewable) 81 mg NG DAILY [facility] Last Admin: 02/13/18 10:59 Dose: 81 mg Clopidogrel Bisulfate (Plavix) 75 mg NG DAILY [facility] Last Admin: 02/13/18 10:58 Dose: 75 mg Docusate Sodium (Colace) 100 mg PO BID [facility] Last Admin: 02/13/18 18:07 Dose: 100 mg Famotidine (Pepcid) 20 mg PO BID [facility] Last Admin: 02/13/18 18:07 Dose: 20 mg Fluoxetine HCl (Prozac) 10 mg PO DAILY [facility] Last Admin: 02/13/18 10:59 Dose: 10 mg Folic Acid (Folic Acid) 1 mg PO DAILY [facility] Last Admin: 02/13/18 10:59 Dose: 1 mg Gabapentin (Neurontin) 300 mg PO TID [facility] Last Admin: 05/25/18 18:07 Dose: 300 mg Lisinopril (Zestril) 5 mg PO DAILY [facility] Last Admin: 02/13/18 10:58 Dose: 5 mg Loratadine (Claritin) 10 mg PO DAILY PRN PRN Reason: Allergy symptoms Magnesium Oxide (Mag-Ox) 400 mg PO BID [facility] Last Admin: 02/13/18 18:07 Dose: 400 mg Ondansetron HCl (Zofran Inj) 4 mg IVP DAILY@ONCE PRN PRN Reason: Nausea/Vomiting Polyethylene Glycol (Miralax) 17 gm PO DAILY PRN PRN Reason: Constipation Quetiapine Fumarate (Seroquel) 25 mg PO DAILY [facility] Last Admin: 02/13/18 10:58 Dose: 25 mg Rosuvastatin Calcium (Crestor) 40 mg PO [facility] Last Admin: 02/13/18 21:51 Dose: 40 mg Sodium Chloride (Banks Baby Saline 30 Ml) 0 ml JYOTHI Q4H [facility] Last Admin: 02/14/18 04:08 Dose: Not Given Tetrahydrozoline HCl/Zinc Sulfate (Visine 0.05% Opht Soln) 2 ml OD Q4H PRN PRN Reason: itchy eyes Last Admin: 01/23/18 09:14 Dose: 1 drop Tramadol HCl (Ultram) 50 mg PO [facility] Last Admin: 02/13/18 21:51 Dose: 50 mg Zinc Sulfate (Zinc Sulfate 220 Mg Cap) 220 mg PO DAILY [facility] Last Admin: 02/13/18 10:58 Dose: 220 mg - Labs Labs: 02/09/18 07:20 02/09/18 07:20 PT 12.2 SECONDS (9.7-12.2) 01/04/18 11:43 INR 1.1 01/04/18 11:43 APTT 26 SECONDS (21-34) 01/04/18 11:43 - Additional Findings Additional findings: - Constitutional Appears: No Acute Distress - Head Exam Head Exam: ATRAUMATIC, NORMAL INSPECTION - Eye Exam Eye Exam: EOMI, Normal appearance - ENT Exam ENT Exam: Mucous Membranes Moist - Respiratory Exam Respiratory Exam: Clear to Ausculation Bilateral, NORMAL BREATHING PATTERN - Cardiovascular Exam Cardiovascular Exam: REGULAR RHYTHM, +S1, +S2 - GI/Abdominal Exam GI & Abdominal Exam: Soft, Normal Bowel Sounds. absent: Tenderness - Neurological Exam Neurological Exam: Alert, Awake, Oriented x3 Neuro motor strength exam: Left Upper Extremity: 0, Right Upper Extremity: 4, Left Lower Extremity: 0, Right Lower Extremity: 4 - Psychiatric Exam Psychiatric exam: Normal Affect, Normal Mood - Skin Skin Exam: Normal Color Assessment and Plan - Assessment and Plan (Free Text) Plan: Disposition: Patient needs acute rehab at discharge Insurance has been approved. Pending confirmation of placement. Will continue to work with case management for discharge plans. Per PT, patient can not use a wheelchair because she cannot transfer from bed to chair without max assistance. 1.) Acute CVA affecting the right parietal/temporal area. * Dr. Castillo (neuro) consulted, help appreciated * Pureed/dysphagia diet * Head of bed elevation * PT/OT Imaging: * 01/[address]: Large hypodensity at the right brain suggestive of acute right MCA territory infarction. Suspicious for right dense MCA sign. If clinically warranted CTA of the head is suggested to evaluate for right MCA occlusion. * 01/04 CTA head and neck: Focal moderate stenosis approximately 75-80 percent noted at the origin of the right internal carotid artery with possible soft plaque. Mild approximately 55 percent stenosis noted at the origin of the left internal carotid artery. Diffuse atherosclerotic disease and calcification noted at the distal internal carotid arteries bilaterally with foci of mild stenosis noted at the supraclinoid portion of the left internal carotid artery. Diffuse approximately 50 percent stenosis of M1 segment of the right middle cerebral artery. Sharp cut off at the M1 bifurcation of the right middle cerebral artery noted. Occlusion of the anterior temporal M2 segment of the right middle cerebral artery at its origin. * 01/[address]: Acute infarct in the right frontal, parietal and temporal lobes. No acute hemorrhage. Midline shift to the left. Prior images have been requested for direct comparison. Comparison is made to prior report. * 01/04 Echo: Normal study with EF 65-70% * 01/[address]: Large right MCA and LAURI territory infarct changes which involve a large portion of the right cerebral hemisphere. The infarct exerts considerable mass effect with overlying sulcal effacement and compressive effects on the right lateral ventricle particularly the right temporal horn with mild [id number] midline shift. No evidence of acute intracranial hemorrhage. Mild underlying chronic white matter ischemic changes seen left cerebral hemisphere as well. No obstructive hydrocephalus. * 01/05 MRI Brain: Acute infarct changes involving a good portion of the right cerebral hemisphere (distal branches of the right middle cerebral artery and anterior cerebral nor arteries). Questionable early hemorrhagic conversion changes right basal ganglia evidenced by foci of dark T2 signal in these locations on gradient echo sequence with isointense T1 signal. Persistent mass effect with mild midline shift. HEMORRHAGE: Questionable early hemorrhagic conversion changes right basal ganglia evidenced by foci of dark T2 signal in these locations on gradient echo sequence with isointense T1 signal * 01/05 Lower extremity US: negative for DVT * 01/[address]: Stable large right renal infarcted involving the right anterior middle cerebral artery territories as discussed above with stable mass effect effacing the sulci of the right cerebral hemisphere in causing a limited leftward some fall seen shift of 3-4 mm once again. No interval intracranial hemorrhage or expansion of the infarcted territory appreciated. Limited age- related neuro degenerative change reiterated at the left cerebral hemisphere. * 01/[address]: Acute/ subacute right frontotemporoparietal infarct. This involves both the LAURI and MCA territory. No hemorrhage. 2-3 mm midline shift towards the left. No significant change from prior examination. * 01/[address]: Expected changes status post right frontotemporoparietal infarct now with cortical laminar necrosis. No hemorrhage. Minimal midline shift. Medications: * Norvasc 10 mg QD * Lisinopril 5 mg QD * ASA 81 mg QD * Plavix 75 mg QD * discontinued (01/16/18) Valproate 500 mg IV Q12h due to elevated liver enzymes * Seroquel 25 mg QD * Fluoxetine 10 mg QD * Zinc 220 mg QD * Gabapentin 300mg BID * Tylenol 650mg po q6h prn 2.) UTI - resolved * UA: +1 Leuk esterase * Urine culture: Klebsiella Pneumoniae * Ciprofloxacin 400 mg in 200 mls @ 133 mls/hr IVPB Q12H [facility] * Stop date: 01/31/18 * Florastor 250 PO BID 3.) Constipation - resolved * CT abdomen and pelvis without contrast: 1. Constipation with fecal stasis in the sigmoid colon and rectum. No evidence of bowel obstruction. 2. No acute abdominal or pelvic abnormality. * On colace BID * gave 1 dose of miralax today - will advance if needed 4.) Vaginal yeast infection - resolved * Diflucan 200 mg PO once 5.) Seasonal Allergies * Claritin PRN * Visine PRN * Saline Nasal [place] * Mucinex x1 dose on 5/3 6.) Heavy alcohol use * Counseled on cessation 7.) Hyperlipidemia * Cholesterol 210, Triglycerides 248, LDL 92, HDL 81 * Crestor 40 mg HS 8.) Prophylaxis * Pepcid 20 mg BID * Florastor 250 PO BID * SCDs * Claritin PRN allergy symptoms * Ensure BID * PT <Gary Keenanrandallnisreen - Last Filed: 02/14/18 15:38> Objective - Vital Signs/Intake and Output Vital Signs (last 24 hours): Temp Pulse Resp BP Pulse Ox 97.9 F 74 20 120/82 98 02/14/18 08:57 02/14/18 08:57 02/14/18 08:57 02/14/18 08:57 02/14/18 08:57 Intake and Output: 02/14/18 02/14/18 06:59 18:59 Intake Total 100 Output Total 1500 Balance -1400 - Medications Medications: Current Medications Acetaminophen (Tylenol 325mg Tab) 650 mg PO Q6H PRN PRN Reason: Pain, Mild (1-3) Last Admin: 02/14/18 10:11 Dose: 650 mg Amlodipine Besylate (Norvasc) 10 mg PO DAILY [facility] Last Admin: 02/14/18 10:08 Dose: 10 mg Ascorbic Acid (Vitamin C 500 Mg Tab) 500 mg PO DAILY [facility] Last Admin: 02/14/18 10:07 Dose: 500 mg Aspirin (Aspirin Chewable) 81 mg NG DAILY [facility] Last Admin: 02/14/18 10:08 Dose: 81 mg Clopidogrel Bisulfate (Plavix) 75 mg NG DAILY [facility] Last Admin: 02/14/18 10:08 Dose: 75 mg Docusate Sodium (Colace) 100 mg PO BID [facility] Last Admin: 02/14/18 10:08 Dose: 100 mg Famotidine (Pepcid) 20 mg PO BID [facility] Last Admin: 02/14/18 10:08 Dose: 20 mg Fluoxetine HCl (Prozac) 10 mg PO DAILY [facility] Last Admin: 02/14/18 10:08 Dose: 10 mg Folic Acid (Folic Acid) 1 mg PO DAILY [facility] Last Admin: 02/14/18 10:08 Dose: 1 mg Gabapentin (Neurontin) 300 mg PO TID [facility] Last Admin: 02/14/18 13:19 Dose: 300 mg Lisinopril (Zestril) 5 mg PO DAILY [facility] Last Admin: 02/14/18 10:07 Dose: 5 mg Loratadine (Claritin) 10 mg PO DAILY PRN PRN Reason: Allergy symptoms Magnesium Oxide (Mag-Ox) 400 mg PO BID [facility] Last Admin: 02/14/18 10:07 Dose: 400 mg Ondansetron HCl (Zofran Inj) 4 mg IVP DAILY@ONCE PRN PRN Reason: Nausea/Vomiting Polyethylene Glycol (Miralax) 17 gm PO DAILY PRN PRN Reason: Constipation Quetiapine Fumarate (Seroquel) 25 mg PO DAILY [facility] Last Admin: 02/14/18 10:07 Dose: 25 mg Rosuvastatin Calcium (Crestor) 40 mg PO HS [facility] Last Admin: 02/13/18 21:51 Dose: 40 mg Sodium Chloride (Banks Baby Saline 30 Ml) 0 ml JYOTHI Q4H [facility] Last Admin: 02/14/18 12:54 Dose: 1 sprays Tetrahydrozoline HCl/Zinc Sulfate (Visine 0.05% Opht Soln) 2 ml OD Q4H PRN PRN Reason: itchy eyes Last Admin: 02/14/18 13:20 Dose: 1 drop Tramadol HCl (Ultram) 50 mg PO HS [facility] Last Admin: 02/13/18 21:51 Dose: 50 mg Zinc Sulfate (Zinc Sulfate 220 Mg Cap) 220 mg PO DAILY [facility] Last Admin: 02/14/18 10:08 Dose: 220 mg - Labs Labs: 02/09/18 07:20 02/09/18 07:20 PT 12.2 SECONDS (9.7-12.2) 01/04/18 11:43 INR 1.1 01/04/18 11:43 APTT 26 SECONDS (21-34) 01/04/18 11:43 Attending/Attestation - Attestation I have personally seen and examined this patient.: Yes I have fully participated in the care of the patient.: Yes I have reviewed all pertinent clinical information, including history, physical exam and plan: Yes Notes (Text): Seen and examined by me has pain on left leg. No new changes on examination I agree with the resident's documentation of the assessment and the plan 02/14/18 15:37
[2018-02-14] MEDS: Magnesium Oxide 400 mg Tab UD PO SCH ×2 (10:07→18:33)
[2018-02-14] MEDS: Tetrahydrozoline Opht 0.05% Sol (15 ml) OD PRN (13:20)
[2018-02-15] MEDS: Sodium Chloride Nasal 0.65% Soln (30ml) NAS SCH ×6 (00:20→21:00)
--- NOTE | 2018-02-15 07:59 | CP.PCM.PN ---
Subjective - Date & Time of Evaluation Date of Evaluation: 02/15/18 Time of Evaluation: 07:55 - Subjective Subjective: Patient seen and examined at bedside. No acute events reported overnight. Patient continues to have some pain on her left lower extremity, and it is worse during PT. She denies dizziness, fever, chills, chest pain, SOB, and swelling in the lower extremities. Objective - Vital Signs/Intake and Output Vital Signs (last 24 hours): Temp Pulse Resp BP Pulse Ox 97.9 F 85 20 109/73 98 02/14/18 23:35 02/14/18 23:35 02/14/18 23:35 02/14/18 23:35 02/14/18 23:35 Intake and Output: 02/15/18 02/15/18 06:59 18:59 Intake Total 120 Output Total 600 Balance -480 - Medications Medications: Current Medications Acetaminophen (Tylenol 325mg Tab) 650 mg PO Q6H PRN PRN Reason: Pain, Mild (1-3) Last Admin: 02/15/18 06:10 Dose: 650 mg Amlodipine Besylate (Norvasc) 10 mg PO DAILY [facility] Last Admin: 02/14/18 10:08 Dose: 10 mg Ascorbic Acid (Vitamin C 500 Mg Tab) 500 mg PO DAILY [facility] Last Admin: 02/14/18 10:07 Dose: 500 mg Aspirin (Aspirin Chewable) 81 mg NG DAILY [facility] Last Admin: 02/14/18 10:08 Dose: 81 mg Clopidogrel Bisulfate (Plavix) 75 mg NG DAILY [facility] Last Admin: 02/14/18 10:08 Dose: 75 mg Docusate Sodium (Colace) 100 mg PO BID [facility] Last Admin: 02/14/18 18:32 Dose: 100 mg Famotidine (Pepcid) 20 mg PO BID [facility] Last Admin: 02/14/18 18:33 Dose: 20 mg Fluoxetine HCl (Prozac) 10 mg PO DAILY [facility] Last Admin: 02/14/18 10:08 Dose: 10 mg Folic Acid (Folic Acid) 1 mg PO DAILY [facility] Last Admin: 02/14/18 10:08 Dose: 1 mg Gabapentin (Neurontin) 300 mg PO TID [facility] Last Admin: 02/14/18 18:32 Dose: 300 mg Lisinopril (Zestril) 5 mg PO DAILY [facility] Last Admin: 02/14/18 10:07 Dose: 5 mg Loratadine (Claritin) 10 mg PO DAILY PRN PRN Reason: Allergy symptoms Magnesium Oxide (Mag-Ox) 400 mg PO BID [facility] Last Admin: 02/14/18 18:33 Dose: 400 mg Ondansetron HCl (Zofran Inj) 4 mg IVP DAILY@ONCE PRN PRN Reason: Nausea/Vomiting Polyethylene Glycol (Miralax) 17 gm PO DAILY PRN PRN Reason: Constipation Quetiapine Fumarate (Seroquel) 25 mg PO DAILY [facility] Last Admin: 02/14/18 10:07 Dose: 25 mg Rosuvastatin Calcium (Crestor) 40 mg PO HS [facility] Last Admin: 02/14/18 22:20 Dose: 40 mg Sodium Chloride (Colgate Baby Saline 30 Ml) 0 ml JYOTHI Q4H [facility] Last Admin: 02/15/18 04:08 Dose: Not Given Tetrahydrozoline HCl/Zinc Sulfate (Visine 0.05% Opht Soln) 2 ml OD Q4H PRN PRN Reason: itchy eyes Last Admin: 02/14/18 13:20 Dose: 1 drop Tramadol HCl (Ultram) 50 mg PO [facility] Last Admin: 02/14/18 22:21 Dose: 50 mg Zinc Sulfate (Zinc Sulfate 220 Mg Cap) 220 mg PO DAILY [facility] Last Admin: 02/14/18 10:08 Dose: 220 mg - Labs Labs: 02/09/18 07:20 02/09/18 07:20 PT 12.2 SECONDS (9.7-12.2) 01/04/18 11:43 INR 1.1 01/04/18 11:43 APTT 26 SECONDS (21-34) 01/04/18 11:43 - Additional Findings Additional findings: - Constitutional Appears: No Acute Distress - Head Exam Head Exam: ATRAUMATIC, NORMAL INSPECTION - Eye Exam Eye Exam: EOMI, Normal appearance - ENT Exam ENT Exam: Mucous Membranes Moist - Respiratory Exam Respiratory Exam: Clear to Ausculation Bilateral, NORMAL BREATHING PATTERN - Cardiovascular Exam Cardiovascular Exam: REGULAR RHYTHM, +S1, +S2 - GI/Abdominal Exam GI & Abdominal Exam: Soft, Normal Bowel Sounds. absent: Tenderness - Neurological Exam Neurological Exam: Alert, Awake, Oriented x3 Neuro motor strength exam: Left Upper Extremity: 0, Right Upper Extremity: 4, Left Lower Extremity: 0, Right Lower Extremity: 4 - Psychiatric Exam Psychiatric exam: Normal Affect, Normal Mood - Skin Skin Exam: Normal Color Assessment and Plan - Assessment and Plan (Free Text) Assessment: Disposition: Patient needs acute rehab at discharge Insurance has been approved. Pending confirmation of placement. Will continue to work with case management for discharge plans. Per PT, patient can not use a wheelchair because she cannot transfer from bed to chair without max assistance. Acute CVA affecting the right parietal/temporal area. * Dr. Castillo (neuro) consulted, help appreciated * Pureed/dysphagia diet * Head of bed elevation * PT/OT Imaging: * 01/[address]: Large hypodensity at the right brain suggestive of acute right MCA territory infarction. Suspicious for right dense MCA sign. If clinically warranted CTA of the head is suggested to evaluate for right MCA occlusion. * 01/04 CTA head and neck: Focal moderate stenosis approximately 75-80 percent noted at the origin of the right internal carotid artery with possible soft plaque. Mild approximately 55 percent stenosis noted at the origin of the left internal carotid artery. Diffuse atherosclerotic disease and calcification noted at the distal internal carotid arteries bilaterally with foci of mild stenosis noted at the supraclinoid portion of the left internal carotid artery. Diffuse approximately 50 percent stenosis of M1 segment of the right middle cerebral artery. Sharp cut off at the M1 bifurcation of the right middle cerebral artery noted. Occlusion of the anterior temporal M2 segment of the right middle cerebral artery at its origin. * 01/[address]: Acute infarct in the right frontal, parietal and temporal lobes. No acute hemorrhage. Midline shift to the left. Prior images have been requested for direct comparison. Comparison is made to prior report. * 01/04 Echo: Normal study with EF 65-70% * 01/[address]: Large right MCA and LAURI territory infarct changes which involve a large portion of the right cerebral hemisphere. The infarct exerts considerable mass effect with overlying sulcal effacement and compressive effects on the right lateral ventricle particularly the right temporal horn with mild [id number]-[id number]-zooe midline shift. No evidence of acute intracranial hemorrhage. Mild underlying chronic white matter ischemic changes seen left cerebral hemisphere as well. No obstructive hydrocephalus. * 01/05 MRI Brain: Acute infarct changes involving a good portion of the right cerebral hemisphere (distal branches of the right middle cerebral artery and anterior cerebral nor arteries). Questionable early hemorrhagic conversion changes right basal ganglia evidenced by foci of dark T2 signal in these locations on gradient echo sequence with isointense T1 signal. Persistent mass effect with mild midline shift. HEMORRHAGE: Questionable early hemorrhagic conversion changes right basal ganglia evidenced by foci of dark T2 signal in these locations on gradient echo sequence with isointense T1 signal * 01/05 Lower extremity US: negative for DVT * 01/[address]: Stable large right renal infarcted involving the right anterior middle cerebral artery territories as discussed above with stable mass effect effacing the sulci of the right cerebral hemisphere in causing a limited leftward some fall seen shift of 3-4 mm once again. No interval intracranial hemorrhage or expansion of the infarcted territory appreciated. Limited age- related neuro degenerative change reiterated at the left cerebral hemisphere. * 01/[address]: Acute/ subacute right frontotemporoparietal infarct. This involves both the LAURI and MCA territory. No hemorrhage. 2-3 mm midline shift towards the left. No significant change from prior examination. * 01/[address]: Expected changes status post right frontotemporoparietal infarct now with cortical laminar necrosis. No hemorrhage. Minimal midline shift. Medications: * Norvasc 10 mg QD * Lisinopril 5 mg QD * ASA 81 mg QD * Plavix 75 mg QD * discontinued (01/16/18) Valproate 500 mg IV Q12h due to elevated liver enzymes * Seroquel 25 mg QD * Fluoxetine 10 mg QD * Zinc 220 mg QD * Gabapentin 300mg BID * Tylenol 650mg po q6h prn Left ankle pain * Ankle X-ray shows no acute fractures * Continue PT * Tylenol prn UTI - resolved * UA: +1 Leuk esterase * Urine culture: Klebsiella Pneumoniae * Ciprofloxacin 400 mg in 200 mls @ 133 mls/hr IVPB Q12H [facility] * Stop date: 01/31/18 * Florastor 250 PO BID Constipation - resolved * CT abdomen and pelvis without contrast: 1. Constipation with fecal stasis in the sigmoid colon and rectum. No evidence of bowel obstruction. 2. No acute abdominal or pelvic abnormality. * On colace BID * gave 1 dose of miralax today - will advance if needed Vaginal yeast infection - resolved * Diflucan 200 mg PO once Seasonal Allergies * Claritin PRN * Visine PRN * Saline Nasal [place] * Mucinex x1 dose on 01/22 Heavy alcohol use * Counseled on cessation Hyperlipidemia * Cholesterol 210, Triglycerides 248, LDL 92, HDL 81 * Crestor 40 mg HS Prophylaxis * Pepcid 20 mg BID * Florastor 250 PO BID * SCDs * Claritin PRN allergy symptoms * Ensure BID * PT
[2018-02-15] MEDS: Magnesium Oxide 400 mg Tab UD PO SCH ×2 (09:13→18:06)
--- NOTE | 2018-02-15 14:18 | RAD ---
PROCEDURE: Left Foot Radiographs. HISTORY: left foot pain COMPARISON: None. FINDINGS: BONES: No acute fracture or destructive bony lesion identified. The central persist or worsen follow-up CT is advised or MRI, especially if pain is midfoot. Anatomy here overlaps and can be difficult to separate. JOINTS: Mild hallux valgus deformity appreciated. SOFT TISSUES: Normal. OTHER FINDINGS: None. IMPRESSION: No definitive fracture or dislocation appreciable. Mild hallux valgus deformity noted. If symptoms persist or worsen follow-up CT or MRI of the left foot is advised.
[2018-02-16] MEDS: Sodium Chloride Nasal 0.65% Soln (30ml) NAS SCH ×5 (00:05→15:52)
--- NOTE | 2018-02-16 04:19 | CP.PCM.PN ---
<Asad Rodriguez - Last Filed: 02/16/18 04:21> Subjective - Date & Time of Evaluation Date of Evaluation: 02/16/18 Time of Evaluation: 04:15 - Subjective Subjective: Progress note. Patient was seen and examined at bedside. No acute distress. Patient was sleeping comfortably in bed. Patient chest pain, dyspnea, abdominal pain, dizziness, fever, and pain/swelling in the lower extremities. No acute events overnight. Objective - Vital Signs/Intake and Output Vital Signs (last 24 hours): Temp Pulse Resp BP Pulse Ox 98.3 F 94 H 20 105/69 96 02/15/18 23:35 02/15/18 23:35 02/15/18 23:35 02/15/18 23:35 02/15/18 23:35 - Medications Medications: Current Medications Acetaminophen (Tylenol 325mg Tab) 650 mg PO Q6H PRN PRN Reason: Pain, Mild (1-3) Last Admin: 02/15/18 19:42 Dose: 650 mg Amlodipine Besylate (Norvasc) 10 mg PO DAILY REPLACED BY [facility] Last Admin: 02/15/18 09:13 Dose: 10 mg Ascorbic Acid (Vitamin C 500 Mg Tab) 500 mg PO DAILY REPLACED BY [facility] Last Admin: 02/15/18 09:14 Dose: 500 mg Aspirin (Aspirin Chewable) 81 mg NG DAILY REPLACED BY [facility] Last Admin: 02/15/18 09:14 Dose: 81 mg Clopidogrel Bisulfate (Plavix) 75 mg NG DAILY REPLACED BY [facility] Last Admin: 02/15/18 09:13 Dose: 75 mg Docusate Sodium (Colace) 100 mg PO BID REPLACED BY [facility] Last Admin: 02/15/18 18:06 Dose: 100 mg Famotidine (Pepcid) 20 mg PO BID REPLACED BY [facility] Last Admin: 02/15/18 18:06 Dose: 20 mg Fluoxetine HCl (Prozac) 10 mg PO DAILY REPLACED BY [facility] Last Admin: 02/15/18 09:14 Dose: 10 mg Folic Acid (Folic Acid) 1 mg PO DAILY REPLACED BY [facility] Last Admin: 02/15/18 09:13 Dose: 1 mg Gabapentin (Neurontin) 300 mg PO TID REPLACED BY [facility] Last Admin: 02/15/18 18:06 Dose: 300 mg Lisinopril (Zestril) 5 mg PO DAILY REPLACED BY [facility] Last Admin: 02/15/18 09:14 Dose: 5 mg Loratadine (Claritin) 10 mg PO DAILY PRN PRN Reason: Allergy symptoms Magnesium Oxide (Mag-Ox) 400 mg PO BID REPLACED BY [facility] Last Admin: 02/15/18 18:06 Dose: 400 mg Ondansetron HCl (Zofran Inj) 4 mg IVP DAILY@ONCE PRN PRN Reason: Nausea/Vomiting Polyethylene Glycol (Miralax) 17 gm PO DAILY PRN PRN Reason: Constipation Quetiapine Fumarate (Seroquel) 25 mg PO DAILY REPLACED BY [facility] Last Admin: 02/15/18 09:13 Dose: 25 mg Rosuvastatin Calcium (Crestor) 40 mg PO [facility] Last Admin: 02/15/18 21:34 Dose: 40 mg Sodium Chloride ([place] Baby Saline 30 Ml) 0 ml JYOTHI Q4H REPLACED BY [facility] Last Admin: 02/16/18 00:05 Dose: Not Given Tetrahydrozoline HCl/Zinc Sulfate (Visine 0.05% Opht Soln) 2 ml OD Q4H PRN PRN Reason: itchy eyes Last Admin: 02/14/18 13:20 Dose: 1 drop Tramadol HCl (Ultram) 50 mg PO [facility] Last Admin: 02/15/18 21:33 Dose: 50 mg Zinc Sulfate (Zinc Sulfate 220 Mg Cap) 220 mg PO DAILY REPLACED BY [facility] Last Admin: 02/15/18 09:13 Dose: 220 mg - Labs Labs: 02/09/18 07:20 02/09/18 07:20 PT 12.2 SECONDS (9.7-12.2) 01/04/18 11:43 INR 1.1 01/04/18 11:43 APTT 26 SECONDS (21-34) 01/04/18 11:43 - Constitutional Appears: Non-toxic, No Acute Distress - Head Exam Head Exam: ATRAUMATIC, NORMAL INSPECTION, NORMOCEPHALIC - Eye Exam Eye Exam: EOMI - ENT Exam ENT Exam: Mucous Membranes Moist - Neck Exam Neck Exam: Normal Inspection - Respiratory Exam Respiratory Exam: absent: Respiratory Distress - Cardiovascular Exam Cardiovascular Exam: +S1, +S2 - GI/Abdominal Exam GI & Abdominal Exam: Soft, Normal Bowel Sounds. absent: Tenderness - Extremities Exam Extremities Exam: Full ROM, Normal Inspection - Back Exam Back Exam: NORMAL INSPECTION - Neurological Exam Neurological Exam: Alert, Awake, CN II-XII Intact, Oriented x3 - Psychiatric Exam Psychiatric exam: Normal Affect, Normal Mood - Skin Skin Exam: Dry, Intact, Normal Color, Warm Assessment and Plan - Assessment and Plan (Free Text) Assessment: This is a 57 yo female with 1. Acute CVA affecting the right parietal/temporal area. * Dr. Castillo (neuro) consulted, help appreciated * Pureed/dysphagia diet * Head of bed elevation * PT/OT Imaging: * 01/[address]: Large hypodensity at the right brain suggestive of acute right MCA territory infarction. Suspicious for right dense MCA sign. If clinically warranted CTA of the head is suggested to evaluate for right MCA occlusion. * 01/04 CTA head and neck: Focal moderate stenosis approximately 75-80 percent noted at the origin of the right internal carotid artery with possible soft plaque. Mild approximately 55 percent stenosis noted at the origin of the left internal carotid artery. Diffuse atherosclerotic disease and calcification noted at the distal internal carotid arteries bilaterally with foci of mild stenosis noted at the supraclinoid portion of the left internal carotid artery. Diffuse approximately 50 percent stenosis of M1 segment of the right middle cerebral artery. Sharp cut off at the M1 bifurcation of the right middle cerebral artery noted. Occlusion of the anterior temporal M2 segment of the right middle cerebral artery at its origin. * 01/[address]: Acute infarct in the right frontal, parietal and temporal lobes. No acute hemorrhage. Midline shift to the left. Prior images have been requested for direct comparison. Comparison is made to prior report. * 01/04 Echo: Normal study with EF 65-70% * 01/[address]: Large right MCA and LAURI territory infarct changes which involve a large portion of the right cerebral hemisphere. The infarct exerts considerable mass effect with overlying sulcal effacement and compressive effects on the right lateral ventricle particularly the right temporal horn with mild [id number] midline shift. No evidence of acute intracranial hemorrhage. Mild underlying chronic white matter ischemic changes seen left cerebral hemisphere as well. No obstructive hydrocephalus. * 01/05 MRI Brain: Acute infarct changes involving a good portion of the right cerebral hemisphere (distal branches of the right middle cerebral artery and anterior cerebral nor arteries). Questionable early hemorrhagic conversion changes right basal ganglia evidenced by foci of dark T2 signal in these locations on gradient echo sequence with isointense T1 signal. Persistent mass effect with mild midline shift. HEMORRHAGE: Questionable early hemorrhagic conversion changes right basal ganglia evidenced by foci of dark T2 signal in these locations on gradient echo sequence with isointense T1 signal * 01/05 Lower extremity US: negative for DVT * 01/[address]: Stable large right renal infarcted involving the right anterior middle cerebral artery territories as discussed above with stable mass effect effacing the sulci of the right cerebral hemisphere in causing a limited leftward some fall seen shift of 3-4 mm once again. No interval intracranial hemorrhage or expansion of the infarcted territory appreciated. Limited age- related neuro degenerative change reiterated at the left cerebral hemisphere. * 01/[address]: Acute/ subacute right frontotemporoparietal infarct. This involves both the LAURI and MCA territory. No hemorrhage. 2-3 mm midline shift towards the left. No significant change from prior examination. * 01/[address]: Expected changes status post right frontotemporoparietal infarct now with cortical laminar necrosis. No hemorrhage. Minimal midline shift. Medications: * Norvasc 10 mg QD * Lisinopril 5 mg QD * ASA 81 mg QD * Plavix 75 mg QD * discontinued (01/16/18) Valproate 500 mg IV Q12h due to elevated liver enzymes * Seroquel 25 mg QD * Fluoxetine 10 mg QD * Zinc 220 mg QD * Gabapentin 300mg BID * Tylenol 650mg po q6h prn 2. Left ankle pain * Ankle X-ray shows no acute fractures * Continue PT * Tylenol prn 3. UTI - resolved * UA: +1 Leuk esterase * Urine culture: Klebsiella Pneumoniae * Florastor 250 PO BID 4. Constipation - resolved * CT abdomen and pelvis without contrast: 1. Constipation with fecal stasis in the sigmoid colon and rectum. No evidence of bowel obstruction. 2. No acute abdominal or pelvic abnormality. * On colace BID * gave 1 dose of miralax today - will advance if needed 5. Vaginal yeast infection - resolved * Diflucan 200 mg PO once 6. Seasonal Allergies * Claritin PRN * Visine PRN * Saline Nasal [place] * Mucinex x1 dose on 01/22 7. Heavy alcohol use * Counseled on cessation 8. Hx of Hyperlipidemia * Cholesterol 210, Triglycerides 248, LDL 92, HDL 81 * Crestor 40 mg HS 9. GI/DVT Prophylaxis * Pepcid 20 mg BID * Florastor 250 PO BID * SCDs * Claritin PRN allergy symptoms * Ensure BID * PT <Vitaliy Villarreal - Last Filed: 02/16/18 09:08> Objective - Vital Signs/Intake and Output Vital Signs (last 24 hours): Temp Pulse Resp BP Pulse Ox 97.9 F 80 18 131/86 99 02/16/18 09:02 02/16/18 09:02 02/16/18 09:02 02/16/18 09:02 02/16/18 09:02 Intake and Output: 02/16/18 02/16/18 06:59 18:59 Intake Total 0 Output Total 800 Balance -800 - Medications Medications: Current Medications Acetaminophen (Tylenol 325mg Tab) 650 mg PO Q6H PRN PRN Reason: Pain, Mild (1-3) Last Admin: 02/15/18 19:42 Dose: 650 mg Amlodipine Besylate (Norvasc) 10 mg PO DAILY REPLACED BY [facility] Last Admin: 02/15/18 09:13 Dose: 10 mg Ascorbic Acid (Vitamin C 500 Mg Tab) 500 mg PO DAILY REPLACED BY [facility] Last Admin: 02/15/18 09:14 Dose: 500 mg Aspirin (Aspirin Chewable) 81 mg NG DAILY REPLACED BY [facility] Last Admin: 02/15/18 09:14 Dose: 81 mg Clopidogrel Bisulfate (Plavix) 75 mg NG DAILY REPLACED BY [facility] Last Admin: 02/15/18 09:13 Dose: 75 mg Docusate Sodium (Colace) 100 mg PO BID REPLACED BY [facility] Last Admin: 02/15/18 18:06 Dose: 100 mg Famotidine (Pepcid) 20 mg PO BID REPLACED BY [facility] Last Admin: 02/15/18 18:06 Dose: 20 mg Fluoxetine HCl (Prozac) 10 mg PO DAILY REPLACED BY [facility] Last Admin: 02/15/18 09:14 Dose: 10 mg Folic Acid (Folic Acid) 1 mg PO DAILY REPLACED BY [facility] Last Admin: 02/15/18 09:13 Dose: 1 mg Gabapentin (Neurontin) 300 mg PO TID REPLACED BY [facility] Last Admin: 02/15/18 18:06 Dose: 300 mg Lisinopril (Zestril) 5 mg PO DAILY REPLACED BY [facility] Last Admin: 02/15/18 09:14 Dose: 5 mg Loratadine (Claritin) 10 mg PO DAILY PRN PRN Reason: Allergy symptoms Magnesium Oxide (Mag-Ox) 400 mg PO BID REPLACED BY [facility] Last Admin: 02/15/18 18:06 Dose: 400 mg Ondansetron HCl (Zofran Inj) 4 mg IVP DAILY@ONCE PRN PRN Reason: Nausea/Vomiting Polyethylene Glycol (Miralax) 17 gm PO DAILY PRN PRN Reason: Constipation Quetiapine Fumarate (Seroquel) 25 mg PO DAILY REPLACED BY [facility] Last Admin: 02/15/18 09:13 Dose: 25 mg Rosuvastatin Calcium (Crestor) 40 mg PO HS REPLACED BY [facility] Last Admin: 02/15/18 21:34 Dose: 40 mg Sodium Chloride (Long [place] Baby Saline 30 Ml) 0 ml JYOTHI Q4H REPLACED BY [facility] Last Admin: 02/16/18 04:10 Dose: Not Given Tetrahydrozoline HCl/Zinc Sulfate (Visine 0.05% Opht Soln) 2 ml OD Q4H PRN PRN Reason: itchy eyes Last Admin: 02/14/18 13:20 Dose: 1 drop Tramadol HCl (Ultram) 50 mg PO HS REPLACED BY [facility] Last Admin: 02/15/18 21:33 Dose: 50 mg Zinc Sulfate (Zinc Sulfate 220 Mg Cap) 220 mg PO DAILY REPLACED BY [facility] Last Admin: 02/15/18 09:13 Dose: 220 mg - Labs Labs: 02/09/18 07:20 02/09/18 07:20 PT 12.2 SECONDS (9.7-12.2) 01/04/18 11:43 INR 1.1 01/04/18 11:43 APTT 26 SECONDS (21-34) 01/04/18 11:43 Attending/Attestation - Attestation I have personally seen and examined this patient.: Yes I have fully participated in the care of the patient.: Yes I have reviewed all pertinent clinical information, including history, physical exam and plan: Yes Notes (Text): 02/16/18 09:07 Medical attending: Patient was seen and examined by me. Agree with the above note by the resident The patient is pending rehab, social workers have sent paper work for approval. The patient remains very talkative as before She continues to report about the same left arm and left leg parathesia. thank you Vitaliy Villarreal
[2018-02-16 09:05] VITALS: BP 131/86; PULSE 80; RESP 18; TEMP 97.9; O2SAT 99
[2018-02-16] MEDS: Magnesium Oxide 400 mg Tab UD PO SCH (09:16)
[2018-02-16] MEDS: Tetrahydrozoline Opht 0.05% Sol (15 ml) OD PRN (09:19)
--- NOTE | 2018-02-16 14:22 | CP.PCM.DIS ---
Provider - Provider Date of Admission: 01/04/18 13:10 Attending physician: Vitaliy Villarreal DO Consults: Neurology ~ Dr Jacob and Dr Castillo Time Spent in preparation of Discharge (in minutes): 29 Hospital Course - Lab Results Lab Results: Micro Results 02/07/18 14:56 Urine,Catheterized Urine Culture - Final No Growth (<1,000 CFU/ML) 01/30/18 06:57 Urine,Clean Catch Urine Culture - Final No Growth (<1,000 CFU/ML) 01/22/18 12:15 Urine,Catheterized Urine Culture - Final Klebsiella Pneumoniae Ssp Pneu 01/11/18 06:09 Naris MRSA Culture - Final MRSA NOT DETECTED 01/04/18 Unknown Naris MRSA Culture (Admit) - Final MRSA NOT DETECTED Most Recent Lab Values WBC 4.6 K/uL (4.8-10.8) L 02/09/18 07:20 RBC 3.46 Mil/uL (3.80-5.20) L 02/09/18 07:20 Hgb 11.1 g/dL (11.0-16.0) 02/09/18 07:20 Hct 32.4 % (34.0-47.0) L 02/09/18 07:20 MCV 93.6 fL (81.0-99.0) 02/09/18 07:20 MCH 32.2 pg (27.0-31.0) H 02/09/18 07:20 MCHC 34.4 g/dL (33.0-37.0) 02/09/18 07:20 RDW 14.0 % (11.5-14.5) 02/09/18 07:20 Plt Count 256 K/uL (130-400) 02/09/18 07:20 MPV 8.3 fL (7.2-11.7) 02/09/18 07:20 Neut % (Auto) 46.7 % (50.0-75.0) L 02/09/18 07:20 Lymph % (Auto) 32.7 % (20.0-40.0) 02/09/18 07:20 [place] % (Auto) 10.9 % (0.0-10.0) H 02/09/18 07:20 Eos % (Auto) 9.2 % (0.0-4.0) H 02/09/18 07:20 Baso % (Auto) 0.5 % (0.0-2.0) 02/09/18 07:20 Neut # (Auto) 2.2 K/uL (1.8-7.0) 02/09/18 07:20 Lymph # (Auto) 1.5 K/uL (1.0-4.3) 02/09/18 07:20 [place] # (Auto) 0.5 K/uL (0.0-0.8) 02/09/18 07:20 Eos # (Auto) 0.4 K/uL (0.0-0.7) 02/09/18 07:20 Baso # (Auto) 0.0 K/uL (0.0-0.2) 02/09/18 07:20 Neutrophils % (Manual) 85 % (50-75) H 01/15/18 16:24 Band Neutrophils % 1 % (0-2) 01/15/18 16:24 Lymphocytes % (Manual) 11 % (20-40) L 01/15/18 16:24 Monocytes % (Manual) 3 % (0-10) 01/15/18 16:24 Platelet Estimate Normal (NORMAL) 01/15/18 16:24 Hypochromasia (manual) Slight 01/15/18 16:24 Microcytosis (manual) Slight 01/15/18 16:24 PT 12.2 SECONDS (9.7-12.2) 01/04/18 11:43 INR 1.1 01/04/18 11:43 APTT 26 SECONDS (21-34) 01/04/18 11:43 Sodium 139 mmol/L (132-148) 02/09/18 07:20 Potassium 3.9 mmol/L (3.6-5.2) 02/09/18 07:20 Chloride 101 mmol/L (98-107) 02/09/18 07:20 Carbon Dioxide 28 mmol/L (22-30) 02/09/18 07:20 Anion Gap 13 (10-20) 02/09/18 07:20 BUN 15 mg/dL (7-17) 02/09/18 07:20 Creatinine 0.6 mg/dL (0.7-1.2) L 02/09/18 07:20 Est GFR ( Amer) > 60 02/09/18 07:20 Est GFR (Non-Af Amer) > 60 02/09/18 07:20 POC Glucose (mg/dL) 79 mg/dL (65-110) 02/16/18 06:24 Random Glucose 94 mg/dL (65-105) 02/09/18 07:20 Hemoglobin A1c 4.9 % (4.2-6.5) 01/05/18 05:56 Serum Osmolality 294 mosm/kg (272-300) 01/07/18 17:48 Calcium 9.8 mg/dl (8.6-10.4) 02/09/18 07:20 Phosphorus 5.5 mg/dL (2.5-4.5) H 02/09/18 07:20 Magnesium 1.9 mg/dL (1.6-2.3) 02/09/18 07:20 Total Bilirubin 0.3 mg/dL (0.2-1.3) 02/09/18 07:20 Direct Bilirubin 0.4 mg/dL (0.0-0.4) 01/08/18 04:30 GGT 550 U/L (8-78) H 01/05/18 05:56 AST 27 U/L (14-36) 02/09/18 07:20 ALT 25 U/L (9-52) 02/09/18 07:20 Alkaline Phosphatase 54 U/L (38-126) 02/09/18 07:20 Troponin I < 0.0120 ng/mL (0.00-0.120) 01/04/18 11:43 Total Protein 6.8 g/dL (6.3-8.3) 02/09/18 07:20 Albumin 3.4 g/dL (3.5-5.0) L 02/09/18 07:20 Globulin 3.4 gm/dL (2.2-3.9) 02/09/18 07:20 Albumin/Globulin Ratio 1.0 (1.0-2.1) 02/09/18 07:20 Triglycerides 116 mg/dL (0-149) D 01/05/18 05:56 Cholesterol 215 mg/dL (0-199) H 01/05/18 05:56 LDL Cholesterol Direct 137 mg/dL (0-129) H 01/05/18 05:56 HDL Cholesterol 77 mg/dL (30-70) H 01/05/18 05:56 Vitamin B12 587 pg/mL (239-931) 01/05/18 05:56 Folate > 20.0 ng/mL 01/05/18 05:56 Homocysteine 33.1 umol/L (4.7-12.6) H 01/05/18 05:56 Urine Color Straw (YELLOW) 02/10/18 20:01 Urine Clarity Clear (Clear) 02/10/18 20:01 Urine pH 7.0 (5.0-8.0) 02/10/18 20:01 Ur Specific [place] 1.005 (1.003-1.030) 02/10/18 20:01 Urine Protein Negative mg/dL (NEGATIVE) 02/10/18 20:01 Urine Glucose (UA) Normal mg/dL (Normal) 02/10/18 20:01 Urine Ketones Negative mg/dL (NEGATIVE) 02/10/18 20:01 Urine Blood Negative (NEGATIVE) 02/10/18 20:01 Urine Nitrate Negative (NEGATIVE) 02/10/18 20:01 Urine Bilirubin Negative (NEGATIVE) 02/10/18 20:01 Urine Urobilinogen Normal mg/dL (0.2-1.0) 02/10/18 20:01 Ur Leukocyte Esterase Neg [place]/uL (Negative) 02/10/18 20:01 Urine WBC (Auto) 5 /hpf (0-5) 01/22/18 12:54 Urine RBC (Auto) < 1 /hpf (0-3) 01/22/18 12:54 Ur Squamous Epith Cells < 1 /hpf (0-5) 02/10/18 20:01 Urine Bacteria Few (<OCC) H 01/22/18 12:54 Hyaline Casts 6-10 /lpf (0-2) H 02/07/18 14:56 Urine Opiates Screen Negative (NEGATIVE) 01/04/18 12:38 Urine Methadone Screen Negative (NEGATIVE) 01/04/18 12:38 Ur Barbiturates Screen Negative (NEGATIVE) 01/04/18 12:38 Valproic Acid 55.6 ug/mL (50.0-100.0) 01/17/18 07:27 Ur Phencyclidine Scrn Negative (NEGATIVE) 01/04/18 12:38 Ur Amphetamines Screen Negative (NEGATIVE) 01/04/18 12:38 U Benzodiazepines Scrn Negative (NEGATIVE) 01/04/18 12:38 U Oth Cocaine Metabols Negative (NEGATIVE) 01/04/18 12:38 U Cannabinoids Screen Negative (NEGATIVE) 01/04/18 12:38 Alcohol, Quantitative < 10 mg/dl (0-10) 01/04/18 11:43 Hepatitis A IgM Ab Negative (NEGATIVE) 01/05/18 05:56 Hep Bs Antigen Negative (NEGATIVE) 01/05/18 05:56 Hep B Core IgM Ab Negative (NEGATIVE) 01/05/18 05:56 Hepatitis C Antibody Negative (NEGATIVE) 01/05/18 05:56 Blood Type O POSITIVE 01/04/18 11:43 Antibody Screen Negative 01/04/18 11:43 - Hospital Course Hospital Course: This is a 57 year old female who did not have reported past medical history - who on 01/04/2018 was brought to the hospital after family noted there was left body weakness. She was visiting [place] from another [place]. They reported there were changes noted the previous night. However they did not call EMS because during the patient had been drinking with family. She went to bed and the next morning they noted she was still weak and was then brought the hospital. In the emgency room a CODE STROKE was called. The patient's speech was very slow , slurry, and she had difficulty taking sips of water. The was left arm, left leg weakness and also a facial drooping. The was right side eye deviation noted as well. A CT scan of the head showed concerning findings of the right MCA area. She was not a TPA candidate. Because of the extent of the stroke she was moved to the ICU for further monitoring. Repeat CT scan of the head showed there was a lot of swelling in the brain and mid line shifting from right to left She remained for almost one week in the ICU due to edema and fourtunately she responded very well to manitol ggt, hypertonic saline, as well as IV decadron. Because of her ongoing difficulty swallowing she required an NGT While in the ICU she required frequent CT scan of the head to monitor her progress. Family was at bedside on a regular basis as well. She eventually became more stable and on 01/11 she was moved out of the ICU to the telemetry floor. She had the NGT removed and her diet was carefully increased over a long period of time. On the telemetry floors she participated with PT/OT each day. Because of her social situation she remains in the hospital until the end of January , as of this writing February 13, 2018 while social workers and case workers were working to find patient a place to continue with further physical therapy. From what we are being informed the rehab will [facility] at [facility]. She needs to continue taking : Plavix 75 mg QD Norvasc 10 mg QD ASA 81 mp PO QD Lisinopril 5 PO QD Crestor 40 mg PO QD Seroquel 25 mg PO QD Prozac 10 mg Gabapentin 300 mg PO TID Encouraged the patient to avoid smoking and alcohol. Discharge Exam - Head Exam Head Exam: ATRAUMATIC, NORMAL INSPECTION, NORMOCEPHALIC - Eye Exam Eye Exam: absent: EOMI - Respiratory Exam Respiratory Exam: Clear to PA & Lateral, NORMAL BREATHING PATTERN, UNREMARKABLE - Cardiovascular Exam Cardiovascular Exam: REGULAR RHYTHM - GI/Abdominal Exam GI & Abdominal Exam: Normal Bowel Sounds, Unremarkable. absent: Distended, Firm , Guarding - Neurological Exam Neurological exam: Abnormal Gait, Alert, Oriented x3 Additional comments: There is tounge deviation and a left lateral gaze She has 0/5 muscle strength over the left arm, left hand, left foot, and left leg. Her pupils are unequal with right 3 mm, brisk and left eye 4 mm sluggish - Psychiatric Exam Psychiatric exam: Depressed, Flat Affect - Skin Skin Exam: Normal Color, Warm Discharge Plan - Follow Up Plan Condition: FAIR Disposition: REHAB FACILITY/REHAB UNIT Instructions: Heart Healthy Diet, Smoking: Not Just Harmful to Your Lungs and Heart, Stroke (DC), Quitting Smoking Referrals: Lars Castillo MD [Staff Provider] -
== END 2018-02-16 16:45 | DRG 14 ==
LOC: C.ER 11:30 → EEVIPCON 13:10 → C.9I 13:10 → C.6T 01-11 01:20
PROVIDERS: ADMIT Internal Medicine; ATTEND Hospitalist
PROC: 05HM33Z Insertion of Infusion Device into Right Internal Jugular Vein, Percutaneous Approach (ICD-10-PCS; principal; 2018-01-05)
PROC: B543ZZA Ultrasonography of Right Jugular Veins, Guidance (ICD-10-PCS; 2018-01-05)
DX: I63.511 Cerebral infarction due to unspecified occlusion or stenosis of right middle cerebral artery (principal); N39.0 Urinary tract infection, site not specified; I63.529 Cerebral infarction due to unspecified occlusion or stenosis of unspecified anterior cerebral artery; G93.6 Cerebral edema; G81.94 Hemiplegia, unspecified affecting left nondominant side; I65.21 Occlusion and stenosis of right carotid artery; I10 Essential (primary) hypertension; R29.810 Facial weakness; R13.10 Dysphagia, unspecified; E78.5 Hyperlipidemia, unspecified; R47.1 Dysarthria and anarthria; F10.20 Alcohol dependence, uncomplicated; K59.00 Constipation, unspecified; F17.210 Nicotine dependence, cigarettes, uncomplicated; L29.9 Pruritus, unspecified; W06.XXXA Fall from bed, initial encounter; Y92.003 Bedroom of unspecified non-institutional (private) residence as the place of occurrence of the external cause; Z91.81 History of falling

== ENCOUNTER 2018-06-04 10:00 | Day surgery (SDC) | payer MEDICAID ==
[2018-06-04] MEDS ORDERED: Lidocaine 4% (Laryng-O-Jet) Kit MM ONE (10:54)
[2018-06-04] MEDS ORDERED: Propofol 10 mg/ml Inj (20 ML) ONE (11:10)
[2018-06-04] MEDS ORDERED: Lidocaine 2% MPF (5 ml) Inj ONE (11:10)
[2018-06-04] MEDS ORDERED: Phenylephrine 10 mg/ml Inj ONE (11:33)
--- NOTE | 2018-06-05 10:50 | CARD ---
APPROVED REPORT Date of service: 06/04/2018 EXAM: Transesophageal echocardiogram with color flow Doppler. INDICATION STROKE Mitral Valve E/A ratio0.0 TDI E/Lateral E'0.0E/Medial E'0.0 Reason For Test : Rule out cardiac source of emboli. PROCEDURE After obtaining informed consent, patient underwent transesophageal echo in the [employer]. Type of Sedation : Conscious Sedation Sedation was provided by anesthesiologist. Sedation was achieved with intravenously. Transesophageal probe was inserted and advanced into esophagus without difficulty. Echo enhancement indication: R/O Septal defect. Echo enhancement agent administered: Agitated Saline The TAYLOR was performed without complications. Throughout the procedure, the blood pressure, pulse oximetry, cardiac rhythm, and rate were monitored. The patient tolerated the procedure without adverse effects. Recovery from conscious sedation was uneventful and vital signs were stable. LEFT VENTRICLE The left ventricle is normal size. There is mild to moderate concentric left ventricular hypertrophy. The left ventricular function is normal. The left ventricular ejection fraction is within the normal range. The Ejection Fraction is 60-65%. There is normal LV segmental wall motion. Tissue Doppler imaging reveals abnormal left ventricular diastolic dysfunction. Transmitral Doppler flow pattern is Grade I-abnormal relaxation pattern. No left ventricle thrombus noted on this study. There is no ventricular septal defect visualized. There is no left ventricular aneurysm. There is no mass noted in the left ventricle. RIGHT VENTRICLE The right ventricle is mildly dilated. There is normal right ventricular wall thickness. The right ventricular systolic function is normal. ATRIA The left atrium size is normal. The right atrium size is normal. The interatrial septum is intact with no evidence for an atrial septal defect. AORTIC VALVE The aortic valve is normal in structure. There is trace to mild aortic regurgitation. There is no aortic valvular stenosis. There is no aortic valvular vegetation. MITRAL VALVE The mitral valve is normal in structure. There is no evidence of mitral valve prolapse. There is no mitral valve stenosis. Mitral regurgitation is mild to moderate. TRICUSPID VALVE The tricuspid valve is normal in structure. There is trace to mild tricuspid regurgitation. There is no tricuspid valve prolapse or vegetation. There is no tricuspid valve stenosis. PULMONIC VALVE The pulmonary valve is normal in structure. There is no pulmonic valvular regurgitation. There is no pulmonic valvular stenosis. GREAT VESSELS The aortic root is normal in size. The ascending aorta is normal in size. The pulmonary artery is normal. The IVC is normal in size and collapses >50% with inspiration. PERICARDIAL EFFUSION There is no pericardial effusion. There is no pleural effusion. <Conclusion> The left ventricular function is normal. The left ventricular ejection fraction is within the normal range. The Ejection Fraction is 60-65%. Tissue Doppler imaging reveals abnormal left ventricular diastolic dysfunction. Transmitral Doppler flow pattern is Grade I-abnormal relaxation pattern. Mitral regurgitation is mild to moderate.
== END 2018-06-04 14:21 ==
LOC: C.CATHLAB 10:00
PROVIDERS: ATTEND Internal Medicine Interventional Cardiology
DX: I63.411 Cerebral infarction due to embolism of right middle cerebral artery (principal)
CPT/HCPCS: 93312; J2370; J2704; J3010

== ENCOUNTER 2018-08-25 11:35 | Day surgery (SDC) | payer MEDICAID ==
[2018-08-25] MEDS ORDERED: ceFAZolin 1 gm FROZEN Premix 1 GM/50 ML ML IVPB ONE (14:12)
[2018-08-25] MEDS ORDERED: Lidocaine Hydrochloride 0 ML INJ ONE (14:17)
[2018-08-25] MEDS ORDERED: Lidocaine 2% MPF (5 ml) Inj ONE (14:20)
[2018-08-25 14:55] VITALS: BMI 32.9
--- NOTE | 2018-08-26 07:18 | OP ---
PROCEDURE DATE: 08/25/2018 PROCEDURE: Insertion of a Medtronic Reveal LINQ, LNQ11, serial number [id number] as loop recorder. PHYSICIAN PERFORMING PROCEDURE: Neftali De Leon MD REFERRING PHYSICIAN: Jan Dunn MD PREOPERATIVE DIAGNOSIS: Cryptogenic stroke. POSTOPERATIVE DIAGNOSIS: Cryptogenic stroke. HISTORY: Ms. Keli Bui is a very pleasant 57-year-old female with a history of cryptogenic stroke in 12/2017 with residual left-sided weakness, who now currently resides in a rehab, who underwent echocardiogram, EKGs, and telemetry monitoring with structural normal heart and no appreciable arrhythmia, who now presents today for insertion of a loop recorder for cryptogenic stroke. RISKS: The risks of the procedure, including bleeding and infection, were describe in detail with the patient. The patient understands and is willing to proceed. PROCEDURE DETAILS: After informed consent was obtained, the patient was brought to the electrophysiology lab at [facility] in [place], [place]. An IV antibiotic was initiated. The anterior chest was prepped and draped in a sterile fashion. An area, 2 fingerbreadths to the left of the fourth intercostal space, was infiltrated with 1% lidocaine. The Medtronic LINQ incision tool was utilized to make a small incision, and the Medtronic loop recorder was inserted, using the Medtronic plunger tool. The incision was held, and manual pressure was used to achieve hemostasis. The incision was covered with Steri-Strips as well as a Tegaderm and Telfa. COMPLICATIONS: None. RESULTS: Successful insertion of a Medtronic LINQ loop recorder, cryptogenic stroke. POSTPROCEDURE INSTRUCTIONS: 1. The patient should not get the incision wet for 3 days. 2. The patient should remove the dressing in 3 days. 3. The patient should not remove the Steri-Strips, these will fall off by themselves in 3 weeks. 4. Please follow up with in my office at [facility] at [place] in 2 to 3 weeks, please call [phone] for an appointment. 5. Please call [phone] for any questions. Neftali De Leon MD
== END 2018-08-25 15:42 ==
LOC: C.SPRAD 11:35
PROVIDERS: ATTEND Internal Medicine
DX: R55 Syncope and collapse (principal); I63.9 Cerebral infarction, unspecified; I69.354 Hemiplegia and hemiparesis following cerebral infarction affecting left non-dominant side
CPT/HCPCS: 33282; J0690